=== PATIENT | female | born 1935 | race Caucasian/White ===

== ENCOUNTER → 2020-07-20 08:42 | Outpatient (REF) | payer SELFPAY | LOC: OLS.ACW200 08:42 | PROVIDERS: Internal Medicine; Referring Provider Family Medicine; Visit Provider Family Medicine | DX: Z03.818 Encounter for observation for suspected exposure to other biological agents ruled out (principal) | CPT/HCPCS: 87635; U0003 ==

== ENCOUNTER → 2020-09-23 09:25 | Outpatient (REF) | payer MEDICARE, SELFPAY ==
[2020-09-23 10:37] LABS: Color, Urine Yellow (Yellow); Glucose, Dipstick Normal (Normal); Ketone-Dipstick Negative (Negative); Leukocyte Esterase-Dipstick 500 /ul (Negative); Nitrite-Dipstick Positive (Negative); Occult Blood-Urine 50 /ul (Negative); Protein-Dipstick 30 mg/dl (Negative); Specific Gravity, Urine 1.015 (1.002-1.030); Urine Bilirubin Dipstick Negative (Negative); Urine Clarity Sl. Cloudy (Clear); Urine Urobilinogen Normal (Normal); Urine pH 6.5 (5.0 - 8.0)
== END ==
LOC: OLS.ACW100 09:25
PROVIDERS: Visit Provider Family Medicine
DX: R41.82 Altered mental status, unspecified (principal); R35.0 Frequency of micturition
CPT/HCPCS: 81002; 87086; 87088; 87186

== ENCOUNTER → 2020-10-28 05:00 | Outpatient (REF) | payer MEDICARE, SELFPAY ==
[2020-10-28 08:18] LABS: Erythrocyte Sedimentation Rate 30 mm/hr (0-30)
[2020-10-28 08:19] LABS: Hematocrit 42.6 % (37-47); Hemoglobin 14.3 g/dL (12.0-15.0); Mean Corp Hgb Conc 33.6 g/dL (32-36); Mean Corpuscular Hgb 31.2 pg (27.0-32.0); Mean Corpuscular Volume 92.8 fL (81-99); Platelet Count 311 K/mm3 (150-450); RBC Distribution Width SD 44.1 fl (35.1-43.9); Red Blood Count 4.59 M/mm3 (4.2-5.4); White Blood Count 8.5 K/mm3 (4.4-11.0)
[2020-10-28 08:23] LABS: Vitamin D,25 Hydroxy 52.9 ng/mL
[2020-10-28 08:25] LABS: Hemoglobin A1c 6.3 % (3.8-5.6)
[2020-10-28 08:27] LABS: ALB/GLOB Ratio 0.9 RATIO (0.9-2.4); AST(SGOT) 13 U/L (15-37); Alanine Aminotransfer ALT/SGPT 20 U/L (13-56); Albumin, Serum 3.3 g/dL (3.2-5.0); Alkaline Phosphatase 92 U/L (45-117); Anion Gap 9 (5-15); BUN 8 mg/dL (7-18); BUN/Creat Ratio 16.8 RATIO (10-20); Calcium,Total 9.8 mg/dL (8.5-10.1); Chloride 105 mmol/L (98-107); Creatinine, Serum 0.48 mg/dL (0.55-1.02); EST Glomerular Filtration Rate 132 mL/min (>60); Est Glom Filt Rate - Afr Amer 160 mL/min (>60); Globulin 3.8 g/dL (2.2-4.2); Glucose 134 mg/dL (74-106); Magnesium 1.6 mg/dL (1.6-2.6); Potassium 3.8 mmol/L (3.5-5.1); Protein, Total 7.1 g/dL (6.4-8.2); Sodium Level 138 mmol/L (136-145); Thyroid Stim Hormone (TSH) 0.48 uIU/mL (0.358-3.74)
== END ==
LOC: OLS.ACW100 05:00
PROVIDERS: Referring Provider Family Medicine; Visit Provider Family Medicine
DX: M62.82 Rhabdomyolysis (principal); R55 Syncope and collapse; A41.9 Sepsis, unspecified organism; N30.00 Acute cystitis without hematuria; N10 Acute pyelonephritis; M62.81 Muscle weakness (generalized); R41.841 Cognitive communication deficit
CPT/HCPCS: 36415; 80053; 82306; 83036; 83735; 84443; 85027; 85652

== ENCOUNTER → 2021-02-24 11:05 | Outpatient (REF) | payer MEDICARE, MEDICAID, SELFPAY ==
[2021-02-24 12:04] LABS: Hematocrit 40.4 % (37-47); Hemoglobin 13.3 g/dL (12.0-15.0); Mean Corp Hgb Conc 32.9 g/dL (32-36); Mean Corpuscular Hgb 31.8 pg (27.0-32.0); Mean Corpuscular Volume 96.7 fL (81-99); Mean Platelet Vol. 9.8 fl (6.2-12.0); Platelet Count 256 K/mm3 (150-450); RBC Distribution Width CV 11.9 % (11.6-14.6); RBC Distribution Width SD 42.2 fl (35.1-43.9); Red Blood Count 4.18 M/mm3 (4.2-5.4); White Blood Count 7.2 K/mm3 (4.4-11.0)
[2021-02-24 12:19] LABS: AST(SGOT) 14 U/L (15-37); Alanine Aminotransfer ALT/SGPT 21 U/L (13-56); Alkaline Phosphatase 110 U/L (45-117); Anion Gap 3 (5-15); BUN 9 mg/dL (7-18); BUN/Creat Ratio 18.7 RATIO (10-20); Bilirubin, Direct 0.18 mg/dL (0.00-0.30); Calcium,Total 9.5 mg/dL (8.5-10.1); Chloride 107 mmol/L (98-107); Cholesterol 120 mg/dL (200); Creatinine, Serum 0.48 mg/dL (0.55-1.02); EST Glomerular Filtration Rate 130 mL/min (>60); Est Glom Filt Rate - Afr Amer 158 mL/min (>60); Globulin 3.5 g/dL (2.2-4.2); Glucose 109 mg/dL (74-106); High Density Lipoprotein 51 mg/dL; Potassium 3.9 mmol/L (3.5-5.1); Protein, Total 6.5 g/dL (6.4-8.2); Sodium Level 142 mmol/L (136-145); Triglycerides 131 mg/dL; Very Low Density Lipoprotein 26 mg/dL (5-40)
== END ==
LOC: OLS.ACW100 11:05
PROVIDERS: Visit Provider Family Medicine
DX: R07.9 Chest pain, unspecified (principal)
CPT/HCPCS: 36415; 80048; 80061; 80076; 85027

== ENCOUNTER → 2021-04-27 05:00 | Outpatient (REF) | payer MEDICARE, MEDICAID, SELFPAY ==
[2021-04-27 09:16] LABS: AST(SGOT) 14 U/L (15-37); Alanine Aminotransfer ALT/SGPT 21 U/L (13-56); Albumin, Serum 2.8 g/dL (3.2-5.0); Alkaline Phosphatase 106 U/L (45-117); Anion Gap 6 (5-15); BUN 11 mg/dL (7-18); BUN/Creat Ratio 23.1 RATIO (10-20); Bilirubin, Direct 0.16 mg/dL (0.00-0.30); Calcium,Total 9.4 mg/dL (8.5-10.1); Chloride 107 mmol/L (98-107); Cholesterol 130 mg/dL (200); Creatinine, Serum 0.48 mg/dL (0.55-1.02); EST Glomerular Filtration Rate 131 mL/min (>60); Est Glom Filt Rate - Afr Amer 159 mL/min (>60); Globulin 3.4 g/dL (2.2-4.2); Glucose 111 mg/dL (74-106); High Density Lipoprotein 48 mg/dL; Potassium 3.9 mmol/L (3.5-5.1); Protein, Total 6.2 g/dL (6.4-8.2); Sodium Level 141 mmol/L (136-145); Thyroid Stim Hormone (TSH) 0.87 uIU/mL (0.358-3.74); Triglycerides 135 mg/dL; Very Low Density Lipoprotein 27 mg/dL (5-40)
[2021-04-27 09:36] LABS: Vitamin D,25 Hydroxy 49.1 ng/mL
== END ==
LOC: OLS.ACW100 05:00
PROVIDERS: Visit Provider Family Medicine
DX: M62.82 Rhabdomyolysis (principal); R55 Syncope and collapse; A41.9 Sepsis, unspecified organism; N30.00 Acute cystitis without hematuria; N10 Acute pyelonephritis; M62.81 Muscle weakness (generalized); R41.841 Cognitive communication deficit; E66.01 Morbid (severe) obesity due to excess calories; I10 Essential (primary) hypertension; E11.9 Type 2 diabetes mellitus without complications; E55.9 Vitamin D deficiency, unspecified
CPT/HCPCS: 36415; 80048; 80061; 80076; 82306; 84443

== ENCOUNTER → 2021-12-21 | Outpatient (REF) | payer MEDICAID, SELFPAY ==
[2021-12-21 09:14] LABS: Hematocrit 41.3 % (37-47); Hemoglobin 13.4 g/dL (12.0-15.0); Mean Corp Hgb Conc 32.4 g/dL (32-36); Mean Corpuscular Hgb 31.3 pg (27.0-32.0); Mean Corpuscular Volume 96.5 fL (81-99); Mean Platelet Vol. 9.8 fl (6.2-12.0); Platelet Count 262 K/mm3 (150-450); RBC Distribution Width CV 12.6 % (11.6-14.6); RBC Distribution Width SD 44.5 fl (35.1-43.9); Red Blood Count 4.28 M/mm3 (4.2-5.4); White Blood Count 7.9 K/mm3 (4.4-11.0)
[2021-12-21 09:29] LABS: Vitamin D,25 Hydroxy 51.9 ng/mL
[2021-12-21 09:38] LABS: Hemoglobin A1c 6.4 % (3.8-5.6)
[2021-12-21 09:50] LABS: ALB/GLOB Ratio 0.8 RATIO (0.9-2.4); AST(SGOT) 15 U/L (15-37); Alanine Aminotransfer ALT/SGPT 23 U/L (13-56); Alkaline Phosphatase 120 U/L (45-117); Anion Gap 4 (5-15); BUN 18 mg/dL (7-18); BUN/Creat Ratio 31.4 RATIO (10-20); Calcium,Total 9.5 mg/dL (8.5-10.1); Chloride 107 mmol/L (98-107); Cholesterol 150 mg/dL (200); Creatinine, Serum 0.57 mg/dL (0.55-1.02); EST Glomerular Filtration Rate 106 mL/min (>60); Est Glom Filt Rate - Afr Amer 128 mL/min (>60); Globulin 3.6 g/dL (2.2-4.2); Glucose 135 mg/dL (74-106); High Density Lipoprotein 57 mg/dL; Potassium 4.1 mmol/L (3.5-5.1); Protein, Total 6.6 g/dL (6.4-8.2); Sodium Level 140 mmol/L (136-145); Triglycerides 105 mg/dL; Very Low Density Lipoprotein 21 mg/dL (5-40)
== END | disposition home or self-care (01) ==
LOC: OLS.ACW100 05:00
PROVIDERS: Referring Provider Family Medicine; Visit Provider Family Medicine
DX: M62.82 Rhabdomyolysis (principal); A41.9 Sepsis, unspecified organism; R55 Syncope and collapse; N30.00 Acute cystitis without hematuria; N10 Acute pyelonephritis; M62.81 Muscle weakness (generalized); R41.841 Cognitive communication deficit
CPT/HCPCS: 36415; 80053; 80061; 82306; 83036; 84443; 85027

== ENCOUNTER → 2022-10-01 | Outpatient (REF) | payer MEDICAID, SELFPAY ==
[2022-10-01 07:49] LABS: Anion Gap 9 (5-15); BUN 13 mg/dL (7-18); BUN/Creat Ratio 23.6 RATIO (10-20); Calcium,Total 9.8 mg/dL (8.5-10.1); Chloride 107 mmol/L (98-107); Creatinine, Serum 0.55 mg/dL (0.55-1.02); EST Glomerular Filtration Rate 111 mL/min (>60); Est Glom Filt Rate - Afr Amer 134 mL/min (>60); Glucose 125 mg/dL (74-106); Potassium 4.3 mmol/L (3.5-5.1); Sodium Level 140 mmol/L (136-145)
== END | disposition home or self-care (01) ==
LOC: OLS.ACW100 05:00
PROVIDERS: Visit Provider Family Medicine
DX: M62.82 Rhabdomyolysis (principal); R55 Syncope and collapse; A41.9 Sepsis, unspecified organism; N30.00 Acute cystitis without hematuria; N10 Acute pyelonephritis; M62.81 Muscle weakness (generalized); R41.841 Cognitive communication deficit
CPT/HCPCS: 36415; 80048

== ENCOUNTER → 2022-10-30 | Outpatient (REF) | payer MEDICAID, SELFPAY ==
[2022-10-30 09:22] LABS: Hemoglobin A1c 6.6 % (3.8-5.6)
[2022-10-30 09:23] LABS: Magnesium 1.8 mg/dL (1.6-2.6)
== END | disposition home or self-care (01) ==
LOC: OLS.ACW100 05:00
PROVIDERS: Visit Provider Family Medicine
DX: Z79.899 Other long term (current) drug therapy (principal); I10 Essential (primary) hypertension; N30.00 Acute cystitis without hematuria; R41.841 Cognitive communication deficit; R55 Syncope and collapse; M62.82 Rhabdomyolysis
CPT/HCPCS: 36415; 83036; 83735

== ENCOUNTER → 2023-01-09 | Outpatient (REF) | payer MEDICAID, SELFPAY ==
[2023-01-09 08:20] LABS: Hemoglobin A1c 8.4 % (3.8-5.6)
== END | disposition home or self-care (01) ==
LOC: OLS.ACW100 05:00
PROVIDERS: Visit Provider Family Medicine
DX: M62.82 Rhabdomyolysis (principal); R55 Syncope and collapse; A41.9 Sepsis, unspecified organism; N30.00 Acute cystitis without hematuria; N10 Acute pyelonephritis; R41.841 Cognitive communication deficit; Z79.899 Other long term (current) drug therapy
CPT/HCPCS: 36415; 83036

== ENCOUNTER → 2023-01-16 | Outpatient (REF) | payer MEDICAID, SELFPAY ==
[2023-01-16 10:05] LABS: Vitamin D,25 Hydroxy 80.6 ng/mL
[2023-01-16 10:09] LABS: Cholesterol 121 mg/dL (200); High Density Lipoprotein 46 mg/dL; Magnesium 2.1 mg/dL (1.6-2.6); Thyroid Stim Hormone (TSH) 1.03 uIU/mL (0.358-3.74); Triglycerides 124 mg/dL; Very Low Density Lipoprotein 25 mg/dL (5-40)
== END | disposition home or self-care (01) ==
LOC: OLS.ACW100 05:00
PROVIDERS: Visit Provider Family Medicine
DX: M62.82 Rhabdomyolysis (principal); R55 Syncope and collapse; A41.9 Sepsis, unspecified organism; N30.00 Acute cystitis without hematuria; N10 Acute pyelonephritis; M62.81 Muscle weakness (generalized); R41.841 Cognitive communication deficit
CPT/HCPCS: 36415; 80061; 82306; 83735; 84443

== ENCOUNTER → 2023-02-14 | Outpatient (REF) | payer MEDICAID, SELFPAY ==
[2023-02-14 10:12] LABS: Anion Gap 6 (5-15); BUN 14 mg/dL (7-18); BUN/Creat Ratio 32.2 RATIO (10-20); Calcium,Total 9.5 mg/dL (8.5-10.1); Chloride 108 mmol/L (98-107); Creatinine, Serum 0.44 mg/dL (0.55-1.02); EST Glomerular Filtration Rate 146 mL/min (>60); Est Glom Filt Rate - Afr Amer 176 mL/min (>60); Glucose 128 mg/dL (74-106); Sodium Level 143 mmol/L (136-145); Uric Acid 4.9 mg/dL (2.6-6.0)
== END | disposition home or self-care (01) ==
LOC: OLS.ACW100 04:00
PROVIDERS: Referring Provider Family Medicine; Visit Provider Family Medicine
DX: M62.82 Rhabdomyolysis (principal); R55 Syncope and collapse; A41.9 Sepsis, unspecified organism; N30.00 Acute cystitis without hematuria; N10 Acute pyelonephritis; M62.81 Muscle weakness (generalized); R41.841 Cognitive communication deficit
CPT/HCPCS: 36415; 80048; 84550

== ENCOUNTER → 2023-06-10 | Outpatient (REF) | payer MEDICAID, SELFPAY ==
[2023-06-10 08:37] LABS: Hematocrit 43.7 % (37-47); Hemoglobin 13.8 g/dL (12.0-15.0); Mean Corp Hgb Conc 31.6 g/dL (32-36); Mean Corpuscular Hgb 30.5 pg (27.0-32.0); Mean Corpuscular Volume 96.7 fL (81-99); Mean Platelet Vol. 10.1 fl (6.2-12.0); Platelet Count 262 K/mm3 (150-450); RBC Distribution Width CV 12.5 % (11.6-14.6); RBC Distribution Width SD 44.8 fl (35.1-43.9); Red Blood Count 4.52 M/mm3 (4.2-5.4); White Blood Count 11.1 K/mm3 (4.4-11.0)
[2023-06-10 08:52] LABS: Anion Gap 2 (5-15); BUN 14 mg/dL (7-18); BUN/Creat Ratio 28.3 RATIO (10-20); Calcium,Total 9.3 mg/dL (8.5-10.1); Chloride 106 mmol/L (98-107); EST Glomerular Filtration Rate 125 mL/min (>60); Est Glom Filt Rate - Afr Amer 152 mL/min (>60); Glucose 209 mg/dL (74-106); Potassium 3.9 mmol/L (3.5-5.1); Sodium Level 135 mmol/L (136-145)
== END | disposition home or self-care (01) ==
LOC: OLS.ACW100 05:00
PROVIDERS: Visit Provider Family Medicine
DX: M62.82 Rhabdomyolysis (principal); R55 Syncope and collapse; A41.9 Sepsis, unspecified organism; N30.00 Acute cystitis without hematuria; I10 Essential (primary) hypertension; M62.81 Muscle weakness (generalized); R41.841 Cognitive communication deficit
CPT/HCPCS: 36415; 80048; 83036; 85027

== ENCOUNTER → 2023-07-12 | Outpatient (REF) | payer MEDICAID, SELFPAY ==
[2023-07-12 09:44] LABS: T3 Total - Triiodothyronine 0.84 ng/mL (0.6-1.81); Vitamin D,25 Hydroxy 61.9 ng/mL
[2023-07-12 09:48] LABS: Cholesterol 124 mg/dL (200); High Density Lipoprotein 46 mg/dL; T4 Total, Thyroxin 10.3 ug/dL (4.8-13.9); Thyroid Stim Hormone (TSH) 0.98 uIU/mL (0.358-3.74); Triglycerides 156 mg/dL; Very Low Density Lipoprotein 31 mg/dL (5-40)
== END | disposition home or self-care (01) ==
LOC: OLS.ACW100 05:00
PROVIDERS: Visit Provider Family Medicine
DX: E03.9 Hypothyroidism, unspecified (principal); M62.82 Rhabdomyolysis; R55 Syncope and collapse; A41.9 Sepsis, unspecified organism; N30.00 Acute cystitis without hematuria; N10 Acute pyelonephritis; M62.81 Muscle weakness (generalized); R41.841 Cognitive communication deficit
CPT/HCPCS: 36415; 80061; 82306; 84436; 84443; 84480

== ENCOUNTER → 2023-10-21 | Outpatient (REF) | payer MEDICAID, SELFPAY ==
[2023-10-21 09:21] LABS: Hematocrit 44.7 % (37-47); Hemoglobin 14.4 g/dL (12.0-15.0); Mean Corp Hgb Conc 32.2 g/dL (32-36); Mean Corpuscular Hgb 30.7 pg (27.0-32.0); Mean Corpuscular Volume 95.3 fL (81-99); Mean Platelet Vol. 9.9 fl (6.2-12.0); Platelet Count 259 K/mm3 (150-450); RBC Distribution Width CV 12.6 % (11.6-14.6); RBC Distribution Width SD 43.8 fl (35.1-43.9); Red Blood Count 4.69 M/mm3 (4.2-5.4); White Blood Count 8.4 K/mm3 (4.4-11.0)
[2023-10-21 10:13] LABS: Anion Gap 6 (5-15); BUN 11 mg/dL (7-18); Calcium,Total 9.7 mg/dL (8.5-10.1); Chloride 107 mmol/L (98-107); EST Glomerular Filtration Rate 124 mL/min (>60); Est Glom Filt Rate - Afr Amer 149 mL/min (>60); Glucose 133 mg/dL (74-106); Sodium Level 140 mmol/L (136-145)
[2023-10-22 09:22] LABS: Color, Urine Yellow (Yellow); Glucose, Dipstick Normal (Normal); Ketone-Dipstick Negative (Negative); Leukocyte Esterase-Dipstick 25 /ul (Negative); Nitrite-Dipstick Negative (Negative); Occult Blood-Urine Negative /ul (Negative); Protein-Dipstick Negative (Negative); Urine Bilirubin Dipstick Negative (Negative); Urine Clarity Sl. Cloudy (Clear); Urine Urobilinogen Normal (Normal)
== END ==
LOC: OLS.ACW100 05:00
PROVIDERS: Visit Provider Family Medicine
DX: N39.0 Urinary tract infection, site not specified (principal); M62.82 Rhabdomyolysis; R55 Syncope and collapse; A41.9 Sepsis, unspecified organism
CPT/HCPCS: 36415; 80048; 81002; 85027; 87086; 87088

== ENCOUNTER → 2023-11-11 | Outpatient (REF) | payer MEDICAID, SELFPAY ==
[2023-11-11 09:48] LABS: Cholesterol 224 mg/dL (200); High Density Lipoprotein 50 mg/dL; Triglycerides 194 mg/dL; Very Low Density Lipoprotein 39 mg/dL (5-40)
== END | disposition home or self-care (01) ==
LOC: OLS.ACW100 05:00
PROVIDERS: Visit Provider Family Medicine
DX: M62.82 Rhabdomyolysis (principal); R55 Syncope and collapse; A41.9 Sepsis, unspecified organism; M62.81 Muscle weakness (generalized); R41.841 Cognitive communication deficit
CPT/HCPCS: 36415; 80061

== ENCOUNTER → 2023-12-10 | Outpatient (REF) | payer MEDICAID, SELFPAY ==
[2023-12-10 08:20] LABS: Hematocrit 45.8 % (37-47); Hemoglobin 14.6 g/dL (12.0-15.0); Mean Corp Hgb Conc 31.9 g/dL (32-36); Mean Corpuscular Volume 97.2 fL (81-99); Mean Platelet Vol. 9.8 fl (6.2-12.0); Platelet Count 295 K/mm3 (150-450); RBC Distribution Width CV 13.1 % (11.6-14.6); RBC Distribution Width SD 47.3 fl (35.1-43.9); Red Blood Count 4.71 M/mm3 (4.2-5.4); White Blood Count 8.7 K/mm3 (4.4-11.0)
[2023-12-10 08:35] LABS: Anion Gap 2 (5-15); BUN 11 mg/dL (7-18); BUN/Creat Ratio 16.4 RATIO (10-20); Calcium,Total 9.6 mg/dL (8.5-10.1); Chloride 104 mmol/L (98-107); Creatinine, Serum 0.67 mg/dL (0.55-1.02); EST Glomerular Filtration Rate 88 mL/min (>60); Est Glom Filt Rate - Afr Amer 107 mL/min (>60); Glucose 190 mg/dL (74-106); Potassium 4.4 mmol/L (3.5-5.1); Sodium Level 138 mmol/L (136-145)
== END | disposition home or self-care (01) ==
LOC: OLS.ACW100 05:00
PROVIDERS: Visit Provider Family Medicine
DX: M62.82 Rhabdomyolysis (principal); R55 Syncope and collapse; A41.9 Sepsis, unspecified organism; N10 Acute pyelonephritis; N30.00 Acute cystitis without hematuria
CPT/HCPCS: 36415; 80048; 83036; 85027

== ENCOUNTER → 2024-01-13 | Outpatient (REF) | payer MEDICAID, SELFPAY ==
[2024-01-13 09:19] LABS: Vitamin D,25 Hydroxy 48.2 ng/mL
== END | disposition home or self-care (01) ==
LOC: OLS.ACW100 04:00
PROVIDERS: Referring Provider Family Medicine; Visit Provider Family Medicine
DX: M62.82 Rhabdomyolysis (principal); R55 Syncope and collapse; A41.9 Sepsis, unspecified organism; N30.00 Acute cystitis without hematuria; N10 Acute pyelonephritis; M62.81 Muscle weakness (generalized); R41.841 Cognitive communication deficit
CPT/HCPCS: 36415; 82306

== ENCOUNTER → 2024-01-17 | Outpatient (REF) | payer MEDICAID, SELFPAY ==
[2024-01-17 08:32] LABS: Vitamin D,25 Hydroxy 38.1 ng/mL
[2024-01-17 08:40] LABS: Cholesterol 243 mg/dL (200); High Density Lipoprotein 44 mg/dL; Magnesium 1.9 mg/dL (1.6-2.6); Thyroid Stim Hormone (TSH) 0.54 uIU/mL (0.358-3.74); Triglycerides 194 mg/dL; Very Low Density Lipoprotein 39 mg/dL (5-40)
== END | disposition home or self-care (01) ==
LOC: OLS.ACW100 05:00
PROVIDERS: Visit Provider Family Medicine
DX: M62.82 Rhabdomyolysis (principal); R55 Syncope and collapse; A41.9 Sepsis, unspecified organism; N30.00 Acute cystitis without hematuria; M62.81 Muscle weakness (generalized); R41.841 Cognitive communication deficit
CPT/HCPCS: 36415; 80061; 82306; 83735; 84443

== ENCOUNTER → 2024-03-01 | Outpatient (REF) | payer MEDICAID, SELFPAY ==
[2024-03-02 08:51] LABS: Mucous, Urine 0 SEEN /hpf (<or=2+); Red Blood Cells-Urine 0 SEEN /hpf (0-5)
[2024-03-02 09:11] LABS: Color, Urine Yellow (Yellow); Glucose, Dipstick Normal (Normal); Ketone-Dipstick Negative (Negative); Leukocyte Esterase-Dipstick 100 /ul (Negative); Nitrite-Dipstick Negative (Negative); Occult Blood-Urine Negative /ul (Negative); Protein-Dipstick 30 mg/dl (Negative); Specific Gravity, Urine 1.025 (1.002-1.030); Urine Bilirubin Dipstick Negative (Negative); Urine Clarity Sl. Cloudy (Clear); Urine Urobilinogen Normal (Normal)
[2024-03-02 09:19] LABS: Bacteria 3+ /hpf (None Seen); Calcium Oxalate Crystals Ur 1+ /hpf (<or=2+); White Blood Cells 10-25 SEEN /hpf (0-5)
[2024-03-02 09:20] LABS: Squamous Epithelial Cells - UA 5-10 SEEN /hpf (5-10)
== END | disposition home or self-care (01) ==
LOC: OLS.ACW100 22:22
PROVIDERS: Visit Provider Family Medicine
DX: M62.82 Rhabdomyolysis (principal); R55 Syncope and collapse; A41.9 Sepsis, unspecified organism; N30.00 Acute cystitis without hematuria; N10 Acute pyelonephritis; M62.81 Muscle weakness (generalized); R41.841 Cognitive communication deficit
CPT/HCPCS: 81001; 87077; 87086; 87088; 87186

== ENCOUNTER → 2024-05-04 | Outpatient (REF) | payer MEDICAID, SELFPAY ==
[2024-05-04 08:56] LABS: Anion Gap 7 (5-15); BUN 15 mg/dL (7-18); BUN/Creat Ratio 31.1 RATIO (10-20); Calcium,Total 9.8 mg/dL (8.5-10.1); Chloride 106 mmol/L (98-107); Creatinine, Serum 0.48 mg/dL (0.55-1.02); EST Glomerular Filtration Rate 129 mL/min (>60); Est Glom Filt Rate - Afr Amer 156 mL/min (>60); Glucose 120 mg/dL (74-106); Sodium Level 140 mmol/L (136-145)
== END | disposition home or self-care (01) ==
LOC: OLS.ACW100 05:00
PROVIDERS: Visit Provider Family Medicine
DX: M62.82 Rhabdomyolysis (principal); R55 Syncope and collapse; A41.9 Sepsis, unspecified organism; N30.00 Acute cystitis without hematuria; N10 Acute pyelonephritis; M62.81 Muscle weakness (generalized); R41.841 Cognitive communication deficit
CPT/HCPCS: 36415; 80048; 83036

== ENCOUNTER → 2024-07-13 | Outpatient (REF) | payer MEDICAID, SELFPAY ==
[2024-07-13 08:16] LABS: Hematocrit 42.5 % (37-47); Hemoglobin 13.7 g/dL (12.0-15.0); Mean Corp Hgb Conc 32.2 g/dL (32-36); Mean Corpuscular Hgb 31.4 pg (27.0-32.0); Mean Corpuscular Volume 97.3 fL (81-99); Mean Platelet Vol. 9.7 fl (6.2-12.0); Platelet Count 241 K/mm3 (150-450); RBC Distribution Width CV 12.6 % (11.6-14.6); RBC Distribution Width SD 44.9 fl (35.1-43.9); Red Blood Count 4.37 M/mm3 (4.2-5.4); White Blood Count 7.8 K/mm3 (4.4-11.0)
[2024-07-13 08:45] LABS: Anion Gap 4 (5-15); BUN 12 mg/dL (7-18); BUN/Creat Ratio 25.4 RATIO (10-20); Calcium,Total 9.3 mg/dL (8.5-10.1); Chloride 108 mmol/L (98-107); Cholesterol 228 mg/dL (200); Creatinine, Serum 0.47 mg/dL (0.55-1.02); EST Glomerular Filtration Rate 132 mL/min (>60); Est Glom Filt Rate - Afr Amer 159 mL/min (>60); Glucose 113 mg/dL (74-106); High Density Lipoprotein 41 mg/dL; Magnesium 1.9 mg/dL (1.6-2.6); Potassium 4.1 mmol/L (3.5-5.1); Sodium Level 141 mmol/L (136-145); T4 Total, Thyroxin 8.4 ug/dL (4.8-13.9); Triglycerides 166 mg/dL; Very Low Density Lipoprotein 33 mg/dL (5-40)
[2024-07-13 09:00] LABS: T3 Total - Triiodothyronine 0.99 ng/mL (0.6-1.81); Vitamin D,25 Hydroxy 36.8 ng/mL
[2024-07-13 09:45] LABS: Hemoglobin A1c 6.8 % (3.8-5.6)
== END | disposition home or self-care (01) ==
LOC: OLS.ACW100 05:00
PROVIDERS: Visit Provider Family Medicine
DX: M62.82 Rhabdomyolysis (principal); R55 Syncope and collapse; N30.00 Acute cystitis without hematuria; N10 Acute pyelonephritis; M62.81 Muscle weakness (generalized); R41.841 Cognitive communication deficit
CPT/HCPCS: 36415; 80048; 80061; 82306; 83036; 83735; 84436; 84443; 84480; 85027

== ENCOUNTER → 2025-01-11 | Outpatient (REF) | payer MEDICAID, SELFPAY ==
[2025-01-11 08:41] LABS: Hematocrit 42.8 % (37-47); Hemoglobin 14.1 g/dL (12.0-15.0); Mean Corp Hgb Conc 32.9 g/dL (32-36); Mean Corpuscular Hgb 31.6 pg (27.0-32.0); Mean Platelet Vol. 9.6 fl (6.2-12.0); Platelet Count 234 K/mm3 (150-450); RBC Distribution Width CV 12.4 % (11.6-14.6); Red Blood Count 4.46 M/mm3 (4.2-5.4); White Blood Count 8.7 K/mm3 (4.4-11.0)
[2025-01-11 09:55] LABS: Anion Gap 10 (5-15); BUN 15 mg/dL (4-19); BUN/Creat Ratio 32.4 RATIO (10-20); Calcium,Total 9.7 mg/dL (7.6-11.0); Carbon Dioxide 26.7 mmol/L (21.0-32.0); Chloride 103 mmol/L (98-108); Cholesterol 243 mg/dL (<=200); Creatinine, Serum 0.45 mg/dL (0.70-1.20); EST Glomerular Filtration Rate 92 (>60); Glucose 143 mg/dL (70-99); High Density Lipoprotein 43 mg/dL; Low Density Lipoprotein Calc. 169 mg/dL; Magnesium 1.9 mg/dL (1.5-2.2); Potassium 4.2 mmol/L (3.3-5.1); Sodium Level 139 mmol/L (133-145); T4 Total, Thyroxin 6.7 ug/dL (4.8-13.9); Triglycerides 154 mg/dL; Very Low Density Lipoprotein 31 mg/dL (5-40); Vitamin D,25 Hydroxy 16.7 ng/mL (30-100); cholesterol:hdl ratio screen 5.68
== END | disposition home or self-care (01) ==
LOC: OLS.ACW100 05:00
PROVIDERS: Visit Provider Family Medicine
DX: M62.82 Rhabdomyolysis (principal); R55 Syncope and collapse; A41.9 Sepsis, unspecified organism; N30.00 Acute cystitis without hematuria; N10 Acute pyelonephritis; M62.81 Muscle weakness (generalized); R41.841 Cognitive communication deficit
CPT/HCPCS: 36415; 80048; 80061; 82306; 83036; 83735; 84436; 84443; 84480; 85027

== ENCOUNTER → 2025-03-15 05:00 | Outpatient (REF) | payer MEDICAID, SELFPAY ==
--- OUTSIDE RECORDS SUMMARY | 2025-03-15 04:02 | XMS RPT_ITS | CCD ---
Author Organization [facility] Care Team Providers Care Environmental Compliance Specialist Name Role Phone Maida Doshi Primary Care Provider [phone] Unavailable Primary Care Provider Unavailabl e Unavailable Primary Care Provider Unavailabl e LÓPEZ AYALA Referring Unavailable PROVIDER, UNKNOWN Attending Unavailable PROVIDER, UNKNOWN Admitting Unavailable PATIENT, SELF Referring Unavailable PROVIDER, UNKNOWN Attending Unavailable PROVIDER, UNKNOWN Admitting Unavailable Dileep NAGEL, Maida Primary Care Provider PATRICIA HARRIS Attending Unavailable PATRICIA HARRIS Referring Unavailable MAIDA DOSHI Primary Care Unavailable MAIDA DOSHI Primary Care Unavailable PATRICIA HARRIS Attending Unavailable MAIDA DOSHI Primary Care Unavailable THERESE DINERO Attending Unavailable Adelfo Banks Attending Provider Unavailamna e Adelfo Banks Attending Unavailable Adelfo Banks Attending Unavailable Adelfo Banks Attending Unavailable Adelfo Banks Attending Unavailable Allergies Allergy Classification Reported Allergen(s) Allergy Type Date of Onset Reaction(s) Facility (5 sources) Adhesive Tape Propensity to adverse reactions to drug 5 [place], [place] (5 sources) Penicillins Propensity to adverse reactions to drug 5 [place] (5 sources) Sulfonamides (Antibiotic) Propensity to adverse reactions to drug 5 [place] (1 source) ADHESIVE TAPE-SILICONES; Translations: [ADHESIVE TAPE-SILICONES] Propensity to adverse reactions to drug (disorder) 0 [facility] Repository Medications Current Medications Medication Drug Class(es) Dates Sig (Normalized) Sig (Original) acetaminophen 500 mg oral tablet (1 source) Start: 06-19-2022 End: 07-03-2022 take 1 tablet by mouth every six hours as needed for pain acetaminophen (TYLENOL) 500 MG tablet Take 1 Tablet by mouth every 6 hours as needed for Pain or Fever for up to 14 days. 30 Tablet 0 06/19/2022 07/03/2022 Active atorvastatin 40 mg oral tablet (3 sources) HMG-CoA Reductase Inhibitor Start: 03-27-2021 atorvastatin (LIPITOR) 40 mg tablet B Yponwdj-Dbwkjf-EK (VITAMIN B50 COMPLEX PO) (5 sources) B Complex-Biotin -FA (VITAMIN B50 COMPLEX PO) Take by mouth 0 Active chlorhexidine gluconate 1.2 mg/ml mouthwash (3 sources) Start: 06-19-2022 End: 07-03-2022 take 15 mL by mouth twice daily chlorhexidine (Peridex) 0.12 % oral solution Take 15 mL by mouth 2 times daily for 14 days. 420 mL 0 06/19/2022 Active citalopram 20 mg oral tablet (2 sources) Serotonin Reuptake Inhibitor Start: 03-25-2020 take 1 tablet by mouth once daily citalopram (CELEXA) 20 MG tablet Indications: Other hyperlipidemia TAKE 1 TABLET BY MOUTH EVERY DAY 90 tablet 1 03/25/2020 Active Start: 04-28-2019 take 1 tablet by mani th once daily citalopram (CELEXA) 20 MG tablet Indications: Other hyperlipidemia TAKE 1 TABLET BY MOUTH EVERY DAY 30 tablet 3 04/28/2019 Active diazePAM 5 mg oral tablet (1 source) Benzodiazepine Start: 09-30-2018 take 1 tablet by mouth once daily as needed diazepam (VALIUM) 5 MG tablet TAKE 1 TABLET BY MOUTH EVERY DAY NEEDED 1 09/30/2018 Active DULoxetine 60 mg delayed release oral capsule (6 sources) Serotonin and Norepinephrine Reuptake Inhibitor Start: 06-02-2022 duloxetine (CYMBALTA) 60 MG capsule Start: 03-14-2021 duloxetine (CY MBALTA) 30 MG capsule ergocalciferol 1.25 mg oral capsule (3 sources) Provitamin D2 Compound Start: 03-27-2021 vitamin D2 ergocalciferol (DRISDOL) 1.25 MG (17836 UT) capsule gabapentin 300 mg oral capsule (5 sources) Anti-epileptic Agent Start: 03-30-2021 gabapentin (NEURONTI N) 300 MG capsule Start: 03-25-2020 End: 06-23-2020 take 1 capsule by mouth once daily gabapentin (NEURONTIN) 100 MG capsule Indications: Neuropathy TAKE 1 CAPSULE BY MOUTH EVERY DAY 90 capsule 1 03/25/2020 06/23/2020 Active Start: 01-20-2020 End: 02-19-2020 take 1 capsule by mouth once daily gabapentin (NEURONTIN) 100 MG capsule Indications: Neuropathy Take 1 capsule by mouth daily for 30 days. 30 capsule 0 01/20/2020 02/19/2020 Active glipiZIDE 10 mg oral tablet (2 sources) Sulfonylurea Start: 01-20-2020 take 1 tablet by mouth twice daily glipiZIDE (GLUCOTROL) 10 MG tablet Indications: Other hyperlipidemia , HTN (hypertension), benign , Thyroid nodule TAKE 1 TABLET BY MOUTH TWICE A DAY 60 tablet 3 01/20/2020 Active Start: 05-15-2019 take 1 tablet by mani twice daily glipiZIDE (GLUCOTROL) 10 MG tablet Indications: Other hyperlipidemia TAKE 1 TABLET BY MOUTH TWICE A DAY 60 tablet 3 05/15/2019 Active Handicap Placard MISC (11 sources) Start: 04-09-[address] MISC by Does not apply route DX arthritis 5 years 1 each 0 04/09/2019 Active Start: 04-08-[address] MISC by Does not apply route DX arthritis 5 years 1 each 0 04/08/2019 Active Start: 12-31-[address] MISC by Does not apply route DX Arthritis 5 years 1 each 0 12/31/2018 Active hydroCHLOROthiazide 12.5 mg / lisinopril 10 mg oral tablet (1 source) Thiazide Diuretic, Angiotensin Converting Enzyme Inhibitor Start: 12-31-2018 take 1 tablet by mouth twice daily lisinopril-hydrochlorothiazide (PRINZIDE;ZESTORETIC) 10-12.5 MG per tablet Indications: HTN (hypertension), benign , Other hyperlipidemia TAKE 1 TABLET BY MOUTH TWICE A DAY 60 tablet 3 12/31/2018 Active ibuprofen 600 mg oral tablet (1 source) Nonsteroidal Anti-inflammat ory Drug Start: 06-19-2022 End: 07-03-2022 take 1 tablet by mouth every six hours as needed for pain ibuprofen (MOTRIN) 600 MG tablet Take 1 Tablet by mouth every 6 hours as needed for Pain for up to 14 days. 30 Tablet 0 06/19/2022 07/03/2022 Active 3 ml insulin glargine 100 unt/ml pen injector (6 sources) Insulin Analog Start: 04-05-2021 Lantus SoloStar 100 UNIT/ML SOPN injection 3 ml insulin lispro 100 unt/ml pen injector (3 sources) Insulin Analog Start: 06-03-2022 HumaLOG KwikPen 100 UNIT/ML SOPN injection levothyroxine sodium 0.1 mg oral tablet (8 sources) l-Thyroxine Start: 05-26-2022 levothyroxine (SYNTHROID) 10 0 MCG tablet Start: 05-12-2020 take 1 tablet by mani th once daily levothyroxine (SYNTHROID) 100 MCG tablet Indications: Other hyperlipidemia , HTN (hypertension), benign TAKE 1 TABLET BY MOUTH EVERY DAY 90 tablet 1 05/12/2020 Active Start: 03-25-2020 take 1 tablet by mani th once daily levothyroxine (SYNTHROID) 100 MCG tablet Indications: Other hyperlipidemia , HTN (hypertension), benign , Thyroid nodule TAKE 1 TABLET BY MOUTH EVERY DAY 90 tablet 1 03/25/2020 Active Start: 01-20-2020 take 1 tablet by mani th once daily levothyroxine (SYNTHROID) 100 MCG tablet Indications: Other hyperlipidemia , HTN (hypertension), benign , Thyroid nodule Take 1 tablet by mouth everyday 30 tablet 3 01/20/2020 Active Start: 06-02-2019 take 1 tablet by mani th once daily levothyroxine (SYNTHROID) 100 MCG tablet Indications: Other hyperlipidemia TAKE 1 TABLET BY MOUTH EVERY DAY 30 tablet 3 06/02/2019 Active lisinopril 5 mg oral tablet (7 sources) Angiotensin Converting Enzyme Inhibitor Start: 04-05-2021 lisinopril (ZESTRIL) 5 MG tablet Start: 05-12-2020 take 1 tablet by mani th once daily lisinopril (PRINIVIL;ZESTRIL) 5 MG tablet Take 1 tablet by mouth daily 30 tablet 3 05/12/2020 Active Start: 04-29-2020 take 1 tablet by mani th once daily lisinopril (PRINIVIL;ZESTRIL) 5 MG tablet Take 1 tablet by mouth daily 30 tablet 3 04/29/2020 Active Start: 01-20-2020 take 1 tablet by mani th once daily lisinopril (PRINIVIL;ZESTRIL) 10 MG tablet Take 1 tablet by mouth daily 30 tablet 5 01/20/2020 Active LORazepam 1 mg oral tablet (3 sources) Benzodiazepine Start: 06-08-2022 LORazepam (ATIVAN) 1 MG tablet meloxicam 7.5 mg oral tablet (2 sources) Nonsteroidal Anti-inflammatory Drug Start: 01-20-2020 take 1 tablet by mouth once daily as needed for pain meloxicam (MOBIC) 7.5 MG tablet Indications: Arthritis , Other hyperlipidemia Take 1 tablet by mouth daily as needed for pain 30 tablet 3 01/20/2020 Active Start: 04-28-2019 take 1 tablet by mani th once daily meloxicam (MOBIC) 7.5 MG tablet Indications: Arthritis , Other hyperlipidemia TAKE 1 TABLET BY MOUTH EVERY DAY 30 tablet 3 04/28/2019 Active Multiple Vitamins-Minerals (MULTIVITAMIN ADULT PO) (3 sources) Multiple Vitamins-Minerals (MULTIVITAMIN ADULT PO) Take by mouth 0 Active pantoprazole 40 mg delayed release oral tablet (3 sources) Proton Pump Inhibitor Start: 022 pantoprazole (PROTONIX) 40 MG tablet VITAMIN E PO (5 sources) take 2000 [IU] by mouth once daily VITAMIN E PO Indications: 2000units daily Take by mouth Indications: 2000units daily 0 Active Problems Active Problems Problem Classification Problem Date Documented Date Episodic/Chronic Anxiety disorders (11 sources) Anxiety; Translations: [Anxiety disorder, unspecified] Onset: 01-01-2019 01-01-2019 Chronic Diabetes mellitus with complications (1 source) Type 2 diabetes mellitus with hyperglycemia; Translations: [Uncontrolled type 2 diabetes mellitus with hyperglycemia (HCC)] Onset: 07-06-2020 Chronic Diabetes mellitus without complication (12 sources) Diabetes mellitus without complication; Translations: [Type 2 diabetes mellitus] Onset: 06-16-2015 06-16-2015 Chronic Disorders of lipid metabolism (12 sources) Hyperlipidemia; Translations: [Hyperlipidemia, unspecified] Onset: 06-16-2015 06-16-2015 Chronic Disorders of teeth and jaw (2 sources) Chronic periodontitis; Translations: [Chronic periodontitis, unspecified] Onset: 06-19-2022 Chronic Essential hypertension (3 sources) Benign hypertension; Translations: [Essential (primary) hypertension] Onset: 07-06-2020 Chronic External cause codes: Fall (1 source) Fall; Translations: [Fall, initial encounter] Mood disorders (11 sources) Depressive disorder; Translations: [Depression] Onset: 06-16-2015 06-16-2015 Chronic Osteoarthritis (11 sources) Arthritis; Translations: [Unspecified osteoarthritis, unspecified site] Onset: 06-16-2015 06-16-2015 Chronic Other aftercare (1 source) Surgical follow-up; Translations: [Encounter for staple removal] Episodic Other connective tissue disease (1 source) Muscle weakness (generalized); Translations: [Muscle weakness (generalized)] Onset: 01-22-2025 Episodic Other connective tissue disease (1 source) Rhabdomyolysis; Translations: [Rhabdomyolysis] Onset: 01-22-2025 Episodic Other nervous system disorders (1 source) Cognitive communication deficit; 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] Onset: 01-22-2025 Chronic Other nutritional; endocrine; and metabolic disorders (10 sources) Morbid obesity; Translations: [Morbid (severe) obesity due to excess calories] Onset: 01-20-2020 01-20-2020 Chronic Other nutritional; endocrine; and metabolic disorders (1 source) Body mass index (BMI) 45.0-49.9, adult; Translations: [Body mass index (BMI) 45.0-49.9, adult ([facility])] Onset: 04-17-2022 Chronic Septicemia (except in labor) (1 source) Sepsis, unspecified organism; Translations: [Sepsis, unspecified organism] Onset: 01-22-2025 Episodic Spondylosis; intervertebral disc disorders; other back problems (3 sources) Degeneration of lumbar intervertebral disc; Translations: [Other intervertebral disc degeneration, lumbar region] Onset: 02-25-2023 02-25-2023 Chronic Spondylosis; intervertebral disc disorders; other back problems (6 sources) Low back pain; Translations: [Lumbar pain] Onset: 02-25-2023 02-22-2023 Episodic Syncope (4 sources) Syncope and collapse; Translations: [Syncope and collapse] Onset: 04-27-2020 Resolved: 04-30-2020 04-30-2020 Episodic Thyroid disorders (12 sources) Hypothyroidism; Translations: [Thyroid nodule] Onset: 06-16-2015 06-16-2015 Chronic Unclassified (1 source) Low back pain, unspecified; Translations: [Low back pain, unspecified] Onset: 02-25-2023 Urinary tract infections (2 sources) Acute pyelonephritis; Translations: [Acute cystitis without hematuria] Onset: 01-22-2025 Episodic Past or Other Problems Problem Classification Problem Date Documented Date Episodic/Chronic Allergic reactions (11 sources) H/O: non-drug allergy; Translations: [Allergy status to unspecified drugs, medicaments and biological substances status] Onset: 06-16-2015 06-16-2015 Episodic Disorders of teeth and jaw (4 sources) Carious exposure of pulp ; Translations: [Dental caries, unspecified] Onset: 06-19-2022 Episodic Other connective tissue disease (1 source) Other symptoms and signs involving the musculoskeletal system; Translations: [Weakness of both lower extremities] Onset: 07-06-2020 Episodic Other injuries and conditions due to external causes (1 source) Injury of head; Translations: [Injury of head, initial encounter] Episodic Other screening for suspected conditions (not mental disorders or infectious disease) (1 source) Blood chemistry abnormal; Translations: [Abnormal finding of blood chemistry, unspecified] Episodic Superficial injury; contusion (1 source) Hematoma of scalp; Translations: [Scalp hematoma, initial encounter] Episodic Unclassified (1 source) Low back pain, unspecified; Translations: [Low back pain, unspecified] Onset: 02-25-2023 Results Test Name Value Interpretation Reference Range Facility Anion gap in Serum or Plasma Ordered By: Adelfo Dhaliwal on 01-11-2025 Anion gap [Moles/Vol] 10 mmol/L - [facility] BUN/creatinine ratioOrdered By: Adelfo Dhaliwal on 01-11-2025 Urea nitrogen/Creatinine [Mass ratio] 32.4 mg/mg High - [facility] CBC-Complete Blood Cnt No Di ffon 01-11-2025 Erythrocyte distribution width (RBC) [Ratio] 12.4 % Normal 11.6-14.6 [facility] Comment on above: Order Comment: 119-1 Performed By: #### L 100.0500 #### [facility] [address] [place], [place], [id number] Hematocrit (Bld) [Volume fraction] 42.8 % Normal 37-47 [facility] Comment on above: Order Comment: 119-1 Performed By: #### L 100.0500 #### [facility] [address] [place], [address] Hemoglobin (Bld) [Mass/Vol] 14.1 g/dL Normal 12.0-15.0 [facility] Comment on above: Order Comment: 119-1 Performed By: #### L 100.0500 #### [facility] [address] [place], [address] MCH (RBC) [Entitic mass] 31.6 pg Normal 27.0-32.0 [facility] Comment on above: Order Comment: 119-1 Performed By: #### L 100.0500 #### [facility] [address] [place], [address] MCHC (RBC) [Mass/Vol] 32.9 g/dL Normal 32-36 [facility] Comment on above: Order Comment: 119-1 Performed By: #### L 100.0500 #### [facility] [address] [place], [address] MCV (RBC) [Entitic vol] 96.0 fL Normal 81-99 [place] Comment on above: Order Comment: 119-1 Performed By: #### L 100.0500 #### [facility] [address] [place], [address] Platelet mean volume (Bld) [Entitic vol] 9.6 fL Normal 6.2-12.0 [facility] Comment on above: Order Comment: 119-1 Performed By: #### L 100.0500 #### [facility] [address] [place], [address] Platelets (Bld) [#/Vol] 234 10*3/uL Normal 150-450 [facility] Comment on above: Order Comment: 119-1 Performed By: #### L 100.0500 #### [facility] [address] [place], [address] RBC (Bld) [#/Vol] 4.46 10*6/uL Normal 4.2-5.4 [facility] Comment on above: Order Comment: 119-1 Performed By: #### L 100.0500 #### [facility] [address] [place], [address] RDW SD 44.0 fl High 35.1-43.9 [facility] Comment on above: Order Comment: 119-1 Performed By: #### L 100.0500 #### [facility] [address] [place], [address] WBC (Bld) [#/Vol] 8.7 10*3/uL Normal 4.4-11.0 [facility] Comment on above: Order Comment: 119-1 Performed By: #### L 100.0500 #### [facility] [address] [place], [address] Calculated very low density lipoprotein (VLDL) cholesterol measurementOrdered By: Adelfo Dhaliwal on 01-11-2025 Calculated very low density lipoprotein (VLDL) cholesterol measurement 31 mg/dL 5-40 [facility] Carbon dioxide, total [Moles /volume] in Central venous bloodOrdered By: Adelfo Dhaliwal on 01-11-2025 CO2 [Moles/Vol] 26.7 mmol/L 21.0-32.0 [facility] Chloride assayOrdered By: Danielle Dhaliwal on 01-11-2025 Chloride [Moles/Vol] 103 mmol/L 98-108 [facility] Erythrocyte distribution wid th ratioOrdered By: Abelino Underwood on 01-11-2025 Erythrocyte distribution width (RBC) [Ratio] 12.4 % 11.6-14.6 [facility] Erythrocyte distribution wid th standard deviationOrdered By: Abelino Underwood on 01-11-2025 Erythrocyte distribution width (RBC) [Ratio] 44.0 fl High 35.1-43.9 [facility] Glomerular filtration rate ( GFR) estimation/1.73 sq m using serum, plasma, or whole bOrdered By: Adelfo Dhaliwal on 01-11-2025 GFR/1.73 sq M.predicted among non-blacks MDRD (S/P/Bld) [Vol rate/Area] 92 mL/min/{1.73_m2} >60 [facility] Comment on above: mL/min/1.73m2 CKD-EP I Creatinine Equation (2020) Hematocrit Auto (Bld) [Volum e fraction]Ordered By: Abelino Underwood on 01-11-2025 Hematocrit (Bld) [Volume fraction] 42.8 % 37-47 [facility] Hemoglobin A1c percentageOrd ered By: Adelfo hDaliwal on 01-11-2025 HbA1c (Bld) [Mass fraction] 8.0 % High <5.7 [facility] Comment on above: Normal < 5.7 % Predi abetic 5.7 - 6.4 % Diabetic >or= 6.5 % Please note range changes. Hemoglobin measurementOrdere d By: Abelino Underwood on 01-11-2025 Hemoglobin (Bld) [Mass/Vol] 14.1 g/dL 12.0-15.0 [facility] LDL calc ser/plasOrdered By: Adelfo Dhaliwal on 01-11-2025 Cholesterol in LDL [Mass/Vol] 169 mg/dL [facility] Comment on above: Dfczncixdw=333-650 m g/dL & Higher Kmpp=416 mg/dL or greater MCV (mean corpuscular volume ) determinationOrdered By: Abelino Underwood on 01-11-2025 MCV (RBC) [Entitic vol] 96.0 fL 81-99 [facility] Magnesium measurement (mass/ volume)Ordered By: Adelfo Dhaliwal on 01-11-2025 Magnesium (Unsp spec) [Mass/Vol] 1.9 mg/dL 1.5-2.2 [facility] Mean corpuscular hemoglobin (MCH) determinationOrdered By: Abelino Underwood on 01-11-2025 MCH (RBC) [Entitic mass] 31.6 pg 27.0-32.0 [facility] Mean corpuscular hemoglobin concentration (MCHC) determinationOrdered By: Abelino Underwood on 01-11-2025 MCHC (RBC) [Mass/Vol] 32.9 g/dL 32-36 [facility] Mean platelet volume determi nationOrdered By: Abelino Underwood on 01-11-2025 Platelet mean volume (Bld) [Entitic vol] 9.6 fL 6.2-12.0 [facility] Platelet countOrdered By: Raphael Barnes on 01-11-2025 Platelets (Bld) [#/Vol] 234 10*3/uL 150-450 [facility] Potassium measurement (mass/ volume)Ordered By: Adelfo Dhaliwal on 01-11-2025 Potassium (Unsp spec) [Mass/Vol] 4.2 mmol/L 3.3-5.1 [facility] RBC Auto (Bld) [#/Vol]Ordere d By: Abelino Underwood on 01-11-2025 RBC (Bld) [#/Vol] 4.46 10*6/uL 4.2-5.4 [facility] Screening total cholesterol/ high density lipoprotein (HDL) cholesterol ratioOrdered By: Adelfo Dhaliwal on 01-11-2025 Cholesterol.total/Choles terol in HDL [Mass ratio] 5.68 {ratio} [facility] Serum creatinine measurement (mass/volume)Ordered By: Adelfo Dhaliwal on 01-11-2025 Creatinine [Mass/Vol] 0.45 mg/dL Low 0.70-1.20 [facility] Serum glucose measurement (m ass/volume)Ordered By: Adelfo Dhaliwal on 01-11-2025 Glucose [Mass/Vol] 143 mg/dL High 70-99 [facility] Serum or plasma calcium ivette urement (mass/volume)Ordered By: Adelfo Dhaliwal on 01-11-2025 Calcium [Mass/Vol] 9.7 mg/dL 7.6-11.0 [facility] Serum or plasma cholesterol in HDL measurement (mass/volume)Ordered By: Adelfo Dhaliwal on 01-11-2025 Cholesterol in HDL [Mass/Vol] 43 mg/dL >40 [facility] Comment on above: National Cholesterol Education Program (NCEP) guidelines:<40 mg/dL: Low HDL-cholesterol (major risk factor for CHD)>= 60 mg/dL: High HDL-cholesterol (negative risk factor for CHD)HDL-cholesterol is affected by a number of factors, e.g. smoking, exercise, hormones, sex and age. Serum or plasma cholesterol measurement (mass/volume)Ordered By: Adelfo Dhaliwal on 01-11-2025 Cholesterol [Mass/Vol] 243 mg/dL High <201 [facility] Comment on above: Cholesterol level, D esirable <200 mg/dLBorderline high cholesterol 200-239 mg/dLHigh cholesterol >=240 mg/dLRecommendations of the NCEP Adult Treatment Panel for the following risk-cutoff thresholds for the [place] population. Serum or plasma triiodothyro nine (T3) measurement (mass/volume)Ordered By: Adelfo Dhaliwal on 01-11-2025 T3 [Mass/Vol] 0.70 ng/mL Low 0.80-2.00 [facility] Serum or plasma urea nitroge n measurement (mass/volume)Ordered By: Adelfo Dhaliwal on 01-11-2025 Urea nitrogen [Mass/Vol] 15 mg/dL 4-19 [facility] Sodium levelOrdered By: Tahir Dhaliwal on 01-11-2025 Sodium [Moles/Vol] 139 mmol/L 133-145 [facility] TSH DL <= 0.005 mIU/L QnOrde red By: Adelfo Dhaliwal on 01-11-2025 TSH Qn 2.080 uIU/mL 0.300-4.200 [facility] ThyroxineOrdered By: Adelfo Dhaliwal on 01-11-2025 T4 [Mass/Vol] 6.7 ug/dL 4.8-13.9 [facility] Triglycerides measurementOrd ered By: Adelfo Dhaliwal on 01-11-2025 Triglyceride [Mass/Vol] 154 mg/dL <199 [facility] Comment on above: The drugs N-Acetylcy steine and Metamizole may falsely depress this assay. Normal range: <150 mg/dLBorderline High: 150-199 mg/dLHigh: 200-499 mg/dLVery High: >500 mg/dL White blood cell (WBC) count Ordered By: Abelino Underwood on 01-11-2025 WBC (Bld) [#/Vol] 8.7 10*3/uL 4.4-11.0 [facility] CBC W Auto Differential pane l (Bld)on 12-23-2024 Basophils (Bld) [#/Vol] 0.05 10*3/uL Normal <0.11 [facility] Comment on above: Order Comment: Speci men Type: BLOOD SPECIMEN Ordering Facility: [facility] Address: [address] [place] [address] Performed By: #### 5 7021-8 #### [facility] CLIA [id number] [address] [place] Basophils/100 WBC (Bld) 0.5 % Normal [facility] Comment on above: Order Comment: Speci men Type: BLOOD SPECIMEN Ordering Facility: [facility] Address: [address] [place] [address] Performed By: #### 5 7021-8 #### [facility] CLIA [id number] [address] [place] [address] [place] Differential cell count method Nom (Bld) Auto Normal [facility] Comment on above: Order Comment: Speci men Type: BLOOD SPECIMEN Ordering Facility: [facility] Address: [address] [place] [address] Performed By: #### 5 7021-8 #### [facility] CLIA [id number] [address] [place] [address] [place] Eosinophils (Bld) [#/Vol] 0.27 10*3/uL Normal <0.46 [facility] Comment on above: Order Comment: Speci men Type: BLOOD SPECIMEN Ordering Facility: [facility] Address: [address] [place] [address] Performed By: #### 5 7021-8 #### [facility] CLIA [id number] [address] [place] Eosinophils/100 WBC (Bld) 2.9 % Normal [facility] Comment on above: Order Comment: Speci men Type: BLOOD SPECIMEN Ordering Facility: [facility] Address: [address] [place] [address] Performed By: #### 5 7021-8 #### [facility] CLIA [id number] [address] [place] Erythrocyte distribution width (RBC) [Ratio] 12.9 % Normal 11.5-15.0 [facility] Comment on above: Order Comment: Speci men Type: BLOOD SPECIMEN Ordering Facility: [facility] Address: [address] [place], [place] [id number] Performed By: #### 5 7021-8 #### [facility] CLIA [id number] [address] Hematocrit (Bld) [Volume fraction] 43.7 % Normal 36.0-46.0 [facility] Comment on above: Order Comment: Speci men Type: BLOOD SPECIMEN [facility] [facility] Address: [address] [place] [address] Performed By: #### 5 7021-8 #### [facility] CLIA [id number] [address] [place] Hemoglobin (Bld) [Mass/Vol] 14.3 g/dL Normal 11.5-15.5 [facility] Comment on above: Order Comment: Speci men Type: BLOOD SPECIMEN Ordering Facility: [facility] Address: [address] [place] [address] Performed By: #### 5 7021-8 #### [facility] CLIA [id number] [address] [place] Immature granulocytes (Bld) [#/Vol] 0.04 10*3/uL Normal <0.10 [facility] Comment on above: Order Comment: Speci men Type: BLOOD SPECIMEN Ordering Facility: [facility] Address: [address] [place] [address] Performed By: #### 5 7021-8 #### [facility] CLIA [id number] [address] Immature granulocytes/100 WBC (Bld) 0.4 % Normal [facility] Comment on above: Order Comment: Speci men Type: BLOOD SPECIMEN Ordering Facility: [facility] Address: [address] [place] [address] Performed By: #### 5 7021-8 #### [facility] CLIA [id number] [address] Lymphocytes (Bld) [#/Vol] 3.54 10*3/uL Normal 1.00-4.00 [facility] Comment on above: Order Comment: Speci men Type: BLOOD SPECIMEN Ordering Facility: [facility] Address: [address] [place] [address] Performed By: #### 5 7021-8 #### [facility] CLIA [id number] [address] Lymphocytes/100 WBC (Bld) 38.6 % Normal [facility] Comment on above: Order Comment: Speci men Type: BLOOD SPECIMEN Ordering Facility: [facility] Address: [address] [place] [address] Performed By: #### 5 7021-8 #### [facility] CLIA [id number] [address] MCH (RBC) [Entitic mass] 31.4 pg Normal 26.0-34.0 [facility] Comment on above: Order Comment: Speci men Type: BLOOD SPECIMEN Ordering Facility: [facility] Address: [address] [place] [address] Performed By: #### 5 7021-8 #### [facility] CLIA [id number] [address] MCHC (RBC) [Mass/Vol] 32.7 g/dL Normal 30.5-36.0 [facility] Comment on above: Order Comment: Speci men Type: BLOOD SPECIMEN Ordering Facility: [facility] Address: [address] [place] [address] Performed By: #### 5 7021-8 #### [facility] CLIA [id number] [address] MCV (RBC) [Entitic vol] 96.0 fL Normal 80.0-100.0 [facility] Comment on above: Order Comment: Speci men Type: BLOOD SPECIMEN Ordering Facility: [facility] Address: [address] [place] [address] Performed By: #### 5 7021-8 #### [facility] CLIA [id number] [address] Monocytes (Bld) [#/Vol] 0.59 10*3/uL Normal <0.87 [facility] Comment on above: Order Comment: Speci men Type: BLOOD SPECIMEN Ordering Facility: [facility] Address: [address] [place] [address] Performed By: #### 5 7021-8 #### [facility] CLIA [id number] 1000 [place] [address] [place] Monocytes/100 WBC (Bld) 6.4 % Normal [facility] Comment on above: Order Comment: Speci men Type: BLOOD SPECIMEN Ordering Facility: [facility] Address: [address] [place] [address] Performed By: #### 5 7021-8 #### [facility] CLIA [id number] 1000 [place] [address] [place] Neutrophils (Bld) [#/Vol] 4.68 10*3/uL Normal 1.45-7.50 [facility] Comment on above: Order Comment: Speci men Type: BLOOD SPECIMEN Ordering Facility: [facility] Address: [address] [place] [address] Performed By: #### 5 7021-8 #### [facility] CLIA [id number] 1000 [place] [address] [place] Neutrophils/100 WBC (Bld) 51.2 % Normal [facility] Comment on above: Order Comment: Speci men Type: BLOOD SPECIMEN Ordering Facility: [facility] Address: [address] [place] [address] Performed By: #### 5 7021-8 #### [facility] CLIA [id number] [address] [place] Nucleated RBC (Bld) [#/Vol] 10*3/uL Normal <0.01 [facility] Comment on above: Order Comment: Speci men Type: BLOOD SPECIMEN Ordering Facility: [facility] Address: [address] [place] [address] Performed By: #### 5 7021-8 #### [facility] CLIA [id number] 1000 [place] [address] [place] Nucleated RBC/100 WBC (Bld) [Ratio] 0.0 /100 WBC Normal [facility] Comment on above: Order Comment: Speci men Type: BLOOD SPECIMEN Ordering Facility: [facility] Address: [address] [place] [address] Performed By: #### 5 7021-8 #### [facility] CLIA [id number] 1000 [place] [address] [place] Platelet mean volume (Bld) [Entitic vol] 9.8 fL Normal 9.0-12.7 [facility] Comment on above: Order Comment: Speci men Type: BLOOD SPECIMEN Ordering Facility: [facility] Address: [address] [place] [address] Performed By: #### 5 7021-8 #### [facility] CLIA [id number] 1000 [place] [address] [place] Platelets (Bld) [#/Vol] 255 10*3/uL Normal 150-400 [facility] Comment on above: Order Comment: Speci men Type: BLOOD SPECIMEN Ordering Facility: [facility] Address: [address] [place] [address] Performed By: #### 5 7021-8 #### [facility] CLIA [id number] [address] [place] [address] [place] RBC (Bld) [#/Vol] 4.55 10*6/uL Normal 3.90-5.20 [facility] Comment on above: Order Comment: Speci men Type: BLOOD SPECIMEN Ordering Facility: [facility] Address: [address] [place] [address] Performed By: #### 5 7021-8 #### [facility] CLIA [id number] [address] [place] [address] [place] WBC (Bld) [#/Vol] 9.17 10*3/uL Normal 3.70-11.00 [facility] Comment on above: Order Comment: Speci men Type: BLOOD SPECIMEN Ordering Facility: [facility] Address: [address] [place] [address] Performed By: #### 5 7021-8 #### [facility] CLIA [id number] [address] [place] Comprehensive metabolic 2000 panelon 12-23-2024 Albumin [Mass/Vol] 3.7 g/dL Low 3.9-4.9 [facility] Comment on above: Order Comment: Speci men Type: BLOOD SPECIMEN Ordering Facility: [facility] Address: [address] [place] [address] Performed By: #### 2 4323-8, 3040-3 #### [facility] CLIA [id number] [address] [place] [address] [place] [facility] ALP [Catalytic activity/Vol] 86 U/L Normal 34-123 [facility] Comment on above: Order Comment: Speci men Type: BLOOD SPECIMEN Ordering Facility: [facility] Address: [address] [place] [address] Performed By: #### 2 4323-8, 0-3 #### [facility] CLIA [id number] [address] [place] ALT [Catalytic activity/Vol] 9 U/L Normal 7-38 [facility] Comment on above: Order Comment: Speci men Type: BLOOD SPECIMEN Ordering Facility: [facility] Address: [address] [place] [address] Performed By: #### 2 4323-8, 0-3 #### [facility] CLIA [id number] [address] [place] [address] [place] Anion gap [Moles/Vol] 8 mmol/L Normal 8-15 [facility] Comment on above: Order Comment: Speci men Type: BLOOD SPECIMEN Ordering Facility: [facility] Address: [address] [place] [address] Performed By: #### 2 4323-8, 0-3 #### [facility] CLIA [id number] [address] [place] AST [Catalytic activity/Vol] 12 U/L Low 13-35 [facility] Comment on above: Order Comment: Speci men Type: BLOOD SPECIMEN Ordering Facility: [facility] Address: [address] [place] [address] Performed By: #### 2 4323-8, 3040-3 #### [facility] CLIA [id number] [address] [place] [address] [place] Bilirubin [Mass/Vol] 0.7 mg/dL Normal 0.2-1.3 [facility] Comment on above: Order Comment: Speci men Type: BLOOD SPECIMEN Ordering Facility: [facility] Address: [address] [place] [address] Performed By: #### 2 4323-8, 3040-3 #### [facility] CLIA [id number] [address] [place] [address] [place] Calcium [Mass/Vol] 9.7 mg/dL Normal 8.5-10.2 [facility] Comment on above: Order Comment: Speci men Type: BLOOD SPECIMEN Ordering Facility: [facility] Address: [address] [place] [address] Performed By: #### 2 4323-8, 0-3 #### [facility] CLIA [id number] [address] [place] [address] [place] Chloride [Moles/Vol] 103 mmol/L Normal 98-107 [facility] Comment on above: Order Comment: Speci men Type: BLOOD SPECIMEN Ordering Facility: [facility] Address: [address] [place] [address] Performed By: #### 2 4323-8, 0-3 #### [facility] CLIA [id number] [address] [place] [address] [place] CO2 [Moles/Vol] 30 mmol/L Normal 22-30 [facility] Comment on above: Order Comment: Speci men Type: BLOOD SPECIMEN Ordering Facility: [facility] Address: [address] [place] [address] Performed By: #### 2 4323-8, 0-3 #### [facility] CLIA [id number] [address] [place] [address] [place] Creatinine [Mass/Vol] 0.47 mg/dL Low 0.58-0.96 [facility] Comment on above: Order Comment: Speci men Type: BLOOD SPECIMEN Ordering Facility: [facility] Address: [address] [place] [address] Performed By: #### 2 4323-8, 3040-3 #### [facility] CLIA [id number] [address] [place] [address] [place] Creatinine and Glomerular filtration rate.predicted panel (S/P/Bld) 91 mL/min/1.73m??? Normal >=60 [facility] Comment on above: Order Comment: Jose garcia Type: BLOOD SPECIMEN Ordering Facility: [facility] Address: [address] [place] [address] Result Comment: Lisa mated Glomerular Filtration Rate (eGFR) is calculated using the 2020 CKD-EPI creatinine equation. This equation utilizes serum creatinine, sex, and age as parameters. The creatinine assay has traceable calibration to isotope dilution-mass spectrometry. Refer to KDIGO guidelines for clinical interpretation. In patients with unstable renal function, e.g. those with acute kidney injury, the eGFR may not accurately reflect actual GFR. Performed By: #### 2 4323-8, 3040-3 #### [facility] CLIA [id number] [address] [place] [address] [place] Glucose [Mass/Vol] 161 mg/dL High 74-99 [facility] Comment on above: Order Comment: Jose garcia Type: BLOOD SPECIMEN Ordering Facility: [facility] Address: [address] [place] [address] Result Comment: The [place] Diabetes Association (ADA) provides guidance for cutoff values for fasting glucose and random glucose. The ADA defines fasting as no caloric intake for at least 8 hours. Fasting plasma glucose results between 100 to 125 mg/dL indicate increased risk for diabetes (prediabetes). Fasting plasma glucose results greater than or equal to 126 mg/dL meet the criteria for diagnosis of diabetes. In the absence of unequivocal hyperglycemia, results should be confirmed by repeat testing. In a patient with classic symptoms of hyperglycemia or hyperglycemic crisis, random plasma glucose results greater than or equal to 200 mg/dL meet the criteria for diagnosis of diabetes. Reference: Standards of Medical Care in Diabetes 2016, [place] [employer]. Diabetes Care. 2016.39(Suppl 1). Performed By: #### 2 4323-8, 3040-3 #### [facility] CLIA [id number] [address] [place] [id number] [place] Potassium [Moles/Vol] 4.5 mmol/L Normal 3.7-5.1 [facility] Comment on above: Order Comment: Jose garcia Type: BLOOD SPECIMEN Ordering Facility: [facility] Address: [address] [place] [address] Performed By: #### 2 4323-8, 3040-3 #### [facility] CLIA [id number] [address] [place] [address] [place] Protein [Mass/Vol] 6.5 g/dL Normal 6.3-8.0 [facility] Comment on above: Order Comment: Speci men Type: BLOOD SPECIMEN Ordering Facility: [facility] Address: [address] [place] [address] Performed By: #### 2 4323-8, 3040-3 #### [facility] CLIA [id number] [address] [place] [address] [place] Sodium [Moles/Vol] 141 mmol/L Normal 136-144 [facility] Comment on above: Order Comment: Speci men Type: BLOOD SPECIMEN Ordering Facility: [facility] Address: [address] [place] [address] Performed By: #### 2 4323-8, 3040-3 #### [facility] CLIA [id number] [address] [place] [address] [place] Urea nitrogen [Mass/Vol] 15 mg/dL Normal 7-21 [facility] Comment on above: Order Comment: Speci men Type: BLOOD SPECIMEN Ordering Facility: [facility] Address: [address] [place] [address] Performed By: #### 2 4323-8, 3040-3 #### [facility] CLIA [id number] [address] [place] [address] [place] Albumin [Mass/Vol] 3.7 g/dL Low 3.9-4.9 [facility] Comment on above: Order Comment: Speci men Type: BLOOD SPECIMEN Ordering Facility: [facility] Address: [address] [place] [address] Performed By: #### 1 9123-9, 54378-6 #### [facility] CLIA [id number] [address] [place] [address] [place] ALP [Catalytic activity/Vol] Normal [facility] Comment on above: Order Comment: Speci men Type: BLOOD SPECIMEN Ordering Facility: [facility] Address: [address] [place] [address] Result Comment: Unab le to assay due to interference from hemolysis. Suggest reorder as clinically indicated. Performed By: #### 1 9122-9, 41618-7 #### [facility] CLIA [id number] [address] ALT [Catalytic activity/Vol] Normal [facility] Comment on above: Order Comment: Speci men Type: BLOOD SPECIMEN Ordering Facility: [facility] Address: [address] [place] [address] Result Comment: Unab le to assay due to interference from hemolysis. Suggest reorder as clinically indicated. Performed By: #### 1 9, 37844-7 #### [facility] CLIA [id number] [address] [place] Anion gap [Moles/Vol] Normal [facility] Comment on above: Order Comment: Speci men Type: BLOOD SPECIMEN Ordering Facility: [facility] Address: [address] [place] [address] Result Comment: Unab le to calculate due to hemolysis. Performed By: #### 1 9, 27405-3 #### [facility] CLIA [id number] [address] [place] AST [Catalytic activity/Vol] Normal [facility] Comment on above: Order Comment: Speci men Type: BLOOD SPECIMEN Ordering Facility: [facility] Address: [address] [place] [address] Result Comment: Unab le to assay due to interference from hemolysis. Suggest reorder as clinically indicated. Performed By: #### 1 9, 92703-3 #### [facility] CLIA [id number] [address] [place] Bilirubin [Mass/Vol] 0.6 mg/dL Normal 0.2-1.3 [facility] Comment on above: Order Comment: Speci men Type: BLOOD SPECIMEN Ordering Facility: [facility] Address: [address] [place] [address] Performed By: #### 1 9122-9, 82274-2 #### [facility] CLIA [id number] [address] [place] [address] [place] Calcium [Mass/Vol] 9.8 mg/dL Normal 8.5-10.2 [facility] Comment on above: Order Comment: Speci men Type: BLOOD SPECIMEN Ordering Facility: [facility] Address: [address] [place] [address] Performed By: #### 1 9123-9, 52231-9 #### [facility] CLIA [id number] [address] [place] Chloride [Moles/Vol] 100 mmol/L Normal 98-107 [facility] Comment on above: Order Comment: Speci men Type: BLOOD SPECIMEN Ordering Facility: [facility] Address: [address] [place] [address] Performed By: #### 1 9123-9, #### [facility] CLIA [id number] [address] [place] CO2 [Moles/Vol] Normal [facility] Comment on above: Order Comment: Speci men Type: BLOOD SPECIMEN Ordering Facility: [facility] Address: [address] [place] [address] Result Comment: Unab le to assay due to interference from hemolysis. Suggest reorder as clinically indicated. Performed By: #### 1 9123-9, 25546-7 #### [facility] CLIA [id number] [address] [place] Creatinine [Mass/Vol] 0.35 mg/dL Low 0.58-0.96 [facility] Comment on above: Order Comment: Speci men Type: BLOOD SPECIMEN Ordering Facility: [facility] Address: [address] [place] [address] Performed By: #### 1 9123-9, #### [facility] CLIA [id number] [address] Creatinine and Glomerular filtration rate.predicted panel (S/P/Bld) 98 mL/min/1.73m??? Normal >=60 [facility] Comment on above: Order Comment: Speci men Type: BLOOD SPECIMEN Ordering Facility: [facility] Address: [address] [place] [address] Result Comment: Lisa mated Glomerular Filtration Rate (eGFR) is calculated using the 2020 CKD-EPI creatinine equation. This equation utilizes serum creatinine, sex, and age as parameters. The creatinine assay has traceable calibration to isotope dilution-mass spectrometry. Refer to KDIGO guidelines for clinical interpretation. In patients with unstable renal function, e.g. those with acute kidney injury, the eGFR may not accurately reflect actual GFR. Performed By: #### 1 9123-9, 39022-8 #### [facility] CLIA [id number] [address] [place] [address] [place] Glucose [Mass/Vol] 150 mg/dL High [address] [place] [address] Comment on above: Order Comment: Jose garcia Type: BLOOD SPECIMEN Ordering Facility: [facility] Address: [address] [place] [address] Result Comment: The [place] Diabetes Association (ADA) provides guidance for cutoff values for fasting glucose and random glucose. The ADA defines fasting as no caloric intake for at least 8 hours. Fasting plasma glucose results between 100 to 125 mg/dL indicate increased risk for diabetes (prediabetes). Fasting plasma glucose results greater than or equal to 126 mg/dL meet the criteria for diagnosis of diabetes. In the absence of unequivocal hyperglycemia, results should be confirmed by repeat testing. In a patient with classic symptoms of hyperglycemia or hyperglycemic crisis, random plasma glucose results greater than or equal to 200 mg/dL meet the criteria for diagnosis of diabetes. Reference: Standards of Medical Care in Diabetes 2016, [place] [employer]. Diabetes Care. 2016.39(Suppl 1). Performed By: #### 1 9123-9, 84528-6 #### [facility] CLIA [id number] [address] [place] [id number] [place] Potassium [Moles/Vol] Normal [facility] Comment on above: Order Comment: Jose garcia Type: BLOOD SPECIMEN Ordering Facility: [facility] Address: [address] [place] [address] Result Comment: Unab le to assay due to interference from hemolysis. Suggest reorder as clinically indicated. Performed By: #### 1 9123-9, 38446-2 #### [facility] CLIA [id number] [address] [place] [address] [place] Protein [Mass/Vol] Normal [facility] Comment on above: Order Comment: Speci men Type: BLOOD SPECIMEN Ordering Facility: [facility] Address: [address] [place] [address] Result Comment: Unab le to assay due to interference from hemolysis. Suggest reorder as clinically indicated. Performed By: #### 1 9123-9, 72193-2 #### [facility] CLIA [id number] [address] [place] [address] [place] Sodium [Moles/Vol] 135 mmol/L Low 136-144 [facility] Comment on above: Order Comment: Speci men Type: BLOOD SPECIMEN Ordering Facility: [facility] Address: [address] [place] [address] Performed By: #### 1 9123-9, 29818-7 #### [facility] CLIA [id number] [address] [place] Urea nitrogen [Mass/Vol] 16 mg/dL Normal 03-01 [facility] Comment on above: Order Comment: Speci men Type: BLOOD SPECIMEN Ordering Facility: [facility] Address: [address] [place] [address] Performed By: #### 1 9123-9, 20656-4 #### [facility] CLIA [id number] [address] [place] ED NOTEon 12-23-2024 ED NOTE HNO ID: [id number] Author: THERESE ZAVALA RN Service: Nursing Author Type: Registered Nurse Type: ED Notes Filed: 12/23/2024 12:59 Note Text: Report given to MMT transport at bedside. [facility] ED NOTE HNO ID: [id number] Author: THERESE ZAVALA RN Service: Nursing Author Type: Registered Nurse Type: ED Notes Filed: 12/23/2024 12:21 Note Text: Report called to nursing facility by this RN. [facility] ED NOTE HNO ID: [id number] Author: MILEY KABA RN Service: ? Author Type: Registered Nurse Type: ED Notes Filed: 12/23/2024 06:17 Note Text: Pt incontinent of large amount of urine. Pt cleaned up and external catheter placed. [facility] ED PROGRESS NOTE (PROVIDER)o n 12-23-2024 ED PROGRESS NOTE (PROVIDER) HNO ID: [id number] Author: THERESE DINERO DO Service: Emergency Medicine Author Type: Physician Type: ED PROGRESS NOTE (PROVIDER) Filed: 12/23/2024 12:38 Note Text: ED CONTINUATION OF CARE NOTE Code Status: Full Code Assumed care from: Dr. Nevarez Presentation / Findings / Interventions / Plan / Items to Follow Up: On reevaluation patient feeling well, remaining workup unremarkable, will DC with follow-up ED Course as of 12/23/24 0837 Others' Documentation Wed December 23, 2024 0627 CBC unremarkable [MB] ED Course User Index [MB] Cameron Nevarez DO Clinical Impressions as of 12/23/24 0837 Uncontrolled type 2 diabetes mellitus with hyperglycemia (HCC) Essential hypertension Weakness of both lower extremities Medical Decision Making SIGNATURE: Therese Dinero DO PATIENT NAME: Raudel Ahumada DATE: December 23, 2024 TIME: 8:37 AM PAGER/CONTACT #: [facility] ED PROV NOTEon 12-23-2024 ED PROV NOTE HNO ID: [id number] Author: CAMERON NEVAREZ DO Service: Emergency Medicine Author Type: Physician Type: ED Provider Notes Filed: 12/23/2024 06:17 Note Text: ED Provider Note Patient Name: Raudel Ahumada : 1935 SERVICE DATE: 12/23/24 History Patient presents with: Altered Level Of Consciousness: Pt BIB EMS from [facility]. Per EMS the long-term staff was unable to wake her this morning. Pt AOx1-2 which is baseline per EMS. Patient is an 89-year-old female past medical history of diabetes, hypertension, hypothyroidism, obesity presenting emergency department today from her nursing facility for concerns of an altered level of consciousness. Nursing staff reports that this morning they called to wake up patient. She awoke to a sternal rub however appeared foggy, her eyes were "not focusing". Patient is normally AxO 1-2 and was ANO 0 for nursing staff. They were concerned and called EMS. EMS reports patient has been alert, AxO 2. Patient reports that earlier today nursing staff kept trying to wake her and she just wanted to sleep. Patient notes some epigastric abdominal pain, states she always has this pain. She denies any headache, vision changes, numbness or weakness in her arms or legs, chest pain, shortness of breath, cough, nausea or vomiting, urinary symptoms, changes in stool. 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 FAMILY HISTORY Problem Relation Age of Onset - No Known Problems Mother Social History Tobacco Use - Smoking status: Never - Smokeless tobacco: Never Vaping Use - Vaping status: Never Used Substance and Sexual Activity - Alcohol use: Not Currently - Drug use: Never - Sexual activity: Not on file ALLERGIES Allergen Reactions - Tape [Adhesive Tape* Unknown Review of Systems Constitutional: Negative for appetite change, fatigue and fever. HENT: Negative for congestion. Eyes: Negative for visual disturbance. Respiratory: Negative for cough and shortness of breath. Cardiovascular: Negative for chest pain. Gastrointestinal: Positive for abdominal pain (chronic). Negative for constipation, diarrhea, nausea and vomiting. Genitourinary: Negative for difficulty urinating, dysuria and hematuria. Musculoskeletal: Negative for arthralgias and myalgias. Skin: Negative for rash. Neurological: Negative for dizziness, syncope, facial asymmetry, speech difficulty, weakness, light-headedness, numbness and headaches. All other systems reviewed and are negative. Physical Exam Vitals [12/23/24 0548] BP Pulse Temp Temp src Resp SpO2 Weight Height 190/93 (!) 52 36.4 ?C (97.5 ?F) Oral 18 (!) 93 % 122.8 kg (270 lb 11.6 oz) -- Physical Exam Vitals and nursing note reviewed. Constitutional: General: She is not in acute distress. Appearance: She is not ill-appearing, toxic-appearing or diaphoretic. HENT: Head: Normocephalic and atraumatic. Mouth/Throat: Mouth: Mucous membranes are moist. Pharynx: Oropharynx is clear. Eyes: Extraocular Movements: Extraocular movements intact. Pupils: Pupils are equal, round, and reactive to light. Cardiovascular: Rate and Rhythm: Normal rate and regular rhythm. Heart sounds: Normal heart sounds. No murmur heard. No friction rub. No gallop. Pulmonary: Effort: Pulmonary effort is normal. Breath sounds: Normal breath sounds. Abdominal: General: Bowel sounds are normal. Palpations: Abdomen is soft. Comments: Epigastric tenderness without guarding. Musculoskeletal: General: Normal range of motion. Cervical back: Normal range of motion and neck supple. Skin: General: Skin is warm and dry. Capillary Refill: Capillary refill takes less than 2 seconds. Coloration: Skin is not cyanotic. Findings: No erythema or rash. Neurological: Mental Status: She is alert. Mental status is at baseline. GCS: GCS eye subscore is 4. GCS verbal subscore is 5. GCS motor subscore is 6. Comments: Patient alert and oriented to person, place, year. Speech is clear. Answers questions and follows commands appropriately. Facial movements are normal. Facial sensation intact. PERRL. EOMI without nystagmus. Visual acuna intact. Tongue protrudes midline without fasciculations. 5/5 strength to shoulder shrug against resistance. 5/5 strength and normal sensation in bilateral upper and lower extremities. Diagnostic Testing ED Labs Ordered and Reviewed - No data to display Procedures ED Course / Clinical Impression ED Course as of 12/23/24 0628 Cameron Nevarez's Documentation SatDecember 23, 2024 0627 CBC unremarkable Clinical Impressions as of 12/23/24 0628 Uncontrolled type 2 diabetes mellitus with hyperglycemia (HCC) Essential hypertension (more content not included)... Normal [facility] Lipase SerPl-cCncon 12-24-19 Lipase [Catalytic activity/Vol] 10 U/L Low 16-61 [facility] Comment on above: Order Comment: Jose garcia Type: BLOOD SPECIMENOrdering Facility: [facility] Address: [address] [place], [place] [id number] Performed By: #### 2 4323-8, 3040-3 ####[facility] [id number] [place] [id number] [place] Magnesium SerPl-mCncon 12-23 Magnesium [Mass/Vol] 2.0 mg/dL Normal 1.7-2.3 [facility] Comment on above: Order Comment: Speci men Type: BLOOD SPECIMEN Ordering Facility: [facility] Address: [address] [place] [address] Performed By: #### 1 9123-9, 21518-0 #### [facility] CLIA [id number] [address] Urinalysis complete panel (U )on 12-23-2024 Bacteria LM.HPF (Urine sed) [#/Area] Rare Abnormal None Seen [facility] Comment on above: Order Comment: Speci men Type: URINE SPECIMEN [facility]ing Facility: [facility] Address: [address] [place] [address] Performed By: #### 2 4356-8 #### [facility] CLIA [id number] [address] Bilirubin Ql (U) Negative Normal Negative [facility] Comment on above: Order Comment: Speci men Type: URINE SPECIMEN [facility]ing Facility: [facility] Address: [address] [place] [address] Performed By: #### 2 4356-8 #### [facility] CLIA [id number] [address] Clarity (Unsp spec) Clear Normal Clear [facility] Comment on above: Order Comment: Speci men Type: URINE SPECIMEN [facility] Facility: [facility] Address: [address] [place] [address] Performed By: #### 2 4356-8 #### [facility] CLIA [id number] [address] Color (U) Yellow Normal Yellow [facility] Comment on above: Order Comment: Speci men Type: URINE SPECIMEN [facility]ing [facility]: [facility] Address: [address] [place] [address] Performed By: #### 2 4356-8 #### [facility] CLIA [id number] [address] Epithelial cells LM.HPF (Urine sed) [#/Area] Few Normal [facility] Comment on above: Order Comment: Speci men Type: URINE SPECIMEN [facility] Address: [address] [place] [address] Performed By: #### 2 4356-8 #### [facility] CLIA [id number] [address] Glucose Test strip (U) [Mass/Vol] Negative Normal Negative [facility] Comment on above: Order Comment: Speci men Type: URINE SPECIMEN [facility]ing Facility: [facility] Address: [facility] [place] [address] Performed By: #### 2 4356-8 #### [facility] CLIA [id number] [address] [place] Hemoglobin Ql (U) Negative Normal Negative [facility] Comment on above: Order Comment: Speci men Type: URINE SPECIMEN [facility]: [facility] Address: [address] [place] [address] Performed By: #### 2 4356-8 #### [facility] CLIA [id number] [address] Ketones Ql (U) Negative Normal Negative [facility] Comment on above: Order Comment: Speci men Type: URINE SPECIMEN [facility] Address: [address] [place] [address] Performed By: #### 2 4356-8 #### [facility] CLIA [id number] [address] Leukocyte esterase Test strip Ql (U) Negative Normal Negative [facility] Comment on above: Order Comment: Speci men Type: URINE SPECIMEN [facility] Address: [address] [place] [address] Performed By: #### 2 4356-8 #### [facility] CLIA [id number] [address] [place] Nitrite Ql (U) Negative Normal Negative [facility] Comment on above: Order Comment: Speci men Type: URINE SPECIMEN [facility] Address: [address] [place] [address] Performed By: #### 2 4356-8 #### [facility] CLIA [id number] [address] [place] pH (U) 7.0 [pH] Normal 5.0-8.0 [facility] Comment on above: Order Comment: Speci men Type: URINE SPECIMEN [facility] Address: [address] [place] [address] Performed By: #### 2 4356-8 #### [facility] CLIA [id number] [address] Protein (U) [Mass/Vol] Negative Normal Negative [facility] Comment on above: Order Comment: Speci men Type: URINE SPECIMEN [facility] Address: [address] [place] [address] Performed By: #### 2 4356-8 #### [facility] CLIA [id number] [address] RBC LM.HPF (Urine sed) [#/Area] 0-3 /HPF Normal 0-3 /HPF [facility] Comment on above: Order Comment: Speci men Type: URINE SPECIMEN [facility] Address: [address] [place] [address] Performed By: #### 2 4356-8 #### [facility] CLIA [id number] [address] Specific gravity (U) [Rel density] 1.015 Normal 1.005-1.030 [facility] Comment on above: Order Comment: Speci men Type: URINE SPECIMEN [facility] Address: [address] [place] [address] Performed By: #### 2 4356-8 #### [facility] CLIA [id number] [address] Urobilinogen Ql (U) 0.2 EU/dL Normal 0.2-1.0 EU/dL [facility] Comment on above: Order Comment: Speci men Type: URINE SPECIMEN [facility] Address: [address] [place] [address] Performed By: #### 2 4356-8 #### [facility] CLIA [id number] [address] WBC LM.HPF (Urine sed) [#/Area] 0-5 /HPF Normal 0-5 /HPF [facility] Comment on above: Order Comment: Speci men Type: URINE SPECIMEN [facility] Address: [address] [place] [id number] Performed By: #### 2 4356-8 #### [facility] CLIA [id number] [address] [place] [address] [place] Basophil percentageOrdered B y: Adelfo Dhaliwal on 11-11-2023 Cholesterol [Mass/Vol] 224 mg/dL <200 [facility] Comment on above: <200 mg/dL Desirable 200-240 mg/dL Borderline >240 mg/dL High Risk Triglyceride [Mass/Vol] 194 mg/dL <199 [facility] Comment on above: The drugs N-Acetylcy steine and Metamizole may falsely depress this assay.Serum Triglycerides Reference Interval Normal <150 mg/dL Borderline high 150 - 199 mg/dL High 200 - 499 mg/dL Very High > or = 500 mg/dL Laboratory - Chemistry and C hemistry - challengeOrdered By: Adelfo Dhaliwal on 11-11-2023 Cholesterol in HDL [Mass/Vol] 50 mg/dL >40 [facility] Comment on above: The drugs N-Acetylcy steine and Metamizole may falsely depress this assay. Reference Range HDL <40 mg/dL Low HDL Cholesterol HDL >or= 60 mg/dL High HDL Cholesterol Cholesterol in LDL [Mass/Vol] 135 mg/dL 0-130 [facility] No Panel InformationOrdered By: Adelfo Dhaliwal on 11-11-2023 VLDL Cholesterol 39 mg/dL 5-40 [facility] FLUAV H1+H3+FLUBV RNA CINTHIA+pr obe Ql (Unsp spec)Ordered By: Adelfo Dhaliwal on 11-03-2023 Influenza Types A & B (PCR) Influenzae A [facility] Basophil percentageOrdered B y: Adelfo Dhaliwal on 10-21-2023 Chloride [Moles/Vol] 107 mmol/L 98-107 [facility] Glucose [Mass/Vol] 133 mg/dL 74-106 [facility] Comment on above: Fasting Glucose resu lt greater than or equal to 126 mg/dL suggests DIABETES MELLITUS per A.D.A. criteria. Hemoglobin (Bld) [Mass/Vol] 14.4 g/dL 12.0-15.0 [facility] Potassium [Moles/Vol] 4.0 mmol/L 3.5-5.1 [facility] Sodium [Moles/Vol] 140 mmol/L 136-145 [facility] WBC (Bld) [#/Vol] 8.4 10*3/uL 4.4-11.0 [facility] Bilirubin Test strip Ql (U)O rdered By: Adelfo Dhaliwal on 10-21-2023 Bilirubin Ql (U) Negative Negative [facility] Culture, urineOrdered By: Danielle Dhaliwal on 10-21-2023 Bacteria identified Cx Nom (U) Mixed Gram Pos & Gram Neg Org [facility] Determination of erythrocyte mean corpuscular volume (MCV)Ordered By: Adelfo Dhaliwal on 10-21-2023 MCV (RBC) [Entitic vol] 95.3 fL 81-99 [facility] Erythrocyte distribution wid th ratioOrdered By: Adelfo Dhaliwal on 10-21-2023 Erythrocyte distribution width (RBC) [Ratio] 12.6 % 11.6-14.6 [facility] Erythrocyte distribution wid th standard deviationOrdered By: Adelfo Dhaliwal on 10-21-2023 Erythrocyte distribution width (RBC) [Entitic vol] 43.8 fL 35.1-43.9 [facility] Hematocrit Auto (Bld) [Volum e fraction]Ordered By: Adelfo Dhaliwal on 10-21-2023 Hematocrit (Bld) [Volume fraction] 44.7 % 37-47 [facility] Ketones Test strip Ql (U)Ord ered By: Adelfo Dhaliwal on 10-21-2023 Ketones Ql (U) Negative Negative [facility] Laboratory - Chemistry and C hemistry - challengeOrdered By: Adelfo Dhaliwal on 10-21-2023 CO2 [Moles/Vol] 27.0 mmol/L 21.0-32.0 [facility] Urea nitrogen/Creatinine [Mass ratio] 22.0 mg/mg 10-20 [facility] Laboratory - Hematology and Cell countsOrdered By: Adelfo Dhaliwal on 10-21-2023 MCH (RBC) [Entitic mass] 30.7 pg 27.0-32.0 [facility] MCHC (RBC) [Mass/Vol] 32.2 g/dL 32-36 [facility] Platelet mean volume (Bld) [Entitic vol] 9.9 fL 6.2-12.0 [facility] Platelets (Bld) [#/Vol] 259 10*3/uL 150-450 [facility] Nitrite Test strip Ql (U)Ord ered By: Adelfo Dhaliwal on 10-21-2023 Nitrite Ql (U) Negative Negative [facility] No Panel InformationOrdered By: Adelfo Dhaliwal on 10-21-2023 Estimated GFR (MDRD) Amer 149 mL/min >60 [facility] Comment on above: GFR Calc Estimated GFR (MDRD) Non-Af Amer 124 mL/min >60 [facility] Comment on above: Non- GFR Calc Protein Test strip Ql (U)Ord ered By: Adelfo Dhaliwal on 10-21-2023 Protein Ql (U) Negative Negative [facility] RBC Auto (Bld) [#/Vol]Ordere d By: Adelfo Dhaliwal on 10-21-2023 RBC (Bld) [#/Vol] 4.69 10*6/uL 4.2-5.4 [facility] Serum or plasma calcium ivette urement (mass/volume)Ordered By: Adelfo Dhaliwal on 10-21-2023 Calcium [Mass/Vol] 9.7 mg/dL 8.5-10.1 [facility] Serum or plasma creatinine m easurement (mass/volume)Ordered By: Adelfo Dhaliwal on 10-21-2023 Creatinine [Mass/Vol] 0.50 mg/dL 0.55-1.02 [facility] Comment on above: The validity of the calculated GFR & GFRAA in patients over 70 years has not been determined. Clinical correlation is essential. Serum or plasma urea nitroge n measurement (mass/volume)Ordered By: Adelfo Dhaliwal on 10-21-2023 Urea nitrogen [Mass/Vol] 11 mg/dL 7-18 [facility] Thin prep Papanicolaou smear with manual screeningOrdered By: Adelfo Dhaliwal on 10-21-2023 Thin prep Papanicolaou smear with manual screening 6 5-15 [facility] Urine blood detectionOrdered By: Adelfo Dhaliwal on 10-21-2023 RBC Ql (U) Negative Negative [facility] Urine clarityOrdered By: Paul Dhaliwal on 10-21-2023 Clarity (U) Sl. Cloudy Clear [facility] Urine color determinationOrd ered By: Adelfo Dhaliwal on 10-21-2023 Color (U) Yellow Yellow [facility] Urine glucose detectionOrder ed By: Adelfo Dhaliwal on 10-21-2023 Glucose Ql (U) Normal mg/dl Normal [facility] Urine leukocyte esterase det ection by dipstickOrdered By: Adelfo Dhaliwal on 10-21-2023 Leukocyte esterase Test strip Ql (U) 25 /ul Negative [facility] Urine pHOrdered By: Adelfo ortiz on 10-21-2023 pH (U) 7.0 [pH] 5.0 - 8.0 [facility] Urine specific gravity measu rementOrdered By: Adelfo Dhaliwal on 10-21-2023 Specific gravity (U) [Rel density] 1.010 1.002-1.030 [facility] Urine urobilinogen measureme ntOrdered By: Adelfo Dhaliwal on 10-21-2023 Urobilinogen Ql (U) Normal mg/dl Normal [facility] Bilirubin Test strip Ql (U)O rdered By: Adelfo Dhaliwal on 07-15-2023 Bilirubin Ql (U) Negative Negative [facility] Culture, urineOrdered By: Danielle Dhaliwal on 07-15-2023 Bacteria identified Cx Nom (U) Culture exhibits no growth. [facility] Bacteria identified Cx Nom (U) Culture exhibits no growth. [facility] Ketones Test strip Ql (U)Ord ered By: Adelfo Dhaliwal on 07-15-2023 Ketones Ql (U) Negative Negative [facility] Nitrite Test strip Ql (U)Ord ered By: Adelfo Dhaliwal on 07-15-2023 Nitrite Ql (U) Negative Negative [facility] Protein Test strip Ql (U)Ord ered By: Adelfo Dhaliwal on 07-15-2023 Protein Ql (U) 30 mg/dl Negative [facility] Urine blood detectionOrdered By: Adelfo Dhaliwal on 07-15-2023 RBC Ql (U) 50 /ul Negative [facility] Urine clarityOrdered By: Paul Dhaliwal on 07-15-2023 Clarity (U) Sl. Cloudy Clear [facility] Urine color determinationOrd ered By: Adelfo Dhaliwal on 07-15-2023 Color (U) Yellow Yellow [facility] Urine glucose detectionOrder ed By: Adelfo Dhaliwal on 07-15-2023 Glucose Ql (U) Normal mg/dl Normal [facility] Urine leukocyte esterase det ection by dipstickOrdered By: Adelfo Dhaliwal on 07-15-2023 Leukocyte esterase Test strip Ql (U) Negative Negative [facility] Urine pHOrdered By: Adelfo ortiz on 07-15-2023 pH (U) 5.0 [pH] 5.0 - 8.0 [facility] Urine specific gravity measu rementOrdered By: Adelfo Dhaliwal on 07-15-2023 Specific gravity (U) [Rel density] 1.025 1.002-1.030 [facility] Urobilinogen Auto test strip Ql (U)Ordered By: Adelfo Dhaliwal on 07-15-2023 Urobilinogen Ql (U) Normal mg/dl Normal [facility] Basophil percentageOrdered B y: Adeflo Dhaliwal on 07-12-2023 Cholesterol [Mass/Vol] 124 mg/dL <200 [facility] Comment on above: <200 mg/dL Desirable 200-240 mg/dL Borderline >240 mg/dL High Risk Triglyceride [Mass/Vol] 156 mg/dL <199 [facility] Comment on above: The drugs N-Acetylcy steine and Metamizole may falsely depress this assay.Serum Triglycerides Reference Interval Normal <150 mg/dL Borderline high 150 - 199 mg/dL High 200 - 499 mg/dL Very High > or = 500 mg/dL Laboratory - Chemistry and C hemistry - challengeOrdered By: Adelfo Dhaliwal on 07-12-2023 T4 [Mass/Vol] 10.3 ug/dL 4.8-13.9 [facility] No Panel InformationOrdered By: Adelfo Dhaliwal on 07-12-2023 Thyroid Stimulating Hormone (TSH) 0.98 uIU/mL 0.358-3.74 [facility] Total Triiodothyronine 0.84 ng/mL 0.6-1.81 [facility] Vitamin D 25-Hydroxy 61.9 ng/mL [facility] Comment on above: Vitamin D 25(OH) Sta tus Range Deficiency <20 ng/mL (50nmol/L) Insufficiency 20 - 30 ng/mL (50 - 75 nmol/L) Sufficiency 30 - 100 ng/mL (75 - 250 nmol/L) Toxicity >100 ng/mL (>250 nmol/L) Serum or plasma cholesterol in HDL measurement (mass/volume)Ordered By: Adelfo Dhaliwal on 07-12-2023 Cholesterol in HDL [Mass/Vol] 46 mg/dL >40 [facility] Comment on above: The drugs N-Acetylcy steine and Metamizole may falsely depress this assay. Reference Range HDL <40 mg/dL Low HDL Cholesterol HDL >or= 60 mg/dL High HDL Cholesterol Serum or plasma cholesterol in VLDL measurement (mass/volume)Ordered By: Adelfo Dhaliwal on 07-12-2023 Cholesterol in VLDL [Mass/Vol] 31 mg/dL 5-40 [facility] Serum or plasma low density lipoprotein (LDL) cholesterol measurement (mass/volume)Ordered By: Adelfo Dhaliwal on 07-12-2023 Cholesterol in LDL [Mass/Vol] 47 mg/dL 0-130 [facility] Basophil percentageOrdered B y: Adelfo Dhaliwal on 06-10-2023 Chloride [Moles/Vol] 106 mmol/L 98-107 [facility] Glucose [Mass/Vol] 209 mg/dL 74-106 [facility] Comment on above: Glucose result great er than or equal to 200 mg/dLsuggests DIABETES MELLITUS per A.D.A. criteria. Potassium [Moles/Vol] 3.9 mmol/L 3.5-5.1 [facility] Sodium [Moles/Vol] 135 mmol/L 136-145 [facility] WBC (Bld) [#/Vol] 11.1 10*3/uL 4.4-11.0 [facility] Blood erythrocytes count (nu mber/volume)Ordered By: Adelfo Dhaliwal on 06-10-2023 RBC (Bld) [#/Vol] 4.52 10*6/uL 4.2-5.4 [facility] Blood hemoglobin measurement (mass/volume)Ordered By: Adelfo Dhaliwal on 06-10-2023 Hemoglobin (Bld) [Mass/Vol] 13.8 g/dL 12.0-15.0 [facility] Blood platelet mean volumeOr dered By: Adelfo Dhaliwal on 06-10-2023 Platelet mean volume (Bld) [Entitic vol] 10.1 fL 6.2-12.0 [facility] Determination of erythrocyte mean corpuscular volume (MCV)Ordered By: Adelfo Dhaliwal on 06-10-2023 MCV (RBC) [Entitic vol] 96.7 fL 81-99 [facility] Hematocrit Auto (Bld) [Volum e fraction]Ordered By: Adelfo Dhaliwal on 06-10-2023 Hematocrit (Bld) [Volume fraction] 43.7 % 37-47 [facility] Laboratory - Chemistry and C hemistry - challengeOrdered By: Adelfo Dhaliwal on 06-10-2023 CO2 [Moles/Vol] 27.0 mmol/L 21.0-32.0 [facility] Urea nitrogen/Creatinine [Mass ratio] 28.3 mg/mg 10-20 [facility] Laboratory - Hematology and Cell countsOrdered By: Adelfo Dhaliwal on 06-10-2023 Erythrocyte distribution width (RBC) [Entitic vol] 44.8 fL 35.1-43.9 [facility] Erythrocyte distribution width (RBC) [Ratio] 12.5 % 11.6-14.6 [facility] MCH (RBC) [Entitic mass] 30.5 pg 27.0-32.0 [facility] MCHC Auto (RBC) [Mass/Vol]Or dered By: Adelfo Dhaliwal on 06-10-2023 MCHC (RBC) [Mass/Vol] 31.6 g/dL 32-36 [facility] No Panel InformationOrdered By: Adelfo Dhaliwal on 06-10-2023 Estimated GFR (MDRD) Amer 152 mL/min >60 [facility] Comment on above: GFR Calc Estimated GFR (MDRD) Non-Af Amer 125 mL/min >60 [facility] Comment on above: Non- GFR Calc Platelets bldOrdered By: Paul Dhaliwal on 06-10-2023 Platelets (Bld) [#/Vol] 262 10*3/uL 150-450 [facility] Serum or plasma calcium ivette urement (mass/volume)Ordered By: Adelfo Dhaliwal on 06-10-2023 Calcium [Mass/Vol] 9.3 mg/dL 8.5-10.1 [facility] Serum or plasma creatinine m easurement (mass/volume)Ordered By: Adelfo Dhaliwal on 06-10-2023 Creatinine [Mass/Vol] 0.50 mg/dL 0.55-1.02 [facility] Comment on above: The validity of the calculated GFR & GFRAA in patients over 70 years has not been determined. Clinical correlation is essential. Serum or plasma urea nitroge n measurement (mass/volume)Ordered By: Adelfo Dhaliwal on 06-10-2023 Urea nitrogen [Mass/Vol] 14 mg/dL 7-18 [facility] Thin prep Papanicolaou smear with manual screeningOrdered By: Adelfo Dhaliwal on 06-10-2023 Thin prep Papanicolaou smear with manual screening 2 5- [facility] Whole blood hemoglobin A1c/t otal hemoglobin ratio (mass fraction)Ordered By: Adelfo Dhaliwal on 06-10-2023 HbA1c (Bld) [Mass fraction] 8.0 % 3.8-5.6 [facility] Comment on above: Normal < 5.7 % Predi abetic 5.7 - 6.4 % Diabetic >or= 6.5 % Please note range changes. Office Visiton 02-25-2023 Follow-up visit [id number] Raudel Ahumada 1935 F Date Provider Department Center 02/25/2023 [id number] [facility] None Family History Problem Relation Age of Onset Diabetes Mother Coronary artery disease Brother Stroke Mother Cancer Brother Heart disease Father Diabetes Brother Heart disease Mother Stroke Brother Heart disease Brother Family Status - Relation Status Age at Mother Brother Father Level of Service:61457 AL OFFICE/OUTPATIENT NEW LOW MDM 30-44 MINUTES Reason for Visit and Comments: Back Pain [12] - Left lower leg Normal [facility] Progress Noteon 02-25-2023 Progress Note [facility] [address] [place] [address] Dept: [phone] Dept Chief Complaint Patient presents with Back Pain Left lower leg Subjective History of Present Illness: Raudel Ahumada is a 87 y.o. female who presents today for evaluation of back pain. Patient was scheduled for chronic low back pain on her schedule. When she presented today she presented for left great toe pain and a dystrophic left great toenail as her presenting symptom and issue. Location: left Onset: about 3 years Injury: no Quality: aching, sharp, and shooting Radiation of symptoms: yes - down left lower extremity Severity: moderate Exacerbating factor(s): prolonged standing, prolonged sitting, and rising from a seated position Relieving factor(s): rest and activity modification Timing: intermittently Low back red flags: Metastatic cancer: No Recent trauma: No Bowel or bladder incontinence: No Urinary retention: No Progressive lower extremity weakness or sensory loss: No Saddle anesthesia: No Spinal surgery in the last year: No IV drug abuse: No Unexplained weight loss: No Immunosuppression: No Chronic steroid use: No Fevers, chills, nights sweats: No Unremitting/rest pain: Yes Imaging to date: X-ray June 2020 Treatment to date: PT/OT/HEP: no Ice: yes, not helpful Heat: yes, not helpful Medications: Tylenol: yes, helpful NSAIDs: no Oral steroids: no Muscle relaxants: no Nerve medications: no Targeted injections: none Assistive devices: wheelchair Prior surgery: no 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 She is a poor historian and cannot accurately update today . 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 Objective There were no vitals taken for this visit. Physical Exam: General: Alert, well appearing, no acute distress. Respiratory: Breathing comfortably on room air. No respiratory distress. Skin: Warm, dry, intact. No visible rashes or erythema overlying area of focused exam. Physical Exam Musculoskeletal: Lumbar back: Tenderness (Diffuse) present. No swelling, deformity, spasms or bony tenderness. Decreased range of motion (Unable to test as the patient is in wheelchair). Negative right straight leg raise test and negative left straight leg raise test. Left foot: Deformity (Dystrophic and deformed left great toenail, no signs of bacterial infection.) present. Comments: Strength Testing Hip Flexors (T12-L3) normal strength right, left old weakness Quad (L2-L4) normal strength right, left old weakness Tibialis Anterior (L4) normal strength right, left old weakness Extensor Hallusis Longus (L5) normal strength right, left weakness Peroneus Longus (S1) normal strength right, left old weakness Gastroc (S1) normal strength right, left weakness Sensation Testing Lateral Thigh (L1-L2) intact to light touch bilateral, no paresthesia Medial Knee (L3) intact to light touch bilateral, no paresthesia Medial Calf, Medial Foot (L4) intact to light touch bilateral, no paresthesia Lateral Calf, 1st web space (L5) intact to light touch bilateral, no paresthesia Lateral Foot (S1) intact to light touch bilateral, no paresthesia External Notes None available Labs Lab Results Component Value Date HGBA1C 6.7 (H) 05/12/2020 Lab Results Component Value Date CREATININE 0.59 05/12/2020 Imaging No imaging available for review Unable to perform lumbar x-rays today in our office due to not enough staff to assist in transfer and safe imaging. EMG/NCT N/A Procedure No procedures completed today Assessment Diagnosis Plan 1. Lumbar pain Ambulatory referral to Physical Therapy 2. Lumbar radiculitis Ambulatory referral to Physical Therapy 3. DDD (degenerative disc disease), lumbar Ambulatory referral to Physical Therapy Plan We did discuss that she will need to see a telemarketer for her left great toenail care. No significant change in her back pain for 3 years. 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 We recommended continued maintenance of her strength level and continued formal physical therapy. We will go ahead and write an order for her to get formal physical therapy at [facility] care for her chronic weakness. Follow-up with neurology for any potential care for her left hemiparesis. Follow up if symptoms worsen or fail to improve, for call our office with any questions at [phone]. Patricia Harris MD 02/25/2023 10:03 AM Please note that portions of this note may have been completed with voice recognition software. (more content not included)... Normal [facility] Basophil percentageOrdered B y: Adelfo Dhaliwal on 02-14-2023 Chloride [Moles/Vol] 108 mmol/L 98-107 [facility] Glucose [Mass/Vol] 128 mg/dL 74-106 [facility] Comment on above: Fasting Glucose resu lt greater than or equal to 126 mg/dL suggests DIABETES MELLITUS per A.D.A. criteria. Potassium [Moles/Vol] 4.0 mmol/L 3.5-5.1 [facility] Sodium [Moles/Vol] 143 mmol/L 136-145 [facility] Laboratory - Chemistry and C hemistry - challengeOrdered By: Adelfo Dhaliwal on 02-14-2023 CO2 [Moles/Vol] 29.0 mmol/L 21.0-32.0 [facility] Urea nitrogen/Creatinine [Mass ratio] 32.2 mg/mg 10-20 [facility] No Panel InformationOrdered By: Adelfo Dhaliwal on 02-14-2023 Estimated GFR (MDRD) Amer 176 mL/min >60 [facility] Comment on above: GFR Calc Estimated GFR (MDRD) Non-Af Amer 146 mL/min >60 [facility] Comment on above: Non- GFR Calc Serum or plasma calcium ivette urement (mass/volume)Ordered By: Adelfo Dhaliwal on 02-14-2023 Calcium [Mass/Vol] 9.5 mg/dL 8.5-10.1 [facility] Serum or plasma creatinine m easurement (mass/volume)Ordered By: Adelfo Dhaliwal on 02-14-2023 Creatinine [Mass/Vol] 0.44 mg/dL 0.55-1.02 [facility] Comment on above: The validity of the calculated GFR & GFRAA in patients over 70 years has not been determined. Clinical correlation is essential. Serum or plasma urea nitroge n measurement (mass/volume)Ordered By: Adelfo Dhaliwal on 02-14-2023 Urea nitrogen [Mass/Vol] 14 mg/dL 7-18 [facility] Serum or plasma uric acid me asurement (mass/volume)Ordered By: Adelfo Dhaliwal on 02-14-2023 Urate [Mass/Vol] 4.9 mg/dL 2.6-6.0 [facility] Comment on above: The drugs N-Acetylcy steine and Metamizole may falsely depress this assay. Thin prep Papanicolaou smear with manual screeningOrdered By: Adelfo Dhaliwal on 02-14-2023 Thin prep Papanicolaou smear with manual screening 6 5-15 [facility] Basophil percentageOrdered B y: Adelfo Dhaliwal on 01-16-2023 Cholesterol [Mass/Vol] 121 mg/dL <200 [facility] Comment on above: <200 mg/dL Desirable 200-240 mg/dL Borderline >240 mg/dL High Risk Triglyceride [Mass/Vol] 124 mg/dL <199 [facility] Comment on above: The drugs N-Acetylcy steine and Metamizole may falsely depress this assay.Serum Triglycerides Reference Interval Normal <150 mg/dL Borderline high 150 - 199 mg/dL High 200 - 499 mg/dL Very High > or = 500 mg/dL Laboratory - Chemistry and C hemistry - challengeOrdered By: Adelfo Dhaliwal on 01-16-2023 Magnesium [Mass/Vol] 2.1 mg/dL 1.6-2.6 [facility] Comment on above: Slight Hemolysis, Re sult may be falsely increased. No Panel InformationOrdered By: Adelfo Dhaliwal on 01-16-2023 Thyroid Stimulating Hormone (TSH) 1.03 uIU/mL 0.358-3.74 [facility] Vitamin D 25-Hydroxy 80.6 ng/mL [facility] Comment on above: Vitamin D 25(OH) Sta tus Range Deficiency <20 ng/mL (50nmol/L) Insufficiency 20 - 30 ng/mL (50 - 75 nmol/L) Sufficiency 30 - 100 ng/mL (75 - 250 nmol/L) Toxicity >100 ng/mL (>250 nmol/L) Serum or plasma cholesterol in HDL measurement (mass/volume)Ordered By: Adelfo Dhaliwal on 01-16-2023 Cholesterol in HDL [Mass/Vol] 46 mg/dL >40 [facility] Comment on above: The drugs N-Acetylcy steine and Metamizole may falsely depress this assay. Reference Range HDL <40 mg/dL Low HDL Cholesterol HDL >or= 60 mg/dL High HDL Cholesterol Serum or plasma cholesterol in VLDL measurement (mass/volume)Ordered By: Adelfo Dhaliwal on 01-16-2023 Cholesterol in VLDL [Mass/Vol] 25 mg/dL 5-40 [facility] Serum or plasma low density lipoprotein (LDL) cholesterol measurement (mass/volume)Ordered By: Adelfo Dhaliwal on 01-16-2023 Cholesterol in LDL [Mass/Vol] 50 mg/dL 0-130 [facility] Whole blood hemoglobin A1c/t otal hemoglobin ratio (mass fraction)Ordered By: Adelfo Dhaliwal on 01-09-2023 HbA1c (Bld) [Mass fraction] 8.4 % 3.8-5.6 [facility] Comment on above: Normal < 5.7 % Predi abetic 5.7 - 6.4 % Diabetic >or= 6.5 % Please note range changes. Telephone Encounteron 2022 Interventional Physiatrist Authentication Interface Message Text Patient is calling to states she had dentures that Dr Ayala took to have them to realign. Patient states the bottom denture was never returned to her. Patient states the dentures were not made in the clinic. They were made outside of [facility]. When she seen Dr Ayala in June 2022 he performed another mold and she is waiting to pick them up. Pls call pt @ [phone] Thank you Normal [facility] [employer] Interface Message Text Spoke with patient regarding her dentures. Explained to her that Dr. Ayala does not make dentures. Provided the contact information for [facility] and explained that if these dentures have been made by a [facility] provider, this is the department that will have them, otherwise she will need to see an outside dentist to have dentures made. Patient understood. Titus Ramirez DMD quilter fixer, PGY-3 Team Pager: [phone] Normal [facility] [email or web address] Authentication Interface Message Text The patient called in looking for her teeth. She wants to speak to about this matter. She says that he took her teeth so he is responsible for replacing them. I tried explaining to he patient that does not make dentures or teeth and she said that she knows that but still wants to speak with him. She said that this is very important as she has not had any teeth since June. Please give pt a call letting her know the best way to go about getting new teeth. She is upset about this and can be reached at [phone] Thank You! Normal [facility] - Chemistry and C hemistry - challengeOrdered By: Adelfo Dhaliwal on 10-30-2022 Magnesium [Mass/Vol] 1.8 mg/dL 1.6-2.6 [facility] Whole blood hemoglobin A1c/t otal hemoglobin ratio (mass fraction)Ordered By: Adelfo Dhaliwal on 10-30-2022 HbA1c (Bld) [Mass fraction] 6.6 % 3.8-5.6 [facility] Comment on above: Normal < 5.7 % Predi abetic 5.7 - 6.4 % Diabetic >or= 6.5 % Please note range changes. Basophil percentageOrdered B y: Adelfo Dhaliwal on 10-01-2022 Chloride [Moles/Vol] 107 mmol/L 98-107 [facility] Glucose [Mass/Vol] 125 mg/dL 74-106 [facility] Comment on above: Fasting Glucose resu lt from 100 to 125 mg/dL suggests IMPAIRED HOMEOSTASIS per A.D.A. criteria. Potassium [Moles/Vol] 4.3 mmol/L 3.5-5.1 [facility] Sodium [Moles/Vol] 140 mmol/L 136-145 [facility] Laboratory - Chemistry and C hemistry - challengeOrdered By: Adelfo Dhaliwal on 10-01-2022 CO2 [Moles/Vol] 24.0 mmol/L 21.0-32.0 [facility] Urea nitrogen/Creatinine [Mass ratio] 23.6 mg/mg 10-20 [facility] No Panel InformationOrdered By: Adelfo Dhaliwal on 10-01-2022 Estimated GFR (MDRD) Amer 134 mL/min >60 [facility] Comment on above: GFR Calc Estimated GFR (MDRD) Non-Af Amer 111 mL/min >60 [facility] Comment on above: Non- GFR Calc Serum or plasma calcium ivette urement (mass/volume)Ordered By: Adelfo Dhaliwal on 10-01-2022 Calcium [Mass/Vol] 9.8 mg/dL 8.5-10.1 [facility] Serum or plasma creatinine m easurement (mass/volume)Ordered By: Adelfo Dhaliwal on 10-01-2022 Creatinine [Mass/Vol] 0.55 mg/dL 0.55-1.02 [facility] Comment on above: The validity of the calculated GFR & GFRAA in patients over 70 years has not been determined. Clinical correlation is essential. Serum or plasma urea nitroge n measurement (mass/volume)Ordered By: Adelfo Dhaliwal on 10-01-2022 Urea nitrogen [Mass/Vol] 13 mg/dL 7-18 [facility] Thin prep Papanicolaou smear with manual screeningOrdered By: Adelfo Dhaliwal on 10-01-2022 Thin prep Papanicolaou smear with manual screening 9 5-15 [facility] Patient Instructionson 06-19 Interventional Physiatrist Authentication Interface Message Text Dental extraction Instructions Biting on Gauze to Control Bleeding Bleeding may occur for some time after you extraction. In most cases this bleeding can be easily controlled by placing a piece of clean gauze DIRECTLY over the empty tooth socket. Then make sure that you bite firmly on this gauze for 30 to 60 minutes. Use the gauze we supplied to you in the bag. Wash your hands with soap and water before touching the gauze and placing it in your mouth. Place the used gauze from your mouth in a plastic bag and dispose the bag in a trash container. Make sure to wash your hands again when you are done touching the used gauze and before touching anything else. If a small amount of bleeding continues after 45 minutes then repeat these instructions. Sometimes biting a tea bag may be helpful in controlling minor bleeding. Very light bleeding for 2 days is not uncommon. If heavy bleeding is still persistent during normal clinic hours than call the Clinic where the extraction was done to speak with an oral surgeon. [facility] [phone]. HELPING THE HEALING PROCESS AND STOPPING THE BLEEDING FOR THE NEXT 24 HOURS (1 DAY) AFTER THE EXTRACTION: DO NOT RINSE YOUR MOUTH OR SPIT 2. DO NOT DRINK ANY HOT LIQUIDS SUCH SOUP, COFFEE, TEA, HOT CHOCOLATE AVOID HEAVY LIFTING, BENDING OR OTHER STENUOUS EXERCISES SLEEP WITH 2 PILLOWS OR IN A RECLINER CHAIR. KEEPING HEAD ELEVATED WILL REDUCE SWELLING. SUTURE WILL DISSOLVE IN 7-10 DAYS FOR THE NEXT 72 HOURS (3 DAYS) AFTER THE EXTRACTION: DO NOT SMOKE OR DRINK ALCOHOL DO NOT DRINK OR SUCK FROM A STRAW OR ANYTHING ELSEDO NOT DRINK. Stitches may have been placed to help healing. Your surgeon will advise you if you need to return to have them removed. TOOTH BRUSHING On the day of the extraction it is best to avoid brushing the teeth right next to the extraction site. On the next day you can start brushing ALL your teeth but in a gentle fashion. Remember to not rinse strongly because it may cause you to start bleeding from the extraction site again. SWELLING AND PAIN After the extraction you may feel some pain and experience some swelling. An ice pack of unopened bag of frozen peas of corn applied to the area should keep the swelling down. Put the ice pack on you face for 10 minutes and then leave it off for the next 20 minutes. You can repeat this patter as you feel is necessary for up to 24 hours after the extraction. To avoid injury, make sure that adults or children avoid biting or chewing on their lips of cheeks, which may be numb following an extraction. If your pain or swelling seems to be getting worse or you feel as though something is not right then call your dentist, as directed above. ANTIBIOTICS AND PAIN MEDICATION If antibiotics have been prescribed then you should take them as directed; this includes taking all the antibiotic (or liquid) pills that were prescribed. If you don't finish them completely a serious infection could result. You may have little of no discomfort after the extraction. If you have minor pain then you may want to take acetaminophen (Tylenol) or ibuprofen (Motrin). It is very important that before taking any medications that you read and follow the directions and warnings that come with these products so you know whether they are right for you and you situation. If you have any questions on whether these medications are right for you, first talk to your doctor or pharmacist before taking the medication. Your surgeon may have given you a written prescription for pain relief. It is important that if you decide to take it you read and understand all the precautions, warnings and directions that come with the medication. If you have any questions on whether the medication is right for you, first talk to your doctor or pharmacist before taking the medication. The pain medication prescription that your dentist gave you may contain a narcotic (like codeine). If so, most narcotic pain medications may upset your stomach. If so, then it is best to take them with food. The pain medication prescription that you were given can also make you drowsy or make you act strangely. If so, you should limit or stop activities such as driving a motor vehicle, operate machinery or other activities that require your full attention. EATING AND DRINKING A soft or liquid diet may be best for you after a difficult extraction. For a simpler extraction just make sure you do your chewing with those teeth that are NOT near the extraction site. POSTOPERATIVE INSTRUCTION AFTER SEDATION / GENERAL ANESTHESIA If you had general anesthesia of IV sedation, do not drive or operate machinery for 24 hours. A responsible adult should be with you for the remainder of the day. When starting oral intake, be sure to consume CLEAR LIQUIDS first. Clear liquids consist of water, Sprite, veto joanne, Jell-O, and non-pulp containing juices such as c (more content not included)... Normal [facility] [employer] [facility] Progress Noteson 06-19-2022 Interventional Physiatrist Authentication Interface Message Text Normal [facility] [employer] [facility] Telephone Encounteron 2021 Interventional Physiatrist Authentication Interface Message Text Keerthi from [facility] called to confirm the Pa was approved. Approval noted 05/28. Please call [phone] to schedule the patient. Thank you! Normal [facility] [employer] [facility] Telephone Encounteron 2021 Interventional Physiatrist Authentication Interface Message Text Patient is calling again asking what's the update of her PA, and when would be the surgery date/time. Please reach out to pt. Thank you! Normal [facility] [employer] [facility] Telephone Encounteron 2021 Interventional Physiatrist Authentication Interface Message Text Steffi Hale emergency worker from [facility] called regarding the patient. Steffi states the patient has decided to use our services for Oral surgery. Patient had a consultation on 04/17, and Steffi would like to go forward with the process. Once the insurance approves the surgery, please call [facility] and speak to the [address] [place] [address] nurse to schedule at [phone]. Thank you! Normal [facility] [employer] Progress Noteson 04-18-2022 Interventional Physiatrist Authentication Interface Message Text Teaching Physician Note: I saw and evaluated the patient. I personally obtained the otero and critical portions of the history and physical exam. I reviewed the resident's documentation and discussed the patient with the resident. I agree with the resident's medical decision making as documented in the resident's note. López Ayala DDS Normal [facility] [employer] Patient Instructionson 04-17 Interventional Physiatrist Authentication Interface Message Text Dental extraction Instructions Biting on Gauze to Control Bleeding Bleeding may occur for some time after you extraction. In most cases this bleeding can be easily controlled by placing a piece of clean gauze DIRECTLY over the empty tooth socket. Then make sure that you bite firmly on this gauze for 30 to 60 minutes. Use the gauze we supplied to you in the bag. Wash your hands with soap and water before touching the gauze and placing it in your mouth. Place the used gauze from your mouth in a plastic bag and dispose the bag in a trash container. Make sure to wash your hands again when you are done touching the used gauze and before touching anything else. If a small amount of bleeding continues after 45 minutes then repeat these instructions. Sometimes biting a tea bag may be helpful in controlling minor bleeding. Very light bleeding for 2 days is not uncommon. If heavy bleeding is still persistent during normal clinic hours than call the Clinic where the extraction was done to speak with an oral surgeon. [facility] [phone]. HELPING THE HEALING PROCESS AND STOPPING THE BLEEDING FOR THE NEXT 24 HOURS (1 DAY) AFTER THE EXTRACTION: DO NOT RINSE YOUR MOUTH OR SPIT 2. DO NOT DRINK ANY HOT LIQUIDS SUCH SOUP, COFFEE, TEA, HOT CHOCOLATE AVOID HEAVY LIFTING, BENDING OR OTHER STENUOUS EXERCISES SLEEP WITH 2 PILLOWS OR IN A RECLINER CHAIR. KEEPING HEAD ELEVATED WILL REDUCE SWELLING. SUTURE WILL DISSOLVE IN 7-10 DAYS FOR THE NEXT 72 HOURS (3 DAYS) AFTER THE EXTRACTION: DO NOT SMOKE OR DRINK ALCOHOL DO NOT DRINK OR SUCK FROM A STRAW OR ANYTHING ELSEDO NOT DRINK. Stitches may have been placed to help healing. Your surgeon will advise you if you need to return to have them removed. TOOTH BRUSHING On the day of the extraction it is best to avoid brushing the teeth right next to the extraction site. On the next day you can start brushing ALL your teeth but in a gentle fashion. Remember to not rinse strongly because it may cause you to start bleeding from the extraction site again. SWELLING AND PAIN After the extraction you may feel some pain and experience some swelling. An ice pack of unopened bag of frozen peas of corn applied to the area should keep the swelling down. Put the ice pack on you face for 10 minutes and then leave it off for the next 20 minutes. You can repeat this patter as you feel is necessary for up to 24 hours after the extraction. To avoid injury, make sure that adults or children avoid biting or chewing on their lips of cheeks, which may be numb following an extraction. If your pain or swelling seems to be getting worse or you feel as though something is not right then call your dentist, as directed above. ANTIBIOTICS AND PAIN MEDICATION If antibiotics have been prescribed then you should take them as directed; this includes taking all the antibiotic (or liquid) pills that were prescribed. If you don't finish them completely a serious infection could result. You may have little of no discomfort after the extraction. If you have minor pain then you may want to take acetaminophen (Tylenol) or ibuprofen (Motrin). It is very important that before taking any medications that you read and follow the directions and warnings that come with these products so you know whether they are right for you and you situation. If you have any questions on whether these medications are right for you, first talk to your doctor or pharmacist before taking the medication. Your surgeon may have given you a written prescription for pain relief. It is important that if you decide to take it you read and understand all the precautions, warnings and directions that come with the medication. If you have any questions on whether the medication is right for you, first talk to your doctor or pharmacist before taking the medication. The pain medication prescription that your dentist gave you may contain a narcotic (like codeine). If so, most narcotic pain medications may upset your stomach. If so, then it is best to take them with food. The pain medication prescription that you were given can also make you drowsy or make you act strangely. If so, you should limit or stop activities such as driving a motor vehicle, operate machinery or other activities that require your full attention. EATING AND DRINKING A soft or liquid diet may be best for you after a difficult extraction. For a simpler extraction just make sure you do your chewing with those teeth that are NOT near the extraction site. POSTOPERATIVE INSTRUCTION AFTER SEDATION / GENERAL ANESTHESIA If you had general anesthesia of IV sedation, do not drive or operate machinery for 24 hours. A responsible adult should be with you for the remainder of the day. When starting oral intake, be sure to consume CLEAR LIQUIDS first. Clear liquids consist of water, Sprite, veto joanne, Jell-O, and non-pulp containing juices such as c (more content not included)... Normal [facility] Progress Noteson 04-17-2022 Interventional Physiatrist Authentication Interface Message Text Tooth #3 Normal [facility] Interventional Physiatrist Authentication Interface Message Text [facility] PATIENT VISIT CHIEF COMPLAINT: Toothache HISTORY OF PRESENT ILLNESS: 86 yo F with pmhx significant for T2DM, obesity, COPD, and asthma presents to the [facility] clinic for consult for extraction of remaining dentition. Pt has had waxing and waning pain that prevents the patient to chew, function, and maintain adequate hygiene. PAST MEDICAL HISTORY: 86 yrs old White female No past medical history on file. There is no problem list on file for this patient. System History Cardiovascular PAD, HLD Pulmonary Asthma, COPD Hematologic Negative history Renal Acute Plyonephritis Hepatic Negative history Endocrine Diabetes Hypothyroidism Musculoskeletal Negative history Neurological Negative history Infectious Disease Negative history Psychiatric Negative history Reproductive Negative history MEDICATIONS: Lantus 3mL (14 units) Levothyroxine 100mcg daily Lisinopril 5mg daily Atorvastatin 40mg daily Gabapentin -100mg TID Duloxetine Pantoprazole ALLERGIES: Patient has no allergy information on record. SURGICAL HX: No past surgical history on file. SOCIAL HX: Tobacco: Never No Significant findings CLINICAL EXAMINATION Extraoral examination: No facial asymmetry nor swelling Tenderness to palpation on the cheek and over the soft tissue at the angle of the mandible No appreciable lymphadenopathy Crepitus of TMJs bilaterally with minimal pain R.L No tenderness to palpation of temporalis and masseter Range of motion within normal limits, PRAMOD ~30mm CN V1, V2, V3, VII intact bilaterally Intraoral examination: Soft tissue pink and moist Oral hygiene poor Oral cancer screen - negative findings Occlusion stable and reproducible Caries #6 #8, #9, #10 #11 12 #14 Fractured #3, #4, #5, #14 No vestibular swelling No FOM edema or ecchymosis Discussion: Pt was very upset that there was no procedure and that the future [place] was [place]. Informed patient about today's appointment was a consultation and all procedures are completed here on [facility], [address], [place]. Discussed sedation. Pt wanted to be asleep, but informed patient due to her pmhx she would not be an ideal candidate due to airway challenges. Pt has a history of COPD and nearly 50 BMI. RADIOGRAPHIC INTERPRETATION: PA taken for #2 and #4 Referring doctor will email radiographs Caries/Retained root tips # 4 and # 5 DIAGNOSIS: Caries and Chronic periodontal disease TREATMENT: Exam, Panorex evaluated, and Awaiting Radiographs PLAN: Extractions # 2, 8, 9, 10, extraction of retained root tips 4,5, 10, 11, 12, 14 under local anesthetic. Pt will decide if she will have procedure completed with us or a local surgeon near [place]. Will also require PANO for patient as there was no pano sent from referring provider prior to the time the appointment. Jules Moore DMD Normal [facility] Basophil percentageon 2021 Bilirubin [Mass/Vol] 0.80 mg/dL 0.20-1.00 [facility] Work Phone: Comment on above: For patients on eltr ombopag therapy, use of Dimension Rogers TBIL is not recommended. Chloride [Moles/Vol] 107 mmol/L 98-107 [facility] Work Phone: Cholesterol [Mass/Vol] 150 mg/dL <200 [facility] Work Phone: Comment on above: <200 mg/dL Desirable 200-240 mg/dL Borderline >240 mg/dL High Risk Glucose [Mass/Vol] 135 mg/dL 74-106 [facility] Work Phone: Comment on above: Fasting Glucose resu lt greater than or equal to 126 mg/dL suggests DIABETES MELLITUS per A.D.A. criteria. Potassium [Moles/Vol] 4.1 mmol/L 3.5-5.1 [facility] Work Phone: Comment on above: Slight Hemolysis, Re sult may be falsely increased. Protein [Mass/Vol] 6.6 g/dL 6.4-8.2 [facility] Work Phone: Sodium [Moles/Vol] 140 mmol/L 136-145 [facility] Work Phone: Triglyceride [Mass/Vol] 105 mg/dL [facility] Work Phone: Comment on above: The drugs N-Acetylcy steine and Metamizole may falsely depress this assay.Serum Triglycerides Reference Interval Normal <150 mg/dL Borderline high 150 - 199 mg/dL High 200 - 499 mg/dL Very High > or = 500 mg/dL WBC (Bld) [#/Vol] 7.9 10*3/uL 4.4-11.0 [facility] Work Phone: Blood erythrocytes count (nu mber/volume)on 12-21-2021 RBC (Bld) [#/Vol] 4.28 10*6/uL 4.2-5.4 [facility] Work Phone: Blood hemoglobin measurement (mass/volume)on 12-21-2021 Hemoglobin (Bld) [Mass/Vol] 13.4 g/dL 12.0-15.0 [facility] Work Phone: Blood platelet mean volumeon 12-21-2021 Platelet mean volume (Bld) [Entitic vol] 9.8 fL 6.2-12.0 [facility] Work Phone: Determination of erythrocyte mean corpuscular volume (MCV)on 12-21-2021 MCV (RBC) [Entitic vol] 96.5 fL 81-99 [facility] Work Phone: Hematocrit Auto (Bld) [Volum e fraction]on 12-21-2021 Hematocrit (Bld) [Volume fraction] 41.3 % 37-47 [facility] Work Phone: Laboratory - Chemistry and C hemistry - challengeon 12-21-2021 ALP [Catalytic activity/Vol] 120 U/L 45-117 [facility] Work Phone: ALT [Catalytic activity/Vol] 23 U/L 13-56 [facility] Work Phone: CO2 [Moles/Vol] 29.0 mmol/L 21.0-32.0 [facility] Work Phone: Globulin (S) [Mass/Vol] 3.6 g/dL 2.2-4.2 [facility] Work Phone: Urea nitrogen/Creatinine [Mass ratio] 31.4 mg/mg 10-20 [facility] Work Phone: Laboratory - Hematology and Cell countson 12-21-2021 Erythrocyte distribution width (RBC) [Entitic vol] 44.5 fL 35.1-43.9 [facility] Work Phone: Erythrocyte distribution width (RBC) [Ratio] 12.6 % 11.6-14.6 [facility] Work Phone: MCH (RBC) [Entitic mass] 31.3 pg 27.0-32.0 [facility] Work Phone: MCHC Auto (RBC) [Mass/Vol]on 12-21-2021 MCHC (RBC) [Mass/Vol] 32.4 g/dL 32-36 [facility] Work Phone: No Panel Informationon 12-21 Estimated GFR (MDRD) Amer 128 mL/min >60 [facility] Work Phone: Comment on above: GFR Calc Estimated GFR (MDRD) Non-Af Amer 106 mL/min >60 [facility] Work Phone: Comment on above: Non- GFR Calc Thyroid Stimulating Hormone (TSH) 0.70 uIU/mL 0.358-3.74 [facility] Work Phone: Vitamin D 25-Hydroxy 51.9 ng/mL [facility] Work Phone: Comment on above: Vitamin D 25(OH) Sta tus Range Deficiency <20 ng/mL (50nmol/L) Insufficiency 20 - 30 ng/mL (50 - 75 nmol/L) Sufficiency 30 - 100 ng/mL (75 - 250 nmol/L) Toxicity >100 ng/mL (>250 nmol/L) Platelets bldon 12-21-2021 Platelets (Bld) [#/Vol] 262 10*3/uL 150-450 [facility] Work Phone: Serum or plasma albumin ivette urement (mass/volume)on 12-21-2021 Albumin [Mass/Vol] 3.0 g/dL 3.2-5.0 [facility] Work Phone: Serum or plasma albumin/glob ulin mass ratioon 12-21-2021 Albumin/Globulin [Mass ratio] 0.8 {ratio} 0.9-2.4 [facility] Work Phone: Serum or plasma calcium ivette urement (mass/volume)on 12-21-2021 Calcium [Mass/Vol] 9.5 mg/dL 8.5-10.1 [facility] Work Phone: Serum or plasma cholesterol in HDL measurement (mass/volume)on 12-21-2021 Cholesterol in HDL [Mass/Vol] 57 mg/dL [facility] Work Phone: Comment on above: The drugs N-Acetylcy steine and Metamizole may falsely depress this assay. Reference Range HDL <40 mg/dL Low HDL Cholesterol HDL >or= 60 mg/dL High HDL Cholesterol Serum or plasma cholesterol in VLDL measurement (mass/volume)on 12-21-2021 Cholesterol in VLDL [Mass/Vol] 21 mg/dL 5-40 [facility] Work Phone: Serum or plasma creatinine m easurement (mass/volume)on 12-21-2021 Creatinine [Mass/Vol] 0.57 mg/dL 0.55-1.02 [facility] Work Phone: Comment on above: The validity of the calculated GFR & GFRAA in patients over 70 years has not been determined. Clinical correlation is essential. Serum or plasma low density lipoprotein (LDL) cholesterol measurement (mass/volume)on 12-21-2021 Cholesterol in LDL [Mass/Vol] 72 mg/dL 0-130 [facility] Work Phone: Serum or plasma urea nitroge n measurement (mass/volume)on 12-21-2021 Urea nitrogen [Mass/Vol] 18 mg/dL 7-18 [facility] Work Phone: Thin prep Papanicolaou smear with manual screeningon 12-21-2021 Thin prep Papanicolaou smear with manual screening 15 U/L 15-37 [facility] Work Phone: Comment on above: Slight Hemolysis, Re sult may be falsely increased. Thin prep Papanicolaou smear with manual screening 4 5-15 [facility] Work Phone: Whole blood hemoglobin A1c/t otal hemoglobin ratio (mass fraction)on 12-21-2021 HbA1c (Bld) [Mass fraction] 6.4 % 3.8-5.6 [facility] Work Phone: Comment on above: Normal < 5.7 % Predi abetic 5.7 - 6.4 % Diabetic >or= 6.5 % Please note range changes. CR Spine Lumbosacral 4+ View son 06-15-2020 CR Spine Lumbosacral 4+ Views Patient Name: RAUDEL AHUMADA Diagnostic Radiology Exam Date/Time 06/15/2020 14:37:53 EST Exam CR Spine Lumbosacral 4+ Views Ordering Physician MD DOSHI DIANA Accession Number [id number] CPT4 Codes 48998 () Reason For Exam lumbar back pain Report LUMBAR SPINE, 5 VIEWS: INDICATION: Low back pain COMPARISON: No previous studies are available for comparison. Frontal, bilateral oblique, lateral and coned-down lumbosacral spot views of the lumbar spine were obtained. There are 5 typical lumbar vertebrae. The bone mineral density is diminished. The vertebral body heights are within normal limits. Disc space narrowing is present at L4-L5 and L5-S1. 7 mm anterolisthesis is noted at L4-L5. 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 No fracture is noted. The paravertebral soft tissues are unremarkable. 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 Report Dictated on Workstation: [id number] Final Dictating Physician: DO LLOYD ALFRED Signed Date and Time: 06/15/2020 3:14 pm Signed by: DO LLOYD ALFRED Transcribed Date and Time: 06/15/2020 3:16 Normal [facility] XR LUMBAR SPINE (MIN 4 VIEWS )on 06-15-2020 Patient Name: RAUDEL AHUMADA ---Diagnostic Radiology--- Exam Date/Time 06/15/2020 14:37:53 EST Exam CR Spine Lumbosacral 4+ Views Ordering Physician MD DOSHI DIANA Accession Number [id number] CPT4 Codes 60555 () Reason For Exam lumbar back pain Report LUMBAR SPINE, 5 VIEWS: INDICATION: Low back pain COMPARISON: No previous studies are available for comparison. Frontal, bilateral oblique, lateral and coned-down lumbosacral spot views of the lumbar spine were obtained. There are 5 typical lumbar vertebrae. The bone mineral density is diminished. The vertebral body heights are within normal limits. Disc space narrowing is present at L4-L5 and L5-S1. 7 mm anterolisthesis is noted at L4-L5. 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 No fracture is noted. The paravertebral soft tissues are unremarkable. 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 Report Dictated on Workstation: [employer] --- Final --- Dictating Physician: DO LLOYD ALFRED Signed Date and Time: 06/15/2020 3:14 pm Signed by: DO LLOYD ALFRED Transcribed Date and Time: 06/15/2020 3:16 [facility], [facility], [facility] Incoming Radiology Results From [facility] - 06/15/2020 3:16 PM EST Patient Name: RAUDEL HAUMADA ---Diagnostic Radiology--- Exam Date/Time 06/15/2020 14:37:53 EST Exam CR Spine Lumbosacral 4+ Views Ordering Physician MD DILEEP, MAIDA Accession Number [id number] CPT4 Codes 78783 () Reason For Exam lumbar back pain Report LUMBAR SPINE, 5 VIEWS: INDICATION: Low back pain COMPARISON: No previous studies are available for comparison. Frontal, bilateral oblique, lateral and coned-down lumbosacral spot views of the lumbar spine were obtained. There are 5 typical lumbar vertebrae. The bone mineral density is diminished. The vertebral body heights are within normal limits. Disc space narrowing is present at L4-L5 and L5-S1. 7 mm anterolisthesis is noted at L4-L5. 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 No fracture is noted. The paravertebral soft tissues are unremarkable. 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 Report Dictated on Workstation: [id number] --- Final --- Dictating Physician: DO LLOYD ALFRED Signed Date and Time: 06/15/2020 3:14 pm Signed by: DO LLOYD ALFRED Transcribed Date and Time: 06/15/2020 3:16 [place] CBC Auto Differentialon 10-0 -2019 Absolute Baso # 0.1 10*3/uL 0 - 0.2 10*3/uL [place] Absolute Neut # 4.8 10*3/uL 1.8 - 7 10*3/uL [place] Basophils/100 WBC (Bld) 0.9 % 0 - 2 % M [place] Eosinophils (Bld) [#/Vol] 0.2 10*3/uL 0 - 0.5 10*3/uL [place] Eosinophils/100 WBC (Bld) 2.5 % 1 - 6 % [place] Erythrocyte distribution width (RBC) [Ratio] 12.9 % 11.5 - 14.5 % [place] Granulocytes/100 WBC (Bld) 52.8 % 40 - 80 % [place] Hematocrit (Bld) [Volume fraction] 46.8 % 35 - 47 % [place] Hemoglobin (Bld) [Mass/Vol] 16.2 g/dL High 11.7 - 16 g/dL [place] Interpretation and review of laboratory results Abnormal [place] Lymphocytes (Bld) [#/Vol] 3.4 10*3/uL 1 - 4.3 10*3/uL [place] Lymphocytes/100 WBC (Bld) 36.9 % 20 - 40 % [place] MCH (RBC) [Entitic mass] 31.9 pg 26 - 34 pg [place] MCHC (RBC) [Mass/Vol] 34.7 % 32 - 36 % [place] MCV (RBC) [Entitic vol] 91.8 fL 79 - 98 fL [place], [place] Monocytes (Bld) [#/Vol] 0.6 10*3/uL 0 - 0.8 10*3/uL [place] Monocytes/100 WBC (Bld) 6.9 % 2 - 10 % [place] Platelet mean volume (Bld) [Entitic vol] 7.7 fL 7.4 - 10.4 fL [place] Platelets (Bld) [#/Vol] 298 10*3/uL 140 - 440 10*3/uL [place] RBC (Bld) [#/Vol] 5.10 10*6/uL 3.8 - 5.2 10*6/uL [place] WBC (Bld) [#/Vol] 9.1 10*3/uL 3.6 - 10.7 10*3/uL [place] Test Performed by [facility], [address] [place], [place] [address] [place] Comp Metabolic Panelon 05-12 ALT [Catalytic activity/Vol] 17 U/L Normal 0-34 [facility] Comment on above: Result Comment: The ALT test is performed by an updated assay method. Please note that the reference intervals have been changed and are now sex specific. Performed By: #### L IPD2, HEMDF, TSH5, CMP3, HA1C2 #### [facility] [address] [place] [address] Calcium [Mass/Vol] 10.5 mg/dL High 8.4-10.4 [facility] Comment on above: Performed By: #### L IPD2, HEMDF, TSH5, CMP3, HA1C2 #### [facility] [address] [place] [address] ALP [Catalytic activity/Vol] 104 U/L Normal 38-126 [facility] Comment on above: Performed By: #### L IPD2, HEMDF, TSH5, CMP3, HA1C2 #### [facility] [address] [place] [address] Anion gap [Moles/Vol] 9 Normal [facility] Comment on above: Performed By: #### L IPD2, HEMDF, TSH5, CMP3, HA1C2 #### [facility] [address] [place] [address] AST [Catalytic activity/Vol] 20 U/L Normal 15-46 [facility] Comment on above: Performed By: #### L IPD2, HEMDF, TSH5, CMP3, HA1C2 #### [facility] [address] [place] [address] Bilirubin [Mass/Vol] 1.0 mg/dL Normal 0.2-1.3 [facility] Comment on above: Performed By: #### L IPD2, HEMDF, TSH5, CMP3, HA1C2 #### [facility] [address] [place] [address] CO2 [Moles/Vol] 25 mmol/L Normal 22-30 [facility] Comment on above: Performed By: #### L IPD2, HEMDF, TSH5, CMP3, HA1C2 #### [facility] [address] [place] [address] Creatinine [Mass/Vol] 0.59 mg/dL Normal 0.52-1.25 [facility] Comment on above: Performed By: #### L IPD2, HEMDF, TSH5, CMP3, HA1C2 #### [facility] [address] [place] [address] GFR/1.73 sq M predicted among blacks MDRD (S/P/Bld) [Vol rate/Area] mL/min/{1.73_m2} Normal >60 [facility] Comment on above: Performed By: #### L IPD2, HEMDF, TSH5, CMP3, HA1C2 #### [facility] [address] [place] [address] GFR/1.73 sq M predicted among non-blacks MDRD (S/P/Bld) [Vol rate/Area] 83.9 mL/min/{1.73_m2} Normal >60 [facility] Comment on above: Result Comment: KDIG O guidelines provide the following GFR categories: Stage GFR(ml/min/1.73 m2) Terms G1 >=90 Normal or high G2 60-89 Mildly decreased* G3a 45-59 Mildly to moderately decreased G3b 30-44 Moderately to severely decreased G4 15-29 Severely decreased G5 <15 Kidney failure *Relative to young adult level. In the absence of evidence of kidney damage, neither GFR category G1 nor G2 fulfill the criteria for CKD. The CKD-EPI equation is validated in individuals 18 years of age and older. Currently the best equation for estimating glomerular filtration rate (GFR) from serum creatinine in children is the Bedside Sims equation. It is less accurate in patients with extremes of muscle mass, restriction of dietary protein, ingestion of creatine, extra-renal metabolism of creatinine, or treatment with medications that affect renal tubular creatinine secretion. Performed By: #### L IPD2, HEMDF, TSH5, CMP3, HA1C2 #### [facility] [address] [place] [address] Glucose [Mass/Vol] 146 mg/dL High 70-100 [facility] Comment on above: Performed By: #### L IPD2, HEMDF, TSH5, CMP3, HA1C2 #### [facility] [address] [place] [address] Protein [Mass/Vol] 7.1 g/dL Normal 6.3-8.2 [facility] Comment on above: Performed By: #### L IPD2, HEMDF, TSH5, CMP3, HA1C2 #### [facility] [address] [place] [address] Urea nitrogen [Mass/Vol] 20 mg/dL Normal 7-20 [facility] Comment on above: Performed By: #### L IPD2, HEMDF, TSH5, CMP3, HA1C2 #### [facility] [address] [place] [address] Chloride [Moles/Vol] 105 mmol/L Normal 98-107 [facility] Comment on above: Performed By: #### L IPD2, HEMDF, TSH5, CMP3, HA1C2 #### [facility] [address] [place] [address] Potassium [Moles/Vol] 4.1 mmol/L Normal 3.5-5.1 [facility] Comment on above: Performed By: #### L IPD2, HEMDF, TSH5, CMP3, HA1C2 #### [facility] [address] [place] [address] Sodium [Moles/Vol] 139 mmol/L Normal 135-145 [facility] Comment on above: Performed By: #### L IPD2, HEMDF, TSH5, CMP3, HA1C2 #### [facility] [address] [place] [address] Albumin [Mass/Vol] 4.4 g/dL Normal 3.5-5.0 [facility] Comment on above: Performed By: #### L IPD2, HEMDF, TSH5, CMP3, HA1C2 #### [facility] [address] [place] [address] Comprehensive Metabolic Pane denny 05-12-2020 Albumin [Mass/Vol] 4.4 g/dL 3.5 - 5 g/dL [place] ALP [Catalytic activity/Vol] 104 U/L 38 - 126 U/L [place] ALT [Catalytic activity/Vol] 17 U/L 0 - 34 U/L [place] Comment on above: The ALT test is perf ormed by an updated assay method. Please note that the reference intervals have been changed and are now sex specific. Anion gap [Moles/Vol] 9 mmol/L [place] AST [Catalytic activity/Vol] 20 U/L 15 - 46 U/L [place] Bilirubin Ql (U) 1.0 mg/dL 0.2 - 1.3 mg/dL [place] Calcium [Mass/Vol] 10.5 mg/dL High 8.4 - 10. 4 mg/dL [place] Chloride [Moles/Vol] 105 mmol/L 98 - 10 7 mmol/L [place] CO2 [Moles/Vol] 25 mmol/L 22 - 30 mmol/L [place] Creatinine [Mass/Vol] 0.59 mg/dL 0.52 - 1.25 mg/dL [place] EGFR IF NonAfrican Ivorian 83.9 mL/min >60 [place] Comment on above: KDIGO guidelines pro vide the following GFR categories: Stage GFR(ml/min/1.73 m2) Terms G1 >=90 Normal or high G2 60-89 Mildly decreased* G3a 45-59 Mildly to moderately decreased G3b 30-44 Moderately to severely decreased G4 15-29 Severely decreased G5 <15 Kidney failure *Relative to young adult level. In the absence of evidence of kidney damage, neither GFR category G1 nor G2 fulfill the criteria for CKD. The CKD-EPI equation is validated in individuals 18 years of age and older. Currently the best equation for estimating glomerular filtration rate (GFR) from serum creatinine in children is the Bedside Sims equation. It is less accurate in patients with extremes of muscle mass, restriction of dietary protein, ingestion of creatine, extra-renal metabolism of creatinine, or treatment with medications that affect renal tubular creatinine secretion. GFR/1.73 sq M predicted among blacks MDRD (S/P/Bld) [Vol rate/Area] mL/min/{1.73_m2} >60 mL/min [place] Glucose [Mass/Vol] 146 mg/dL High 70 - 100 mg/dL [place] Potassium [Moles/Vol] 4.1 mmol/L 3.5 - 5.1 mmol/L [place] Protein [Mass/Vol] 7.1 g/dL 6.3 - 8.2 g/dL [place] Sodium [Moles/Vol] 139 mmol/L 135 - 145 mmol/L [place] Urea nitrogen [Mass/Vol] 20 mg/dL 7 - 20 mg/d L [place] Hemoglobin A1Con 05-12-2020 HbA1c (Bld) [Mass fraction] 6.7 % High 4.0-6.0 [facility] Comment on above: Result Comment: --Hg bA1C levels may not be accurate in patients who have renal disease, received recent blood transfusions, are anemic, or who have dyshemoglobinemia. Performed By: #### L IPD2, HEMDF, TSH5, CMP3, HA1C2 #### [facility] [address] [place] [address] HbA1c (Bld) [Mass fraction] 146 mg/dL Normal [facility] Comment on above: Performed By: #### L IPD2, HEMDF, TSH5, CMP3, HA1C2 #### [facility] [address] [place] [address] eAG 146 mg/dL [place] HbA1c (Bld) [Mass fraction] 6.7 % High 4 - 6 % [place] Comment on above: --HgbA1C levels may not be accurate in patients who have renal disease, received recent blood transfusions, are anemic, or who have dyshemoglobinemia. Interpretation and review of laboratory results Abnormal [place] Test Performed by [facility], [facility] [address] , [place], [place] [id number] [place] [address] Hemogram w/ Autodiffon 05-12 Abs Baso Cnt 0.1 10*3/uL Normal 0.0-0.2 [facility] Comment on above: Performed By: #### L IPD2, HEMDF, TSH5, CMP3, HA1C2 #### [facility] [address] [place] [address] Abs Neutrophile Cnt 4.8 10*3/uL Normal 1.8-7.0 [facility] Comment on above: Performed By: #### L IPD2, HEMDF, TSH5, CMP3, HA1C2 #### [address] [place] [address] Basophils/100 WBC (Bld) 0.9 % Normal 0.0-2.0 [facility] Comment on above: Performed By: #### L IPD2, HEMDF, TSH5, CMP3, HA1C2 #### [facility] [address] [place] [address] Eosinophils (Bld) [#/Vol] 0.2 10*3/uL Normal 0.0-0.5 [facility] Comment on above: Performed By: #### L IPD2, HEMDF, TSH5, CMP3, HA1C2 #### [facility] [address] [place] [address] Eosinophils/100 WBC (Bld) 2.5 % Normal 1.0-6.0 [facility] Comment on above: Performed By: #### L IPD2, HEMDF, TSH5, CMP3, HA1C2 #### [facility] [address] [place] [address] Erythrocyte distribution width (RBC) [Ratio] 12.9 % Normal 11.5-14.5 [facility] Comment on above: Performed By: #### L IPD2, HEMDF, TSH5, CMP3, HA1C2 #### [facility] [address] [place] [address] Granulocytes/100 WBC (Bld) 52.8 % Normal 40.0-80.0 [facility] Comment on above: Performed By: #### L IPD2, HEMDF, TSH5, CMP3, HA1C2 #### [facility] [address] [place] [address] Hematocrit (Bld) [Volume fraction] 46.8 % Normal 35.0-47.0 [facility] Comment on above: Performed By: #### L IPD2, HEMDF, TSH5, CMP3, HA1C2 #### [facility] [address] [place] [address] Hemoglobin (Bld) [Mass/Vol] 16.2 g/dL High 11.7-16.0 [facility] Comment on above: Performed By: #### L IPD2, HEMDF, TSH5, CMP3, HA1C2 #### [address] [place] [address] Lymphocytes (Bld) [#/Vol] 3.4 10*3/uL Normal 1.0-4.3 [facility] Comment on above: Performed By: #### L IPD2, HEMDF, TSH5, CMP3, HA1C2 #### [facility] [address] [place] [address] Lymphocytes/100 WBC (Bld) 36.9 % Normal 20.0-40.0 [facility] Comment on above: Performed By: #### L IPD2, HEMDF, TSH5, CMP3, HA1C2 #### [facility] [address] [place] [address] MCH (RBC) [Entitic mass] 31.9 pg Normal 26.0-34.0 [facility] Comment on above: Performed By: #### L IPD2, HEMDF, TSH5, CMP3, HA1C2 #### [facility] [address] [place] [address] MCHC (RBC) [Mass/Vol] 34.7 % Normal 32.0-36.0 [facility] Comment on above: Performed By: #### L IPD2, HEMDF, TSH5, CMP3, HA1C2 #### [facility] [address] [place] [address] MCV (RBC) [Entitic vol] 91.8 fL Normal 79.0-98.0 [facility] Comment on above: Performed By: #### L IPD2, HEMDF, TSH5, CMP3, HA1C2 #### [facility] [address] [place] [address] Monocytes (Bld) [#/Vol] 0.6 10*3/uL Normal 0.0-0.8 [facility] Comment on above: Performed By: #### L IPD2, HEMDF, TSH5, CMP3, HA1C2 #### [facility] [address] [place] [address] Monocytes/100 WBC (Bld) 6.9 % Normal 2.0-10.0 [facility] Comment on above: Performed By: #### L IPD2, HEMDF, TSH5, CMP3, HA1C2 #### [facility] [address] [place] [address] Platelet mean volume (Bld) [Entitic vol] 7.7 fL Normal 7.4-10.4 [facility] Comment on above: Performed By: #### L IPD2, HEMDF, TSH5, CMP3, HA1C2 #### [facility] [address] [place] [address] Platelets (Bld) [#/Vol] 298 10*3/uL Normal 140-440 [facility] Comment on above: Performed By: #### L IPD2, HEMDF, TSH5, CMP3, HA1C2 #### [facility] [address] [place] [address] RBC (Bld) [#/Vol] 5.10 10*6/uL Normal 3.80-5.20 [facility] Comment on above: Performed By: #### L IPD2, HEMDF, TSH5, CMP3, HA1C2 #### [facility] [address] [place] [address] WBC (Bld) [#/Vol] 9.1 10*3/uL Normal 3.6-10.7 [facility] Comment on above: Performed By: #### L IPD2, HEMDF, TSH5, CMP3, HA1C2 #### [facility] [address] [place] [address] Lipid Panelon 05-12-2020 Cholesterol in HDL [Mass/Vol] 54 mg/dL Normal 40-60 [facility] Comment on above: Performed By: #### L IPD2, HEMDF, TSH5, CMP3, HA1C2 #### [facility] [address] [place] [address] Cholesterol.total/Choles terol in HDL [Mass ratio] 5 Normal [facility] Comment on above: Result Comment: Ref Range: < 3 Low Risk for CHD 3-6 Mod Risk for CHD > 6 High Risk for CHD Performed By: #### L IPD2, HEMDF, TSH5, CMP3, HA1C2 #### [facility] [address] [place] [address] Protein [Mass/Vol] 151 mg/dL Abnormal <100 [facility] Comment on above: Performed By: #### L IPD2, HEMDF, TSH5, CMP3, HA1C2 #### [facility] [address] [place] [address] Triglyceride [Mass/Vol] 194 mg/dL Abnormal <150 [facility] Comment on above: Performed By: #### L IPD2, HEMDF, TSH5, CMP3, HA1C2 #### [facility] [address] [place] [address] Cholesterol [Mass/Vol] 244 mg/dL Abnormal < 200 [facility] Comment on above: Performed By: #### L IPD2, HEMDF, TSH5, CMP3, HA1C2 #### [facility] [address] [place] [address] Cholesterol [Mass/Vol] 244 mg/dL Abnormal <200 [place], [place] Cholesterol in HDL [Mass/Vol] 54 mg/dL 40 - 60 mg/dL [place] Cholesterol in LDL [Mass/Vol] 151 mg/dL Abnormal <100 [place] Cholesterol.total/Choles terol in HDL [Mass ratio] 5 {ratio} [place] Comment on above: Ref Range: < 3 Low Risk for CHD 3-6 Mod Risk for CHD > 6 High Risk for CHD Triglyceride [Mass/Vol] 194 mg/dL Abnormal <150 M [place], [place] Otheron 05-12-2020 Interpretation and review of laboratory results Abnormal [place] Test Performed by [facility], [address] TSH without Reflexon 020 Interpretation and review of laboratory results Abnormal [place] TSH Qn 7.501 u[IU]/mL High 0.465 - 4.68 u[IU]/mL [place] Test Performed by [facility], [address] , [address] Thyroid Stim. Hormoneon Thyroid Stim. Hormone 7.501 u[IU]/mL High 0.465-4.68 0 [facility] Comment on above: Performed By: #### L IPD2, HEMDF, TSH5, CMP3, HA1C2 #### [facility] [address] [place] [address] Glucose,Bedsideon 04-30-2020 Glucose [Mass/Vol] 131 mg/dL High 70-100 [facility] Comment on above: Result Comment: Test performed by glucose meter. Results may be 10%-15% lower than serum/plasma values. (CLIA ID [id number]) Performed By: #### L IPD2, HEMDF, TSH5, CMP3, HA1C2 #### [facility] [address] [place] [address] Glucose [Mass/Vol] 137 mg/dL High 70-100 [facility] Comment on above: Result Comment: Test performed by glucose meter. Results may be 10%-15% lower than serum/plasma values. (CLIA ID [id number]) Performed By: #### B GLU #### [facility] [address] [place] [address] [id number] 04-30-2020 SARS-CoV-2 SARS-CoV-2 --> Status: F Not Detected Expected Result: Not Detected _ Real-time, RT-PCR performed on the Contin[employer] MAX System by the [facility]. Negative results do not preclude SARS-CoV-2 infection and should not be used as the sole basis for treatment or other patient management decisions. This assay was developed by [employer] and distributed under an Emergency Use Authorization (EUA) granted by the FDA for the qualitative detection of SARS-CoV-2 nucleic acid. Results were determined from a pool consisting of specimens from additional patients. This test was modified, and its performance characteristics, showing minimal loss of sensitivity, have been validated by the [facility]. Approval is pending review by the U. S. Food and Drug Administration. If symptoms are severe and persist, testing a new specimen may be warranted. Additionally, IgG testing may be considered for patients more than 7-10 days post onset of symptoms. Expected Result: Not Detected _ Real-time, RT-PCR performed on the BD MAX System by the [facility] [employer]. Negative results do not preclude SARS-CoV-2 infection and should not be used as the sole basis for treatment or other patient management decisions. This assay was developed by [employer] and distributed under an Emergency Use Authorization (EUA) granted by the FDA for the qualitative detection of SARS-CoV-2 nucleic acid. Results were determined from a pool consisting of specimens from additional patients. This test was modified, and its performance characteristics, showing minimal loss of sensitivity, have been validated by the [facility]. Approval is pending review by the [place]. S. Food and Drug Administration. If symptoms are severe and persist, testing a new specimen may be warranted. Additionally, IgG testing may be considered for patients more than 7-10 days post onset of symptoms. Normal [facility] Comment on above: Order Comment: Speci men Source Comment:Nasopharyngeal Swab Performed By: #### L IPD2, HEMDF, TSH5, CMP3, HA1C2 #### [facility] [address] [place] [address] Basic Metabolic Panelon 04-12 Calcium [Mass/Vol] 9.7 mg/dL Normal 8.4-10.4 [facility] Comment on above: Performed By: #### L IPD2, HEMDF, TSH5, CMP3, HA1C2 #### [facility] [address] [place] [address] Glucose [Mass/Vol] 134 mg/dL High 70-100 [facility] Comment on above: Performed By: #### L IPD2, HEMDF, TSH5, CMP3, HA1C2 #### [facility] [address] [place] [address] Anion gap [Moles/Vol] 7 Normal [facility] Comment on above: Performed By: #### L IPD2, HEMDF, TSH5, CMP3, HA1C2 #### [facility] [address] [place] [address] CO2 [Moles/Vol] 26 mmol/L Normal 22-30 [facility] Comment on above: Performed By: #### L IPD2, HEMDF, TSH5, CMP3, HA1C2 #### [facility] [address] [place] [address] Creatinine [Mass/Vol] 0.48 mg/dL Low 0.52-1.25 [facility] Comment on above: Performed By: #### L IPD2, HEMDF, TSH5, CMP3, HA1C2 #### [facility] [address] [place] [address] GFR/1.73 sq M predicted among blacks MDRD (S/P/Bld) [Vol rate/Area] mL/min/{1.73_m2} Normal >60 [facility] Comment on above: Performed By: #### L IPD2, HEMDF, TSH5, CMP3, HA1C2 #### [facility] [address] [place] [address] GFR/1.73 sq M predicted among non-blacks MDRD (S/P/Bld) [Vol rate/Area] 89.8 mL/min/{1.73_m2} Normal >60 [facility] Comment on above: Result Comment: KDIG O guidelines provide the following GFR categories: Stage GFR(ml/min/1.73 m2) Terms G1 >=90 Normal or high G2 60-89 Mildly decreased* G3a 45-59 Mildly to moderately decreased G3b 30-44 Moderately to severely decreased G4 15-29 Severely decreased G5 <15 Kidney failure *Relative to young adult level. In the absence of evidence of kidney damage, neither GFR category G1 nor G2 fulfill the criteria for CKD. The CKD-EPI equation is validated in individuals 18 years of age and older. Currently the best equation for estimating glomerular filtration rate (GFR) from serum creatinine in children is the Bedside Sims equation. It is less accurate in patients with extremes of muscle mass, restriction of dietary protein, ingestion of creatine, extra-renal metabolism of creatinine, or treatment with medications that affect renal tubular creatinine secretion. Performed By: #### L IPD2, HEMDF, TSH5, CMP3, HA1C2 #### [facility] [address] [place] [address] Urea nitrogen [Mass/Vol] 16 mg/dL Normal 7-20 [facility] Comment on above: Performed By: #### L IPD2, HEMDF, TSH5, CMP3, HA1C2 #### [facility] [address] [place] [address] Chloride [Moles/Vol] 108 mmol/L High 98-107 [facility] Comment on above: Performed By: #### L IPD2, HEMDF, TSH5, CMP3, HA1C2 #### [facility] [address] [place] [address] Potassium [Moles/Vol] 3.8 mmol/L Normal 3.5-5.1 [facility] Comment on above: Performed By: #### L IPD2, HEMDF, TSH5, CMP3, HA1C2 #### [facility] [address] [place] [address] Sodium [Moles/Vol] 141 mmol/L Normal 135-145 [facility] Comment on above: Performed By: #### L IPD2, HEMDF, TSH5, CMP3, HA1C2 #### [facility] [address] [place] [address] Glucose,Bedsideon 04-29-2020 Glucose [Mass/Vol] 250 mg/dL High 70-100 [facility] Comment on above: Result Comment: Test performed by glucose meter. Results may be 10%-15% lower than serum/plasma values. (CLIA ID [id number]) Performed By: #### B GLU #### [facility] [address] [place] [address] Glucose [Mass/Vol] 133 mg/dL High 70-100 [facility] Comment on above: Result Comment: Test performed by glucose meter. Results may be 10%-15% lower than serum/plasma values. (CLIA ID [id number]) Performed By: #### L IPD2, HEMDF, TSH5, CMP3, HA1C2 #### [facility] [address] [place] [address] Glucose [Mass/Vol] 136 mg/dL High 70-100 [facility] Comment on above: Result Comment: Test performed by glucose meter. Results may be 10%-15% lower than serum/plasma values. (CLIA ID [id number]) Performed By: #### L IPD2, HEMDF, TSH5, CMP3, HA1C2 #### [facility] [address] [place] [address] Glucose [Mass/Vol] 154 mg/dL High 70-100 [facility] Comment on above: Result Comment: Test performed by glucose meter. Results may be 10%-15% lower than serum/plasma values. (CLIA ID [id number]) Performed By: #### L IPD2, HEMDF, TSH5, CMP3, HA1C2 #### [facility] [address] [place] [address] Hemogramon 04-29-2020 Erythrocyte distribution width (RBC) [Ratio] 13.1 % Normal 11.5-14.5 [facility] Comment on above: Performed By: #### L IPD2, HEMDF, TSH5, CMP3, HA1C2 #### [facility] [address] [place] [address] Hematocrit (Bld) [Volume fraction] 43.7 % Normal 35.0-47.0 [facility] Comment on above: Performed By: #### L IPD2, HEMDF, TSH5, CMP3, HA1C2 #### [facility] [address] [place] [address] Hemoglobin (Bld) [Mass/Vol] 14.3 g/dL Normal 11.7-16.0 [facility] Comment on above: Performed By: #### L IPD2, HEMDF, TSH5, CMP3, HA1C2 #### [facility] [address] [place] [address] MCH (RBC) [Entitic mass] 30.5 pg Normal 26.0-34.0 [facility] Comment on above: Performed By: #### L IPD2, HEMDF, TSH5, CMP3, HA1C2 #### [facility] [address] [place] [address] MCHC (RBC) [Mass/Vol] 32.8 % Normal 32.0-36.0 [facility] Comment on above: Performed By: #### L IPD2, HEMDF, TSH5, CMP3, HA1C2 #### [facility] [address] [place] [address] MCV (RBC) [Entitic vol] 92.9 fL Normal 79.0-98.[address] [facility] Comment on above: Performed By: #### L IPD2, HEMDF, TSH5, CMP3, HA1C2 #### [facility] [address] [place] [address] Platelet mean volume (Bld) [Entitic vol] 7.4 fL Normal 7.4-10.4 [facility] Comment on above: Performed By: #### L IPD2, HEMDF, TSH5, CMP3, HA1C2 #### [facility] [address] [place] [address] Platelets (Bld) [#/Vol] 249 10*3/uL Normal 140-440 [facility] Comment on above: Performed By: #### L IPD2, HEMDF, TSH5, CMP3, HA1C2 #### [facility] [address] [place] [address] RBC (Bld) [#/Vol] 4.70 10*6/uL Normal 3.80-5.20 [facility] Comment on above: Performed By: #### L IPD2, HEMDF, TSH5, CMP3, HA1C2 #### [facility] [address] [place] [address] WBC (Bld) [#/Vol] 8.6 10*3/uL Normal 3.6-10.7 [facility] Comment on above: Performed By: #### L IPD2, HEMDF, TSH5, CMP3, HA1C2 #### [facility] [address] [place] [address] [facility] CK [Catalytic activity/Vol] 62 U/L Normal 30-170 [facility] Comment on above: Performed By: #### L IPD2, HEMDF, TSH5, CMP3, HA1C2 #### [facility] [address] [place] [address] CTA Head/Neck w/ + w/o contr yony 04-28-2020 CTA Head/Neck w/ + w/o contrast Patient Name: RAUDEL AHUMADA CT Exam Date/Time 04/28/2020 00:51:25 EDT Exam CTA Head/Neck w/ + w/o contrast Ordering Physician GREGORIO KONG Accession Number [id number] CPT4 Codes Q9967 (CT ISOVUE [id number]), [id number] (), 13047 () Reason For Exam also read out noncontrast ct of head, due to fall head lac, possible syncope Report CLINICAL INDICATION: Syncope. Fall. Noncontrast CT head CT angiograms of the intracranial vessels CT angiograms of the extracranial vessels TECHNIQUE: Noncontrast imaging between skull base and vertex was obtained with axial, coronal and sagittal images reconstructed. Following this, CT angiogram of the intracranial and extracranial carotid and vertebral vessels was performed following bolus injection of 75 mL Isovue- 370. The CT angiographic studies of the extracranial vessels were post processed by myself on a 3-D workstation with multiple shaded surface display CT angiographic analyses. COMPARISON: Correlation with unenhanced CT of the head on 06/05/2019. FINDINGS: Noncontrast images of the brain show no intraparenchymal or extra-axial hemorrhage. Parenchymal volume loss and periventricular and deep white matter leukomalacia are similar to the prior study. There is no fracture of the calvarium. Hyperostosis of the internal table is present. No fluid is noted in the visualized paranasal sinuses or mastoid air cells. CTA of the intracranial vessels: The right and left anterior, middle and posterior circulations are intact. There is no critical carotid siphon stenosis. There is no evidence of aneurysm. The cerebral venous structures and major dural sinuses appear normal. CTA of the extracranial vessels: There are patent origins of the right and left common carotid arteries, and the right and left vertebral arteries. The right vertebral artery is dominant. There are no stenoses. The right and left cervical vertebral arteries are patent throughout their lengths to the axis loop. There is no dissection or stenosis. Right ICA: 0% The right carotid bifurcation is widely patent, without atherosclerotic plaque. There is no dissection. The external and internal carotid branches are patent. Left ICA: 0% The left carotid bifurcation is widely patent, without atherosclerotic plaque. There is no dissection. The external and internal carotid branches are patent. Note: All measurement above for ICA stenosis are done by utilizing NASCET criteria. Parotid, submandibular and thyroid glands appear normal. There is no cervical lymphadenopathy. Mild degenerative disc change involves C5-C6 and C6-C7. There is moderate facet arthropathy diffusely. IMPRESSION: Noncontrast imaging shows no evidence of acute ischemia or posttraumatic hemorrhage No critical stenoses or vascular occlusions are noted in the intracranial or extracranial carotid systems Report Dictated on Final Dictating Physician: MD HINOJOSA DIANE Signed Date and Time: 04/28/2020 2:34 am Signed by: MD HINOJOSA DIANE Transcribed Date and Time: 04/28/2020 2:35 Normal [facility] Complete Urinalysison 2019 Bacteria LM.HPF (Urine sed) [#/Area] Moderate (6-50) Abnormal Negative [facility] Comment on above: Result Comment: . Performed By: #### B GLU #### [facility] [address] [place] [address] RBC LM.HPF (Urine sed) [#/Area] Negative Normal 0-2 [facility] Comment on above: Result Comment: . Performed By: #### B GLU #### [facility] [address] [place] [address] Squamous Epithelial 3 - 5 Normal 3-5 [facility] Comment on above: Result Comment: . Performed By: #### B GLU #### [facility] [address] [place] [address] VOLUME, URINE 12 ml Normal [facility] Comment on above: Result Comment: . Performed By: #### B GLU #### [facility] [address] [place] [address] WBC LM.HPF (Urine sed) [#/Area] 6 - 10 Abnormal 0-5 [facility] Comment on above: Result Comment: . Performed By: #### B GLU #### [facility] [address] [place] [address] Appearance (U) Clear Normal Clear [facility] Comment on above: Result Comment: . Performed By: #### B GLU #### [facility] [address] [place] [address] Bilirubin,Urine Negative Normal Negative [facility] Comment on above: Result Comment: . Performed By: #### B GLU #### [facility] [address] [place] [address] Color (U) YELLOW Normal Lt. Yellow [facility] Comment on above: Result Comment: . Performed By: #### B GLU #### [facility] [address] [place] [address] Glucose Ql (U) Normal Normal Normal (<70) [facility] Comment on above: Result Comment: . Performed By: #### B GLU #### [facility] [address] [place] [address] Ketone,Urine Trace Abnormal Negative [facility] Comment on above: Result Comment: . Performed By: #### B GLU #### [place] [address] [place] [address] Leukocytes,Urine 250 Philipp/uL Abnormal Negative [facility] Comment on above: Result Comment: . Performed By: #### B GLU #### [place] [address] [place] [address] Nitrites,Urine Negative Normal Negative [facility] Comment on above: Result Comment: . Performed By: #### B GLU #### [place] [address] [place] [address] Occult Blood,Urine Negative Normal Negative [facility] Comment on above: Result Comment: . Performed By: #### B GLU #### [facility] [address] [place] [address] pH (U) 5.5 Normal 5.0-8.0 [facility] Comment on above: Result Comment: . Performed By: #### B GLU #### [facility] [address] [place] [address] Protein (U) [Mass/Vol] 70 mg/dL Abnormal Negative [facility] Comment on above: Result Comment: . Performed By: #### B GLU #### [place] [address] [place] [address] Specific [place],Urine 1.028 Normal 1.005 - 1.030 [facility] Comment on above: Result Comment: . Performed By: #### B GLU #### [facility] [address] [place] [address] Urobilinogen,Urine Normal Normal Normal (0-1) [facility] Comment on above: Result Comment: . Performed By: #### B GLU #### [facility] [address] [place] [address] Echo Complete w/wo Contrasto n 04-28-2020 Echo Complete w/wo Contrast Patient Name: RAUDEL AHUMADA Ultrasound Exam Date/Time 04/28/2020 09:01:04 EDT Exam Echo Complete w/wo Contrast Ordering Physician [id number] Accession Number [id number] Reason For Exam syncope Report TRANSTHORACIC ECHOCARDIOGRAM PATIENT: Raudel Ahumada STUDY DATE: 04/28/2020 : 1935 AGE: 84 HT/WT: 157.5 cm (62 124.7 kg in) (274.4 lb) GENDER: F BP: 143 / 63 LOCATION: [facility] PATIENT Inpatient [facility] STATUS: *ORDERING PHYSICIAN: * Gregorio Sheehan *FELLOW: * Monika De La Torre *READING PHYSICIAN: * Soren *INTERNATIONAL MARKETING COORDINATOR: Mine Madrigal, DO, FSVM, [facility] [address], AE INDICATIONS: SYNCOPE. CONCLUSIONS SUMMARY: 1. Left ventricle: The cavity size is normal. Wall thickness is normal. Systolic function is normal by the biplane method of disks. The estimated ejection fraction is 67%. There are no regional wall motion abnormalities. Doppler parameters are consistent with abnormal left ventricular relaxation (grade 1 diastolic dysfunction). 2. Right ventricle: The cavity size is normal. Systolic function is normal. Right ventricular systolic pressure is within the normal range. 3. Left atrium: The atrium is normal in size. 4. Right atrium: The atrium is normal in size. 5. Mitral valve: Mildly calcified annulus. Mildly thickened leaflets. 6. Aortic valve: There is mild stenosis. There is trivial, less than 1+ regurgitation. The mean systolic gradient is 9 mm Hg. The peak systolic gradient is 16 mm Hg. The valve area by the velocity-time integral method is 2.1 cm^2. 7. Aorta: The aorta is normal. 8. Pericardium, extracardiac: There is no pericardial effusion. STUDY DATA: Complete transthoracic echocardiogram. Procedure: Image quality was adequate. M-mode, complete 2D, complete spectral Doppler, and color flow Doppler images were acquired and archived for permanent storage and are available for subsequent review. Study status: Routine. Patient status: Inpatient. ECG RHYTHM: NSR FINDINGS LEFT VENTRICLE: The cavity size is normal. Wall thickness is normal. Systolic function is normal by the biplane method of disks. The estimated ejection fraction is 67%. There are no regional wall motion abnormalities. Doppler parameters are consistent with abnormal left ventricular relaxation (grade 1 diastolic dysfunction). RIGHT VENTRICLE: The cavity size is normal. Systolic function is normal. Right ventricular systolic pressure is within the normal range. VENTRICULAR SEPTUM: There is no evidence of a ventricular septal defect. LEFT ATRIUM: The atrium is normal in size. RIGHT ATRIUM: The atrium is normal in size. ATRIAL SEPTUM: Color Doppler shows no shunt. MITRAL VALVE: Mildly calcified annulus. Mildly thickened leaflets. Doppler: There is trivial, less than 1+ regurgitation. The peak diastolic gradient is 3 mm Hg. AORTIC VALVE: Trileaflet; moderately calcified leaflets. Thickening. Doppler: There is mild stenosis. There is trivial, less than 1+ regurgitation. Dimensionless index: 0.59. The valve area by the velocity-time integral method is 2.1 cm^2. The valve area index by the velocity-time integral method is 0.8 cm^2/m^2. The mean systolic gradient is 9 mm Hg. The peak systolic gradient is 16 mm Hg. The peak systolic velocity is 2 m/sec. TRICUSPID VALVE: Structurally normal valve. Doppler: There is trivial, less than 1+ regurgitation. PULMONIC VALVE: Structurally normal valve. Doppler: There is trivial, less than 1+ regurgitation. AORTA: The aorta is normal. PULMONARY ARTERY: Main pulmonary artery: Normal. PERICARDIUM: Prominent epicardial fat is present. There is no pericardial effusion. SYSTEMIC VEINS: Inferior vena cava: The vessel is normal. The IVC collapses by greater than 50% with inspiration. Measurements Value 02/03/2019 Reference Aortic root ID 2.8 cm <4.4 Aortic root ID, STJ, ED 2.2 cm 2.0 - 3.2 Aortic root ID/bsa, STJ, (L) 0.9 cm/m^2 1.1 - 1.9 ED Value 02/03/2019 Reference Ascending aorta ID, A-P, 3.3 cm S Ascending aorta ID/bsa, 1.4 cm/m^2 A-P, S Left ventricle Value 02/03/2019 Reference LV ID, ED 4.4 cm 4.5 3.8 - 5.2 LV ID, ES 3.1 cm 3.5 2.2 - 3.5 LV ID/bsa, ED (L) 1.8 cm/m^2 2.3 - 3.1 LV ID/bsa, ES 1.3 cm/m^2 1.3 - 2.1 LV PW thickness, ED (H) 1.1 cm 1.0 0.6 - 0.9 LV PW/LV ID ratio, ED 0.25 LV wall mass (H) 165 g 66 - 150 LV wall mass/bsa 68 g/m^2 44 - 88 Stroke volume/bsa, 1-p 19.7 ml/m^2 A2C LV end-diastolic volume, 83 ml 91 48 - 140 1-p A4C LV end-systolic volume, 27 ml 38 12 - 60 1-p A4C LV end-diastolic volume, 76 ml 46 - 106 2-p LV end-systolic volume, 25 ml 14 - 42 2-p LV ejection fraction, 2-p 67 % 60 54 - 74 LV E/e', lateral 11.8 LV E/e', medial 17.3 LV E/e', average 14 Ventricular septum Value 02/03/2019 Reference IVS thickness, ED (H) 1.1 cm 0.9 0.6 - 0.9 LVOT Value 02/03/2019 Reference LVOT ID, A-P 2.0 cm 2.0 LVOT mean velocity, S 0.9 m/sec 0.5 LVOT peak gradient, S 5 mm Hg 3 Stroke volume (SV), LVOT 87 ml 63 DP Stroke index (SV/bsa), 36 ml/m^2 27 LVOT DP Aortic valve Value 02/03/2019 Reference Aortic valve peak 2 m/sec 1.9 velocity, S Aortic valve mean 1.4 m/sec 1.3 velocity, S Aortic mean gradient, S 9 mm Hg 8 Aortic peak gradient, S 16 mm Hg 14 DI 0.59 0.46 Aortic valve area, VTI 2.1 cm^2 1.5 Aortic valve area/bsa, 0.8 cm^2/m^2 0.6 VTI Left atrium Value 02/03/2019 Reference LA volume/bsa, ES, 2-p 26 ml/m^2 16 - 34 Mitral valve Value 02/03/2019 Reference Mitral E-wave peak 0.8 m/sec velocity Mitral A-wave peak 1.1 m/sec velocity Mitral deceleration time 251 ms Mitral peak gradient, D 3 mm Hg Mitral A-wave duration 171 ms Mitral E/A ratio, peak 0.8 Pulmonary veins Value 02/03/2019 Reference Pulmonary vein A-wave 164 ms reversal duration PVa-MVa duration -7 ms difference Tricuspid valve Value 02/03/2019 Reference Tricuspid regurg peak 1.6 m/sec <=2.8 velocity Tricuspid peak RV-RA 11 mm Hg gradient Right atrium Value 02/03/2019 Reference RA area, ES, A4C 16 cm^2 10 18 Systemic veins Value 02/03/2019 Reference Estimated RAP 3 mm Hg Right ventricle Value 02/03/2019 Reference RV ID, minor axis, ED, 3.2 cm 2.5 - 4.1 A4C base RV ID, minor axis, ED, 2.8 cm 1.9 - 3.5 A4C mid RV pressure, S, DP 14 mm Hg RV s', lateral (H) 14.2 cm/sec 6.0 - 13.4 Legend: (L) and (H) gary values outside specified reference range. Electronically signed by Soren Madrigal DO, FS, [facility] 04/28/2020 11:33 Prior Signatures: Final Dictated: 04/28/2020 11:33 am Dictating Physician: DO MADRIGAL JOSEPH Signed Date and Time: 04/28/2020 11:33 am Signed by: DO MADRIGAL JOSEPH Normal [facility] Glucose,Bedsideon 04-28-2020 Glucose [Mass/Vol] 187 mg/dL High 70-100 [facility] Comment on above: Result Comment: Test performed by glucose meter. Results may be 10%-15% lower than serum/plasma values. (CLIA ID [id number]) Performed By: #### L IPD2, HEMDF, TSH5, CMP3, HA1C2 #### [facility] [address] [place] [address] Glucose [Mass/Vol] 147 mg/dL High 70-100 [facility] Comment on above: Result Comment: Test performed by glucose meter. Results may be 10%-15% lower than serum/plasma values. (CLIA ID [id number]) Performed By: #### L IPD2, HEMDF, TSH5, CMP3, HA1C2 #### [facility] [address] [place] [address] Glucose [Mass/Vol] 189 mg/dL High 70-100 [facility] Comment on above: Result Comment: Test performed by glucose meter. Results may be 10%-15% lower than serum/plasma values. (CLIA ID [id number]) Performed By: #### L IPD2, HEMDF, TSH5, CMP3, HA1C2 #### [facility] [address] [place] [address] Glucose [Mass/Vol] 165 mg/dL High 70-100 [facility] Comment on above: Result Comment: Test performed by glucose meter. Results may be 10%-15% lower than serum/plasma values. (CLIA ID [id number]) Performed By: #### L IPD2, HEMDF, TSH5, CMP3, HA1C2 #### [facility] [address] [place] [address] Glucose [Mass/Vol] 184 mg/dL High 70-100 [facility] Comment on above: Result Comment: Test performed by glucose meter. Results may be 10%-15% lower than serum/plasma values. (CLIA ID [id number]) Performed By: #### L IPD2, HEMDF, TSH5, CMP3, HA1C2 #### [facility] [address] [place] [address] Lipid Panelon 04-28-2020 Cholesterol in HDL [Mass/Vol] 38 mg/dL Low 40-60 [facility] Comment on above: Performed By: #### L IPD2, HEMDF, TSH5, CMP3, HA1C2 #### [facility] [address] [place] [address] Cholesterol.total/Choles terol in HDL [Mass ratio] 5 Normal [facility] Comment on above: Result Comment: Ref Range: < 3 Low Risk for CHD 3-6 Mod Risk for CHD > 6 High Risk for CHD Performed By: #### L IPD2, HEMDF, TSH5, CMP3, HA1C2 #### [facility] [address] [place] [address] Protein [Mass/Vol] 136 mg/dL Abnormal <100 [facility] Comment on above: Performed By: #### L IPD2, HEMDF, TSH5, CMP3, HA1C2 #### [facility] [address] [place] [address] Cholesterol [Mass/Vol] 203 mg/dL Abnormal < 200 [facility] Comment on above: Performed By: #### L IPD2, HEMDF, TSH5, CMP3, HA1C2 #### [facility] [address] [place] [address] Triglyceride [Mass/Vol] 143 mg/dL Normal <150 [facility] Comment on above: Performed By: #### L IPD2, HEMDF, TSH5, CMP3, HA1C2 #### [facility] [address] [place] [address] MRI Brain w/o Contraston MRI Brain w/o Contrast Patient Name: RAUDEL AHUMADA MRI Exam Date/Time 04/28/2020 11:31:44 EDT Exam MRI Brain w/o Contrast Ordering Physician GREGORIO KONG Accession Number [id number] CPT4 Codes 03453 () Reason For Exam syncope x2 Report EXAMINATION: MRI of the brain without contrast. COMPARISON: None. REASON FOR STUDY: Syncope x2. TECHNIQUE: Multiplanar spin-echo T1 and T2-weighted, FLAIR as well as susceptibility and diffusion-weighted images were obtained. FINDINGS: Brain: Ill-defined bilateral periventricular signal alteration are observed. These have no corresponding foci of restricted diffusion. No mass effect is evident. Ventricles And Cisterns: The ventricular system, cisterns and sulci are prominent. There is no shift of midline structures. Extra-Axial Spaces: No extra-axial abnormality is observed. Orbits: The orbits are symmetric and within normal limits. Sinuses: No abnormality identified. Skull: No skull defect is observed. There is no appreciable scalp lesion. Scalp: No significant findings. CONCLUSION(S): 1. No evidence of acute cerebrovascular accident or intracranial hemorrhage. 2. Chronic microangiopathic changes. 3. Cerebral atrophy. Report Dictated on Final Dictating Physician: MD RIDLEY B NELSON Signed Date and Time: 04/28/2020 12:36 pm Signed by: MD RIDLEY B NELSON Transcribed Date and Time: 04/28/2020 12:37 Normal [facility] Troponin Ion 04-28-2020 Troponin I.cardiac [Mass/Vol] 0.018 ng/mL Normal 0.000-0.034 [facility] Comment on above: Result Comment: . Performed By: #### L IPD2, HEMDF, TSH5, CMP3, HA1C2 #### [facility] [address] [place] [address] CR Chest Portableon 04-27-20 20 CR Chest Portable Patient Name: RAUDEL AHUMADA Diagnostic Radiology Exam Date/Time 04/27/2020 21:35:51 EDT Exam CR Chest Portable Ordering Physician HERB HILLMAN Accession Number [id number] CPT4 Codes 33943 () Reason For Exam syncvope Report PORTABLE CHEST: INDICATION: Syncope COMPARISON: 08/30/2017 Obtained at 2127 hours. A single portable AP radiograph of the chest was obtained. The heart is normal in size. The mediastinal silhouette is normal. The lungs are clear. There are no effusions or infiltrates. There is no pleural thickening. Arthritic changes of the spine and shoulders are present. IMPRESSION: No acute process. Report Dictated on Workstation: [id number] Final Dictating Physician: DO LLOYD ALFRED Signed Date and Time: 04/27/2020 9:41 pm Signed by: DO LLOYD ALFRED Transcribed Date and Time: 04/27/2020 9:42 Normal [facility] Comp Metabolic Panelon 04-27 ALP [Catalytic activity/Vol] 113 U/L Normal 38-126 [facility] Comment on above: Performed By: #### B GLU #### [facility] [address] [place] [address] ALT [Catalytic activity/Vol] 18 U/L Normal 0-34 [facility] Comment on above: Result Comment: The ALT test is performed by an updated assay method. Please note that the reference intervals have been changed and are now sex specific. Performed By: #### B GLU #### [facility] [address] [place] [address] AST [Catalytic activity/Vol] 28 U/L Normal 15-46 [facility] Comment on above: Performed By: #### B GLU #### [facility] [address] [place] [address] Calcium [Mass/Vol] 10.2 mg/dL Normal 8.4-10.4 [facility] Comment on above: Performed By: #### B GLU #### [facility] [address] [place] [address] Glucose [Mass/Vol] 138 mg/dL High 70-100 [facility] Comment on above: Performed By: #### B GLU #### [facility] [address] [place] [address] Protein [Mass/Vol] 7.3 g/dL Normal 6.3-8.2 [facility] Comment on above: Performed By: #### B GLU #### [facility] [address] [place] [address] Urea nitrogen [Mass/Vol] 25 mg/dL High 7-20 [facility] Comment on above: Performed By: #### B GLU #### [facility] [address] [place] [address] Anion gap [Moles/Vol] 8 Normal [facility] Comment on above: Performed By: #### B GLU #### [facility] [address] [place] [address] Bilirubin [Mass/Vol] 0.8 mg/dL Normal 0.2-1.3 [facility] Comment on above: Performed By: #### B GLU #### [facility] [address] [place] [address] CO2 [Moles/Vol] 26 mmol/L Normal 22-30 [facility] Comment on above: Performed By: #### B GLU #### [facility] [address] [place] [address] Creatinine [Mass/Vol] 0.51 mg/dL Low 0.52-1.25 [facility] Comment on above: Performed By: #### B GLU #### [facility] [address] [place] [address] GFR/1.73 sq M predicted among blacks MDRD (S/P/Bld) [Vol rate/Area] mL/min/{1.73_m2} Normal >60 [facility] Comment on above: Performed By: #### B GLU #### [facility] [address] [place] [address] GFR/1.73 sq M predicted among non-blacks MDRD (S/P/Bld) [Vol rate/Area] 88.0 mL/min/{1.73_m2} Normal >60 [facility] Comment on above: Result Comment: KDIG O guidelines provide the following GFR categories: Stage GFR(ml/min/1.73 m2) Terms G1 >=90 Normal or high G2 60-89 Mildly decreased* G3a 45-59 Mildly to moderately decreased G3b 30-44 Moderately to severely decreased G4 15-29 Severely decreased G5 <15 Kidney failure *Relative to young adult level. In the absence of evidence of kidney damage, neither GFR category G1 nor G2 fulfill the criteria for CKD. The CKD-EPI equation is validated in individuals 18 years of age and older. Currently the best equation for estimating glomerular filtration rate (GFR) from serum creatinine in children is the Bedside Sims equation. It is less accurate in patients with extremes of muscle mass, restriction of dietary protein, ingestion of creatine, extra-renal metabolism of creatinine, or treatment with medications that affect renal tubular creatinine secretion. Performed By: #### B GLU #### [facility] [address] [place] [address] Albumin [Mass/Vol] 4.2 g/dL Normal 3.5-5.0 [facility] Comment on above: Performed By: #### B GLU #### [facility] [address] [place] [address] Potassium [Moles/Vol] 3.9 mmol/L Normal 3.5-5.1 [facility] Comment on above: Performed By: #### B GLU #### [facility] [address] [place] [address] Chloride [Moles/Vol] 106 mmol/L Normal 98-107 [facility] Comment on above: Performed By: #### B GLU #### [facility] [address] [place] [address] Sodium [Moles/Vol] 140 mmol/L Normal 135-145 [facility] Comment on above: Performed By: #### B GLU #### [facility] [address] [place] [address] ED Provider Noteon 0 ED Provider Note SHB 4S TELEMETRY eMERGENCY dEPARTMENT eNCOUnter Pt Name: Raudel Ahumada Birthdate 1935 Date of evaluation: 04/27/2020 Provider: Herb Moreno MD CHIEF COMPLAINT Chief Complaint Patient presents with ? Fall patietn states trip/fall over own feet, patietn states left leg doesnt work well". ? Head Laceration 2.5cm posterior head laceration. Patient denies LOC. HISTORY OF PRESENT ILLNESS (Location/Symptom, Timing/Onset,Context /Setting, Quality, Duration, Modifying Factors, Severity) Note limiting factors. Patient is 84-year-old white female living alone who had an episode of falling near a table at home and lacerated her occiput on her scalp. Patient went to the kitchen apparently and tried to rinse out the laceration and fell onto the floor in the kitchen after doing so. Patient is unsure if she lost consciousness. She does not think she did but she is unsure. Patient's daughter says he is also unsure she lives alone and was not [place] falls were unwitnessed. Patient is a diabetic but denies any issues with her blood sugars. Patient noticed that her short-term memory is not as good as it used to be and her daughter corroborates this fact. Raudel Ahumada is a 84 y.o. female who presents to the emergency department Nursing Notes were reviewed. REVIEW OF SYSTEMS (2+ forlevel 4; 10+ for level 5) Review of Systems Constitutional: Negative. HENT: Negative. Eyes: Negative. Respiratory: Negative. Negative for apnea, cough, choking, chest tightness and shortness of breath. Cardiovascular: Negative. Negative for chest pain and leg swelling. Gastrointestinal: Negative. Endocrine: Negative. Genitourinary: Negative. Musculoskeletal: Negative. Negative for joint swelling. Skin: Negative. Allergic/Immunologic : Negative. Neurological: Positive for weakness. Hematological: Negative. Psychiatric/Behavior al: Negative. All other systems reviewed and are negative. PAST MEDICAL HISTORY Past Medical History: Diagnosis Date ? Allergic rhinitis ? Anxiety ? Asthma ? Diabetes (HCC) ? GERD (gastroesophageal reflux disease) ? Headache ? Hyperlipidemia ? Hypertension ? Hypothyroidism ? Pneumonia ? Shingles ? Stomach ulcer ? Water retention SURGICALHISTORY Past Surgical History: Procedure Laterality Date ? CHOLECYSTECTOMY ? DILATION AND CURETTAGE OF UTERUS x2 ? HYSTERECTOMY ? TONSILLECTOMY CURRENT MEDICATIONS Discharge Medication List as of 04/30/2020 3:29 PM CONTINUE these medications which have NOT CHANGED Details gabapentin (NEURONTIN) 100 MG capsule TAKE 1 CAPSULE BY MOUTH EVERY DAY, Disp-90 capsule,R-1Normal citalopram (CELEXA) 20 MG tablet TAKE 1 TABLET BY MOUTH EVERY DAY, Disp-90 tablet,R-1DX Code Needed .Normal levothyroxine (SYNTHROID) 100 MCG tablet TAKE 1 TABLET BY MOUTH EVERY DAY, Disp-90 tablet,R-1Normal !! Handicap [facility] Starting Sat04/09/2019, Disp-1 each, R-0, PrintDX arthritis 5 years !! Handicap [facility] Starting Sat04/08/2019, Disp-1 each, R-0, PrintDX arthritis 5 years B [id number] (VITAMIN B50 COMPLEX PO) Take by mouthHistorical Med VITAMIN E PO Take by mouth Indications: 2000units dailyHistorical Med Multiple Vitamins-Minerals (MULTIVITAMIN ADULT PO) Take by mouthHistorical Med !! Handicap [facility] Starting Sat12/31/2018, Disp-1 each, R-0, PrintDX Arthritis 5 years Lancets [facility] Disp-100 each, R-3, PrintDx E11.9 TEST ONCE DAILY PATIENT USES [employer] Glucose Blood (BLOOD GLUCOSE TEST STRIPS) STRP Test daily fasting dx Dispense as covered by PT insurance, Disp-100 strip, R-0Print !! - Potential duplicate medications found. Please discuss with provider. ALLERGIES Adhesive tape; Pcn [penicillins]; and Sulfa antibiotics FAMILY HISTORY Family History Problem Relation Age of Onset ? Heart Disease Mother ? Stroke Mother ? Diabetes Mother ? Heart Disease Father ? Cancer Brother ? Heart Disease Brother ? Diabetes Brother ? Stroke Brother ? Coronary Art Dis Brother SOCIAL HISTORY Social History Socioeconomic History ? Marital status: Single Spouse name: None ? Number of children: None ? Years of education: None ? Highest education level: None Occupational History ? None Social Needs ? Financial resource strain: None ? Food insecurity Worry: None Inability: None ? Transportation needs Medical: None Non-medical: None Tobacco Use ? Smoking status: Former Smoker ? Smokeless tobacco: Never Used Substance and Sexual Activity ? Alcohol use: No ? Drug use: No ? Sexual activity: None Lifestyle ? Physical activity Days per week: None Minutes per session: None ? Stress: None Relationships ? Social connections Talks on phone: None Gets together: None Attends sikh service: None Active member of club or organization: None Attends meetings of clubs or organizations: None Relationship status: None ? Intimate partner violence Fear of current or ex partner: None Emotionally abused: None Physically abused: None Forced sexual activity: None Other Topics Concern ? None Social History Narrative ? None SCREENINGS NIH Stroke Scale Interval: Baseline Level of Consciousness (1a. ): Alert LOC Questions (1b. ): Answers both correctly LOC Commands (1c. ): Performs both tasks correctly Best Gaze (2. ): Normal Visual (3. ): No visual loss Facial Palsy (4. ): Normal symmetrical movement Motor Arm, Left (5a. ): No drift Motor Arm, Right (5b. ): No drift Motor Leg, Left (6a. ): Some effort against gravity Motor Leg, Right (6b. ): Some effort against gravity Limb Ataxia (7. ): Absent Sensory (8. ): Normal Best Language (9. ): No aphasia Dysarthria (10. ): Normal Extinction and Inattention (11): No abnormality Total: 4Glasgow Coma Scale Eye Opening: Spontaneous Best Verbal Response: Oriented Best Motor Response: Obeys commands [place] Coma Scale Score: 15 PHYSICAL EXAM (5+ for level 4, 8+ for level 5) ED Triage Vitals [04/27/202034] BP Temp Temp Source Pulse Resp SpO2 Height Weight (!) 141/60 98.6 ?F (37 ?C) Oral 84 16 92 % -- -- Physical Exam Vitals signs and nursing note reviewed. Constitutional: Appearance: She is well-developed. She is obese. HENT: Head: Normocephalic. Comments: Patient has a 2-1/2 cm laceration to the occipital scalp posterior to the vertex. Is no palpable step-off or skull fracture. Nose: Nose normal. Eyes: Pupils: Pupils are equal, round, and reactive to light. Neck: Musculoskeletal: Neck supple. Cardiovascular: Rate and Rhythm: Normal rate and regular rhythm. Heart sounds: Normal heart sounds. Pulmonary: Effort: Pulmonary effort is normal. Breath sounds: Normal breath sounds. Abdominal: General: Bowel sounds are normal. There is no distension. Palpations: Abdomen is soft. Tenderness: There is no abdominal tenderness. Musculoskeletal: Normal range of motion. Skin: General: Skin is warm and dry. Capillary Refill: Capillary refill takes less than 2 seconds. Findings: No erythema or rash. Neurological: Mental Status: She is alert and oriented to person, place, and time. Cranial Nerves: No cranial nerve deficit. Comments: Patient has impaired short-term memory and some symmetric weakness of both legs. No focal weakness Psychiatric: Behavior: Behavior normal. Thought Content: Thought content normal. Judgment: Judgment normal. DIAGNOSTIC RESULTS Interpretation per the Radiologist below, if available at the time of this note: No results found. LABS: Labs Reviewed COMPREHENSIVE METABOLIC PANEL - Abnormal; Notable for the following components: Result Value Glucose 138 (*) BUN 25 (*) CREATININE 0.51 (*) All other components within normal limits Narrative: Test Performed by [employer] [facility], [address] , [place] [address] CBC WITH AUTO DIFFERENTIAL - Abnormal; Notable for the following components: Absolute Neut # 7.1 (*) All other components within normal limits Narrative: Test Performed by [facility], [address] , [place] [address] URINALYSIS - Abnormal; Notable for the following components: Total Protein, Urine 70 (*) Ketones, Urine Trace (*) LEUKOCYTES, UA 250 (*) WBC, UA 6-10 (*) Bacteria, UA Moderate (6-50) (*) All other components within normal limits Narrative: Test Performed by [facility], [address] , [place] [address] LIPID PANEL - Abnormal; Notable for the following components: Cholesterol 203 (*) HDL 38 (*) LDL Cholesterol 136 (*) All other components within normal limits Narrative: Test Performed by [facility], [address], [place], [place] [address] BASIC METABOLIC PANEL - Abnormal; Notable for the following components: Chloride 108 (*) Glucose 134 (*) CREATININE 0.48 (*) All other components within normal limits Narrative: Test Performed by [facility], [address] [place], [place] [address] POCT GLUCOSE - Abnormal; Notable for the following components: POC Glucose 184 (*) All other components within normal limits Narrative: [facility]formed by [facility], [address] [place], [place] [address] POCT GLUCOSE - Abnormal; Notable for the following components: POC Glucose 165 (*) All other components within normal limits Narrative: Test Performed by [facility], [address] [place], [place], [place] [address] POCT GLUCOSE - Abnormal; Notable for the following components: POC Glucose 189 (*) All other components within normal limits Narrative: Test Performed by [facility], [address] [place], [place] [address] POCT GLUCOSE - Abnormal; Notable for the following components: POC Glucose 147 (*) All other components within normal limits Narrative: Test Performed by [facility], [address] [place], [place] [address] POCT GLUCOSE - Abnormal; Notable for the following components: POC Glucose 187 (*) All other components within normal limits Narrative: Test Performed by [facility], [address] [place], [place] [address] POCT GLUCOSE - Abnormal; Notable for the following components: POC Glucose 154 (*) All other components within normal limits Narrative: Test Performed by [facility], [address] [place], [place], [place] [address] POCT GLUCOSE - Abnormal; Notable for the following components: POC Glucose 136 (*) All other components within normal limits Narrative: Test Performed by [facility], [address] [place], [place] [address] POCT GLUCOSE - Abnormal; Notable for the following components: POC Glucose 133 (*) All other components within normal limits Narrative: Test Performed by [facility], [address] [place], [place] [address] POCT GLUCOSE - Abnormal; Notable for the following components: POC Glucose 250 (*) All other components within normal limits Narrative: Test Performed by [facility], [address] [place], [place] [address] POCT GLUCOSE - Abnormal; Notable for the following components: POC Glucose 137 (*) All other components within normal limits Narrative: Test Performed by [facility], [address] [place], [place] [address] POCT GLUCOSE - Abnormal; Notable for the following components: POC Glucose 131 (*) All other components within normal limits Narrative: Test Performed by [facility], [address], [place], [place] [address] BRAIN NATRIURETIC PEPTIDE Narrative: Test Performed by [facility], [address] , [place], [place] [address] LIPASE Narrative: Test Performed by [facility], [address] , [place], [place] [address] MAGNESIUM Narrative: Test Performed by [facility], [address] , [place], [place] [address] TROPONIN Narrative: Test Performed by [facility], [address] , [place], [place] [address] CK Narrative: Test Performed by [facility], [address], [place], [place] [address] TROPONIN Narrative: Test Performed by [facility], [address], [place], [place] [address] CBC Narrative: Test Performed by [facility], [address], [place], [place] [address] COVID-19 Narrative: Test Performed by [facility], [address] [place] [id number] Specimen Source Comment:Nasopharynge al Swab POCT GLUCOSE POCT GLUCOSE POCT GLUCOSE POCT GLUCOSE POCT GLUCOSE POCT GLUCOSE POCT GLUCOSE POCT GLUCOSE POCT GLUCOSE POCT GLUCOSE All other labs were within normal range or not returned as of this dictation. EMERGENCY DEPARTMENT COURSE and DIFFERENTIALDIAGNOSI S/MDM: Vitals: Vitals: 04/30/20 0341 04/30/20 0727 04/30/20 1138 04/30/20 1509 BP: (!) 143/59 (!) 147/86 (!) 159/74 137/65 Pulse: 65 69 67 74 Resp: 18 16 16 16 Temp: 99.2 ?F (37.3 ?C) 98.4 ?F (36.9 ?C) 98 ?F (36.7 ?C) 98.2 ?F (36.8 ?C) TempSrc: Temporal Temporal Temporal Temporal SpO2: 96% 91% 93% 93% Weight: Medications diphenhydrAMINE (BENADRYL) injection 25 mg (has no administration in time range) EPINEPHrine PF 1 MG/ML injection 0.3 mg (has no administration in time range) 0.9 % sodium chloride bolus (0 mLs Intravenous Stopped 04/27/202145) acetaminophen (TYLENOL) tablet 1,000 mg (1,000 mg Oral Given 04/27/202114) iopamidol (ISOVUE-370) 76 % injection 75 mL (75 mLs Intravenous Given 04/28/20 0036) MDM Number of Diagnoses or Management Options Injury of head, initial encounter: Laceration of scalp, initial encounter: Syncope and collapse: Diagnosis management comments: Syncope and collapse scalp laceration dementia obesity possible dehydration possible urinary tract infection possible hypoglycemia. Amount and/or Complexity of Data Reviewed Clinical lab tests: ordered and reviewed Tests in the radiology section of CPT?: ordered and reviewed Risk of Complications, Morbidity, and/or Mortality Presenting problems: high Diagnostic procedures: high Management options: high General comments: Patient had a small bolus of fluid she seemed to feel stable. Patient's laceration to her scalp was stapled without incident. Patient remained lucid the entire visit. Patient did appear somewhat weak and we will be admitting her to the hospital for observation on telemetry. . CONSULTS: IP CONSULT TO HOME CARE NEEDS PROCEDURES: Unless otherwise noted below, none Lac Repair Date/Time: 04/27/2020 10:06 PM Performed by: Herb Moreno MD Authorized by: Herb Moreno MD Consent: Consent obtained: Verbal Consent given by: Patient Risks discussed: Infection, pain, poor cosmetic result, need for additional repair, poor wound healing and nerve damage Alternatives discussed: No treatment, delayed treatment, observation and referral Risco protocol: Procedure explained and questions answered to patient or proxy's satisfaction: yes Patient identity confirmed: Verbally with patient Anesthesia (see MAR for exact dosages): Anesthesia method: Local infiltration Local anesthetic: Lidocaine 1% w/o epi Laceration details: Location: Scalp Length (cm): 3 Depth (mm): 5 Repair type: Repair type: Simple Exploration: Hemostasis achieved with: Direct pressure Contaminated: no Treatment: Area cleansed with: Taniya Amount of cleaning: Standard Irrigation solution: Sterile saline Irrigation method: Pressure wash Skin repair: Repair method: Fenton Number of leonid: 8 Approximation: Approximation: Close Post-procedure details: Dressing: Open (no dressing) Patient tolerance of procedure: Tolerated well, no immediate complications FINAL IMPRESSION 1. Syncope and collapse 2. Injury of head, initial encounter 3. Laceration of scalp, initial encounter DISPOSITION/PLAN DISPOSITION Admitted 04/27/2020 10:01:51 PM PATIENT REFERRED TO: Maida Doshi MD [address] [place], [place] [id number] DISCHARGE MEDICATIONS: Discharge Medication List as of 04/30/2020 3:29 PM (Please note: Portions of this note were completed with a voice recognition program. Efforts were made to edit thedictations but occasionally words and phrases are mis-transcribed.) Form [id number] Herb Moreno MD (electronically signed) Emergency Medicine Provider Herb Moreno MD 04/27/20 2209 Herb Moreno MD 05/05/20 1759 Herb Moreno MD 05/05/20 1800 Herb Moreno MD 05/30/20 1724 Herb Moreno MD 05/30/20 1739 Herb Moreno MD 05/30/20 1742 Herb Moreno MD 06/01/202037 Normal [facility] Hemogram w/ Autodiffon 04-27 Abs Baso Cnt 0.1 10*3/uL Normal 0.0-0.2 [facility] Comment on above: Performed By: #### B GLU #### [facility] [address] [place] [address] Abs Neutrophile Cnt 7.1 10*3/uL High 1.8-7.0 [facility] Comment on above: Performed By: #### B GLU #### [facility] [address] [place] [address] Basophils/100 WBC (Bld) 1.2 % Normal 0.0-2.0 [facility] Comment on above: Performed By: #### B GLU #### [facility] [address] [place] [address] Eosinophils (Bld) [#/Vol] 0.2 10*3/uL Normal 0.0-0.5 [facility] Comment on above: Performed By: #### B GLU #### [facility] [address] [place] [address] Eosinophils/100 WBC (Bld) 2.4 % Normal 1.0-6.0 [facility] Comment on above: Performed By: #### B GLU #### [facility] [address] [place] [address] Erythrocyte distribution width (RBC) [Ratio] 13.2 % Normal 11.5-14.5 [facility] Comment on above: Performed By: #### B GLU #### [facility] [address] [place] [address] Granulocytes/100 WBC (Bld) 69.0 % Normal 40.0-80.0 [facility] Comment on above: Performed By: #### B GLU #### [facility] [address] [place] [address] Hematocrit (Bld) [Volume fraction] 45.6 % Normal 35.0-47.0 [facility] Comment on above: Performed By: #### B GLU #### [facility] [address] [place] [address] Hemoglobin (Bld) [Mass/Vol] 15.7 g/dL Normal 11.7-16.0 [facility] Comment on above: Performed By: #### B GLU #### [facility] [address] [place] [address] Lymphocytes (Bld) [#/Vol] 2.3 10*3/uL Normal 1.0-4.3 [facility] Comment on above: Performed By: #### B GLU #### [facility] [address] [place] [address] Lymphocytes/100 WBC (Bld) 21.8 % Normal 20.0-40.0 [facility] Comment on above: Performed By: #### B GLU #### [facility] [address] [place] [address] MCH (RBC) [Entitic mass] 31.5 pg Normal 26.0-34.0 [facility] Comment on above: Performed By: #### B GLU #### [facility] [address] [place] [address] MCHC (RBC) [Mass/Vol] 34.4 % Normal 32.0-36.0 [facility] Comment on above: Performed By: #### B GLU #### [facility] [address] [place] [address] MCV (RBC) [Entitic vol] 91.6 fL Normal 79.0-98.0 [facility] Comment on above: Performed By: #### B GLU #### [facility] [address] [place] [address] Monocytes (Bld) [#/Vol] 0.6 10*3/uL Normal 0.0-0.8 [facility] Comment on above: Performed By: #### B GLU #### [facility] [address] [place] [address] Monocytes/100 WBC (Bld) 5.6 % Normal 2.0-10.0 [facility] Comment on above: Performed By: #### B GLU #### [facility] [address] [place] [address] Platelet mean volume (Bld) [Entitic vol] 7.5 fL Normal 7.4-10.4 [facility] Comment on above: Performed By: #### B GLU #### [facility] [address] [place] [address] Platelets (Bld) [#/Vol] 286 10*3/uL Normal 140-440 [facility] Comment on above: Performed By: #### B GLU #### [facility] [address] [place] [address] RBC (Bld) [#/Vol] 4.98 10*6/uL Normal 3.80-5.20 [facility] Comment on above: Performed By: #### B GLU #### [facility] [address] [place] [address] WBC (Bld) [#/Vol] 10.4 10*3/uL Normal 3.6-10.7 [facility] Comment on above: Performed By: #### B GLU #### [facility] [address] [place] [address] Lipaseon 04-27-2020 Lipase [Catalytic activity/Vol] 75 U/L Normal 23-300 [facility] Comment on above: Performed By: #### B GLU #### [facility] [address] [place] [address] Magnesiumon 04-27-2020 Magnesium [Mass/Vol] 1.6 mg/dL Normal 1.6-2.3 [facility] Comment on above: Performed By: #### B GLU #### [facility] [address] [place] [address] NT pro BNPon 04-27-2020 Natriuretic peptide B (Bld) [Mass/Vol] 212 pg/mL Normal 0-450 [facility] Comment on above: Performed By: #### B GLU #### [facility] [address] [place] [address] Troponin Ion 04-27-2020 Troponin I.cardiac [Mass/Vol] ng/mL Normal 0.000-0.034 [facility] Comment on above: Result Comment: . Performed By: #### B GLU #### [facility] [address] [place] [address] CBC Auto Differentialon 01-10 Absolute Baso # 0.1 10*3/uL 0 - 0.2 10*3/uL [place] Absolute Neut # 5.1 10*3/uL 1.8 - 7 10*3/uL [place] Basophils/100 WBC (Bld) 1.2 % 0 - 2 % [place] Eosinophils (Bld) [#/Vol] 0.3 10*3/uL 0 - 0.5 10*3/uL [place] Eosinophils/100 WBC (Bld) 3.7 % 1 - 6 % [place] Erythrocyte distribution width (RBC) [Ratio] 12.9 % 11.5 - 14.5 % [place] Granulocytes/100 WBC (Bld) 54.5 % 40 - 80 % [place] Hematocrit (Bld) [Volume fraction] 42.9 % 35 - 47 % [place] Hemoglobin (Bld) [Mass/Vol] 14.6 g/dL 11.7 - 16 g/dL [place] Lymphocytes (Bld) [#/Vol] 3.2 10*3/uL 1 - 4.3 10*3/uL [place] Lymphocytes/100 WBC (Bld) 33.8 % 20 - 40 % [place] MCH (RBC) [Entitic mass] 31.9 pg 26 - 34 pg [place] MCHC (RBC) [Mass/Vol] 34.2 % 32 - 36 % [place] MCV (RBC) [Entitic vol] 93.3 fL 79 - 98 fL [place] Monocytes (Bld) [#/Vol] 0.6 10*3/uL 0 - 0.8 10*3/uL [place] Monocytes/100 WBC (Bld) 6.8 % 2 - 10 % [place] Platelet mean volume (Bld) [Entitic vol] 7.7 fL 7.4 - 10.4 fL [place] Platelets (Bld) [#/Vol] 318 10*3/uL 140 - 440 10*3/uL [place] RBC (Bld) [#/Vol] 4.59 10*6/uL 3.8 - 5.2 10*6/uL [place] WBC (Bld) [#/Vol] 9.4 10*3/uL 3.6 - 10.7 10*3/uL [place] Test Performed by [facility], [address] , [place], [place] [id number] [place] [address] Comp Metabolic Panelon 01-19 ALP [Catalytic activity/Vol] 97 U/L Normal 38-126 [facility] Comment on above: Performed By: #### L IPD2, HEMDF, CMP3, HA1C2, TSH5 #### [facility] [address] [place] [address] ALT [Catalytic activity/Vol] 20 U/L Normal 0-34 [facility] Comment on above: Result Comment: The ALT test is performed by an updated assay method. Please note that the reference intervals have been changed and are now sex specific. Performed By: #### L IPD2, HEMDF, CMP3, HA1C2, TSH5 #### [facility] [address] [place] [address] Calcium [Mass/Vol] 9.9 mg/dL Normal 8.4-10.4 [facility] Comment on above: Performed By: #### L IPD2, HEMDF, CMP3, HA1C2, TSH5 #### [facility] [address] [place] [address] Glucose [Mass/Vol] 121 mg/dL High 70-100 [facility] Comment on above: Performed By: #### L IPD2, HEMDF, CMP3, HA1C2, TSH5 #### [facility] [address] [place] [address] Anion gap [Moles/Vol] 10 Normal [facility] Comment on above: Performed By: #### L IPD2, HEMDF, CMP3, HA1C2, TSH5 #### [facility] [address] [place] [address] AST [Catalytic activity/Vol] 24 U/L Normal 15-46 [facility] Comment on above: Performed By: #### L IPD2, HEMDF, CMP3, HA1C2, TSH5 #### [facility] [address] [place] [address] Bilirubin [Mass/Vol] 1.1 mg/dL Normal 0.2-1.3 [facility] Comment on above: Performed By: #### L IPD2, HEMDF, CMP3, HA1C2, TSH5 #### [facility] [address] [place] [address] CO2 [Moles/Vol] 26 mmol/L Normal 22-30 [facility] Comment on above: Performed By: #### L IPD2, HEMDF, CMP3, HA1C2, TSH5 #### [facility] [address] [place] [address] Creatinine [Mass/Vol] 0.69 mg/dL Normal 0.52-1.25 [facility] Comment on above: Performed By: #### L IPD2, HEMDF, CMP3, HA1C2, TSH5 #### [facility] [address] [place] [address] GFR/1.73 sq M predicted among blacks MDRD (S/P/Bld) [Vol rate/Area] mL/min/{1.73_m2} Normal >60 [facility] Comment on above: Performed By: #### L IPD2, HEMDF, CMP3, HA1C2, TSH5 #### [facility] [address] [place] [address] GFR/1.73 sq M predicted among non-blacks MDRD (S/P/Bld) [Vol rate/Area] 79.8 mL/min/{1.73_m2} Normal >60 [facility] Comment on above: Result Comment: KDIG O guidelines provide the following GFR categories: Stage GFR(ml/min/1.73 m2) Terms G1 >=90 Normal or high G2 60-89 Mildly decreased* G3a 45-59 Mildly to moderately decreased G3b 30-44 Moderately to severely decreased G4 15-29 Severely decreased G5 <15 Kidney failure *Relative to young adult level. In the absence of evidence of kidney damage, neither GFR category G1 nor G2 fulfill the criteria for CKD. The CKD-EPI equation is validated in individuals 18 years of age and older. Currently the best equation for estimating glomerular filtration rate (GFR) from serum creatinine in children is the Bedside Sims equation. It is less accurate in patients with extremes of muscle mass, restriction of dietary protein, ingestion of creatine, extra-renal metabolism of creatinine, or treatment with medications that affect renal tubular creatinine secretion. Performed By: #### L IPD2, HEMDF, CMP3, HA1C2, TSH5 #### [facility] [address] [place] [address] Protein [Mass/Vol] 7.1 g/dL Normal 6.3-8.2 [facility] Comment on above: Performed By: #### L IPD2, HEMDF, CMP3, HA1C2, TSH5 #### [facility] [address] [place] [address] Urea nitrogen [Mass/Vol] 20 mg/dL Normal 7-20 [facility] Comment on above: Performed By: #### L IPD2, HEMDF, CMP3, HA1C2, TSH5 #### [facility] [address] [place] [address] Chloride [Moles/Vol] 104 mmol/L Normal 98-107 [facility] Comment on above: Performed By: #### L IPD2, HEMDF, CMP3, HA1C2, TSH5 #### [facility] [address] [place] [address] Potassium [Moles/Vol] 4.2 mmol/L Normal 3.5-5.1 [facility] Comment on above: Performed By: #### L IPD2, HEMDF, CMP3, HA1C2, TSH5 #### [facility] [address] [place] [address] Sodium [Moles/Vol] 140 mmol/L Normal 135-145 [facility] Comment on above: Performed By: #### L IPD2, HEMDF, CMP3, HA1C2, TSH5 #### [facility] [address] [place] [address] Albumin [Mass/Vol] 4.1 g/dL Normal 3.5-5.0 [facility] Comment on above: Performed By: #### L IPD2, HEMDF, CMP3, HA1C2, TSH5 #### [facility] [address] [place] [address] Comprehensive Metabolic Pane denny 01-20-2020 Albumin [Mass/Vol] 4.1 g/dL 3.5 - 5 g/dL [place] ALP [Catalytic activity/Vol] 97 U/L 38 - 126 U/L [place] ALT [Catalytic activity/Vol] 20 U/L 0 - 34 U/L [place] Comment on above: The ALT test is perf ormed by an updated assay method. Please note that the reference intervals have been changed and are now sex specific. Anion gap [Moles/Vol] 10 mmol/L [place] AST [Catalytic activity/Vol] 24 U/L 15 - 46 U/L [place] Bilirubin Ql (U) 1.1 mg/dL 0.2 - 1.3 mg/dL [place] Calcium [Mass/Vol] 9.9 mg/dL 8.4 - 10. 4 mg/dL [place] Chloride [Moles/Vol] 104 mmol/L 98 - 10 7 mmol/L [place] CO2 [Moles/Vol] 26 mmol/L 22 - 30 mmol/L [place] Creatinine [Mass/Vol] 0.69 mg/dL 0.52 - 1.25 mg/dL [place] EGFR IF NonAfrican [place] 79.8 mL/min >60 [place] Comment on above: KDIGO guidelines pro vide the following GFR categories: Stage GFR(ml/min/1.73 m2) Terms G1 >=90 Normal or high G2 60-89 Mildly decreased* G3a 45-59 Mildly to moderately decreased G3b 30-44 Moderately to severely decreased G4 15-29 Severely decreased G5 <15 Kidney failure *Relative to young adult level. In the absence of evidence of kidney damage, neither GFR category G1 nor G2 fulfill the criteria for CKD. The CKD-EPI equation is validated in individuals 18 years of age and older. Currently the best equation for estimating glomerular filtration rate (GFR) from serum creatinine in children is the Bedside Sims equation. It is less accurate in patients with extremes of muscle mass, restriction of dietary protein, ingestion of creatine, extra-renal metabolism of creatinine, or treatment with medications that affect renal tubular creatinine secretion. GFR/1.73 sq M predicted among blacks MDRD (S/P/Bld) [Vol rate/Area] mL/min/{1.73_m2} >60 mL/min [place] Glucose [Mass/Vol] 121 mg/dL High 70 - 100 mg/dL [place] Potassium [Moles/Vol] 4.2 mmol/L 3.5 - 5.1 mmol/L [place] Protein [Mass/Vol] 7.1 g/dL 6.3 - 8.2 g/dL [place] Sodium [Moles/Vol] 140 mmol/L 135 - 145 mmol/L [place] Urea nitrogen [Mass/Vol] 20 mg/dL 7 - 20 mg/d L [place] Hemoglobin A1Con 01-20-2020 HbA1c (Bld) [Mass fraction] 7.6 % High 4.0-5.7 [facility] Comment on above: Result Comment: --Hg bA1C levels may not be accurate in patients who have renal disease, received recent blood transfusions, are anemic, or who have dyshemoglobinemia. Performed By: #### L IPD2, HEMDF, CMP3, HA1C2, TSH5 #### [facility] [address] [place] [address] HbA1c (Bld) [Mass fraction] 171 mg/dL Normal [facility] Comment on above: Performed By: #### L IPD2, HEMDF, CMP3, HA1C2, TSH5 #### [facility] [address] [place] [address] eAG 171 mg/dL [place] HbA1c (Bld) [Mass fraction] 7.6 % High 4 - 5.7 % [place] Comment on above: --HgbA1C levels may not be accurate in patients who have renal disease, received recent blood transfusions, are anemic, or who have dyshemoglobinemia. Interpretation and review of laboratory results Abnormal [place] Test Performed by [facility], [address] , [place], [place] [id number] [place] [address] Hemogram w/ Autodiffon 01-19 Abs Baso Cnt 0.1 10*3/uL Normal 0.0-0.2 [facility] Comment on above: Performed By: #### L IPD2, HEMDF, CMP3, HA1C2, TSH5 #### [facility] [address] [place] [address] Abs Neutrophile Cnt 5.1 10*3/uL Normal 1.8-7.0 [facility] Comment on above: Performed By: #### L IPD2, HEMDF, CMP3, HA1C2, TSH5 #### [facility] [address] [place] [address] Basophils/100 WBC (Bld) 1.2 % Normal 0.0-2.0 [facility] Comment on above: Performed By: #### L IPD2, HEMDF, CMP3, HA1C2, TSH5 #### [facility] [address] [place] [address] Eosinophils (Bld) [#/Vol] 0.3 10*3/uL Normal 0.0-0.5 [facility] Comment on above: Performed By: #### L IPD2, HEMDF, CMP3, HA1C2, TSH5 #### [facility] [address] [place] [address] Eosinophils/100 WBC (Bld) 3.7 % Normal 1.0-6.0 [facility] Comment on above: Performed By: #### L IPD2, HEMDF, CMP3, HA1C2, TSH5 #### [facility] [address] [place] [address] Erythrocyte distribution width (RBC) [Ratio] 12.9 % Normal 11.5-14.5 [facility] Comment on above: Performed By: #### L IPD2, HEMDF, CMP3, HA1C2, TSH5 #### [facility] [address] [place] [address] Granulocytes/100 WBC (Bld) 54.5 % Normal 40.0-80.0 [facility] Comment on above: Performed By: #### L IPD2, HEMDF, CMP3, HA1C2, TSH5 #### [facility] [address] [place] [address] Hematocrit (Bld) [Volume fraction] 42.9 % Normal 35.0-47.0 [facility] Comment on above: Performed By: #### L IPD2, HEMDF, CMP3, HA1C2, TSH5 #### [facility] [address] [place] [address] Hemoglobin (Bld) [Mass/Vol] 14.6 g/dL Normal 11.7-16.0 [facility] Comment on above: Performed By: #### L IPD2, HEMDF, CMP3, HA1C2, TSH5 #### [facility] [address] [place] [address] Lymphocytes (Bld) [#/Vol] 3.2 10*3/uL Normal 1.0-4.3 [facility] Comment on above: Performed By: #### L IPD2, HEMDF, CMP3, HA1C2, TSH5 #### [facility] [address] [place] [address] Lymphocytes/100 WBC (Bld) 33.8 % Normal 20.0-40.0 [facility] Comment on above: Performed By: #### L IPD2, HEMDF, CMP3, HA1C2, TSH5 #### [facility] [address] [place] [address] MCH (RBC) [Entitic mass] 31.9 pg Normal 26.0-34.0 [facility] Comment on above: Performed By: #### L IPD2, HEMDF, CMP3, HA1C2, TSH5 #### [facility] [address] [place] [address] MCHC (RBC) [Mass/Vol] 34.2 % Normal 32.0-36.0 [facility] Comment on above: Performed By: #### L IPD2, HEMDF, CMP3, HA1C2, TSH5 #### [facility] [address] [place] [address] MCV (RBC) [Entitic vol] 93.3 fL Normal 79.0-98.0 S [facility] Comment on above: Performed By: #### L IPD2, HEMDF, CMP3, HA1C2, TSH5 #### [facility] [address] [place] [address] Monocytes (Bld) [#/Vol] 0.6 10*3/uL Normal 0.0-0.8 [facility] Comment on above: Performed By: #### L IPD2, HEMDF, CMP3, HA1C2, TSH5 #### [facility] [address] [place] [address] Monocytes/100 WBC (Bld) 6.8 % Normal 2.0-10.0 S [facility] Comment on above: Performed By: #### L IPD2, HEMDF, CMP3, HA1C2, TSH5 #### [facility] [address] [place] [address] Platelet mean volume (Bld) [Entitic vol] 7.7 fL Normal 7.4-10.4 [facility] Comment on above: Performed By: #### L IPD2, HEMDF, CMP3, HA1C2, TSH5 #### [facility] [address] [place] [address] Platelets (Bld) [#/Vol] 318 10*3/uL Normal 140-440 [facility] Comment on above: Performed By: #### L IPD2, HEMDF, CMP3, HA1C2, TSH5 #### [facility] [address] [place] [address] RBC (Bld) [#/Vol] 4.59 10*6/uL Normal 3.80-5.20 [facility] Comment on above: Performed By: #### L IPD2, HEMDF, CMP3, HA1C2, TSH5 #### [facility] [address] [place] [address] WBC (Bld) [#/Vol] 9.4 10*3/uL Normal 3.6-10.7 [facility] Comment on above: Performed By: #### L IPD2, HEMDF, CMP3, HA1C2, TSH5 #### [facility] [address] [place] [address] Lipid Panelon 01-20-2020 Cholesterol in HDL [Mass/Vol] 47 mg/dL Normal 40-60 [facility] Comment on above: Performed By: #### B GLU #### [facility] [address] [place] [address] Cholesterol.total/Choles terol in HDL [Mass ratio] 5 Normal [facility] Comment on above: Result Comment: Ref Range: < 3 Low Risk for CHD 3-6 Mod Risk for CHD > 6 High Risk for CHD Performed By: #### B GLU #### [facility] [address] [place] [address] Protein [Mass/Vol] 156 mg/dL Abnormal <100 [facility] Comment on above: Performed By: #### B GLU #### [facility] [address] [place] [address] Triglyceride [Mass/Vol] 195 mg/dL Abnormal <150 [facility] Comment on above: Performed By: #### B GLU #### [facility] [address] [place] [address] Cholesterol [Mass/Vol] 242 mg/dL Abnormal < 200 [facility] Comment on above: Performed By: #### B GLU #### [facility] [address] [place] [address] Cholesterol [Mass/Vol] 242 mg/dL Abnormal <200 [place], [place] Cholesterol in HDL [Mass/Vol] 47 mg/dL 40 - 60 mg/dL [place] Cholesterol in LDL [Mass/Vol] 156 mg/dL Abnormal <100 [place] Cholesterol.total/Choles terol in HDL [Mass ratio] 5 {ratio} [place] Comment on above: Ref Range: < 3 Low Risk for CHD 3-6 Mod Risk for CHD > 6 High Risk for CHD Triglyceride [Mass/Vol] 195 mg/dL Abnormal <150 M [place], [place] Microalbumin / Creatinine Ur ine Ratioon 01-20-2020 Albumin/Creatinine DL <= 20 mg/L (24H U) [Mass ratio] 18.6 mg/L High 0 - 17 mg/L [place] Comment on above: Microalbumin concent rations <30 are considered normal, 30-300 are considered microalbuminuria (or risk of diabetic nephropathy), and >300 are considered clinical albuminuria (clinical nephropathy). Diabetes Care,27, Supplement 1, V12-86, 2004 Albumin/Creatinine DL <= 20 mg/L (U) [Ratio] 9.2 mg/g 0 - 29.9 mg/g [place] Creatinine (U) [Mass/Vol] 201.3 mg/dL No Range [place] Interpretation and review of laboratory results Abnormal [place] Test Performed by [facility], [address] , [place], [place] [address] [place] Microalbumin/Creat Ratioon 0 01-20-2020 Microalb/Creat Ratio 9.2 mg/g Normal 0.0-29.9 [facility] Comment on above: Performed By: #### B GLU #### [facility] [address] [place] [address] Microalbumin, Ur 18.6 mg/L High 0.0-17.0 [facility] Comment on above: Result Comment: Micr oalbumin concentrations <30 are considered normal, 30-300 are considered microalbuminuria (or risk of diabetic nephropathy), and >300 are considered clinical albuminuria (clinical nephropathy). Diabetes Care,27, Supplement 1, U13-83, 2003 Performed By: #### B GLU #### [facility] [address] [place] [address] Creatinine, Ur Random 201.3 mg/dL Normal No Range [facility] Comment on above: Performed By: #### B GLU #### [facility] [address] [place] [address] Otheron 01-20-2020 Interpretation and review of laboratory results Abnormal [place] Test Performed by [facility], [address] TSH without Reflexon 020 TSH Qn 1.553 u[IU]/mL 0.465 - 4.68 u[IU]/mL [place] Test Performed by [facility], [address] , [address] Thyroid Stim. Hormoneon 01-10 Thyroid Stim. Hormone 1.553 u[IU]/mL Normal 0.465-4.68 0 [facility] Comment on above: Performed By: #### B GLU #### [facility] [address] [place] [address] CT Cervical Spine WO Contras ton 06-05-2019 Patient Name: RAUDEL AHUMADA ---CT--- Exam Date/Time 06/05/2019 20:16:[address] Spine Cervical w/o Contrast Ordering Physician MD TARAS, CARLA Accession Number [id number] CPT4 Codes 52236 () Reason For Exam neck pain Report CT CERVICAL SPINE: CLINICAL INDICATION: Fall. Struck back of head Neck pain. TECHNIQUE: 3 mm axial images of the cervical spine were obtained. Coronal and sagittal reconstruction images were provided for review. COMPARISON: None. FINDINGS: There is slight straightening of cervical spine. Cervical vertebra are in anatomic alignment. Vertebral body heights are maintained. Mild right- sided cervical facet osteoarthritis. The surrounding soft tissues of the neck are grossly unremarkable on this noncontrast study. All intervertebral disc spaces are preserved. Evaluation for a disc herniation is limited with CT imaging. IMPRESSION: No fracture or subluxation of the cervical vertebrae. Right-sided cervical facet osteoarthritis. Straightening of cervical spine may be secondary to muscular spasm or positioning. Report Dictated on --- Final --- Dictating Physician: JOHNNY CARLOS DO, I Signed Date and Time: 06/05/2019 8:21 pm Signed by: JOHNNY CARLOS DO, I Transcribed Date and Time: 06/05/2019 8:22 [place], [place] Mike, [facility] Incoming Radiology Results From [facility] - 06/05/2019 8:22 PM EDT Patient Name: RAUDEL AHUMADA ---CT--- Exam Date/Time 06/05/2019 20:16:[address] Spine Cervical w/o Contrast Ordering Physician MD ANGEL BETSY Accession Number [id number] CPT4 Codes 45061 () Reason For Exam neck pain Report CT CERVICAL SPINE: CLINICAL INDICATION: Fall. Struck back of head Neck pain. TECHNIQUE: 3 mm axial images of the cervical spine were obtained. Coronal and sagittal reconstruction images were provided for review. COMPARISON: None. FINDINGS: There is slight straightening of cervical spine. Cervical vertebra are in anatomic alignment. Vertebral body heights are maintained. Mild right- sided cervical facet osteoarthritis. The surrounding soft tissues of the neck are grossly unremarkable on this noncontrast study. All intervertebral disc spaces are preserved. Evaluation for a disc herniation is limited with CT imaging. IMPRESSION: No fracture or subluxation of the cervical vertebrae. Right-sided cervical facet osteoarthritis. Straightening of cervical spine may be secondary to muscular spasm or positioning. Report Dictated on --- Final --- Dictating Physician: JOHNNY CARLOS DO, I Signed Date and Time: 06/05/2019 8:21 pm Signed by: JOHNNY CARLOS DO, I Transcribed Date and Time: 06/05/2019 8:22 [facility], [place] CT Head WO Contraston 2018 Patient Name: RAUDEL AHUMADA ---CT--- Exam Date/Time 06/05/2019 20:16:[address] Head or Brain w/o Contrast Ordering Physician MD ANGEL BETSY Accession Number [id number] CPT4 Codes 31207 () Reason For Exam fall, hematoma to back of head Report CT HEAD WITHOUT CONTRAST: CLINICAL INDICATION: Fall. Headache and dizziness. Posterior scalp hematoma. COMPARISON: none TECHNIQUE: [address] images through the brain. Sagittal and coronal reformatted images provided. FINDINGS: Ventricles and extra-axial spaces: Mild prominence of cerebral ventricles, cisterns and sulci for age, compatible with mild cerebral atrophy. No extra-axial fluid collection. Cerebral and cerebellar parenchyma: Scattered nonspecific foci of low density in periventricular and subcortical white matter for age, compatible with chronic small vessel disease. No mass, mass effect or acute cortical infarct. Hemorrhage: None. Brainstem: Normal. Visualized paranasal sinuses: Normal. Mastoid air cells: Normal. Visualized orbits: Normal. Calvarium and skull base: Hyperostosis frontalis internus. Other: There is a right posterior parietal subgaleal/scalp hematoma. Tiny radiopaque density is seen along the margin of the scalp and may represent foreign body. IMPRESSION: No acute intracranial process. Cerebral atrophy and chronic small vessel ischemic disease. Right posterior parietal subgaleal/scalp hematoma. Possible tiny radiopaque foreign body overlying hematoma. Report Dictated on --- Final --- Dictating Physician: JOHNNY CARLOS DO, I Signed Date and Time: 06/05/2019 8:15 pm Signed by: JOHNNY CARLOS DO, I Transcribed Date and Time: 06/05/2019 8:16 [facility], [place] Mike, [facility] Incoming Radiology Results From [facility] - 06/05/2019 8:16 PM EDT Patient Name: RAUDEL AHUMADA ---CT--- Exam Date/Time 06/05/2019 20:16:[address] Head or Brain w/o Contrast Ordering Physician MD ANGEL BETSY Accession Number [id number] CPT4 Codes 48341 () Reason For Exam fall, hematoma to back of head Report CT HEAD WITHOUT CONTRAST: CLINICAL INDICATION: Fall. Headache and dizziness. Posterior scalp hematoma. COMPARISON: none TECHNIQUE: [address] images through the brain. Sagittal and coronal reformatted images provided. FINDINGS: Ventricles and extra-axial spaces: Mild prominence of cerebral ventricles, cisterns and sulci for age, compatible with mild cerebral atrophy. No extra-axial fluid collection. Cerebral and cerebellar parenchyma: Scattered nonspecific foci of low density in periventricular and subcortical white matter for age, compatible with chronic small vessel disease. No mass, mass effect or acute cortical infarct. Hemorrhage: None. Brainstem: Normal. Visualized paranasal sinuses: Normal. Mastoid air cells: Normal. Visualized orbits: Normal. Calvarium and skull base: Hyperostosis frontalis internus. Other: There is a right posterior parietal subgaleal/scalp hematoma. Tiny radiopaque density is seen along the margin of the scalp and may represent foreign body. IMPRESSION: No acute intracranial process. Cerebral atrophy and chronic small vessel ischemic disease. Right posterior parietal subgaleal/scalp hematoma. Possible tiny radiopaque foreign body overlying hematoma. Report Dictated on --- Final --- Dictating Physician: JOHNNY CARLOS DO, I Signed Date and Time: 06/05/2019 8:15 pm Signed by: JOHNNY CARLOS DO, I Transcribed Date and Time: 06/05/2019 8:16 [place] Vital Signs Date Time Vital Sign Value Performing Clinician Obdulia barnes 05-06-2020 10:36-0400 BP Diastolic 81 mm[Hg] [place], [place] 05-06-2020 10:36-0400 BP Systolic 172 mm[Hg] [place] 05-06-2020 10:33-0400 Body Temperature 97.2 [degF] [facility], [place] 05-06-2020 10:31-0400 BMI (Body Mass Index) 45.71 kg/m2 [facility], [place] 05-06-2020 10:31-0400 Body weight 113.4 kg [place] 05-06-2020 10:31-0400 Pulse (Heart Rate) 65 /min [place], [place] 05-06-2020 10:31-0400 Pulse Oximetry 93 % [facility] , [place] 05-06-2020 10:31-0400 Respiratory Rate 18 /min Johnny Stone [facility], [place] 06-05-2019 20:55-0400 BP Diastolic 59 mm[Hg] Carlaleyla Angel [place], [place] 06-05-2019 20:55-0400 BP Systolic 146 mm[Hg] Carla [place], [place] 06-05-2019 20:55-0400 Pulse (Heart Rate) 62 /min Carla [place], [place] 06-05-2019 20:55-0400 Pulse Oximetry 96 % Carla [place], [place] 06-05-2019 20:55-0400 Respiratory Rate 16 /min Carla [place] 06-05-2019 19:47-0400 BMI (Body Mass Index) 45.73 kg/m2 Carla [place] 06-05-2019 19:47-0400 Body Temperature 98.6 [degF] Carla [place] 06-05-2019 19:47-0400 Body weight 113.4 kg [place], [place] 06-05-2019 19:47-0400 Height 157.5 cm [place] Encounters Encounter Date Encounter Type Care Provider Facility Start: 01-11-2025 End: 01-11-2025 ambulatory Adelfo HERNANDEZ [facility] Work Phone: Start: 01-11-2025 End: 01-11-2025 Departed Referred Adelfo Dhaliwal [facility] [address] Start: 01-11-2025 End: 01-11-2025 ambulatory Adelfo HERNANDEZ Facility:[facility] Start: 12-23-2024 End: 12-23-2024 Emergency department patient visit MAIDA DILEEP Facility:[facility] Start: 07-13-2024 End: 07-13-2024 ambulatory Adelfo HERNANDEZ Facility:[facility] Start: 05-04-2024 End: 05-04-2024 ambulatory Adelfo HERNANDEZ Facility:[facility] Start: 03-01-2024 End: 03-01-2024 ambulatory Adelfo HERNANDEZ Facility:[facility] Start: 11-11-2023 End: 11-11-2023 ambulatory [facility] Work Phone: Start: 11-11-2023 End: 11-11-2023 Departed Referred [facility]-[place] [address] Start: 11-03-2023 Registered Referred [facility] - [address] Start: 10-21-2023 End: 10-21-2023 ambulatory [facility] Work Phone: Start: 10-21-2023 End: 10-21-2023 Departed Referred [facility] - [address] Start: 07-15-2023 Registered Referred [facility] - [address] Start: 07-12-2023 End: 07-12-2023 ambulatory [facility] Work Phone: Start: 07-12-2023 End: 07-12-2023 Departed Referred [facility] - [address] Start: 06-10-2023 End: 06-10-2023 ambulatory [facility] Work Phone: Start: 06-10-2023 End: 06-10-2023 Departed Referred [facility] [address] - [address] Start: 02-25-2023 End: 02-26-2023 ambulatory PATRICIA HARRIS [facility] Start: 02-25-2023 End: 02-25-2023 Office outpatient new 30 minutes Patricia Harris MD Work Phone: [facility] Comment on above: Lumbar pain (Primary Dx); Lumbar radiculitis; DDD (degenerative disc disease), lumbar Start: 02-25-2023 End: 02-25-2023 Subsequent hospital visit by physician Patricia Harris MD Work Phone: [facility] Rad Comment on above: Lumbar pain Start: 02-14-2023 End: 02-14-2023 ambulatory [facility] Work Phone: Start: 02-14-2023 End: 02-14-2023 Departed Referred [facility] - [address] Start: 01-16-2023 End: 01-16-2023 Departed Referred [facility] - [address] Start: 01-09-2023 End: 01-09-2023 ambulatory [facility] Work Phone: Start: 01-09-2023 End: 01-09-2023 Departed Referred [facility] - [address] Start: 12-10-2022 Telephone encounter López Cisneros Ma rtinez DDS Work Phone: [facility] Surgery Start: 10-30-2022 End: 10-30-2022 ambulatory [facility] Work Phone: Start: 10-30-2022 End: 10-30-2022 Departed Referred [facility] - [address] Start: 10-01-2022 End: 10-01-2022 ambulatory [facility] Work Phone: Start: 10-01-2022 End: 10-01-2022 Departed Referred [facility] - [address] Start: 06-19-2022 ambulatory [facility]Z [facility] Start: 06-19-2022 End: 06-19-2022 Patient encounter procedure López Ayala DDS Work Phone: [facility] Surgery Comment on above: 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); Retained tooth root; Chronic periodontitis Start: 04-17-2022 End: 04-24-2022 ambulatory SELF PATIENT Facility:[facility] Start: 12-21-2021 End: 12-21-2021 Departed Referred [facility] - [address] Start: 06-15-2020 End: 06-15-2020 Subsequent hospital visit by physician Maida Doshi Work Phone: [facility] Radiology Start: 05-12-2020 End: 05-12-2020 Subsequent hospital visit by physician Maida Doshi Work Phone: [facility] Laboratory Comment on above: Abnormal finding of blood chemistry, unspecified ; Other hyperlipidemia; HTN (hypertension), benign; Thyroid nodule Start: 05-06-2020 End: 05-06-2020 Emergency department patient visit Johnny Stone Work Phone: [facility] Comment on above: Encounter for staple removal (Primary Dx) Start: 01-20-2020 End: 01-20-2020 Subsequent hospital visit by physician Maida Doshi Work Phone: [facility] Laboratory Comment on above: HTN (hypertension), benign; Diabetes mellitus without complication (HCC) Start: 06-05-2019 End: 06-05-2019 Emergency department patient visit Carla Angel Work Phone: [facility] Comment on above: Scalp hematoma, init ial encounter (Primary Dx); Injury of head, initial encounter; Fall, initial encounter Procedures Date Procedure Procedure Detail Performing Clinician Start: 01-11-2025 Vitamin D, 25-hydrox y measurement Adelfo HERNANDEZ Comment on above: Vitamin D StatusDefi ciency: <20 ng/mL (50nmol/L)Insufficiency: 20-30 ng/mL (50-75 nmol/L)Sufficiency: 30-100 ng/mL (75-250 nmol/L)Toxicity: >100 ng/mL (>250 nmol/L) Start: 11-03-2023 Viral nucleic acid assay Start: 10-21-2023 Urine culture Start: 07-15-2023 Urine culture Start: 06-19-2022 extraction, erupted tooth or exposed root (elevation and/or forceps removal) Jules Moore DMD Work Phone: Start: 10-28-2020 Thyrotropin [Units/v olume] in Serum or Plasma Patricia Harris MD Work Phone: Start: 06-15-2020 Radex spine lumbosac ral minimum 4 views Maida Doshi Work Phone: Start: 05-12-2020 Assay of thyroid stimulating hormone tsh Maida Doshi Work Phone: Start: 05-12-2020 Blood count complete auto&auto difrntl wbc Maida Doshi Work Phone: Start: 05-12-2020 Comprehensive metabo lic panel Maida Doshi Work Phone: Start: 05-12-2020 Hemoglobin glycosylated a1c Maida Doshi Work Phone: Start: 05-12-2020 Lipid panel Maida brown Work Phone: Start: 01-20-2020 Urine albumin quantitative Maida Doshi Work Phone: Start: 01-20-2020 Assay of thyroid stimulating hormone tsh Maida Doshi Work Phone: Start: 01-20-2020 Blood count complete auto&auto difrntl wbc Maida Doshi Work Phone: Start: 01-20-2020 Comprehensive metabo lic panel Maida Doshi Work Phone: Start: 01-20-2020 Hemoglobin glycosylated a1c Maida Doshi Work Phone: Start: 01-20-2020 Lipid panel Maida brown Work Phone: Start: 06-05-2019 Ct cervical spine w/ o contrast material Carla Taras Work Phone: Start: 06-05-2019 Ct head/brain w/o co ntrast material [facility] Work Phone: Plan of Treatment Date Care Activity Detail Author Start: 04-12-2023 Influenza vaccination Influenza Vaccine (#1) [facility] Start: 12-21-2022 Lipid panel Lipid Profile [facility] Start: 06-23-2022 Hemoglobin A1c measurement Hemoglobin A1C [facility] Start: 05-12-2022 Influenza vaccination Influenza Vaccine (#1) [facility] Start: 01-10-2022 Welcome to Medicare Visit (G0402) Welcome to Medicare Visit (G0402) [facility] Start: 10-28-2021 Thyroid stimulating hormone measurement TSH Level [facility] Start: 05-12-2021 Creatinine measurement Creatinine monitoring [facility] [place] [place] Start: 05-12-2021 Potassium monitoring Potassium monitoring [place] Start: 05-12-2021 TSH Qn TSH testing [place] Start: 04-29-2021 Creatinine measurement Creatinine monitoring [place] Start: 04-29-2021 Potassium monitoring Potassium monitoring [place] Start: 01-19-2021 TSH Qn TSH testing [place] Start: 11-02-2020 COVID-19 Vaccine (3 - Booster for Pfizer series) COVID-19 Vaccine (3 - Booster for Pfizer series) [facility] Start: 09-28-2020 COVID-19 Vaccine (2 - Pfizer series) COVID-19 Vaccine (2 - Pfizer series) [facility] Start: 05-12-2020 End: 05-12-2020 Office Visit 05/12/2020 Office Visit Family Medicine Maida Doshi MD [address] [place] [id number] [phone] [facility] Start: 04-12-2020 Influenza vaccination [place] Start: 01-01-2020 Creatinine measurement Creatinine monitoring [place] Start: 01-01-2020 Creatinine monitoring Creatinine monitoring [place] Start: 01-01-2020 Potassium monitoring Potassium monitoring [place] Start: 01-01-2020 TSH Qn TSH testing [place] Start: 01-01-2020 TSH testing TSH testing [place] Start: 04-12-2019 Influenza vaccination Flu vaccine (#1) [place] Start: 01-28-2019 Annual Wellness Visit (AWV) Annual Wellness Visit (AWV) [place] Start: 08-29-2018 Pneumococcal 65+ years Vaccine (2 of 2 - PPSV23) Pneumococcal 65+ years Vaccine (2 of 2 - PPSV23) [place] Start: 08-29-2018 Pneumococcal vaccination Pneumococcal Vaccine(s) (65+ yrs) (2 - PPSV23 if available, else PCV20) [facility] Start: 10-24-2017 Pneumococcal vaccination Pneumococcal Vaccine(s) (65+ yrs) (2 - PPSV23 if available, else PCV20) [facility] Start: 10-24-2017 Pneumococcal Vaccine: 65+ Years (2 - PPSV23 if available, else PCV20) Pneumococcal Vaccine: 65+ Years (2 - PPSV23 if available, else PCV20) [facility] Start: 10-31-2000 Screening for osteoporosis Bone Densitometry [facility] Start: 10-31-1985 Shingles (RZV) Vaccine (1 of 2) Shingles (RZV) Vaccine (1 of 2) [facility] Start: 10-31-1985 Shingles Vaccine (1 of 2) Shingles Vaccine (1 of 2) [place] Start: 10-31-1985 Zoster Vaccines (1 of 2) Zoster Vaccines (1 of 2) [facility] Start: 10-31-1954 DTaP/Tdap/Td vaccine (1 - Tdap) DTaP/Tdap/Td vaccine (1 - Tdap) [place] Start: 10-31-1954 DTaP/Tdap/Td Vaccines (1 - Tdap) DTaP/Tdap/Td Vaccines (1 - Tdap) [facility] Start: 10-31-1953 Tetanus + diphtheria + acellular pertussis vaccine (product) Tdap Booster [facility] Start: 1947 Depresssion Monitoring Depresssion Monitoring [facility] Start: 1935 Diabetic retinal eye exam Eye Exam [facility] Start: 1935 Lipid panel Lipid Profile [facility] Start: 1935 Urine screening for protein Microalbumin [facility] Start: 1935 Basic metabolic 2000 panel - Serum or Plasma Basic Metabolic Panel [facility] Start: 1935 Diabetic foot examination Foot Exam [facility] Start: 1935 Screening for osteoporosis Bone Density Scan [facility] Start: 1935 Thyroid stimulating hormone measurement TSH [facility] Immunizations Immunization Date Immunization Notes Care Provider Fa chris 12-21-2021 Hemoglobin A1C López Ayala DDS Work Phone: [facility] 09-07-2020 Pfizer Monovalent (1 2+ yrs) SARS-COV-2 (COVID-19) vaccine, mRNA, spike protein, LNP, pres. free, 30 mcg/0.3mL dose (DYK=820) López Ayala DDS Work Phone: [facility] 08-17-2020 Pfizer Monovalent (1 2+ yrs) SARS-COV-2 (COVID-19) vaccine, mRNA, spike protein, LNP, pres. free, 30 mcg/0.3mL dose (XNM=[id number]) López Ayala DDS Work Phone: [facility] 08-29-2017 influenza, high dose seasonal, preservative-free [facility] 08-29-2017 pneumococcal conjuga te vaccine, 13 valent [facility] 08-29-2017 influenza virus vaccine, unspecified formulation López Ayala DDS Work Phone: [facility] 09-19-2016 influenza, injectabl e, quadrivalent, contains preservative [facility] 06-16-2015 influenza virus vaccine, unspecified formulation [facility] Work Phone: 06-16-2015 influenza virus vaccine, whole virus López Ayala DDS Work Phone: [facility] Payers Date Payer Category Payer Self-pay [id number] 2024 Unknown [id number] 2022 Unknown [facility] [facility] [employer] [id number] 2022-Present [phone] [address] [place] [address] Indemnity [id number] 2022 Medicare [id number] 2022 Unknown [id number] 2017 Private Health Insurance [facility] MEDICARE SUPP [id number] 2017-Present [phone] [address] [place] [address] [id number] 2015 Medicare xxxxxxxxxxx [id number] 2015 Medicare [id number] 1935 Unknown [id number] 1935 Unknown [id number] Unknown [id number] 462 Unknown [id number] 462 Unknown [id number] 462 Unknown [id number] 462 Social History Date Type Detail Facility Start: 06-05-2019 End: 04-17-2022 Tobacco smoking status SCIS [facility] Start: 06-05-2019 End: 07-31-2022 Alcohol intake Current non-drinker of alcohol (finding) [employer] MARY Start: 1935 Sex Assigned At Not on file [facility] [employer] [place], [place] Exposure to SARS-CoV -2 (event) [facility] to assess [facility] Start: 05-06-2020 End: 05-12-2020 Tobacco smoking status NHIS Former smoker [facility] [employer], MARY Start: 05-06-2020 End: 04-17-2022 Tobacco use and exposure [facility] used [facility] Start: 02-15-2023 End: 02-25-2023 Exposure to SARS-CoV-2 (event) [facility] Start: 06-05-2019 End: 07-31-2022 Alcohol intake [facility] 1935 Sex Assigned At Female [facility] History of tobacco use Current smoker [facility] [employer] Start: 07-31-2022 History of Social function [facility] Tobacco smoking stat us SCIS Unknown if ever smoked [facility] Work Phone: Medical Equipment Procedure Code Equipment Code Equipment Origin al Text Equipment Identifier Dates Test daily fasti ng dx Dispense as covered by PT insurance [id number] Start: 01-14-2017 Dx E11.9 TEST ON CE DAILY PATIENT USES PRODIG[employer] [id number] Start: 01-14-2017 Clinical Notes 06-19-2022 to 02-25-2023 Patricia Harris MD - 02/25/2023 9:45 AM EDTTelephone Encounter - Dial, [place] - 12/10/2022 4:18 PM EDTTelephone Encounter - Dial, [place] - 12/10/2022 4:18 PM Amanda Palmer - 06/19/2022 9:11 AM EST Note Date & Type Note Facility 02-25-2023 History of Presen t illness Narrative Images from the original note were not included. [facility] [address] [place] [address] Dept: [phone] Dept Chief Complaint Patient presents with Back Pain Left lower leg Subjective History of Present Illness: Raudel Ahumada is a 87 y.o. female who presents today for evaluation of back pain. Patient was scheduled for chronic low back pain on her schedule. When she presented today she presented for left great toe pain and a dystrophic left great toenail as her presenting symptom and issue. Location: left Onset: about 3 years Injury: no Quality: aching, sharp, and shooting Radiation of symptoms: yes - down left lower extremity Severity: moderate Exacerbating factor(s): prolonged standing, prolonged sitting, and rising from a seated position Relieving factor(s): rest and activity modification Timing: intermittently Low back red flags: Metastatic cancer: No Recent trauma: No Bowel or bladder incontinence: No Urinary retention: No Progressive lower extremity weakness or sensory loss: No Saddle anesthesia: No Spinal surgery in the last year: No IV drug abuse: No Unexplained weight loss: No Immunosuppression: No Chronic steroid use: No Fevers, chills, nights sweats: No Unremitting/rest pain: Yes Imaging to date: X-ray June 2020 Treatment to date: PT/OT/HEP: no Ice: yes, not helpful Heat: yes, not helpful Medications: Tylenol: yes, helpful NSAIDs: no Oral steroids: no Muscle relaxants: no Nerve medications: no Targeted injections: none Assistive devices: wheelchair Prior surgery: no 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 She is a poor historian and cannot accurately update today . 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 Objective There were no vitals taken for this visit. Physical Exam: General: Alert, well appearing, no acute distress. Respiratory: Breathing comfortably on room air. No respiratory distress. Skin: Warm, dry, intact. No visible rashes or erythema overlying area of focused exam. Physical Exam Musculoskeletal: Lumbar back: Tenderness (Diffuse) present. No swelling, deformity, spasms or bony tenderness. Decreased range of motion (Unable to test as the patient is in wheelchair). Negative right straight leg raise test and negative left straight leg raise test. Left foot: Deformity (Dystrophic and deformed left great toenail, no signs of bacterial infection.) present. Comments: Strength Testing Hip Flexors (T12-L3) normal strength right, left old weakness Quad (L2-L4) normal strength right, left old weakness Tibialis Anterior (L4) normal strength right, left old weakness Extensor Hallusis Longus (L5) normal strength right, left weakness Peroneus Longus (S1) normal strength right, left old weakness Gastroc (S1) normal strength right, left weakness Sensation Testing Lateral Thigh (L1-L2) intact to light touch bilateral, no paresthesia Medial Knee (L3) intact to light touch bilateral, no paresthesia Medial Calf, Medial Foot (L4) intact to light touch bilateral, no paresthesia Lateral Calf, 1st web space (L5) intact to light touch bilateral, no paresthesia Lateral Foot (S1) intact to light touch bilateral, no paresthesia External Notes None available Labs Lab Results Component Value Date HGBA1C 6.7 (H) 05/12/2020 Lab Results Component Value Date CREATININE 0.59 05/12/2020 Imaging No imaging available for review Unable to perform lumbar x-rays today in our office due to not enough staff to assist in transfer and safe imaging. EMG/NCT N/A Procedure No procedures completed today Assessment Diagnosis Plan 1. Lumbar pain Ambulatory referral to Physical Therapy 2. Lumbar radiculitis Ambulatory referral to Physical Therapy 3. DDD (degenerative disc disease), lumbar Ambulatory referral to Physical Therapy Plan We did discuss that she will need to see a telemarketer for her left great toenail care. No significant change in her back pain for 3 years. 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 We recommended continued maintenance of her strength level and continued formal physical therapy. We will go ahead and write an order for her to get formal physical therapy at [facility] care for her chronic weakness. Follow-up with neurology for any potential care for her left hemiparesis. Follow up if symptoms worsen or fail to improve, for call our office with any questions at [phone]. Patricia Harris MD 02/25/2023 10:03 AM Please note that portions of this note may have been completed with voice recognition software. Documentation reviewed prior to signing but minor errors in briquette machine operator helper may have occurred. documented in this encounter [facility] 12-10-2022 Telephone encounter Note Patient is calling to states she had dentures that Dr Ayala took to have them to realign. Patient states the bottom denture was never returned to her. Patient states the dentures were not made in the clinic. They were made outside of [facility]. When she seen Dr Ayala in June 2022 he performed another mold and she is waiting to pick them up. Pls call pt @ [phone] Thank you [facility] 12-10-2022 Miscellaneous Notes Patient is calling to states she had her dentures made in oral surgery and Dr Ayala took them to realign them and she has never had them returned. Pls call pt @ [phone] Thank you Spoke with patient regarding her dentures. Explained to her that Dr. Ayala does not make dentures. Provided the contact information for [facility] and explained that if these dentures have been made by a [facility] provider, this is the department that will have them, otherwise she will need to see an outside dentist to have dentures made. Patient understood. Titus Ramirez DMD Oral & Maxillofacial Surgery, PGY-3 Team Pager: [phone] The patient called in looking for her teeth. She wants to speak to about this matter. She says that he took her teeth so he is responsible for replacing them. I tried explaining to he patient that does not make dentures or teeth and she said that she knows that but still wants to speak with him. She said that this is very important as she has not had any teeth since June. Please give pt a call letting her know the best way to go about getting new teeth. She is upset about this and can be reached at [phone] Thank You! documented in this encounter [facility] 12-10-2022 Miscellaneous Notes Patient is calling to states she had dentures that Dr Ayala took to have them to realign. Patient states the bottom denture was never returned to her. Patient states the dentures were not made in the clinic. They were made outside of [facility]. When she seen Dr Ayala in June 2022 he performed another mold and she is waiting to pick them up. Pls call pt @ [phone] Thank you Spoke with patient regarding her dentures. Explained to her that Dr. Ayala does not make dentures. Provided the contact information for [facility] and explained that if these dentures have been made by a [facility] provider, this is the department that will have them, otherwise she will need to see an outside dentist to have dentures made. Patient understood. Titus Ramirez DMD Oral & Maxillofacial Surgery, PGY-3 Team Pager: [phone] The patient called in looking for her teeth. She wants to speak to about this matter. She says that he took her teeth so he is responsible for replacing them. I tried explaining to he patient that does not make dentures or teeth and she said that she knows that but still wants to speak with him. She said that this is very important as she has not had any teeth since June. Please give pt a call letting her know the best way to go about getting new teeth. She is upset about this and can be reached at [phone] Thank You! documented in this encounter [facility] 12-10-2022 Telephone encounter Note Spoke with patient regarding her dentures. Explained to her that Dr. Ayala does not make dentures. Provided the contact information for [facility] and explained that if these dentures have been made by a [facility] provider, this is the department that will have them, otherwise she will need to see an outside dentist to have dentures made. Patient understood. Titus Ramirez DMD Oral & Maxillofacial Surgery, PGY-3 Team Pager: [phone] [facility] Work Phone: 12-10-2022 Telephone encounter Note The patient called in looking for her teeth. She wants to speak to about this matter. She says that he took her teeth so he is responsible for replacing them. I tried explaining to he patient that does not make dentures or teeth and she said that she knows that but still wants to speak with him. She said that this is very important as she has not had any teeth since June. Please give pt a call letting her know the best way to go about getting new teeth. She is upset about this and can be reached at [phone] Thank You! [facility] 06-26-2022 Note I was personally pre sent for the otero portions of the procedure. López Ayala DDS [employer] 06-26-2022 History of Presen t illness Narrative I was personally present for the otero portions of the procedure. López Ayala DDS ORAL SURGERY PROCEDURE ROOM [facility]): Routine extraction teeth 2, 4, 5, 8, 9, 10, 11, 12, 14 under local anesthetic. PMH: Reviewed, no change. Antibiotic prophylaxis indicated/taken: not applicable Discussed risks, benefits, and alternatives of treatment. 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 Radiograph is correctly matched to the patient,diagnostic quality, correctly oriented for laterality: Yes 2. Time out performed confirming correct surgical site and/or involved teeth verified by the patient and the surgeon: Yes Anesthesia: 20% topical Benzocaine paste on oral mucosa, 2% Xylocaine with 1/100,000 epinephrine: 2 carpules, and 4% Articaine with 1/100,000 epinephrine 2 carpules, infiltration administration only Attending: López Ayala DDS Resident: Jules Moore DMD Circulating Nurse: None Assistants: XOCHILT Puente Alan Martinez, DDS Procedure in Detail: Reflected mucoperiosteal cuff around tooth # 2, 4, 5, 8, 9, 10, 11, 12, 14 under local anesthetic. , atraumatic delivery with elevator and forceps technique with root apices intact. Inspected socket, followed by curettage, peridex irrigation, 3.0 gut chromic suture x4 and gauze placed under masticatory pressure to aid with hemostasis. Complications: none Specimens: Intact teeth Estimated blood loss: Minimal (<5 ml) Disposition: Home Jules Moore DMD OMFS Resident Images from the original note were not included. documented in this encounter [facility] 06-19-2022 Note ORAL SURGERY PROCEDU RE ROOM NOTE [facility] Surgical Product(s): Routine extraction teeth 2, 4, 5, 8, 9, 10, 11, 12, 14 under local anesthetic. PMH: Reviewed, no change. Antibiotic prophylaxis indicated/taken: not applicable Discussed risks, benefits, and alternatives of treatment. 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 Radiograph is correctly matched to the patient,diagnostic quality, correctly oriented for laterality: Yes 2. Time out performed confirming correct surgical site and/or involved teeth verified by the patient and the surgeon: Yes Anesthesia: 20% topical Benzocaine paste on oral mucosa, 2% Xylocaine with 1/100,000 epinephrine: 2 carpules, and 4% Articaine with 1/100,000 epinephrine 2 carpules, infiltration administration only Attending: López Ayala DDS Resident: Jules Moore DMD Circulating Nurse: None Assistants: XOCHILT Puente Alan Martinez, DDS Procedure in Detail: Reflected mucoperiosteal cuff around tooth # 2, 4, 5, 8, 9, 10, 11, 12, 14 under local anesthetic. , atraumatic delivery with elevator and forceps technique with root apices intact. Inspected socket, followed by curettage, peridex irrigation, 3.0 gut chromic suture x4 and gauze placed under masticatory pressure to aid with hemostasis. Complications: none Specimens: Intact teeth Estimated blood loss: Minimal (<5 ml) Disposition: Home Jules Jamie Moore DMD [facility] Resident [facility] 06-19-2022 Instructions TeresaJulesSALAS - 06/19/2022 10:12 AM EST Dental extraction Instructions Biting on Gauze to Control Bleeding Bleeding may occur for some time after you extraction. In most cases this bleeding can be easily controlled by placing a piece of clean gauze DIRECTLY over the empty tooth socket. Then make sure that you bite firmly on this gauze for 30 to 60 minutes. Use the gauze we supplied to you in the bag. Wash your hands with soap and water before touching the gauze and placing it in your mouth. Place the used gauze from your mouth in a plastic bag and dispose the bag in a trash container. Make sure to wash your hands again when you are done touching the used gauze and before touching anything else. If a small amount of bleeding continues after 45 minutes then repeat these instructions. Sometimes biting a tea bag may be helpful in controlling minor bleeding. Very light bleeding for 2 days is not uncommon. If heavy bleeding is still persistent during normal clinic hours than call the Clinic where the extraction was done to speak with an oral surgeon. [facility] [phone]. HELPING THE HEALING PROCESS AND STOPPING THE BLEEDING FOR THE NEXT 24 HOURS (1 DAY) AFTER THE EXTRACTION: DO NOT RINSE YOUR MOUTH OR SPIT 2. DO NOT DRINK ANY HOT LIQUIDS SUCH SOUP, COFFEE, TEA, HOT CHOCOLATE AVOID HEAVY LIFTING, BENDING OR OTHER STENUOUS EXERCISES SLEEP WITH 2 PILLOWS OR IN A RECLINER CHAIR. KEEPING HEAD ELEVATED WILL REDUCE SWELLING. SUTURE WILL DISSOLVE IN 7-10 DAYS FOR THE NEXT 72 HOURS (3 DAYS) AFTER THE EXTRACTION: DO NOT SMOKE OR DRINK ALCOHOL DO NOT DRINK OR SUCK FROM A STRAW OR ANYTHING ELSEDO NOT DRINK. Stitches may have been placed to help healing. Your surgeon will advise you if you need to return to have them removed. TOOTH BRUSHING On the day of the extraction it is best to avoid brushing the teeth right next to the extraction site. On the next day you can start brushing ALL your teeth but in a gentle fashion. Remember to not rinse strongly because it may cause you to start bleeding from the extraction site again. SWELLING AND PAIN After the extraction you may feel some pain and experience some swelling. An ice pack of unopened bag of frozen peas of corn applied to the area should keep the swelling down. Put the ice pack on you face for 10 minutes and then leave it off for the next 20 minutes. You can repeat this patter as you feel is necessary for up to 24 hours after the extraction. To avoid injury, make sure that adults or children avoid biting or chewing on their lips of cheeks, which may be numb following an extraction. If your pain or swelling seems to be getting worse or you feel as though something is not right then call your dentist, as directed above. ANTIBIOTICS AND PAIN MEDICATION If antibiotics have been prescribed then you should take them as directed; this includes taking all the antibiotic (or liquid) pills that were prescribed. If you don't finish them completely a serious infection could result. You may have little of no discomfort after the extraction. If you have minor pain then you may want to take acetaminophen (Tylenol) or ibuprofen (Motrin). It is very important that before taking any medications that you read and follow the directions and warnings that come with these products so you know whether they are right for you and you situation. If you have any questions on whether these medications are right for you, first talk to your doctor or pharmacist before taking the medication. Your surgeon may have given you a written prescription for pain relief. It is important that if you decide to take it you read and understand all the precautions, warnings and directions that come with the medication. If you have any questions on whether the medication is right for you, first talk to your doctor or pharmacist before taking the medication. The pain medication prescription that your dentist gave you may contain a narcotic (like codeine). If so, most narcotic pain medications may upset your stomach. If so, then it is best to take them with food. The pain medication prescription that you were given can also make you drowsy or make you act strangely. If so, you should limit or stop activities such as driving a motor vehicle, operate machinery or other activities that require your full attention. EATING AND DRINKING A soft or liquid diet may be best for you after a difficult extraction. For a simpler extraction just make sure you do your chewing with those teeth that are NOT near the extraction site. POSTOPERATIVE INSTRUCTION AFTER SEDATION / GENERAL ANESTHESIA If you had general anesthesia of IV sedation, do not drive or operate machinery for 24 hours. A responsible adult should be with you for the remainder of the day. When starting oral intake, be sure to consume CLEAR LIQUIDS first. Clear liquids consist of water, Sprite, veto joanne, Jell-O, and non-pulp containing juices such as cranberry and apple juice. Once tolerating clear-liquids, you may advance your diet. Be sure to follow the specific diet instructions from your doctor according to the type of surgery you have had. It is important that you take any narcotic containing pain medications with food. Patients should not participate in any strenuous activity. Standing and sitting up too quickly following surgery can also result in dizziness and exacerbate these problems. It is also important that patients be supervised for an appropriate amount of time following sedation in order to ensure that they remain safe in the post-operative period. Under NO circumstances should a patient drive the day of surgery or participate in any important decisions. NAUSEA & VOMITING Nausea is not uncommon after surgery. Sometimes pain medications may be the cause. In the event of nausea and/or vomiting following surgery, do not take anything by mouth for at least an hour including the prescribed medicine. You should then sip on Coke, tea, or veto joanne. You should sip slowly over a 15-minute period. When the nausea subsides, you can begin taking solid foods and the prescribed medicine. You may take the anti-nausea medication if prescribed. If the above is not helpful, contact your surgeon. Please if you have any questions or concerns please contact us: [facility] . Ask for the oral health therapist cartoonist special effects (after hours). surgery scheduling coordinator Clinic Hours: Mon-Fri 8:30 am to 4:30 pm. 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- Primary Dental caries extending into pulp Retained tooth root Retained dental root Chronic periodontitis Chronic periodontitis, unspecified [facility] Diagnosis Lumbar pain- Primary Lumbago Lumbar radiculitis DDD (degenerative disc disease), lumbar Degeneration of lumbar or lumbosacral intervertebral disc [facility] Lumbar pain Lumbago [facility] Consultation (Routine) - Pending Review Specialty Diagnoses / Procedures Referred By Tish t Referred To Contact Physical Therapy Diagnoses Lumbar pain Lumbar radiculitis DDD (degenerative disc disease), lumbar Procedures AL OFFICE/OUTPATIENT [facility] 60-74 MINUTES Patricia Harris MD [address] [place] [address] Referral ID Status Reason Start Date Expiration Date Visits Requested Visits Authorized [id number] Pending Review Specialty Services Required 02/25/2023 02/25/2024 99 [phone] [facility] ([facility]ative[facility]No reason for referral [facility] Work Phone: Assessments Diagnosis HTN (hypertension), benign Essential hypertension, benign Diabetes mellitus without complication (HCC) Type II or unspecified type diabetes mellitus without mention of complication, not stated as uncontrolled Diagnosis Encounter for staple removal Encounter for removal of sutures Diagnosis Scalp hematoma, initial encounter- Primary Injury of head, initial encounter Fall, initial encounter Diagnosis Abnormal finding of blood chemistry, unspecified Other hyperlipidemia HTN (hypertension), benign Essential hypertension, benign Thyroid nodule Nontoxic uninodular goiter Advance Directives No Advanced Directives Records FoundDocuments on File Type Date Recorded 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 * Stitches and Fenton Removal: General Info (Togolese) documented in this encounter* Attachments The following attachments cannot be sent through Care Everywhere. * Head Injury: Closed: General Info (Togolese) documented in this encounter Summary Purpose Family History No Family History Records FoundNo Family History Records FoundNo Family History Records FoundNo Family History Records FoundNo Family History Records Found Hospital Course Note Hospitalist Discharge Summar y Throughout the encounter I wore an N95 MASK, FACE SHIELD Raudel Ahumada : 1935 Admit date: 04/27/2020 Discharge date: 04/30/2020 Admitting Physician: Gregorio Sheehan MD Primary Care Physician: Maida Doshi MD Visit Status: Admission Code Status: Full Code Discharge Diagnoses: Active Problems: Type 2 diabetes mellitus (HCC) Morbidly obese (HCC) Resolved Problems: Syncope and collapse Syncopal episode due to neurontin - resolved 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 Patient is a 84-year-old lady who fell down at home and sustained a head laceration on the occipital area, she was brought into the Emergency Department and had leonid placed, brain imaging was negative for bleed and stroke. Patient was put on telemetry status, which did no (more content not included)... Chief Complaint and Reason for Visit Chief Complaint LABWORK Chief Complaint LABWORK HALF-WAY LABWORK Chief Complaint LABWORK HALF-WAY LABWORK LABWORK Chief Complaint LABWORK LABWORK HALF-WAY LAB WORK Chief Complaint HALF-WAY LAB WOR K LABWORK Chief Complaint LABWORK LABWORK Chief Complaint Admit Date LABWORK January 11, 2025 5:00a m Additional Source Comments Reason for Visit (unrecogniz ed section and content) Reason Comments Suture / Staple Removal Reason Comments Fall cane got caught in a hole and she tripped and fell backwards and hit the back of her head. no loc,no dizziness. small amt bleeding Reason Comments Back Pain Left lower leg INFORMATION SOURCE (unrecogn ized section and content) DATE CREATED AUTHOR 06/16/2020 [facility] DATE CREATED AUTHOR AUTHOR'S ORGANIZ ATION 12/11/2022 [facility] DATE CREATED AUTHOR AUTHOR'S ORGANIZ ATION 02/26/2023 [facility] DATE CREATED AUTHOR AUTHOR'S ORGANIZ ATION 12/24/2024 [facility] DATE CREATED AUTHOR AUTHOR'S ORGANIZ ATION 01/25/2025 [facility] Goals (unrecognized section and content) Goals may be documented in a n alternate sectionGoals may be documented in an alternate sectionGoals may be documented in an alternate sectionGoals may be documented in an alternate sectionGoals may be documented in an alternate sectionGoals may be documented in an alternate sectionGoals may be documented in an alternate sectionGoals may be documented in an alternate sectionGoals may be documented in an alternate sectionGoals may be documented in an alternate section Care Teams (unrecognized sec tion and content) Team Status: Inactive Member Role Status Dates Adelfo HERNANDEZ Attending Provider Active Team Status: Active Member Role Status Dates Adelfo HERNANDEZ Attending Provider Active Team Status: Inactive Member Role Status Dates Adelfo HERNANDEZ Attending Provider, Referring Provid er Active Environmental Compliance Specialist Relationship Specialty Start Date End Date Maida Doshi MD [address] [place] [address] PCP - General Family Medicine 02/25/23 Environmental Compliance Specialist Relationship Specialty Start Date End Date Maida Doshi MD [address] [place] [address] PCP - General Family Medicine 02/25/23 Team Status: Inactive Member Role Status Dates Adelfo HERNANDEZ Attending Provider Active Star t: January 11, 2025 End: January 11, 2025 FOR RECORDS PERTAINING TO PATIENTS WHO ARE OR HAVE BEEN ENROLLED IN A CHEMICAL DEPENDENCY/SUBSTANCEABUSE PROGRAM, SOME INFORMATION MAY BE OMITTED. This clinical summary was aggregated from multiple sources. Caution should be exercised in using it in the provision of clinical care. This summary normalizes information from multiple sources, and as a consequence, information in this document may materially change the coding, format and clinical context of patient data. In addition, data may be omitted in some cases. CLINICAL DECISIONS SHOULD BE BASED ON THE PRIMARY CLINICAL RECORDS. [facility] resmio [facility]. provides no warranty or guarantee of the accuracy or completeness of information in this document.
[2025-03-15 09:23] LABS: Anion Gap 12 (5-15); BUN 13 mg/dL (4-19); BUN/Creat Ratio 30.2 RATIO (10-20); Calcium,Total 9.9 mg/dL (7.6-11.0); Carbon Dioxide 26.1 mmol/L (21.0-32.0); Chloride 102 mmol/L (98-108); Glucose 131 mg/dL (70-99); Potassium 4.1 mmol/L (3.3-5.1); Vitamin D,25 Hydroxy 29.9 ng/mL (30-100)
== END ==
LOC: OLS.ACW100 05:00
PROVIDERS: Visit Provider Family Medicine
DX: M62.82 Rhabdomyolysis (principal); R55 Syncope and collapse; Z74.1 Need for assistance with personal care; M62.81 Muscle weakness (generalized); R41.841 Cognitive communication deficit; R27.9 Unspecified lack of coordination; E11.9 Type 2 diabetes mellitus without complications
CPT/HCPCS: 36415; 80048; 82306

== ENCOUNTER → 2025-05-05 05:00 | Outpatient (REF) | payer MEDICAID, SELFPAY ==
--- OUTSIDE RECORDS SUMMARY | 2025-05-05 03:59 | XMS RPT_ITS | CCD ---
Author Organization [facility] ion [facility] Care Team Providers Care Behavioral Geneticist Name Role Phone Maida Doshi Primary Care Provider Unavailable Primary Care Provider Unavailabl e Unavailable Primary Care Provider Unavailamna e LÓPEZ AYALA Referring Unavailable PROVIDER, UNKNOWN Attending Unavailable PROVIDER, UNKNOWN Admitting Unavailable PATIENT, SELF Referring Unavailable PROVIDER, UNKNOWN Attending Unavailable PROVIDER, UNKNOWN Admitting Unavailable Dileep NAGEL, Maida Primary Care Provider PATRICIA HARRIS Attending Unavailable PATRICIA HARRIS Referring Unavailable DILEEP MAIDA Primary Care Unavailable DILEEP MAIDA Primary Care Unavailable PATRICIA HARRIS Attending Unavailable DILEEP, MAIDA Primary Care Unavailable THERESE DINERO Attending Unavailable Adelfo Banks Attending Provider Unavailamna e Adelfo Banks Attending Unavailable Adelfo Banks Attending Unavailable Adelfo Banks Attending Unavailable Adelfo Banks Attending Unavailable Allergies Allergy Classification Reported Allergen(s) Allergy Type Date of Onset Reaction(s) Facility (5 sources) Adhesive Tape Propensity to adverse reactions to drug 5 [place], [place] (5 sources) Penicillins Propensity to adverse reactions to drug 5 [place] (5 sources) Sulfonamides (Antibiotic) Propensity to adverse reactions to drug 5 [place] (1 source) ADHESIVE TAPE-SILICONES; Translations: [ADHESIVE TAPE-SILICONES] Propensity to adverse reactions to drug (disorder) 0 [facility] Other [place] [facility] Medications Current Medications Medication Drug Class(es) [...] 03-27-2021 atorvastatin (LIPITOR) 40 mg tablet B Eplvxvu-Dbvrog-SR (VITAMIN B50 COMPLEX PO) (5 sources) B [...] 03-27-2021 vitamin D2 ergocalciferol (DRISDOL) 1.25 MG (82266 UT) capsule gabapentin 300 mg oral capsule [...] Start: 05-15-2019 take 1 tablet by mani th twice daily glipiZIDE (GLUCOTROL) 10 MG tablet [...] Problem Classification Problem Date Documented Date Episodic/Chronic Administrative/social admission (1 source) Need for assistance with personal care; Translations: [Need for assistance with personal care] Onset: 03-20-2025 Episodic Anxiety disorders (11 sources) Anxiety; Translations: [Anxiety disorder, unspecified] Onset: 01-01-2019 01-01-2019 Chronic Diabetes mellitus with complications (1 source) Type 2 diabetes mellitus with hyperglycemia; Translations: [Uncontrolled type 2 diabetes mellitus with hyperglycemia (HCC)] Onset: 07-06-2020 Chronic Diabetes mellitus without complication (13 sources) Diabetes mellitus without complication; Translations: [Type 2 diabetes mellitus] Onset: 06-16-2015 06-16-2015 Chronic Disorders of lipid metabolism (12 sources) Hyperlipidemia; Translations: [Hyperlipidemia, unspecified] Onset: 06-16-2015 06-16-2015 Chronic Disorders of teeth and jaw (2 sources) Chronic periodontitis; Translations: [Chronic periodontitis, unspecified] Onset: 11-08-2022 Chronic Disorders of teeth and jaw (5 sources) Carious exposure of pulp ; Translations: [Dental caries, unspecified] Onset: 06-19-2022 Episodic Essential hypertension (3 sources) Benign hypertension; Translations: [...] staple removal] Episodic Other connective tissue disease (2 sources) Rhabdomyolysis; Translations: [Rhabdomyolysis] Onset: 01-22-2025 Episodic Other connective tissue disease (1 source) Muscle weakness (generalized); Translations: [Muscle weakness (generalized)] Onset: 01-22-2025 Episodic Other nervous system disorders (1 source) Cognitive communication deficit; 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] Onset: 01-22-2025 Chronic Other nutritional; endocrine; and metabolic disorders (10 sources) Morbid obesity; Translations: [Morbid (severe) obesity due to excess calories] Onset: 01-20-2020 01-20-2020 Chronic Other nutritional; endocrine; and metabolic disorders (1 source) Body mass index (BMI) 45.0-49.9, adult; Translations: [Body mass index (BMI) 45.0-49.9, adult ([facility])] Onset: 04-17-2022 Chronic Septicemia (except in labor) [...] biological substances status] Onset: 06-16-2015 06-16-2015 Episodic Other connective tissue disease (1 source) [...] 01-11-2025 Anion gap [Moles/Vol] 10 mmol/L - [facility] BUN/creatinine ratioOrdered By: Adelfo Dhaliwal on 01-11-2025 Urea nitrogen/Creatinine [Mass ratio] 32.4 mg/mg High - [facility] CBC-Complete Blood Cnt No Di ffon 01-11-2025 Erythrocyte distribution width (RBC) [Ratio] 12.4 % Normal 11.6-14.6 [facility] Comment on above: Order Comment: 119-1 Performed By: #### L 100.0500 #### [facility] Laboratory [facility] [place], [address] Hematocrit (Bld) [Volume fraction] 42.8 % Normal 37-47 [facility] Comment on above: Order Comment: 119-1 Performed By: #### L 100.0500 #### [facility] Laboratory [address] [place], [address] Hemoglobin (Bld) [Mass/Vol] 14.1 g/dL Normal 12.0-15.0 [facility] Comment on above: Order Comment: 119-1 Performed By: #### L 100.0500 #### [facility] [address] [place], [address] MCH (RBC) [Entitic mass] 31.6 pg Normal 27.0-32.0 [facility] Comment on above: Order Comment: 119-1 Performed By: #### L 100.0500 #### [facility] [address] [place], [address] MCHC (RBC) [Mass/Vol] 32.9 g/dL Normal 32-36 [facility] Comment on above: Order Comment: 119-1 Performed By: #### L 100.0500 #### [facility] [address] [place], [address] MCV (RBC) [Entitic vol] 96.0 fL Normal 81-99 [facility] Comment on above: Order Comment: 119-1 Performed By: #### L 100.0500 #### [facility] [address] [place], [address] Platelet mean volume (Bld) [Entitic vol] 9.6 fL Normal 6.2-12.0 [facility] Comment on above: Order Comment: 119-1 Performed By: #### L 100.0500 #### [facility] [address] [place], [address] Platelets (Bld) [#/Vol] 234 10*3/uL Normal 150-450 [facility] Comment on above: Order Comment: 119-1 Performed By: #### L 100.0500 #### [facility] [address] [place], [place], [id number] (529) RBC (Bld) [#/Vol] 4.46 10*6/uL Normal 4.2-5.4 [facility] Comment on above: Order Comment: 119-1 Performed By: #### L 100.0500 #### [facility] [address] [place], [address] RDW SD 44.0 fl High 35.1-43.9 [facility] Comment on above: Order Comment: 119-1 Performed By: #### L 100.0500 #### [facility] [address] [place], [address] WBC (Bld) [#/Vol] 8.7 10*3/uL Normal 4.4-11.0 [facility] Comment on above: Order Comment: 119-1 Performed By: #### L 100.0500 #### [facility] [address] [place], [place], [id number] Calculated very low density lipoprotein (VLDL) cholesterol measurementOrdered By: Adelfo Dhaliwal on 01-11-2025 Calculated very low density lipoprotein (VLDL) cholesterol measurement 31 mg/dL 5-40 [facility] Carbon dioxide, total [Moles /volume] in Central venous bloodOrdered By: Adelfo Dhaliwal on 01-11-2025 CO2 [Moles/Vol] 26.7 mmol/L 21.0-32.0 [facility] Chloride assayOrdered By: Danielle Dhaliwal on 01-11-2025 Chloride [Moles/Vol] 103 mmol/L 98-108 [facility] Erythrocyte distribution wid th ratioOrdered By: Abelino Underwood on 01-11-2025 Erythrocyte distribution width (RBC) [Ratio] 12.4 % 11.6-14.6 [facility] Erythrocyte distribution wid th standard deviationOrdered By: Abelino Underwood on 01-11-2025 Erythrocyte distribution width (RBC) [Ratio] 44.0 fl High 35.1-43.9 [facility] Glomerular filtration rate ( GFR) estimation/1.73 sq m using serum, plasma, or whole bOrdered By: Adelfo Dhaliwal on 01-11-2025 GFR/1.73 sq M.predicted among non-blacks MDRD (S/P/Bld) [Vol rate/Area] 92 mL/min/{1.73_m2} >60 [facility] Comment on above: mL/min/1.73m2 CKD-EP I Creatinine Equation (2020) Hematocrit Auto (Bld) [Volum e fraction]Ordered By: Abelino Underwood on 01-11-2025 Hematocrit (Bld) [Volume fraction] 42.8 % 37-47 [facility] Hemoglobin A1c percentageOrd ered By: Adelfo Dhaliwal on 01-11-2025 HbA1c (Bld) [Mass fraction] 8.0 % High <5.7 [facility] Comment on above: Normal < 5.7 % Predi abetic 5.7 - 6.4 % Diabetic >or= 6.5 % Please note range changes. Hemoglobin measurementOrdere d By: Abelino Underwood on 01-11-2025 Hemoglobin (Bld) [Mass/Vol] 14.1 g/dL 12.0-15.0 [facility] LDL calc ser/plasOrdered By: Adelfo Dhaliwal on 01-11-2025 Cholesterol in LDL [Mass/Vol] 169 mg/dL [facility] Comment on above: Fmqnldsaow=190-309 m g/dL & Higher Osqv=556 mg/dL or greater MCV (mean corpuscular volume ) determinationOrdered By: Abelino Underwood on 01-11-2025 MCV (RBC) [Entitic vol] 96.0 fL 81-99 [facility] Magnesium measurement (mass/ volume)Ordered By: Adelfo Dhaliwal on 01-11-2025 Magnesium (Unsp spec) [Mass/Vol] 1.9 mg/dL 1.5-2.2 [facility] Mean corpuscular hemoglobin (MCH) determinationOrdered By: Abelino Underwood on 01-11-2025 MCH (RBC) [Entitic mass] 31.6 pg 27.0-32.0 [facility] Mean corpuscular hemoglobin concentration (MCHC) determinationOrdered By: Abelino Underwood on 01-11-2025 MCHC (RBC) [Mass/Vol] 32.9 g/dL 32-36 [facility] Mean platelet volume determi nationOrdered By: Abelino Underwood on 01-11-2025 Platelet mean volume (Bld) [Entitic vol] 9.6 fL 6.2-12.0 [facility] Platelet countOrdered By: Raphael Barnes on 01-11-2025 Platelets (Bld) [#/Vol] 234 10*3/uL 150-450 [facility] Potassium measurement (mass/ volume)Ordered By: Adelfo Dhaliwal on 01-11-2025 Potassium (Unsp spec) [Mass/Vol] 4.2 mmol/L 3.3-5.1 [facility] RBC Auto (Bld) [#/Vol]Ordere d By: Abelino Underwood on 01-11-2025 RBC (Bld) [#/Vol] 4.46 10*6/uL 4.2-5.4 [facility] Screening total cholesterol/ high density lipoprotein (HDL) cholesterol ratioOrdered By: Adelfo Dhaliwal on 01-11-2025 Cholesterol.total/Choles terol in HDL [Mass ratio] 5.68 {ratio} [facility] Serum creatinine measurement (mass/volume)Ordered By: Adelfo Dhaliwal on 01-11-2025 Creatinine [Mass/Vol] 0.45 mg/dL Low 0.70-1.20 [facility] Serum glucose measurement (m ass/volume)Ordered By: Adelfo Dhaliwal on 01-11-2025 Glucose [Mass/Vol] 143 mg/dL High 70-99 [facility] Serum or plasma calcium ivette urement (mass/volume)Ordered By: Adelfo Dhaliwal on 01-11-2025 Calcium [Mass/Vol] 9.7 mg/dL 7.6-11.0 [facility] Serum or plasma cholesterol in HDL measurement (mass/volume)Ordered By: Adelfo Dhaliwal on 01-11-2025 Cholesterol in HDL [Mass/Vol] 43 mg/dL >40 [facility] Comment on above: National Cholesterol Education Program (NCEP) guidelines:<40 mg/dL: Low HDL-cholesterol (major risk factor for CHD)>= 60 mg/dL: High HDL-cholesterol (negative risk factor for CHD)HDL-cholesterol is affected by a number of factors, e.g. smoking, exercise, hormones, sex and age. Serum or plasma cholesterol measurement (mass/volume)Ordered By: Adelfo Dhaliwal on 01-11-2025 Cholesterol [Mass/Vol] 243 mg/dL High <201 [facility] Comment on above: Cholesterol level, D esirable <200 mg/dLBorderline high cholesterol 200-239 mg/dLHigh cholesterol >=240 mg/dLRecommendations of the NCEP Adult Treatment Panel for the following risk-cutoff thresholds for the [place] population. Serum or plasma triiodothyro nine (T3) measurement (mass/volume)Ordered By: Adelfo Dhaliwal on 01-11-2025 T3 [Mass/Vol] 0.70 ng/mL Low 0.80-2.00 [facility] Serum or plasma urea nitroge n measurement (mass/volume)Ordered By: Adelfo Dhaliwal on 01-11-2025 Urea nitrogen [Mass/Vol] 15 mg/dL 4-19 [facility] Sodium levelOrdered By: Tahir Dhaliwal on 01-11-2025 Sodium [Moles/Vol] 139 mmol/L 133-145 [facility] TSH DL <= 0.005 mIU/L QnOrde red By: Adelfo Dhaliwal on 01-11-2025 TSH Qn 2.080 uIU/mL 0.300-4.200 [facility] ThyroxineOrdered By: Adelfo Dhaliwal on 01-11-2025 T4 [Mass/Vol] 6.7 ug/dL 4.8-13.9 [facility] Triglycerides measurementOrd ered By: Adelfo Dhaliwal on 01-11-2025 Triglyceride [Mass/Vol] 154 mg/dL <199 [facility] Comment on above: The drugs N-Acetylcy steine and Metamizole may falsely depress this assay. Normal range: <150 mg/dLBorderline High: 150-199 mg/dLHigh: 200-499 mg/dLVery High: >500 mg/dL White blood cell (WBC) count Ordered By: Abelino Underwood on 01-11-2025 WBC (Bld) [#/Vol] 8.7 10*3/uL 4.4-11.0 [facility] CBC W Auto Differential pane l (Bld)on 12-23-2024 Basophils (Bld) [#/Vol] 0.05 10*3/uL Normal <0.11 [facility] Comment on above: Order Comment: Speci men Type: BLOOD SPECIMEN Ordering Facility: [facility] Address: [address] [place] [address] Performed By: #### 5 7021-8 #### [facility] CLIA [id number] [address] [place] [address] [place] Basophils/100 WBC (Bld) 0.5 % Normal [facility] Comment on above: Order Comment: Speci men Type: BLOOD SPECIMEN Ordering Facility: [facility] Address: [address] [place] [address] Performed By: #### 5 7021-8 #### [facility] CLIA [id number] [address] [place] [address] [place] Differential cell count method Nom (Bld) Auto Normal [facility] Comment on above: Order Comment: Speci men Type: BLOOD SPECIMEN Ordering Facility: [facility] Address: [address] [place] [address] Performed By: #### 5 7021-8 #### [facility] CLIA [id number] [address] [place] [address] [place] Eosinophils (Bld) [#/Vol] 0.27 10*3/uL Normal <0.46 [facility] Comment on above: Order Comment: Speci men Type: BLOOD SPECIMEN Ordering Facility: [facility] Address: [address] [place] [address] Performed By: #### 5 7021-8 #### [facility] CLIA [id number] [address] [place] Eosinophils/100 WBC (Bld) 2.9 % Normal [facility] Comment on above: Order Comment: Speci men Type: BLOOD SPECIMEN Ordering Facility: [facility] Address: [address] [place] [address] Performed By: #### 5 7021-8 #### [facility] CLIA [id number] [address] [place] Erythrocyte distribution width (RBC) [Ratio] 12.9 % Normal 11.5-15.0 [facility] Comment on above: Order Comment: Speci men Type: BLOOD SPECIMEN Ordering Facility: [facility] Address: [address] [place] [address] Performed By: #### 5 7021-8 #### [facility] CLIA [id number] [address] [place] Hematocrit (Bld) [Volume fraction] 43.7 % Normal 36.0-46.0 [facility] Comment on above: Order Comment: Speci men Type: BLOOD SPECIMEN Ordering Facility: [facility] Address: [address] [place] [address] Performed By: #### 5 7021-8 #### [facility] CLIA [id number] [address] [place] Hemoglobin (Bld) [Mass/Vol] 14.3 g/dL Normal 11.5-15.5 [facility] Comment on above: Order Comment: Speci men Type: BLOOD SPECIMEN Ordering Facility: [facility] Address: [address] [place] [address] Performed By: #### 5 7021-8 #### [facility] CLIA [id number] [address] [place] Immature granulocytes (Bld) [#/Vol] 0.04 10*3/uL Normal <0.10 [facility] Comment on above: Order Comment: Speci men Type: BLOOD SPECIMEN Ordering Facility: [facility] Address: [address] [place] [address] Performed By: #### 5 7021-8 #### [facility] CLIA [id number] [address] [place] Immature granulocytes/100 WBC (Bld) 0.4 % Normal [facility] Comment on above: Order Comment: Speci men Type: BLOOD SPECIMEN Ordering Facility: [facility] Address: [address] [place] [address] Performed By: #### 5 7021-8 #### [facility] CLIA [id number] [address] Lymphocytes (Bld) [#/Vol] 3.54 10*3/uL Normal 1.00-4.00 [facility] Comment on above: Order Comment: Speci men Type: BLOOD SPECIMEN Ordering Facility: [facility] Address: [address] [place] [address] Performed By: #### 5 7021-8 #### [facility] CLIA [id number] [address] Lymphocytes/100 WBC (Bld) 38.6 % Normal [facility] Comment on above: Order Comment: Speci men Type: BLOOD SPECIMEN Ordering Facility: [facility] Address: [address] [place] [address] Performed By: #### 5 7021-8 #### [facility] CLIA [id number] [address] MCH (RBC) [Entitic mass] 31.4 pg Normal 26.0-34.0 [facility] Comment on above: Order Comment: Speci men Type: BLOOD SPECIMEN Ordering Facility: [facility] Address: [address] [place] [address] Performed By: #### 5 7021-8 #### [facility] CLIA [id number] [address] MCHC (RBC) [Mass/Vol] 32.7 g/dL Normal 30.5-36.0 [facility] Comment on above: Order Comment: Speci men Type: BLOOD SPECIMEN Ordering Facility: [facility] Address: [address] [place] [address] Performed By: #### 5 7021-8 #### [facility] CLIA [id number] [address] MCV (RBC) [Entitic vol] 96.0 fL Normal 80.0-100.0 [facility] Comment on above: Order Comment: Speci men Type: BLOOD SPECIMEN Ordering Facility: [facility] Address: [address] [place] [address] Performed By: #### 5 7021-8 #### [facility] CLIA [id number] [address] [place] [address] [place] Monocytes (Bld) [#/Vol] 0.59 10*3/uL Normal <0.87 [facility] Comment on above: Order Comment: Speci men Type: BLOOD SPECIMEN Ordering Facility: [facility] Address: [address] [place] [address] Performed By: #### 5 7021-8 #### [facility] CLIA [id number] [address] [place] [address] [place] Monocytes/100 WBC (Bld) 6.4 % Normal [facility] Comment on above: Order Comment: Speci men Type: BLOOD SPECIMEN Ordering Facility: [facility] Address: [address] [place] [address] Performed By: #### 5 7021-8 #### [facility] CLIA [id number] [address] [place] [address] [place] Neutrophils (Bld) [#/Vol] 4.68 10*3/uL Normal 1.45-7.50 [facility] Comment on above: Order Comment: Speci men Type: BLOOD SPECIMEN Ordering Facility: [facility] Address: [address] [place] [address] Performed By: #### 5 7021-8 #### [facility] CLIA [id number] [address] [place] Neutrophils/100 WBC (Bld) 51.2 % Normal [facility] Comment on above: Order Comment: Speci men Type: BLOOD SPECIMEN Ordering Facility: [facility] Address: [address] [place] [address] Performed By: #### 5 7021-8 #### [facility] CLIA [id number] [address] [place] [address] [place] Nucleated RBC (Bld) [#/Vol] 10*3/uL Normal <0.01 [facility] Comment on above: Order Comment: Speci men Type: BLOOD SPECIMEN Ordering Facility: [facility] Address: [address] [place] [address] Performed By: #### 5 7021-8 #### [facility] CLIA [id number] [address] [place] [address] [place] Nucleated RBC/100 WBC (Bld) [Ratio] 0.0 /100 WBC Normal [facility] Comment on above: Order Comment: Speci men Type: BLOOD SPECIMEN Ordering Facility: [facility] Address: [address] [place] [address] Performed By: #### 5 7021-8 #### [facility] CLIA [id number] [address] [place] [address] [place] Platelet mean volume (Bld) [Entitic vol] 9.8 fL Normal 9.0-12.7 [facility] Comment on above: Order Comment: Speci men Type: BLOOD SPECIMEN Ordering Facility: [facility] Address: [address] [place] [address] Performed By: #### 5 7021-8 #### [facility] CLIA [id number] [address] [place] [address] [place] Platelets (Bld) [#/Vol] 255 10*3/uL Normal 150-400 [facility] Comment on above: Order Comment: Speci men Type: BLOOD SPECIMEN Ordering Facility: [facility] Address: [address] [place] [address] Performed By: #### 5 7021-8 #### [facility] CLIA [id number] [address] [place] [address] [place] RBC (Bld) [#/Vol] 4.55 10*6/uL Normal 3.90-5.20 [facility] Comment on above: Order Comment: Speci men Type: BLOOD SPECIMEN Ordering Facility: [facility] Address: [address] [place] [address] Performed By: #### 5 7021-8 #### [facility] CLIA [id number] [address] [place] [address] [place] WBC (Bld) [#/Vol] 9.17 10*3/uL Normal 3.70-11.00 [facility] Comment on above: Order Comment: Speci men Type: BLOOD SPECIMEN Ordering Facility: [facility] Address: [address] [place] [address] Performed By: #### 5 7021-8 #### [facility] CLIA [id number] [address] [place] [address] [place] Comprehensive metabolic 2000 panelon 12-23-2024 Albumin [Mass/Vol] 3.7 g/dL Low 3.9-4.9 [facility] Comment on above: Order Comment: Speci men Type: BLOOD SPECIMEN Ordering Facility: [facility] Address: [address] [place] [address] Performed By: #### 2 4323-8, 3040-3 #### [facility] CLIA [id number] [address] [place] ALP [Catalytic activity/Vol] 86 U/L Normal 34-123 [facility] Comment on above: Order Comment: Speci men Type: BLOOD SPECIMEN Ordering Facility: [facility] Address: [address] [place] [address] Performed By: #### 2 4323-8, 3040-3 #### [facility] CLIA [id number] [address] ALT [Catalytic activity/Vol] 9 U/L Normal 7-38 [facility] Comment on above: Order Comment: Speci men Type: BLOOD SPECIMEN Ordering Facility: [facility] Address: [address] [place] [address] Performed By: #### 2 4323-8, 3040-3 #### [facility] CLIA [id number] [address] Anion gap [Moles/Vol] 8 mmol/L Normal 8-15 [facility] Comment on above: Order Comment: Speci men Type: BLOOD SPECIMEN Ordering Facility: [facility] Address: [address] [place] [address] Performed By: #### 2 4323-8, 3040-3 #### [facility] CLIA [id number] [address] AST [Catalytic activity/Vol] 12 U/L Low 13-35 [facility] Comment on above: Order Comment: Speci men Type: BLOOD SPECIMEN Ordering Facility: [facility] Address: [address] [place] [address] Performed By: #### 2 4323-8, 3040-3 #### [facility] CLIA [id number] [address] [place] [address] [place] Bilirubin [Mass/Vol] 0.7 mg/dL Normal 0.2-1.3 [facility] Comment on above: Order Comment: Speci men Type: BLOOD SPECIMEN Ordering Facility: [facility] Address: [address] [place] [address] Performed By: #### 2 4323-8, 3040-3 #### [facility] CLIA [id number] [address] [place] [address] [place] Calcium [Mass/Vol] 9.7 mg/dL Normal 8.5-10.2 [facility] Comment on above: Order Comment: Speci men Type: BLOOD SPECIMEN Ordering Facility: [facility] Address: [address] [place] [address] Performed By: #### 2 4323-8, 0-3 #### [facility] CLIA [id number] [address] [place] [address] [place] Chloride [Moles/Vol] 103 mmol/L Normal 98-107 [facility] Comment on above: Order Comment: Speci men Type: BLOOD SPECIMEN Ordering Facility: [facility] Address: [address] [place] [address] Performed By: #### 2 4323-8, 0-3 #### [facility] CLIA [id number] [address] [place] [address] [place] CO2 [Moles/Vol] 30 mmol/L Normal 22-30 [facility] Comment on above: Order Comment: Speci men Type: BLOOD SPECIMEN Ordering Facility: [facility] Address: [address] [place] [address] Performed By: #### 2 4323-8, 3040-3 #### [facility] CLIA [id number] [address] [place] [address] [place] Creatinine [Mass/Vol] 0.47 mg/dL Low 0.58-0.96 [facility] Comment on above: Order Comment: Speci men Type: BLOOD SPECIMEN Ordering Facility: [facility] Address: [address] [place] [address] Performed By: #### 2 4323-8, 3040-3 #### [facility] CLIA [id number] [address] [place] [address] [place] Creatinine and Glomerular filtration rate.predicted panel (S/P/Bld) 91 mL/min/1.73m??? Normal >=60 [facility] Comment on above: Order Comment: Jose garcia Type: BLOOD SPECIMEN Ordering Facility: [facility] Address: [address] [place] [address] Result Comment: Lisa mated Glomerular Filtration Rate [...] actual GFR. Performed By: #### 2 4323-8, 3039-3 #### [facility] CLIA [id number] [address] [place] [address] [place] Glucose [Mass/Vol] 161 mg/dL High 74-99 [facility] Comment on above: Order Comment: Jose garcia Type: BLOOD SPECIMEN Ordering Facility: [facility] Address: [address] [place] [address] Result Comment: The [employer] (ADA) provides guidance for cutoff [...] Standards of Medical Care in Diabetes 2016, [employer]. Diabetes Care. 2016.39(Suppl 1). Performed By: #### 2 4323-8, 0-3 #### [facility] CLIA [id number] [address] [place] [address] [place] Potassium [Moles/Vol] 4.5 mmol/L Normal 3.7-5.1 [facility] Comment on above: Order Comment: Speci men Type: BLOOD SPECIMEN Ordering Facility: [facility] Address: [address] [place] [address] Performed By: #### 2 4323-8, 3040-3 #### [facility] CLIA [id number] [address] [place] [address] [place] Protein [Mass/Vol] 6.5 g/dL Normal 6.3-8.0 [facility] Comment on above: Order Comment: Speci men Type: BLOOD SPECIMEN Ordering Facility: [facility] Address: [address] [place] [address] Performed By: #### 2 4323-8, 3040-3 #### [facility] CLIA [id number] [address] [place] [address] [place] Sodium [Moles/Vol] 141 mmol/L Normal 136-144 [facility] Comment on above: Order Comment: Speci men Type: BLOOD SPECIMEN Ordering Facility: [facility] Address: [address] [place] [address] Performed By: #### 2 4323-8, 3040-3 #### [facility] CLIA [id number] [address] [place] [address] [place] Urea nitrogen [Mass/Vol] 15 mg/dL Normal 7-21 [facility] Comment on above: Order Comment: Speci men Type: BLOOD SPECIMEN Ordering Facility: [facility] Address: [address] [place] [address] Performed By: #### 2 4323-8, 3040-3 #### [facility] CLIA [id number] [address] [place] [address] [place] Albumin [Mass/Vol] 3.7 g/dL Low 3.9-4.9 [facility] Comment on above: Order Comment: Speci men Type: BLOOD SPECIMEN Ordering Facility: [facility] Address: [address] [place] [address] Performed By: #### 1 239, 72526-9 #### [facility] CLIA [id number] [address] [place] [address] [place] ALP [Catalytic activity/Vol] Normal [facility] Comment on above: Order Comment: Speci men Type: BLOOD SPECIMEN Ordering Facility: [facility] Address: [address] [place] [address] Result Comment: Unab le to assay due to interference from hemolysis. Suggest reorder as clinically indicated. Performed By: #### 1 9123-04, 68817-7 #### [facility] CLIA [id number] [address] ALT [Catalytic activity/Vol] Normal [facility] Comment on above: Order Comment: Speci men Type: BLOOD SPECIMEN Ordering Facility: [facility] Address: [address] [place] [address] Result Comment: Unab le to assay due to interference from hemolysis. Suggest reorder as clinically indicated. Performed By: #### 1 9123-04, 88746-1 #### [facility] CLIA [id number] [address] [place] [address] [place] [facility] Anion gap [Moles/Vol] Normal [facility] Comment on above: Order Comment: Speci men Type: BLOOD SPECIMEN Ordering Facility: [facility] Address: [address] [place] [address] Result Comment: Unab le to calculate due to hemolysis. Performed By: #### 1 239, 82099-7 #### [facility] CLIA [id number] [address] [place] [address] [place] AST [Catalytic activity/Vol] Normal [facility] Comment on above: Order Comment: Speci men Type: BLOOD SPECIMEN Ordering Facility: [facility] Address: [address] [place] [address] Result Comment: Unab le to assay due to interference from hemolysis. Suggest reorder as clinically indicated. Performed By: #### 1 23, 23788-2 #### [facility] CLIA [id number] [address] [place] [address] [place] Bilirubin [Mass/Vol] 0.6 mg/dL Normal 0.2-1.3 [facility] Comment on above: Order Comment: Speci men Type: BLOOD SPECIMEN Ordering Facility: [facility] Address: [address] [place] [address] Performed By: #### 1 9, #### [facility] CLIA [id number] [address] [place] [address] [place] Calcium [Mass/Vol] 9.8 mg/dL Normal 8.5-10.2 [facility] Comment on above: Order Comment: Speci men Type: BLOOD SPECIMEN Ordering Facility: [facility] Address: [address] [place] [address] Performed By: #### 1 9, #### [facility] CLIA [id number] [address] [place] [address] [place] Chloride [Moles/Vol] 100 mmol/L Normal 98-107 [facility] Comment on above: Order Comment: Speci men Type: BLOOD SPECIMEN Ordering Facility: [facility] Address: [address] [place] [address] Performed By: #### 1 9, #### [facility] CLIA [id number] [address] [place] [address] [place] CO2 [Moles/Vol] Normal [facility] Comment on above: Order Comment: Speci men Type: BLOOD SPECIMEN Ordering Facility: [facility] Address: [address] [place] [address] Result Comment: Unab le to assay due to interference from hemolysis. Suggest reorder as clinically indicated. Performed By: #### 1 23-9, 55681-8 #### [facility] CLIA [id number] [address] [place] [address] [place] Creatinine [Mass/Vol] 0.35 mg/dL Low 0.58-0.96 [facility] Comment on above: Order Comment: Speci men Type: BLOOD SPECIMEN Ordering Facility: [facility] Address: [address] [place] [address] Performed By: #### 1 239, 56452-2 #### [facility] CLIA [id number] [address] [place] [address] [place] Creatinine and Glomerular filtration rate.predicted panel (S/P/Bld) 98 mL/min/1.73m??? Normal >=60 [facility] Comment on above: Order Comment: Jose garcia Type: BLOOD SPECIMEN Ordering Facility: [facility] Address: [address] [place] [address] Result Comment: Lisa mated Glomerular Filtration Rate [...] actual GFR. Performed By: #### 1 9123-9, 23932-4 #### [facility] CLIA [id number] [address] [place] [address] [place] Glucose [Mass/Vol] 150 mg/dL High 74-99 [facility] Comment on above: Order Comment: Jose garcia Type: BLOOD SPECIMEN Ordering Facility: [facility] Address: [address] [place] [address] Result Comment: The [employer] (ADA) provides guidance for cutoff [...] Standards of Medical Care in Diabetes 2016, [employer]. Diabetes Care. 2016.39(Suppl 1). Performed By: #### 1 9123-9, 65885-7 #### [facility] CLIA [id number] [address] [place] [address] [place] Potassium [Moles/Vol] Normal [facility] Comment on above: Order Comment: Jose garcia Type: BLOOD SPECIMEN Ordering Facility: [facility] Address: [address] [place] [address] Result Comment: Unab le to assay due to interference from hemolysis. Suggest reorder as clinically indicated. Performed By: #### 1 9123-9, 13100-1 #### [facility] CLIA [id number] [address] [place] [address] [place] Protein [Mass/Vol] Normal [facility] Comment on above: Order Comment: Speci men Type: BLOOD SPECIMEN Ordering Facility: [facility] Address: [address] [place] [address] Result Comment: Unab le to assay due to interference from hemolysis. Suggest reorder as clinically indicated. Performed By: #### 1 9123-9, 04226-0 #### [facility] CLIA [id number] [address] [place] [address] [place] Sodium [Moles/Vol] 135 mmol/L Low 136-144 [facility] Comment on above: Order Comment: Speci men Type: BLOOD SPECIMEN Ordering Facility: [facility] Address: [address] [place] [address] Performed By: #### 1 9123-9, 12243-3 #### [facility] CLIA [id number] [address] [place] [address] [place] Urea nitrogen [Mass/Vol] 16 mg/dL Normal 7-21 [facility] Comment on above: Order Comment: Speci men Type: BLOOD SPECIMEN Ordering Facility: [facility] Address: [address] [place] [address] Performed By: #### 1 9123-9, 82816-5 #### [facility] CLIA [id number] [address] [place] [address] [place] ED NOTEon 12-23-2024 ED NOTE HNO ID: [id number] Author: THERESE ZAVALA RN Service: Nursing Author Type: Registered Nurse Type: ED Notes Filed: 12/23/2024 12:59 Note Text: Report given to MMT transport at bedside. [facility] ED NOTE HNO ID: [id number] Author: THERESE ZAVALA RN Service: Nursing Author Type: Registered Nurse Type: ED Notes Filed: 12/23/2024 12:21 Note Text: Report called to nursing facility by this RN. [facility] ED NOTE HNO ID: [id number] Author: MILEY KABA, NINFA Service: ? Author Type: Registered Nurse Type: ED Notes Filed: 12/23/2024 06:17 Note Text: Pt incontinent of large amount of urine. Pt cleaned up and external catheter placed. [facility] ED PROGRESS NOTE (PROVIDER)o n 12-23-2024 ED PROGRESS NOTE (PROVIDER) HNO ID: [id number] Author: THERESE DINERO DO Service: Emergency Medicine [...] 23, 2024 TIME: 8:37 AM PAGER/CONTACT #: [facility] ED PROV NOTEon 12-23-2024 ED PROV NOTE HNO ID: [id number] Author: CAMERON NEVAREZ DO Service: Emergency Medicine Author Type: Physician Type: ED Provider Notes Filed: 12/23/2024 06:17 Note Text: ED Provider Note Patient Name: Raudel Ahumada : 1935 SERVICE DATE: 12/23/24 History Patient presents with: Altered Level Of Consciousness: Pt BIB EMS from [facility]. Per EMS the [facility]dc staff was unable to wake her this [...] changes in stool. History provided by: Patient paper supervisor used: No PAST MEDICAL HISTORY Diagnosis Date [...] Clinical Impression ED Course as of 12/23/24 06 Cameron Nevarez's Documentation SatDecember 23, 2024 0627 CBC unremarkable Clinical Impressions as of 12/23/24 0628 Uncontrolled type 2 diabetes mellitus with hyperglycemia (HCC) Essential hypertension (more content not included)... Normal [facility] Lipase SerPl-cCncon 12-24-19 25 Lipase [Catalytic activity/Vol] 10 U/L Low 16- [facility] Comment on above: Order Comment: Speci men Type: BLOOD SPECIMENOrdering Facility: [facility] Address: [address] [place], [place] [address] Performed By: #### 2 4323-8, 3040-3 ####[facility] [id number] [address] Magnesium SerPl-mCncon 12-23 Magnesium [Mass/Vol] 2.0 mg/dL Normal 1.7-2.3 [facility] Comment on above: Order Comment: Speci men Type: BLOOD SPECIMEN Ordering Facility: [facility] Address: [address] [place] [address] Performed By: #### 1 9123-9, 85170-6 #### [facility] CLIA [id number] [address] Urinalysis complete panel (U )on 12-23-2024 Bacteria LM.HPF (Urine sed) [#/Area] Rare Abnormal None Seen [facility] Comment on above: Order Comment: Speci men Type: URINE SPECIMEN Ordering Facility: [facility] Address: [address] [place] [address] Performed By: #### 2 4356-8 #### [facility] CLIA [id number] [address] Bilirubin Ql (U) Negative Normal Negative [facility] Comment on above: Order Comment: Speci men Type: URINE SPECIMEN Ordering Facility: [facility] Address: [address] [place] [address] Performed By: #### 2 4356-8 #### [facility] CLIA [id number] [address] Clarity (Unsp spec) Clear Normal Clear [facility] Comment on above: Order Comment: Speci men Type: URINE SPECIMEN Ordering Facility: [facility] Address: [address] [place] [address] Performed By: #### 2 4356-8 #### [facility] CLIA [id number] [address] Color (U) Yellow Normal Yellow [facility] Comment on above: Order Comment: Speci men Type: URINE SPECIMEN Ordering Facility: [facility] Address: [address] [place] [address] Performed By: #### 2 4356-8 #### [facility] CLIA [id number] [address] Epithelial cells LM.HPF (Urine sed) [#/Area] Few Normal [facility] Comment on above: Order Comment: Speci men Type: URINE SPECIMEN Ordering Facility: [facility] Address: [address] [place] [address] Performed By: #### 2 4356-8 #### [facility] CLIA [id number] [address] [place] Glucose Test strip (U) [Mass/Vol] Negative Normal Negative [facility] Comment on above: Order Comment: Speci men Type: URINE SPECIMEN Ordering Facility: [facility] Address: [address] [place] [address] Performed By: #### 2 4356-8 #### [facility] CLIA [id number] [address] Hemoglobin Ql (U) Negative Normal Negative [facility] Comment on above: Order Comment: Speci men Type: URINE SPECIMEN Ordering Facility: [facility] Address: [address] [place] [address] Performed By: #### 2 4356-8 #### [facility] CLIA [id number] [address] Ketones Ql (U) Negative Normal Negative [facility] Comment on above: Order Comment: Speci men Type: URINE SPECIMEN Ordering Facility: [facility] Address: [address] [place] [address] Performed By: #### 2 4356-8 #### [facility] CLIA [id number] [address] [place] Leukocyte esterase Test strip Ql (U) Negative Normal Negative [facility] Comment on above: Order Comment: Speci men Type: URINE SPECIMEN Ordering Facility: [facility] Address: [address] [place] [address] Performed By: #### 2 4356-8 #### [facility] CLIA [id number] [address] [place] [address] [place] Nitrite Ql (U) Negative Normal Negative [facility] Comment on above: Order Comment: Speci men Type: URINE SPECIMEN Ordering Facility: [facility] Address: [address] [place] [address] Performed By: #### 2 4356-8 #### [facility] CLIA [id number] [address] pH (U) 7.0 [pH] Normal 5.0-8.0 [facility] Comment on above: Order Comment: Speci men Type: URINE SPECIMEN Ordering Facility: [facility] Address: [address] [place] [address] Performed By: #### 2 4356-8 #### [facility] CLIA [id number] [address] Protein (U) [Mass/Vol] Negative Normal Negative [facility] Comment on above: Order Comment: Speci men Type: URINE SPECIMEN Ordering Facility: [facility] Address: [address] [place] [address] Performed By: #### 2 4356-8 #### [facility] CLIA [id number] [address] RBC LM.HPF (Urine sed) [#/Area] 0-3 /HPF Normal 0-3 /HPF [facility] Comment on above: Order Comment: Speci men Type: URINE SPECIMEN Ordering Facility: [facility] Address: [address] [place] [address] Performed By: #### 2 4356-8 #### [facility] CLIA [id number] [address] Specific gravity (U) [Rel density] 1.015 Normal 1.005-1.030 [facility] Comment on above: Order Comment: Speci men Type: URINE SPECIMEN Ordering Facility: [facility] Address: [address] [place] [address] Performed By: #### 2 4356-8 #### [facility] CLIA [id number] [address] Urobilinogen Ql (U) 0.2 EU/dL Normal 0.2-1.0 EU/dL [facility] Comment on above: Order Comment: Speci men Type: URINE SPECIMEN Ordering Facility: [facility] Address: [address] [place], [place] [address] [place] [address] Performed By: #### 2 4356-8 #### [facility] CLIA [id number] [address] [place] [address] [place] WBC LM.HPF (Urine sed) [#/Area] 0-5 /HPF Normal 0-5 /HPF [facility] Comment on above: Order Comment: Speci men Type: URINE SPECIMEN Ordering Facility: [facility] Address: [address] [id number] Performed By: #### 2 4356-8 #### [facility] CLIA [id number] [address] [place] [address] [place] Basophil percentageOrdered B y: Adelfo Dhaliwal on 11-11-2023 Cholesterol [Mass/Vol] 224 mg/dL <200 [facility] Comment on above: <200 mg/dL Desirable 200-240 mg/dL Borderline >240 mg/dL High Risk Triglyceride [Mass/Vol] 194 mg/dL <199 [facility] Comment on above: The drugs N-Acetylcy steine and Metamizole may falsely depress this assay.Serum Triglycerides Reference Interval Normal <150 mg/dL Borderline high 150 - 199 mg/dL High 200 - 499 mg/dL Very High > or = 500 mg/dL Laboratory - Chemistry and C hemistry - challengeOrdered By: Adelfo Dhaliwal on 11-11-2023 Cholesterol in HDL [Mass/Vol] 50 mg/dL >40 [facility] Comment on above: The drugs N-Acetylcy steine and Metamizole may falsely depress this assay. Reference Range HDL <40 mg/dL Low HDL Cholesterol HDL >or= 60 mg/dL High HDL Cholesterol Cholesterol in LDL [Mass/Vol] 135 mg/dL 0-130 [facility] No Panel InformationOrdered By: Adelfo Dhaliwal on 11-11-2023 VLDL Cholesterol 39 mg/dL 5-40 [facility] FLUAV H1+H3+FLUBV RNA CINTHIA+pr obe Ql (Unsp spec)Ordered By: Adelfo Dhaliwal on 11-03-2023 Influenza Types A & B (PCR) Influenzae A [facility] Basophil percentageOrdered B y: Adelfo Dhaliwal on 03-11-2024 Chloride [Moles/Vol] 107 mmol/L 98-107 [facility] Glucose [Mass/Vol] 133 mg/dL 74-106 [facility] Comment on above: Fasting Glucose resu lt greater than or equal to 126 mg/dL suggests DIABETES MELLITUS per A.D.A. criteria. Hemoglobin (Bld) [Mass/Vol] 14.4 g/dL 12.0-15.0 [facility] Potassium [Moles/Vol] 4.0 mmol/L 3.5-5.1 [facility] Sodium [Moles/Vol] 140 mmol/L 136-145 [facility] WBC (Bld) [#/Vol] 8.4 10*3/uL 4.4-11.0 [facility] Bilirubin Test strip Ql (U)O rdered By: Adelfo Dhaliwal on 10-21-2023 Bilirubin Ql (U) Negative Negative [facility] Culture, urineOrdered By: anselmo Dhaliwal on 10-21-2023 Bacteria identified Cx Nom (U) Mixed Gram Pos & Gram Neg Org [facility] Determination of erythrocyte mean corpuscular volume (MCV)Ordered By: Adelfo Dhaliwal on 10-21-2023 MCV (RBC) [Entitic vol] 95.3 fL 81-99 [facility] Erythrocyte distribution wid th ratioOrdered By: Adelfo Dhaliwal on 10-21-2023 Erythrocyte distribution width (RBC) [Ratio] 12.6 % 11.6-14.6 [facility] Erythrocyte distribution wid th standard deviationOrdered By: Adelfo Dhaliwal on 10-21-2023 Erythrocyte distribution width (RBC) [Entitic vol] 43.8 fL 35.1-43.9 [facility] Hematocrit Auto (Bld) [Volum e fraction]Ordered By: Adelfo Dhaliwal on 10-21-2023 Hematocrit (Bld) [Volume fraction] 44.7 % 37-47 [facility] Ketones Test strip Ql (U)Ord ered By: Adelfo Dhaliwal on 10-21-2023 Ketones Ql (U) Negative Negative [facility] Laboratory - Chemistry and C hemistry - challengeOrdered By: Adelfo Dhaliwal on 10-21-2023 CO2 [Moles/Vol] 27.0 mmol/L 21.0-32.0 [facility] Urea nitrogen/Creatinine [Mass ratio] 22.0 mg/mg 10-20 [facility] Laboratory - Hematology and Cell countsOrdered By: Adelfo Dhaliwal on 10-21-2023 MCH (RBC) [Entitic mass] 30.7 pg 27.0-32.0 [facility] MCHC (RBC) [Mass/Vol] 32.2 g/dL 32-36 [facility] Platelet mean volume (Bld) [Entitic vol] 9.9 fL 6.2-12.0 [facility] Platelets (Bld) [#/Vol] 259 10*3/uL 150-450 [facility] Nitrite Test strip Ql (U)Ord ered By: Adelfo Dhaliwal on 10-21-2023 Nitrite Ql (U) Negative Negative [facility] No Panel InformationOrdered By: Adelfo Dhaliwal on 10-21-2023 Estimated GFR (MDRD) Amer 149 mL/min >60 [facility] Comment on above: GFR Calc Estimated GFR (MDRD) Non-Af Amer 124 mL/min >60 [facility] Comment on above: Non- GFR Calc Protein Test strip Ql (U)Ord ered By: Adelfo Dhaliwal on 10-21-2023 Protein Ql (U) Negative Negative [facility] RBC Auto (Bld) [#/Vol]Ordere d By: Adelfo Dhaliwal on 10-21-2023 RBC (Bld) [#/Vol] 4.69 10*6/uL 4.2-5.4 [facility] Serum or plasma calcium ivette urement (mass/volume)Ordered By: Adelfo Dhaliwal on 10-21-2023 Calcium [Mass/Vol] 9.7 mg/dL 8.5-10.1 [facility] Serum or plasma creatinine m easurement (mass/volume)Ordered By: Adelfo Dhaliwal on 10-21-2023 Creatinine [Mass/Vol] 0.50 mg/dL 0.55-1.02 [facility] Comment on above: The validity of the calculated GFR & GFRAA in patients over 70 years has not been determined. Clinical correlation is essential. Serum or plasma urea nitroge n measurement (mass/volume)Ordered By: Adelfo Dhaliwal on 10-21-2023 Urea nitrogen [Mass/Vol] 11 mg/dL 7-18 [facility] Thin prep Papanicolaou smear with manual screeningOrdered By: Adelfo Dhaliwal on 10-21-2023 Thin prep Papanicolaou smear with manual screening 6 5-15 [facility] Urine blood detectionOrdered By: Adelfo Dhaliwal on 10-21-2023 RBC Ql (U) Negative Negative [facility] Urine clarityOrdered By: Paul Dhaliwal on 10-21-2023 Clarity (U) Sl. Cloudy Clear [facility] Urine color determinationOrd ered By: Adelfo Dhaliwal on 10-21-2023 Color (U) Yellow Yellow [facility] Urine glucose detectionOrder ed By: Adelfo Dhaliwal on 10-21-2023 Glucose Ql (U) Normal mg/dl Normal [facility] Urine leukocyte esterase det ection by dipstickOrdered By: Adelfo Dhaliwal on 10-21-2023 Leukocyte esterase Test strip Ql (U) 25 /ul Negative [facility] Urine pHOrdered By: Adelfo ortiz on 10-21-2023 pH (U) 7.0 [pH] 5.0 - 8.0 [facility] Urine specific gravity measu rementOrdered By: Adelfo Dhaliwal on 10-21-2023 Specific gravity (U) [Rel density] 1.010 1.002-1.030 [facility] Urine urobilinogen measureme ntOrdered By: Adelfo Dhaliwal on 10-21-2023 Urobilinogen Ql (U) Normal mg/dl Normal [facility] Bilirubin Test strip Ql (U)O rdered By: Adelfo Dhaliwal on 07-15-2023 Bilirubin Ql (U) Negative Negative [facility] Culture, urineOrdered By: Danielle Dhaliwal on 07-15-2023 Bacteria identified Cx Nom (U) Culture exhibits no growth. [facility] Bacteria identified Cx Nom (U) Culture exhibits no growth. [facility] Ketones Test strip Ql (U)Ord ered By: Adelfo Dhaliwal on 07-15-2023 Ketones Ql (U) Negative Negative [facility] Nitrite Test strip Ql (U)Ord ered By: Adelfo Dhaliwal on 07-15-2023 Nitrite Ql (U) Negative Negative [facility] Protein Test strip Ql (U)Ord ered By: Adelfo Dhaliwal on 07-15-2023 Protein Ql (U) 30 mg/dl Negative [facility] Urine blood detectionOrdered By: Adelfo Dhaliwal on 07-15-2023 RBC Ql (U) 50 /ul Negative [facility] Urine clarityOrdered By: Paul Dhaliwal on 07-15-2023 Clarity (U) Sl. Cloudy Clear [facility] Urine color determinationOrd ered By: Adelfo Dhaliwal on 07-15-2023 Color (U) Yellow Yellow [facility] Urine glucose detectionOrder ed By: Adelfo Dhaliwal on 07-15-2023 Glucose Ql (U) Normal mg/dl Normal [facility] Urine leukocyte esterase det ection by dipstickOrdered By: Adelfo Dhaliwal on 07-15-2023 Leukocyte esterase Test strip Ql (U) Negative Negative [facility] Urine pHOrdered By: Adelfo ortiz on 07-15-2023 pH (U) 5.0 [pH] 5.0 - 8.0 [facility] Urine specific gravity measu rementOrdered By: Adelfo Dhaliwal on 07-15-2023 Specific gravity (U) [Rel density] 1.025 1.002-1.030 [facility] Urobilinogen Auto test strip Ql (U)Ordered By: Adelfo Dhaliwal on 07-15-2023 Urobilinogen Ql (U) Normal mg/dl Normal [facility] Basophil percentageOrdered B y: Adelfo Dhaliwal on 07-12-2023 Cholesterol [Mass/Vol] 124 mg/dL <200 [facility] Comment on above: <200 mg/dL Desirable 200-240 mg/dL Borderline >240 mg/dL High Risk Triglyceride [Mass/Vol] 156 mg/dL <199 [facility] Comment on above: The drugs N-Acetylcy steine and Metamizole may falsely depress this assay.Serum Triglycerides Reference Interval Normal <150 mg/dL Borderline high 150 - 199 mg/dL High 200 - 499 mg/dL Very High > or = 500 mg/dL Laboratory - Chemistry and C hemistry - challengeOrdered By: Adelfo Dhaliwal on 07-12-2023 T4 [Mass/Vol] 10.3 ug/dL 4.8-13.9 [facility] No Panel InformationOrdered By: Adelfo Dhaliwal on 07-12-2023 Thyroid Stimulating Hormone (TSH) 0.98 uIU/mL 0.358-3.74 [facility] Total Triiodothyronine 0.84 ng/mL 0.6-1.81 [facility] Vitamin D 25-Hydroxy 61.9 ng/mL [facility] Comment on above: Vitamin D 25(OH) Sta tus Range Deficiency <20 ng/mL (50nmol/L) Insufficiency 20 - 30 ng/mL (50 - 75 nmol/L) Sufficiency 30 - 100 ng/mL (75 - 250 nmol/L) Toxicity >100 ng/mL (>250 nmol/L) Serum or plasma cholesterol in HDL measurement (mass/volume)Ordered By: Adelfo Dhaliwal on 07-12-2023 Cholesterol in HDL [Mass/Vol] 46 mg/dL >40 [facility] Comment on above: The drugs N-Acetylcy steine and Metamizole may falsely depress this assay. Reference Range HDL <40 mg/dL Low HDL Cholesterol HDL >or= 60 mg/dL High HDL Cholesterol Serum or plasma cholesterol in VLDL measurement (mass/volume)Ordered By: Adelfo Dhaliwal on 07-12-2023 Cholesterol in VLDL [Mass/Vol] 31 mg/dL 5-40 [facility] Serum or plasma low density lipoprotein (LDL) cholesterol measurement (mass/volume)Ordered By: Adelfo Dhaliwal on 07-12-2023 Cholesterol in LDL [Mass/Vol] 47 mg/dL 0-130 [facility] Basophil percentageOrdered B y: Adelfo Dhaliwal on 06-10-2023 Chloride [Moles/Vol] 106 mmol/L 98-107 [facility] Glucose [Mass/Vol] 209 mg/dL 74-106 [facility] Comment on above: Glucose result great er than or equal to 200 mg/dLsuggests DIABETES MELLITUS per A.D.A. criteria. Potassium [Moles/Vol] 3.9 mmol/L 3.5-5.1 [facility] Sodium [Moles/Vol] 135 mmol/L 136-145 [facility] WBC (Bld) [#/Vol] 11.1 10*3/uL 4.4-11.0 [facility] Blood erythrocytes count (nu mber/volume)Ordered By: Adelfo Dhaliwal on 06-10-2023 RBC (Bld) [#/Vol] 4.52 10*6/uL 4.2-5.4 [facility] Blood hemoglobin measurement (mass/volume)Ordered By: Adelfo Dhaliwal on 06-10-2023 Hemoglobin (Bld) [Mass/Vol] 13.8 g/dL 12.0-15.0 [facility] Blood platelet mean volumeOr dered By: Adelfo Dhaliwal on 06-10-2023 Platelet mean volume (Bld) [Entitic vol] 10.1 fL 6.2-12.0 [facility] Determination of erythrocyte mean corpuscular volume (MCV)Ordered By: Adelfo Dhaliwal on 06-10-2023 MCV (RBC) [Entitic vol] 96.7 fL 81-99 [facility] Hematocrit Auto (Bld) [Volum e fraction]Ordered By: Adelfo Dhaliwal on 06-10-2023 Hematocrit (Bld) [Volume fraction] 43.7 % 37-47 [facility] Laboratory - Chemistry and C hemistry - challengeOrdered By: Adelfo Dhaliwal on 06-10-2023 CO2 [Moles/Vol] 27.0 mmol/L 21.0-32.0 [facility] Urea nitrogen/Creatinine [Mass ratio] 28.3 mg/mg 10-20 [facility] Laboratory - Hematology and Cell countsOrdered By: Adelfo Dhaliwal on 06-10-2023 Erythrocyte distribution width (RBC) [Entitic vol] 44.8 fL 35.1-43.9 [facility] Erythrocyte distribution width (RBC) [Ratio] 12.5 % 11.6-14.6 [facility] MCH (RBC) [Entitic mass] 30.5 pg 27.0-32.0 [facility] MCHC Auto (RBC) [Mass/Vol]Or dered By: Adelfo Dhaliwal on 06-10-2023 MCHC (RBC) [Mass/Vol] 31.6 g/dL 32-36 [facility] No Panel InformationOrdered By: Adelfo Dhaliwal on 06-10-2023 Estimated GFR (MDRD) Amer 152 mL/min >60 [facility] Comment on above: GFR Calc Estimated GFR (MDRD) Non-Af Amer 125 mL/min >60 [facility] Comment on above: Non- GFR Calc Platelets bldOrdered By: Paul Dhaliwal on 06-10-2023 Platelets (Bld) [#/Vol] 262 10*3/uL 150-450 [facility] Serum or plasma calcium ivette urement (mass/volume)Ordered By: Adelfo Dhaliwal on 06-10-2023 Calcium [Mass/Vol] 9.3 mg/dL 8.5-10.1 [facility] Serum or plasma creatinine m easurement (mass/volume)Ordered By: Adelfo Dhaliwal on 06-10-2023 Creatinine [Mass/Vol] 0.50 mg/dL 0.55-1.02 [facility] Comment on above: The validity of the calculated GFR & GFRAA in patients over 70 years has not been determined. Clinical correlation is essential. Serum or plasma urea nitroge n measurement (mass/volume)Ordered By: Adelfo Dhaliwal on 06-10-2023 Urea nitrogen [Mass/Vol] 14 mg/dL - [facility] Thin prep Papanicolaou smear with manual screeningOrdered By: Adelfo Dhaliwal on 06-10-2023 Thin prep Papanicolaou smear with manual screening 2 5-15 [facility] Whole blood hemoglobin A1c/t otal hemoglobin ratio (mass fraction)Ordered By: Adelfo Dhaliwal on 06-10-2023 HbA1c (Bld) [Mass fraction] 8.0 % 3.8-5.6 [facility] Comment on above: Normal < 5.7 % Predi abetic 5.7 - 6.4 % Diabetic >or= 6.5 % Please note range changes. Office Visiton 02-25-2023 Follow-up visit [id number] Raudel Ahumada 1935 F Date Provider Department Center 02/25/2023 [id number] HARRIS MG SM WAD None Family History Problem Relation Age of Onset Diabetes Mother Coronary artery disease Brother Stroke Mother Cancer Brother Heart disease Father Diabetes Brother Heart disease Mother Stroke Brother Heart disease Brother Family Status - Relation Status Age at Mother Brother Father Level of Service:62594 [facility] OFFICE/OUTPATIENT NEW LOW MDM 30-44 MINUTES Reason for Visit and Comments: Back Pain [12] - Left lower leg Normal [facility] Progress Noteon 02-25-2023 Progress Note [facility] [address] [place] [address] Dept: [phone] Dept Chief Complaint Patient presents with Back [...] surgery: no 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 No significant change in her back pain for 3 years. 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 We recommended continued maintenance of her strength level and continued formal physical therapy. We will go ahead and write an order for her to get formal physical therapy at [facility] care for her chronic weakness. Follow-up with neurology for any potential care for her left hemiparesis. Follow up if symptoms worsen or fail to improve, for call our office with any questions at [phone]. Patricia Harris MD 02/25/2023 10:03 AM Please note that portions of this note may have been completed with voice recognition software. (more content not included)... Normal [facility] Basophil percentageOrdered B y: Adelfo Dhaliwal on 02-14-2023 Chloride [Moles/Vol] 108 mmol/L 98-107 [facility] Glucose [Mass/Vol] 128 mg/dL 74-106 [facility] Comment on above: Fasting Glucose resu lt greater than or equal to 126 mg/dL suggests DIABETES MELLITUS per A.D.A. criteria. Potassium [Moles/Vol] 4.0 mmol/L 3.5-5.1 [facility] Sodium [Moles/Vol] 143 mmol/L 136-145 [facility] Laboratory - Chemistry and C hemistry - challengeOrdered By: Adelfo Dhaliwal on 02-14-2023 CO2 [Moles/Vol] 29.0 mmol/L 21.0-32.0 [facility] Urea nitrogen/Creatinine [Mass ratio] 32.2 mg/mg 10-20 [facility] No Panel InformationOrdered By: Adelfo Dhaliwal on 02-14-2023 Estimated GFR (MDRD) Amer 176 mL/min >60 [facility] Comment on above: GFR Calc Estimated GFR (MDRD) Non-Af Amer 146 mL/min >60 [facility] Comment on above: Non- GFR Calc Serum or plasma calcium ivette urement (mass/volume)Ordered By: Adelfo Dhaliwal on 02-14-2023 Calcium [Mass/Vol] 9.5 mg/dL 8.5-10.1 [facility] Serum or plasma creatinine m easurement (mass/volume)Ordered By: Adelfo Dhaliwal on 02-14-2023 Creatinine [Mass/Vol] 0.44 mg/dL 0.55-1.02 [facility] Comment on above: The validity of the calculated GFR & GFRAA in patients over 70 years has not been determined. Clinical correlation is essential. Serum or plasma urea nitroge n measurement (mass/volume)Ordered By: Adelfo Dhaliwal on 02-14-2023 Urea nitrogen [Mass/Vol] 14 mg/dL 7-18 [facility] Serum or plasma uric acid me asurement (mass/volume)Ordered By: Adelfo Dhaliwal on 02-14-2023 Urate [Mass/Vol] 4.9 mg/dL 2.6-6.0 [facility] Comment on above: The drugs N-Acetylcy steine and Metamizole may falsely depress this assay. Thin prep Papanicolaou smear with manual screeningOrdered By: Adelfo Dhaliwal on 02-14-2023 Thin prep Papanicolaou smear with manual screening 6 5-15 [facility] Basophil percentageOrdered B y: Adelfo Dhaliwal on 01-16-2023 Cholesterol [Mass/Vol] 121 mg/dL <200 [facility] Comment on above: <200 mg/dL Desirable 200-240 mg/dL Borderline >240 mg/dL High Risk Triglyceride [Mass/Vol] 124 mg/dL <199 [facility] Comment on above: The drugs N-Acetylcy steine and Metamizole may falsely depress this assay.Serum Triglycerides Reference Interval Normal <150 mg/dL Borderline high 150 - 199 mg/dL High 200 - 499 mg/dL Very High > or = 500 mg/dL Laboratory - Chemistry and C hemistry - challengeOrdered By: Adelfo Dhaliwal on 01-16-2023 Magnesium [Mass/Vol] 2.1 mg/dL 1.6-2.6 [facility] Comment on above: Slight Hemolysis, Re sult may be falsely increased. No Panel InformationOrdered By: Adelfo Dhaliwal on 01-16-2023 Thyroid Stimulating Hormone (TSH) 1.03 uIU/mL 0.358-3.74 [facility] Vitamin D 25-Hydroxy 80.6 ng/mL [facility] Comment on above: Vitamin D 25(OH) Sta tus Range Deficiency <20 ng/mL (50nmol/L) Insufficiency 20 - 30 ng/mL (50 - 75 nmol/L) Sufficiency 30 - 100 ng/mL (75 - 250 nmol/L) Toxicity >100 ng/mL (>250 nmol/L) Serum or plasma cholesterol in HDL measurement (mass/volume)Ordered By: Adelfo Dhaliwal on 01-16-2023 Cholesterol in HDL [Mass/Vol] 46 mg/dL >40 [facility] Comment on above: The drugs N-Acetylcy steine and Metamizole may falsely depress this assay. Reference Range HDL <40 mg/dL Low HDL Cholesterol HDL >or= 60 mg/dL High HDL Cholesterol Serum or plasma cholesterol in VLDL measurement (mass/volume)Ordered By: Adelfo Dhaliwal on 01-16-2023 Cholesterol in VLDL [Mass/Vol] 25 mg/dL 5-40 [facility] Serum or plasma low density lipoprotein (LDL) cholesterol measurement (mass/volume)Ordered By: Adelfo Dhaliwal on 01-16-2023 Cholesterol in LDL [Mass/Vol] 50 mg/dL 0-130 [facility] Whole blood hemoglobin A1c/t otal hemoglobin ratio (mass fraction)Ordered By: Adelfo Dhaliwal on 01-09-2023 HbA1c (Bld) [Mass fraction] 8.4 % 3.8-5.6 [facility] Comment on above: Normal < 5.7 % Predi abetic 5.7 - 6.4 % Diabetic >or= 6.5 % Please note range changes. Telephone Encounteron 2022 [employer] Authentication Interface Message Text Patient is calling [...] pick them up. Pls call pt @ [phone] Thank you Normal [facility] [employer] Interface Message Text Spoke with patient regarding her dentures. Explained to her that Dr. Ayala does not make dentures. Provided the contact information for [facility] and explained that if these dentures have been made by a [facility] provider, this is the department that will have them, otherwise she will need to see an outside dentist to have dentures made. Patient understood. Titus Ramirez DMD chartered financial analyst, PGY-3 Team Pager: [phone] Normal [facility] [employer] Authentication Interface Message Text The patient called [...] about this and can be reached at [phone] Thank You! Normal [facility] Laboratory - Chemistry and C hemistry - challengeOrdered By: Adelfo Dhaliwal on 10-30-2022 Magnesium [Mass/Vol] 1.8 mg/dL 1.6-2.6 [facility] Whole blood hemoglobin A1c/t otal hemoglobin ratio (mass fraction)Ordered By: Adelfo Dhaliwal on 10-30-2022 HbA1c (Bld) [Mass fraction] 6.6 % 3.8-5.6 [facility] Comment on above: Normal < 5.7 % Predi abetic 5.7 - 6.4 % Diabetic >or= 6.5 % Please note range changes. Basophil percentageOrdered B y: Adelfo Dhaliwal on 10-01-2022 Chloride [Moles/Vol] 107 mmol/L 98-107 [facility] Glucose [Mass/Vol] 125 mg/dL 74-106 [facility] Comment on above: Fasting Glucose resu lt from 100 to 125 mg/dL suggests IMPAIRED HOMEOSTASIS per A.D.A. criteria. Potassium [Moles/Vol] 4.3 mmol/L 3.5-5.1 [facility] Sodium [Moles/Vol] 140 mmol/L 136-145 [facility] Laboratory - Chemistry and C hemistry - challengeOrdered By: Adelfo Dhaliwal on 10-01-2022 CO2 [Moles/Vol] 24.0 mmol/L 21.0-32.0 [facility] Urea nitrogen/Creatinine [Mass ratio] 23.6 mg/mg - [facility] No Panel InformationOrdered By: Adelfo Dhaliwal on 10-01-2022 Estimated GFR (MDRD) Amer 134 mL/min >60 [facility] Comment on above: GFR Calc Estimated GFR (MDRD) Non-Af Amer 111 mL/min >60 [facility] Comment on above: Non- GFR Calc Serum or plasma calcium ivette urement (mass/volume)Ordered By: Adelfo Dhaliwal on 10-01-2022 Calcium [Mass/Vol] 9.8 mg/dL 8.5-10.1 [facility] Serum or plasma creatinine m easurement (mass/volume)Ordered By: Adelfo Dhaliwal on 10-01-2022 Creatinine [Mass/Vol] 0.55 mg/dL 0.55-1.02 [facility] Comment on above: The validity of the calculated GFR & GFRAA in patients over 70 years has not been determined. Clinical correlation is essential. Serum or plasma urea nitroge n measurement (mass/volume)Ordered By: Adelfo Dhaliwal on 10-01-2022 Urea nitrogen [Mass/Vol] 13 mg/dL 7-18 [facility] Thin prep Papanicolaou smear with manual screeningOrdered By: Adelfo Dhaliwal on 10-01-2022 Thin prep Papanicolaou smear with manual screening 9 5-15 [facility] Patient Instructionson 06-19 [employer] Authentication Interface Message Text Dental extraction Instructions [...] done to speak with an oral surgeon. [facility] [phone]. HELPING THE HEALING PROCESS AND STOPPING THE [...] c (more content not included)... Normal [facility] [facility] Progress Noteson 06-19-2022 [employer] Authentication Interface Message Text Normal [facility] Telephone Encounteron 2021 [employer] Authentication Interface Message Text Keerthi from [facility] called to confirm the Pa was approved. Approval noted 05/28. Please call [phone] to schedule the patient. Thank you! Normal [facility] Telephone Encounteron 2021 [employer] Authentication Interface Message Text Patient is calling again asking what's the update of her PA, and when would be the surgery date/time. Please reach out to pt. Thank you! Normal [facility] Telephone Encounteron 2021 [employer] Authentication Interface Message Text Steffi aHle floorworker from [facility] called regarding the patient. Steffi states the patient has decided to use our services for Oral surgery. Patient had a consultation on 04/17, and Steffi would like to go forward with the process. Once the insurance approves the surgery, please call [facility] and speak to the [address] [place] [address] nurse to schedule at [phone]. Thank you! Normal [facility] Progress Noteson 04-18-2022 [employer] Authentication Interface Message Text Teaching Physician Note: I saw and evaluated the patient. I personally obtained the otero and critical portions of the history and physical exam. I reviewed the resident's documentation and discussed the patient with the resident. I agree with the resident's medical decision making as documented in the resident's note. López Ayala DDS Normal [facility] Patient Instructionson 04-17 [employer] Authentication Interface Message Text Dental extraction Instructions [...] done to speak with an oral surgeon. [facility] [phone]. HELPING THE HEALING PROCESS AND STOPPING THE [...] c (more content not included)... Normal [facility] Progress Noteson 04-17-2022 [employer] Authentication Interface Message Text Tooth #3 Normal [facility] [place] [employer] Authentication Interface Message Text [facility] PATIENT VISIT CHIEF COMPLAINT: Toothache HISTORY OF PRESENT ILLNESS: 86 yo F with pmhx significant for T2DM, obesity, COPD, and asthma presents to the [facility] clinic for consult for extraction of remaining [...] that the future [place]. Informed patient about today's appointment was a consultation and all procedures are completed here on main [place], [address], or [place]. Discussed sedation. Pt wanted to be asleep, [...] with us or a local surgeon near [place]. Will also require PANO for patient as there was no pano sent from referring provider prior to the time the appointment. Jules Moore DMD Normal [facility] Basophil percentageon 2021 Bilirubin [Mass/Vol] 0.80 mg/dL 0.20-1.00 [facility] Work Phone: Comment on above: For patients on eltr ombopag therapy, use of Dimension [place] TBIL is not recommended. Chloride [Moles/Vol] 107 mmol/L 98-107 [facility] Work Phone: Cholesterol [Mass/Vol] 150 mg/dL <200 [facility] Work Phone: Comment on above: <200 mg/dL Desirable 200-240 mg/dL Borderline >240 mg/dL High Risk Glucose [Mass/Vol] 135 mg/dL 74-106 [facility] Work Phone: Comment on above: Fasting Glucose resu lt greater than or equal to 126 mg/dL suggests DIABETES MELLITUS per A.D.A. criteria. Potassium [Moles/Vol] 4.1 mmol/L 3.5-5.1 [facility] Work Phone: Comment on above: Slight Hemolysis, Re sult may be falsely increased. Protein [Mass/Vol] 6.6 g/dL 6.4-8.2 [facility] Work Phone: Sodium [Moles/Vol] 140 mmol/L 136-145 [facility] Work Phone: Triglyceride [Mass/Vol] 105 mg/dL [facility] Work Phone: Comment on above: The drugs N-Acetylcy steine and Metamizole may falsely depress this assay.Serum Triglycerides Reference Interval Normal <150 mg/dL Borderline high 150 - 199 mg/dL High 200 - 499 mg/dL Very High > or = 500 mg/dL WBC (Bld) [#/Vol] 7.9 10*3/uL 4.4-11.0 [facility] Work Phone: Blood erythrocytes count (nu mber/volume)on 12-21-2021 RBC (Bld) [#/Vol] 4.28 10*6/uL 4.2-5.4 [facility] Work Phone: Blood hemoglobin measurement (mass/volume)on 12-21-2021 Hemoglobin (Bld) [Mass/Vol] 13.4 g/dL 12.0-15.0 [facility] Work Phone: Blood platelet mean volumeon 12-21-2021 Platelet mean volume (Bld) [Entitic vol] 9.8 fL 6.2-12.0 [facility] Work Phone: Determination of erythrocyte mean corpuscular volume (MCV)on 12-21-2021 MCV (RBC) [Entitic vol] 96.5 fL 81-99 [facility] Work Phone: Hematocrit Auto (Bld) [Volum e fraction]on 12-21-2021 Hematocrit (Bld) [Volume fraction] 41.3 % 37-47 [facility] Work Phone: Laboratory - Chemistry and C hemistry - challengeon 12-21-2021 ALP [Catalytic activity/Vol] 120 U/L 45-117 [facility] Work Phone: ALT [Catalytic activity/Vol] 23 U/L 13-56 [facility] Work Phone: CO2 [Moles/Vol] 29.0 mmol/L 21.0-32.0 [facility] Work Phone: Globulin (S) [Mass/Vol] 3.6 g/dL 2.2-4.2 [facility] Work Phone: Urea nitrogen/Creatinine [Mass ratio] 31.4 mg/mg 10-20 [facility] Work Phone: Laboratory - Hematology and Cell countson 12-21-2021 Erythrocyte distribution width (RBC) [Entitic vol] 44.5 fL 35.1-43.9 [facility] Work Phone: Erythrocyte distribution width (RBC) [Ratio] 12.6 % 11.6-14.6 [facility] Work Phone: MCH (RBC) [Entitic mass] 31.3 pg 27.0-32.0 [facility] Work Phone: MCHC Auto (RBC) [Mass/Vol]on 12-21-2021 MCHC (RBC) [Mass/Vol] 32.4 g/dL 32-36 [facility] Work Phone: No Panel Informationon 12-21 Estimated GFR (MDRD) Amer 128 mL/min >60 [facility] Work Phone: Comment on above: GFR Calc Estimated GFR (MDRD) Non-Af Amer 106 mL/min >60 [facility] Work Phone: Comment on above: Non- GFR Calc Thyroid Stimulating Hormone (TSH) 0.70 uIU/mL 0.358-3.74 [facility] Work Phone: Vitamin D 25-Hydroxy 51.9 ng/mL [facility] Work Phone: Comment on above: Vitamin D 25(OH) Sta tus Range Deficiency <20 ng/mL (50nmol/L) Insufficiency 20 - 30 ng/mL (50 - 75 nmol/L) Sufficiency 30 - 100 ng/mL (75 - 250 nmol/L) Toxicity >100 ng/mL (>250 nmol/L) Platelets bldon 12-21-2021 Platelets (Bld) [#/Vol] 262 10*3/uL 150-450 [facility] Work Phone: Serum or plasma albumin ivette urement (mass/volume)on 12-21-2021 Albumin [Mass/Vol] 3.0 g/dL 3.2-5.0 [facility] Work Phone: Serum or plasma albumin/glob ulin mass ratioon 12-21-2021 Albumin/Globulin [Mass ratio] 0.8 {ratio} 0.9-2.4 [facility] Work Phone: Serum or plasma calcium ivette urement (mass/volume)on 12-21-2021 Calcium [Mass/Vol] 9.5 mg/dL 8.5-10.1 [facility] Work Phone: Serum or plasma cholesterol in HDL measurement (mass/volume)on 12-21-2021 Cholesterol in HDL [Mass/Vol] 57 mg/dL [facility] Work Phone: Comment on above: The drugs N-Acetylcy steine and Metamizole may falsely depress this assay. Reference Range HDL <40 mg/dL Low HDL Cholesterol HDL >or= 60 mg/dL High HDL Cholesterol Serum or plasma cholesterol in VLDL measurement (mass/volume)on 12-21-2021 Cholesterol in VLDL [Mass/Vol] 21 mg/dL 5-40 [facility] Work Phone: Serum or plasma creatinine m easurement (mass/volume)on 12-21-2021 Creatinine [Mass/Vol] 0.57 mg/dL 0.55-1.02 [facility] Work Phone: Comment on above: The validity of the calculated GFR & GFRAA in patients over 70 years has not been determined. Clinical correlation is essential. Serum or plasma low density lipoprotein (LDL) cholesterol measurement (mass/volume)on 12-21-2021 Cholesterol in LDL [Mass/Vol] 72 mg/dL 0-130 [facility] Work Phone: Serum or plasma urea nitroge n measurement (mass/volume)on 12-21-2021 Urea nitrogen [Mass/Vol] 18 mg/dL 7-18 [facility] Work Phone: Thin prep Papanicolaou smear with manual screeningon 12-21-2021 Thin prep Papanicolaou smear with manual screening 15 U/L 15- [facility] Work Phone: Comment on above: Slight Hemolysis, Re sult may be falsely increased. Thin prep Papanicolaou smear with manual screening 4 5-15 [facility] Work Phone: Whole blood hemoglobin A1c/t otal hemoglobin ratio (mass fraction)on 12-21-2021 HbA1c (Bld) [Mass fraction] 6.4 % 3.8-5.6 [facility] Work Phone: Comment on above: Normal < 5.7 % Predi abetic 5.7 - 6.4 % Diabetic >or= 6.5 % Please note range changes. CR Spine Lumbosacral 4+ View son 06-15-2020 CR Spine Lumbosacral 4+ Views Patient Name: RAUDEL AHUMADA Diagnostic Radiology Exam Date/Time 06/15/2020 14:37:53 EST Exam CR Spine Lumbosacral 4+ Views Ordering Physician MD DOSHI DIANA Accession Number [id number] CPT4 Codes 37396 () Reason For Exam lumbar back pain [...] Transcribed Date and Time: 06/15/2020 3:16 Normal [facility] XR LUMBAR SPINE (MIN 4 VIEWS )on 06-15-2020 Patient Name: RAUDEL AHUMADA ---Diagnostic Radiology--- Exam Date/Time 06/15/2020 14:37:53 EST Exam CR Spine Lumbosacral 4+ Views Ordering Physician MD DILEEP, MAIDA Accession Number [id number] CPT4 Codes 68923 () Reason For Exam lumbar back pain [...] ALFRED Transcribed Date and Time: 06/15/2020 3:16 [facility] [place], [facility], [facility] Incoming Radiology Results From [employer] - 06/15/2020 3:16 PM EST Patient Name: RAUDEL AHUMADA ---Diagnostic Radiology--- Exam Date/Time 06/15/2020 14:37:53 EST Exam CR Spine Lumbosacral 4+ Views Ordering Physician MD DILEEP, MAIDA Accession Number [id number] CPT4 Codes 01902 () Reason For Exam lumbar back pain [...] ALFRED Transcribed Date and Time: 06/15/2020 3:16 [place], [place] CBC Auto Differentialon 10-0 Absolute Baso # 0.1 10*3/uL 0 - 0.2 10*3/uL [place] Absolute Neut # 4.8 10*3/uL 1.8 - 7 10*3/uL [place] Basophils/100 WBC (Bld) 0.9 % 0 - 2 % M [place] Eosinophils (Bld) [#/Vol] 0.2 10*3/uL 0 - 0.5 10*3/uL [place] Eosinophils/100 WBC (Bld) 2.5 % 1 - 6 % [place] Erythrocyte distribution width (RBC) [Ratio] 12.9 % 11.5 - 14.5 % [place] Granulocytes/100 WBC (Bld) 52.8 % 40 - 80 % [place] Hematocrit (Bld) [Volume fraction] 46.8 % 35 - 47 % [place] Hemoglobin (Bld) [Mass/Vol] 16.2 g/dL High 11.7 - 16 g/dL [place] Interpretation and review of laboratory results Abnormal [place] Lymphocytes (Bld) [#/Vol] 3.4 10*3/uL 1 - 4.3 10*3/uL [place] Lymphocytes/100 WBC (Bld) 36.9 % 20 - 40 % [place] MCH (RBC) [Entitic mass] 31.9 pg 26 - 34 pg [place] MCHC (RBC) [Mass/Vol] 34.7 % 32 - 36 % [place] MCV (RBC) [Entitic vol] 91.8 fL 79 - 98 fL [place] Monocytes (Bld) [#/Vol] 0.6 10*3/uL 0 - 0.8 10*3/uL [place] Monocytes/100 WBC (Bld) 6.9 % 2 - 10 % [place] Platelet mean volume (Bld) [Entitic vol] 7.7 fL 7.4 - 10.4 fL [place] Platelets (Bld) [#/Vol] 298 10*3/uL 140 - 440 10*3/uL [place] RBC (Bld) [#/Vol] 5.10 10*6/uL 3.8 - 5.2 10*6/uL [place] WBC (Bld) [#/Vol] 9.1 10*3/uL 3.6 - 10.7 10*3/uL [place] Test Performed by [facility], [address] [place], [place] [address] [place] Comp Metabolic Panelon 05-12 ALT [Catalytic activity/Vol] 17 U/L Normal 0-34 [facility] Comment on above: Result Comment: The ALT test is performed by an updated assay method. Please note that the reference intervals have been changed and are now sex specific. Performed By: #### L IPD2, HEMDF, TSH5, CMP3, HA1C2 #### [facility] [address] [place] [address] Calcium [Mass/Vol] 10.5 mg/dL High 8.4-10.4 [facility] Comment on above: Performed By: #### L IPD2, HEMDF, TSH5, CMP3, HA1C2 #### [facility] [address] [place] [address] ALP [Catalytic activity/Vol] 104 U/L Normal 38-126 [facility] Comment on above: Performed By: #### L IPD2, HEMDF, TSH5, CMP3, HA1C2 #### [facility] [address] [place] [address] Anion gap [Moles/Vol] 9 Normal [facility] Comment on above: Performed By: #### L IPD2, HEMDF, TSH5, CMP3, HA1C2 #### [facility] [address] [place] [address] AST [Catalytic activity/Vol] 20 U/L Normal 15-46 [facility] Comment on above: Performed By: #### L IPD2, HEMDF, TSH5, CMP3, HA1C2 #### [facility] [address] [place] [address] Bilirubin [Mass/Vol] 1.0 mg/dL Normal 0.2-1.3 [facility] Comment on above: Performed By: #### L IPD2, HEMDF, TSH5, CMP3, HA1C2 #### [facility] [address] [place] [address] CO2 [Moles/Vol] 25 mmol/L Normal 22-30 [facility] Comment on above: Performed By: #### L IPD2, HEMDF, TSH5, CMP3, HA1C2 #### [facility] [address] [place] [address] Creatinine [Mass/Vol] 0.59 mg/dL Normal 0.52-1.25 [facility] Comment on above: Performed By: #### L IPD2, HEMDF, TSH5, CMP3, HA1C2 #### [facility] [address] [place] [address] GFR/1.73 sq M predicted among blacks MDRD (S/P/Bld) [Vol rate/Area] mL/min/{1.73_m2} Normal >60 [facility] Comment on above: Performed By: #### L IPD2, HEMDF, TSH5, CMP3, HA1C2 #### [facility] [address] [place] [address] GFR/1.73 sq M predicted among non-blacks MDRD (S/P/Bld) [Vol rate/Area] 83.9 mL/min/{1.73_m2} Normal >60 [facility] Comment on above: Result Comment: KDIG O [...] L IPD2, HEMDF, TSH5, CMP3, HA1C2 #### [facility] [address] [place] [address] Glucose [Mass/Vol] 146 mg/dL High 70-100 [facility] Comment on above: Performed By: #### L IPD2, HEMDF, TSH5, CMP3, HA1C2 #### [facility] [address] [place] [address] Protein [Mass/Vol] 7.1 g/dL Normal 6.3-8.2 [facility] Comment on above: Performed By: #### L IPD2, HEMDF, TSH5, CMP3, HA1C2 #### [facility] [address] [place] [address] Urea nitrogen [Mass/Vol] 20 mg/dL Normal 7-20 [facility] Comment on above: Performed By: #### L IPD2, HEMDF, TSH5, CMP3, HA1C2 #### [facility] [address] [place] [address] Chloride [Moles/Vol] 105 mmol/L Normal 98-107 [facility] Comment on above: Performed By: #### L IPD2, HEMDF, TSH5, CMP3, HA1C2 #### [facility] [address] [place] [address] Potassium [Moles/Vol] 4.1 mmol/L Normal 3.5-5.1 [facility] Comment on above: Performed By: #### L IPD2, HEMDF, TSH5, CMP3, HA1C2 #### [facility] [address] [place] [address] Sodium [Moles/Vol] 139 mmol/L Normal 135-145 [facility] Comment on above: Performed By: #### L IPD2, HEMDF, TSH5, CMP3, HA1C2 #### [facility] [address] [place] [address] Albumin [Mass/Vol] 4.4 g/dL Normal 3.5-5.0 [facility] Comment on above: Performed By: #### L IPD2, HEMDF, TSH5, CMP3, HA1C2 #### [facility] [address] [place] [address] Comprehensive Metabolic Pane denny 05-12-2020 Albumin [Mass/Vol] 4.4 g/dL 3.5 - 5 g/dL [place] [employer] ALP [Catalytic activity/Vol] 104 U/L 38 - 126 U/L [place] ALT [Catalytic activity/Vol] 17 U/L 0 - 34 U/L [place] Comment on above: The ALT test is perf ormed by an updated assay method. Please note that the reference intervals have been changed and are now sex specific. Anion gap [Moles/Vol] 9 mmol/L [place] AST [Catalytic activity/Vol] 20 U/L 15 - 46 U/L [place] Bilirubin Ql (U) 1.0 mg/dL 0.2 - 1.3 mg/dL [place] Calcium [Mass/Vol] 10.5 mg/dL High 8.4 - 10. 4 mg/dL [place] Chloride [Moles/Vol] 105 mmol/L 98 - 10 7 mmol/L [place] CO2 [Moles/Vol] 25 mmol/L 22 - 30 mmol/L [place] Creatinine [Mass/Vol] 0.59 mg/dL 0.52 - 1.25 mg/dL [place] EGFR IF NonAfrican Iranian 83.9 mL/min >60 [place] Comment on above: KDIGO guidelines pro [...] MDRD (S/P/Bld) [Vol rate/Area] mL/min/{1.73_m2} >60 mL/min [place] Glucose [Mass/Vol] 146 mg/dL High 70 - 100 mg/dL [place] Potassium [Moles/Vol] 4.1 mmol/L 3.5 - 5.1 mmol/L [place] Protein [Mass/Vol] 7.1 g/dL 6.3 - 8.2 g/dL [place] Sodium [Moles/Vol] 139 mmol/L 135 - 145 mmol/L [place] Urea nitrogen [Mass/Vol] 20 mg/dL 7 - 20 mg/d L [place] Hemoglobin A1Con 05-12-2020 HbA1c (Bld) [Mass fraction] 6.7 % High 4.0-6.0 [facility] Comment on above: Result Comment: --Hg bA1C levels may not be accurate in patients who have renal disease, received recent blood transfusions, are anemic, or who have dyshemoglobinemia. Performed By: #### L IPD2, HEMDF, TSH5, CMP3, HA1C2 #### [facility] [address] [place] [address] HbA1c (Bld) [Mass fraction] 146 mg/dL Normal [facility] Comment on above: Performed By: #### L IPD2, HEMDF, TSH5, CMP3, HA1C2 #### [facility] [address] [place] [address] eAG 146 mg/dL [place] HbA1c (Bld) [Mass fraction] 6.7 % High 4 - 6 % [place] Comment on above: --HgbA1C levels may not be accurate in patients who have renal disease, received recent blood transfusions, are anemic, or who have dyshemoglobinemia. Interpretation and review of laboratory results Abnormal [place] Test Performed by [facility], [address] , [place], [place] [id number] [place] [address] Hemogram w/ Autodiffon 05-12 Abs Baso Cnt 0.1 10*3/uL Normal 0.0-0.2 [facility] Comment on above: Performed By: #### L IPD2, HEMDF, TSH5, CMP3, HA1C2 #### [facility] [address] [place] [address] Abs Neutrophile Cnt 4.8 10*3/uL Normal 1.8-7.0 [facility] Comment on above: Performed By: #### L IPD2, HEMDF, TSH5, CMP3, HA1C2 #### [facility] [address] [place] [address] Basophils/100 WBC (Bld) 0.9 % Normal 0.0-2.0 [facility] Comment on above: Performed By: #### L IPD2, HEMDF, TSH5, CMP3, HA1C2 #### [facility] [address] [place] [address] Eosinophils (Bld) [#/Vol] 0.2 10*3/uL Normal 0.0-0.5 [facility] Comment on above: Performed By: #### L IPD2, HEMDF, TSH5, CMP3, HA1C2 #### [facility] [address] [place] [address] Eosinophils/100 WBC (Bld) 2.5 % Normal 1.0-6.0 [facility] Comment on above: Performed By: #### L IPD2, HEMDF, TSH5, CMP3, HA1C2 #### [facility] [address] [place] [address] Erythrocyte distribution width (RBC) [Ratio] 12.9 % Normal 11.5-14.5 [facility] Comment on above: Performed By: #### L IPD2, HEMDF, TSH5, CMP3, HA1C2 #### [facility] [address] [place] [address] Granulocytes/100 WBC (Bld) 52.8 % Normal 40.0-80.0 [facility] Comment on above: Performed By: #### L IPD2, HEMDF, TSH5, CMP3, HA1C2 #### [facility] [address] [place] [address] Hematocrit (Bld) [Volume fraction] 46.8 % Normal 35.0-47.0 [facility] Comment on above: Performed By: #### L IPD2, HEMDF, TSH5, CMP3, HA1C2 #### [facility] [address] [place] [address] Hemoglobin (Bld) [Mass/Vol] 16.2 g/dL High 11.7-16.0 [facility] Comment on above: Performed By: #### L IPD2, HEMDF, TSH5, CMP3, HA1C2 #### [facility] [address] [place] [address] Lymphocytes (Bld) [#/Vol] 3.4 10*3/uL Normal 1.0-4.3 [facility] Comment on above: Performed By: #### L IPD2, HEMDF, TSH5, CMP3, HA1C2 #### [facility] [address] [place] [address] Lymphocytes/100 WBC (Bld) 36.9 % Normal 20.0-40.0 [facility] Comment on above: Performed By: #### L IPD2, HEMDF, TSH5, CMP3, HA1C2 #### [facility] [address] [place] [address] MCH (RBC) [Entitic mass] 31.9 pg Normal 26.0-34.0 [facility] Comment on above: Performed By: #### L IPD2, HEMDF, TSH5, CMP3, HA1C2 #### [facility] [address] [place] [address] MCHC (RBC) [Mass/Vol] 34.7 % Normal 32.0-36.0 [facility] Comment on above: Performed By: #### L IPD2, HEMDF, TSH5, CMP3, HA1C2 #### [facility] [address] [place] [address] MCV (RBC) [Entitic vol] 91.8 fL Normal 79.0-98.0 [facility] Comment on above: Performed By: #### L IPD2, HEMDF, TSH5, CMP3, HA1C2 #### [facility] [address] [place] [address] Monocytes (Bld) [#/Vol] 0.6 10*3/uL Normal 0.0-0.8 [facility] Comment on above: Performed By: #### L IPD2, HEMDF, TSH5, CMP3, HA1C2 #### [facility] [address] [place] [address] Monocytes/100 WBC (Bld) 6.9 % Normal 2.0-10.0 [facility] Comment on above: Performed By: #### L IPD2, HEMDF, TSH5, CMP3, HA1C2 #### [facility] [address] [place] [address] Platelet mean volume (Bld) [Entitic vol] 7.7 fL Normal 7.4-10.4 [facility] Comment on above: Performed By: #### L IPD2, HEMDF, TSH5, CMP3, HA1C2 #### [facility] [address] [place] [address] Platelets (Bld) [#/Vol] 298 10*3/uL Normal 140-440 [facility] Comment on above: Performed By: #### L IPD2, HEMDF, TSH5, CMP3, HA1C2 #### [facility] [address] [place] [address] RBC (Bld) [#/Vol] 5.10 10*6/uL Normal 3.80-5.20 [facility] Comment on above: Performed By: #### L IPD2, HEMDF, TSH5, CMP3, HA1C2 #### [facility] [address] [place] [address] WBC (Bld) [#/Vol] 9.1 10*3/uL Normal 3.6-10.7 [facility] Comment on above: Performed By: #### L IPD2, HEMDF, TSH5, CMP3, HA1C2 #### [facility] [address] [place] [address] Lipid Panelon 05-12-2020 Cholesterol in HDL [Mass/Vol] 54 mg/dL Normal 40-60 [facility] Comment on above: Performed By: #### L IPD2, HEMDF, TSH5, CMP3, HA1C2 #### [facility] [address] [place] [address] Cholesterol.total/Choles terol in HDL [Mass ratio] 5 Normal [facility] Comment on above: Result Comment: Ref Range: < 3 Low Risk for CHD 3-6 Mod Risk for CHD > 6 High Risk for CHD Performed By: #### L IPD2, HEMDF, TSH5, CMP3, HA1C2 #### [facility] [address] [place] [address] Protein [Mass/Vol] 151 mg/dL Abnormal <100 [facility] Comment on above: Performed By: #### L IPD2, HEMDF, TSH5, CMP3, HA1C2 #### [facility] [address] [place] [address] Triglyceride [Mass/Vol] 194 mg/dL Abnormal <150 [facility] Comment on above: Performed By: #### L IPD2, HEMDF, TSH5, CMP3, HA1C2 #### [facility] [address] [place] [address] Cholesterol [Mass/Vol] 244 mg/dL Abnormal < 200 [facility] Comment on above: Performed By: #### L IPD2, HEMDF, TSH5, CMP3, HA1C2 #### [facility] [address] [place] [address] Cholesterol [Mass/Vol] 244 mg/dL Abnormal <200 [place] Cholesterol in HDL [Mass/Vol] 54 mg/dL 40 - 60 mg/dL [place] Cholesterol in LDL [Mass/Vol] 151 mg/dL Abnormal <100 [place] Cholesterol.total/Choles terol in HDL [Mass ratio] 5 {ratio} [place] Comment on above: Ref Range: < 3 Low Risk for CHD 3-6 Mod Risk for CHD > 6 High Risk for CHD Triglyceride [Mass/Vol] 194 mg/dL Abnormal <150 M [place] Otheron 05-12-2020 Interpretation and review of laboratory results Abnormal [place] Test Performed by [facility], [address] , [address] TSH without Reflexon 020 Interpretation and review of laboratory results Abnormal [place] TSH Qn 7.501 u[IU]/mL High 0.465 - 4.68 u[IU]/mL [place] Test Performed by [facility], [address] , [address] Thyroid Stim. Hormoneon Thyroid Stim. Hormone 7.501 u[IU]/mL High 0.465-4.68 0 [facility] Comment on above: Performed By: #### L IPD2, HEMDF, TSH5, CMP3, HA1C2 #### [facility] [address] [place] [address] Glucose,Bedsideon 04-30-2020 Glucose [Mass/Vol] 131 mg/dL High 70-100 [facility] Comment on above: Result Comment: Test performed by glucose meter. Results may be 10%-15% lower than serum/plasma values. (CLIA ID [id number]) Performed By: #### L IPD2, HEMDF, TSH5, CMP3, HA1C2 #### [facility] [address] [place] [address] Glucose [Mass/Vol] 137 mg/dL High 70-100 [facility] Comment on above: Result Comment: Test performed by glucose meter. Results may be 10%-15% lower than serum/plasma values. (CLIA ID [id number]) Performed By: #### B GLU #### [facility] [address] [place] [address] [id number] 04-30-2020 SARS-CoV-2 SARS-CoV-2 --> Status: F Not Detected Expected Result: Not Detected _ Real-time, RT-PCR performed on the [employer] MAX System by the [facility]. Negative results do not preclude SARS-CoV-2 infection and should not be used as the sole basis for treatment or other patient management decisions. This assay was developed by [employer] and distributed under an Emergency Use Authorization (EUA) granted by the FDA for the qualitative detection of SARS-CoV-2 nucleic acid. Results were determined from a pool consisting of specimens from additional patients. This test was modified, and its performance characteristics, showing minimal loss of sensitivity, have been validated by the [facility]. Approval is pending review by the U. S. Food and Drug Administration. If symptoms are severe and persist, testing a new specimen may be warranted. Additionally, IgG testing may be considered for patients more than 7-10 days post onset of symptoms. Expected Result: Not Detected _ Real-time, RT-PCR performed on the [employer] MAX System by the [facility]. Negative results do not preclude SARS-CoV-2 infection and should not be used as the sole basis for treatment or other patient management decisions. This assay was developed by [employer] and distributed under an Emergency Use Authorization (EUA) granted by the FDA for the qualitative detection of SARS-CoV-2 nucleic acid. Results were determined from a pool consisting of specimens from additional patients. This test was modified, and its performance characteristics, showing minimal loss of sensitivity, have been validated by the [facility]. Approval is pending review by the U. S. Food and Drug Administration. If symptoms are severe and persist, testing a new specimen may be warranted. Additionally, IgG testing may be considered for patients more than 7-10 days post onset of symptoms. Normal [facility] Comment on above: Order Comment: Speci men Source Comment:Nasopharyngeal Swab Performed By: #### L IPD2, HEMDF, TSH5, CMP3, HA1C2 #### [facility] [address] [place] [address] Basic Metabolic Panelon 04-12 Calcium [Mass/Vol] 9.7 mg/dL Normal 8.4-10.4 [facility] Comment on above: Performed By: #### L IPD2, HEMDF, TSH5, CMP3, HA1C2 #### [facility] [address] [place] [address] Glucose [Mass/Vol] 134 mg/dL High 70-100 [facility] Comment on above: Performed By: #### L IPD2, HEMDF, TSH5, CMP3, HA1C2 #### [facility] [address] [place] [address] Anion gap [Moles/Vol] 7 Normal [facility] Comment on above: Performed By: #### L IPD2, HEMDF, TSH5, CMP3, HA1C2 #### [facility] [address] [place] [address] CO2 [Moles/Vol] 26 mmol/L Normal 22-30 [facility] Comment on above: Performed By: #### L IPD2, HEMDF, TSH5, CMP3, HA1C2 #### [facility] [address] [place] [address] Creatinine [Mass/Vol] 0.48 mg/dL Low 0.52-1.25 [facility] Comment on above: Performed By: #### L IPD2, HEMDF, TSH5, CMP3, HA1C2 #### [facility] [address] [place] [address] GFR/1.73 sq M predicted among blacks MDRD (S/P/Bld) [Vol rate/Area] mL/min/{1.73_m2} Normal >60 [facility] Comment on above: Performed By: #### L IPD2, HEMDF, TSH5, CMP3, HA1C2 #### [facility] [address] [place] [address] GFR/1.73 sq M predicted among non-blacks MDRD (S/P/Bld) [Vol rate/Area] 89.8 mL/min/{1.73_m2} Normal >60 [facility] Comment on above: Result Comment: KDIG O [...] L IPD2, HEMDF, TSH5, CMP3, HA1C2 #### [facility] [address] [place] [address] Urea nitrogen [Mass/Vol] 16 mg/dL Normal 7-20 [facility] Comment on above: Performed By: #### L IPD2, HEMDF, TSH5, CMP3, HA1C2 #### [facility] [address] [place] [address] Chloride [Moles/Vol] 108 mmol/L High 98-107 [facility] Comment on above: Performed By: #### L IPD2, HEMDF, TSH5, CMP3, HA1C2 #### [facility] [address] [place] [address] Potassium [Moles/Vol] 3.8 mmol/L Normal 3.5-5.1 [facility] Comment on above: Performed By: #### L IPD2, HEMDF, TSH5, CMP3, HA1C2 #### [facility] [address] [place] [address] Sodium [Moles/Vol] 141 mmol/L Normal 135-145 [facility] Comment on above: Performed By: #### L IPD2, HEMDF, TSH5, CMP3, HA1C2 #### [facility] [address] [place] [address] Glucose,Bedsideon 04-29-2020 Glucose [Mass/Vol] 250 mg/dL [facility] [address] [facility] Comment on above: Result Comment: Test performed by glucose meter. Results may be 10%-15% lower than serum/plasma values. (CLIA ID [id number]) Performed By: #### B GLU #### [facility] [address] [place] [address] Glucose [Mass/Vol] 133 mg/dL [facility] [address] [facility] Comment on above: Result Comment: Test performed by glucose meter. Results may be 10%-15% lower than serum/plasma values. (CLIA ID [id number]) Performed By: #### L IPD2, HEMDF, TSH5, CMP3, HA1C2 #### [facility] [address] [place] [address] Glucose [Mass/Vol] 136 mg/dL [facility] 70-100 [facility] Comment on above: Result Comment: Test performed by glucose meter. Results may be 10%-15% lower than serum/plasma values. (CLIA ID [id number]) Performed By: #### L IPD2, HEMDF, TSH5, CMP3, HA1C2 #### [facility] [address] [place] [address] Glucose [Mass/Vol] 154 mg/dL [facility] [address] [facility] Comment on above: Result Comment: Test performed by glucose meter. Results may be 10%-15% lower than serum/plasma values. (CLIA ID [id number]) Performed By: #### L IPD2, HEMDF, TSH5, CMP3, HA1C2 #### [facility] [address] [place] [address] Hemogramon 04-29-2020 Erythrocyte distribution width (RBC) [Ratio] 13.1 % Normal 11.5-14.5 [facility] Comment on above: Performed By: #### L IPD2, HEMDF, TSH5, CMP3, HA1C2 #### [facility] [address] [place] [address] Hematocrit (Bld) [Volume fraction] 43.7 % Normal 35.0-47.0 [facility] Comment on above: Performed By: #### L IPD2, HEMDF, TSH5, CMP3, HA1C2 #### [facility] [address] [place] [address] Hemoglobin (Bld) [Mass/Vol] 14.3 g/dL Normal 11.7-16.0 [facility] Comment on above: Performed By: #### L IPD2, HEMDF, TSH5, CMP3, HA1C2 #### [facility] [address] [place] [address] MCH (RBC) [Entitic mass] 30.5 pg Normal 26.0-34.0 [facility] Comment on above: Performed By: #### L IPD2, HEMDF, TSH5, CMP3, HA1C2 #### [facility] [address] [place] [address] MCHC (RBC) [Mass/Vol] 32.8 % Normal 32.0-36.0 [facility] Comment on above: Performed By: #### L IPD2, HEMDF, TSH5, CMP3, HA1C2 #### [facility] [address] [place] [address] MCV (RBC) [Entitic vol] 92.9 fL Normal 79.0-98.0 [facility] Comment on above: Performed By: #### L IPD2, HEMDF, TSH5, CMP3, HA1C2 #### [facility] [address] [place] [address] Platelet mean volume (Bld) [Entitic vol] 7.4 fL Normal 7.4-10.4 [facility] Comment on above: Performed By: #### L IPD2, HEMDF, TSH5, CMP3, HA1C2 #### [facility] [address] [place] [address] Platelets (Bld) [#/Vol] 249 10*3/uL Normal 140-440 [facility] Comment on above: Performed By: #### L IPD2, HEMDF, TSH5, CMP3, HA1C2 #### [facility] [address] [place] [address] RBC (Bld) [#/Vol] 4.70 10*6/uL Normal 3.80-5.20 [facility] Comment on above: Performed By: #### L IPD2, HEMDF, TSH5, CMP3, HA1C2 #### [facility] [address] [place] [address] WBC (Bld) [#/Vol] 8.6 10*3/uL Normal 3.6-10.7 [facility] Comment on above: Performed By: #### L IPD2, HEMDF, TSH5, CMP3, HA1C2 #### [facility] [address] [place] [address] CKon 04-28-2020 CK [Catalytic activity/Vol] 62 U/L Normal 30-170 [facility] Comment on above: Performed By: #### L IPD2, HEMDF, TSH5, CMP3, HA1C2 #### [facility] [address] [place] [address] CTA Head/Neck w/ + w/o contr yony 04-28-2020 CTA Head/Neck w/ + w/o contrast Patient Name: RAUDEL AHUMADA CT Exam Date/Time 04/28/2020 00:51:25 EDT Exam CTA Head/Neck w/ + w/o contrast Ordering Physician GREGORIO KONG Accession Number [id number] CPT4 Codes Q9967 (CT ISOVUE 370MG/[id number]), 85379 (), 80565 () Reason For Exam also read out [...] Report Dictated on Final Dictating Physician: MD HINOJOAS DIANE Signed Date and Time: 04/28/2020 2:34 am Signed by: MD HINOJOSA DIANE Transcribed Date and Time: 04/28/2020 2:35 Normal [facility] Complete Urinalysison 2019 Bacteria LM.HPF (Urine sed) [#/Area] Moderate (6-50) Abnormal Negative [facility] Comment on above: Result Comment: . Performed By: #### B GLU #### [facility] [address] [place] [address] RBC LM.HPF (Urine sed) [#/Area] Negative Normal 0-2 [facility] Comment on above: Result Comment: . Performed By: #### B GLU #### [facility] [address] [place] [address] Squamous Epithelial 3 - 5 Normal 3-5 [facility] Comment on above: Result Comment: . Performed By: #### B GLU #### [facility] [address] [place] [address] VOLUME, URINE 12 ml Normal [facility] Comment on above: Result Comment: . Performed By: #### B GLU #### [facility] [address] [place] [address] WBC LM.HPF (Urine sed) [#/Area] 6 - 10 Abnormal 0-5 [facility] Comment on above: Result Comment: . Performed By: #### B GLU #### [facility] [address] [place] [address] Appearance (U) Clear Normal Clear [facility] Comment on above: Result Comment: . Performed By: #### B GLU #### [facility] [address] [place] [address] Bilirubin,Urine Negative Normal Negative [facility] Comment on above: Result Comment: . Performed By: #### B GLU #### [facility] [address] [place] [address] Color (U) YELLOW Normal Lt. Yellow [facility] Comment on above: Result Comment: . Performed By: #### B GLU #### [facility] [address] [place] [address] Glucose Ql (U) Normal Normal Normal (<70) [facility] Comment on above: Result Comment: . Performed By: #### B GLU #### [facility] [address] [place] [address] Ketone,Urine Trace Abnormal Negative [facility] Comment on above: Result Comment: . Performed By: #### B GLU #### [place] [address] [place] [address] Leukocytes,Urine 250 Philipp/uL Abnormal Negative [facility] Comment on above: Result Comment: . Performed By: #### B GLU #### [place] [address] [place] [address] Nitrites,Urine Negative Normal Negative [facility] Comment on above: Result Comment: . Performed By: #### B GLU #### [facility] [address] [place] [address] Occult Blood,Urine Negative Normal Negative [facility] Comment on above: Result Comment: . Performed By: #### B GLU #### [facility] [address] [place] [address] pH (U) 5.5 Normal 5.0-8.0 [facility] Comment on above: Result Comment: . Performed By: #### B GLU #### [facility] [address] [place] [address] Protein (U) [Mass/Vol] 70 mg/dL Abnormal Negative [facility] Comment on above: Result Comment: . Performed By: #### B GLU #### [facility] [address] [place] [address] Specific [place],Urine 1.028 Normal 1.005 - 1.030 [facility] Comment on above: Result Comment: . Performed By: #### B GLU #### [facility] [address] [place] [address] Urobilinogen,Urine Normal Normal Normal (0-1) [facility] Comment on above: Result Comment: . Performed By: #### B GLU #### [facility] [address] [place] [address] Echo Complete w/wo Contrasto n 04-28-2020 Echo Complete w/wo Contrast Patient Name: RAUDEL AHUMADA Ultrasound Exam Date/Time 04/28/2020 09:01:04 EDT Exam Echo Complete w/wo Contrast Ordering Physician [id number] -GREGORIO SHEEHAN Accession Number [id number] Reason For Exam syncope Report TRANSTHORACIC ECHOCARDIOGRAM PATIENT: Raudel Ahumada STUDY DATE: 04/28/2020 : 1935 AGE: 84 HT/WT: 157.5 cm (62 124.7 kg in) (274.4 lb) GENDER: F BP: 143 / 63 LOCATION: [facility] PATIENT Inpatient [facility] STATUS: *ORDERING PHYSICIAN: * Gregorio Sheehan *FELLOW: * Monika De La Torre *READING PHYSICIAN: Mine Doty *RADIO TIME BUYER: Mine Madrigal DO, FS, [facility] [address], AE INDICATIONS: SYNCOPE. CONCLUSIONS SUMMARY: 1. [...] RA area, ES, A4C 16 cm^2 10 - 18 Systemic veins Value 02/03/2019 Reference Estimated [...] Electronically signed by Soren Madrigal DO, FS, [facility] 04/28/2020 11:33 Prior Signatures: Final Dictated: 04/28/2020 11:33 am Dictating Physician: DO MADRIGAL JOSEPH Signed Date and Time: 04/28/2020 11:33 am Signed by: DO MADRIGAL JOSEPH Normal [facility] Glucose,Bedsideon 04-28-2020 Glucose [Mass/Vol] 187 mg/dL High 70-100 [facility] Comment on above: Result Comment: Test performed by glucose meter. Results may be 10%-15% lower than serum/plasma values. (CLIA ID [id number]) Performed By: #### L IPD2, HEMDF, TSH5, CMP3, HA1C2 #### [facility] [address] [place] [address] Glucose [Mass/Vol] 147 mg/dL High 70-100 [facility] Comment on above: Result Comment: Test performed by glucose meter. Results may be 10%-15% lower than serum/plasma values. (CLIA ID [id number]) Performed By: #### L IPD2, HEMDF, TSH5, CMP3, HA1C2 #### [facility] [address] [place] [address] Glucose [Mass/Vol] 189 mg/dL High 70-100 [facility] Comment on above: Result Comment: Test performed by glucose meter. Results may be 10%-15% lower than serum/plasma values. (CLIA ID [id number]) Performed By: #### L IPD2, HEMDF, TSH5, CMP3, HA1C2 #### [facility] [address] [place] [address] Glucose [Mass/Vol] 165 mg/dL High 70-100 [facility] Comment on above: Result Comment: Test performed by glucose meter. Results may be 10%-15% lower than serum/plasma values. (CLIA ID [id number]) Performed By: #### L IPD2, HEMDF, TSH5, CMP3, HA1C2 #### [facility] [address] [place] [address] Glucose [Mass/Vol] 184 mg/dL High 70-100 [facility] Comment on above: Result Comment: Test performed by glucose meter. Results may be 10%-15% lower than serum/plasma values. (CLIA ID [id number]) Performed By: #### L IPD2, HEMDF, TSH5, CMP3, HA1C2 #### [facility] [address] [place] [address] Lipid Panelon 04-28-2020 Cholesterol in HDL [Mass/Vol] 38 mg/dL Low 40-60 [facility] Comment on above: Performed By: #### L IPD2, HEMDF, TSH5, CMP3, HA1C2 #### [facility] [address] [place] [address] Cholesterol.total/Choles terol in HDL [Mass ratio] 5 Normal [facility] Comment on above: Result Comment: Ref Range: < 3 Low Risk for CHD 3-6 Mod Risk for CHD > 6 High Risk for CHD Performed By: #### L IPD2, HEMDF, TSH5, CMP3, HA1C2 #### [facility] [address] [place] [address] Protein [Mass/Vol] 136 mg/dL Abnormal <100 [facility] Comment on above: Performed By: #### L IPD2, HEMDF, TSH5, CMP3, HA1C2 #### [facility] [address] [place] [address] Cholesterol [Mass/Vol] 203 mg/dL Abnormal < 200 [facility] Comment on above: Performed By: #### L IPD2, HEMDF, TSH5, CMP3, HA1C2 #### [facility] [address] [place] [address] Triglyceride [Mass/Vol] 143 mg/dL Normal <150 [facility] Comment on above: Performed By: #### L IPD2, HEMDF, TSH5, CMP3, HA1C2 #### [facility] [address] [place] [address] MRI Brain w/o Contraston MRI Brain w/o Contrast Patient Name: RAUDEL AHUMADA MRI Exam Date/Time 04/28/2020 11:31:44 EDT Exam MRI Brain w/o Contrast Ordering Physician GREGORIO KONG Accession Number [id number] CPT4 Codes 65004 () Reason For Exam syncope x2 Report [...] Transcribed Date and Time: 04/28/2020 12:37 Normal [facility] Troponin Ion 04-28-2020 Troponin I.cardiac [Mass/Vol] 0.018 ng/mL Normal 0.000-0.034 [facility] Comment on above: Result Comment: . Performed By: #### L IPD2, HEMDF, TSH5, CMP3, HA1C2 #### [facility] [address] [place] [address] CR Chest Portableon 04-27-20 20 CR Chest Portable Patient Name: RAUDEL AHUMADA Diagnostic Radiology Exam Date/Time 04/27/2020 21:35:51 EDT Exam CR Chest Portable Ordering Physician HERB HILLMAN Accession Number [id number] CPT4 Codes 52916 () Reason For Exam syncvope Report PORTABLE [...] Transcribed Date and Time: 04/27/2020 9:42 Normal [facility] Comp Metabolic Panelon 04-27 ALP [Catalytic activity/Vol] 113 U/L Normal 38-126 [facility] Comment on above: Performed By: #### B GLU #### [facility] [address] [place] [address] ALT [Catalytic activity/Vol] 18 U/L Normal 0-34 [facility] Comment on above: Result Comment: The ALT test is performed by an updated assay method. Please note that the reference intervals have been changed and are now sex specific. Performed By: #### B GLU #### [facility] [address] [place] [address] AST [Catalytic activity/Vol] 28 U/L Normal 15-46 [facility] Comment on above: Performed By: #### B GLU #### [facility] [address] [place] [address] Calcium [Mass/Vol] 10.2 mg/dL Normal 8.4-10.4 [facility] Comment on above: Performed By: #### B GLU #### [facility] [address] [place] [address] Glucose [Mass/Vol] 138 mg/dL High 70-100 [facility] Comment on above: Performed By: #### B GLU #### [facility] [address] [place] [address] Protein [Mass/Vol] 7.3 g/dL Normal 6.3-8.2 [facility] Comment on above: Performed By: #### B GLU #### [facility] [address] [place] [address] Urea nitrogen [Mass/Vol] 25 mg/dL High 7-20 [facility] Comment on above: Performed By: #### B GLU #### [facility] [address] [place] [address] Anion gap [Moles/Vol] 8 Normal [facility] Comment on above: Performed By: #### B GLU #### [facility] [address] [place] [address] Bilirubin [Mass/Vol] 0.8 mg/dL Normal 0.2-1.3 [facility] Comment on above: Performed By: #### B GLU #### [facility] [address] [place] [address] CO2 [Moles/Vol] 26 mmol/L Normal 22-30 [facility] Comment on above: Performed By: #### B GLU #### [facility] [address] [place] [address] Creatinine [Mass/Vol] 0.51 mg/dL Low 0.52-1.25 [facility] Comment on above: Performed By: #### B GLU #### [facility] [address] [place] [address] GFR/1.73 sq M predicted among blacks MDRD (S/P/Bld) [Vol rate/Area] mL/min/{1.73_m2} Normal >60 [facility] Comment on above: Performed By: #### B GLU #### [facility] [address] [place] [address] GFR/1.73 sq M predicted among non-blacks MDRD (S/P/Bld) [Vol rate/Area] 88.0 mL/min/{1.73_m2} Normal >60 [facility] Comment on above: Result Comment: KDIG O [...] secretion. Performed By: #### B GLU #### [facility] [address] [place] [address] Albumin [Mass/Vol] 4.2 g/dL Normal 3.5-5.0 [facility] Comment on above: Performed By: #### B GLU #### [facility] [address] [place] [address] Potassium [Moles/Vol] 3.9 mmol/L Normal 3.5-5.1 [facility] Comment on above: Performed By: #### B GLU #### [facility] [address] [place] [address] Chloride [Moles/Vol] 106 mmol/L Normal 98-107 [facility] Comment on above: Performed By: #### B GLU #### [facility] [address] [place] [address] Sodium [Moles/Vol] 140 mmol/L Normal 135-145 [facility] Comment on above: Performed By: #### B GLU #### [facility] [address] [place] [address] ED Provider Noteon 0 ED Provider Note [...] and her daughter corroborates this fact. Raudel Ahumaad is a 84 y.o. female who presents [...] MOUTH EVERY DAY, Disp-90 tablet,R-1Normal !! Handicap [facility] Starting Sat04/09/2019, Disp-1 each, R-0, PrintDX arthritis 5 years !! Handicap [facility] Starting Sat04/08/2019, Disp-1 each, R-0, PrintDX arthritis 5 years B Puioutu-Fviqof-UQ (VITAMIN B50 COMPLEX PO) Take by mouthHistorical Med VITAMIN E PO Take by mouth Indications: 2000units dailyHistorical Med Multiple Vitamins-Minerals (MULTIVITAMIN ADULT PO) Take by mouthHistorical Med !! Handicap [facility] Starting Sat12/31/2018, Disp-1 each, R-0, PrintDX Arthritis 5 years Lancets [facility] Disp-100 each, R-3, PrintDx E11.9 TEST ONCE DAILY PATIENT USES PRODIGY Glucose Blood (BLOOD GLUCOSE TEST STRIPS) STRP [...] on phone: None Gets together: None Attends faith service: None Active member of club or [...] Response: Oriented Best Motor Response: Obeys commands [place] Coma Scale Score: 15 PHYSICAL EXAM (5+ [...] within normal limits Narrative: [facility], [address] , [place] [address] CBC WITH AUTO DIFFERENTIAL - Abnormal; Notable for the following components: Absolute Neut # 7.1 (*) All other components within normal limits Narrative: Test Performed by [employer], [address] , [place] [address] URINALYSIS - Abnormal; Notable for the following components: Total Protein, Urine 70 (*) Ketones, Urine Trace (*) LEUKOCYTES, UA 250 (*) WBC, UA 6-10 (*) Bacteria, UA Moderate (6-50) (*) All other components within normal limits Narrative: [facility], [address] , [place] [address] LIPID PANEL - Abnormal; Notable for the following components: Cholesterol 203 (*) HDL 38 (*) LDL Cholesterol 136 (*) All other components within normal limits Narrative: Test Performed by [facility], [address] [place] [address] BASIC METABOLIC PANEL - Abnormal; Notable for the following components: Chloride 108 (*) Glucose 134 (*) CREATININE 0.48 (*) All other components within normal limits Narrative: Test Performed by [facility] [employer], [address] [place] [address] POCT GLUCOSE - Abnormal; Notable for the following components: POC Glucose 184 (*) All other components within normal limits Narrative: Test Performed by [facility], [address] [place] [address] POCT GLUCOSE - Abnormal; Notable for the following components: POC Glucose 165 (*) All other components within normal limits Narrative: Test Performed by [facility] [employer], [address] [place] [address] POCT GLUCOSE - Abnormal; Notable for the following components: POC Glucose 189 (*) All other components within normal limits Narrative: Test Performed by [facility], [address] [place] [address] POCT GLUCOSE - Abnormal; Notable for the following components: POC Glucose 147 (*) All other components within normal limits Narrative: Test Performed by [facility] [employer], [address] [place] [address] POCT GLUCOSE - Abnormal; Notable for the following components: POC Glucose 187 (*) All other components within normal limits Narrative: Test Performed by [facility], [address] [place] [address] POCT GLUCOSE - Abnormal; Notable for the following components: POC Glucose 154 (*) All other components within normal limits Narrative: Test Performed by [facility], [address] [place] [address] POCT GLUCOSE - Abnormal; Notable for the following components: POC Glucose 136 (*) All other components within normal limits Narrative: Test Performed by [facility], [address] [place] [address] POCT GLUCOSE - Abnormal; Notable for the following components: POC Glucose 133 (*) All other components within normal limits Narrative: Test Performed by [facility], [address] [place] [address] POCT GLUCOSE - Abnormal; Notable for the following components: POC Glucose 250 (*) All other components within normal limits Narrative: Test Performed by [facility], [address], [place], [place] [address] POCT GLUCOSE - Abnormal; Notable for the following components: POC Glucose 137 (*) All other components within normal limits Narrative: Test Performed by [facility], [address] [address], [place], [place] [address] POCT GLUCOSE - Abnormal; Notable for the following components: POC Glucose 131 (*) All other components within normal limits Narrative: Test Performed by [facility], [address], [place], [place] [address] BRAIN NATRIURETIC PEPTIDE Narrative: Test Performed by [facility], [address] , [place], [place] [address] LIPASE Narrative: Test Performed by [facility], [address] , [place] [address] MAGNESIUM Narrative: Test Performed by [facility], [address] , [place], [place] [address] TROPONIN Narrative: Test Performed by [facility], [address] , [place], [place] [address] CK Narrative: Test Performed by [facility], [address], [place], [place] [address] TROPONIN Narrative: Test Performed by [facility], [address], [place], [place] [address] CBC Narrative: Test Performed by [facility], [address], [place], [place] [address] COVID-19 Narrative: Test Performed by [facility], [address] [place] [id number] Specimen Source Comment:Nasopharynge al Swab POCT GLUCOSE [...] No treatment, delayed treatment, observation and referral [place] protocol: Procedure explained and questions answered to [...] method: Pressure wash Skin repair: Repair method: [place] Number of leonid: 8 Approximation: Approximation: Close Post-procedure details: Dressing: Open (no dressing) Patient tolerance of procedure: Tolerated well, no immediate complications FINAL IMPRESSION 1. Syncope and collapse 2. Injury of head, initial encounter 3. Laceration of scalp, initial encounter DISPOSITION/PLAN DISPOSITION Admitted 04/27/2020 10:01:51 PM PATIENT REFERRED TO: Maida Doshi MD [address] [place] [address] DISCHARGE MEDICATIONS: Discharge Medication List as of [...] 05/30/20 1742 Herb Moreno MD 06/01/202037 Normal [facility] Hemogram w/ Autodiffon 04-27 Abs Baso Cnt 0.1 10*3/uL Normal 0.0-0.2 [facility] Comment on above: Performed By: #### B GLU #### [facility] [address] [place] [address] Abs Neutrophile Cnt 7.1 10*3/uL High 1.8-7.0 [facility] Comment on above: Performed By: #### B GLU #### [facility] [address] [facility] [place] [address] Basophils/100 WBC (Bld) 1.2 % Normal 0.0-2.0 [facility] Comment on above: Performed By: #### B GLU #### [facility] [address] [place] [address] Eosinophils (Bld) [#/Vol] 0.2 10*3/uL Normal 0.0-0.5 [facility] Comment on above: Performed By: #### B GLU #### [facility] [address] [place] [address] Eosinophils/100 WBC (Bld) 2.4 % Normal 1.0-6.0 [facility] Comment on above: Performed By: #### B GLU #### [facility] [address] [place] [address] Erythrocyte distribution width (RBC) [Ratio] 13.2 % Normal 11.5-14.5 [facility] Comment on above: Performed By: #### B GLU #### [facility] [address] [place] [address] Granulocytes/100 WBC (Bld) 69.0 % Normal 40.0-80.0 [facility] Comment on above: Performed By: #### B GLU #### [facility] [address] [place] [address] Hematocrit (Bld) [Volume fraction] 45.6 % Normal 35.0-47.0 [facility] Comment on above: Performed By: #### B GLU #### [facility] [address] [place] [address] Hemoglobin (Bld) [Mass/Vol] 15.7 g/dL Normal 11.7-16.0 [facility] Comment on above: Performed By: #### B GLU #### [facility] [address] [place] [address] Lymphocytes (Bld) [#/Vol] 2.3 10*3/uL Normal 1.0-4.3 [facility] Comment on above: Performed By: #### B GLU #### [facility] [address] [place] [address] Lymphocytes/100 WBC (Bld) 21.8 % Normal 20.0-40.0 [facility] Comment on above: Performed By: #### B GLU #### [facility] [address] [place] [address] MCH (RBC) [Entitic mass] 31.5 pg Normal 26.0-34.0 [facility] Comment on above: Performed By: #### B GLU #### [facility] [address] [place] [address] MCHC (RBC) [Mass/Vol] 34.4 % Normal 32.0-36.0 [facility] Comment on above: Performed By: #### B GLU #### [facility] [address] [place] [address] MCV (RBC) [Entitic vol] 91.6 fL Normal 79.0-98.0 [facility] Comment on above: Performed By: #### B GLU #### [facility] [address] [place] [address] Monocytes (Bld) [#/Vol] 0.6 10*3/uL Normal 0.0-0.8 [facility] Comment on above: Performed By: #### B GLU #### [place] [address] [place] [address] Monocytes/100 WBC (Bld) 5.6 % Normal 2.0-10.0 [facility] Comment on above: Performed By: #### B GLU #### [facility] [address] [place] [address] Platelet mean volume (Bld) [Entitic vol] 7.5 fL Normal 7.4-10.4 [facility] Comment on above: Performed By: #### B GLU #### [facility] [address] [place] [address] Platelets (Bld) [#/Vol] 286 10*3/uL Normal 140-440 [facility] Comment on above: Performed By: #### B GLU #### [facility] [address] [place] [address] RBC (Bld) [#/Vol] 4.98 10*6/uL Normal 3.80-5.20 [facility] Comment on above: Performed By: #### B GLU #### [facility] [address] [place] [address] WBC (Bld) [#/Vol] 10.4 10*3/uL Normal 3.6-10.7 [facility] Comment on above: Performed By: #### B GLU #### [facility] [address] [place] [address] Lipaseon 04-27-2020 Lipase [Catalytic activity/Vol] 75 U/L Normal 23-300 [facility] Comment on above: Performed By: #### B GLU #### [facility] [address] [place] [address] Magnesiumon 04-27-2020 Magnesium [Mass/Vol] 1.6 mg/dL Normal 1.6-2.3 [facility] Comment on above: Performed By: #### B GLU #### [facility] [address] [place] [address] NT pro BNPon 04-27-2020 Natriuretic peptide B (Bld) [Mass/Vol] 212 pg/mL Normal 0-450 [facility] Comment on above: Performed By: #### B GLU #### [facility] [address] [place] [address] Troponin Ion 04-27-2020 Troponin I.cardiac [Mass/Vol] ng/mL Normal 0.000-0.034 [facility] Comment on above: Result Comment: . Performed By: #### B GLU #### [facility] [address] [place] [address] CBC Auto Differentialon 01-10 Absolute Baso # 0.1 10*3/uL 0 - 0.2 10*3/uL [place] Absolute Neut # 5.1 10*3/uL 1.8 - 7 10*3/uL [place] Basophils/100 WBC (Bld) 1.2 % 0 - 2 % M [place] Eosinophils (Bld) [#/Vol] 0.3 10*3/uL 0 - 0.5 10*3/uL [place] Eosinophils/100 WBC (Bld) 3.7 % 1 - 6 % [place] Erythrocyte distribution width (RBC) [Ratio] 12.9 % 11.5 - 14.5 % [place] Granulocytes/100 WBC (Bld) 54.5 % 40 - 80 % [place] Hematocrit (Bld) [Volume fraction] 42.9 % 35 - 47 % [place] Hemoglobin (Bld) [Mass/Vol] 14.6 g/dL 11.7 - 16 g/dL [place] Lymphocytes (Bld) [#/Vol] 3.2 10*3/uL 1 - 4.3 10*3/uL [place] Lymphocytes/100 WBC (Bld) 33.8 % 20 - 40 % [place] MCH (RBC) [Entitic mass] 31.9 pg 26 - 34 pg [place] MCHC (RBC) [Mass/Vol] 34.2 % 32 - 36 % [place] MCV (RBC) [Entitic vol] 93.3 fL 79 - 98 fL [place] Monocytes (Bld) [#/Vol] 0.6 10*3/uL 0 - 0.8 10*3/uL [place] Monocytes/100 WBC (Bld) 6.8 % 2 - 10 % [place] Platelet mean volume (Bld) [Entitic vol] 7.7 fL 7.4 - 10.4 fL [place] Platelets (Bld) [#/Vol] 318 10*3/uL 140 - 440 10*3/uL [place] RBC (Bld) [#/Vol] 4.59 10*6/uL 3.8 - 5.2 10*6/uL [place] WBC (Bld) [#/Vol] 9.4 10*3/uL 3.6 - 10.7 10*3/uL [place] Test Performed by [facility], [address] , [place], [place] [id number] [place] [address] Comp Metabolic Panelon 01-19 ALP [Catalytic activity/Vol] 97 U/L Normal 38-126 [facility] Comment on above: Performed By: #### L IPD2, HEMDF, CMP3, HA1C2, TSH5 #### [facility] [address] [place] [address] ALT [Catalytic activity/Vol] 20 U/L Normal 0-34 [facility] Comment on above: Result Comment: The ALT test is performed by an updated assay method. Please note that the reference intervals have been changed and are now sex specific. Performed By: #### L IPD2, HEMDF, CMP3, HA1C2, TSH5 #### [facility] [address] [place] [address] Calcium [Mass/Vol] 9.9 mg/dL Normal 8.4-10.4 [facility] Comment on above: Performed By: #### L IPD2, HEMDF, CMP3, HA1C2, TSH5 #### [facility] [address] [place] [address] Glucose [Mass/Vol] 121 mg/dL High 70-100 [facility] Comment on above: Performed By: #### L IPD2, HEMDF, CMP3, HA1C2, TSH5 #### [facility] [address] [place] [address] Anion gap [Moles/Vol] 10 Normal [facility] Comment on above: Performed By: #### L IPD2, HEMDF, CMP3, HA1C2, TSH5 #### [facility] [address] [place] [address] AST [Catalytic activity/Vol] 24 U/L Normal 15-46 [facility] Comment on above: Performed By: #### L IPD2, HEMDF, CMP3, HA1C2, TSH5 #### [facility] [address] [place] [address] Bilirubin [Mass/Vol] 1.1 mg/dL Normal 0.2-1.3 [facility] Comment on above: Performed By: #### L IPD2, HEMDF, CMP3, HA1C2, TSH5 #### [facility] [address] [place] [address] CO2 [Moles/Vol] 26 mmol/L Normal 22-30 [facility] Comment on above: Performed By: #### L IPD2, HEMDF, CMP3, HA1C2, TSH5 #### [facility] [address] [place] [address] Creatinine [Mass/Vol] 0.69 mg/dL Normal 0.52-1.25 [facility] Comment on above: Performed By: #### L IPD2, HEMDF, CMP3, HA1C2, TSH5 #### [facility] [address] [place] [address] GFR/1.73 sq M predicted among blacks MDRD (S/P/Bld) [Vol rate/Area] mL/min/{1.73_m2} Normal >60 [facility] Comment on above: Performed By: #### L IPD2, HEMDF, CMP3, HA1C2, TSH5 #### [facility] [address] [place] [address] GFR/1.73 sq M predicted among non-blacks MDRD (S/P/Bld) [Vol rate/Area] 79.8 mL/min/{1.73_m2} Normal >60 [facility] Comment on above: Result Comment: KDIG O [...] L IPD2, HEMDF, CMP3, HA1C2, TSH5 #### [facility] [address] [place] [address] Protein [Mass/Vol] 7.1 g/dL Normal 6.3-8.2 [facility] Comment on above: Performed By: #### L IPD2, HEMDF, CMP3, HA1C2, TSH5 #### [facility] [address] [place] [address] Urea nitrogen [Mass/Vol] 20 mg/dL Normal 7-20 [facility] Comment on above: Performed By: #### L IPD2, HEMDF, CMP3, HA1C2, TSH5 #### [facility] [address] [place] [address] Chloride [Moles/Vol] 104 mmol/L Normal 98-107 [facility] Comment on above: Performed By: #### L IPD2, HEMDF, CMP3, HA1C2, TSH5 #### [facility] [address] [place] [address] Potassium [Moles/Vol] 4.2 mmol/L Normal 3.5-5.1 [facility] Comment on above: Performed By: #### L IPD2, HEMDF, CMP3, HA1C2, TSH5 #### [facility] [address] [place] [address] Sodium [Moles/Vol] 140 mmol/L Normal 135-145 [facility] Comment on above: Performed By: #### L IPD2, HEMDF, CMP3, HA1C2, TSH5 #### [facility] [address] [place] [address] Albumin [Mass/Vol] 4.1 g/dL Normal 3.5-5.0 [facility] Comment on above: Performed By: #### L IPD2, HEMDF, CMP3, HA1C2, TSH5 #### [facility] [address] [place] [address] Comprehensive Metabolic Pane denny 01-20-2020 Albumin [Mass/Vol] 4.1 g/dL 3.5 - 5 g/dL [place] ALP [Catalytic activity/Vol] 97 U/L 38 - 126 U/L [place] ALT [Catalytic activity/Vol] 20 U/L 0 - 34 U/L [place] Comment on above: The ALT test is perf ormed by an updated assay method. Please note that the reference intervals have been changed and are now sex specific. Anion gap [Moles/Vol] 10 mmol/L [place] AST [Catalytic activity/Vol] 24 U/L 15 - 46 U/L [place] Bilirubin Ql (U) 1.1 mg/dL 0.2 - 1.3 mg/dL [place] Calcium [Mass/Vol] 9.9 mg/dL 8.4 - 10. 4 mg/dL [place] Chloride [Moles/Vol] 104 mmol/L 98 - 10 7 mmol/L [place] CO2 [Moles/Vol] 26 mmol/L 22 - 30 mmol/L [place] Creatinine [Mass/Vol] 0.69 mg/dL 0.52 - 1.25 mg/dL [place] EGFR IF NonAfrican Iranian 79.8 mL/min >60 [place] Comment on above: KDIGO guidelines pro [...] MDRD (S/P/Bld) [Vol rate/Area] mL/min/{1.73_m2} >60 mL/min [place] Glucose [Mass/Vol] 121 mg/dL High 70 - 100 mg/dL [place] Potassium [Moles/Vol] 4.2 mmol/L 3.5 - 5.1 mmol/L [place] Protein [Mass/Vol] 7.1 g/dL 6.3 - 8.2 g/dL [place] Sodium [Moles/Vol] 140 mmol/L 135 - 145 mmol/L [place] Urea nitrogen [Mass/Vol] 20 mg/dL 7 - 20 mg/d L [place] Hemoglobin A1Con 01-20-2020 HbA1c (Bld) [Mass fraction] 7.6 % High 4.0-5.7 [facility] Comment on above: Result Comment: --Hg bA1C levels may not be accurate in patients who have renal disease, received recent blood transfusions, are anemic, or who have dyshemoglobinemia. Performed By: #### L IPD2, HEMDF, CMP3, HA1C2, TSH5 #### [facility] [address] [place] [address] HbA1c (Bld) [Mass fraction] 171 mg/dL Normal [facility] Comment on above: Performed By: #### L IPD2, HEMDF, CMP3, HA1C2, TSH5 #### [facility] [address] [place] [address] eAG 171 mg/dL [place] HbA1c (Bld) [Mass fraction] 7.6 % High 4 - 5.7 % [place] Comment on above: --HgbA1C levels may not be accurate in patients who have renal disease, received recent blood transfusions, are anemic, or who have dyshemoglobinemia. Interpretation and review of laboratory results Abnormal [place] Test Performed by [facility], [address] , [place], [place] [id number] [place] [address] Hemogram w/ Autodiffon 01-19 Abs Baso Cnt 0.1 10*3/uL Normal 0.0-0.2 [facility] Comment on above: Performed By: #### L IPD2, HEMDF, CMP3, HA1C2, TSH5 #### [facility] [address] [place] [address] Abs Neutrophile Cnt 5.1 10*3/uL Normal 1.8-7.0 [facility] Comment on above: Performed By: #### L IPD2, HEMDF, CMP3, HA1C2, TSH5 #### [facility] [address] [place] [address] Basophils/100 WBC (Bld) 1.2 % Normal 0.0-2.0 [facility] Comment on above: Performed By: #### L IPD2, HEMDF, CMP3, HA1C2, TSH5 #### [facility] [address] [place] [address] Eosinophils (Bld) [#/Vol] 0.3 10*3/uL Normal 0.0-0.5 [facility] Comment on above: Performed By: #### L IPD2, HEMDF, CMP3, HA1C2, TSH5 #### [facility] [address] [place] [address] Eosinophils/100 WBC (Bld) 3.7 % Normal 1.0-6.0 [facility] Comment on above: Performed By: #### L IPD2, HEMDF, CMP3, HA1C2, TSH5 #### [facility] [address] [place] [address] Erythrocyte distribution width (RBC) [Ratio] 12.9 % Normal 11.5-14.5 [facility] Comment on above: Performed By: #### L IPD2, HEMDF, CMP3, HA1C2, TSH5 #### [facility] [address] [place] [address] Granulocytes/100 WBC (Bld) 54.5 % Normal 40.0-80.0 [facility] Comment on above: Performed By: #### L IPD2, HEMDF, CMP3, HA1C2, TSH5 #### [facility] [address] [place] [address] Hematocrit (Bld) [Volume fraction] 42.9 % Normal 35.0-47.0 [facility] Comment on above: Performed By: #### L IPD2, HEMDF, CMP3, HA1C2, TSH5 #### [facility] [address] [place] [address] Hemoglobin (Bld) [Mass/Vol] 14.6 g/dL Normal 11.7-16.0 [facility] Comment on above: Performed By: #### L IPD2, HEMDF, CMP3, HA1C2, TSH5 #### [facility] [address] [place] [address] Lymphocytes (Bld) [#/Vol] 3.2 10*3/uL Normal 1.0-4.3 [facility] Comment on above: Performed By: #### L IPD2, HEMDF, CMP3, HA1C2, TSH5 #### [facility] [address] [place] [address] Lymphocytes/100 WBC (Bld) 33.8 % Normal 20.0-40.0 [facility] Comment on above: Performed By: #### L IPD2, HEMDF, CMP3, HA1C2, TSH5 #### [facility] [address] [place] [address] MCH (RBC) [Entitic mass] 31.9 pg Normal 26.0-34.0 [facility] Comment on above: Performed By: #### L IPD2, HEMDF, CMP3, HA1C2, TSH5 #### [facility] [address] [place] [address] MCHC (RBC) [Mass/Vol] 34.2 % Normal 32.0-36.0 [facility] Comment on above: Performed By: #### L IPD2, HEMDF, CMP3, HA1C2, TSH5 #### [facility] [address] [place] [address] MCV (RBC) [Entitic vol] 93.3 fL Normal 79.0-98.0 [facility] Comment on above: Performed By: #### L IPD2, HEMDF, CMP3, HA1C2, TSH5 #### [facility] [address] [place] [address] Monocytes (Bld) [#/Vol] 0.6 10*3/uL Normal 0.0-0.8 [facility] Comment on above: Performed By: #### L IPD2, HEMDF, CMP3, HA1C2, TSH5 #### [facility] [address] [place] [address] Monocytes/100 WBC (Bld) 6.8 % Normal 2.0-10.0 [facility] Comment on above: Performed By: #### L IPD2, HEMDF, CMP3, HA1C2, TSH5 #### [facility] [address] [place] [address] Platelet mean volume (Bld) [Entitic vol] 7.7 fL Normal 7.4-10.4 [facility] Comment on above: Performed By: #### L IPD2, HEMDF, CMP3, HA1C2, TSH5 #### [facility] [address] [place] [address] Platelets (Bld) [#/Vol] 318 10*3/uL Normal 140-440 [facility] Comment on above: Performed By: #### L IPD2, HEMDF, CMP3, HA1C2, TSH5 #### [facility] [address] [place] [address] RBC (Bld) [#/Vol] 4.59 10*6/uL Normal 3.80-5.20 [facility] Comment on above: Performed By: #### L IPD2, HEMDF, CMP3, HA1C2, TSH5 #### [facility] [address] [place] [address] WBC (Bld) [#/Vol] 9.4 10*3/uL Normal 3.6-10.7 [facility] Comment on above: Performed By: #### L IPD2, HEMDF, CMP3, HA1C2, TSH5 #### [facility] [address] [place] [address] Lipid Panelon 01-20-2020 Cholesterol in HDL [Mass/Vol] 47 mg/dL Normal 40-60 [facility] Comment on above: Performed By: #### B GLU #### [facility] [address] [place] [address] Cholesterol.total/Choles terol in HDL [Mass ratio] 5 Normal [facility] Comment on above: Result Comment: Ref Range: < 3 Low Risk for CHD 3-6 Mod Risk for CHD > 6 High Risk for CHD Performed By: #### B GLU #### [facility] [address] [place] [address] Protein [Mass/Vol] 156 mg/dL Abnormal <100 [facility] Comment on above: Performed By: #### B GLU #### [facility] [address] [place] [address] Triglyceride [Mass/Vol] 195 mg/dL Abnormal <150 [facility] Comment on above: Performed By: #### B GLU #### [facility] [address] [place] [address] Cholesterol [Mass/Vol] 242 mg/dL Abnormal < 200 [facility] Comment on above: Performed By: #### B GLU #### [facility] [address] [place] [address] Cholesterol [Mass/Vol] 242 mg/dL Abnormal <200 [place] Cholesterol in HDL [Mass/Vol] 47 mg/dL 40 - 60 mg/dL [place] Cholesterol in LDL [Mass/Vol] 156 mg/dL Abnormal <100 [place] Cholesterol.total/Choles terol in HDL [Mass ratio] 5 {ratio} [place] Comment on above: Ref Range: < 3 Low Risk for CHD 3-6 Mod Risk for CHD > 6 High Risk for CHD Triglyceride [Mass/Vol] 195 mg/dL Abnormal <150 [place] Microalbumin / Creatinine Ur ine Ratioon 01-20-2020 Albumin/Creatinine DL <= 20 mg/L (24H U) [Mass ratio] 18.6 mg/L High 0 - 17 mg/L [place] Comment on above: Microalbumin concent rations <30 are considered normal, 30-300 are considered microalbuminuria (or risk of diabetic nephropathy), and >300 are considered clinical albuminuria (clinical nephropathy). Diabetes Care,27, Supplement 1, Z00-50, 2004 Albumin/Creatinine DL <= 20 mg/L (U) [Ratio] 9.2 mg/g 0 - 29.9 mg/g [place] Creatinine (U) [Mass/Vol] 201.3 mg/dL No [place] Interpretation and review of laboratory results Abnormal [place] Test Performed by [facility], [address] , [place], [place] [address] [place] Microalbumin/Creat Ratioon 0 01-20-2020 Microalb/Creat Ratio 9.2 mg/g Normal 0.0-29.9 [facility] Comment on above: Performed By: #### B GLU #### [facility] [address] [place] [address] Microalbumin, Ur 18.6 mg/L High 0.0-17.0 [facility] Comment on above: Result Comment: Micr oalbumin concentrations <30 are considered normal, 30-300 are considered microalbuminuria (or risk of diabetic nephropathy), and >300 are considered clinical albuminuria (clinical nephropathy). Diabetes Care,27, Supplement 1, O59-11, 2003 Performed By: #### B GLU #### [facility] [address] [place] [address] Creatinine, Ur Random 201.3 mg/dL Normal No Range [facility] Comment on above: Performed By: #### B GLU #### [facility] [address] [place] [address] Otheron 01-20-2020 Interpretation and review of laboratory results Abnormal [place] Test Performed by [facility], [address] TSH without Reflexon 020 TSH Qn 1.553 u[IU]/mL 0.465 - 4.68 u[IU]/mL [place] Test Performed by [facility], [address] Thyroid Stim. Hormoneon 01-10 Thyroid Stim. Hormone 1.553 u[IU]/mL Normal 0.465-4.68 0 [facility] Comment on above: Performed By: #### B GLU #### [facility] [address] [place] [address] CT Cervical Spine WO Contras ton 06-05-2019 Patient Name: RAUDEL AHUMADA ---CT--- Exam Date/Time 06/05/2019 20:16:[address] Spine Cervical w/o Contrast Ordering Physician MD ANGEL BETSY Accession Number [id number] CPT4 Codes 07665 () Reason For Exam neck pain Report [...] I Transcribed Date and Time: 06/05/2019 8:22 [place], [place], [facility] Incoming Radiology Results From [facility], [facility]1983 - 06/05/2019 8:22 PM EDT Patient Name: RAUDEL AHUMADA ---CT--- Exam Date/Time 06/05/2019 20:16:[address] Spine Cervical w/o Contrast Ordering Physician MD ANGEL BETSY Accession Number [id number] CPT4 Codes 88752 () Reason For Exam neck pain Report [...] I Transcribed Date and Time: 06/05/2019 8:22 [place] CT Head WO Contraston 2018 Patient Name: RAUDEL AHUMADA ---CT--- Exam Date/Time 06/05/2019 20:16:[address] Head or Brain w/o Contrast Ordering Physician MD ANGEL BETSY Accession Number [id number] CPT4 Codes 25603 () Reason For Exam fall, hematoma to [...] I Transcribed Date and Time: 06/05/2019 8:16 [place], [facility] Incoming Radiology Results From [facility] - 06/05/2019 8:16 PM EDT Patient Name: RAUDEL AHUMADA ---CT--- Exam Date/Time 06/05/2019 20:16:[address] Head or Brain w/o Contrast Ordering Physician MD ANGEL BETSY Accession Number [id number] CPT4 Codes 30835 () Reason For Exam fall, hematoma to [...] I Transcribed Date and Time: 06/05/2019 8:16 [facility], [place] Vital Signs Date Time Vital Sign Value Performing Clinician Obdulia barnes 05-06-2020 10:36-0400 BP Diastolic 81 mm[Hg] [place], [place] 05-06-2020 10:36-0400 BP Systolic 172 mm[Hg] [place], [place] 05-06-2020 10:33-0400 Body Temperature 97.2 [degF] Johnny [facility], [place] 05-06-2020 10:31-0400 BMI (Body Mass Index) 45.71 kg/m2 Johnny Stone [facility], [place] 05-06-2020 10:31-0400 Body weight 113.4 kg Johnny Stone [place], [place] 05-06-2020 10:31-0400 Pulse (Heart Rate) 65 /min [facility] [place] [place] 05-06-2020 10:31-0400 Pulse Oximetry 93 % Johnny Michaud [place], [place] 05-06-2020 10:31-0400 Respiratory Rate 18 /min Johnny Stone [place], [place] 06-05-2019 20:55-0400 BP Diastolic 59 mm[Hg] [place], [place] 06-05-2019 20:55-0400 BP Systolic 146 mm[Hg] [place] 06-05-2019 20:55-0400 Pulse (Heart Rate) 62 /min [place] 06-05-2019 20:55-0400 Pulse Oximetry 96 % [place] 06-05-2019 20:55-0400 Respiratory Rate 16 /min [place] 06-05-2019 19:47-0400 BMI (Body Mass Index) 45.73 kg/m2 Carla [place] 06-05-2019 19:47-0400 Body Temperature 98.6 [degF] [place], [place] 06-05-2019 19:47-0400 Body weight 113.4 kg [place] 06-05-2019 19:47-0400 Height 157.5 cm [place] Encounters Encounter Date Encounter Type Care Provider Facility Start: 03-15-2025 ambulatory Adelfo HERNANDEZ [facility] ity:[facility] Start: 01-11-2025 End: 01-11-2025 ambulatory Adelfo HERNANDEZ [facility] Work Phone: Start: 01-11-2025 End: 01-11-2025 Departed Referred Adelfo Dhaliwal -[facility] [address] Start: 01-11-2025 End: 01-11-2025 ambulatory Adelfo HERNANDEZ Facility:[facility] Start: 12-23-2024 End: 05-14-2025 Emergency department patient visit MAIDA STOKESSKI Facility:[facility] Start: 07-13-2024 End: 07-13-2024 ambulatory Adelfo Sheaer DAVID Facility:[facility] Start: 05-04-2024 End: 05-04-2024 ambulatory Adelfo Sheaopal HERNANDEZ Facility:[facility] Start: 11-11-2023 End: 11-11-2023 ambulatory [facility] Work Phone: Start: 11-11-2023 End: 11-11-2023 Departed Referred [facility] [address] Start: 11-03-2023 Registered Referred [facility] [address] Start: 10-21-2023 End: 10-21-2023 ambulatory [facility] Work Phone: Start: 10-21-2023 End: 10-21-2023 Departed Referred [facility] [place] [facility] [address] Start: 07-15-2023 [facility] Start: 07-12-2023 End: 07-12-2023 ambulatory [facility] Work Phone: Start: 07-12-2023 End: 07-12-2023 Departed Referred [facility] [address] Start: 06-10-2023 End: 06-10-2023 ambulatory [facility] Work Phone: Start: 06-10-2023 End: 06-10-2023 Departed Referred [facility] - [address] Start: 02-25-2023 End: 02-26-2023 ambulatory PATRICIA HARRIS [facility] Start: 02-25-2023 End: 02-25-2023 Office outpatient new 30 minutes Patricia Harris MD Work Phone: [facility] Comment on above: Lumbar pain (Primary Dx); Lumbar radiculitis; DDD (degenerative disc disease), lumbar Start: 02-25-2023 End: 02-25-2023 Subsequent hospital visit by physician Patricia Harris MD Work Phone: [facility] Comment on above: Lumbar pain Start: 02-14-2023 End: 02-14-2023 ambulatory [facility] Work Phone: Start: 02-14-2023 End: 02-14-2023 Departed Referred [facility] - [address] Start: 01-16-2023 End: 01-16-2023 Departed Referred [facility] - [address] Start: 01-09-2023 End: 01-09-2023 ambulatory [facility] Work Phone: Start: 01-09-2023 End: 01-09-2023 Departed Referred [facility] Start: 12-10-2022 Telephone encounter López marcos DDS Work Phone: [facility] Start: 10-30-2022 End: 10-30-2022 ambulatory [facility] Work Phone: Start: 10-30-2022 End: 10-30-2022 Departed Referred [facility] - [address] Start: 10-01-2022 End: 10-01-2022 ambulatory [facility] Work Phone: Start: 10-01-2022 End: 10-01-2022 Departed Referred [facility] - [address] Start: 06-19-2022 ambulatory LÓPEZ AYALA Facili ty:[facility] Start: 06-19-2022 End: 06-19-2022 Patient encounter procedure López Ayala DDS Work Phone: [facility] Comment on above: 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 Start: 05-12-2020 End: 05-12-2020 Subsequent hospital visit by physician Maida Doshi Work Phone: [facility] Comment on above: Abnormal finding of blood chemistry, unspecified ; Other hyperlipidemia; HTN (hypertension), benign; Thyroid nodule Start: 05-06-2020 End: 05-06-2020 Emergency department patient visit Johnny Stone Work Phone: [facility] ED Comment on above: Encounter for staple removal (Primary Dx) Start: 01-20-2020 End: 01-20-2020 Subsequent hospital visit by physician Maida Doshi Work Phone: [facility] Comment on above: HTN (hypertension), benign; Diabetes mellitus without complication (HCC) Start: 06-05-2019 End: 06-05-2019 Emergency department patient visit Carla Angel Work Phone: [facility] ED Comment on above: Scalp hematoma, init ial [...] Assay of thyroid stimulating hormone tsh Maida Cai Work Phone: Start: 05-12-2020 Blood count complete auto&auto difrntl wbc Maida Doshi Work Phone: Start: 05-12-2020 Comprehensive metabo lic panel Maida Doshi Work Phone: Start: 05-12-2020 Hemoglobin glycosylated a1c Maida Doshi Work Phone: Start: 05-12-2020 Lipid panel Maida Katz nevye Work Phone: Start: 01-20-2020 Urine albumin quantitative [...] Ct cervical spine w/ o contrast material [facility] Work Phone: Start: 06-05-2019 Ct head/brain w/o co ntrast material [facility] Work Phone: Plan of Treatment Date Care Activity Detail Author Start: 04-12-2023 Influenza vaccination Influenza Vaccine (#1) [facility] Start: 12-21-2022 Lipid panel Lipid Profile [facility] Start: 06-23-2022 Hemoglobin A1c measurement Hemoglobin A1C [facility] Start: 05-12-2022 Influenza vaccination Influenza Vaccine (#1) [facility] Start: 01-10-2022 Welcome to Medicare Visit (G0402) Welcome to Medicare Visit (G0402) [facility] Start: 10-28-2021 Thyroid stimulating hormone measurement TSH Level [facility] Start: 05-12-2021 Creatinine measurement Creatinine monitoring [facility] [place] Start: 05-12-2021 Potassium monitoring Potassium monitoring [place] Start: 05-12-2021 TSH Qn TSH testing [place] Start: 04-29-2021 Creatinine measurement Creatinine monitoring [place] Start: 04-29-2021 Potassium monitoring Potassium [place] Start: 01-19-2021 TSH Qn [place]SH testing [place] Start: 11-02-2020 COVID-19 Vaccine (3 - Booster for Pfizer series) COVID-19 Vaccine (3 - Booster for Pfizer series) [facility] Start: 09-28-2020 COVID-19 Vaccine (2 - Pfizer series) COVID-19 Vaccine (2 - Pfizer series) [facility] Start: 05-12-2020 End: 05-12-2020 Office Visit 05/12/2020 Office Visit Family Medicine Maida Doshi MD [address] [place] [id number] [facility] Start: 04-12-2020 Influenza vaccination [place] Start: 01-01-2020 Creatinine measurement Creatinine monitoring [place] Start: 01-01-2020 Creatinine monitoring Creatinine monitoring [place] Start: 01-01-2020 Potassium monitoring Potassium monitoring [place] Start: 01-01-2020 TSH Qn TSH testing [place] Start: 01-01-2020 TSH testing TSH testing [place] Start: 04-12-2019 Influenza vaccination Flu vaccine (#1) [place] Start: 01-28-2019 Annual Wellness Visit (AWV) Annual Wellness Visit (AWV) [place] Start: 08-29-2018 Pneumococcal 65+ years Vaccine (2 of 2 - PPSV23) Pneumococcal 65+ years Vaccine (2 of 2 - PPSV23) [place] Start: 08-29-2018 Pneumococcal vaccination Pneumococcal Vaccine(s) (65+ yrs) (2 - PPSV23 if available, else PCV20) [facility] Start: 10-24-2017 Pneumococcal vaccination Pneumococcal Vaccine(s) (65+ yrs) (2 - PPSV23 if available, else PCV20) [facility] Start: 10-24-2017 Pneumococcal Vaccine: 65+ Years (2 - PPSV23 if available, else PCV20) Pneumococcal Vaccine: 65+ Years (2 - PPSV23 if available, else PCV20) [facility] Start: 10-31-2000 Screening for osteoporosis Bone [facility]ensitometry [facility] Start: 10-31-1985 Shingles (RZV) Vaccine (1 of 2) Shingles (RZV) Vaccine (1 of 2) [facility] Start: 10-31-1985 Shingles Vaccine (1 of 2) Shingles Vaccine (1 of 2) [place] Start: 10-31-1985 Zoster Vaccines (1 of 2) Zoster Vaccines (1 of 2) [facility] Start: 10-31-1954 DTaP/Tdap/Td vaccine (1 - Tdap) DTaP/Tdap/Td vaccine (1 - Tdap) [place] Start: 10-31-1954 DTaP/Tdap/Td Vaccines (1 - Tdap) DTaP/Tdap/Td Vaccines (1 - Tdap) [facility] Start: 10-31-1953 Tetanus + diphtheria + acellular pertussis vaccine (product) Tdap Booster [facility] Start: 1947 Depresssion Monitoring Depresssion Monitoring [facility] Start: 1935 Diabetic retinal eye exam Eye Exam [facility] Start: 1935 Lipid panel Lipid Profile [facility] Start: 1935 Urine screening for protein Microalbumin [facility] Start: 1935 Basic metabolic 2000 panel - Serum or Plasma Basic Metabolic Panel [facility] Start: 1935 Diabetic foot examination Foot Exam [facility] Start: 1935 Screening for osteoporosis Bone Density Scan [facility] Start: 1935 Thyroid stimulating hormone measurement TSH [facility] Immunizations Immunization Date Immunization Notes Care Provider Fa cilimaile 12-21-2021 Hemoglobin A1C López Ayala DDS Work Phone: [facility] 09-07-2020 Pfizer Monovalent (1 2+ yrs) SARS-COV-2 (COVID-19) vaccine, mRNA, spike protein, LNP, pres. free, 30 mcg/0.3mL dose (OMM=592) López Ayala DDS Work Phone: [facility] 08-17-2020 Pfizer Monovalent (1 2+ yrs) SARS-COV-2 (COVID-19) vaccine, mRNA, spike protein, LNP, pres. free, 30 mcg/0.3mL dose (PRG=182) López Ayala DDS Work Phone: [facility] 08-29-2017 influenza, high dose seasonal, preservative-free [facility], [place] 08-29-2017 pneumococcal conjuga te vaccine, 13 valent [facility] 08-29-2017 influenza virus vaccine, unspecified formulation López Ayala DDS Work Phone: [facility] 09-19-2016 influenza, injectabl e, quadrivalent, contains preservative [facility] 06-16-2015 influenza virus vaccine, unspecified formulation [facility] Work Phone: 06-16-2015 influenza virus vaccine, whole virus López Ayala DDS Work Phone: [facility] Payers Date Payer Category Payer Self-pay [id number] 2024 Unknown [id number] 2022 Unknown [employer] [id number] 2022-Present [phone] [address] [place] [address] Indemnity [id number] 2022 Medicare [id number] 2022 Unknown [id number] 2017 Private Health Insurance [employer] HE[employer] MEDICARE SUPP [id number] 2017-Present [phone] [address] [place] [address] [id number] 2015 Medicare xxxxxxxxxxx [id number] 2015 Medicare [id number] 1935 Unknown [id number] 1935 Unknown [id number] Unknown [id number] Unknown [id number] Unknown [id number] Unknown [id number] Social History Date Type Detail Facility Start: 06-05-2019 End: 04-17-2022 Tobacco smoking status ORIS Never smoker [facility] Start: 06-05-2019 End: 07-31-2022 Alcohol intake Current non-drinker of alcohol (finding) [place], [place] Start: 1935 Sex Assigned At Not on file M [place], [place] Exposure to SARS-CoV -2 (event) Unable to assess [place] Start: 05-06-2020 End: 05-12-2020 Tobacco smoking status NHIS [facility] Start: 05-06-2020 End: 04-17-2022 Tobacco use and exposure Never used [facility] Start: 02-15-2023 End: 02-25-2023 Exposure to SARS-CoV-2 (event) Not sure [facility] MARY STEPHEN Start: 06-05-2019 End: 07-31-2022 Alcohol intake No [facility] MARY STEPHEN Start: 1935 Sex Assigned At Female W [facility] History of tobacco use Current smoker [facility] Start: 07-31-2022 History of Social function [facility] Tobacco smoking stat us ORIS Unknown if ever smoked [facility] Work Phone: Medical Equipment Procedure Code Equipment Code Equipment Origin al Text Equipment Identifier Dates Test daily fasti ng dx Dispense as covered by PT insurance [id number] Start: 01-14-2017 Dx E11.9 TEST ON CE DAILY PATIENT USES PRODIGY [id number] Start: 01-14-2017 Clinical Notes 06-19-2022 to 02-25-2023 Patricia Harris MD - 02/25/2023 9:45 AM EDTTelephone Encounter - Dial, [place] - 12/10/2022 4:18 PM EDTTelephone Encounter - Dial, [place] - 12/10/2022 4:18 PM Amanda Palmer - 06/19/2022 9:11 AM EST Note Date & Type Note Facility 02-25-2023 History of Presen t illness Narrative Images from the original note were not included. 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 No significant change in her back pain for 3 years. 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 We recommended continued maintenance of her strength level and continued formal physical therapy. We will go ahead and write an order for her to get formal physical therapy at [facility] care for her chronic weakness. Follow-up with neurology for any potential care for her left hemiparesis. Follow up if symptoms worsen or fail to improve, for call our office with any questions at [phone]. Patricia Harris MD 02/25/2023 10:03 AM Please note that portions of this note may have been completed with voice recognition software. Documentation reviewed prior to signing but minor errors in ribbon cutter may have occurred. documented in this encounter [facility] 12-10-2022 Telephone encounter Note Patient is calling [...] pick them up. Pls call pt @ [phone] Thank you [facility] 12-10-2022 Miscellaneous Notes Patient is calling to states she had her dentures made in oral surgery and Dr Ayala took them to realign them and she has never had them returned. Pls call pt @ [phone] Thank you Spoke with patient regarding her dentures. Explained to her that Dr. Ayala does not make dentures. Provided the contact information for [facility] and explained that if these dentures have been made by a [facility] provider, this is the department that will have them, otherwise she will need to see an outside dentist to have dentures made. Patient understood. Titus Ramirez DMD Oral & Maxillofacial Surgery, PGY-3 Team Pager: [phone] The patient called in looking for her [...] about this and can be reached at [phone] Thank You! documented in this encounter [facility] 12-10-2022 Miscellaneous Notes Patient is calling [...] pick them up. Pls call pt @ [phone] Thank you Spoke with patient regarding her dentures. Explained to her that Dr. Ayala does not make dentures. Provided the contact information for [facility] and explained that if these dentures have been made by a [facility] provider, this is the department that will have them, otherwise she will need to see an outside dentist to have dentures made. Patient understood. Titus Ramirez DMD Oral & Maxillofacial Surgery, PGY-3 Team Pager: [phone] The patient called in looking for her [...] about this and can be reached at [phone] Thank You! documented in this encounter [facility] 12-10-2022 Telephone encounter Note Spoke with patient regarding her dentures. Explained to her that Dr. Ayala does not make dentures. Provided the contact information for [facility] and explained that if these dentures have been made by a [facility] provider, this is the department that will have them, otherwise she will need to see an outside dentist to have dentures made. Patient understood. Titus Ramirez DMD Oral & Maxillofacial Surgery, PGY-3 Team Pager: [phone] [facility] Work Phone: 12-10-2022 Telephone encounter Note The [...] about this and can be reached at [phone] Thank You! [facility] 06-26-2022 Note I was personally pre sent for the otero portions of the procedure. López Ayala DDS [facility] 06-26-2022 History of Presen t illness Narrative I was personally present for the otero portions of the procedure. López Ayala DDS ORAL SURGERY PROCEDURE ROOM NOTE [facility] Product(s): Routine extraction teeth 2, 4, 5, 8, 9, 10, 11, 12, 14 under local anesthetic. PMH: Reviewed, no change. Antibiotic prophylaxis indicated/taken: not applicable Discussed risks, benefits, and alternatives of treatment. 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 documented in this encounter [facility] 06-19-2022 Note ORAL SURGERY PROCEDU RE ROOM NOTE [facility] Product(s): Routine extraction teeth 2, 4, 5, 8, 9, 10, 11, 12, 14 under local anesthetic. PMH: Reviewed, no change. Antibiotic prophylaxis indicated/taken: not applicable Discussed risks, benefits, and alternatives of treatment. 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 [facility] [phone]. HELPING THE HEALING PROCESS AND STOPPING THE [...] any questions or concerns please contact us: [facility] . Ask for the residential carpenter loss prevention research engineer (after hours). 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 documented in this encounter [facility] Evaluation note No assessment inform ation available [facility] Work Phone: Evaluation note Diagnosis Chronic [...] Lumbar pain Lumbago documented in this [facility] (narrative)* Consultation (Routine) - Pending Review Specialty Diagnoses / Procedures Referred By Tish thibodeaux Referred To Contact Physical Therapy Diagnoses Lumbar pain Lumbar radiculitis DDD (degenerative disc disease), lumbar Procedures [facility] OFFICE/OUTPATIENT [facility] 60-74 MINUTES Patricia Harris MD [address] [place] [address] Referral ID Status Reason Start Date Expiration Date Visits Requested Visits Authorized [id number] Pending Review Specialty Services Required 02/25/2023 02/25/[address] [facility] (narrative)No reason for referral [facility] Work Phone: Assessments Diagnosis HTN (hypertension), [...] FoundDocuments on File Type Date Recorded Patient Predatory Hunter Expl anation Advance Directives and Living Will Power of [place] Documents on File Type Date Recorded Patient Predatory Hunter Expl anation ACP-Advance Directive ACP-Power of [place] Latest Code Status on File Code Status Date Activated Date Inactivated Comments Full Code 04/28/2020 2:42 AM 04/30/2020 6:01 PM Discharge Instructions * Attachments The following attachments cannot be sent through Care Everywhere. * Stitches and Leonid Removal: General Info (Comoran) documented in this encounter* Attachments The following attachments cannot be sent through Care Everywhere. * Head Injury: Closed: General Info (Comoran) documented in this encounter Summary Purpose Family [...] syncopal episode head laceration healed well Procedures: Chantilly placed on a head laceration on the [...] Visit Chief Complaint LABWORK Chief Complaint LABWORK [facility] LABWORK Chief Complaint LABWORK [facility] LABWORK LABWORK Chief Complaint LABWORK LABWORK [facility] LAB WORK Chief Complaint [facility] LAB WOR K LABWORK Chief Complaint LABWORK [...] section and content) DATE CREATED AUTHOR 06/16/2020 [facility] DATE CREATED AUTHOR AUTHOR'S ORGANIZ ATION 12/11/2022 [facility] DATE CREATED AUTHOR AUTHOR'S ORGANIZ ATION 02/26/2023 [facility] DATE CREATED AUTHOR AUTHOR'S ORGANIZ ATION 12/24/2024 [facility] DATE CREATED AUTHOR AUTHOR'S ORGANIZ ATION 03/22/2025 [facility] Goals (unrecognized section and content) Goals may [...] HERNANDEZ Attending Provider, Referring Provid er Active Behavioral Geneticist Relationship Specialty Start Date End Date Maida Doshi MD [address] [place] [address] PCP - General Family Medicine 02/25/23 Behavioral Geneticist Relationship Specialty Start Date End Date Maida Doshi MD [address] [place] [address] PCP - General Family Medicine 02/25/23 Team [...] BE BASED ON THE PRIMARY CLINICAL RECORDS. [facility]. provides no warranty or guarantee of the accuracy or completeness of [phone] in [phone] [id number]
[2025-05-05 08:00] LABS: Mucous, Urine 0 SEEN /hpf (<or=2+); Red Blood Cells-Urine 0 SEEN /hpf (0-5)
[2025-05-05 08:25] LABS: Hematocrit 45.2 % (37-47); Hemoglobin 14.9 g/dL (12.0-15.0); Mean Corp Hgb Conc 33.0 g/dL (32-36); Mean Corpuscular Volume 95.4 fL (81-99); Mean Platelet Vol. 10.1 fl (6.2-12.0); Platelet Count 245 K/mm3 (150-450); RBC Distribution Width CV 12.7 % (11.6-14.6); RBC Distribution Width SD 45.1 fl (35.1-43.9); Red Blood Count 4.74 M/mm3 (4.2-5.4); White Blood Count 10.4 K/mm3 (4.4-11.0)
[2025-05-05 08:29] LABS: Color, Urine Yellow (Yellow); Glucose, Dipstick Normal (Normal); Ketone-Dipstick Negative (Negative); Leukocyte Esterase-Dipstick 500 /ul (Negative); Nitrite-Dipstick Negative (Negative); Occult Blood-Urine 25 /ul (Negative); Protein-Dipstick 15 mg/dl (Negative); Specific Gravity, Urine 1.020 (1.002-1.030); Urine Bilirubin Dipstick Negative (Negative)
[2025-05-05 08:39] LABS: Squamous Epithelial Cells - UA 0-5 SEEN /hpf (5-10)
[2025-05-05 08:40] LABS: Anion Gap 13 (5-15); BUN 14 mg/dL (4-19); BUN/Creat Ratio 33.3 RATIO (10-20); Calcium,Total 9.9 mg/dL (7.6-11.0); Carbon Dioxide 24.7 mmol/L (21.0-32.0); Chloride 103 mmol/L (98-108); Glucose 131 mg/dL (70-99); Potassium 4.1 mmol/L (3.3-5.1)
== END ==
LOC: OLS.ACW100 05:00
PROVIDERS: Visit Provider Family Medicine
DX: M62.82 Rhabdomyolysis (principal); R55 Syncope and collapse; Z74.1 Need for assistance with personal care; M62.81 Muscle weakness (generalized); R41.841 Cognitive communication deficit; R27.9 Unspecified lack of coordination; E11.9 Type 2 diabetes mellitus without complications; R53.1 Weakness
CPT/HCPCS: 36415; 80048; 81001; 85027; 87077; 87086; 87088; 87186

== ENCOUNTER → 2025-05-19 05:00 | Outpatient (REF) | payer MEDICAID, SELFPAY ==
[2025-05-19 08:27] LABS: Anion Gap 11 (5-15); BUN 16 mg/dL (4-19); BUN/Creat Ratio 31.5 RATIO (10-20); Calcium,Total 9.8 mg/dL (7.6-11.0); Carbon Dioxide 26.8 mmol/L (21.0-32.0); Chloride 104 mmol/L (98-108); Glucose 120 mg/dL (70-99); Potassium 4.3 mmol/L (3.3-5.1)
== END ==
LOC: OLS.ACW100 05:00
PROVIDERS: Visit Provider Family Medicine
DX: M62.82 Rhabdomyolysis (principal); R55 Syncope and collapse; Z74.1 Need for assistance with personal care; M62.81 Muscle weakness (generalized); R41.841 Cognitive communication deficit; R27.9 Unspecified lack of coordination; E11.9 Type 2 diabetes mellitus without complications
CPT/HCPCS: 36415; 80048

== ENCOUNTER → 2025-06-02 01:00 | Outpatient (REF) | payer MEDICAID, SELFPAY ==
--- OUTSIDE RECORDS SUMMARY | 2025-06-02 06:26 | XMS RPT_ITS | CCD ---
Author Organization [facility] ion [facility] ACCOUNTING SYSTEMS MANAGER [facility] Care Team Providers Care Button And Buckle Maker Name Role Phone Maida Doshi Primary Care [...] DINERO Attending Unavailable Adelfo Banks Attending Provider Unavailabl e Adelfo Banks Attending Unavailable Adelfo Banks Attending Unavailable Adelfo Banks Attending Unavailable Adelfo Banks Attending Unavailable Adelfo Banks Attending Unavailable Allergies Allergy Classification Reported Allergen(s) Allergy Type Date of Onset Reaction(s) Facility (5 sources) Adhesive Tape Propensity to adverse reactions to drug 5 [place] (5 sources) Penicillins Propensity to adverse reactions to drug [place] (5 sources) Sulfonamides (Antibiotic) Propensity to adverse reactions to drug 5 [place] (1 source) ADHESIVE TAPE-SILICONES; Translations: [ADHESIVE TAPE-SILICONES] Propensity to adverse reactions to drug (disorder) 0 [facility] Other [place] Repository Medications Current Medications Medication Drug Class(es) [...] 03-27-2021 atorvastatin (LIPITOR) 40 mg tablet B Mexesie-Uduagx-YO (VITAMIN B50 COMPLEX PO) (5 sources) B [...] Start: 04-28-2019 take 1 tablet by mani once daily citalopram (CELEXA) 20 MG tablet [...] 03-27-2021 vitamin D2 ergocalciferol (DRISDOL) 1.25 MG (56651 UT) capsule gabapentin 300 mg oral capsule [...] Translations: [Chronic periodontitis, unspecified] Onset: 06-19-2022 Chronic Disorders of teeth and jaw (5 sources) Carious exposure of pulp ; Translations: [Dental caries, unspecified] Onset: 06-19-2022 Episodic Essential hypertension (3 sources) Benign hypertension; Translations: [Essential (primary) hypertension] Onset: 07-06-2020 Chronic External cause codes: Fall (1 source) Fall; Translations: [Fall, initial encounter] Malaise and fatigue (1 source) Weakness; Translations: [Weakness] Onset: 05-10-2025 Episodic Mood disorders (11 sources) Depressive disorder; Translations: [...] Translations: [Body mass index (BMI) 45.0-49.9, adult ([facility])] Onset: 04-17-2022 Chronic Spondylosis; intervertebral disc disorders; other back problems (3 sources) Degeneration of lumbar intervertebral disc; Translations: [Other intervertebral disc degeneration, lumbar region] Onset: 02-25-2023 02-25-2023 Chronic Spondylosis; intervertebral disc disorders; other back problems (6 sources) Low back pain; Translations: [Lumbar pain] Onset: 02-25-2023 02-22-2023 Episodic Thyroid disorders (12 sources) Hypothyroidism; Translations: [Thyroid nodule] Onset: 06-16-2015 06-16-2015 Chronic Unclassified (1 source) Low back pain, unspecified; Translations: [Low back pain, unspecified] Onset: 02-25-2023 Past or Other Problems Problem Classification Problem Date Documented Date Episodic/Chronic Allergic reactions (11 sources) H/O: non-drug allergy; Translations: [Allergy status to unspecified drugs, medicaments and biological substances status] Onset: 06-16-2015 06-16-2015 Episodic Other connective tissue disease (1 source) Other symptoms and signs involving the musculoskeletal system; Translations: [Weakness of both lower extremities] Onset: 07-06-2020 Episodic Other connective tissue disease (1 source) Muscle weakness (generalized); Translations: [Muscle weakness (generalized)] Onset: 01-22-2025 Episodic Other injuries and conditions due to external causes (1 source) Injury of head; Translations: [Injury of head, initial encounter] Episodic Other screening for suspected conditions (not mental disorders or infectious disease) (1 source) Blood chemistry abnormal; Translations: [Abnormal finding of blood chemistry, unspecified] Episodic Septicemia (except in labor) (1 source) Sepsis, unspecified organism; Translations: [Sepsis, unspecified organism] Onset: 01-22-2025 Episodic Superficial injury; contusion (1 source) Hematoma of scalp; Translations: [Scalp hematoma, initial encounter] Episodic Syncope (4 sources) Syncope and collapse; Translations: [Syncope and collapse] Onset: 04-27-2020 Resolved: 04-30-2020 04-30-2020 Episodic Unclassified (1 source) Low back pain, unspecified; Translations: [Low back pain, unspecified] Onset: 02-25-2023 Urinary tract infections (2 sources) Acute pyelonephritis; Translations: [Acute cystitis without hematuria] Onset: 01-22-2025 Episodic Results Test Name Value Interpretation Reference Range Facility Anion gap in Serum or Plasma Ordered By: Adelfo Dhaliwal on 01-11-2025 Anion gap [Moles/Vol] 10 mmol/L 12-24 [facility] BUN/creatinine ratioOrdered By: Adelfo Dhaliwal on 01-11-2025 Urea nitrogen/Creatinine [Mass ratio] 32.4 mg/mg High 05-31 [facility] CBC-Complete Blood Cnt No Di ffon 01-11-2025 Erythrocyte distribution width (RBC) [Ratio] 12.4 % Normal 11.6-14.6 [facility] Comment on above: Order Comment: 119-1 Performed By: #### L 100.0500 #### [facility] [address] [place], [address] Hematocrit (Bld) [Volume fraction] 42.8 % Normal 37-47 [facility] Comment on above: Order Comment: 119-1 Performed By: #### L 100.0500 #### [facility] [address] [place], [address] Hemoglobin (Bld) [Mass/Vol] 14.1 g/dL Normal 12.0-15.0 [facility] Comment on above: Order Comment: 119-1 Performed By: #### L 100.0500 #### [facility] [address] [place], [address] MCH (RBC) [Entitic mass] 31.6 pg Normal 27.0-32.0 [facility] Comment on above: Order Comment: 119-1 Performed By: #### L 100.0500 #### [facility] [address] [place], [address] MCHC (RBC) [Mass/Vol] 32.9 g/dL Normal 32-36 [facility] Comment on above: Order Comment: 119-1 Performed By: #### L 100.0500 #### [facility] [address] [place], [address] MCV (RBC) [Entitic vol] 96.0 fL Normal 81-99 [facility] Comment on above: Order Comment: 119-1 Performed By: #### L 100.0500 #### [facility] [address] [place], [address] Platelet mean volume (Bld) [Entitic vol] 9.6 fL Normal 6.2-12.0 [facility] Comment on above: Order Comment: 119-1 Performed By: #### L 100.0500 #### [facility] [address] [place], [address] Platelets (Bld) [#/Vol] 234 10*3/uL Normal 150-450 [facility] Comment on above: Order Comment: 119-1 Performed By: #### L 100.0500 #### [facility] [address] [place], [address] RBC (Bld) [#/Vol] 4.46 10*6/uL Normal 4.2-5.4 [facility] Comment on above: Order Comment: 119-1 Performed By: #### L 100.0500 #### [facility] [address] [place], [address] RDW SD 44.0 fl High 35.1-43.9 [facility] Comment on above: Order Comment: 119-1 Performed By: #### L 100.0500 #### [facility] [address] [place], [address] WBC (Bld) [#/Vol] 8.7 10*3/uL Normal 4.4-11.0 [facility] Comment on above: Order Comment: 119-1 Performed By: #### L 100.0500 #### [facility] [address] [place], [address] Calculated very low density lipoprotein (VLDL) cholesterol measurementOrdered By: Adelfo Dhaliwal on 01-11-2025 Calculated very low density lipoprotein (VLDL) cholesterol measurement 31 mg/dL 5-40 [facility] Carbon dioxide, total [Moles /volume] in Central venous bloodOrdered By: Adelfo Dhaliwal on 01-11-2025 CO2 [Moles/Vol] 26.7 mmol/L 21.0-32.0 [facility] Chloride assayOrdered By: Danielle Dhaliwal on 01-11-2025 Chloride [Moles/Vol] 103 mmol/L 98-108 [facility] Erythrocyte distribution wid th ratioOrdered By: Abelino Underwood on 01-11-2025 Erythrocyte distribution width (RBC) [Ratio] 12.4 % 11.6-14.6 [facility] Erythrocyte distribution wid th standard deviationOrdered By: Abelino Underwood on 01-11-2025 Erythrocyte distribution width (RBC) [Ratio] 44.0 fl High 35.1-43.9 [facility] Glomerular filtration rate ( GFR) estimation/1.73 sq m using serum, plasma, or whole bOrdered By: Adelfo Dhaliwal on 01-11-2025 GFR/1.73 sq M.predicted among non-blacks MDRD (S/P/Bld) [Vol rate/Area] 92 mL/min/{1.73_m2} >60 [facility] Comment on above: mL/min/1.73m2 CKD-EP I Creatinine Equation (2020) Hematocrit Auto (Bld) [Volum e fraction]Ordered By: Abelino Underwood on 01-11-2025 Hematocrit (Bld) [Volume fraction] 42.8 % 37-47 [facility] Hemoglobin A1c percentageOrd ered By: Adelfo Dhaliwal on 01-11-2025 HbA1c (Bld) [Mass fraction] 8.0 % High <5.7 [facility] Comment on above: Normal < 5.7 % Predi abetic 5.7 - 6.4 % Diabetic >or= 6.5 % Please note range changes. Hemoglobin measurementOrdere d By: Abelino Underwood on 01-11-2025 Hemoglobin (Bld) [Mass/Vol] 14.1 g/dL 12.0-15.0 [facility] LDL calc ser/plasOrdered By: Adelfo Dhaliwal on 01-11-2025 Cholesterol in LDL [Mass/Vol] 169 mg/dL [facility] Comment on above: Ipuzdicsyg=853-009 m g/dL & Higher Osgr=441 mg/dL or greater MCV (mean corpuscular volume ) determinationOrdered By: Abelino Underwood on 01-11-2025 MCV (RBC) [Entitic vol] 96.0 fL 81-99 [facility] Magnesium measurement (mass/ volume)Ordered By: Adelfo Dhaliwal on 01-11-2025 Magnesium (Unsp spec) [Mass/Vol] 1.9 mg/dL 1.5-2.2 [facility] Mean corpuscular hemoglobin (MCH) determinationOrdered By: Abelino Underwood on 01-11-2025 MCH (RBC) [Entitic mass] 31.6 pg 27.0-32.0 [facility] Mean corpuscular hemoglobin concentration (MCHC) determinationOrdered By: Abelino Underwood on 01-11-2025 MCHC (RBC) [Mass/Vol] 32.9 g/dL 32-36 [facility] Mean platelet volume determi nationOrdered By: Abelino Underwood on 01-11-2025 Platelet mean volume (Bld) [Entitic vol] 9.6 fL 6.2-12.0 [facility] Platelet countOrdered By: Raphael Barnes on 01-11-2025 Platelets (Bld) [#/Vol] 234 10*3/uL 150-450 [facility] Potassium measurement (mass/ volume)Ordered By: Adelfo Dhaliwal on 01-11-2025 Potassium (Unsp spec) [Mass/Vol] 4.2 mmol/L 3.3-5.1 [facility] RBC Auto (Bld) [#/Vol]Ordere d By: Abelino Underwood on 01-11-2025 RBC (Bld) [#/Vol] 4.46 10*6/uL 4.2-5.4 [facility] Screening total cholesterol/ high density lipoprotein (HDL) cholesterol ratioOrdered By: Adelfo Dhaliwal on 01-11-2025 Cholesterol.total/Choles terol in HDL [Mass ratio] 5.68 {ratio} [facility] Serum creatinine measurement (mass/volume)Ordered By: Adelfo Dhaliwal on 01-11-2025 Creatinine [Mass/Vol] 0.45 mg/dL Low 0.70-1.20 [facility] Serum glucose measurement (m ass/volume)Ordered By: Adelfo Dhaliwal on 01-11-2025 Glucose [Mass/Vol] 143 mg/dL High 70-99 [facility] Serum or plasma calcium ivette urement (mass/volume)Ordered By: Adelfo Dhaliwal on 01-11-2025 Calcium [Mass/Vol] 9.7 mg/dL 7.6-11.0 [facility] Serum or plasma cholesterol in HDL measurement (mass/volume)Ordered By: Adelfo Dhaliwal on 01-11-2025 Cholesterol in HDL [Mass/Vol] 43 mg/dL >40 [facility] Comment on above: National Cholesterol Education Program (NCEP) guidelines:<40 mg/dL: Low HDL-cholesterol (major risk factor for CHD)>= 60 mg/dL: High HDL-cholesterol (negative risk factor for CHD)HDL-cholesterol is affected by a number of factors, e.g. smoking, exercise, hormones, sex and age. Serum or plasma cholesterol measurement (mass/volume)Ordered By: Adelfo Dhaliwal on 01-11-2025 Cholesterol [Mass/Vol] 243 mg/dL High <201 [facility] Comment on above: Cholesterol level, D esirable <200 mg/dLBorderline high cholesterol 200-239 mg/dLHigh cholesterol >=240 mg/dLRecommendations of the NCEP Adult Treatment Panel for the following risk-cutoff thresholds for the [place] population. Serum or plasma triiodothyro nine (T3) measurement (mass/volume)Ordered By: Adelfo Dhaliwal on 01-11-2025 T3 [Mass/Vol] 0.70 ng/mL Low 0.80-2.00 [facility] Serum or plasma urea nitroge n measurement (mass/volume)Ordered By: Adelfo Dhaliwal on 01-11-2025 Urea nitrogen [Mass/Vol] 15 mg/dL 4-19 [facility] Sodium levelOrdered By: Tahir Dhaliwal on 01-11-2025 Sodium [Moles/Vol] 139 mmol/L 133-145 [facility] TSH DL <= 0.005 mIU/L QnOrde red By: Adelfo Dhaliwal on 01-11-2025 TSH Qn 2.080 uIU/mL 0.300-4.200 [facility] ThyroxineOrdered By: Adelfo Dhaliwal on 01-11-2025 T4 [Mass/Vol] 6.7 ug/dL 4.8-13.9 [facility] Triglycerides measurementOrd ered By: Adelfo Dhaliwal on 01-11-2025 Triglyceride [Mass/Vol] 154 mg/dL <199 [facility] Comment on above: The drugs N-Acetylcy steine and Metamizole may falsely depress this assay. Normal range: <150 mg/dLBorderline High: 150-199 mg/dLHigh: 200-499 mg/dLVery High: >500 mg/dL White blood cell (WBC) count Ordered By: Abelino Underwood on 01-11-2025 WBC (Bld) [#/Vol] 8.7 10*3/uL 4.4-11.0 [facility] CBC W Auto Differential pane l (Bld)on 12-23-2024 Basophils (Bld) [#/Vol] 0.05 10*3/uL Normal <0.11 [facility] Comment on above: Order Comment: Speci men Type: BLOOD SPECIMEN Ordering Facility: [facility] Address: [address] [place] [address] Performed By: #### 5 7021-8 #### [facility] CLIA [id number] [address] [place] [address] [place] Basophils/100 WBC (Bld) 0.5 % Normal [facility] Comment on above: Order Comment: Speci men Type: BLOOD SPECIMEN Ordering Facility: [facility] Address: [address] [place] [address] Performed By: #### 5 7021-8 #### [facility] CLIA [id number] [address] [place] [address] [place] Differential cell count method Nom (Bld) Auto Normal [facility] Comment on above: Order Comment: Speci men Type: BLOOD SPECIMEN Ordering Facility: [facility] Address: [address] [place] [address] Performed By: #### 5 7021-8 #### [facility] CLIA [id number] [address] [place] [address] [place] Eosinophils (Bld) [#/Vol] 0.27 10*3/uL Normal <0.46 [facility] Comment on above: Order Comment: Speci men Type: BLOOD SPECIMEN Ordering Facility: [facility] Address: [address] [place] [address] Performed By: #### 5 7021-8 #### [facility] CLIA [id number] [address] [place] [address] [place] Eosinophils/100 WBC (Bld) 2.9 % Normal [facility] Comment on above: Order Comment: Speci men Type: BLOOD SPECIMEN Ordering Facility: [facility] Address: [address] [place] [address] Performed By: #### 5 7021-8 #### [facility] CLIA [id number] [address] [place] Erythrocyte distribution width (RBC) [Ratio] 12.9 % Normal 11.5-15.0 [facility] Comment on above: Order Comment: Speci men Type: BLOOD SPECIMEN Ordering Facility: [facility] Address: [address] [place] [address] Performed By: #### 5 7021-8 #### [facility] CLIA [id number] [address] [place] [address] [place] Hematocrit (Bld) [Volume fraction] 43.7 % Normal 36.0-46.0 [facility] Comment on above: Order Comment: Speci men Type: BLOOD SPECIMEN Ordering Facility: [facility] Address: [address] [place] [address] Performed By: #### 5 7021-8 #### [facility] CLIA [id number] [address] [place] Hemoglobin (Bld) [Mass/Vol] 14.3 g/dL Normal 11.5-15.5 [facility] Comment on above: Order Comment: Speci men Type: BLOOD SPECIMEN Ordering Facility: [facility] Address: [address] [place] [address] Performed By: #### 5 7021-8 #### [facility] CLIA [id number] [address] [place] Immature granulocytes (Bld) [#/Vol] 0.04 10*3/uL Normal <0.10 [facility] Comment on above: Order Comment: Speci men Type: BLOOD SPECIMEN Ordering Facility: [facility] Address: [address] [place] [address] Performed By: #### 5 7021-8 #### [facility] CLIA [id number] [address] Immature granulocytes/100 WBC (Bld) 0.4 % Normal [facility] Comment on above: Order Comment: Speci men Type: BLOOD SPECIMEN Ordering Facility: [facility] Address: [address] [place] [address] Performed By: #### 5 7021-8 #### [facility] CLIA [id number] [address] Lymphocytes (Bld) [#/Vol] 3.54 10*3/uL Normal 1.00-4.00 [facility] Comment on above: Order Comment: Speci men Type: BLOOD SPECIMEN Ordering Facility: [facility] Address: [address] [place] [address] Performed By: #### 5 7021-8 #### [facility] CLIA [id number] [address] Lymphocytes/100 WBC (Bld) 38.6 % Normal [facility] Comment on above: Order Comment: Speci men Type: BLOOD SPECIMEN Ordering Facility: [facility] Address: [address] [place] [address] Performed By: #### 5 7021-8 #### [facility] CLIA [id number] [address] MCH (RBC) [Entitic mass] 31.4 pg Normal 26.0-34.0 [facility] Comment on above: Order Comment: Speci men Type: BLOOD SPECIMEN Ordering Facility: [facility] Address: [address] [place] [address] Performed By: #### 5 7021-8 #### [facility] CLIA [id number] [address] MCHC (RBC) [Mass/Vol] 32.7 g/dL Normal 30.5-36.0 [facility] Comment on above: Order Comment: Speci men Type: BLOOD SPECIMEN Ordering Facility: [facility] Address: [address] [place] [address] Performed By: #### 5 7021-8 #### [facility] CLIA [id number] [address] MCV (RBC) [Entitic vol] 96.0 fL Normal 80.0-100.[address] [facility] Comment on above: Order Comment: Speci men Type: BLOOD SPECIMEN Ordering Facility: [facility] Address: [address] [place] [address] Performed By: #### 5 7021-8 #### [facility] CLIA [id number] [address] [place] [address] [place] Monocytes (Bld) [#/Vol] 0.59 10*3/uL Normal <0.87 [facility] Comment on above: Order Comment: Speci men Type: BLOOD SPECIMEN Ordering Facility: [facility] Address: [address] [place] [address] Performed By: #### 5 7021-8 #### [facility] CLIA [id number] [address] [place] [address] [place] Monocytes/100 WBC (Bld) 6.4 % Normal [facility] Comment on above: Order Comment: Speci men Type: BLOOD SPECIMEN Ordering Facility: [facility] Address: [address] [place] [address] Performed By: #### 5 7021-8 #### [facility] CLIA [id number] [address] [place] [address] [place] Neutrophils (Bld) [#/Vol] 4.68 10*3/uL Normal 1.45-7.50 [facility] Comment on above: Order Comment: Speci men Type: BLOOD SPECIMEN Ordering Facility: [facility] Address: [address] [place] [address] Performed By: #### 5 7021-8 #### [facility] CLIA [id number] [address] [place] Neutrophils/100 WBC (Bld) 51.2 % Normal [facility] Comment on above: Order Comment: Speci men Type: BLOOD SPECIMEN Ordering Facility: [facility] Address: [address] [place] [address] Performed By: #### 5 7021-8 #### [facility] CLIA [id number] [address] [place] [address] [place] Nucleated RBC (Bld) [#/Vol] 10*3/uL Normal <0.01 [facility] Comment on above: Order Comment: Speci men Type: BLOOD SPECIMEN Ordering Facility: [facility] Address: [address] [place] [address] Performed By: #### 5 7021-8 #### [facility] CLIA [id number] [address] [place] Nucleated RBC/100 WBC (Bld) [Ratio] 0.0 /100 WBC Normal [facility] Comment on above: Order Comment: Speci men Type: BLOOD SPECIMEN Ordering Facility: [facility] Address: [address] [place] [address] Performed By: #### 5 7021-8 #### [facility] CLIA [id number] [address] [place] Platelet mean volume (Bld) [Entitic vol] 9.8 fL Normal 9.0-12.7 [facility] Comment on above: Order Comment: Speci men Type: BLOOD SPECIMEN Ordering Facility: [facility] Address: [address] [place] [address] Performed By: #### 5 7021-8 #### [facility] CLIA [id number] [address] [place] Platelets (Bld) [#/Vol] 255 10*3/uL Normal 150-400 [facility] Comment on above: Order Comment: Speci men Type: BLOOD SPECIMEN Ordering Facility: [facility] Address: [address] [place] [address] Performed By: #### 5 7021-8 #### [facility] CLIA [id number] [address] [place] RBC (Bld) [#/Vol] 4.55 10*6/uL Normal 3.90-5.20 [facility] Comment on above: Order Comment: Speci men Type: BLOOD SPECIMEN Ordering Facility: [facility] Address: [address] [place] [address] Performed By: #### 5 7021-8 #### [facility] CLIA [id number] [address] [place] WBC (Bld) [#/Vol] 9.17 10*3/uL Normal 3.70-11.00 [facility] Comment on above: Order Comment: Speci men Type: BLOOD SPECIMEN Ordering Facility: [facility] Address: [address] [place] [address] Performed By: #### 5 7021-8 #### [facility] CLIA [id number] [address] Comprehensive metabolic 2000 panelon 12-23-2024 Albumin [Mass/Vol] 3.7 g/dL Low 3.9-4.9 [facility] Comment on above: Order Comment: Speci men Type: BLOOD SPECIMEN Ordering Facility: [facility] Address: [address] [place] [address] Performed By: #### 2 4323-8, 3040-3 #### [facility] CLIA [id number] [address] [place] [address] [place] ALP [Catalytic activity/Vol] 86 U/L Normal 34-123 [facility] Comment on above: Order Comment: Speci men Type: BLOOD SPECIMEN Ordering Facility: [facility] Address: [address] [place] [address] Performed By: #### 2 4323-8, 3040-3 #### [facility] CLIA [id number] [address] STATES [facility] ALT [Catalytic activity/Vol] 9 U/L Normal 7-38 [facility] Comment on above: Order Comment: Speci men Type: BLOOD SPECIMEN Ordering Facility: [facility] Address: [address] [place] [address] Performed By: #### 2 4323-8, 3040-3 #### [facility] CLIA [id number] [address] Anion gap [Moles/Vol] 8 mmol/L Normal 8-15 [facility] Comment on above: Order Comment: Speci men Type: BLOOD SPECIMEN Ordering Facility: [facility] Address: [address] [place] [address] Performed By: #### 2 4323-8, 3040-3 #### [facility] CLIA [id number] [address] [place] AST [Catalytic activity/Vol] 12 U/L Low 13-35 [facility] Comment on above: Order Comment: Speci men Type: BLOOD SPECIMEN Ordering Facility: [facility] Address: [address] [place] [address] Performed By: #### 2 4323-8, 3040-3 #### [facility] CLIA [id number] [address] [place] [address] [place] Bilirubin [Mass/Vol] 0.7 mg/dL Normal 0.2-1.3 [facility] Comment on above: Order Comment: Speci men Type: BLOOD SPECIMEN Ordering Facility: [facility] Address: [address] [place] [address] Performed By: #### 2 4323-8, 0-3 #### [facility] CLIA [id number] [address] [place] [address] [place] Calcium [Mass/Vol] 9.7 mg/dL Normal 8.5-10.2 [facility] Comment on above: Order Comment: Speci men Type: BLOOD SPECIMEN Ordering Facility: [facility] Address: [address] [place] [address] Performed By: #### 2 4323-8, 0-3 #### [facility] CLIA [id number] [address] [place] [address] [place] Chloride [Moles/Vol] 103 mmol/L Normal 98-107 [facility] Comment on above: Order Comment: Speci men Type: BLOOD SPECIMEN Ordering Facility: [facility] Address: [address] [place] [address] Performed By: #### 2 4323-8, 0-3 #### [facility] CLIA [id number] [address] [place] [address] [place] CO2 [Moles/Vol] 30 mmol/L Normal 22-30 [facility] Comment on above: Order Comment: Speci men Type: BLOOD SPECIMEN Ordering Facility: [facility] Address: [address] [place] [address] Performed By: #### 2 4323-8, 3040-3 #### [facility] CLIA [id number] [address] [place] [address] [place] Creatinine [Mass/Vol] 0.47 mg/dL Low 0.58-0.96 [facility] Comment on above: Order Comment: Jose garcia Type: BLOOD SPECIMEN Ordering Facility: [facility] Address: [address] [place] [address] Performed By: #### 2 4323-8, 3040-3 #### [facility] CLIA [id number] [address] [place] [address] [place] Creatinine and Glomerular filtration rate.predicted panel (S/P/Bld) 91 mL/min/1.73m??? Normal >=60 [facility] Comment on above: Order Comment: Jose garcia Type: BLOOD SPECIMEN Ordering Facility: [facility] Address: [address] [place] [address] Result Comment: Lisa mated Glomerular Filtration Rate [...] Performed By: #### 2 4323-8, 3040-3 #### [facility] CLIA [id number] [address] [place] [address] [place] Glucose [Mass/Vol] 161 mg/dL High 74-99 [facility] Comment on above: Order Comment: Jose garcia Type: BLOOD SPECIMEN Ordering Facility: [facility] Address: [address] [place] [address] Result Comment: The [place] [employer] Association (ADA) provides guidance for cutoff [...] Standards of Medical Care in Diabetes 2016, [place] [employer]. Diabetes Care. 2016.39(Suppl 1). Performed By: #### 2 4323-8, 3040-3 #### [facility] CLIA [id number] [address] [place] [address] [place] Potassium [Moles/Vol] 4.5 mmol/L Normal 3.7-5.1 [facility] Comment on above: Order Comment: Speci men Type: BLOOD SPECIMEN Ordering Facility: [facility] Address: [address] [place] [address] Performed By: #### 2 4323-8, 3040-3 #### [facility] CLIA [id number] [address] [place] [address] [place] Protein [Mass/Vol] 6.5 g/dL Normal 6.3-8.0 [facility] Comment on above: Order Comment: Speci men Type: BLOOD SPECIMEN Ordering Facility: [facility] Address: [address] [place] [address] Performed By: #### 2 4323-8, 3040-3 #### [facility] CLIA [id number] [address] [place] [address] [place] Sodium [Moles/Vol] 141 mmol/L Normal 136-144 [facility] Comment on above: Order Comment: Speci men Type: BLOOD SPECIMEN Ordering Facility: [facility] Address: [address] [place] [address] Performed By: #### 2 4323-8, 3040-3 #### [facility] CLIA [id number] [address] [place] [address] [place] Urea nitrogen [Mass/Vol] 15 mg/dL Normal 7-21 [facility] Comment on above: Order Comment: Speci men Type: BLOOD SPECIMEN Ordering Facility: [facility] Address: [facility] [place] [address] Performed By: #### 2 4323-8, 3040-3 #### [facility] CLIA [id number] [address] [place] [address] [place] Albumin [Mass/Vol] 3.7 g/dL Low 3.9-4.9 [facility] Comment on above: Order Comment: Speci men Type: BLOOD SPECIMEN Ordering Facility: [facility] Address: [address] [place] [address] Performed By: #### 1 9123-04, 76204-9 #### [facility] CLIA [id number] [address] ALP [Catalytic activity/Vol] Normal [facility] Comment on above: Order Comment: Speci men Type: BLOOD SPECIMEN Ordering Facility: [facility] Address: [address] [place] [address] Result Comment: Unab le to assay due to interference from hemolysis. Suggest reorder as clinically indicated. Performed By: #### 1 9123-04, 12548-4 #### [facility] CLIA [id number] [address] STATES OF [facility] ALT [Catalytic activity/Vol] Normal [facility] Comment on above: Order Comment: Speci men Type: BLOOD SPECIMEN Ordering Facility: [facility] Address: [address] [place] [address] Result Comment: Unab le to assay due to interference from hemolysis. Suggest reorder as clinically indicated. Performed By: #### 1 9, 93338-8 #### [facility] CLIA [id number] [address] STATES [facility] Anion gap [Moles/Vol] Normal [facility] Comment on above: Order Comment: Speci men Type: BLOOD SPECIMEN Ordering Facility: [facility] Address: [address] [place] [address] Result Comment: Unab le to calculate due to hemolysis. Performed By: #### 1 9, 54926-4 #### [facility] CLIA [id number] [address] [place] AST [Catalytic activity/Vol] [facility] Comment on above: Order Comment: Speci men Type: BLOOD SPECIMEN Ordering Facility: [facility] Address: [address] [place] [address] Result Comment: Unab le to assay due to interference from hemolysis. Suggest reorder as clinically indicated. Performed By: #### 1 9122-9, 06050-6 #### [facility] CLIA [id number] [address] [place] [address] [place] Bilirubin [Mass/Vol] 0.6 mg/dL Normal 0.2-1.3 [facility] Comment on above: Order Comment: Speci men Type: BLOOD SPECIMEN Ordering Facility: [facility] Address: [address] [place] [address] Performed By: #### 1 9123-9, 77506-7 #### [facility] CLIA [id number] [address] [place] [address] [place] Calcium [Mass/Vol] 9.8 mg/dL Normal 8.5-10.2 [facility] Comment on above: Order Comment: Speci men Type: BLOOD SPECIMEN Ordering Facility: [facility] Address: [address] [place] [address] Performed By: #### 1 9123-9, 00245-3 #### [facility] CLIA [id number] [address] [place] [address] [place] Chloride [Moles/Vol] 100 mmol/L Normal 98-107 [facility] Comment on above: Order Comment: Speci men Type: BLOOD SPECIMEN Ordering Facility: [facility] Address: [address] [place] [address] Performed By: #### 1 9123-9, 79284-3 #### [facility] CLIA [id number] [address] [place] [address] [place] CO2 [Moles/Vol] Normal [facility] Comment on above: Order Comment: Speci men Type: BLOOD SPECIMEN Ordering Facility: [facility] Address: [address] [place] [address] Result Comment: Unab le to assay due to interference from hemolysis. Suggest reorder as clinically indicated. Performed By: #### 1 9123-9, 64257-8 #### [facility] CLIA [id number] [address] [place] [address] [place] Creatinine [Mass/Vol] 0.35 mg/dL Low 0.58-0.96 [facility] Comment on above: Order Comment: Speci men Type: BLOOD SPECIMEN Ordering Facility: [facility] Address: [address] [place] [address] Performed By: #### 1 9123-9, 82596-7 #### [facility] CLIA [id number] [address] [place] [address] [place] [facility] Creatinine and Glomerular filtration rate.predicted panel (S/P/Bld) 98 mL/min/1.73m??? Normal >=60 [facility] Comment on above: Order Comment: Jose garcia Type: BLOOD SPECIMEN Ordering Facility: [facility] Address: [address] [place] [address] Result Comment: Lisa mated Glomerular Filtration Rate [...] actual GFR. Performed By: #### 1 9123-9, 19508-7 #### [facility] CLIA [id number] [address] [place] [address] [place] Glucose [Mass/Vol] 150 mg/dL High 74-99 [facility] Comment on above: Order Comment: Jose garcia Type: BLOOD SPECIMEN Ordering Facility: [facility] Address: [address] [place] [address] Result Comment: The [place] Diabetes Association (ADA) provides guidance for cutoff [...] Standards of Medical Care in Diabetes 2016, [place] [employer]. Diabetes Care. 2016.39(Suppl 1). Performed By: #### 1 9123-9, 13084-6 #### [facility] CLIA [id number] [address] [place] [address] [place] Potassium [Moles/Vol] Normal [facility] Comment on above: Order Comment: Speci men Type: BLOOD SPECIMEN Ordering Facility: [facility] Address: [address] [place] [address] Result Comment: Unab le to assay due to interference from hemolysis. Suggest reorder as clinically indicated. Performed By: #### 1 9123-9, 14847-9 #### [facility] CLIA [id number] [address] [place] [address] [place] Protein [Mass/Vol] [facility] Comment on above: Order Comment: Speci men Type: BLOOD SPECIMEN Ordering Facility: [facility] Address: [address] [place] [address] Result Comment: Unab le to assay due to interference from hemolysis. Suggest reorder as clinically indicated. Performed By: #### 1 9123-9, 04240-6 #### [facility] CLIA [id number] [address] Sodium [Moles/Vol] 135 mmol/L Low 136-144 [facility] Comment on above: Order Comment: Speci men Type: BLOOD SPECIMEN Ordering Facility: [facility] Address: [address] [place] [address] Performed By: #### 1 9123-9, 13677-7 #### [facility] CLIA [id number] [address] Urea nitrogen [Mass/Vol] 16 mg/dL Normal 7-21 [facility] Comment on above: Order Comment: Speci men Type: BLOOD SPECIMEN Ordering Facility: [facility] Address: [address] [place] [address] Performed By: #### 1 9123-9, 60175-4 #### [facility] CLIA [id number] [address] OF [facility] ED NOTEon 12-23-2024 ED NOTE HNO ID: [id number] Author: THERESE ZAVALA, NINFA Service: Nursing Author Type: Registered Nurse Type: ED Notes Filed: 12/23/2024 12:59 Note Text: Report given to MMT transport at bedside. [facility] ED NOTE HNO ID: [id number] Author: THERESE ZAVALA, RN Service: Nursing Author Type: Registered Nurse Type: ED Notes Filed: 12/23/2024 12:21 Note Text: Report called to nursing facility by this RN. [facility] ED NOTE HNO ID: [id number] Author: MILEY KABA, NINFA Service: ? Author Type: Registered Nurse Type: ED Notes Filed: 12/23/2024 06:17 Note Text: Pt incontinent of large amount of urine. Pt cleaned up and external catheter placed. [facility] ED PROGRESS NOTE (PROVIDER)o n 12-23-2024 ED PROGRESS NOTE (PROVIDER) HNO ID: [id number] Author: THERESE DINERO DO Service: Emergency Medicine [...] 23, 2024 TIME: 8:37 AM PAGER/CONTACT #: [facility] ED PROV NOTEon 12-23-2024 ED PROV NOTE HNO ID: [id number] Author: CAMERON NEVAREZ DO Service: Emergency Medicine Author Type: Physician Type: ED Provider Notes Filed: 12/23/2024 06:17 Note Text: ED Provider Note Patient Name: Raudel Ahumada : 1935 SERVICE DATE: 12/23/24 History Patient presents with: Altered Level Of Consciousness: Pt BIB EMS from [facility]. Per EMS the jail staff was unable to wake her this [...] changes in stool. 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 Normal [facility] Lipase SerPl-cCncon 12-24-19 Lipase [Catalytic activity/Vol] 10 U/L Low 16-61 [facility] Comment on above: Order Comment: Speci men Type: BLOOD SPECIMENOrdering Facility: [facility] Address: [address] [place] [address] Performed By: #### 2 4323-8, 3040-3 ####[facility] [id number] [place] [address] [place] Magnesium SerPl-mCncon 12-23 Magnesium [Mass/Vol] 2.0 mg/dL Normal 1.7-2.3 [facility] Comment on above: Order Comment: Speci men Type: BLOOD SPECIMEN Ordering Facility: [facility] Address: [address] [place] [address] Performed By: #### 1 9123-9, 76044-8 #### [facility] CLIA [id number] [address] Urinalysis complete panel (U )on 12-23-2024 Bacteria LM.HPF (Urine sed) [#/Area] Rare Abnormal None Seen [facility] Comment on above: Order Comment: Speci men Type: URINE SPECIMEN Ordering Facility: [facility] Address: [address] [place] [address] Performed By: #### 2 4356-8 #### [facility] CLIA [id number] [address] [place] [address] Bilirubin Ql (U) Negative Normal Negative [facility] Comment on above: Order Comment: Speci men Type: URINE SPECIMEN Ordering Facility: [facility] Address: [address] [place] [address] Performed By: #### 2 4356-8 #### [facility] CLIA [id number] [address] [place] [address] [place] Clarity (Unsp spec) Clear Normal Clear [facility] Comment on above: Order Comment: Speci men Type: URINE SPECIMEN Ordering Facility: [facility] Address: [address] [place] [address] Performed By: #### 2 4356-8 #### [facility] CLIA [id number] [address] Color (U) Yellow Normal Yellow [facility] Comment on above: Order Comment: Speci men Type: URINE SPECIMEN Ordering Facility: [facility] Address: [address] [place] [address] Performed By: #### 2 4356-8 #### [facility] CLIA [id number] [address] Epithelial cells LM.HPF (Urine sed) [#/Area] Few Normal [facility] Comment on above: Order Comment: Speci men Type: URINE SPECIMEN Ordering Facility: [facility] Address: [address] [place] [address] Performed By: #### 2 4356-8 #### [facility] CLIA [id number] [address] [place] Glucose Test strip (U) [Mass/Vol] Negative Normal Negative [facility] Comment on above: Order Comment: Speci men Type: URINE SPECIMEN Ordering Facility: [facility] Address: [address] [place] [address] Performed By: #### 2 4356-8 #### [facility] CLIA [id number] [address] Hemoglobin Ql (U) Negative Normal Negative [facility] Comment on above: Order Comment: Speci men Type: URINE SPECIMEN Ordering Facility: [facility] Address: [address] [place] [address] Performed By: #### 2 4356-8 #### [facility] CLIA [id number] [address] Ketones Ql (U) Negative Normal Negative [facility] Comment on above: Order Comment: Speci men Type: URINE SPECIMEN Ordering Facility: [facility] Address: [address] [place] [address] Performed By: #### 2 4356-8 #### [facility] CLIA [id number] [address] [place] Leukocyte esterase Test strip Ql (U) Negative Normal Negative [facility] Comment on above: Order Comment: Speci men Type: URINE SPECIMEN Ordering Facility: [facility] Address: [address] [place] [address] Performed By: #### 2 4356-8 #### [facility] CLIA [id number] [address] [place] [address] [place] Nitrite Ql (U) Negative Normal Negative [facility] Comment on above: Order Comment: Speci men Type: URINE SPECIMEN Ordering Facility: [facility] Address: [address] [place] [address] Performed By: #### 2 4356-8 #### [facility] CLIA [id number] [address] [place] pH (U) 7.0 [pH] Normal 5.0-8.0 [facility] Comment on above: Order Comment: Speci men Type: URINE SPECIMEN Ordering Facility: [facility] Address: [address] [place] [address] Performed By: #### 2 4356-8 #### [facility] CLIA [id number] [address] Protein (U) [Mass/Vol] Negative Normal Negative [facility] Comment on above: Order Comment: Speci men Type: URINE SPECIMEN Ordering Facility: [facility] Address: [address] [place] [address] Performed By: #### 2 4356-8 #### [facility] CLIA [id number] [address] [place] [address] [place] RBC LM.HPF (Urine sed) [#/Area] 0-3 /HPF Normal 0-3 /HPF [facility] Comment on above: Order Comment: Speci men Type: URINE SPECIMEN Ordering Facility: [facility] Address: [address] [place] [address] Performed By: #### 2 4356-8 #### [facility] CLIA [id number] [address] [place] Specific gravity (U) [Rel density] 1.015 Normal 1.005-1.030 [facility] Comment on above: Order Comment: Speci men Type: URINE SPECIMEN Ordering Facility: [facility] Address: [address] [place] [address] Performed By: #### 2 4356-8 #### [facility] CLIA [id number] [address] [place] Urobilinogen Ql (U) 0.2 EU/dL Normal 0.2-1.0 EU/dL [facility] Comment on above: Order Comment: Speci men Type: URINE SPECIMEN Ordering Facility: [facility] Address: [address] [place] [address] Performed By: #### 2 4356-8 #### [facility] CLIA [id number] [address] WBC LM.HPF (Urine sed) [#/Area] 0-5 /HPF Normal 0-5 /HPF [facility] Comment on above: Order Comment: Speci men Type: URINE SPECIMEN Ordering Facility: [facility] Address: [address] [place] [address] Performed By: #### 2 4356-8 #### [facility] CLIA [id number] [address] Basophil percentageOrdered B y: Adelfo Dhaliwal on 11-11-2023 Cholesterol [Mass/Vol] 224 mg/dL <200 [facility] Comment on above: <200 mg/dL Desirable 200-240 mg/dL Borderline >240 mg/dL High Risk Triglyceride [Mass/Vol] 194 mg/dL <199 [facility] Comment on above: The drugs N-Acetylcy steine and Metamizole may falsely depress this assay.Serum Triglycerides Reference Interval Normal <150 mg/dL Borderline high 150 - 199 mg/dL High 200 - 499 mg/dL Very High > or = 500 mg/dL Laboratory - Chemistry and C hemistry - challengeOrdered By: Adelfo Dhaliwal on 11-11-2023 Cholesterol in HDL [Mass/Vol] 50 mg/dL >40 [facility] Comment on above: The drugs N-Acetylcy steine and Metamizole may falsely depress this assay. Reference Range HDL <40 mg/dL Low HDL Cholesterol HDL >or= 60 mg/dL High HDL Cholesterol Cholesterol in LDL [Mass/Vol] 135 mg/dL 0-130 [facility] No Panel InformationOrdered By: Adelfo Dhaliwal on 11-11-2023 VLDL Cholesterol 39 mg/dL 5-40 [facility] FLUAV H1+H3+FLUBV RNA CINTHIA+pr obe Ql (Unsp spec)Ordered By: Adelfo Dhaliwal on 11-03-2023 Influenza Types A & B (PCR) Influenzae A [facility] Basophil percentageOrdered B y: Adelfo Dhaliwal on 10-21-2023 Chloride [Moles/Vol] 107 mmol/L 98-107 [facility] Glucose [Mass/Vol] 133 mg/dL 74-106 [facility] Comment on above: Fasting Glucose resu lt greater than or equal to 126 mg/dL suggests DIABETES MELLITUS per A.D.A. criteria. Hemoglobin (Bld) [Mass/Vol] 14.4 g/dL 12.0-15.0 [facility] Potassium [Moles/Vol] 4.0 mmol/L 3.5-5.1 [facility] Sodium [Moles/Vol] 140 mmol/L 136-145 [facility] WBC (Bld) [#/Vol] 8.4 10*3/uL 4.4-11.0 [facility] Bilirubin Test strip Ql (U)O rdered By: Adelfo Dhaliwal on 10-21-2023 Bilirubin Ql (U) Negative Negative [facility] Culture, urineOrdered By: Danielle Dhaliwal on 10-21-2023 Bacteria identified Cx Nom (U) Mixed Gram Pos & Gram Neg Org [facility] Determination of erythrocyte mean corpuscular volume (MCV)Ordered By: Adelfo Dhaliwal on 10-21-2023 MCV (RBC) [Entitic vol] 95.3 fL 81-99 [facility] Erythrocyte distribution wid th ratioOrdered By: Adelfo Dhaliwal on 10-21-2023 Erythrocyte distribution width (RBC) [Ratio] 12.6 % 11.6-14.6 [facility] Erythrocyte distribution wid th standard deviationOrdered By: Adelfo Dhaliwal on 10-21-2023 Erythrocyte distribution width (RBC) [Entitic vol] 43.8 fL 35.1-43.9 [facility] Hematocrit Auto (Bld) [Volum e fraction]Ordered By: Adelfo Dhaliwal on 10-21-2023 Hematocrit (Bld) [Volume fraction] 44.7 % 37-47 [facility] Ketones Test strip Ql (U)Ord ered By: Adelfo Dhaliwal on 10-21-2023 Ketones Ql (U) Negative Negative [facility] Laboratory - Chemistry and C hemistry - challengeOrdered By: Adelfo Dhaliwal on 10-21-2023 CO2 [Moles/Vol] 27.0 mmol/L 21.0-32.0 [facility] Urea nitrogen/Creatinine [Mass ratio] 22.0 mg/mg 10-20 [facility] Laboratory - Hematology and Cell countsOrdered By: Adelfo Dhaliwal on 10-21-2023 MCH (RBC) [Entitic mass] 30.7 pg 27.0-32.0 [facility] MCHC (RBC) [Mass/Vol] 32.2 g/dL 32-36 [facility] Platelet mean volume (Bld) [Entitic vol] 9.9 fL 6.2-12.0 [facility] Platelets (Bld) [#/Vol] 259 10*3/uL 150-450 [facility] Nitrite Test strip Ql (U)Ord ered By: Adelfo Dhaliwal on 10-21-2023 Nitrite Ql (U) Negative Negative [facility] No Panel InformationOrdered By: Adelfo Dhaliwal on 10-21-2023 Estimated GFR (MDRD) Amer 149 mL/min >60 [facility] Comment on above: GFR Calc Estimated GFR (MDRD) Non-Af Amer 124 mL/min >60 [facility] Comment on above: Non- GFR Calc Protein Test strip Ql (U)Ord ered By: Adelfo Dhaliwal on 10-21-2023 Protein Ql (U) Negative Negative [facility] RBC Auto (Bld) [#/Vol]Ordere d By: Adelfo Dhaliwal on 10-21-2023 RBC (Bld) [#/Vol] 4.69 10*6/uL 4.2-5.4 [facility] Serum or plasma calcium ivette urement (mass/volume)Ordered By: Adelfo Dhaliwal on 10-21-2023 Calcium [Mass/Vol] 9.7 mg/dL 8.5-10.1 [facility] Serum or plasma creatinine m easurement (mass/volume)Ordered By: Adelfo Dhaliwal on 10-21-2023 Creatinine [Mass/Vol] 0.50 mg/dL 0.55-1.02 [facility] Comment on above: The validity of the calculated GFR & GFRAA in patients over 70 years has not been determined. Clinical correlation is essential. Serum or plasma urea nitroge n measurement (mass/volume)Ordered By: Adelfo Dhaliwal on 10-21-2023 Urea nitrogen [Mass/Vol] 11 mg/dL 7-18 [facility] Thin prep Papanicolaou smear with manual screeningOrdered By: Adelfo Dhaliwal on 10-21-2023 Thin prep Papanicolaou smear with manual screening 6 5-15 [facility] Urine blood detectionOrdered By: Adelfo Dhaliwal on 10-21-2023 RBC Ql (U) Negative Negative [facility] Urine clarityOrdered By: Paul Dhaliwal on 10-21-2023 Clarity (U) Sl. Cloudy Clear [facility] Urine color determinationOrd ered By: Adeflo Dhaliwal on 10-21-2023 Color (U) Yellow Yellow [facility] Urine glucose detectionOrder ed By: Adelfo Dhaliwal on 10-21-2023 Glucose Ql (U) Normal mg/dl Normal [facility] Urine leukocyte esterase det ection by dipstickOrdered By: Adelfo Dhaliwal on 10-21-2023 Leukocyte esterase Test strip Ql (U) 25 /ul Negative [facility] Urine pHOrdered By: Adelfo ortiz on 10-21-2023 pH (U) 7.0 [pH] 5.0 - 8.0 [facility] Urine specific gravity measu rementOrdered By: Adelfo Dhaliwal on 10-21-2023 Specific gravity (U) [Rel density] 1.010 1.002-1.030 [facility] Urine urobilinogen measureme ntOrdered By: Adelfo Dhaliwal on 10-21-2023 Urobilinogen Ql (U) Normal mg/dl Normal [facility] Bilirubin Test strip Ql (U)O rdered By: Adelfo Dhaliwal on 07-15-2023 Bilirubin Ql (U) Negative Negative [facility] Culture, urineOrdered By: Danielle Dhaliwal on 07-15-2023 Bacteria identified Cx Nom (U) Culture exhibits no growth. [facility] Bacteria identified Cx Nom (U) Culture exhibits no growth. [facility] Ketones Test strip Ql (U)Ord ered By: Adelfo Dhaliwal on 07-15-2023 Ketones Ql (U) Negative Negative [facility] Nitrite Test strip Ql (U)Ord ered By: Adelfo Dhaliwal on 07-15-2023 Nitrite Ql (U) Negative Negative [facility] Protein Test strip Ql (U)Ord ered By: Adelfo Dhaliwal on 07-15-2023 Protein Ql (U) 30 mg/dl Negative [facility] Urine blood detectionOrdered By: Adelfo Dhaliwal on 07-15-2023 RBC Ql (U) 50 /ul Negative [facility] Urine clarityOrdered By: Paul Dhaliwal on 07-15-2023 Clarity (U) Sl. Cloudy Clear [facility] Urine color determinationOrd ered By: Adelfo Dhaliwal on 07-15-2023 Color (U) Yellow Yellow [facility] Urine glucose detectionOrder ed By: Adelfo Dhaliwal on 07-15-2023 Glucose Ql (U) Normal mg/dl Normal [facility] Urine leukocyte esterase det ection by dipstickOrdered By: Adelfo Dhaliwal on 07-15-2023 Leukocyte esterase Test strip Ql (U) Negative Negative [facility] Urine pHOrdered By: Adelfo ortiz on 07-15-2023 pH (U) 5.0 [pH] 5.0 - 8.0 [facility] Urine specific gravity measu rementOrdered By: Adelfo Dhaliwal on 07-15-2023 Specific gravity (U) [Rel density] 1.025 1.002-1.030 [facility] Urobilinogen Auto test strip Ql (U)Ordered By: Adelfo Dhaliwal on 07-15-2023 Urobilinogen Ql (U) Normal mg/dl Normal [facility] Basophil percentageOrdered B y: Adelfo Dhaliwal on 07-12-2023 Cholesterol [Mass/Vol] 124 mg/dL <200 [facility] Comment on above: <200 mg/dL Desirable 200-240 mg/dL Borderline >240 mg/dL High Risk Triglyceride [Mass/Vol] 156 mg/dL <199 [facility] Comment on above: The drugs N-Acetylcy steine and Metamizole may falsely depress this assay.Serum Triglycerides Reference Interval Normal <150 mg/dL Borderline high 150 - 199 mg/dL High 200 - 499 mg/dL Very High > or = 500 mg/dL Laboratory - Chemistry and C hemistry - challengeOrdered By: Adelfo Dhaliwal on 07-12-2023 T4 [Mass/Vol] 10.3 ug/dL 4.8-13.9 [facility] No Panel InformationOrdered By: Adelfo Dhaliwal on 07-12-2023 Thyroid Stimulating Hormone (TSH) 0.98 uIU/mL 0.358-3.74 [facility] Total Triiodothyronine 0.84 ng/mL 0.6-1.81 [facility] Vitamin D 25-Hydroxy 61.9 ng/mL [facility] Comment on above: Vitamin D 25(OH) Sta tus Range Deficiency <20 ng/mL (50nmol/L) Insufficiency 20 - 30 ng/mL (50 - 75 nmol/L) Sufficiency 30 - 100 ng/mL (75 - 250 nmol/L) Toxicity >100 ng/mL (>250 nmol/L) Serum or plasma cholesterol in HDL measurement (mass/volume)Ordered By: Adelfo Dhaliwal on 07-12-2023 Cholesterol in HDL [Mass/Vol] 46 mg/dL >40 [facility] Comment on above: The drugs N-Acetylcy steine and Metamizole may falsely depress this assay. Reference Range HDL <40 mg/dL Low HDL Cholesterol HDL >or= 60 mg/dL High HDL Cholesterol Serum or plasma cholesterol in VLDL measurement (mass/volume)Ordered By: Adelfo Dhaliwal on 07-12-2023 Cholesterol in VLDL [Mass/Vol] 31 mg/dL 5-40 [facility] Serum or plasma low density lipoprotein (LDL) cholesterol measurement (mass/volume)Ordered By: Adelfo Dhaliwal on 07-12-2023 Cholesterol in LDL [Mass/Vol] 47 mg/dL 0-130 [facility] Basophil percentageOrdered B y: Adelfo Dhaliwal on 06-10-2023 Chloride [Moles/Vol] 106 mmol/L 98-107 [facility] Glucose [Mass/Vol] 209 mg/dL 74-106 [facility] Comment on above: Glucose result great er than or equal to 200 mg/dLsuggests DIABETES MELLITUS per A.D.A. criteria. Potassium [Moles/Vol] 3.9 mmol/L 3.5-5.1 [facility] Sodium [Moles/Vol] 135 mmol/L 136-145 [facility] WBC (Bld) [#/Vol] 11.1 10*3/uL 4.4-11.0 [facility] Blood erythrocytes count (nu mber/volume)Ordered By: Adelfo Dhaliwal on 06-10-2023 RBC (Bld) [#/Vol] 4.52 10*6/uL 4.2-5.4 [facility] Blood hemoglobin measurement (mass/volume)Ordered By: Adelfo Dhaliwal on 06-10-2023 Hemoglobin (Bld) [Mass/Vol] 13.8 g/dL 12.0-15.0 [facility] Blood platelet mean volumeOr dered By: Adelfo Dhaliwal on 06-10-2023 Platelet mean volume (Bld) [Entitic vol] 10.1 fL 6.2-12.0 [facility] Determination of erythrocyte mean corpuscular volume (MCV)Ordered By: Adelfo Dhaliwal on 06-10-2023 MCV (RBC) [Entitic vol] 96.7 fL 81-99 [facility] Hematocrit Auto (Bld) [Volum e fraction]Ordered By: Adelfo Dhaliwal on 06-10-2023 Hematocrit (Bld) [Volume fraction] 43.7 % 37-47 [facility] Laboratory - Chemistry and C hemistry - challengeOrdered By: Adelfo Dhaliwal on 06-10-2023 CO2 [Moles/Vol] 27.0 mmol/L 21.0-32.0 [facility] Urea nitrogen/Creatinine [Mass ratio] 28.3 mg/mg 10-20 [facility] Laboratory - Hematology and Cell countsOrdered By: Adelfo Dhaliwal on 06-10-2023 Erythrocyte distribution width (RBC) [Entitic vol] 44.8 fL 35.1-43.9 [facility] Erythrocyte distribution width (RBC) [Ratio] 12.5 % 11.6-14.6 [facility] MCH (RBC) [Entitic mass] 30.5 pg 27.0-32.0 [facility] MCHC Auto (RBC) [Mass/Vol]Or dered By: Adelfo Dhaliwal on 06-10-2023 MCHC (RBC) [Mass/Vol] 31.6 g/dL 32-36 [facility] No Panel InformationOrdered By: Adelfo Dhaliwal on 06-10-2023 Estimated GFR (MDRD) Amer 152 mL/min >60 [facility] Comment on above: GFR Calc Estimated GFR (MDRD) Non-Af Amer 125 mL/min >60 [facility] Comment on above: Non- GFR Calc Platelets bldOrdered By: Daniellevandana sha Madhuri on 06-10-2023 Platelets (Bld) [#/Vol] 262 10*3/uL 150-450 [facility] Serum or plasma calcium ivette urement (mass/volume)Ordered By: Adelfo Dhaliwal on 06-10-2023 Calcium [Mass/Vol] 9.3 mg/dL 8.5-10.1 [facility] Serum or plasma creatinine m easurement (mass/volume)Ordered By: Adelfo Dhaliwal on 06-10-2023 Creatinine [Mass/Vol] 0.50 mg/dL 0.55-1.02 [facility] Comment on above: The validity of the calculated GFR & GFRAA in patients over 70 years has not been determined. Clinical correlation is essential. Serum or plasma urea nitroge n measurement (mass/volume)Ordered By: Adelfo Dhaliwal on 06-10-2023 Urea nitrogen [Mass/Vol] 14 mg/dL 7-18 [facility] Thin prep Papanicolaou smear with manual screeningOrdered By: Adelfo Dhaliwal on 06-10-2023 Thin prep Papanicolaou smear with manual screening 2 5-15 [facility] Whole blood hemoglobin A1c/t otal hemoglobin ratio (mass fraction)Ordered By: Adelfo Dhaliwal on 06-10-2023 HbA1c (Bld) [Mass fraction] 8.0 % 3.8-5.6 [facility] Comment on above: Normal < 5.7 % Predi abetic 5.7 - 6.4 % Diabetic >or= 6.5 % Please note range changes. Office Visiton 02-25-2023 Follow-up visit [id number] Raudel Ahumada 1935 F Date Provider Department Center 02/25/2023 [id number] HARRIS MG SM WAD None Family History Problem Relation Age of Onset Diabetes Mother Coronary artery disease Brother Stroke Mother Cancer Brother Heart disease Father Diabetes Brother Heart disease Mother Stroke Brother Heart disease Brother Family Status - Relation Status Age at Mother Brother Father Level of Service:68001 IN OFFICE/OUTPATIENT NEW LOW MDM 30-44 MINUTES Reason for Visit and Comments: Back Pain [12] - Left lower leg Normal [facility] Progress Noteon 02-25-2023 Progress Note [facility] [address] [place] [address] Dept: [phone] Dept Chief Complaint Patient presents with Back [...] surgery: no Occupation: Retired- currently living at [facility], 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 No significant change in her back pain for 3 years. 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 We recommended continued maintenance of her strength level and continued formal physical therapy. We will go ahead and write an order for her to get formal physical therapy at [facility] for her chronic weakness. Follow-up with neurology for any potential care for her left hemiparesis. Follow up if symptoms worsen or fail to improve, for call our office with any questions at [phone]. Patricia Harris MD 02/25/2023 10:03 AM Please note that portions of this note may have been completed with voice recognition software. (more content not included)... Normal [facility] Basophil percentageOrdered B y: Adelfo Dhaliwal on 02-14-2023 Chloride [Moles/Vol] 108 mmol/L 98-107 [facility] Glucose [Mass/Vol] 128 mg/dL 74-106 [facility] Comment on above: Fasting Glucose resu lt greater than or equal to 126 mg/dL suggests DIABETES MELLITUS per A.D.A. criteria. Potassium [Moles/Vol] 4.0 mmol/L 3.5-5.1 [facility] Sodium [Moles/Vol] 143 mmol/L 136-145 [facility] Laboratory - Chemistry and C hemistry - challengeOrdered By: Adelfo Dhaliwal on 02-14-2023 CO2 [Moles/Vol] 29.0 mmol/L 21.0-32.0 [facility] Urea nitrogen/Creatinine [Mass ratio] 32.2 mg/mg 10-20 [facility] No Panel InformationOrdered By: Adelfo Dhaliwal on 02-14-2023 Estimated GFR (MDRD) Amer 176 mL/min >60 [facility] Comment on above: GFR Calc Estimated GFR (MDRD) Non-Af Amer 146 mL/min >60 [facility] Comment on above: Non- GFR Calc Serum or plasma calcium ivette urement (mass/volume)Ordered By: Adelfo Dhaliwal on 02-14-2023 Calcium [Mass/Vol] 9.5 mg/dL 8.5-10.1 [facility] Serum or plasma creatinine m easurement (mass/volume)Ordered By: Adelfo Dhaliwal on 02-14-2023 Creatinine [Mass/Vol] 0.44 mg/dL 0.55-1.02 [facility] Comment on above: The validity of the calculated GFR & GFRAA in patients over 70 years has not been determined. Clinical correlation is essential. Serum or plasma urea nitroge n measurement (mass/volume)Ordered By: Adelfo Dhaliwal on 02-14-2023 Urea nitrogen [Mass/Vol] 14 mg/dL 7-18 [facility] Serum or plasma uric acid me asurement (mass/volume)Ordered By: Adelfo Dhaliwal on 02-14-2023 Urate [Mass/Vol] 4.9 mg/dL 2.6-6.0 [facility] Comment on above: The drugs N-Acetylcy steine and Metamizole may falsely depress this assay. Thin prep Papanicolaou smear with manual screeningOrdered By: Adelfo Dhaliwal on 02-14-2023 Thin prep Papanicolaou smear with manual screening 6 5-15 [facility] Basophil percentageOrdered B y: Adelfo Dhaliwal on 01-16-2023 Cholesterol [Mass/Vol] 121 mg/dL <200 [facility] Comment on above: <200 mg/dL Desirable 200-240 mg/dL Borderline >240 mg/dL High Risk Triglyceride [Mass/Vol] 124 mg/dL <199 [facility] Comment on above: The drugs N-Acetylcy steine and Metamizole may falsely depress this assay.Serum Triglycerides Reference Interval Normal <150 mg/dL Borderline high 150 - 199 mg/dL High 200 - 499 mg/dL Very High > or = 500 mg/dL Laboratory - Chemistry and C hemistry - challengeOrdered By: Adelfo Dhaliwal on 01-16-2023 Magnesium [Mass/Vol] 2.1 mg/dL 1.6-2.6 [facility] Comment on above: Slight Hemolysis, Re sult may be falsely increased. No Panel InformationOrdered By: Adelfo Dhaliwal on 01-16-2023 Thyroid Stimulating Hormone (TSH) 1.03 uIU/mL 0.358-3.74 [facility] Vitamin D 25-Hydroxy 80.6 ng/mL [facility] Comment on above: Vitamin D 25(OH) Sta tus Range Deficiency <20 ng/mL (50nmol/L) Insufficiency 20 - 30 ng/mL (50 - 75 nmol/L) Sufficiency 30 - 100 ng/mL (75 - 250 nmol/L) Toxicity >100 ng/mL (>250 nmol/L) Serum or plasma cholesterol in HDL measurement (mass/volume)Ordered By: Adelfo Dhaliwal on 01-16-2023 Cholesterol in HDL [Mass/Vol] 46 mg/dL >40 [facility] Comment on above: The drugs N-Acetylcy steine and Metamizole may falsely depress this assay. Reference Range HDL <40 mg/dL Low HDL Cholesterol HDL >or= 60 mg/dL High HDL Cholesterol Serum or plasma cholesterol in VLDL measurement (mass/volume)Ordered By: Adelfo Dhaliwal on 01-16-2023 Cholesterol in VLDL [Mass/Vol] 25 mg/dL 5-40 [facility] Serum or plasma low density lipoprotein (LDL) cholesterol measurement (mass/volume)Ordered By: Adelfo Dhaliwal on 01-16-2023 Cholesterol in LDL [Mass/Vol] 50 mg/dL 0-130 [facility] Whole blood hemoglobin A1c/t otal hemoglobin ratio (mass fraction)Ordered By: Adelfo Dhaliwal on 01-09-2023 HbA1c (Bld) [Mass fraction] 8.4 % 3.8-5.6 [facility] Comment on above: Normal < 5.7 % Predi abetic 5.7 - 6.4 % Diabetic >or= 6.5 % Please note range changes. Telephone Encounteron 2022 [employer] Aut[employer] Interface Message Text Patient is calling to states she had dentures that Dr Ayala took to have them to realign. Patient states the bottom denture was never returned to her. Patient states the dentures were not made in the clinic. They were made outside of [facility]. When she seen Dr Ayala in June 2022 he performed another mold and she is waiting to pick them up. Pls call pt @ [phone] Thank you Normal [facility] [employer] Interface Message Text Spoke with patient regarding her dentures. Explained to her that Dr. Ayala does not make dentures. Provided the contact information for [facility] and explained that if these dentures have been made by a [facility] [place] provider, this is the department that will have them, otherwise she will need to see an outside dentist to have dentures made. Patient understood. Titus Ramirez DMD footwear factory worker, PGY-3 Team Pager: [phone] [facility] [employer] Aut[employer] Interface Message Text The patient called [...] about this and can be reached at [phone] Thank You! Normal [facility] Laboratory - Chemistry and C hemistry - challengeOrdered By: Adelfo Dhaliwal on 10-30-2022 Magnesium [Mass/Vol] 1.8 mg/dL 1.6-2.6 [facility] Whole blood hemoglobin A1c/t otal hemoglobin ratio (mass fraction)Ordered By: Adelfo Dhaliwal on 10-30-2022 HbA1c (Bld) [Mass fraction] 6.6 % 3.8-5.6 [facility] Comment on above: Normal < 5.7 % Predi abetic 5.7 - 6.4 % Diabetic >or= 6.5 % Please note range changes. Basophil percentageOrdered B y: Adelfo Dhaliwal on 10-01-2022 Chloride [Moles/Vol] 107 mmol/L 98-107 [facility] Glucose [Mass/Vol] 125 mg/dL 74-106 [facility] Comment on above: Fasting Glucose resu lt from 100 to 125 mg/dL suggests IMPAIRED HOMEOSTASIS per A.D.A. criteria. Potassium [Moles/Vol] 4.3 mmol/L 3.5-5.1 [facility] Sodium [Moles/Vol] 140 mmol/L 136-145 [facility] Laboratory - Chemistry and C hemistry - challengeOrdered By: Adelfo Dhailwal on 10-01-2022 CO2 [Moles/Vol] 24.0 mmol/L 21.0-32.0 [facility] Urea nitrogen/Creatinine [Mass ratio] 23.6 mg/mg 10- [facility] No Panel InformationOrdered By: Adelfo Dhaliwal on 10-01-2022 Estimated GFR (MDRD) Amer 134 mL/min >60 [facility] Comment on above: GFR Calc Estimated GFR (MDRD) Non-Af Amer 111 mL/min >60 [facility] Comment on above: Non- GFR Calc Serum or plasma calcium ivette urement (mass/volume)Ordered By: Adelfo Dhaliwal on 10-01-2022 Calcium [Mass/Vol] 9.8 mg/dL 8.5-10.1 [facility] Serum or plasma creatinine m easurement (mass/volume)Ordered By: Adelfo Dhaliwal on 10-01-2022 Creatinine [Mass/Vol] 0.55 mg/dL 0.55-1.02 [facility] Comment on above: The validity of the calculated GFR & GFRAA in patients over 70 years has not been determined. Clinical correlation is essential. Serum or plasma urea nitroge n measurement (mass/volume)Ordered By: Adelfo Dhaliwal on 10-01-2022 Urea nitrogen [Mass/Vol] 13 mg/dL 7-18 [facility] Thin prep Papanicolaou smear with manual screeningOrdered By: Adelfo Dhaliwal on 10-01-2022 Thin prep Papanicolaou smear with manual screening 9 5-15 [facility] Patient Instructionson 06-19 [employer] Authentication Interface Message Text Dental extraction Instructions [...] done to speak with an oral surgeon. [facility] [phone]. HELPING THE HEALING PROCESS AND STOPPING THE [...] c (more content not included)... Normal [facility] Progress Noteson 06-19-2022 [employer] Authentication Interface Message Text Normal [facility] Telephone Encounteron 2021 [employer] Authentication Interface Message Text Keerthi from [facility] called to confirm the Pa was approved. Approval noted 05/28. Please call [phone] to schedule the patient. Thank you! Normal [facility] Telephone Encounteron 2021 [employer] Authentication Interface Message Text Patient is calling again asking what's the update of her PA, and when would be the surgery date/time. Please reach out to pt. Thank you! Normal [facility] Telephone Encounteron 2021 [employer] Authentication Interface Message Text Steffi Hale dairy machine operator farmworker from [facility] called regarding the patient. Steffi states the patient has decided to use our services for Oral surgery. Patient had a consultation on 04/17, and Steffi would like to go forward with the process. Once the insurance approves the surgery, please call [facility] and speak to the [address] [place] [address] nurse to schedule at [phone]. Thank you! Normal [facility] Progress Noteson 04-18-2022 [employer] Authentication Interface Message Text Teaching Physician Note: I saw and evaluated the patient. I personally obtained the otero and critical portions of the history and physical exam. I reviewed the resident's documentation and discussed the patient with the resident. I agree with the resident's medical decision making as documented in the resident's note. López Ayala DDS Normal [facility] Patient Instructionson 04-17 [employer] Aut[employer] Interface Message Text Dental extraction Instructions [...] done to speak with an oral surgeon. [facility] [phone]. HELPING THE HEALING PROCESS AND STOPPING THE [...] c (more content not included)... Normal [facility] Progress Noteson 04-17-2022 [employer] Authentication Interface Message Text Tooth #3 Normal [facility] [employer] Authentication Interface Message Text [facility] PATIENT VISIT CHIEF COMPLAINT: Toothache HISTORY OF PRESENT ILLNESS: 86 yo F with pmhx significant for T2DM, obesity, COPD, and asthma presents to the [facility] clinic for consult for extraction of remaining [...] that the future appointment was not in [place] where she is located. Informed patient about today's appointment was a consultation and all procedures are completed here on main campus, [address] [place]. Discussed sedation. Pt wanted to be asleep, [...] with us or a local surgeon near [place]. Will also require PANO for patient as there was no pano sent from referring provider prior to the time the appointment. Jules Moore DMD Normal [facility] Basophil percentageon 2021 Bilirubin [Mass/Vol] 0.80 mg/dL 0.20-1.00 [facility] Work Phone: Comment on above: For patients on eltr ombopag therapy, use of Dimension [place] TBIL is not recommended. Chloride [Moles/Vol] 107 mmol/L 98-107 [facility] Work Phone: Cholesterol [Mass/Vol] 150 mg/dL <200 [facility] Work Phone: Comment on above: <200 mg/dL Desirable 200-240 mg/dL Borderline >240 mg/dL High Risk Glucose [Mass/Vol] 135 mg/dL 74-106 [facility] Work Phone: Comment on above: Fasting Glucose resu lt greater than or equal to 126 mg/dL suggests DIABETES MELLITUS per A.D.A. criteria. Potassium [Moles/Vol] 4.1 mmol/L 3.5-5.1 [facility] Work Phone: Comment on above: Slight Hemolysis, Re sult may be falsely increased. Protein [Mass/Vol] 6.6 g/dL 6.4-8.2 [facility] Work Phone: Sodium [Moles/Vol] 140 mmol/L 136-145 [facility] Work Phone: Triglyceride [Mass/Vol] 105 mg/dL [facility] Work Phone: Comment on above: The drugs N-Acetylcy steine and Metamizole may falsely depress this assay.Serum Triglycerides Reference Interval Normal <150 mg/dL Borderline high 150 - 199 mg/dL High 200 - 499 mg/dL Very High > or = 500 mg/dL WBC (Bld) [#/Vol] 7.9 10*3/uL 4.4-11.0 [facility] Work Phone: Blood erythrocytes count (nu mber/volume)on 12-21-2021 RBC (Bld) [#/Vol] 4.28 10*6/uL 4.2-5.4 [facility] Work Phone: Blood hemoglobin measurement (mass/volume)on 12-21-2021 Hemoglobin (Bld) [Mass/Vol] 13.4 g/dL 12.0-15.0 [facility] Work Phone: Blood platelet mean volumeon 12-21-2021 Platelet mean volume (Bld) [Entitic vol] 9.8 fL 6.2-12.0 [facility] Work Phone: Determination of erythrocyte mean corpuscular volume (MCV)on 12-21-2021 MCV (RBC) [Entitic vol] 96.5 fL 81-99 [facility] Work Phone: Hematocrit Auto (Bld) [Volum e fraction]on 12-21-2021 Hematocrit (Bld) [Volume fraction] 41.3 % 37-47 [facility] Work Phone: Laboratory - Chemistry and C hemistry - challengeon 12-21-2021 ALP [Catalytic activity/Vol] 120 U/L 45-117 [facility] Work Phone: ALT [Catalytic activity/Vol] 23 U/L 13-56 [facility] Work Phone: CO2 [Moles/Vol] 29.0 mmol/L 21.0-32.0 [facility] Work Phone: Globulin (S) [Mass/Vol] 3.6 g/dL 2.2-4.2 [facility] Work Phone: Urea nitrogen/Creatinine [Mass ratio] 31.4 mg/mg 10-20 [facility] Work Phone: Laboratory - Hematology and Cell countson 12-21-2021 Erythrocyte distribution width (RBC) [Entitic vol] 44.5 fL 35.1-43.9 [facility] Work Phone: Erythrocyte distribution width (RBC) [Ratio] 12.6 % 11.6-14.6 [facility] Work Phone: MCH (RBC) [Entitic mass] 31.3 pg 27.0-32.0 [facility] Work Phone: MCHC Auto (RBC) [Mass/Vol]on 12-21-2021 MCHC (RBC) [Mass/Vol] 32.4 g/dL 32-36 [facility] Work Phone: No Panel Informationon 12-21 Estimated GFR (MDRD) Amer 128 mL/min >60 [facility] Work Phone: Comment on above: GFR Calc Estimated GFR (MDRD) Non-Af Amer 106 mL/min >60 [facility] Work Phone: Comment on above: Non- GFR Calc Thyroid Stimulating Hormone (TSH) 0.70 uIU/mL 0.358-3.74 [facility] Work Phone: Vitamin D 25-Hydroxy 51.9 ng/mL [facility] Work Phone: Comment on above: Vitamin D 25(OH) Sta tus Range Deficiency <20 ng/mL (50nmol/L) Insufficiency 20 - 30 ng/mL (50 - 75 nmol/L) Sufficiency 30 - 100 ng/mL (75 - 250 nmol/L) Toxicity >100 ng/mL (>250 nmol/L) Platelets bldon 12-21-2021 Platelets (Bld) [#/Vol] 262 10*3/uL 150-450 [facility] Work Phone: Serum or plasma albumin ivette urement (mass/volume)on 12-21-2021 Albumin [Mass/Vol] 3.0 g/dL 3.2-5.0 [facility] Work Phone: Serum or plasma albumin/glob ulin mass ratioon 12-21-2021 Albumin/Globulin [Mass ratio] 0.8 {ratio} 0.9-2.4 [facility] Work Phone: Serum or plasma calcium ivette urement (mass/volume)on 12-21-2021 Calcium [Mass/Vol] 9.5 mg/dL 8.5-10.1 [facility] Work Phone: Serum or plasma cholesterol in HDL measurement (mass/volume)on 12-21-2021 Cholesterol in HDL [Mass/Vol] 57 mg/dL [facility] Work Phone: Comment on above: The drugs N-Acetylcy steine and Metamizole may falsely depress this assay. Reference Range HDL <40 mg/dL Low HDL Cholesterol HDL >or= 60 mg/dL High HDL Cholesterol Serum or plasma cholesterol in VLDL measurement (mass/volume)on 12-21-2021 Cholesterol in VLDL [Mass/Vol] 21 mg/dL 5-40 [facility] Work Phone: Serum or plasma creatinine m easurement (mass/volume)on 12-21-2021 Creatinine [Mass/Vol] 0.57 mg/dL 0.55-1.02 [facility] Work Phone: Comment on above: The validity of the calculated GFR & GFRAA in patients over 70 years has not been determined. Clinical correlation is essential. Serum or plasma low density lipoprotein (LDL) cholesterol measurement (mass/volume)on 12-21-2021 Cholesterol in LDL [Mass/Vol] 72 mg/dL 0-130 [facility] Work Phone: Serum or plasma urea nitroge n measurement (mass/volume)on 12-21-2021 Urea nitrogen [Mass/Vol] 18 mg/dL 7-18 [facility] Work Phone: Thin prep Papanicolaou smear with manual screeningon 12-21-2021 Thin prep Papanicolaou smear with manual screening 15 U/L 15-37 [facility] Work Phone: Comment on above: Slight Hemolysis, Re sult may be falsely increased. Thin prep Papanicolaou smear with manual screening 4 5-15 [facility] Work Phone: Whole blood hemoglobin A1c/t otal hemoglobin ratio (mass fraction)on 12-21-2021 HbA1c (Bld) [Mass fraction] 6.4 % 3.8-5.6 [facility] Work Phone: Comment on above: Normal < 5.7 % Predi abetic 5.7 - 6.4 % Diabetic >or= 6.5 % Please note range changes. CR Spine Lumbosacral 4+ View son 06-15-2020 CR Spine Lumbosacral 4+ Views Patient Name: RAUDEL AHUMADA Diagnostic Radiology Exam Date/Time 06/15/2020 14:37:53 EST Exam CR Spine Lumbosacral 4+ Views Ordering Physician MD DILEEP, MAIDA Accession Number [id number] CPT4 Codes 83776 () Reason For Exam lumbar back pain [...] Transcribed Date and Time: 06/15/2020 3:16 Normal [facility] XR LUMBAR SPINE (MIN 4 VIEWS )on 06-15-2020 Patient Name: RAUDEL AHUMADA ---Diagnostic Radiology--- Exam Date/Time 06/15/2020 14:37:53 EST Exam CR Spine Lumbosacral 4+ Views Ordering Physician MD DOSHI DIANA Accession Number [id number] CPT4 Codes 67223 () Reason For Exam lumbar back pain [...] ALFRED Transcribed Date and Time: 06/15/2020 3:16 [facility] [place], [facility] Incoming Radiology Results From [employer] - 06/15/2020 3:16 PM EST Patient Name: RAUDEL AHUMADA ---Diagnostic Radiology--- Exam Date/Time 06/15/2020 14:37:53 EST Exam CR Spine Lumbosacral 4+ Views Ordering Physician MD DOSHI DIANA Accession Number [id number] CPT4 Codes 50623 () Reason For Exam lumbar back pain [...] anterolisthesis at L4-L5. Report Dictated on Workstation: [employer] --- Final --- Dictating Physician: DO LLOYD ALFRED Signed Date and Time: 06/15/2020 3:14 pm Signed by: DO LLOYD ALFRED Transcribed Date and Time: 06/15/2020 3:16 [place] CBC Auto Differentialon 10-0 Absolute Baso # 0.1 10*3/uL 0 - 0.2 10*3/uL [place] Absolute Neut # 4.8 10*3/uL 1.8 - 7 10*3/uL [place] Basophils/100 WBC (Bld) 0.9 % 0 - 2 % [place] Eosinophils (Bld) [#/Vol] 0.2 10*3/uL 0 - 0.5 10*3/uL [place] Eosinophils/100 WBC (Bld) 2.5 % 1 - 6 % [place] Erythrocyte distribution width (RBC) [Ratio] 12.9 % 11.5 - 14.5 % [place] Granulocytes/100 WBC (Bld) 52.8 % 40 - 80 % [place] Hematocrit (Bld) [Volume fraction] 46.8 % 35 - 47 % [place] Hemoglobin (Bld) [Mass/Vol] 16.2 g/dL High 11.7 - 16 g/dL [place] Interpretation and review of laboratory results Abnormal [place] Lymphocytes (Bld) [#/Vol] 3.4 10*3/uL 1 - 4.3 10*3/uL [place] Lymphocytes/100 WBC (Bld) 36.9 % 20 - 40 % [place] MCH (RBC) [Entitic mass] 31.9 pg 26 - 34 pg [place] MCHC (RBC) [Mass/Vol] 34.7 % 32 - 36 % [place] MCV (RBC) [Entitic vol] 91.8 fL 79 - 98 fL [place], [place] Monocytes (Bld) [#/Vol] 0.6 10*3/uL 0 - 0.8 10*3/uL [place] Monocytes/100 WBC (Bld) 6.9 % 2 - 10 % [place] Platelet mean volume (Bld) [Entitic vol] 7.7 fL 7.4 - 10.4 fL [place] Platelets (Bld) [#/Vol] 298 10*3/uL 140 - 440 10*3/uL [place] RBC (Bld) [#/Vol] 5.10 10*6/uL 3.8 - 5.2 10*6/uL [place] WBC (Bld) [#/Vol] 9.1 10*3/uL 3.6 - 10.7 10*3/uL [place] Test Performed by [facility], [address] , [place], [place] [id number] [place] [address] Comp Metabolic Panelon 05-12 ALT [Catalytic activity/Vol] 17 U/L Normal 0-34 [facility] Comment on above: Result Comment: The ALT test is performed by an updated assay method. Please note that the reference intervals have been changed and are now sex specific. Performed By: #### L IPD2, HEMDF, TSH5, CMP3, HA1C2 #### [facility] [address] [place] [address] Calcium [Mass/Vol] 10.5 mg/dL High 8.4-10.4 [facility] Comment on above: Performed By: #### L IPD2, HEMDF, TSH5, CMP3, HA1C2 #### [facility] [address] [place] [address] ALP [Catalytic activity/Vol] 104 U/L Normal 38-126 [facility] Comment on above: Performed By: #### L IPD2, HEMDF, TSH5, CMP3, HA1C2 #### [facility] [address] [place] [address] Anion gap [Moles/Vol] 9 Normal [facility] Comment on above: Performed By: #### L IPD2, HEMDF, TSH5, CMP3, HA1C2 #### [facility] [address] [place] [address] AST [Catalytic activity/Vol] 20 U/L Normal 15-46 [facility] Comment on above: Performed By: #### L IPD2, HEMDF, TSH5, CMP3, HA1C2 #### [facility] [address] [place] [address] Bilirubin [Mass/Vol] 1.0 mg/dL Normal 0.2-1.3 [facility] Comment on above: Performed By: #### L IPD2, HEMDF, TSH5, CMP3, HA1C2 #### [facility] [address] [place] [address] CO2 [Moles/Vol] 25 mmol/L Normal 22-30 [facility] Comment on above: Performed By: #### L IPD2, HEMDF, TSH5, CMP3, HA1C2 #### [facility] [address] [place] [address] Creatinine [Mass/Vol] 0.59 mg/dL Normal 0.52-1.25 [facility] Comment on above: Performed By: #### L IPD2, HEMDF, TSH5, CMP3, HA1C2 #### [facility] [address] [place] [address] GFR/1.73 sq M predicted among blacks MDRD (S/P/Bld) [Vol rate/Area] mL/min/{1.73_m2} Normal >60 [facility] Comment on above: Performed By: #### L IPD2, HEMDF, TSH5, CMP3, HA1C2 #### [facility] [address] [place] [address] GFR/1.73 sq M predicted among non-blacks MDRD (S/P/Bld) [Vol rate/Area] 83.9 mL/min/{1.73_m2} Normal >60 [facility] Comment on above: Result Comment: KDIG [...] L IPD2, HEMDF, TSH5, CMP3, HA1C2 #### [facility] [address] [place] [address] Glucose [Mass/Vol] 146 mg/dL High 70-100 [facility] Comment on above: Performed By: #### L IPD2, HEMDF, TSH5, CMP3, HA1C2 #### [facility] [address] [place] [address] Protein [Mass/Vol] 7.1 g/dL Normal 6.3-8.2 [facility] Comment on above: Performed By: #### L IPD2, HEMDF, TSH5, CMP3, HA1C2 #### [facility] [address] [place] [address] Urea nitrogen [Mass/Vol] 20 mg/dL Normal 7-20 [facility] Comment on above: Performed By: #### L IPD2, HEMDF, TSH5, CMP3, HA1C2 #### [facility] [address] [place] [address] Chloride [Moles/Vol] 105 mmol/L Normal 98-107 [facility] Comment on above: Performed By: #### L IPD2, HEMDF, TSH5, CMP3, HA1C2 #### [facility] [address] [place] [address] Potassium [Moles/Vol] 4.1 mmol/L Normal 3.5-5.1 [facility] Comment on above: Performed By: #### L IPD2, HEMDF, TSH5, CMP3, HA1C2 #### [facility] [address] [place] [address] Sodium [Moles/Vol] 139 mmol/L Normal 135-145 [facility] Comment on above: Performed By: #### L IPD2, HEMDF, TSH5, CMP3, HA1C2 #### [facility] [address] [place] [address] Albumin [Mass/Vol] 4.4 g/dL Normal 3.5-5.0 [facility] Comment on above: Performed By: #### L IPD2, HEMDF, TSH5, CMP3, HA1C2 #### [facility] [address] [place] [address] Comprehensive Metabolic Pane denny 05-12-2020 Albumin [Mass/Vol] 4.4 g/dL 3.5 - 5 g/dL [place] ALP [Catalytic activity/Vol] 104 U/L 38 - 126 U/L [place] ALT [Catalytic activity/Vol] 17 U/L 0 - 34 U/L [place] Comment on above: The ALT test is perf ormed by an updated assay method. Please note that the reference intervals have been changed and are now sex specific. Anion gap [Moles/Vol] 9 mmol/L [place] AST [Catalytic activity/Vol] 20 U/L 15 - 46 U/L [place] Bilirubin Ql (U) 1.0 mg/dL 0.2 - 1.3 mg/dL [place] Calcium [Mass/Vol] 10.5 mg/dL High 8.4 - 10. 4 mg/dL [place] Chloride [Moles/Vol] 105 mmol/L 98 - 10 7 mmol/L [place] CO2 [Moles/Vol] 25 mmol/L 22 - 30 mmol/L [place] Creatinine [Mass/Vol] 0.59 mg/dL 0.52 - 1.25 mg/dL [place] EGFR IF NonAfrican Dominican 83.9 mL/min >60 [place] Comment on above: KDIGO guidelines pro [...] MDRD (S/P/Bld) [Vol rate/Area] mL/min/{1.73_m2} >60 mL/min [place] Glucose [Mass/Vol] 146 mg/dL High 70 - 100 mg/dL [place] Potassium [Moles/Vol] 4.1 mmol/L 3.5 - 5.1 mmol/L [place] Protein [Mass/Vol] 7.1 g/dL 6.3 - 8.2 g/dL [place] Sodium [Moles/Vol] 139 mmol/L 135 - 145 mmol/L [place] Urea nitrogen [Mass/Vol] 20 mg/dL 7 - 20 mg/d [place] Hemoglobin A1Con 05-12-2020 HbA1c (Bld) [Mass fraction] 6.7 % High 4.0-6.0 [facility] Comment on above: Result Comment: --Hg bA1C levels may not be accurate in patients who have renal disease, received recent blood transfusions, are anemic, or who have dyshemoglobinemia. Performed By: #### L IPD2, HEMDF, TSH5, CMP3, HA1C2 #### [facility] [address] [place] [address] HbA1c (Bld) [Mass fraction] 146 mg/dL Normal [facility] Comment on above: Performed By: #### L IPD2, HEMDF, TSH5, CMP3, HA1C2 #### [facility] [address] [place] [address] eAG 146 mg/dL [place] HbA1c (Bld) [Mass fraction] 6.7 % High 4 - 6 % [place] Comment on above: --HgbA1C levels may not be accurate in patients who have renal disease, received recent blood transfusions, are anemic, or who have dyshemoglobinemia. Interpretation and review of laboratory results Abnormal [place] Test Performed by [facility], [address] , [place], [place] [id number] [place] [address] Hemogram w/ Autodiffon 05-12 Abs Baso Cnt 0.1 10*3/uL Normal 0.0-0.2 [facility] Comment on above: Performed By: #### L IPD2, HEMDF, TSH5, CMP3, HA1C2 #### [facility] [address] [place] [address] Abs Neutrophile Cnt 4.8 10*3/uL Normal 1.8-7.0 [facility] Comment on above: Performed By: #### L IPD2, HEMDF, TSH5, CMP3, HA1C2 #### [facility] [address] [place] [address] Basophils/100 WBC (Bld) 0.9 % Normal 0.0-2.0 [facility] Comment on above: Performed By: #### L IPD2, HEMDF, TSH5, CMP3, HA1C2 #### [facility] [address] [place] [address] Eosinophils (Bld) [#/Vol] 0.2 10*3/uL Normal 0.0-0.5 [facility] Comment on above: Performed By: #### L IPD2, HEMDF, TSH5, CMP3, HA1C2 #### [facility] [address] [place] [address] Eosinophils/100 WBC (Bld) 2.5 % Normal 1.0-6.0 [facility] Comment on above: Performed By: #### L IPD2, HEMDF, TSH5, CMP3, HA1C2 #### [facility] [address] [place] [address] Erythrocyte distribution width (RBC) [Ratio] 12.9 % Normal 11.5-14.5 [facility] Comment on above: Performed By: #### L IPD2, HEMDF, TSH5, CMP3, HA1C2 #### [facility] [address] [place] [address] Granulocytes/100 WBC (Bld) 52.8 % Normal 40.0-80.0 [facility] Comment on above: Performed By: #### L IPD2, HEMDF, TSH5, CMP3, HA1C2 #### [facility] [address] [place] [address] Hematocrit (Bld) [Volume fraction] 46.8 % Normal 35.0-47.0 [facility] Comment on above: Performed By: #### L IPD2, HEMDF, TSH5, CMP3, HA1C2 #### [facility] [address] [place] [address] Hemoglobin (Bld) [Mass/Vol] 16.2 g/dL High 11.7-16.0 [facility] Comment on above: Performed By: #### L IPD2, HEMDF, TSH5, CMP3, HA1C2 #### [facility] [address] [place] [address] Lymphocytes (Bld) [#/Vol] 3.4 10*3/uL Normal 1.0-4.3 [facility] Comment on above: Performed By: #### L IPD2, HEMDF, TSH5, CMP3, HA1C2 #### [facility] [address] [place] [address] Lymphocytes/100 WBC (Bld) 36.9 % Normal 20.0-40.0 [facility] Comment on above: Performed By: #### L IPD2, HEMDF, TSH5, CMP3, HA1C2 #### [facility] [address] [place] [address] MCH (RBC) [Entitic mass] 31.9 pg Normal 26.0-34.0 [facility] Comment on above: Performed By: #### L IPD2, HEMDF, TSH5, CMP3, HA1C2 #### [facility] [address] [place] [address] MCHC (RBC) [Mass/Vol] 34.7 % Normal 32.0-36.0 [facility] Comment on above: Performed By: #### L IPD2, HEMDF, TSH5, CMP3, HA1C2 #### [facility] [address] [place] [address] MCV (RBC) [Entitic vol] 91.8 fL Normal 79.0-98.0 [facility] Comment on above: Performed By: #### L IPD2, HEMDF, TSH5, CMP3, HA1C2 #### [facility] [address] [place] [address] Monocytes (Bld) [#/Vol] 0.6 10*3/uL Normal 0.0-0.8 [facility] Comment on above: Performed By: #### L IPD2, HEMDF, TSH5, CMP3, HA1C2 #### [facility] [address] [place] [address] Monocytes/100 WBC (Bld) 6.9 % Normal 2.0-10.0 [facility] Comment on above: Performed By: #### L IPD2, HEMDF, TSH5, CMP3, HA1C2 #### [facility] [address] [place] [address] Platelet mean volume (Bld) [Entitic vol] 7.7 fL Normal 7.4-10.4 [facility] Comment on above: Performed By: #### L IPD2, HEMDF, TSH5, CMP3, HA1C2 #### [facility] [address] [place] [address] Platelets (Bld) [#/Vol] 298 10*3/uL Normal 140-440 [facility] Comment on above: Performed By: #### L IPD2, HEMDF, TSH5, CMP3, HA1C2 #### [facility] [address] [place] [address] RBC (Bld) [#/Vol] 5.10 10*6/uL Normal 3.80-5.20 [facility] Comment on above: Performed By: #### L IPD2, HEMDF, TSH5, CMP3, HA1C2 #### [facility] [address] [place] [address] WBC (Bld) [#/Vol] 9.1 10*3/uL Normal 3.6-10.7 [facility] Comment on above: Performed By: #### L IPD2, HEMDF, TSH5, CMP3, HA1C2 #### [facility] [address] [place] [address] Lipid Panelon 05-12-2020 Cholesterol in HDL [Mass/Vol] 54 mg/dL Normal 40-60 [facility] Comment on above: Performed By: #### L IPD2, HEMDF, TSH5, CMP3, HA1C2 #### [facility] [address] [place] [address] Cholesterol.total/Choles terol in HDL [Mass ratio] 5 Normal [facility] Comment on above: Result Comment: Ref Range: < 3 Low Risk for CHD 3-6 Mod Risk for CHD > 6 High Risk for CHD Performed By: #### L IPD2, HEMDF, TSH5, CMP3, HA1C2 #### [facility] [address] [place] [address] Protein [Mass/Vol] 151 mg/dL Abnormal <100 [facility] Comment on above: Performed By: #### L IPD2, HEMDF, TSH5, CMP3, HA1C2 #### [facility] [address] [place] [address] Triglyceride [Mass/Vol] 194 mg/dL Abnormal <150 [facility] Comment on above: Performed By: #### L IPD2, HEMDF, TSH5, CMP3, HA1C2 #### [facility] [address] [place] [address] Cholesterol [Mass/Vol] 244 mg/dL Abnormal < 200 [facility] Comment on above: Performed By: #### L IPD2, HEMDF, TSH5, CMP3, HA1C2 #### [facility] [address] [place] [address] Cholesterol [Mass/Vol] 244 mg/dL Abnormal <200 [place] Cholesterol in HDL [Mass/Vol] 54 mg/dL 40 - 60 mg/dL [place] Cholesterol in LDL [Mass/Vol] 151 mg/dL Abnormal <100 [place] Cholesterol.total/Choles terol in HDL [Mass ratio] 5 {ratio} [place] Comment on above: Ref Range: < 3 Low Risk for CHD 3-6 Mod Risk for CHD > 6 High Risk for CHD Triglyceride [Mass/Vol] 194 mg/dL Abnormal <150 [place] Otheron 05-12-2020 Interpretation and review of laboratory results Abnormal [place] Test Performed by [facility], [address] , [address] TSH without Reflexon 020 Interpretation and review of laboratory results Abnormal [place] TSH Qn 7.501 u[IU]/mL High 0.465 - 4.68 u[IU]/mL [place] Test Performed by [facility], [address] , [address] Thyroid Stim. Hormoneon Thyroid Stim. Hormone 7.501 u[IU]/mL High 0.465-4.68 0 [facility] Comment on above: Performed By: #### L IPD2, HEMDF, TSH5, CMP3, HA1C2 #### [facility] [address] [place] [address] Glucose,Bedsideon 04-30-2020 Glucose [Mass/Vol] 131 mg/dL High 70-100 [facility] Comment on above: Result Comment: Test performed by glucose meter. Results may be 10%-15% lower than serum/plasma values. (CLIA ID [id number]) Performed By: #### L IPD2, HEMDF, TSH5, CMP3, HA1C2 #### [facility] [address] [place] [address] Glucose [Mass/Vol] 137 mg/dL High 70-100 [facility] Comment on above: Result Comment: Test performed by glucose meter. Results may be 10%-15% lower than serum/plasma values. (CLIA ID [id number]) Performed By: #### B GLU #### [facility] [address] [place] [address] [id number] 04-30-2020 SARS-CoV-2 SARS-CoV-2 --> Status: F Not Detected Expected Result: Not Detected _ Real-time, RT-PCR performed on the [employer] System by the [facility]. Negative results do not preclude SARS-CoV-2 infection and should not be used as the sole basis for treatment or other patient management decisions. This assay was developed by [employer] and distributed under an Emergency Use Authorization (EUA) granted by the FDA for the qualitative detection of SARS-CoV-2 nucleic acid. Results were determined from a pool consisting of specimens from additional patients. This test was modified, and its performance characteristics, showing minimal loss of sensitivity, have been validated by the [facility]. Approval is pending review by the U. S. Food and Drug Administration. If symptoms are severe and persist, testing a new specimen may be warranted. Additionally, IgG testing may be considered for patients more than 7-10 days post onset of symptoms. Expected Result: Not Detected _ Real-time, RT-PCR performed on the [employer] System by the [facility]. Negative results do not preclude SARS-CoV-2 infection and should not be used as the sole basis for treatment or other patient management decisions. This assay was developed by [employer] and distributed under an Emergency Use Authorization (EUA) granted by the FDA for the qualitative detection of SARS-CoV-2 nucleic acid. Results were determined from a pool consisting of specimens from additional patients. This test was modified, and its performance characteristics, showing minimal loss of sensitivity, have been validated by the [facility]. Approval is pending review by the U. S. Food and Drug Administration. If symptoms are severe and persist, testing a new specimen may be warranted. Additionally, IgG testing may be considered for patients more than 7-10 days post onset of symptoms. Normal [facility] Comment on above: Order Comment: Speci men Source Comment:Nasopharyngeal Swab Performed By: #### L IPD2, HEMDF, TSH5, CMP3, HA1C2 #### [facility] [address] [place] [address] Basic Metabolic Panelon -08 19-2020 Calcium [Mass/Vol] 9.7 mg/dL Normal 8.4-10.4 [facility] Comment on above: Performed By: #### L IPD2, HEMDF, TSH5, CMP3, HA1C2 #### [facility] [address] [place] [address] Glucose [Mass/Vol] 134 mg/dL High 70-100 [facility] Comment on above: Performed By: #### L IPD2, HEMDF, TSH5, CMP3, HA1C2 #### [facility] [address] [place] [address] Anion gap [Moles/Vol] 7 Normal [facility] Comment on above: Performed By: #### L IPD2, HEMDF, TSH5, CMP3, HA1C2 #### [facility] [address] [place] [address] CO2 [Moles/Vol] 26 mmol/L Normal 22-30 [facility] Comment on above: Performed By: #### L IPD2, HEMDF, TSH5, CMP3, HA1C2 #### [facility] [address] [place] [address] Creatinine [Mass/Vol] 0.48 mg/dL Low 0.52-1.25 [facility] Comment on above: Performed By: #### L IPD2, HEMDF, TSH5, CMP3, HA1C2 #### [facility] [address] [place] [address] GFR/1.73 sq M predicted among blacks MDRD (S/P/Bld) [Vol rate/Area] mL/min/{1.73_m2} Normal >60 [facility] Comment on above: Performed By: #### L IPD2, HEMDF, TSH5, CMP3, HA1C2 #### [facility] [address] [place] [address] GFR/1.73 sq M predicted among non-blacks MDRD (S/P/Bld) [Vol rate/Area] 89.8 mL/min/{1.73_m2} Normal >60 [facility] Comment on above: Result Comment: KDIG [...] L IPD2, HEMDF, TSH5, CMP3, HA1C2 #### [facility] [address] [place] [address] Urea nitrogen [Mass/Vol] 16 mg/dL Normal 7-20 [facility] Comment on above: Performed By: #### L IPD2, HEMDF, TSH5, CMP3, HA1C2 #### [facility] [address] [place] [address] Chloride [Moles/Vol] 108 mmol/L High 98-107 [facility] Comment on above: Performed By: #### L IPD2, HEMDF, TSH5, CMP3, HA1C2 #### [facility] [address] [place] [address] Potassium [Moles/Vol] 3.8 mmol/L Normal 3.5-5.1 [facility] Comment on above: Performed By: #### L IPD2, HEMDF, TSH5, CMP3, HA1C2 #### [facility] [address] [place] [address] Sodium [Moles/Vol] 141 mmol/L Normal 135-145 [facility] Comment on above: Performed By: #### L IPD2, HEMDF, TSH5, CMP3, HA1C2 #### [facility] [address] [place] [address] Glucose,Bedsideon 04-29-2020 Glucose [Mass/Vol] 250 mg/dL High 70-100 [facility] Comment on above: Result Comment: Test performed by glucose meter. Results may be 10%-15% lower than serum/plasma values. (CLIA ID [id number]) Performed By: #### B GLU #### [facility] [address] [place] [address] Glucose [Mass/Vol] 133 mg/dL High 70-100 [facility] Comment on above: Result Comment: Test performed by glucose meter. Results may be 10%-15% lower than serum/plasma values. (CLIA ID [id number]) Performed By: #### L IPD2, HEMDF, TSH5, CMP3, HA1C2 #### [facility] [address] [place] [address] Glucose [Mass/Vol] 136 mg/dL High 70-100 [facility] Comment on above: Result Comment: Test performed by glucose meter. Results may be 10%-15% lower than serum/plasma values. (CLIA ID [id number]) Performed By: #### L IPD2, HEMDF, TSH5, CMP3, HA1C2 #### [facility] [address] [place] [address] Glucose [Mass/Vol] 154 mg/dL High 70-100 [facility] Comment on above: Result Comment: Test performed by glucose meter. Results may be 10%-15% lower than serum/plasma values. (CLIA ID [id number]) Performed By: #### L IPD2, HEMDF, TSH5, CMP3, HA1C2 #### [facility] [address] [place] [address] Hemogramon 04-29-2020 Erythrocyte distribution width (RBC) [Ratio] 13.1 % Normal 11.5-14.5 [facility] Comment on above: Performed By: #### L IPD2, HEMDF, TSH5, CMP3, HA1C2 #### [facility] [address] [place] [address] Hematocrit (Bld) [Volume fraction] 43.7 % Normal 35.0-47.0 [facility] Comment on above: Performed By: #### L IPD2, HEMDF, TSH5, CMP3, HA1C2 #### [facility] [address] [place] [address] Hemoglobin (Bld) [Mass/Vol] 14.3 g/dL Normal 11.7-16.0 [facility] Comment on above: Performed By: #### L IPD2, HEMDF, TSH5, CMP3, HA1C2 #### [facility] [address] [place] [address] MCH (RBC) [Entitic mass] 30.5 pg Normal 26.0-34.0 [facility] Comment on above: Performed By: #### L IPD2, HEMDF, TSH5, CMP3, HA1C2 #### [facility] [address] [place] [address] MCHC (RBC) [Mass/Vol] 32.8 % Normal 32.0-36.0 [facility] Comment on above: Performed By: #### L IPD2, HEMDF, TSH5, CMP3, HA1C2 #### [facility] [address] [place] [address] MCV (RBC) [Entitic vol] 92.9 fL Normal 79.0-98.0 [facility] Comment on above: Performed By: #### L IPD2, HEMDF, TSH5, CMP3, HA1C2 #### [facility] [address] [place] [address] Platelet mean volume (Bld) [Entitic vol] 7.4 fL Normal 7.4-10.4 [facility] Comment on above: Performed By: #### L IPD2, HEMDF, TSH5, CMP3, HA1C2 #### [facility] [address] [place] [address] Platelets (Bld) [#/Vol] 249 10*3/uL Normal 140-440 [facility] Comment on above: Performed By: #### L IPD2, HEMDF, TSH5, CMP3, HA1C2 #### [facility] [address] [place] [address] RBC (Bld) [#/Vol] 4.70 10*6/uL Normal 3.80-5.20 [facility] Comment on above: Performed By: #### L IPD2, HEMDF, TSH5, CMP3, HA1C2 #### [facility] [address] [place] [address] WBC (Bld) [#/Vol] 8.6 10*3/uL Normal 3.6-10.7 [facility] Comment on above: Performed By: #### L IPD2, HEMDF, TSH5, CMP3, HA1C2 #### [facility] [address] [place] [address] CKon 04-28-2020 CK [Catalytic activity/Vol] 62 U/L Normal 30-170 [facility] Comment on above: Performed By: #### L IPD2, HEMDF, TSH5, CMP3, HA1C2 #### [facility] [address] [place] [address] CTA Head/Neck w/ + w/o contr yony 04-28-2020 CTA Head/Neck w/ + w/o contrast Patient Name: RAUDEL AHUMADA [facility]: [id number] CT Exam Date/Time 04/28/2020 00:51:25 EDT Exam CTA Head/Neck w/ + w/o contrast Ordering Physician GREGORIO KONG Accession Number [id number] CPT4 Codes Q9967 (CT ISOVUE 370MG/[id number]), 11354 (), 10905 () Reason For Exam also read out [...] Transcribed Date and Time: 04/28/2020 2:35 Normal [facility] Complete Urinalysison 2019 Bacteria LM.HPF (Urine sed) [#/Area] Moderate (6-50) Abnormal Negative [facility] Comment on above: Result Comment: . Performed By: #### B GLU #### [facility] [address] [place] [address] RBC LM.HPF (Urine sed) [#/Area] Negative Normal 0-2 [facility] Comment on above: Result Comment: . Performed By: #### B GLU #### [facility] [address] [place] [address] Squamous Epithelial 3 - 5 Normal 3-5 [facility] Comment on above: Result Comment: . Performed By: #### B GLU #### [facility] [address] [place] [address] VOLUME, URINE 12 ml Normal [facility] Comment on above: Result Comment: . Performed By: #### B GLU #### [facility] [address] [place] [address] WBC LM.HPF (Urine sed) [#/Area] 6 - 10 Abnormal 0-5 [facility] Comment on above: Result Comment: . Performed By: #### B GLU #### [facility] [address] [place] [address] Appearance (U) Clear Normal Clear [facility] Comment on above: Result Comment: . Performed By: #### B GLU #### [facility] [address] [place] [address] Bilirubin,Urine Negative Normal Negative [facility] Comment on above: Result Comment: . Performed By: #### B GLU #### [facility] [address] [place] [address] Color (U) YELLOW Normal Lt. Yellow [facility] Comment on above: Result Comment: . Performed By: #### B GLU #### [facility] [address] [place] [address] Glucose Ql (U) Normal Normal Normal (<70) [facility] Comment on above: Result Comment: . Performed By: #### B GLU #### [facility] [address] [place] [address] Ketone,Urine Trace Abnormal Negative [facility] Comment on above: Result Comment: . Performed By: #### B GLU #### [facility] [address] [place] [address] Leukocytes,Urine 250 Philipp/uL Abnormal Negative [facility] Comment on above: Result Comment: . Performed By: #### B GLU #### [facility] [address] [place] [address] Nitrites,Urine Negative Normal Negative [facility] Comment on above: Result Comment: . Performed By: #### B GLU #### [facility] [address] [place] [address] Occult Blood,Urine Negative Normal Negative [facility] Comment on above: Result Comment: . Performed By: #### B GLU #### [facility] [address] [place] [address] pH (U) 5.5 Normal 5.0-8.0 [facility] Comment on above: Result Comment: . Performed By: #### B GLU #### [facility] [address] [place] [address] Protein (U) [Mass/Vol] 70 mg/dL Abnormal Negative [facility] Comment on above: Result Comment: . Performed By: #### B GLU #### [facility] [address] [place] [address] Specific Slinger,Urine 1.028 Normal 1.005 - 1.030 [facility] Comment on above: Result Comment: . Performed By: #### B GLU #### [facility] [address] [place] [address] Urobilinogen,Urine Normal Normal Normal (0-1) [facility] Comment on above: Result Comment: . Performed By: #### B GLU #### [facility] [address] [place] [address] Echo Complete w/wo Contrasto n 04-28-2020 Echo Complete w/wo Contrast Patient Name: RAUDEL AHUMADA Ultrasound Exam Date/Time 04/28/2020 09:01:04 EDT Exam Echo Complete w/wo Contrast Ordering Physician [id number] -GREGORIO SHEEHAN Accession Number [id number] Reason For Exam syncope Report TRANSTHORACIC ECHOCARDIOGRAM PATIENT: Raudel Ahumada STUDY DATE: 04/28/2020 : 1935 AGE: 84 HT/WT: 157.5 cm (62 124.7 kg in) (274.4 lb) GENDER: F BP: 143 / 63 LOCATION: [facility] PATIENT Inpatient [facility] STATUS: *ORDERING PHYSICIAN: * Gregorio Sheehan *FELLOW: Monika Torrez *READING PHYSICIAN: Mine Doty *LAP POLISHER: Mine Madrigal DO, FSVM, FACC RDCS, AE INDICATIONS: SYNCOPE. CONCLUSIONS SUMMARY: 1. Left [...] range. Electronically signed by Soren Madrigal DO, FS [facility] 04/28/2020 11:33 Prior Signatures: Final Dictated: 04/28/2020 11:33 am Dictating Physician: DO MADRIGAL JOSEPH Signed Date and Time: 04/28/2020 11:33 am Signed by: DO MADRIGAL JOSEPH Normal [facility] Glucose,Bedsideon 04-28-2020 Glucose [Mass/Vol] 187 mg/dL High 70-100 [facility] Comment on above: Result Comment: Test performed by glucose meter. Results may be 10%-15% lower than serum/plasma values. (CLIA ID [id number]) Performed By: #### L IPD2, HEMDF, TSH5, CMP3, HA1C2 #### [facility] [address] [place] [address] Glucose [Mass/Vol] 147 mg/dL High 70-100 [facility] Comment on above: Result Comment: Test performed by glucose meter. Results may be 10%-15% lower than serum/plasma values. (CLIA ID [id number]) Performed By: #### L IPD2, HEMDF, TSH5, CMP3, HA1C2 #### [facility] [address] [place] [address] Glucose [Mass/Vol] 189 mg/dL High 70-100 [facility] Comment on above: Result Comment: Test performed by glucose meter. Results may be 10%-15% lower than serum/plasma values. (CLIA ID [id number]) Performed By: #### L IPD2, HEMDF, TSH5, CMP3, HA1C2 #### [facility] [address] [place] [address] Glucose [Mass/Vol] 165 mg/dL High 70-100 [facility] Comment on above: Result Comment: Test performed by glucose meter. Results may be 10%-15% lower than serum/plasma values. (CLIA ID [id number]) Performed By: #### L IPD2, HEMDF, TSH5, CMP3, HA1C2 #### [facility] [address] [place] [address] Glucose [Mass/Vol] 184 mg/dL High 70-100 [facility] Comment on above: Result Comment: Test performed by glucose meter. Results may be 10%-15% lower than serum/plasma values. (CLIA ID [id number]) Performed By: #### L IPD2, HEMDF, TSH5, CMP3, HA1C2 #### [facility] [address] [place] [address] Lipid Panelon 04-28-2020 Cholesterol in HDL [Mass/Vol] 38 mg/dL Low 40-60 [facility] Comment on above: Performed By: #### L IPD2, HEMDF, TSH5, CMP3, HA1C2 #### [facility] [address] [place] [address] Cholesterol.total/Choles terol in HDL [Mass ratio] 5 Normal [facility] Comment on above: Result Comment: Ref Range: < 3 Low Risk for CHD 3-6 Mod Risk for CHD > 6 High Risk for CHD Performed By: #### L IPD2, HEMDF, TSH5, CMP3, HA1C2 #### [facility] [address] [place] [address] Protein [Mass/Vol] 136 mg/dL Abnormal <100 [facility] Comment on above: Performed By: #### L IPD2, HEMDF, TSH5, CMP3, HA1C2 #### [facility] [address] [place] [address] Cholesterol [Mass/Vol] 203 mg/dL Abnormal < 200 [facility] Comment on above: Performed By: #### L IPD2, HEMDF, TSH5, CMP3, HA1C2 #### [facility] [address] [place] [address] Triglyceride [Mass/Vol] 143 mg/dL Normal <150 [facility] Comment on above: Performed By: #### L IPD2, HEMDF, TSH5, CMP3, HA1C2 #### [facility] [address] [place] [address] MRI Brain w/o Contraston MRI Brain w/o Contrast Patient Name: RAUDEL AHUMADA MRI Exam Date/Time 04/28/2020 11:31:44 EDT Exam MRI Brain w/o Contrast Ordering Physician GREGORIO KONG Accession Number [id number] CPT4 Codes 79797 () Reason For Exam syncope x2 Report [...] Transcribed Date and Time: 04/28/2020 12:37 Normal [facility] Troponin Ion 04-28-2020 Troponin I.cardiac [Mass/Vol] 0.018 ng/mL Normal 0.000-0.034 [facility] Comment on above: Result Comment: . Performed By: #### L IPD2, HEMDF, TSH5, CMP3, HA1C2 #### [facility] [address] [place] [address] CR Chest Portableon 04-27-20 20 CR Chest Portable Patient Name: RAUDEL AHUMADA Diagnostic Radiology Exam Date/Time 04/27/2020 21:35:51 EDT Exam CR Chest Portable Ordering Physician HERB HILLMAN Accession Number [id number] CPT4 Codes 52812 () Reason For Exam syncvope Report PORTABLE [...] No acute process. Report Dictated on Workstation: [facility] Final Dictating Physician: DO LOLYD ALFRED Signed Date and Time: 04/27/2020 9:41 pm Signed by: DO LLOYD ALFRED Transcribed Date and Time: 04/27/2020 9:42 Normal [facility] Comp Metabolic Panelon 04-27 ALP [Catalytic activity/Vol] 113 U/L Normal 38-126 [facility] Comment on above: Performed By: #### B GLU #### [facility] [address] [place] [address] ALT [Catalytic activity/Vol] 18 U/L Normal 0-34 [facility] Comment on above: Result Comment: The ALT test is performed by an updated assay method. Please note that the reference intervals have been changed and are now sex specific. Performed By: #### B GLU #### [facility] [address] [place] [address] AST [Catalytic activity/Vol] 28 U/L Normal 15-46 [facility] Comment on above: Performed By: #### B GLU #### [facility] [address] [place] [address] Calcium [Mass/Vol] 10.2 mg/dL Normal 8.4-10.4 [facility] Comment on above: Performed By: #### B GLU #### [facility] [address] [place] [address] Glucose [Mass/Vol] 138 mg/dL High 70-100 [facility] Comment on above: Performed By: #### B GLU #### [facility] [address] [place] [address] Protein [Mass/Vol] 7.3 g/dL Normal 6.3-8.2 [facility] Comment on above: Performed By: #### B GLU #### [facility] [address] [place] [address] Urea nitrogen [Mass/Vol] 25 mg/dL High 7-20 [facility] Comment on above: Performed By: #### B GLU #### [facility] [address] [place] [address] Anion gap [Moles/Vol] 8 Normal [facility] Comment on above: Performed By: #### B GLU #### [facility] [address] [place] [address] Bilirubin [Mass/Vol] 0.8 mg/dL Normal 0.2-1.3 [facility] Comment on above: Performed By: #### B GLU #### [facility] [address] [place] [address] CO2 [Moles/Vol] 26 mmol/L Normal 22-30 [facility] Comment on above: Performed By: #### B GLU #### [facility] [address] [place] [address] Creatinine [Mass/Vol] 0.51 mg/dL Low 0.52-1.25 [facility] Comment on above: Performed By: #### B GLU #### [facility] [address] [place] [address] GFR/1.73 sq M predicted among blacks MDRD (S/P/Bld) [Vol rate/Area] mL/min/{1.73_m2} Normal >60 [facility] Comment on above: Performed By: #### B GLU #### [facility] [address] [place] [address] GFR/1.73 sq M predicted among non-blacks MDRD (S/P/Bld) [Vol rate/Area] 88.0 mL/min/{1.73_m2} Normal >60 [facility] Comment on above: Result Comment: KDIG [...] secretion. Performed By: #### B GLU #### [facility] [address] [place] [address] Albumin [Mass/Vol] 4.2 g/dL Normal 3.5-5.0 [facility] Comment on above: Performed By: #### B GLU #### [facility] [address] [place] [address] Potassium [Moles/Vol] 3.9 mmol/L Normal 3.5-5.1 [facility] Comment on above: Performed By: #### B GLU #### [facility] [address] [place] [address] Chloride [Moles/Vol] 106 mmol/L Normal 98-107 [facility] Comment on above: Performed By: #### B GLU #### [facility] [address] [place] [address] Sodium [Moles/Vol] 140 mmol/L Normal 135-145 [facility] Comment on above: Performed By: #### B GLU #### [facility] [address] [place] [address] ED Provider Noteon 0 ED Provider Note [...] MOUTH EVERY DAY, Disp-90 tablet,R-1Normal !! Handicap [facility] Starting [place]ta 04/09/2019, Disp-1 each, R-0, PrintDX arthritis 5 years !! Handicap [facility] Starting Sat04/08/2019, Disp-1 each, R-0, PrintDX arthritis 5 years B Iblkifd-Wsntxc-EF (VITAMIN B50 COMPLEX PO) Take by mouthHistorical Med VITAMIN E PO Take by mouth Indications: 2000units dailyHistorical Med Multiple Vitamins-Minerals (MULTIVITAMIN ADULT PO) Take by mouthHistorical Med !! Handicap [facility] Starting Sat12/31/2018, Disp-1 each, R-0, PrintDX Arthritis 5 years Lancets [facility] Disp-100 each, R-3, PrintDx E11.9 TEST ONCE DAILY PATIENT USES [employer] Glucose Blood (BLOOD GLUCOSE TEST STRIPS) STRP [...] on phone: None Gets together: None Attends restorationism service: None Active member of club or [...] Response: Oriented Best Motor Response: Obeys commands Ramona Coma Scale Score: 15 PHYSICAL EXAM (5+ [...] within normal limits Narrative: Test Performed by [facility], [address] [place] [address] CBC WITH AUTO DIFFERENTIAL - Abnormal; Notable for the following components: Absolute Neut # 7.1 (*) All other components within normal limits Narrative: Test Performed by [facility], [address] [place] [address] URINALYSIS - Abnormal; Notable for the following components: Total Protein, Urine 70 (*) Ketones, Urine Trace (*) LEUKOCYTES, UA 250 (*) WBC, UA 6-10 (*) Bacteria, UA Moderate (6-50) (*) All other components within normal limits Narrative: Test Performed by [facility], [address] [place] [address] Rd. , [place], [place] [address] LIPID PANEL - Abnormal; Notable for the following components: Cholesterol 203 (*) HDL 38 (*) LDL Cholesterol 136 (*) All other components within normal limits Narrative: Test Performed by [facility], [address] [address] BASIC METABOLIC PANEL - Abnormal; Notable for the following components: Chloride 108 (*) Glucose 134 (*) CREATININE 0.48 (*) All other components within normal limits Narrative: Test Performed by [facility] [employer], [address] [address] POCT GLUCOSE - Abnormal; Notable for the following components: POC Glucose 184 (*) All other components within normal limits Narrative: Test Performed by [facility], [address] [address] POCT GLUCOSE - Abnormal; Notable for the following components: POC Glucose 165 (*) All other components within normal limits Narrative: Test Performed by [facility] [employer], [address] [address] POCT GLUCOSE - Abnormal; Notable for the following components: POC Glucose 189 (*) All other components within normal limits Narrative: Test Performed by [facility] [employer], [address] [place] [address] POCT GLUCOSE - Abnormal; Notable for the following components: POC Glucose 147 (*) All other components within normal limits Narrative: Test Performed by [facility] [employer], [address] [address] POCT GLUCOSE - Abnormal; Notable for the following components: POC Glucose 187 (*) All other components within normal limits Narrative: Test Performed by [facility] [employer], [address] [address] POCT GLUCOSE - Abnormal; Notable for the following components: POC Glucose 154 (*) All other components within normal limits Narrative: Test Performed by [facility] [employer], [address] [address] POCT GLUCOSE - Abnormal; Notable for the following components: POC Glucose 136 (*) All other components within normal limits Narrative: Test Performed by [facility] [employer], [address] [address] POCT GLUCOSE - Abnormal; Notable for the following components: POC Glucose 133 (*) All other components within normal limits Narrative: Test Performed by [facility], [address], [place], [place] [address] POCT GLUCOSE - Abnormal; Notable for the following components: POC Glucose 250 (*) All other components within normal limits Narrative: Test Performed by [facility], [address] [place], [place] [address] POCT GLUCOSE - Abnormal; Notable for the following components: POC Glucose 137 (*) All other components within normal limits Narrative: Test Performed by [facility], [address] [place], [place] [address] POCT GLUCOSE - Abnormal; Notable for the following components: POC Glucose 131 (*) All other components within normal limits Narrative: Test Performed by [facility] [employer], [address] [place], [place], [place] [address] BRAIN NATRIURETIC PEPTIDE Narrative: Test Performed by [facility], [address] , [place], [place] [address] LIPASE Narrative: Test Performed by [facility], [address] , [place], [place] [address] MAGNESIUM Narrative: Test Performed by [facility], [address] , [place] [address] TROPONIN Narrative: Test Performed by [facility], [address] , [place], [place] [address] CK Narrative: Test Performed by [facility], [address] [place], [place], [place] [address] TROPONIN Narrative: Test Performed by [facility], [address] [place], [place], [place] [address] CBC Narrative: Test Performed by [facility], [address] [place], [place] [address] COVID-19 Narrative: Test Performed by [facility], [address] [place] [address] Specimen Source Comment:Nasopharynge al Swab POCT GLUCOSE [...] No treatment, delayed treatment, observation and referral Herminie protocol: Procedure explained and questions answered to [...] method: Pressure wash Skin repair: Repair method: [place] Number of leonid: 8 Approximation: Approximation: Close Post-procedure details: Dressing: Open (no dressing) Patient tolerance of procedure: Tolerated well, no immediate complications FINAL IMPRESSION 1. Syncope and collapse 2. Injury of head, initial encounter 3. Laceration of scalp, initial encounter DISPOSITION/PLAN DISPOSITION Admitted 04/27/2020 10:01:51 PM PATIENT REFERRED TO: Maida Doshi MD [address] [place] [address] DISCHARGE MEDICATIONS: Discharge Medication List as of 04/30/2020 3:29 PM (Please note: Portions of this note were completed with a voice recognition program. Efforts were made to edit thedictations but occasionally words and phrases are mis-transcribed.) Form [id number] Herb Moreno MD (electronically signed) Emergency Medicine Provider Hebr Moreno MD 04/27/20 2209 Herb Moreno MD 05/05/20 1759 Herb Moreno MD 05/05/20 1800 Herb Moreno MD 05/30/20 1724 Herb Moreno MD 05/30/20 1739 Herb Moreno MD 05/30/20 1742 Herb Moreno MD 06/01/20 2038 Normal [facility] Hemogram w/ Autodiffon 04-27 Abs Baso Cnt 0.1 10*3/uL Normal 0.0-0.2 [facility] Comment on above: Performed By: #### B GLU #### [facility] [address] [place] [address] Abs Neutrophile Cnt 7.1 10*3/uL High 1.8-7.0 [facility] Comment on above: Performed By: #### B GLU #### [facility] [address] [place] [address] Basophils/100 WBC (Bld) 1.2 % Normal 0.0-2.0 [facility] Comment on above: Performed By: #### B GLU #### [facility] [address] [place] [address] Eosinophils (Bld) [#/Vol] 0.2 10*3/uL Normal 0.0-0.5 [facility] Comment on above: Performed By: #### B GLU #### [facility] [address] [place] [address] Eosinophils/100 WBC (Bld) 2.4 % Normal 1.0-6.0 [facility] Comment on above: Performed By: #### B GLU #### [facility] [address] [place] [address] Erythrocyte distribution width (RBC) [Ratio] 13.2 % Normal 11.5-14.5 [facility] Comment on above: Performed By: #### B GLU #### [facility] [address] [place] [address] Granulocytes/100 WBC (Bld) 69.0 % Normal 40.0-80.0 [facility] Comment on above: Performed By: #### B GLU #### [facility] [address] [place] [address] Hematocrit (Bld) [Volume fraction] 45.6 % Normal 35.0-47.0 [facility] Comment on above: Performed By: #### B GLU #### [facility] [address] [place] [address] Hemoglobin (Bld) [Mass/Vol] 15.7 g/dL Normal 11.7-16.0 [facility] Comment on above: Performed By: #### B GLU #### [facility] [address] [place] [address] Lymphocytes (Bld) [#/Vol] 2.3 10*3/uL Normal 1.0-4.3 [facility] Comment on above: Performed By: #### B GLU #### [facility] [address] [place] [address] Lymphocytes/100 WBC (Bld) 21.8 % Normal 20.0-40.0 [facility] Comment on above: Performed By: #### B GLU #### [facility] [address] [place] [address] MCH (RBC) [Entitic mass] 31.5 pg Normal 26.0-34.0 [facility] Comment on above: Performed By: #### B GLU #### [facility] [address] [place] [address] MCHC (RBC) [Mass/Vol] 34.4 % Normal 32.0-36.0 [facility] Comment on above: Performed By: #### B GLU #### [facility] [address] [place] [address] MCV (RBC) [Entitic vol] 91.6 fL Normal 79.0-98.0 [facility] Comment on above: Performed By: #### B GLU #### [facility] [address] [place] [address] Monocytes (Bld) [#/Vol] 0.6 10*3/uL Normal 0.0-0.8 [facility] Comment on above: Performed By: #### B GLU #### [facility] [address] [place] [address] Monocytes/100 WBC (Bld) 5.6 % Normal 2.0-10.0 [facility] Comment on above: Performed By: #### B GLU #### [facility] [address] [place] [address] Platelet mean volume (Bld) [Entitic vol] 7.5 fL Normal 7.4-10.4 [facility] Comment on above: Performed By: #### B GLU #### [facility] [address] [place] [address] Platelets (Bld) [#/Vol] 286 10*3/uL Normal 140-440 [facility] Comment on above: Performed By: #### B GLU #### [facility] [address] [place] [address] RBC (Bld) [#/Vol] 4.98 10*6/uL Normal 3.80-5.20 [facility] Comment on above: Performed By: #### B GLU #### [facility] [address] [place] [address] WBC (Bld) [#/Vol] 10.4 10*3/uL Normal 3.6-10.7 [facility] Comment on above: Performed By: #### B GLU #### [facility] [address] [place] [address] Lipaseon 04-27-2020 Lipase [Catalytic activity/Vol] 75 U/L Normal 23-300 [facility] Comment on above: Performed By: #### B GLU #### [facility] [address] [place] [address] Magnesiumon 04-27-2020 Magnesium [Mass/Vol] 1.6 mg/dL Normal 1.6-2.3 [facility] Comment on above: Performed By: #### B GLU #### [facility] [address] [place] [address] NT pro BNPon 04-27-2020 Natriuretic peptide B (Bld) [Mass/Vol] 212 pg/mL Normal 0-450 [facility] Comment on above: Performed By: #### B GLU #### [facility] [address] [place] [address] Troponin Ion 04-27-2020 Troponin I.cardiac [Mass/Vol] ng/mL Normal 0.000-0.034 [facility] Comment on above: Result Comment: . Performed By: #### B GLU #### [facility] [address] [place] [address] CBC Auto Differentialon 01-10 Absolute Baso # 0.1 10*3/uL 0 - 0.2 10*3/uL [place] Absolute Neut # 5.1 10*3/uL 1.8 - 7 10*3/uL [place] Basophils/100 WBC (Bld) 1.2 % 0 - 2 % [place] Eosinophils (Bld) [#/Vol] 0.3 10*3/uL 0 - 0.5 10*3/uL [place] Eosinophils/100 WBC (Bld) 3.7 % 1 - 6 % [place] Erythrocyte distribution width (RBC) [Ratio] 12.9 % 11.5 - 14.5 % [place] Granulocytes/100 WBC (Bld) 54.5 % 40 - 80 % [place] Hematocrit (Bld) [Volume fraction] 42.9 % 35 - 47 % [place] Hemoglobin (Bld) [Mass/Vol] 14.6 g/dL 11.7 - 16 g/dL [place] Lymphocytes (Bld) [#/Vol] 3.2 10*3/uL 1 - 4.3 10*3/uL [place] Lymphocytes/100 WBC (Bld) 33.8 % 20 - 40 % [place] MCH (RBC) [Entitic mass] 31.9 pg 26 - 34 pg [place] MCHC (RBC) [Mass/Vol] 34.2 % 32 - 36 % [place] MCV (RBC) [Entitic vol] 93.3 fL 79 - 98 fL [place], [place] Monocytes (Bld) [#/Vol] 0.6 10*3/uL 0 - 0.8 10*3/uL [place] Monocytes/100 WBC (Bld) 6.8 % 2 - 10 % [place] Platelet mean volume (Bld) [Entitic vol] 7.7 fL 7.4 - 10.4 fL [place] Platelets (Bld) [#/Vol] 318 10*3/uL 140 - 440 10*3/uL [place] RBC (Bld) [#/Vol] 4.59 10*6/uL 3.8 - 5.2 10*6/uL [place] WBC (Bld) [#/Vol] 9.4 10*3/uL 3.6 - 10.7 10*3/uL [place] Test Performed by [facility], [address] , [place], [place] [address] [place] Comp Metabolic Panelon 01-19 ALP [Catalytic activity/Vol] 97 U/L Normal 38-126 [facility] Comment on above: Performed By: #### L IPD2, HEMDF, CMP3, HA1C2, TSH5 #### [facility] [address] [place] [address] ALT [Catalytic activity/Vol] 20 U/L Normal 0-34 [facility] Comment on above: Result Comment: The ALT test is performed by an updated assay method. Please note that the reference intervals have been changed and are now sex specific. Performed By: #### L IPD2, HEMDF, CMP3, HA1C2, TSH5 #### [facility] [address] [place] [address] Calcium [Mass/Vol] 9.9 mg/dL Normal 8.4-10.4 [facility] Comment on above: Performed By: #### L IPD2, HEMDF, CMP3, HA1C2, TSH5 #### [facility] [address] [place] [address] Glucose [Mass/Vol] 121 mg/dL High 70-100 [facility] Comment on above: Performed By: #### L IPD2, HEMDF, CMP3, HA1C2, TSH5 #### [facility] [address] [place] [address] Anion gap [Moles/Vol] 10 Normal [facility] Comment on above: Performed By: #### L IPD2, HEMDF, CMP3, HA1C2, TSH5 #### [facility] [address] [place] [address] AST [Catalytic activity/Vol] 24 U/L Normal 15-46 [facility] Comment on above: Performed By: #### L IPD2, HEMDF, CMP3, HA1C2, TSH5 #### [facility] [address] [place] [address] Bilirubin [Mass/Vol] 1.1 mg/dL Normal 0.2-1.3 [facility] Comment on above: Performed By: #### L IPD2, HEMDF, CMP3, HA1C2, TSH5 #### [facility] [address] [place] [address] CO2 [Moles/Vol] 26 mmol/L Normal 22-30 [facility] Comment on above: Performed By: #### L IPD2, HEMDF, CMP3, HA1C2, TSH5 #### [facility] [address] [place] [address] Creatinine [Mass/Vol] 0.69 mg/dL Normal 0.52-1.25 [facility] Comment on above: Performed By: #### L IPD2, HEMDF, CMP3, HA1C2, TSH5 #### [facility] [address] [place] [address] GFR/1.73 sq M predicted among blacks MDRD (S/P/Bld) [Vol rate/Area] mL/min/{1.73_m2} Normal >60 [facility] Comment on above: Performed By: #### L IPD2, HEMDF, CMP3, HA1C2, TSH5 #### [facility] [address] [place] [address] GFR/1.73 sq M predicted among non-blacks MDRD (S/P/Bld) [Vol rate/Area] 79.8 mL/min/{1.73_m2} Normal >60 [facility] Comment on above: Result Comment: KDIG [...] L IPD2, HEMDF, CMP3, HA1C2, TSH5 #### [facility] [address] [place] [address] Protein [Mass/Vol] 7.1 g/dL Normal 6.3-8.2 [facility] Comment on above: Performed By: #### L IPD2, HEMDF, CMP3, HA1C2, TSH5 #### [facility] [address] [place] [address] Urea nitrogen [Mass/Vol] 20 mg/dL Normal 7-20 [facility] Comment on above: Performed By: #### L IPD2, HEMDF, CMP3, HA1C2, TSH5 #### [facility] [address] [place] [address] Chloride [Moles/Vol] 104 mmol/L Normal 98-107 [facility] Comment on above: Performed By: #### L IPD2, HEMDF, CMP3, HA1C2, TSH5 #### [facility] [address] [place] [address] Potassium [Moles/Vol] 4.2 mmol/L Normal 3.5-5.1 [facility] Comment on above: Performed By: #### L IPD2, HEMDF, CMP3, HA1C2, TSH5 #### [facility] [address] [place] [address] Sodium [Moles/Vol] 140 mmol/L Normal 135-145 [facility] Comment on above: Performed By: #### L IPD2, HEMDF, CMP3, HA1C2, TSH5 #### [facility] [address] [place] [address] Albumin [Mass/Vol] 4.1 g/dL Normal 3.5-5.0 [facility] Comment on above: Performed By: #### L IPD2, HEMDF, CMP3, HA1C2, TSH5 #### [facility] [address] [place] [address] Comprehensive Metabolic Pane denny 01-20-2020 Albumin [Mass/Vol] 4.1 g/dL 3.5 - 5 g/dL [place] ALP [Catalytic activity/Vol] 97 U/L 38 - 126 U/L [place] ALT [Catalytic activity/Vol] 20 U/L 0 - 34 U/L [place] Comment on above: The ALT test is perf ormed by an updated assay method. Please note that the reference intervals have been changed and are now sex specific. Anion gap [Moles/Vol] 10 mmol/L [place], [place] AST [Catalytic activity/Vol] 24 U/L 15 - 46 U/L [place] Bilirubin Ql (U) 1.1 mg/dL 0.2 - 1.3 mg/dL [place] Calcium [Mass/Vol] 9.9 mg/dL 8.4 - 10. 4 mg/dL [place] Chloride [Moles/Vol] 104 mmol/L 98 - 10 7 mmol/L [place] CO2 [Moles/Vol] 26 mmol/L 22 - 30 mmol/L [place] Creatinine [Mass/Vol] 0.69 mg/dL 0.52 - 1.25 mg/dL [place] EGFR IF NonAfrican [place] 79.8 mL/min >60 [place] Comment on above: KDIGO guidelines pro [...] MDRD (S/P/Bld) [Vol rate/Area] mL/min/{1.73_m2} >60 mL/min [place] Glucose [Mass/Vol] 121 mg/dL High 70 - 100 mg/dL [place] Potassium [Moles/Vol] 4.2 mmol/L 3.5 - 5.1 mmol/L [place] Protein [Mass/Vol] 7.1 g/dL 6.3 - 8.2 g/dL [place] Sodium [Moles/Vol] 140 mmol/L 135 - 145 mmol/L [place] Urea nitrogen [Mass/Vol] 20 mg/dL 7 - 20 mg/d L [place] Hemoglobin A1Con 01-20-2020 HbA1c (Bld) [Mass fraction] 7.6 % High 4.0-5.7 [facility] Comment on above: Result Comment: --Hg bA1C levels may not be accurate in patients who have renal disease, received recent blood transfusions, are anemic, or who have dyshemoglobinemia. Performed By: #### L IPD2, HEMDF, CMP3, HA1C2, TSH5 #### [facility] [address] [place] [address] HbA1c (Bld) [Mass fraction] 171 mg/dL Normal [facility] Comment on above: Performed By: #### L IPD2, HEMDF, CMP3, HA1C2, TSH5 #### [facility] [address] [place] [address] eAG 171 mg/dL [place] HbA1c (Bld) [Mass fraction] 7.6 % High 4 - 5.7 % [place] Comment on above: --HgbA1C levels may not be accurate in patients who have renal disease, received recent blood transfusions, are anemic, or who have dyshemoglobinemia. Interpretation and review of laboratory results Abnormal [place] Test Performed by [facility], [address] , [place], [place] [address] [place] [address] Hemogram w/ Autodiffon 01-19 Abs Baso Cnt 0.1 10*3/uL Normal 0.0-0.2 [facility] Comment on above: Performed By: #### L IPD2, HEMDF, CMP3, HA1C2, TSH5 #### [facility] [address] [place] [address] Abs Neutrophile Cnt 5.1 10*3/uL Normal 1.8-7.0 [facility] Comment on above: Performed By: #### L IPD2, HEMDF, CMP3, HA1C2, TSH5 #### [facility] [address] [place] [address] Basophils/100 WBC (Bld) 1.2 % Normal 0.0-2.0 [facility] Comment on above: Performed By: #### L IPD2, HEMDF, CMP3, HA1C2, TSH5 #### [facility] [address] [place] [address] Eosinophils (Bld) [#/Vol] 0.3 10*3/uL Normal 0.0-0.5 [facility] Comment on above: Performed By: #### L IPD2, HEMDF, CMP3, HA1C2, TSH5 #### [facility] [address] [place] [address] Eosinophils/100 WBC (Bld) 3.7 % Normal 1.0-6.0 [facility] Comment on above: Performed By: #### L IPD2, HEMDF, CMP3, HA1C2, TSH5 #### [facility] [address] [place] [address] Erythrocyte distribution width (RBC) [Ratio] 12.9 % Normal 11.5-14.5 [facility] Comment on above: Performed By: #### L IPD2, HEMDF, CMP3, HA1C2, TSH5 #### [facility] [address] [place] [address] Granulocytes/100 WBC (Bld) 54.5 % Normal 40.0-80.0 [facility] Comment on above: Performed By: #### L IPD2, HEMDF, CMP3, HA1C2, TSH5 #### [facility] [address] [place] [address] Hematocrit (Bld) [Volume fraction] 42.9 % Normal 35.0-47.0 [facility] Comment on above: Performed By: #### L IPD2, HEMDF, CMP3, HA1C2, TSH5 #### [facility] [address] [place] [address] Hemoglobin (Bld) [Mass/Vol] 14.6 g/dL Normal 11.7-16.0 [facility] Comment on above: Performed By: #### L IPD2, HEMDF, CMP3, HA1C2, TSH5 #### [facility] [address] [place] [address] Lymphocytes (Bld) [#/Vol] 3.2 10*3/uL Normal 1.0-4.3 [facility] Comment on above: Performed By: #### L IPD2, HEMDF, CMP3, HA1C2, TSH5 #### [facility] [address] [place] [address] Lymphocytes/100 WBC (Bld) 33.8 % Normal 20.0-40.0 [facility] Comment on above: Performed By: #### L IPD2, HEMDF, CMP3, HA1C2, TSH5 #### [facility] [address] [place] [address] MCH (RBC) [Entitic mass] 31.9 pg Normal 26.0-34.0 [facility] Comment on above: Performed By: #### L IPD2, HEMDF, CMP3, HA1C2, TSH5 #### [facility] [address] [place] [address] MCHC (RBC) [Mass/Vol] 34.2 % Normal 32.0-36.0 [facility] Comment on above: Performed By: #### L IPD2, HEMDF, CMP3, HA1C2, TSH5 #### [facility] [address] [place] [address] MCV (RBC) [Entitic vol] 93.3 fL Normal 79.0-98.0 [facility] Comment on above: Performed By: #### L IPD2, HEMDF, CMP3, HA1C2, TSH5 #### [facility] [address] [place] [address] Monocytes (Bld) [#/Vol] 0.6 10*3/uL Normal 0.0-0.8 [facility] Comment on above: Performed By: #### L IPD2, HEMDF, CMP3, HA1C2, TSH5 #### [facility] [address] [place] [address] Monocytes/100 WBC (Bld) 6.8 % Normal 2.0-10.0 [facility] Comment on above: Performed By: #### L IPD2, HEMDF, CMP3, HA1C2, TSH5 #### [facility] [address] [place] [address] Platelet mean volume (Bld) [Entitic vol] 7.7 fL Normal 7.4-10.4 [facility] Comment on above: Performed By: #### L IPD2, HEMDF, CMP3, HA1C2, TSH5 #### [facility] [address] [place] [address] Platelets (Bld) [#/Vol] 318 10*3/uL Normal 140-440 [facility] Comment on above: Performed By: #### L IPD2, HEMDF, CMP3, HA1C2, TSH5 #### [facility] [address] [place] [address] RBC (Bld) [#/Vol] 4.59 10*6/uL Normal 3.80-5.20 [facility] Comment on above: Performed By: #### L IPD2, HEMDF, CMP3, HA1C2, TSH5 #### [facility] [address] [place] [address] WBC (Bld) [#/Vol] 9.4 10*3/uL Normal 3.6-10.7 [facility] Comment on above: Performed By: #### L IPD2, HEMDF, CMP3, HA1C2, TSH5 #### [facility] [address] [place] [address] Lipid Panelon 01-20-2020 Cholesterol in HDL [Mass/Vol] 47 mg/dL Normal 40-60 [facility] Comment on above: Performed By: #### B GLU #### [facility] [address] [place] [address] Cholesterol.total/Choles terol in HDL [Mass ratio] 5 Normal [facility] Comment on above: Result Comment: Ref Range: < 3 Low Risk for CHD 3-6 Mod Risk for CHD > 6 High Risk for CHD Performed By: #### B GLU #### [facility] [address] [place] [address] Protein [Mass/Vol] 156 mg/dL Abnormal <100 [facility] Comment on above: Performed By: #### B GLU #### [facility] [address] [place] [address] Triglyceride [Mass/Vol] 195 mg/dL Abnormal <150 [facility] Comment on above: Performed By: #### B GLU #### [facility] [address] [place] [address] Cholesterol [Mass/Vol] 242 mg/dL Abnormal < 200 [facility] Comment on above: Performed By: #### B GLU #### [facility] [address] [place] [address] Cholesterol [Mass/Vol] 242 mg/dL Abnormal <200 [place] Cholesterol in HDL [Mass/Vol] 47 mg/dL 40 - 60 mg/dL [place] Cholesterol in LDL [Mass/Vol] 156 mg/dL Abnormal <100 [place] Cholesterol.total/Choles terol in HDL [Mass ratio] 5 {ratio} [place] Comment on above: Ref Range: < 3 Low Risk for CHD 3-6 Mod Risk for CHD > 6 High Risk for CHD Triglyceride [Mass/Vol] 195 mg/dL Abnormal <150 [place] Microalbumin / Creatinine Ur ine Ratioon 01-20-2020 Albumin/Creatinine DL <= 20 mg/L (24H U) [Mass ratio] 18.6 mg/L High 0 - 17 mg/L [place] Comment on above: Microalbumin concent rations <30 are considered normal, 30-300 are considered microalbuminuria (or risk of diabetic nephropathy), and >300 are considered clinical albuminuria (clinical nephropathy). Diabetes Care,27, Supplement 1, H18-18, 2004 Albumin/Creatinine DL <= 20 mg/L (U) [Ratio] 9.2 mg/g 0 - 29.9 mg/g [place] Creatinine (U) [Mass/Vol] 201.3 mg/dL No Range [place] Interpretation and review of laboratory results Abnormal [place] Test Performed by [facility], [address] , [place], [place] [address] [place] [address] Microalbumin/Creat Ratioon 0 01-20-2020 Microalb/Creat Ratio 9.2 mg/g Normal 0.0-29.9 [facility] Comment on above: Performed By: #### B GLU #### [facility] [address] [place] [address] Microalbumin, Ur 18.6 mg/L High 0.0-17.0 [facility] Comment on above: Result Comment: Micr oalbumin concentrations <30 are considered normal, 30-300 are considered microalbuminuria (or risk of diabetic nephropathy), and >300 are considered clinical albuminuria (clinical nephropathy). Diabetes Care,27, Supplement 1, L23-39, 2003 Performed By: #### B GLU #### [facility] [address] [place] [address] Creatinine, Ur Random 201.3 mg/dL Normal No Range [facility] Comment on above: Performed By: #### B GLU #### [facility] [address] [place] [address] Otheron 01-20-2020 Interpretation and review of laboratory results Abnormal [place] Test Performed by [facility], [address] TSH without Reflexon 020 TSH Qn 1.553 u[IU]/mL 0.465 - 4.68 u[IU]/mL [place] Test Performed by [facility], [address] Thyroid Stim. Hormoneon 01-10 Thyroid Stim. Hormone 1.553 u[IU]/mL Normal 0.465-4.68 0 [facility] Comment on above: Performed By: #### B GLU #### [facility] [address] [place] [address] CT Cervical Spine WO Contras ton 06-05-2019 Patient Name: RAUDEL AHUMADA ---CT--- Exam Date/Time 06/05/2019 20:16:[address] Spine Cervical w/o Contrast Ordering Physician MD ANGEL BETSY Accession Number [id number] CPT4 Codes 02516 () Reason For Exam neck pain Report [...] I Transcribed Date and Time: 06/05/2019 8:22 [place], [facility] Incoming Radiology Results From [facility] - 06/05/2019 8:22 PM EDT Patient Name: RAUDEL AHUMADA ---CT--- Exam Date/Time 06/05/2019 20:16:[address] Spine Cervical w/o Contrast Ordering Physician MD ANGEL BETSY Accession Number [id number] CPT4 Codes 93649 () Reason For Exam neck pain Report [...] I Transcribed Date and Time: 06/05/2019 8:22 [facility], [place] CT Head WO Contraston 2018 Patient Name: RAUDEL AHUMADA ---CT--- Exam Date/Time 06/05/2019 20:16:[address] Head or Brain w/o Contrast Ordering Physician MD STANLEY, CARLA Accession Number [id number] CPT4 Codes 51897 () Reason For Exam fall, hematoma to [...] I Transcribed Date and Time: 06/05/2019 8:16 [place], [facility] - 06/05/2019 8:16 PM EDT Patient Name: RAUDEL AHUMADA ---CT--- Exam Date/Time 06/05/2019 20:16:[address] Head or Brain w/o Contrast Ordering Physician MD ANGEL BETSY Accession Number [id number] CPT4 Codes 41915 () Reason For Exam fall, hematoma to [...] I Transcribed Date and Time: 06/05/2019 8:16 [facility], [place] Vital Signs Date Time Vital Sign Value Performing Clinician Obdulia barnes 05-06-2020 10:36-0400 BP Diastolic 81 mm[Hg] Johnny [facility] , [place] 05-06-2020 10:36-0400 BP Systolic 172 mm[Hg] Johnny [place], [place] 05-06-2020 10:33-0400 Body Temperature 97.2 [degF] Johnny [facility], [place] 05-06-2020 10:31-0400 BMI (Body Mass Index) 45.71 kg/m2 Johnny Michaud [facility], [place] 05-06-2020 10:31-0400 Body weight 113.4 kg Jonhny Michaud [place], [place] 05-06-2020 10:31-0400 Pulse (Heart Rate) 65 /min Johnny Michaud [facility], [place] 05-06-2020 10:31-0400 Pulse Oximetry 93 % Johnny Michaud [place], [place] 05-06-2020 10:31-0400 Respiratory Rate 18 /min Johnny [place], [place] 06-05-2019 20:55-0400 BP Diastolic 59 mm[Hg] [place], [place] 06-05-2019 20:55-0400 BP Systolic 146 mm[Hg] [place] 06-05-2019 20:55-0400 Pulse (Heart Rate) 62 /min [place] 06-05-2019 20:55-0400 Pulse Oximetry 96 % [place] 06-05-2019 20:55-0400 Respiratory Rate 16 /min [place], [place] 06-05-2019 19:47-0400 BMI (Body Mass Index) 45.73 kg/m2 Car[place], [place] 06-05-2019 19:47-0400 Body Temperature 98.6 [degF] [place] 06-05-2019 19:47-0400 Body weight 113.4 kg [place] 06-05-2019 19:47-0400 Height 157.5 cm [place] Encounters Encounter Date Encounter Type Care Provider Facility Start: 05-19-2025 ambulatory Adelfo HERNANDEZ Facil ity:[facility] Start: 05-05-2025 ambulatory Adelfo HERNANDEZ Facil ity:[facility] Start: 03-15-2025 ambulatory Adelfo HERNANDEZ Facil ity:[facility] Start: 01-11-2025 End: 01-11-2025 ambulatory Adelfo HERNANDEZ [facility] Work Phone: Start: 01-11-2025 End: 01-11-2025 Departed Referred Adelfo Dhaliwal -[facility] [place] [facility] [address] Start: 01-11-2025 End: 01-11-2025 ambulatory Adelfo HERNANDEZ Facility:[facility] Start: 12-23-2024 End: 12-23-2024 Emergency department patient visit MAIDA DOSHI Facility:[facility] Start: 07-13-2024 End: 07-13-2024 ambulatory Adelfo HERNANDEZ Facility:[facility] Start: 11-11-2023 End: 11-11-2023 ambulatory [facility] Work Phone: Start: 11-11-2023 End: 11-11-2023 Departed Referred [facility] [place] [facility] [address] Start: 11-03-2023 Registered Referred [facility] [place] [facility] [address] Start: 10-21-2023 End: 10-21-2023 ambulatory [facility] Work Phone: Start: 10-21-2023 End: 10-21-2023 Departed Referred [facility] [place] [facility] [address] Start: 07-15-2023 Registered Referred [facility] [place] [facility] [address] Start: 07-12-2023 End: 07-12-2023 ambulatory [facility] Work Phone: Start: 07-12-2023 End: 07-12-2023 Departed Referred [facility] [address] Start: 06-10-2023 End: 06-10-2023 ambulatory [facility] Work Phone: Start: 06-10-2023 End: 06-10-2023 Departed Referred [facility] [place] [facility] [address] Start: 02-25-2023 End: 02-26-2023 ambulatory PATRICIA HARRIS [facility] Start: 02-25-2023 End: 02-25-2023 Office outpatient new 30 minutes Patricia Harris MD Work Phone: [facility] Comment on above: Lumbar pain (Primary Dx); Lumbar radiculitis; DDD (degenerative disc disease), lumbar Start: 02-25-2023 End: 02-25-2023 Subsequent hospital visit by physician Patricia Harris MD [facility] Comment on above: Lumbar pain Start: 02-14-2023 End: 02-14-2023 ambulatory [facility] Work Phone: Start: 02-14-2023 End: 02-14-2023 Departed Referred [facility] [address] Start: 01-16-2023 End: 01-16-2023 Departed Referred [facility] 100 Start: 01-09-2023 End: 01-09-2023 ambulatory [facility] Work Phone: Start: 01-09-2023 End: 01-09-2023 Departed Referred [facility] 100 Start: 12-10-2022 Telephone encounter López humphriesz DDS Work Phone: [facility] Start: 10-30-2022 End: 10-30-2022 ambulatory [facility] Work Phone: Start: 10-30-2022 End: 10-30-2022 Departed Referred [facility] - [address] Start: 10-01-2022 End: 10-01-2022 ambulatory [facility] Work Phone: Start: 10-01-2022 End: 10-01-2022 Departed Referred [facility] - [address] Start: 06-19-2022 ambulatory LÓPEZ AYALA Facili ty:[facility] Start: 06-19-2022 End: 06-19-2022 Patient encounter procedure López Ayala DDS Work Phone: [facility] Comment on above: 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); Retained tooth root; Chronic periodontitis Start: 04-17-2022 End: 04-24-2022 ambulatory SELF PATIENT Facility:[facility] Start: 12-21-2021 End: 12-21-2021 Departed Referred [facility] - [address] Start: 06-15-2020 End: 06-15-2020 Subsequent hospital visit by physician Maida [facility] Start: 05-12-2020 End: 05-12-2020 Subsequent hospital visit by physician Maida Doshi Work Phone: [facility] Laboratory Comment on above: Abnormal finding of blood chemistry, unspecified ; Other hyperlipidemia; HTN (hypertension), benign; Thyroid nodule Start: 05-06-2020 End: 05-06-2020 Emergency department patient visit Johnny Stone Work Phone: [facility] ED Comment on above: Encounter for staple removal (Primary Dx) Start: 01-20-2020 End: 01-20-2020 Subsequent hospital visit by physician Maida Doshi Work Phone: [facility] Laboratory Comment on above: HTN (hypertension), benign; Diabetes mellitus without complication (HCC) Start: 06-05-2019 End: 06-05-2019 Emergency department patient visit Carla Angel Work Phone: [facility] ED Comment on above: Scalp hematoma, init [...] Blood count complete auto&auto difrntl wbc Maida Cai Work Phone: Start: 05-12-2020 Comprehensive metabo lic panel Maida Cai Work Phone: Start: 05-12-2020 Hemoglobin glycosylated a1c Maida Doshi Work Phone: Start: 05-12-2020 Lipid panel Maida petersi Work Phone: Start: 01-20-2020 Urine albumin quantitative Maida Doshi Work Phone: Start: 01-20-2020 Assay of thyroid stimulating hormone tsh Maida Doshi Work Phone: Start: 01-20-2020 Blood count complete auto&auto difrntl wbc Maida Doshi Work Phone: Start: 01-20-2020 Comprehensive metabo lic panel Maida Cai Work Phone: Start: 01-20-2020 Hemoglobin glycosylated a1c Maida Doshi Work Phone: Start: 01-20-2020 Lipid panel Maida Orellanah nevski Work Phone: Start: 06-05-2019 Ct cervical spine w/ o contrast material Carla Angel Work Phone: Start: 06-05-2019 Ct head/brain w/o co ntrast material Carla Angel Work Phone: Plan of Treatment Date Care Activity Detail Author Start: 04-12-2023 Influenza vaccination Influenza Vaccine (#1) [facility] Start: 12-21-2022 Lipid panel Lipid Profile [facility] Start: 06-23-2022 Hemoglobin A1c measurement Hemoglobin A1C [facility] Start: 05-12-2022 Influenza vaccination Influenza Vaccine (#1) [facility] Start: 01-10-2022 Welcome to Medicare Visit (G0402) Welcome to Medicare Visit (G0402) [facility] Start: 10-28-2021 Thyroid stimulating hormone measurement TSH Level [facility] Start: 05-12-2021 Creatinine measurement [facility] [place] Start: 05-12-2021 Potassium monitoring Potassium monitoring [facility] [place], [place] Start: 05-12-2021 TSH Qn TSH testing [facility], [place] Start: 04-29-2021 Creatinine measurement Creatinine [facility] [place] Start: 04-29-2021 Potassium monitoring Potassium monitoring [facility], [place] Start: 01-19-2021 TSH Qn TSH testing [facility] Start: 11-02-2020 COVID-19 Vaccine (3 - Booster for Pfizer series) COVID-19 Vaccine (3 - Booster for Pfizer series) [facility] Start: 09-28-2020 COVID-19 Vaccine (2 - Pfizer series) COVID-19 Vaccine (2 - Pfizer series) [facility] Start: 05-12-2020 End: 05-12-2020 Office Visit 05/12/2020 Office Visit Family Medicine Maida Doshi MD [address] [place] [id number] [phone] [facility] Start: 04-12-2020 Influenza vaccination [place] Start: 01-01-2020 Creatinine measurement Creatinine monitoring [facility] [place] Start: 01-01-2020 Creatinine monitoring Creatinine monitoring [facility] , [place] Start: 01-01-2020 Potassium monitoring Potassium monitoring [facility], [place] Start: 01-01-2020 TSH Qn TSH testing [facility], [place] Start: 01-01-2020 TSH testing TSH testing [facility], [place] Start: 04-12-2019 Influenza vaccination Flu vaccine (#1) [place] Start: 01-28-2019 Annual Wellness Visit (AWV) Annual Wellness Visit (AWV) [place] Start: 08-29-2018 Pneumococcal 65+ years Vaccine (2 of 2 - PPSV23) Pneumococcal 65+ years Vaccine (2 of 2 - PPSV23) [place] Start: 08-29-2018 Pneumococcal vaccination Pneumococcal Vaccine(s) (65+ yrs) (2 - PPSV23 if available, else PCV20) [facility] Start: 10-24-2017 Pneumococcal vaccination Pneumococcal Vaccine(s) (65+ yrs) (2 - PPSV23 if available, else PCV20) [facility] Start: 10-24-2017 Pneumococcal Vaccine: 65+ Years (2 - PPSV23 if available, else PCV20) Pneumococcal Vaccine: 65+ Years (2 - PPSV23 if available, else PCV20) [facility] Start: 10-31-2000 Screening for osteoporosis Bone Densitometry [facility] Start: 10-31-1985 Shingles (RZV) Vaccine (1 of 2) Shingles (RZV) Vaccine (1 of 2) [facility] Start: 10-31-1985 Shingles Vaccine (1 of 2) Shingles Vaccine (1 of 2) [place] Start: 10-31-1985 Zoster Vaccines (1 of 2) Zoster Vaccines (1 of 2) [facility] Start: 10-31-1954 DTaP/Tdap/Td vaccine (1 - Tdap) DTaP/Tdap/Td vaccine (1 - Tdap) [place] Start: 10-31-1954 DTaP/Tdap/Td Vaccines (1 - Tdap) DTaP/Tdap/Td Vaccines (1 - Tdap) [facility] Start: 10-31-1953 Tetanus + diphtheria + acellular pertussis vaccine (product) [facility] Start: 1947 Depresssion Monitoring Depresssion Monitoring [facility] Start: 1935 Diabetic retinal eye exam Eye Exam [facility] Start: 1935 Lipid panel Lipid Profile [facility] Start: 1935 Urine screening for protein [facility]albumin [facility] Start: 1935 Basic metabolic 2000 panel - Serum or Plasma Basic Metabolic Panel [facility] Start: 1935 Diabetic foot examination Foot Exam [facility] Start: 1935 Screening for osteoporosis Bone Density Scan [facility] Start: 1935 Thyroid stimulating hormone measurement TSH [facility] Immunizations Immunization Date Immunization Notes Care Provider Fa chris 12-21-2021 Hemoglobin A1C López Ayala DDS Work Phone: [facility] 09-07-2020 Pfizer Monovalent (1 2+ yrs) SARS-COV-2 (COVID-19) vaccine, mRNA, spike protein, LNP, pres. free, 30 mcg/0.3mL dose (DUJ=223) López Ayala DDS Work Phone: [facility] 08-17-2020 Pfizer Monovalent (1 2+ yrs) SARS-COV-2 (COVID-19) vaccine, mRNA, spike protein, LNP, pres. free, 30 mcg/0.3mL dose (RJQ=911) López Ayala DDS Work Phone: [facility] 08-29-2017 influenza, high dose seasonal, preservative-free [facility], [place] 08-29-2017 pneumococcal conjuga te vaccine, 13 valent [facility], [place] 08-29-2017 influenza virus vaccine, unspecified formulation López Ayala DDS Work Phone: [facility] 09-19-2016 influenza, injectabl e, quadrivalent, contains preservative [facility], [place] 06-16-2015 influenza virus vaccine, unspecified formulation [facility] Work Phone: 06-16-2015 influenza virus vaccine, whole virus López Ayala DDS Work Phone: [facility] Payers Date Payer Category Payer Self-pay [id number] 2024 Unknown [id number] 2022 Unknown [facility] [facility] [facility] [id number] 2022-Present [phone] [address] [place] [address] Indemnity [id number] 2022 Medicare [id number] 2022 Unknown [id number] 2017 Private Health Insurance [employer] MEDICARE SUPP [id number] 2017-Present [phone] [address] [place] [address] [id number] 2015 Medicare xxxxxxxxxxx [id number] 2015 Medicare [id number] 1935 Unknown [id number] 1935 Unknown [id number] Unknown [id number] Unknown [id number] Unknown [id number] Unknown [id number] Unknown [id number] Social History Date Type Detail Facility Start: 06-05-2019 End: 04-17-2022 Tobacco smoking status NHIS Never smoker [facility] Start: 06-05-2019 End: 07-31-2022 Alcohol intake Current non-drinker of alcohol (finding) [facility] Start: 1935 Sex Assigned At Not on file [facility] [place] Exposure to SARS-CoV -2 (event) Unable to assess [facility] [employer] MARY Start: 05-06-2020 End: 05-12-2020 Tobacco smoking status NHIS Former smoker [facility] Start: 05-06-2020 End: 04-17-2022 Tobacco use and exposure Never used [facility] Start: 02-15-2023 End: 02-25-2023 Exposure to SARS-CoV-2 (event) Not sure [facility] Start: 06-05-2019 End: 07-31-2022 Alcohol intake No [facility] Start: 1935 Sex Assigned At Female [facility] History of tobacco use Current smoker [facility] [employer] Start: 07-31-2022 History of Social function [facility] if ever smoked [facility] Work Phone: Medical Equipment Procedure Code Equipment Code Equipment Origin al Text Equipment Identifier Dates Test daily fasti ng dx Dispense as covered by PT insurance [id number] Start: 01-14-2017 Dx E11.9 TEST ON CE DAILY PATIENT USES PRODIGY [id number] Start: 01-14-2017 Clinical Notes 06-19-2022 to 02-25-2023 Patricia Harris MD - 02/25/2023 9:45 AM EDTTelephone Encounter - Dial, Adilene - 12/10/2022 4:18 PM EDTTelephone Encounter - Dial, Adilene - 12/10/2022 4:18 PM Amanda Palmer - 06/19/2022 9:11 AM EST Note Date & Type Note Facility 02-25-2023 History of Presen t illness Narrative Images from the original note were not included. 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 No significant change in her back pain for 3 years. 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 We recommended continued maintenance of her strength level and continued formal physical therapy. We will go ahead and write an order for her to get formal physical therapy at [facility] for her chronic weakness. Follow-up with neurology for any potential care for her left hemiparesis. Follow up if symptoms worsen or fail to improve, for call our office with any questions at [phone]. Patricia Harris MD 02/25/2023 10:03 AM Please note that portions of this note may have been completed with voice recognition software. Documentation reviewed prior to signing but minor errors in research associate molecular biology may have occurred. documented in this encounter [facility] 12-10-2022 Telephone encounter Note Patient is calling to states she had dentures that Dr Ayala took to have them to realign. Patient states the bottom denture was never returned to her. Patient states the dentures were not made in the clinic. They were made outside of [facility]. When she seen Dr Ayala in June 2022 he performed another mold and she is waiting to pick them up. Pls call pt @ [phone] Thank you [facility] 12-10-2022 Miscellaneous Notes Patient is calling to states she had her dentures made in oral surgery and Dr Ayala took them to realign them and she has never had them returned. Pls call pt @ [phone] Thank you Spoke with patient regarding her dentures. Explained to her that Dr. Ayala does not make dentures. Provided the contact information for [facility] and explained that if these dentures have been made by a [facility] provider, this is the department that will have them, otherwise she will need to see an outside dentist to have dentures made. Patient understood. Titus Ramirez DMD Oral & Maxillofacial Surgery, PGY-3 Team Pager: [phone] The patient called in looking for her [...] about this and can be reached at [phone] Thank You! documented in this encounter [facility] 12-10-2022 Miscellaneous Notes Patient is calling to states she had dentures that Dr Ayala took to have them to realign. Patient states the bottom denture was never returned to her. Patient states the dentures were not made in the clinic. They were made outside of [facility]. When she seen Dr Ayala in June 2022 he performed another mold and she is waiting to pick them up. Pls call pt @ [phone] Thank you Spoke with patient regarding her dentures. Explained to her that Dr. Ayala does not make dentures. Provided the contact information for [facility] and explained that if these dentures have been made by a [facility] provider, this is the department that will have them, otherwise she will need to see an outside dentist to have dentures made. Patient understood. Titus Ramirez DMD Oral & Maxillofacial Surgery, PGY-3 Team Pager: [phone] The patient called in looking for her [...] about this and can be reached at [phone] Thank You! documented in this encounter [facility] 12-10-2022 Telephone encounter Note Spoke with patient regarding her dentures. Explained to her that Dr. Ayala does not make dentures. Provided the contact information for [facility] and explained that if these dentures have been made by a [facility] provider, this is the department that will have them, otherwise she will need to see an outside dentist to have dentures made. Patient understood. Titus Ramirez DMD Oral & Maxillofacial Surgery, PGY-3 Team Pager: [phone] [facility] Work Phone: 12-10-2022 Telephone encounter Note [...] about this and can be reached at [phone] Thank You! T [facility] 06-26-2022 Note I was personally pre sent for the otero portions of the procedure. López Ayala DDS [facility] 06-26-2022 History of Presen t illness Narrative I was personally present for the otero portions of the procedure. López Ayala DDS ORAL SURGERY PROCEDURE ROOM NOTE [facility] Product(s): Routine extraction teeth 2, 4, 5, 8, 9, 10, 11, 12, 14 under local anesthetic. PMH: Reviewed, no change. Antibiotic prophylaxis indicated/taken: not applicable Discussed risks, benefits, and alternatives of treatment. 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 documented in this encounter [facility] 06-19-2022 Note ORAL SURGERY PROCEDU RE ROOM NOTE [facility] Product(s): Routine extraction teeth 2, 4, 5, 8, 9, 10, 11, 12, 14 under local anesthetic. PMH: Reviewed, no change. Antibiotic prophylaxis indicated/taken: not applicable Discussed risks, benefits, and alternatives of treatment. 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 [facility] [phone]. HELPING THE HEALING PROCESS AND STOPPING THE [...] any questions or concerns please contact us: [facility] . Ask for the floral manager bail bondsman (after hours). 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* Diagnosis Lumbar pain Lumbago [facility] Consultation (Routine) - Pending Review Specialty Diagnoses / Procedures Referred By Tish thibodeaux Referred To Contact Physical Therapy Diagnoses Lumbar pain Lumbar radiculitis DDD (degenerative disc disease), lumbar Procedures IN OFFICE/OUTPATIENT [facility] 60-74 MINUTES Patricia Harris MD [address] [place] [address] Referral ID Status Reason Start Date Expiration Date Visits Requested Visits Authorized [id number] Pending Review Specialty Services Required 02/25/2023 02/25/2024 99 99 [facility] (narrative)No reason for referral information [facility] Work Phone: Assessments Diagnosis HTN (hypertension), [...] FoundDocuments on File Type Date Recorded Patient Health Information Manager Expl anation Advance Directives and Living Will Power of Control Room Agent Documents on File Type Date Recorded Patient Health Information Manager Expl anation ACP-Advance Directive ACP-Power of Control Room Agent Latest Code Status on File Code Status Date Activated Date Inactivated Comments Full Code 04/28/2020 2:42 AM 04/30/2020 6:01 PM Discharge Instructions * Attachments The following attachments cannot be sent through Care Everywhere. * Stitches and [place] Removal: General Info (Filipino) documented in this encounter* Attachments The following attachments cannot be sent through Care Everywhere. * Head Injury: Closed: General Info (Filipino) documented in this encounter Summary Purpose Family History No Family History Records FoundNo Family History Records FoundNo Family History Records FoundNo Family History Records FoundNo Family History Records Found Hospital Course Note Hospitalist Discharge Summar y Throughout the encounter I wore an N95 MASK, FACE SHIELD Raudel Ana Maria Ahumada : 1935 Admit date: 04/27/2020 Discharge [...] Visit Chief Complaint LABWORK Chief Complaint LABWORK LONG TERM LABWORK Chief Complaint LABWORK LONG TERM LABWORK LABWORK Chief Complaint LABWORK LABWORK LONG TERM LAB WORK Chief Complaint LONG TERM LAB WOR K LABWORK Chief Complaint LABWORK LABWORK Chief Complaint Admit Date LABWORK January 11, 2025 5:00a m Additional Source Comments Reason for Visit (unrecogniz ed section and content) Reason Comments Suture / Staple Removal Reason Comments Tori evans got caught in a hole and she tripped and fell backwards and hit the back of her head. no loc,no dizziness. small amt bleeding Reason Comments Back Pain Left lower leg INFORMATION SOURCE (unrecogn ized section and content) DATE CREATED AUTHOR 06/16/[address] [facility] DATE CREATED AUTHOR AUTHOR'S ORGANIZ ATION 12/11/2022 [facility] DATE CREATED AUTHOR AUTHOR'S ORGANIZ ATION 02/26/2023 [facility] DATE CREATED AUTHOR AUTHOR'S ORGANIZ ATION 12/24/2024 [facility] DATE CREATED AUTHOR AUTHOR'S ORGANIZ ATION 05/21/2025 [facility] Goals (unrecognized section and content) Goals may [...] HERNANDEZ Attending Provider, Referring Provid er Active Button And Buckle Maker Relationship Specialty Start Date End Date Maida Doshi MD [address] [place] [id number] PCP - General Family Medicine 02/25/23 [employer] Relationship Specialty Start Date End Date Maida Doshi MD [address] [place] [id number] PCP - General Family Medicine 02/25/23 Team [...] BE BASED ON THE PRIMARY CLINICAL RECORDS. [facility] provides no warranty or guarantee of the accuracy or completeness of information in this document.
== END ==
LOC: OLS.ACW100 01:00
PROVIDERS: Referring Provider Family Medicine; Visit Provider Family Medicine
DX: M62.82 Rhabdomyolysis (principal); R55 Syncope and collapse; Z74.1 Need for assistance with personal care; M62.81 Muscle weakness (generalized); R41.841 Cognitive communication deficit; R27.9 Unspecified lack of coordination; E11.9 Type 2 diabetes mellitus without complications
CPT/HCPCS: 87493

== ENCOUNTER → 2025-06-24 | Outpatient (REF) | payer MEDICAID, SELFPAY ==
--- OUTSIDE RECORDS SUMMARY | 2025-06-24 03:48 | XMS RPT_ITS | CCD ---
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 [facility] Care Team Providers Care Vat House Supervisor Name Role Phone Maida Doshi Primary Care Provider Unavailable Primary Care Provider Unavailabl e Unavailable Primary Care Provider Unavailamna e LÓPEZ AYALA Referring Unavailable PROVIDER, UNKNOWN Attending Unavailable PROVIDER, UNKNOWN Admitting Unavailable PATIENT, SELF Referring Unavailable PROVIDER, UNKNOWN Attending Unavailable PROVIDER, UNKNOWN Admitting Unavailable Maida Doshi MD Primary Care Provider [phone] PATRICIA HARRIS Attending Unavailable PATRICIA HARRIS Referring Unavailable DILEEP, MAIDA Primary Care Unavailable DILEEP, MAIDA Primary Care Unavailable PATRICIA HARRIS Attending Unavailable DILEEP, MAIDA Primary Care Unavailable THERESE DINERO Attending Unavailable Adelfo Banks Attending Provider Unavailabl e Adelfo Banks Attending Unavailable Adelfo Banks Referring Unavailable Adelfo Banks Attending Unavailable Adelfo Banks Attending Unavailable Adelfo Banks Attending Unavailable Adelfo Banks Attending Unavailable Adelfo Banks Attending Unavailable Allergies Allergy Classification Reported Allergen(s) Allergy Type Date of Onset Reaction(s) Facility (5 sources) Adhesive Tape Propensity to adverse reactions to drug 5 [place] (5 sources) Penicillins Propensity to adverse reactions to drug 5 [place] (5 sources) Sulfonamides (Antibiotic) Propensity to adverse reactions to drug 5 [place] (1 source) ADHESIVE TAPE-SILICONES; Translations: [ADHESIVE TAPE-SILICONES] Propensity to adverse reactions to drug (disorder) 0 [facility] Other [place] [facility] Medications Current Medications Medication Drug Class(es) [...] 03-27-2021 atorvastatin (LIPITOR) 40 mg tablet B Ktaccbj-Czvpzp-TB (VITAMIN B50 COMPLEX PO) (5 sources) B [...] 03-27-2021 vitamin D2 ergocalciferol (DRISDOL) 1.25 MG (69750 UT) capsule gabapentin 300 mg oral capsule [...] [Need for assistance with personal care] Onset: 06-08-2025 Episodic Anxiety disorders (11 sources) Anxiety; Translations: [...] Onset: 01-22-2025 Episodic Other connective tissue disease (2 sources) Muscle weakness (generalized); Translations: [Muscle weakness (generalized)] Onset: 01-22-2025 Episodic Other nervous system disorders (2 sources) Cognitive communication deficit; 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] Onset: 01-22-2025 Chronic Other nervous system disorders (1 source) Unspecified lack of coordination; Translations: [Unspecified lack of coordination] Onset: 06-08-2025 Episodic Other nutritional; endocrine; and metabolic disorders (10 sources) Morbid obesity; Translations: [Morbid (severe) obesity due to excess calories] Onset: 01-20-2020 01-20-2020 Chronic Other nutritional; endocrine; and metabolic disorders (1 source) Body mass index (BMI) 45.0-49.9, adult; Translations: [Body mass index (BMI) 45.0-49.9, adult ([facility])] Onset: 04-17-2022 Chronic Spondylosis; intervertebral disc disorders; other back problems (3 sources) Degeneration of lumbar intervertebral disc; Translations: [Other intervertebral disc degeneration, lumbar region] Onset: 02-25-2023 02-25-2023 Chronic Spondylosis; intervertebral disc disorders; other back problems (6 sources) Low back pain; Translations: [Lumbar pain] Onset: 02-25-2023 02-22-2023 Episodic Syncope (5 sources) Syncope and collapse; Translations: [Syncope and [...] 01-11-2025 Anion gap [Moles/Vol] 10 mmol/L - [facility] BUN/creatinine ratioOrdered By: Adelfo Dhaliwal on 01-11-2025 Urea nitrogen/Creatinine [Mass ratio] 32.4 mg/mg High 10- [facility] CBC-Complete Blood Cnt No Di ffon 01-11-2025 Erythrocyte distribution width (RBC) [Ratio] 12.4 % Normal 11.6-14.6 [facility] Comment on above: Order Comment: 119-1 Performed By: #### L 100.0500 #### [facility] [address] [place], [address] Hematocrit (Bld) [Volume fraction] 42.8 % Normal 37-47 [facility] Comment on above: Order Comment: 119-1 Performed By: #### L 100.0500 #### [facility] [address] [place], [address] Hemoglobin (Bld) [Mass/Vol] 14.1 g/dL Normal 12.0-15.0 [facility] Comment on above: Order Comment: 119-1 Performed By: #### L 100.0500 #### [facility] [address] [place], [address] MCH (RBC) [Entitic mass] 31.6 pg Normal 27.0-32.0 [facility] Comment on above: Order Comment: 119-1 Performed By: #### L 100.0500 #### [facility] [address] [place], [address] MCHC (RBC) [Mass/Vol] 32.9 g/dL Normal 32-36 [facility] Comment on above: Order Comment: 119-1 Performed By: #### L 100.0500 #### [facility] [address] [place], [address] MCV (RBC) [Entitic vol] 96.0 fL Normal 81-99 [facility] Comment on above: Order Comment: 119-1 Performed By: #### L 100.0500 #### [facility] [address] [place], [address] Platelet mean volume (Bld) [Entitic vol] 9.6 fL Normal 6.2-12.0 [facility] Comment on above: Order Comment: 119-1 Performed By: #### L 100.0500 #### [facility] [address] [place], [address] Platelets (Bld) [#/Vol] 234 10*3/uL Normal 150-450 [facility] Comment on above: Order Comment: 119-1 Performed By: #### L 100.0500 #### [facility] [address] [place], [address] RBC (Bld) [#/Vol] 4.46 10*6/uL Normal 4.2-5.4 [facility] Comment on above: Order Comment: 119-1 Performed By: #### L 100.0500 #### [facility] [address] [place], [address] RDW SD 44.0 fl High 35.1-43.9 [facility] Comment on above: Order Comment: 119-1 Performed By: #### L 100.0500 #### [facility] [address] [place], [address] WBC (Bld) [#/Vol] 8.7 10*3/uL Normal 4.4-11.0 [facility] Comment on above: Order Comment: 119-1 Performed By: #### L 100.0500 #### [facility] [address] [place], [address] Calculated very low density lipoprotein (VLDL) cholesterol measurementOrdered By: Adelfo Dhaliwal on 01-11-2025 Calculated very low density lipoprotein (VLDL) cholesterol measurement 31 mg/dL 5-40 [facility] Carbon dioxide, total [Moles /volume] in Central venous bloodOrdered By: Adelfo Dhaliwal on 01-11-2025 CO2 [Moles/Vol] 26.7 mmol/L 21.0-32.0 [facility] Chloride assayOrdered By: Danielle Dhaliwal on 01-11-2025 Chloride [Moles/Vol] 103 mmol/L 98-108 [facility] Erythrocyte distribution wid th ratioOrdered By: Abelino Underwood on 01-11-2025 Erythrocyte distribution width (RBC) [Ratio] 12.4 % 11.6-14.6 [facility] Erythrocyte distribution wid th standard deviationOrdered By: Abelino Underwood on 01-11-2025 Erythrocyte distribution width (RBC) [Ratio] 44.0 fl High 35.1-43.9 [facility] Glomerular filtration rate ( GFR) estimation/1.73 sq m using serum, plasma, or whole bOrdered By: Adelfo Dhaliwal on 01-11-2025 GFR/1.73 sq M.predicted among non-blacks MDRD (S/P/Bld) [Vol rate/Area] 92 mL/min/{1.73_m2} >60 [facility] Comment on above: mL/min/1.73m2 CKD-EP I Creatinine Equation (2020) Hematocrit Auto (Bld) [Volum e fraction]Ordered By: Abelino Undrewood on 01-11-2025 Hematocrit (Bld) [Volume fraction] 42.8 % 37-47 [facility] Hemoglobin A1c percentageOrd ered By: Adelfo Dhaliwal on 01-11-2025 HbA1c (Bld) [Mass fraction] 8.0 % High <5.7 [facility] Comment on above: Normal < 5.7 % Predi abetic 5.7 - 6.4 % Diabetic >or= 6.5 % Please note range changes. Hemoglobin measurementOrdere d By: Abelino Underwood on 01-11-2025 Hemoglobin (Bld) [Mass/Vol] 14.1 g/dL 12.0-15.0 [facility] LDL calc ser/plasOrdered By: Adelfo Dhaliwal on 01-11-2025 Cholesterol in LDL [Mass/Vol] 169 mg/dL [facility] Comment on above: Arrrfslxlf=711-926 m g/dL & Higher Dddn=327 mg/dL or greater MCV (mean corpuscular volume ) determinationOrdered By: Abelino Underwood on 01-11-2025 MCV (RBC) [Entitic vol] 96.0 fL 81-99 [facility] Magnesium measurement (mass/ volume)Ordered By: Adelfo Dhaliwal on 01-11-2025 Magnesium (Unsp spec) [Mass/Vol] 1.9 mg/dL 1.5-2.2 [facility] Mean corpuscular hemoglobin (MCH) determinationOrdered By: Ableino Underwood on 01-11-2025 MCH (RBC) [Entitic mass] 31.6 pg 27.0-32.0 [facility] Mean corpuscular hemoglobin concentration (MCHC) determinationOrdered By: Abelino Underwood on 01-11-2025 MCHC (RBC) [Mass/Vol] 32.9 g/dL 32-36 [facility] Mean platelet volume determi nationOrdered By: Abelino Underwood on 01-11-2025 Platelet mean volume (Bld) [Entitic vol] 9.6 fL 6.2-12.0 [facility] Platelet countOrdered By: Raphael Barnes on 01-11-2025 Platelets (Bld) [#/Vol] 234 10*3/uL 150-450 [facility] Potassium measurement (mass/ volume)Ordered By: Adelfo Dhaliwal on 01-11-2025 Potassium (Unsp spec) [Mass/Vol] 4.2 mmol/L 3.3-5.1 [facility] RBC Auto (Bld) [#/Vol]Ordere d By: Abelino Underwood on 01-11-2025 RBC (Bld) [#/Vol] 4.46 10*6/uL 4.2-5.4 [facility] Screening total cholesterol/ high density lipoprotein (HDL) cholesterol ratioOrdered By: Adelfo Dhaliwal on 01-11-2025 Cholesterol.total/Choles terol in HDL [Mass ratio] 5.68 {ratio} [facility] Serum creatinine measurement (mass/volume)Ordered By: Adelfo Dhaliwal on 01-11-2025 Creatinine [Mass/Vol] 0.45 mg/dL Low 0.70-1.20 [facility] Serum glucose measurement (m ass/volume)Ordered By: Adelfo Dhaliwal on 01-11-2025 Glucose [Mass/Vol] 143 mg/dL High 70-99 [facility] Serum or plasma calcium ivette urement (mass/volume)Ordered By: Adelfo Dhaliwal on 01-11-2025 Calcium [Mass/Vol] 9.7 mg/dL 7.6-11.0 [facility] Serum or plasma cholesterol in HDL measurement (mass/volume)Ordered By: Adelfo Dhaliwal on 01-11-2025 Cholesterol in HDL [Mass/Vol] 43 mg/dL >40 [facility] Comment on above: National Cholesterol Education Program (NCEP) guidelines:<40 mg/dL: Low HDL-cholesterol (major risk factor for CHD)>= 60 mg/dL: High HDL-cholesterol (negative risk factor for CHD)HDL-cholesterol is affected by a number of factors, e.g. smoking, exercise, hormones, sex and age. Serum or plasma cholesterol measurement (mass/volume)Ordered By: Adelfo Dhaliwal on 01-11-2025 Cholesterol [Mass/Vol] 243 mg/dL High <201 [facility] Comment on above: Cholesterol level, D esirable <200 mg/dLBorderline high cholesterol 200-239 mg/dLHigh cholesterol >=240 mg/dLRecommendations of the NCEP Adult Treatment Panel for the following risk-cutoff thresholds for the [place] population. Serum or plasma triiodothyro nine (T3) measurement (mass/volume)Ordered By: Adelfo Dhaliwal on 01-11-2025 T3 [Mass/Vol] 0.70 ng/mL Low 0.80-2.00 [facility] Serum or plasma urea nitroge n measurement (mass/volume)Ordered By: Adelfo Dhaliwal on 01-11-2025 Urea nitrogen [Mass/Vol] 15 mg/dL 4-19 [facility] Sodium levelOrdered By: Tahir Dhaliwal on 01-11-2025 Sodium [Moles/Vol] 139 mmol/L 133-145 [facility] TSH DL <= 0.005 mIU/L QnOrde red By: Adelfo Dhaliwal on 01-11-2025 TSH Qn 2.080 uIU/mL 0.300-4.200 [facility] ThyroxineOrdered By: Adelfo Dhaliwal on 01-11-2025 T4 [Mass/Vol] 6.7 ug/dL 4.8-13.9 [facility] Triglycerides measurementOrd ered By: Adelfo Dhaliwal on 01-11-2025 Triglyceride [Mass/Vol] 154 mg/dL <199 [facility] Comment on above: The drugs N-Acetylcy steine and Metamizole may falsely depress this assay. Normal range: <150 mg/dLBorderline High: 150-199 mg/dLHigh: 200-499 mg/dLVery High: >500 mg/dL White blood cell (WBC) count Ordered By: Abelino Underwood on 01-11-2025 WBC (Bld) [#/Vol] 8.7 10*3/uL 4.4-11.0 [facility] CBC W Auto Differential pane l (Bld)on 12-23-2024 Basophils (Bld) [#/Vol] 0.05 10*3/uL Normal <0.11 [facility] Comment on above: Order Comment: Speci men Type: BLOOD SPECIMEN Ordering Facility: [facility] Address: [address] [place] [address] Performed By: #### 5 7021-8 #### [facility] CLIA [id number] [address] [place] Basophils/100 WBC (Bld) 0.5 % Normal [facility] Comment on above: Order Comment: Speci men Type: BLOOD SPECIMEN Ordering Facility: [facility] Address: [address] [place] [address] Performed By: #### 5 7021-8 #### [facility] CLIA [id number] [address] Differential cell count method Nom (Bld) Auto Normal [facility] Comment on above: Order Comment: Speci men Type: BLOOD SPECIMEN Ordering Facility: [facility] Address: [address] [place] [address] Performed By: #### 5 7021-8 #### [facility] CLIA [id number] [address] [place] [address] [place] Eosinophils (Bld) [#/Vol] 0.27 10*3/uL Normal <0.46 [facility] Comment on above: Order Comment: Speci men Type: BLOOD SPECIMEN Ordering Facility: [facility] Address: [address] [place] [address] Performed By: #### 5 7021-8 #### [facility] CLIA [id number] [address] [place] [address] [place] Eosinophils/100 WBC (Bld) 2.9 % Normal [facility] Comment on above: Order Comment: Speci men Type: BLOOD SPECIMEN Ordering Facility: [facility] Address: [facility] [place] [address] Performed By: #### 5 7021-8 #### [facility] CLIA [id number] [address] [place] [address] [place] Erythrocyte distribution width (RBC) [Ratio] 12.9 % Normal 11.5-15.0 [facility] Comment on above: Order Comment: Speci men Type: BLOOD SPECIMEN Ordering Facility: [facility] Address: [address] [place] [address] Performed By: #### 5 7021-8 #### [facility] CLIA [id number] [address] [place] Hematocrit (Bld) [Volume fraction] 43.7 % Normal 36.0-46.0 [facility] Comment on above: Order Comment: Speci men Type: BLOOD SPECIMEN Ordering Facility: [facility] Address: [address] [place] [address] Performed By: #### 5 7021-8 #### [facility] CLIA [id number] [address] [place] [address] [place] Hemoglobin (Bld) [Mass/Vol] 14.3 g/dL Normal 11.5-15.5 [facility] Comment on above: Order Comment: Speci men Type: BLOOD SPECIMEN Ordering Facility: [facility] Address: [address] [place] [address] Performed By: #### 5 7021-8 #### [facility] CLIA [id number] [address] [place] Immature granulocytes (Bld) [#/Vol] 0.04 10*3/uL Normal <0.10 [facility] Comment on above: Order Comment: Speci men Type: BLOOD SPECIMEN Ordering Facility: [facility] Address: [address] [place] [address] Performed By: #### 5 7021-8 #### [facility] CLIA [id number] [address] [place] [address] [place] Immature granulocytes/100 WBC (Bld) 0.4 % Normal [facility] Comment on above: Order Comment: Speci men Type: BLOOD SPECIMEN Ordering Facility: [facility] Address: [address] [place] [address] Performed By: #### 5 7021-8 #### [facility] CLIA [id number] [address] [place] Lymphocytes (Bld) [#/Vol] 3.54 10*3/uL Normal 1.00-4.00 [facility] Comment on above: Order Comment: Speci men Type: BLOOD SPECIMEN Ordering Facility: [facility] Address: [address] [place] [address] Performed By: #### 5 7021-8 #### [facility] CLIA [id number] [address] Lymphocytes/100 WBC (Bld) 38.6 % Normal [facility] Comment on above: Order Comment: Speci men Type: BLOOD SPECIMEN Ordering Facility: [facility] Address: [address] [place] [address] Performed By: #### 5 7021-8 #### [facility] CLIA [id number] [address] MCH (RBC) [Entitic mass] 31.4 pg Normal 26.0-34.0 [facility] Comment on above: Order Comment: Speci men Type: BLOOD SPECIMEN Ordering Facility: [facility] Address: [address] [place] [address] Performed By: #### 5 7021-8 #### [facility] CLIA [id number] [address] [place] [facility] MCHC (RBC) [Mass/Vol] 32.7 g/dL Normal 30.5-36.0 [facility] Comment on above: Order Comment: Speci men Type: BLOOD SPECIMEN Ordering Facility: [facility] Address: [address] [place] [address] Performed By: #### 5 7021-8 #### [facility] CLIA [id number] [address] [place] [address] [place] MCV (RBC) [Entitic vol] 96.0 fL Normal 80.0-100.0 [facility] Comment on above: Order Comment: Speci men Type: BLOOD SPECIMEN Ordering Facility: [facility] Address: [facility] [place] [address] Performed By: #### 5 7021-8 #### [facility] CLIA [id number] [address] [place] [address] [place] Monocytes (Bld) [#/Vol] 0.59 10*3/uL Normal <0.87 [facility] Comment on above: Order Comment: Speci men Type: BLOOD SPECIMEN Ordering Facility: [facility] Address: [address] [place] [address] Performed By: #### 5 7021-8 #### [facility] CLIA [id number] [address] Monocytes/100 WBC (Bld) 6.4 % Normal [facility] Comment on above: Order Comment: Speci men Type: BLOOD SPECIMEN Ordering Facility: [facility] Address: [address] [place] [address] Performed By: #### 5 7021-8 #### [facility] CLIA [id number] [address] [place] [address] [place] Neutrophils (Bld) [#/Vol] 4.68 10*3/uL Normal 1.45-7.50 [facility] Comment on above: Order Comment: Speci men Type: BLOOD SPECIMEN Ordering Facility: [facility] Address: [address] [place] [address] Performed By: #### 5 7021-8 #### [facility] CLIA [id number] [address] [place] [address] [place] Neutrophils/100 WBC (Bld) 51.2 % Normal [facility] Comment on above: Order Comment: Speci men Type: BLOOD SPECIMEN Ordering Facility: [facility] Address: [address] [place] [address] Performed By: #### 5 7021-8 #### [facility] CLIA [id number] [address] [place] [address] [place] Nucleated RBC (Bld) [#/Vol] 10*3/uL Normal <0.01 [facility] Comment on above: Order Comment: Speci men Type: BLOOD SPECIMEN Ordering Facility: [facility] Address: [address] [place] [address] Performed By: #### 5 7021-8 #### [facility] CLIA [id number] [address] [place] [address] [place] Nucleated RBC/100 WBC (Bld) [Ratio] 0.0 /100 WBC Normal [facility] Comment on above: Order Comment: Speci men Type: BLOOD SPECIMEN Ordering Facility: [facility] Address: [address] [place] [address] Performed By: #### 5 7021-8 #### [facility] CLIA [id number] [address] [place] [address] [place] Platelet mean volume (Bld) [Entitic vol] 9.8 fL Normal 9.0-12.7 [facility] Comment on above: Order Comment: Speci men Type: BLOOD SPECIMEN Ordering Facility: [facility] Address: [address] [place] [address] Performed By: #### 5 7021-8 #### [facility] CLIA [id number] [address] [place] [address] [place] Platelets (Bld) [#/Vol] 255 10*3/uL Normal 150-400 [facility] Comment on above: Order Comment: Speci men Type: BLOOD SPECIMEN Ordering Facility: [facility] Address: [address] [place] [address] Performed By: #### 5 7021-8 #### [facility] CLIA [id number] [address] [place] [address] [place] RBC (Bld) [#/Vol] 4.55 10*6/uL Normal 3.90-5.20 [facility] Comment on above: Order Comment: Speci men Type: BLOOD SPECIMEN Ordering Facility: [facility] Address: [address] [place] [address] Performed By: #### 5 7021-8 #### [facility] CLIA [id number] [address] [place] [address] [place] [facility] [place] WBC (Bld) [#/Vol] 9.17 10*3/uL Normal 3.70-11.00 [facility] Comment on above: Order Comment: Speci men Type: BLOOD SPECIMEN Ordering Facility: [facility] Address: [address] [place] [address] Performed By: #### 5 7021-8 #### [facility] CLIA [id number] [address] [place] [address] [place] [facility] [place] Comprehensive metabolic 2000 panelon 12-23-2024 Albumin [Mass/Vol] 3.7 g/dL Low 3.9-4.9 [facility] Comment on above: Order Comment: Speci men Type: BLOOD SPECIMEN Ordering Facility: [facility] Address: [address] [place] [address] Performed By: #### 2 4323-8, 3040-3 #### [facility] CLIA [id number] [address] [place] ALP [Catalytic activity/Vol] 86 U/L Normal 34-123 [facility] Comment on above: Order Comment: Speci men Type: BLOOD SPECIMEN Ordering Facility: [facility] Address: [address] [place] [address] Performed By: #### 2 4323-8, 3040-3 #### [facility] CLIA [id number] [address] ALT [Catalytic activity/Vol] 9 U/L Normal 7-38 [facility] Comment on above: Order Comment: Speci men Type: BLOOD SPECIMEN Ordering Facility: [facility] Address: [address] [place] [address] Performed By: #### 2 4323-8, 3040-3 #### [facility] CLIA [id number] [address] Anion gap [Moles/Vol] 8 mmol/L Normal 8-15 [facility] Comment on above: Order Comment: Speci men Type: BLOOD SPECIMEN Ordering Facility: [facility] Address: [address] [place] [address] Performed By: #### 2 4323-8, 3040-3 #### [facility] CLIA [id number] [address] [place] [address] [place] AST [Catalytic activity/Vol] 12 U/L Low 13-35 [facility] Comment on above: Order Comment: Speci men Type: BLOOD SPECIMEN Ordering Facility: [facility] Address: [address] [place] [address] Performed By: #### 2 4323-8, 0-3 #### [facility] CLIA [id number] [address] [place] [address] [place] Bilirubin [Mass/Vol] 0.7 mg/dL Normal 0.2-1.3 [facility] Comment on above: Order Comment: Speci men Type: BLOOD SPECIMEN Ordering Facility: [facility] Address: [address] [place] [address] Performed By: #### 2 4323-8, 0-3 #### [facility] CLIA [id number] [address] [place] [address] [place] Calcium [Mass/Vol] 9.7 mg/dL Normal 8.5-10.2 [facility] Comment on above: Order Comment: Speci men Type: BLOOD SPECIMEN Ordering Facility: [facility] Address: [address] [place] [address] Performed By: #### 2 4323-8, 0-3 #### [facility] CLIA [id number] [address] [place] [address] [place] Chloride [Moles/Vol] 103 mmol/L Normal 98-107 [facility] Comment on above: Order Comment: Speci men Type: BLOOD SPECIMEN Ordering Facility: [facility] Address: [address] [place] [address] Performed By: #### 2 4323-8, 3040-3 #### [facility] CLIA [id number] [address] [place] [address] [place] CO2 [Moles/Vol] 30 mmol/L Normal 22-30 [facility] Comment on above: Order Comment: Speci men Type: BLOOD SPECIMEN Ordering Facility: [facility] Address: [address] [place] [address] Performed By: #### 2 4323-8, 3040-3 #### [facility] CLIA [id number] [address] [place] [address] [place] Creatinine [Mass/Vol] 0.47 mg/dL Low 0.58-0.96 [facility] Comment on above: Order Comment: Jose garcia Type: BLOOD SPECIMEN Ordering Facility: [facility] Address: [address] [place] [address] Performed By: #### 2 4323-8, 3040-3 #### [facility] CLIA [id number] [address] Creatinine and Glomerular filtration rate.predicted panel (S/P/Bld) 91 mL/min/1.73m??? Normal >=60 [facility] Comment on above: Order Comment: Jose garcia Type: BLOOD SPECIMEN Ordering Facility: [facility] Address: [address] [place] [address] Result Comment: Lisa mated Glomerular Filtration Rate [...] Performed By: #### 2 4323-8, 3040-3 #### [facility] CLIA [id number] [address] [place] Glucose [Mass/Vol] 161 mg/dL High 74-99 [facility] Comment on above: Order Comment: Jose garcia Type: BLOOD SPECIMEN Ordering Facility: [facility] Address: [address] [place] [address] Result Comment: The [place] [employer] (ADA) provides guidance for cutoff [...] Standards of Medical Care in Diabetes 2016, [place] [employer]. Diabetes Care. 2016.39(Suppl 1). Performed By: #### 2 4323-8, 3040-3 #### [facility] CLIA [id number] [address] [place] [address] [place] Potassium [Moles/Vol] 4.5 mmol/L Normal 3.7-5.1 [facility] Comment on above: Order Comment: Jose garcia Type: BLOOD SPECIMEN Ordering Facility: [facility] Address: [address] [place] [address] Performed By: #### 2 4323-8, 0-3 #### [facility] CLIA [id number] [address] [place] [address] [place] Protein [Mass/Vol] 6.5 g/dL Normal 6.3-8.0 [facility] Comment on above: Order Comment: Jose agrcia Type: BLOOD SPECIMEN Ordering Facility: [facility] Address: [address] [place] [address] Performed By: #### 2 4323-8, 0-3 #### [facility] CLIA [id number] [address] [place] [address] [place] Sodium [Moles/Vol] 141 mmol/L Normal 136-144 [facility] Comment on above: Order Comment: Jose garcia Type: BLOOD SPECIMEN Ordering Facility: [facility] Address: [address] [place] [address] Performed By: #### 2 4323-8, 0-3 #### [facility] CLIA [id number] [address] [place] [address] [place] Urea nitrogen [Mass/Vol] 15 mg/dL Normal 7-21 [facility] Comment on above: Order Comment: Jose garcia Type: BLOOD SPECIMEN Ordering Facility: [facility] Address: [address] [place] [address] Performed By: #### 2 4323-8, 0-3 #### [facility] CLIA [id number] [address] [place] [address] [place] Albumin [Mass/Vol] 3.7 g/dL Low 3.9-4.9 [facility] Comment on above: Order Comment: Speci men Type: BLOOD SPECIMEN Ordering Facility: [facility] Address: [address] [place] [address] Performed By: #### 1 9123-9, 59190-2 #### [facility] CLIA [id number] [address] [place] [address] [place] ALP [Catalytic activity/Vol] Normal [facility] Comment on above: Order Comment: Speci men Type: BLOOD SPECIMEN Ordering Facility: [facility] Address: [address] [place] [address] Result Comment: Unab le to assay due to interference from hemolysis. Suggest reorder as clinically indicated. Performed By: #### 1 9123-9, 84574-3 #### [facility] CLIA [id number] [address] ALT [Catalytic activity/Vol] Normal [facility] Comment on above: Order Comment: Speci men Type: BLOOD SPECIMEN Ordering Facility: [facility] Address: [address] [place] [address] Result Comment: Unab le to assay due to interference from hemolysis. Suggest reorder as clinically indicated. Performed By: #### 1 9123-9, 25889-6 #### [facility] CLIA [id number] [address] STATES [facility] Anion gap [Moles/Vol] Normal [facility] Comment on above: Order Comment: Speci men Type: BLOOD SPECIMEN Ordering Facility: [facility] Address: [address] [place] [address] Result Comment: Unab le to calculate due to hemolysis. Performed By: #### 1 9123-9, 77989-5 #### [facility] CLIA [id number] [address] [place] AST [Catalytic activity/Vol] [facility] Comment on above: Order Comment: Speci men Type: BLOOD SPECIMEN Ordering Facility: [facility] Address: [address] [place] [address] Result Comment: Unab le to assay due to interference from hemolysis. Suggest reorder as clinically indicated. Performed By: #### 1 23-9, 42137-6 #### [facility] CLIA [id number] [address] [place] [address] [place] Bilirubin [Mass/Vol] 0.6 mg/dL Normal 0.2-1.3 [facility] Comment on above: Order Comment: Speci men Type: BLOOD SPECIMEN Ordering Facility: [facility] Address: [address] [place] [address] Performed By: #### 1 9, 76816-7 #### [facility] CLIA [id number] [address] [place] [address] [place] Calcium [Mass/Vol] 9.8 mg/dL Normal 8.5-10.2 [facility] Comment on above: Order Comment: Speci men Type: BLOOD SPECIMEN Ordering Facility: [facility] Address: [address] [place] [address] Performed By: #### 1 9, 52538-9 #### [facility] CLIA [id number] [address] [place] [address] [place] Chloride [Moles/Vol] 100 mmol/L Normal 98-107 [facility] Comment on above: Order Comment: Speci men Type: BLOOD SPECIMEN Ordering Facility: [facility] Address: [address] [place] [address] Performed By: #### 1 9, 56737-2 #### [facility] CLIA [id number] [address] [place] [address] [place] CO2 [Moles/Vol] Normal [facility] Comment on above: Order Comment: Speci men Type: BLOOD SPECIMEN Ordering Facility: [facility] Address: [address] [place] [address] Result Comment: Unab le to assay due to interference from hemolysis. Suggest reorder as clinically indicated. Performed By: #### 1 23-9, 11379-3 #### [facility] CLIA [id number] [address] [place] [address] [place] Creatinine [Mass/Vol] 0.35 mg/dL Low 0.58-0.96 [facility] Comment on above: Order Comment: Jose garcia Type: BLOOD SPECIMEN Ordering Facility: [facility] Address: [address] [place] [address] Performed By: #### 1 9123-9, 89478-9 #### [facility] CLIA [id number] [address] [place] [address] [place] Creatinine and Glomerular filtration rate.predicted panel (S/P/Bld) 98 mL/min/1.73m??? Normal >=60 [facility] Comment on above: Order Comment: Jose garcia Type: BLOOD SPECIMEN Ordering Facility: [facility] Address: [address] [place] [address] Result Comment: Lisa mated Glomerular Filtration Rate [...] actual GFR. Performed By: #### 1 9123-9, 10352-4 #### [facility] CLIA [id number] [address] [place] [address] [place] Glucose [Mass/Vol] 150 mg/dL High 74-99 [facility] Comment on above: Order Comment: Jose garcia Type: BLOOD SPECIMEN Ordering Facility: [facility] Address: [address] [place] [address] Result Comment: The [place] [employer] (ADA) provides guidance for cutoff [...] Standards of Medical Care in Diabetes 2016, [place] [employer]. Diabetes Care. 2016.39(Suppl 1). Performed By: #### 1 23-9, 66706-0 #### [facility] CLIA [id number] [address] [place] [address] [place] Potassium [Moles/Vol] Normal [facility] Comment on above: Order Comment: Speci men Type: BLOOD SPECIMEN Ordering Facility: [facility] Address: [address] [place] [address] Result Comment: Unab le to assay due to interference from hemolysis. Suggest reorder as clinically indicated. Performed By: #### 1 23-9, 31563-2 #### [facility] CLIA [id number] [address] [place] [address] [place] Protein [Mass/Vol] Normal [facility] Comment on above: Order Comment: Speci men Type: BLOOD SPECIMEN Ordering Facility: [facility] Address: [address] [place] [address] Result Comment: Unab le to assay due to interference from hemolysis. Suggest reorder as clinically indicated. Performed By: #### 1 23-9, 19029-1 #### [facility] CLIA [id number] [address] [place] [address] [place] Sodium [Moles/Vol] 135 mmol/L Low 136-144 [facility] Comment on above: Order Comment: Speci men Type: BLOOD SPECIMEN Ordering Facility: [facility] Address: [address] [place] [address] Performed By: #### 1 23-9, 29429-0 #### [facility] CLIA [id number] [address] [place] [address] [place] Urea nitrogen [Mass/Vol] 16 mg/dL Normal 7-21 [facility] Comment on above: Order Comment: Taii men Type: BLOOD SPECIMEN Ordering Facility: [facility] Address: [address] [place] [address] Performed By: #### 1 23-9, 64132-3 #### [facility] CLIA [id number] [address] [place] [address] [place] ED NOTEon 12-23-2024 ED NOTE HNO ID: [id number] Author: THERESE ZAVALA RN Service: Nursing Author Type: Registered Nurse Type: ED Notes Filed: 12/23/2024 12:59 Note Text: Report given to MMT transport at bedside. [facility] ED NOTE HNO ID: [id number] Author: THERESE ZAVALA RN Service: Nursing Author Type: Registered Nurse Type: ED Notes Filed: 12/23/2024 12:21 Note Text: Report called to nursing facility by this RN. [facility] ED NOTE HNO ID: [id number] Author: MILEY KABA, NINFA Service: ? Author Type: Registered Nurse Type: ED Notes Filed: 12/23/2024 06:17 Note Text: Pt incontinent of large amount of urine. Pt cleaned up and external catheter placed. [facility] ED PROGRESS NOTE (PROVIDER)o n 12-23-2024 ED PROGRESS NOTE (PROVIDER) HNO ID: [id number] Author: THERESE DINERO DO Service: Emergency Medicine [...] TIME: 8:37 AM PAGER/CONTACT #: [facility] ED PROV NOTEon 12-23-2024 ED PROV NOTE HNO ID: [id number] Author: CAMERON NEVAREZ DO Service: Emergency Medicine Author Type: Physician Type: ED Provider Notes Filed: 12/23/2024 06:17 Note Text: ED Provider Note Patient Name: Raudel Ahumada : 1935 SERVICE DATE: 12/23/24 History Patient presents with: Altered Level Of Consciousness: Pt BIB EMS from [facility]. Per EMS the [facility] staff was unable to wake her this [...] changes in stool. History provided by: Patient diplomatic interpreter/translator used: No PAST MEDICAL HISTORY Diagnosis Date [...] / Clinical Impression ED Course as of 12/23/24627 Cameron Nevarez's Documentation SatDecember 23, 2024 0627 CBC unremarkable Clinical Impressions as of 12/23/24 0628 Uncontrolled type 2 diabetes mellitus with hyperglycemia (HCC) Essential hypertension (more content not included)... Normal [facility] Lipase SerPl-cCncon 12-24-19 25 Lipase [Catalytic activity/Vol] 10 U/L Low 16-61 [facility] Comment on above: Order Comment: Speci men Type: BLOOD SPECIMENOrdering Facility: [facility] Address: [address] [place] [address] Performed By: #### 2 4323-8, 3040-3 ####[facility] [id number] [address] [place] Magnesium SerPl-mCncon 12-23 Magnesium [Mass/Vol] 2.0 mg/dL Normal 1.7-2.3 [facility] Comment on above: Order Comment: Speci men Type: BLOOD SPECIMEN Ordering Facility: [facility] Address: [address] [place] [address] Performed By: #### 1 9123-9, 77999-4 #### [facility] CLIA [id number] [address] Urinalysis complete panel (U )on 12-23-2024 Bacteria LM.HPF (Urine sed) [#/Area] Rare Abnormal None Seen [facility] Comment on above: Order Comment: Speci men Type: URINE SPECIMEN Ordering Facility: [facility] Address: [address] [place] [address] Performed By: #### 2 4356-8 #### [facility] CLIA [id number] [address] Bilirubin Ql (U) Negative Normal Negative [facility] Comment on above: Order Comment: Speci men Type: URINE SPECIMEN Ordering Facility: [facility] Address: [address] [place] [address] Performed By: #### 2 4356-8 #### [facility] CLIA [id number] [address] [place] Clarity (Unsp spec) Clear Normal Clear [facility] Comment on above: Order Comment: Speci men Type: URINE SPECIMEN Ordering Facility: [facility] Address: [address] [place] [address] Performed By: #### 2 4356-8 #### [facility] CLIA [id number] [address] [place] Color (U) Yellow Normal Yellow [facility] Comment on above: Order Comment: Speci men Type: URINE SPECIMEN Ordering Facility: [facility] Address: [address] [place] [address] Performed By: #### 2 4356-8 #### [facility] CLIA [id number] [address] [place] [address] [place] Epithelial cells LM.HPF (Urine sed) [#/Area] Few Normal [facility] Comment on above: Order Comment: Speci men Type: URINE SPECIMEN Ordering Facility: [facility] Address: [address] [place] [address] Performed By: #### 2 4356-8 #### [facility] CLIA [id number] [address] [place] Glucose Test strip (U) [Mass/Vol] Negative Normal Negative [facility] Comment on above: Order Comment: Speci men Type: URINE SPECIMEN Ordering Facility: [facility] Address: [address] [place] [address] Performed By: #### 2 4356-8 #### [facility] CLIA [id number] [address] [place] [address] [place] Hemoglobin Ql (U) Negative Normal Negative [facility] Comment on above: Order Comment: Speci men Type: URINE SPECIMEN Ordering Facility: [facility] Address: [address] [place] [address] Performed By: #### 2 4356-8 #### [facility] CLIA [id number] [address] [place] [address] [place] Ketones Ql (U) Negative Normal Negative [facility] Comment on above: Order Comment: Speci men Type: URINE SPECIMEN Ordering Facility: [facility] Address: [address] [place] [address] Performed By: #### 2 4356-8 #### [facility] CLIA [id number] [address] [place] [address] [place] [facility] [place] Leukocyte esterase Test strip Ql (U) Negative Normal Negative [facility] Comment on above: Order Comment: Speci men Type: URINE SPECIMEN Ordering Facility: [facility] Address: [address] [place] [address] Performed By: #### 2 4356-8 #### [facility] CLIA [id number] [address] [place] [address] [place] Nitrite Ql (U) Negative Normal Negative [facility] Comment on above: Order Comment: Speci men Type: URINE SPECIMEN Ordering Facility: [facility] Address: [address] [place] [address] Performed By: #### 2 4356-8 #### [facility] CLIA [id number] [address] [place] [address] [place] pH (U) 7.0 [pH] Normal 5.0-8.0 [facility] Comment on above: Order Comment: Speci men Type: URINE SPECIMEN Ordering Facility: [facility] Address: [address] [place] [address] Performed By: #### 2 4356-8 #### [facility] CLIA [id number] [address] [place] [address] [place] Protein (U) [Mass/Vol] Negative Normal Negative [facility] Comment on above: Order Comment: Speci men Type: URINE SPECIMEN Ordering Facility: [facility] Address: [address] [place] [address] Performed By: #### 2 4356-8 #### [facility] CLIA [id number] [address] [place] [address] [place] RBC LM.HPF (Urine sed) [#/Area] 0-3 /HPF Normal 0-3 /HPF [facility] Comment on above: Order Comment: Speci men Type: URINE SPECIMEN Ordering Facility: [facility] Address: [address] [place] [address] Performed By: #### 2 4356-8 #### [facility] CLIA [id number] [address] [place] [address] [place] Specific gravity (U) [Rel density] 1.015 Normal 1.005-1.030 [facility] Comment on above: Order Comment: Speci men Type: URINE SPECIMEN Ordering Facility: [facility] Address: [address] [place] [address] Performed By: #### 2 4356-8 #### [facility] CLIA [id number] [address] [place] Urobilinogen Ql (U) 0.2 EU/dL Normal 0.2-1.0 EU/dL [facility] Comment on above: Order Comment: Speci men Type: URINE SPECIMEN Ordering Facility: [facility] Address: [address] [place] [address] Performed By: #### 2 4356-8 #### [facility] CLIA [id number] [address] WBC LM.HPF (Urine sed) [#/Area] 0-5 /HPF Normal 0-5 /HPF [facility] Comment on above: Order Comment: Speci men Type: URINE SPECIMEN Ordering Facility: [facility] Address: [address] [place] [address] Performed By: #### 2 4356-8 #### [facility] CLIA [id number] [address] [place] Basophil percentageOrdered B y: Adelfo Dhaliwal on 11-11-2023 Cholesterol [Mass/Vol] 224 mg/dL <200 [facility] Comment on above: <200 mg/dL Desirable 200-240 mg/dL Borderline >240 mg/dL High Risk Triglyceride [Mass/Vol] 194 mg/dL <199 [facility] Comment on above: The drugs N-Acetylcy steine and Metamizole may falsely depress this assay.Serum Triglycerides Reference Interval Normal <150 mg/dL Borderline high 150 - 199 mg/dL High 200 - 499 mg/dL Very High > or = 500 mg/dL Laboratory - Chemistry and C hemistry - challengeOrdered By: Adelfo Dhaliwal on 11-11-2023 Cholesterol in HDL [Mass/Vol] 50 mg/dL >40 [facility] Comment on above: The drugs N-Acetylcy steine and Metamizole may falsely depress this assay. Reference Range HDL <40 mg/dL Low HDL Cholesterol HDL >or= 60 mg/dL High HDL Cholesterol Cholesterol in LDL [Mass/Vol] 135 mg/dL 0-130 [facility] No Panel InformationOrdered By: Adelfo Dhaliwal on 11-11-2023 VLDL Cholesterol 39 mg/dL 5-40 [facility] FLUAV H1+H3+FLUBV RNA CINTHIA+pr obe Ql (Unsp spec)Ordered By: Adelfo Dhaliwal on 11-03-2023 Influenza Types A & B (PCR) Influenzae A [facility] Basophil percentageOrdered B y: Adelfo Dhaliwal on 10-21-2023 Chloride [Moles/Vol] 107 mmol/L 98-107 [facility] Glucose [Mass/Vol] 133 mg/dL 74-106 [facility] Comment on above: Fasting Glucose resu lt greater than or equal to 126 mg/dL suggests DIABETES MELLITUS per A.D.A. criteria. Hemoglobin (Bld) [Mass/Vol] 14.4 g/dL 12.0-15.0 [facility] Potassium [Moles/Vol] 4.0 mmol/L 3.5-5.1 [facility] Sodium [Moles/Vol] 140 mmol/L 136-145 [facility] WBC (Bld) [#/Vol] 8.4 10*3/uL 4.4-11.0 [facility] Bilirubin Test strip Ql (U)O rdered By: Adelfo Dhaliwal on 10-21-2023 Bilirubin Ql (U) Negative Negative [facility] Culture, urineOrdered By: Danielle Dhaliwal on 10-21-2023 Bacteria identified Cx Nom (U) Mixed Gram Pos & Gram Neg Org [facility] Determination of erythrocyte mean corpuscular volume (MCV)Ordered By: Adelfo Dhaliwal on 10-21-2023 MCV (RBC) [Entitic vol] 95.3 fL 81-99 [facility] Erythrocyte distribution wid th ratioOrdered By: Adelfo Dhaliwal on 10-21-2023 Erythrocyte distribution width (RBC) [Ratio] 12.6 % 11.6-14.6 [facility] Erythrocyte distribution wid th standard deviationOrdered By: Adelfo Dhlaiwal on 10-21-2023 Erythrocyte distribution width (RBC) [Entitic vol] 43.8 fL 35.1-43.9 [facility] Hematocrit Auto (Bld) [Volum e fraction]Ordered By: Adelfo Dhaliwal on 10-21-2023 Hematocrit (Bld) [Volume fraction] 44.7 % 37-47 [facility] Ketones Test strip Ql (U)Ord ered By: Adelfo Dhaliwal on 10-21-2023 Ketones Ql (U) Negative Negative [facility] Laboratory - Chemistry and C hemistry - challengeOrdered By: Adelfo Dhaliwal on 10-21-2023 CO2 [Moles/Vol] 27.0 mmol/L 21.0-32.0 [facility] Urea nitrogen/Creatinine [Mass ratio] 22.0 mg/mg 10-20 [facility] Laboratory - Hematology and Cell countsOrdered By: Adelfo Dhaliwal on 10-21-2023 MCH (RBC) [Entitic mass] 30.7 pg 27.0-32.0 [facility] MCHC (RBC) [Mass/Vol] 32.2 g/dL 32-36 [facility] Platelet mean volume (Bld) [Entitic vol] 9.9 fL 6.2-12.0 [facility] Platelets (Bld) [#/Vol] 259 10*3/uL 150-450 [facility] Nitrite Test strip Ql (U)Ord ered By: Adelfo Dhaliwal on 10-21-2023 Nitrite Ql (U) Negative Negative [facility] No Panel InformationOrdered By: Adelfo Dhaliwal on 10-21-2023 Estimated GFR (MDRD) Amer 149 mL/min >60 [facility] Comment on above: GFR Calc Estimated GFR (MDRD) Non-Af Amer 124 mL/min >60 [facility] Comment on above: Non- GFR Calc Protein Test strip Ql (U)Ord ered By: Adelfo Dhaliwal on 10-21-2023 Protein Ql (U) Negative Negative [facility] RBC Auto (Bld) [#/Vol]Ordere d By: Adelfo Dhaliwal on 10-21-2023 RBC (Bld) [#/Vol] 4.69 10*6/uL 4.2-5.4 [facility] Serum or plasma calcium ivette urement (mass/volume)Ordered By: Adelfo Dhaliwal on 10-21-2023 Calcium [Mass/Vol] 9.7 mg/dL 8.5-10.1 [facility] Serum or plasma creatinine m easurement (mass/volume)Ordered By: Adelfo Dhaliwal on 10-21-2023 Creatinine [Mass/Vol] 0.50 mg/dL 0.55-1.02 [facility] Comment on above: The validity of the calculated GFR & GFRAA in patients over 70 years has not been determined. Clinical correlation is essential. Serum or plasma urea nitroge n measurement (mass/volume)Ordered By: Adelfo Dhaliwal on 10-21-2023 Urea nitrogen [Mass/Vol] 11 mg/dL 7-18 [facility] Thin prep Papanicolaou smear with manual screeningOrdered By: Adelfo Dhaliwal on 10-21-2023 Thin prep Papanicolaou smear with manual screening 6 5-15 [facility] Urine blood detectionOrdered By: Adelfo Dhaliwal on 10-21-2023 RBC Ql (U) Negative Negative [facility] Urine clarityOrdered By: Paul Dhaliwal on 10-21-2023 Clarity (U) Sl. Cloudy Clear [facility] Urine color determinationOrd ered By: Adelfo Dhaliwal on 10-21-2023 Color (U) Yellow Yellow [facility] Urine glucose detectionOrder ed By: Adelfo Dhaliwal on 10-21-2023 Glucose Ql (U) Normal mg/dl Normal [facility] Urine leukocyte esterase det ection by dipstickOrdered By: Adelfo Dhaliwal on 10-21-2023 Leukocyte esterase Test strip Ql (U) 25 /ul Negative [facility] Urine pHOrdered By: Adelfo ortiz on 10-21-2023 pH (U) 7.0 [pH] 5.0 - 8.0 [facility] Urine specific gravity measu rementOrdered By: Adelfo Dhaliwal on 10-21-2023 Specific gravity (U) [Rel density] 1.010 1.002-1.030 [facility] Urine urobilinogen measureme ntOrdered By: Adelfo Dhaliwal on 10-21-2023 Urobilinogen Ql (U) Normal mg/dl Normal [facility] Bilirubin Test strip Ql (U)O rdered By: Adelfo Dhaliwal on 07-15-2023 Bilirubin Ql (U) Negative Negative [facility] Culture, urineOrdered By: Danielle Dhaliwal on 07-15-2023 Bacteria identified Cx Nom (U) Culture exhibits no growth. [facility] Bacteria identified Cx Nom (U) Culture exhibits no growth. [facility] Ketones Test strip Ql (U)Ord ered By: Adelfo Dhaliwal on 07-15-2023 Ketones Ql (U) Negative Negative [facility] Nitrite Test strip Ql (U)Ord ered By: Adelfo Dhaliwal on 07-15-2023 Nitrite Ql (U) Negative Negative [facility] Protein Test strip Ql (U)Ord ered By: Adelfo Dhaliwal on 07-15-2023 Protein Ql (U) 30 mg/dl Negative [facility] Urine blood detectionOrdered By: Adelfo Dhaliwal on 07-15-2023 RBC Ql (U) 50 /ul Negative [facility] Urine clarityOrdered By: Paul Dhaliwal on 07-15-2023 Clarity (U) Sl. Cloudy Clear [facility] Urine color determinationOrd ered By: Adelfo Dhaliwal on 07-15-2023 Color (U) Yellow Yellow [facility] Urine glucose detectionOrder ed By: Adelfo Dhaliwal on 07-15-2023 Glucose Ql (U) Normal mg/dl Normal [facility] Urine leukocyte esterase det ection by dipstickOrdered By: Adelfo Dhaliwal on 07-15-2023 Leukocyte esterase Test strip Ql (U) Negative Negative [facility] Urine pHOrdered By: Adelfo ortiz on 07-15-2023 pH (U) 5.0 [pH] 5.0 - 8.0 [facility] Urine specific gravity measu rementOrdered By: Adelfo Dhaliwal on 07-15-2023 Specific gravity (U) [Rel density] 1.025 1.002-1.030 [facility] Urobilinogen Auto test strip Ql (U)Ordered By: Adelfo Dhaliwal on 07-15-2023 Urobilinogen Ql (U) Normal mg/dl Normal [facility] Basophil percentageOrdered B y: Adelfo Dhaliwal on 07-12-2023 Cholesterol [Mass/Vol] 124 mg/dL <200 [facility] Comment on above: <200 mg/dL Desirable 200-240 mg/dL Borderline >240 mg/dL High Risk Triglyceride [Mass/Vol] 156 mg/dL <199 [facility] Comment on above: The drugs N-Acetylcy steine and Metamizole may falsely depress this assay.Serum Triglycerides Reference Interval Normal <150 mg/dL Borderline high 150 - 199 mg/dL High 200 - 499 mg/dL Very High > or = 500 mg/dL Laboratory - Chemistry and C hemistry - challengeOrdered By: Adelfo Dhaliwal on 07-12-2023 T4 [Mass/Vol] 10.3 ug/dL 4.8-13.9 [facility] No Panel InformationOrdered By: Adelfo Dhaliwal on 07-12-2023 Thyroid Stimulating Hormone (TSH) 0.98 uIU/mL 0.358-3.74 [facility] Total Triiodothyronine 0.84 ng/mL 0.6-1.81 [facility] Vitamin D 25-Hydroxy 61.9 ng/mL [facility] Comment on above: Vitamin D 25(OH) Sta tus Range Deficiency <20 ng/mL (50nmol/L) Insufficiency 20 - 30 ng/mL (50 - 75 nmol/L) Sufficiency 30 - 100 ng/mL (75 - 250 nmol/L) Toxicity >100 ng/mL (>250 nmol/L) Serum or plasma cholesterol in HDL measurement (mass/volume)Ordered By: Adelfo Dhaliwal on 07-12-2023 Cholesterol in HDL [Mass/Vol] 46 mg/dL >40 [facility] Comment on above: The drugs N-Acetylcy steine and Metamizole may falsely depress this assay. Reference Range HDL <40 mg/dL Low HDL Cholesterol HDL >or= 60 mg/dL High HDL Cholesterol Serum or plasma cholesterol in VLDL measurement (mass/volume)Ordered By: Adelfo Dhaliwal on 07-12-2023 Cholesterol in VLDL [Mass/Vol] 31 mg/dL 5-40 [facility] Serum or plasma low density lipoprotein (LDL) cholesterol measurement (mass/volume)Ordered By: Adelfo Dhaliwal on 07-12-2023 Cholesterol in LDL [Mass/Vol] 47 mg/dL 0-130 [facility] Basophil percentageOrdered B y: Adelfo Dhaliwal on 06-10-2023 Chloride [Moles/Vol] 106 mmol/L 98-107 [facility] Glucose [Mass/Vol] 209 mg/dL 74-106 [facility] Comment on above: Glucose result great er than or equal to 200 mg/dLsuggests DIABETES MELLITUS per A.D.A. criteria. Potassium [Moles/Vol] 3.9 mmol/L 3.5-5.1 [facility] Sodium [Moles/Vol] 135 mmol/L 136-145 [facility] WBC (Bld) [#/Vol] 11.1 10*3/uL 4.4-11.0 [facility] Blood erythrocytes count (nu mber/volume)Ordered By: Adelfo Dhaliwal on 06-10-2023 RBC (Bld) [#/Vol] 4.52 10*6/uL 4.2-5.4 [facility] Blood hemoglobin measurement (mass/volume)Ordered By: Adelfo Dhaliwal on 06-10-2023 Hemoglobin (Bld) [Mass/Vol] 13.8 g/dL 12.0-15.0 [facility] Blood platelet mean volumeOr dered By: Adelfo Dhaliwal on 06-10-2023 Platelet mean volume (Bld) [Entitic vol] 10.1 fL 6.2-12.0 [facility] Determination of erythrocyte mean corpuscular volume (MCV)Ordered By: Adelfo Dhaliwal on 06-10-2023 MCV (RBC) [Entitic vol] 96.7 fL 81-99 [facility] Hematocrit Auto (Bld) [Volum e fraction]Ordered By: Adelfo Dhaliwal on 06-10-2023 Hematocrit (Bld) [Volume fraction] 43.7 % 37-47 [facility] Laboratory - Chemistry and C hemistry - challengeOrdered By: Adelfo Dhaliwal on 06-10-2023 CO2 [Moles/Vol] 27.0 mmol/L 21.0-32.0 [facility] Urea nitrogen/Creatinine [Mass ratio] 28.3 mg/mg 10-20 [facility] Laboratory - Hematology and Cell countsOrdered By: Adelfo Dhaliwal on 06-10-2023 Erythrocyte distribution width (RBC) [Entitic vol] 44.8 fL 35.1-43.9 [facility] Erythrocyte distribution width (RBC) [Ratio] 12.5 % 11.6-14.6 [facility] MCH (RBC) [Entitic mass] 30.5 pg 27.0-32.0 [facility] MCHC Auto (RBC) [Mass/Vol]Or dered By: Adelfo Dhaliwal on 06-10-2023 MCHC (RBC) [Mass/Vol] 31.6 g/dL 32-36 [facility] No Panel InformationOrdered By: Adelfo Dhaliwal on 06-10-2023 Estimated GFR (MDRD) Amer 152 mL/min >60 [facility] Comment on above: GFR Calc Estimated GFR (MDRD) Non-Af Amer 125 mL/min >60 [facility] Comment on above: Non- GFR Calc Platelets bldOrdered By: Paul Dhaliwal on 06-10-2023 Platelets (Bld) [#/Vol] 262 10*3/uL 150-450 [facility] Serum or plasma calcium ivette urement (mass/volume)Ordered By: Adelfo Dhaliwal on 06-10-2023 Calcium [Mass/Vol] 9.3 mg/dL 8.5-10.1 [facility] Serum or plasma creatinine m easurement (mass/volume)Ordered By: Adelfo Dhaliwal on 06-10-2023 Creatinine [Mass/Vol] 0.50 mg/dL 0.55-1.02 [facility] Comment on above: The validity of the calculated GFR & GFRAA in patients over 70 years has not been determined. Clinical correlation is essential. Serum or plasma urea nitroge n measurement (mass/volume)Ordered By: Adelfo Dhaliwal on 06-10-2023 Urea nitrogen [Mass/Vol] 14 mg/dL 7-18 [facility] Thin prep Papanicolaou smear with manual screeningOrdered By: Adelfo Dhaliwal on 06-10-2023 Thin prep Papanicolaou smear with manual screening 2 5-15 [facility] Whole blood hemoglobin A1c/t otal hemoglobin ratio (mass fraction)Ordered By: Adelfo Dhaliwal on 06-10-2023 HbA1c (Bld) [Mass fraction] 8.0 % 3.8-5.6 [facility] Comment on above: Normal < 5.7 % Predi abetic 5.7 - 6.4 % Diabetic >or= 6.5 % Please note range changes. Office Visiton 02-25-2023 Follow-up visit [id number] Raudel Ahumada 1935 F Date Provider Department Center 02/25/2023 [id number] [facility] WAD None Family History Problem Relation Age of Onset Diabetes Mother Coronary artery disease Brother Stroke Mother Cancer Brother Heart disease Father Diabetes Brother Heart disease Mother Stroke Brother Heart disease Brother Family Status - Relation Status Age at Mother Brother Father Level of Service:39747 [place] OFFICE/OUTPATIENT NEW LOW MDM 30-44 MINUTES Reason for Visit and Comments: Back Pain [12] - Left lower leg Normal [facility] Progress Noteon 02-25-2023 Progress Note [facility] [address] [place] [address] Dept: [phone] Dept Chief Complaint Patient presents with Back [...] surgery: no Occupation: Retired- currently living at [facility], 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 No significant change in her back pain for 3 years. 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 We recommended continued maintenance of her strength level and continued formal physical therapy. We will go ahead and write an order for her to get formal physical therapy at [facility] for her chronic weakness. Follow-up with neurology for any potential care for her left hemiparesis. Follow up if symptoms worsen or fail to improve, for call our office with any questions at [phone]. Patricia Harris MD 02/25/2023 10:03 AM Please note that portions of this note may have been completed with voice recognition software. (more content not included)... Normal [facility] Basophil percentageOrdered B y: Adelfo Dhaliwal on 02-14-2023 Chloride [Moles/Vol] 108 mmol/L 98-107 [facility] Glucose [Mass/Vol] 128 mg/dL 74-106 [facility] Comment on above: Fasting Glucose resu lt greater than or equal to 126 mg/dL suggests DIABETES MELLITUS per A.D.A. criteria. Potassium [Moles/Vol] 4.0 mmol/L 3.5-5.1 [facility] Sodium [Moles/Vol] 143 mmol/L 136-145 [facility] Laboratory - Chemistry and C hemistry - challengeOrdered By: Adelfo Dhaliwal on 02-14-2023 CO2 [Moles/Vol] 29.0 mmol/L 21.0-32.0 [facility] Urea nitrogen/Creatinine [Mass ratio] 32.2 mg/mg 10-20 [facility] No Panel InformationOrdered By: Adelfo Dhaliwal on 02-14-2023 Estimated GFR (MDRD) Amer 176 mL/min >60 [facility] Comment on above: GFR Calc Estimated GFR (MDRD) Non-Af Amer 146 mL/min >60 [facility] Comment on above: Non- GFR Calc Serum or plasma calcium ivette urement (mass/volume)Ordered By: Adelfo Dhaliwal on 02-14-2023 Calcium [Mass/Vol] 9.5 mg/dL 8.5-10.1 [facility] Serum or plasma creatinine m easurement (mass/volume)Ordered By: Adelfo Dhaliwal on 02-14-2023 Creatinine [Mass/Vol] 0.44 mg/dL 0.55-1.02 [facility] Comment on above: The validity of the calculated GFR & GFRAA in patients over 70 years has not been determined. Clinical correlation is essential. Serum or plasma urea nitroge n measurement (mass/volume)Ordered By: Adelfo Dhaliwal on 02-14-2023 Urea nitrogen [Mass/Vol] 14 mg/dL 7-18 [facility] Serum or plasma uric acid me asurement (mass/volume)Ordered By: Adelfo Dhaliwal on 02-14-2023 Urate [Mass/Vol] 4.9 mg/dL 2.6-6.0 [facility] Comment on above: The drugs N-Acetylcy steine and Metamizole may falsely depress this assay. Thin prep Papanicolaou smear with manual screeningOrdered By: Adelfo Dhaliwal on 02-14-2023 Thin prep Papanicolaou smear with manual screening 6 5-15 [facility] Basophil percentageOrdered B y: Adelfo Dhaliwal on 01-16-2023 Cholesterol [Mass/Vol] 121 mg/dL <200 [facility] Comment on above: <200 mg/dL Desirable 200-240 mg/dL Borderline >240 mg/dL High Risk Triglyceride [Mass/Vol] 124 mg/dL <199 [facility] Comment on above: The drugs N-Acetylcy steine and Metamizole may falsely depress this assay.Serum Triglycerides Reference Interval Normal <150 mg/dL Borderline high 150 - 199 mg/dL High 200 - 499 mg/dL Very High > or = 500 mg/dL Laboratory - Chemistry and C hemistry - challengeOrdered By: Adelfo Dhaliwal on 01-16-2023 Magnesium [Mass/Vol] 2.1 mg/dL 1.6-2.6 [facility] Comment on above: Slight Hemolysis, Re sult may be falsely increased. No Panel InformationOrdered By: Adelfo Dhaliwal on 01-16-2023 Thyroid Stimulating Hormone (TSH) 1.03 uIU/mL 0.358-3.74 [facility] Vitamin D 25-Hydroxy 80.6 ng/mL [facility] Comment on above: Vitamin D 25(OH) Sta tus Range Deficiency <20 ng/mL (50nmol/L) Insufficiency 20 - 30 ng/mL (50 - 75 nmol/L) Sufficiency 30 - 100 ng/mL (75 - 250 nmol/L) Toxicity >100 ng/mL (>250 nmol/L) Serum or plasma cholesterol in HDL measurement (mass/volume)Ordered By: Adelfo Dhaliwal on 01-16-2023 Cholesterol in HDL [Mass/Vol] 46 mg/dL >40 [facility] Comment on above: The drugs N-Acetylcy steine and Metamizole may falsely depress this assay. Reference Range HDL <40 mg/dL Low HDL Cholesterol HDL >or= 60 mg/dL High HDL Cholesterol Serum or plasma cholesterol in VLDL measurement (mass/volume)Ordered By: Adelfo Dhaliwal on 01-16-2023 Cholesterol in VLDL [Mass/Vol] 25 mg/dL 5-40 [facility] Serum or plasma low density lipoprotein (LDL) cholesterol measurement (mass/volume)Ordered By: Adelfo Dhaliwal on 01-16-2023 Cholesterol in LDL [Mass/Vol] 50 mg/dL 0-130 [facility] Whole blood hemoglobin A1c/t otal hemoglobin ratio (mass fraction)Ordered By: Adelfo Dhaliwal on 01-09-2023 HbA1c (Bld) [Mass fraction] 8.4 % 3.8-5.6 [facility] Comment on above: Normal < 5.7 % Predi abetic 5.7 - 6.4 % Diabetic >or= 6.5 % Please note range changes. Telephone Encounteron 2022 Computer Operator Authentication Interface Message Text Patient is calling to states she had dentures that Dr Ayala took to have them to realign. Patient states the bottom denture was never returned to her. Patient states the dentures were not made in the clinic. They were made outside of [facility]. When she seen Dr Ayala in June 2022 he performed another mold and she is waiting to pick them up. Pls call pt @ [phone] Thank you Normal [facility] Computer Operator Authentication Interface Message Text Spoke with patient regarding her dentures. Explained to her that Dr. Ayala does not make dentures. Provided the contact information for [facility] and explained that if these dentures have been made by a [facility] provider, this is the department that will have them, otherwise she will need to see an outside dentist to have dentures made. Patient understood. Titus Ramirez DMD pneumatic system conveyor operator, PGY-3 Team Pager: [phone] Normal [facility] Computer Operator Authentication Interface Message Text The patient called [...] about this and can be reached at [phone] Thank You! Normal [facility] Laboratory - Chemistry and C hemistry - challengeOrdered By: Adelfo Dhaliwal on 10-30-2022 Magnesium [Mass/Vol] 1.8 mg/dL 1.6-2.6 [facility] Whole blood hemoglobin A1c/t otal hemoglobin ratio (mass fraction)Ordered By: Adelfo Dhaliwal on 10-30-2022 HbA1c (Bld) [Mass fraction] 6.6 % 3.8-5.6 [facility] Comment on above: Normal < 5.7 % Predi abetic 5.7 - 6.4 % Diabetic >or= 6.5 % Please note range changes. Basophil percentageOrdered B y: Adelfo Dhaliwal on 10-01-2022 Chloride [Moles/Vol] 107 mmol/L 98-107 [facility] Glucose [Mass/Vol] 125 mg/dL 74-106 [facility] Comment on above: Fasting Glucose resu lt from 100 to 125 mg/dL suggests IMPAIRED HOMEOSTASIS per A.D.A. criteria. Potassium [Moles/Vol] 4.3 mmol/L 3.5-5.1 [facility] Sodium [Moles/Vol] 140 mmol/L 136-145 [facility] Laboratory - Chemistry and C hemistry - challengeOrdered By: Adelfo Dhaliwal on 10-01-2022 CO2 [Moles/Vol] 24.0 mmol/L 21.0-32.0 [facility] Urea nitrogen/Creatinine [Mass ratio] 23.6 mg/mg [facility] No Panel InformationOrdered By: Adelfo Dhaliwal on 10-01-2022 Estimated GFR (MDRD) Amer 134 mL/min >60 [facility] Comment on above: GFR Calc Estimated GFR (MDRD) Non-Af Amer 111 mL/min >60 [facility] Comment on above: Non- GFR Calc Serum or plasma calcium ivette urement (mass/volume)Ordered By: Adelfo Dhaliwal on 10-01-2022 Calcium [Mass/Vol] 9.8 mg/dL 8.5-10.1 [facility] Serum or plasma creatinine m easurement (mass/volume)Ordered By: Adelfo Dhaliwal on 10-01-2022 Creatinine [Mass/Vol] 0.55 mg/dL 0.55-1.02 [facility] Comment on above: The validity of the calculated GFR & GFRAA in patients over 70 years has not been determined. Clinical correlation is essential. Serum or plasma urea nitroge n measurement (mass/volume)Ordered By: Adelfo Dhaliwal on 10-01-2022 Urea nitrogen [Mass/Vol] 13 mg/dL 7-18 [facility] Thin prep Papanicolaou smear with manual screeningOrdered By: Adelfo Dhaliwal on 10-01-2022 Thin prep Papanicolaou smear with manual screening 9 5-15 [facility] Patient Instructionson 06-19 Computer Operator Authentication Interface Message Text Dental extraction Instructions [...] done to speak with an oral surgeon. [facility] [phone]. HELPING THE HEALING PROCESS AND STOPPING THE [...] c (more content not included)... Normal [facility] Progress Noteson 06-19-2022 Computer Operator Authentication Interface Message Text Normal [facility] Telephone Encounteron 2021 Computer Operator Authentication Interface Message Text [facility] called to confirm the Pa was approved. Approval noted 05/28. Please call [phone] to schedule the patient. Thank you! Normal [facility] Telephone Encounteron 2021 Computer Operator Authentication Interface Message Text Patient is calling again asking what's the update of her PA, and when would be the surgery date/time. Please reach out to pt. Thank you! Normal [facility] Telephone Encounteron 2021 Computer Operator Authentication Interface Message Text Steffi Hale recording studio setup worker from [facility] called regarding the patient. Steffi states the patient has decided to use our services for Oral surgery. Patient had a consultation on 04/17, and Steffi would like to go forward with the process. Once the insurance approves the surgery, please call [facility] and speak to the [address] [place] [address] nurse to schedule at [phone]. Thank you! Normal [facility] Progress Noteson 04-18-2022 Computer Operator Authentication Interface Message Text Teaching Physician Note: I saw and evaluated the patient. I personally obtained the otero and critical portions of the history and physical exam. I reviewed the resident's documentation and discussed the patient with the resident. I agree with the resident's medical decision making as documented in the resident's note. Lóepz Ayala DDS Normal [facility] Patient Instructionson 04-17 Computer Operator Authentication Interface Message Text Dental extraction Instructions [...] done to speak with an oral surgeon. [facility] [phone]. HELPING THE HEALING PROCESS AND STOPPING THE [...] c (more content not included)... Normal [facility] Progress Noteson 04-17-2022 Computer Operator Authentication Interface Message Text Tooth #3 Normal [facility] Computer Operator Authentication Interface Message Text [facility] PATIENT VISIT CHIEF COMPLAINT: Toothache HISTORY OF PRESENT ILLNESS: 86 yo F with pmhx significant for T2DM, obesity, COPD, and asthma presents to the [facility] clinic for consult for extraction of remaining [...] that the future appointment was not in [place] is located. Informed patient about today's appointment was a consultation and all procedures are completed here on [facility], [address] or [place]. Discussed sedation. Pt wanted to be asleep, [...] with us or a local surgeon near [place]. Will also require PANO for patient as there was no pano sent from referring provider prior to the time the appointment. Jules Moore DMD Normal [facility] Basophil percentageon 2021 Bilirubin [Mass/Vol] 0.80 mg/dL 0.20-1.00 [facility] Work Phone: Comment on above: For patients on eltr ombopag therapy, use of Dimension [place] TBIL is not recommended. Chloride [Moles/Vol] 107 mmol/L 98-107 [facility] Work Phone: Cholesterol [Mass/Vol] 150 mg/dL <200 [facility] Work Phone: Comment on above: <200 mg/dL Desirable 200-240 mg/dL Borderline >240 mg/dL High Risk Glucose [Mass/Vol] 135 mg/dL 74-106 [facility] Work Phone: Comment on above: Fasting Glucose resu lt greater than or equal to 126 mg/dL suggests DIABETES MELLITUS per A.D.A. criteria. Potassium [Moles/Vol] 4.1 mmol/L 3.5-5.1 [facility] Work Phone: Comment on above: Slight Hemolysis, Re sult may be falsely increased. Protein [Mass/Vol] 6.6 g/dL 6.4-8.2 [facility] Work Phone: Sodium [Moles/Vol] 140 mmol/L 136-145 [facility] Work Phone: Triglyceride [Mass/Vol] 105 mg/dL [facility] Work Phone: Comment on above: The drugs N-Acetylcy steine and Metamizole may falsely depress this assay.Serum Triglycerides Reference Interval Normal <150 mg/dL Borderline high 150 - 199 mg/dL High 200 - 499 mg/dL Very High > or = 500 mg/dL WBC (Bld) [#/Vol] 7.9 10*3/uL 4.4-11.0 [facility] Work Phone: Blood erythrocytes count (nu mber/volume)on 12-21-2021 RBC (Bld) [#/Vol] 4.28 10*6/uL 4.2-5.4 [facility] Work Phone: Blood hemoglobin measurement (mass/volume)on 12-21-2021 Hemoglobin (Bld) [Mass/Vol] 13.4 g/dL 12.0-15.0 [facility] Work Phone: Blood platelet mean volumeon 12-21-2021 Platelet mean volume (Bld) [Entitic vol] 9.8 fL 6.2-12.0 [facility] Work Phone: Determination of erythrocyte mean corpuscular volume (MCV)on 12-21-2021 MCV (RBC) [Entitic vol] 96.5 fL 81-99 [facility] Work Phone: Hematocrit Auto (Bld) [Volum e fraction]on 12-21-2021 Hematocrit (Bld) [Volume fraction] 41.3 % 37-47 [facility] Work Phone: Laboratory - Chemistry and C hemistry - challengeon 12-21-2021 ALP [Catalytic activity/Vol] 120 U/L 45-117 [facility] Work Phone: ALT [Catalytic activity/Vol] 23 U/L 13-56 [facility] Work Phone: CO2 [Moles/Vol] 29.0 mmol/L 21.0-32.0 [facility] Work Phone: Globulin (S) [Mass/Vol] 3.6 g/dL 2.2-4.2 [facility] Work Phone: Urea nitrogen/Creatinine [Mass ratio] 31.4 mg/mg 10-20 [facility] Work Phone: Laboratory - Hematology and Cell countson 12-21-2021 Erythrocyte distribution width (RBC) [Entitic vol] 44.5 fL 35.1-43.9 [facility] Work Phone: Erythrocyte distribution width (RBC) [Ratio] 12.6 % 11.6-14.6 [facility] Work Phone: MCH (RBC) [Entitic mass] 31.3 pg 27.0-32.0 [facility] Work Phone: MCHC Auto (RBC) [Mass/Vol]on 12-21-2021 MCHC (RBC) [Mass/Vol] 32.4 g/dL 32-36 [facility] Work Phone: No Panel Informationon 12-21 Estimated GFR (MDRD) Amer 128 mL/min >60 [facility] Work Phone: Comment on above: GFR Calc Estimated GFR (MDRD) Non-Af Amer 106 mL/min >60 [facility] Work Phone: Comment on above: Non- GFR Calc Thyroid Stimulating Hormone (TSH) 0.70 uIU/mL 0.358-3.74 [facility] Work Phone: Vitamin D 25-Hydroxy 51.9 ng/mL [facility] Work Phone: Comment on above: Vitamin D 25(OH) Sta tus Range Deficiency <20 ng/mL (50nmol/L) Insufficiency 20 - 30 ng/mL (50 - 75 nmol/L) Sufficiency 30 - 100 ng/mL (75 - 250 nmol/L) Toxicity >100 ng/mL (>250 nmol/L) Platelets bldon 12-21-2021 Platelets (Bld) [#/Vol] 262 10*3/uL 150-450 [facility] Work Phone: Serum or plasma albumin ivette urement (mass/volume)on 12-21-2021 Albumin [Mass/Vol] 3.0 g/dL 3.2-5.0 [facility] Work Phone: Serum or plasma albumin/glob ulin mass ratioon 12-21-2021 Albumin/Globulin [Mass ratio] 0.8 {ratio} 0.9-2.4 [facility] Work Phone: Serum or plasma calcium ivette urement (mass/volume)on 12-21-2021 Calcium [Mass/Vol] 9.5 mg/dL 8.5-10.1 [facility] Work Phone: Serum or plasma cholesterol in HDL measurement (mass/volume)on 12-21-2021 Cholesterol in HDL [Mass/Vol] 57 mg/dL [facility] Work Phone: Comment on above: The drugs N-Acetylcy steine and Metamizole may falsely depress this assay. Reference Range HDL <40 mg/dL Low HDL Cholesterol HDL >or= 60 mg/dL High HDL Cholesterol Serum or plasma cholesterol in VLDL measurement (mass/volume)on 12-21-2021 Cholesterol in VLDL [Mass/Vol] 21 mg/dL 5-40 [facility] Work Phone: Serum or plasma creatinine m easurement (mass/volume)on 12-21-2021 Creatinine [Mass/Vol] 0.57 mg/dL 0.55-1.02 [facility] Work Phone: Comment on above: The validity of the calculated GFR & GFRAA in patients over 70 years has not been determined. Clinical correlation is essential. Serum or plasma low density lipoprotein (LDL) cholesterol measurement (mass/volume)on 12-21-2021 Cholesterol in LDL [Mass/Vol] 72 mg/dL 0-130 [facility] Work Phone: Serum or plasma urea nitroge n measurement (mass/volume)on 12-21-2021 Urea nitrogen [Mass/Vol] 18 mg/dL 7-18 [facility] Work Phone: Thin prep Papanicolaou smear with manual screeningon 12-21-2021 Thin prep Papanicolaou smear with manual screening 15 U/L 15-37 [facility] Work Phone: Comment on above: Slight Hemolysis, Re sult may be falsely increased. Thin prep Papanicolaou smear with manual screening 4 5-15 [facility] Work Phone: Whole blood hemoglobin A1c/t otal hemoglobin ratio (mass fraction)on 12-21-2021 HbA1c (Bld) [Mass fraction] 6.4 % 3.8-5.6 [facility] Work Phone: Comment on above: Normal < 5.7 % Predi abetic 5.7 - 6.4 % Diabetic >or= 6.5 % Please note range changes. CR Spine Lumbosacral 4+ View son 06-15-2020 CR Spine Lumbosacral 4+ Views Patient Name: RAUDEL AHUMADA Diagnostic Radiology Exam Date/Time 06/15/2020 14:37:53 EST Exam CR Spine Lumbosacral 4+ Views Ordering Physician MD DILEEP, MAIDA Accession Number [id number] CPT4 Codes 41830 () Reason For Exam lumbar back pain [...] anterolisthesis at L4-L5. Report Dictated on Workstation: [id number] Final Dictating Physician: DO LLOYD ALFRED Signed Date and Time: 06/15/2020 3:14 pm Signed by: DO LLOYD ALFRED Transcribed Date and Time: 06/15/2020 3:16 Normal [facility] XR LUMBAR SPINE (MIN 4 VIEWS )on 06-15-2020 Patient Name: RAUDEL AHUMADA ---Diagnostic Radiology--- Exam Date/Time 06/15/2020 14:37:53 EST Exam CR Spine Lumbosacral 4+ Views Ordering Physician MD DOSHI DIANA Accession Number [id number] CPT4 Codes 00434 () Reason For Exam lumbar back pain [...] ALFRED Transcribed Date and Time: 06/15/2020 3:16 [facility] [place] [place] Mike, [facility] Incoming Radiology Results From [facility] - 06/15/2020 3:16 PM EST Patient Name: RAUDEL AHUMADA ---Diagnostic Radiology--- Exam Date/Time 06/15/2020 14:37:53 EST Exam CR Spine Lumbosacral 4+ Views Ordering Physician MD DILEEP MAIDA Accession Number [id number] CPT4 Codes 66449 () Reason For Exam lumbar back pain [...] ALFRED Transcribed Date and Time: 06/15/2020 3:16 [place], [place] CBC Auto Differentialon 10-0 Absolute Baso # 0.1 10*3/uL 0 - 0.2 10*3/uL [place] Absolute Neut # 4.8 10*3/uL 1.8 - 7 10*3/uL [place] Basophils/100 WBC (Bld) 0.9 % 0 - 2 % [place] Eosinophils (Bld) [#/Vol] 0.2 10*3/uL 0 - 0.5 10*3/uL [place] Eosinophils/100 WBC (Bld) 2.5 % 1 - 6 % [place] Erythrocyte distribution width (RBC) [Ratio] 12.9 % 11.5 - 14.5 % [place] Granulocytes/100 WBC (Bld) 52.8 % 40 - 80 % [place] Hematocrit (Bld) [Volume fraction] 46.8 % 35 - 47 % [place] Hemoglobin (Bld) [Mass/Vol] 16.2 g/dL High 11.7 - 16 g/dL [place] Interpretation and review of laboratory results Abnormal [place] Lymphocytes (Bld) [#/Vol] 3.4 10*3/uL 1 - 4.3 10*3/uL [place] Lymphocytes/100 WBC (Bld) 36.9 % 20 - 40 % [place] MCH (RBC) [Entitic mass] 31.9 pg 26 - 34 pg [place] MCHC (RBC) [Mass/Vol] 34.7 % 32 - 36 % [place] MCV (RBC) [Entitic vol] 91.8 fL 79 - 98 fL [place] Monocytes (Bld) [#/Vol] 0.6 10*3/uL 0 - 0.8 10*3/uL [place] Monocytes/100 WBC (Bld) 6.9 % 2 - 10 % [place] Platelet mean volume (Bld) [Entitic vol] 7.7 fL 7.4 - 10.4 fL [place] Platelets (Bld) [#/Vol] 298 10*3/uL 140 - 440 10*3/uL [place] RBC (Bld) [#/Vol] 5.10 10*6/uL 3.8 - 5.2 10*6/uL [place] WBC (Bld) [#/Vol] 9.1 10*3/uL 3.6 - 10.7 10*3/uL [place] Test Performed by [facility], [address] [place], [place] [address] , [place], [place] [id number] [place] [address] Comp Metabolic Panelon 05-12 ALT [Catalytic activity/Vol] 17 U/L Normal 0-34 [facility] Comment on above: Result Comment: The ALT test is performed by an updated assay method. Please note that the reference intervals have been changed and are now sex specific. Performed By: #### L IPD2, HEMDF, TSH5, CMP3, HA1C2 #### [facility] [address] [place] [address] Calcium [Mass/Vol] 10.5 mg/dL High 8.4-10.4 [facility] Comment on above: Performed By: #### L IPD2, HEMDF, TSH5, CMP3, HA1C2 #### [facility] [address] [place] [address] ALP [Catalytic activity/Vol] 104 U/L Normal 38-126 [facility] Comment on above: Performed By: #### L IPD2, HEMDF, TSH5, CMP3, HA1C2 #### [facility] [address] [place] [address] Anion gap [Moles/Vol] 9 Normal [facility] Comment on above: Performed By: #### L IPD2, HEMDF, TSH5, CMP3, HA1C2 #### [facility] [address] [place] [address] AST [Catalytic activity/Vol] 20 U/L Normal 15-46 [facility] Comment on above: Performed By: #### L IPD2, HEMDF, TSH5, CMP3, HA1C2 #### [facility] [address] [place] [address] Bilirubin [Mass/Vol] 1.0 mg/dL Normal 0.2-1.3 [facility] Comment on above: Performed By: #### L IPD2, HEMDF, TSH5, CMP3, HA1C2 #### [facility] [address] [place] [address] CO2 [Moles/Vol] 25 mmol/L Normal 22-30 [facility] Comment on above: Performed By: #### L IPD2, HEMDF, TSH5, CMP3, HA1C2 #### [facility] [address] [place] [address] Creatinine [Mass/Vol] 0.59 mg/dL Normal 0.52-1.25 [facility] Comment on above: Performed By: #### L IPD2, HEMDF, TSH5, CMP3, HA1C2 #### [facility] [address] [place] [address] GFR/1.73 sq M predicted among blacks MDRD (S/P/Bld) [Vol rate/Area] mL/min/{1.73_m2} Normal >60 [facility] Comment on above: Performed By: #### L IPD2, HEMDF, TSH5, CMP3, HA1C2 #### [facility] [address] [place] [address] GFR/1.73 sq M predicted among non-blacks MDRD (S/P/Bld) [Vol rate/Area] 83.9 mL/min/{1.73_m2} Normal >60 [facility] Comment on above: Result Comment: KDIG [...] L IPD2, HEMDF, TSH5, CMP3, HA1C2 #### [facility] [address] [place] [address] Glucose [Mass/Vol] 146 mg/dL High 70-100 [facility] Comment on above: Performed By: #### L IPD2, HEMDF, TSH5, CMP3, HA1C2 #### [facility] [address] [place] [address] Protein [Mass/Vol] 7.1 g/dL Normal 6.3-8.2 [facility] Comment on above: Performed By: #### L IPD2, HEMDF, TSH5, CMP3, HA1C2 #### [facility] [address] [place] [address] Urea nitrogen [Mass/Vol] 20 mg/dL Normal 7-20 [facility] Comment on above: Performed By: #### L IPD2, HEMDF, TSH5, CMP3, HA1C2 #### [facility] [address] [place] [address] Chloride [Moles/Vol] 105 mmol/L Normal 98-107 [facility] Comment on above: Performed By: #### L IPD2, HEMDF, TSH5, CMP3, HA1C2 #### [facility] [address] [place] [address] Potassium [Moles/Vol] 4.1 mmol/L Normal 3.5-5.1 [facility] Comment on above: Performed By: #### L IPD2, HEMDF, TSH5, CMP3, HA1C2 #### [facility] [address] [place] [address] Sodium [Moles/Vol] 139 mmol/L Normal 135-145 [facility] Comment on above: Performed By: #### L IPD2, HEMDF, TSH5, CMP3, HA1C2 #### [facility] [address] [place] [address] Albumin [Mass/Vol] 4.4 g/dL Normal 3.5-5.0 [facility] Comment on above: Performed By: #### L IPD2, HEMDF, TSH5, CMP3, HA1C2 #### [facility] [address] [place] [address] Comprehensive Metabolic Pane denny 05-12-2020 Albumin [Mass/Vol] 4.4 g/dL 3.5 - 5 g/dL [place] ALP [Catalytic activity/Vol] 104 U/L 38 - 126 U/L [place] ALT [Catalytic activity/Vol] 17 U/L 0 - 34 U/L [place] Comment on above: The ALT test is perf ormed by an updated assay method. Please note that the reference intervals have been changed and are now sex specific. Anion gap [Moles/Vol] 9 mmol/L [place] AST [Catalytic activity/Vol] 20 U/L 15 - 46 U/L [place] Bilirubin Ql (U) 1.0 mg/dL 0.2 - 1.3 mg/dL [place] Calcium [Mass/Vol] 10.5 mg/dL High 8.4 - 10. 4 mg/dL [place] Chloride [Moles/Vol] 105 mmol/L 98 - 10 7 mmol/L [place] CO2 [Moles/Vol] 25 mmol/L 22 - 30 mmol/L [place] Creatinine [Mass/Vol] 0.59 mg/dL 0.52 - 1.25 mg/dL [place] EGFR IF NonAfrican [place]hi 83.9 mL/min >60 [place] Comment on above: KDIGO guidelines pro [...] MDRD (S/P/Bld) [Vol rate/Area] mL/min/{1.73_m2} >60 mL/min [place] Glucose [Mass/Vol] 146 mg/dL High 70 - 100 mg/dL [place] Potassium [Moles/Vol] 4.1 mmol/L 3.5 - 5.1 mmol/L [place] Protein [Mass/Vol] 7.1 g/dL 6.3 - 8.2 g/dL [place] Sodium [Moles/Vol] 139 mmol/L 135 - 145 mmol/L [place] Urea nitrogen [Mass/Vol] 20 mg/dL 7 - 20 mg/d L [place] Hemoglobin A1Con 05-12-2020 HbA1c (Bld) [Mass fraction] 6.7 % High 4.0-6.0 [facility] Comment on above: Result Comment: --Hg bA1C levels may not be accurate in patients who have renal disease, received recent blood transfusions, are anemic, or who have dyshemoglobinemia. Performed By: #### L IPD2, HEMDF, TSH5, CMP3, HA1C2 #### [facility] [address] [place] [address] HbA1c (Bld) [Mass fraction] 146 mg/dL Normal [facility] Comment on above: Performed By: #### L IPD2, HEMDF, TSH5, CMP3, HA1C2 #### [facility] [address] [place] [address] eAG 146 mg/dL [place] HbA1c (Bld) [Mass fraction] 6.7 % High 4 - 6 % [place] Comment on above: --HgbA1C levels may not be accurate in patients who have renal disease, received recent blood transfusions, are anemic, or who have dyshemoglobinemia. Interpretation and review of laboratory results Abnormal [place] Test Performed by [facility], [address] , [address] Hemogram w/ [employer] 05-12 Abs Baso Cnt 0.1 10*3/uL Normal 0.0-0.2 [facility] Comment on above: Performed By: #### L IPD2, HEMDF, TSH5, CMP3, HA1C2 #### [facility] [address] [place] [address] Abs Neutrophile Cnt 4.8 10*3/uL Normal 1.8-7.0 [facility] Comment on above: Performed By: #### L IPD2, HEMDF, TSH5, CMP3, HA1C2 #### [facility] [address] [place] [address] Basophils/100 WBC (Bld) 0.9 % Normal 0.0-2.0 [facility] Comment on above: Performed By: #### L IPD2, HEMDF, TSH5, CMP3, HA1C2 #### [facility] [address] [place] [address] Eosinophils (Bld) [#/Vol] 0.2 10*3/uL Normal 0.0-0.5 [facility] Comment on above: Performed By: #### L IPD2, HEMDF, TSH5, CMP3, HA1C2 #### [facility] [address] [place] [address] Eosinophils/100 WBC (Bld) 2.5 % Normal 1.0-6.0 [facility] Comment on above: Performed By: #### L IPD2, HEMDF, TSH5, CMP3, HA1C2 #### [facility] [address] [place] [address] Erythrocyte distribution width (RBC) [Ratio] 12.9 % Normal 11.5-14.5 [facility] Comment on above: Performed By: #### L IPD2, HEMDF, TSH5, CMP3, HA1C2 #### [facility] [address] [place] [address] Granulocytes/100 WBC (Bld) 52.8 % Normal 40.0-80.0 [facility] Comment on above: Performed By: #### L IPD2, HEMDF, TSH5, CMP3, HA1C2 #### [facility] [address] [place] [address] Hematocrit (Bld) [Volume fraction] 46.8 % Normal 35.0-47.0 [facility] Comment on above: Performed By: #### L IPD2, HEMDF, TSH5, CMP3, HA1C2 #### [facility] [address] [place] [address] Hemoglobin (Bld) [Mass/Vol] 16.2 g/dL High 11.7-16.0 [facility] Comment on above: Performed By: #### L IPD2, HEMDF, TSH5, CMP3, HA1C2 #### [facility] [address] [place] [address] Lymphocytes (Bld) [#/Vol] 3.4 10*3/uL Normal 1.0-4.3 [facility] Comment on above: Performed By: #### L IPD2, HEMDF, TSH5, CMP3, HA1C2 #### [facility] [address] [place] [address] Lymphocytes/100 WBC (Bld) 36.9 % Normal 20.0-40.0 [facility] Comment on above: Performed By: #### L IPD2, HEMDF, TSH5, CMP3, HA1C2 #### [facility] [address] [place] [address] MCH (RBC) [Entitic mass] 31.9 pg Normal 26.0-34.0 [facility] Comment on above: Performed By: #### L IPD2, HEMDF, TSH5, CMP3, HA1C2 #### [facility] [address] [place] [address] MCHC (RBC) [Mass/Vol] 34.7 % Normal 32.0-36.0 [facility] Comment on above: Performed By: #### L IPD2, HEMDF, TSH5, CMP3, HA1C2 #### [facility] [address] [place] [address] MCV (RBC) [Entitic vol] 91.8 fL Normal 79.0-98.0 [facility] Comment on above: Performed By: #### L IPD2, HEMDF, TSH5, CMP3, HA1C2 #### [facility] [address] [place] [address] Monocytes (Bld) [#/Vol] 0.6 10*3/uL Normal 0.0-0.8 [facility] Comment on above: Performed By: #### L IPD2, HEMDF, TSH5, CMP3, HA1C2 #### [facility] [address] [place] [address] Monocytes/100 WBC (Bld) 6.9 % Normal 2.0-10.0 [facility] Comment on above: Performed By: #### L IPD2, HEMDF, TSH5, CMP3, HA1C2 #### [facility] [address] [place] [address] Platelet mean volume (Bld) [Entitic vol] 7.7 fL Normal 7.4-10.4 [facility] Comment on above: Performed By: #### L IPD2, HEMDF, TSH5, CMP3, HA1C2 #### [facility] [address] [place] [address] Platelets (Bld) [#/Vol] 298 10*3/uL Normal 140-440 [facility] Comment on above: Performed By: #### L IPD2, HEMDF, TSH5, CMP3, HA1C2 #### [facility] [address] [place] [address] RBC (Bld) [#/Vol] 5.10 10*6/uL Normal 3.80-5.20 [facility] Comment on above: Performed By: #### L IPD2, HEMDF, TSH5, CMP3, HA1C2 #### [facility] [address] [place] [address] WBC (Bld) [#/Vol] 9.1 10*3/uL Normal 3.6-10.7 [facility] Comment on above: Performed By: #### L IPD2, HEMDF, TSH5, CMP3, HA1C2 #### [facility] [address] [place] [address] Lipid Panelon 05-12-2020 Cholesterol in HDL [Mass/Vol] 54 mg/dL Normal 40-60 [facility] Comment on above: Performed By: #### L IPD2, HEMDF, TSH5, CMP3, HA1C2 #### [facility] [address] [place] [address] Cholesterol.total/Choles terol in HDL [Mass ratio] 5 Normal [facility] Comment on above: Result Comment: Ref Range: < 3 Low Risk for CHD 3-6 Mod Risk for CHD > 6 High Risk for CHD Performed By: #### L IPD2, HEMDF, TSH5, CMP3, HA1C2 #### [facility] [address] [place] [address] Protein [Mass/Vol] 151 mg/dL Abnormal <100 [facility] Comment on above: Performed By: #### L IPD2, HEMDF, TSH5, CMP3, HA1C2 #### [facility] [address] [place] [address] Triglyceride [Mass/Vol] 194 mg/dL Abnormal <150 [facility] Comment on above: Performed By: #### L IPD2, HEMDF, TSH5, CMP3, HA1C2 #### [facility] [address] [place] [address] Cholesterol [Mass/Vol] 244 mg/dL Abnormal < [address] [facility] Comment on above: Performed By: #### L IPD2, HEMDF, TSH5, CMP3, HA1C2 #### [facility] [address] [place] [address] Cholesterol [Mass/Vol] 244 mg/dL Abnormal <200 [place] Cholesterol in HDL [Mass/Vol] 54 mg/dL 40 - 60 mg/dL [place] Cholesterol in LDL [Mass/Vol] 151 mg/dL Abnormal <100 [place] Cholesterol.total/Choles terol in HDL [Mass ratio] 5 {ratio} [place] Comment on above: Ref Range: < 3 Low Risk for CHD 3-6 Mod Risk for CHD > 6 High Risk for CHD Triglyceride [Mass/Vol] 194 mg/dL Abnormal <150 [facility], [place] Otheron 05-12-2020 Interpretation and review of laboratory results Abnormal [place] Test Performed by [facility], [address] , [address] TSH without Reflexon 020 Interpretation and review of laboratory results Abnormal [place] TSH Qn 7.501 u[IU]/mL High 0.465 - 4.68 u[IU]/mL [place] Test Performed by [facility], [address] , [place] [id number] [facility] [place], [place] Thyroid Stim. Hormoneon 10-0 Thyroid Stim. Hormone 7.501 u[IU]/mL High 0.465-4.68 0 [facility] Comment on above: Performed By: #### L IPD2, HEMDF, TSH5, CMP3, HA1C2 #### [facility] [address] [place] [address] Glucose,Bedsideon 04-30-2020 Glucose [Mass/Vol] 131 mg/dL High 70-100 [facility] Comment on above: Result Comment: Test performed by glucose meter. Results may be 10%-15% lower than serum/plasma values. (CLIA ID [id number]) Performed By: #### L IPD2, HEMDF, TSH5, CMP3, HA1C2 #### [facility] [address] [place] [address] Glucose [Mass/Vol] 137 mg/dL High 70-100 [facility] Comment on above: Result Comment: Test performed by glucose meter. Results may be 10%-15% lower than serum/plasma values. (CLIA ID [id number]) Performed By: #### B GLU #### [facility] [address] [place] [address] [id number] 04-30-2020 SARS-CoV-2 SARS-CoV-2 --> Status: F Not Detected Expected Result: Not Detected _ Real-time, RT-PCR performed on the [employer] System by the [facility] Microbiology Service. Negative results do not preclude SARS-CoV-2 infection and should not be used as the sole basis for treatment or other patient management decisions. This assay was developed by [employer] and distributed under an Emergency Use Authorization (EUA) granted by the FDA for the qualitative detection of SARS-CoV-2 nucleic acid. Results were determined from a pool consisting of specimens from additional patients. This test was modified, and its performance characteristics, showing minimal loss of sensitivity, have been validated by the [facility]. Approval is pending review by the U. S. Food and Drug Administration. If symptoms are severe and persist, testing a new specimen may be warranted. Additionally, IgG testing may be considered for patients more than 7-10 days post onset of symptoms. Expected Result: Not Detected _ Real-time, RT-PCR performed on the [employer] System by the [facility] Microbiology Service. Negative results do not preclude SARS-CoV-2 infection and should not be used as the sole basis for treatment or other patient management decisions. This assay was developed by [employer] and distributed under an Emergency Use Authorization (EUA) granted by the FDA for the qualitative detection of SARS-CoV-2 nucleic acid. Results were determined from a pool consisting of specimens from additional patients. This test was modified, and its performance characteristics, showing minimal loss of sensitivity, have been validated by the [facility]. Approval is pending review by the U. S. Food and Drug Administration. If symptoms are severe and persist, testing a new specimen may be warranted. Additionally, IgG testing may be considered for patients more than 7-10 days post onset of symptoms. Normal [facility] Comment on above: Order Comment: Speci men Source Comment:Nasopharyngeal Swab Performed By: #### L IPD2, HEMDF, TSH5, CMP3, HA1C2 #### [facility] [address] [place] [address] Basic Metabolic Panelon 04-12 Calcium [Mass/Vol] 9.7 mg/dL Normal 8.4-10.4 [facility] Comment on above: Performed By: #### L IPD2, HEMDF, TSH5, CMP3, HA1C2 #### [facility] [address] [place] [address] Glucose [Mass/Vol] 134 mg/dL High 70-100 [facility] Comment on above: Performed By: #### L IPD2, HEMDF, TSH5, CMP3, HA1C2 #### [facility] [address] [place] [address] Anion gap [Moles/Vol] 7 Normal [facility] Comment on above: Performed By: #### L IPD2, HEMDF, TSH5, CMP3, HA1C2 #### [facility] [address] [place] [address] CO2 [Moles/Vol] 26 mmol/L Normal 22-30 [facility] Comment on above: Performed By: #### L IPD2, HEMDF, TSH5, CMP3, HA1C2 #### [facility] [address] [place] [address] Creatinine [Mass/Vol] 0.48 mg/dL Low 0.52-1.25 [facility] Comment on above: Performed By: #### L IPD2, HEMDF, TSH5, CMP3, HA1C2 #### [facility] [address] [place] [address] GFR/1.73 sq M predicted among blacks MDRD (S/P/Bld) [Vol rate/Area] mL/min/{1.73_m2} Normal >60 [facility] Comment on above: Performed By: #### L IPD2, HEMDF, TSH5, CMP3, HA1C2 #### [facility] [address] [place] [address] GFR/1.73 sq M predicted among non-blacks MDRD (S/P/Bld) [Vol rate/Area] 89.8 mL/min/{1.73_m2} Normal >60 [facility] Comment on above: Result Comment: KDIG [...] L IPD2, HEMDF, TSH5, CMP3, HA1C2 #### [facility] [address] [place] [address] Urea nitrogen [Mass/Vol] 16 mg/dL Normal 7-20 [facility] Comment on above: Performed By: #### L IPD2, HEMDF, TSH5, CMP3, HA1C2 #### [facility] [address] [place] [address] Chloride [Moles/Vol] 108 mmol/L High 98-107 [facility] Comment on above: Performed By: #### L IPD2, HEMDF, TSH5, CMP3, HA1C2 #### [facility] [address] [place] [address] Potassium [Moles/Vol] 3.8 mmol/L Normal 3.5-5.1 [facility] Comment on above: Performed By: #### L IPD2, HEMDF, TSH5, CMP3, HA1C2 #### [facility] [address] [place] [address] Sodium [Moles/Vol] 141 mmol/L Normal 135-145 [facility] Comment on above: Performed By: #### L IPD2, HEMDF, TSH5, CMP3, HA1C2 #### [facility] [address] [place] [address] Glucose,Bedsideon 04-29-2020 Glucose [Mass/Vol] 250 mg/dL High 70-100 [facility] Comment on above: Result Comment: Test performed by glucose meter. Results may be 10%-15% lower than serum/plasma values. (CLIA ID [id number]) Performed By: #### B GLU #### [facility] [address] [place] [address] Glucose [Mass/Vol] 133 mg/dL High 70-100 [facility] Comment on above: Result Comment: Test performed by glucose meter. Results may be 10%-15% lower than serum/plasma values. (CLIA ID [id number]) Performed By: #### L IPD2, HEMDF, TSH5, CMP3, HA1C2 #### [facility] [address] [place] [address] Glucose [Mass/Vol] 136 mg/dL High 70-100 [facility] Comment on above: Result Comment: Test performed by glucose meter. Results may be 10%-15% lower than serum/plasma values. (CLIA ID [id number]) Performed By: #### L IPD2, HEMDF, TSH5, CMP3, HA1C2 #### [facility] [address] [place] [address] Glucose [Mass/Vol] 154 mg/dL High 70-100 [facility] Comment on above: Result Comment: Test performed by glucose meter. Results may be 10%-15% lower than serum/plasma values. (CLIA ID [id number]) Performed By: #### L IPD2, HEMDF, TSH5, CMP3, HA1C2 #### [facility] [address] [place] [address] Hemogramon 04-29-2020 Erythrocyte distribution width (RBC) [Ratio] 13.1 % Normal 11.5-14.5 [facility] Comment on above: Performed By: #### L IPD2, HEMDF, TSH5, CMP3, HA1C2 #### [facility] [address] [place] [address] Hematocrit (Bld) [Volume fraction] 43.7 % Normal 35.0-47.0 [facility] Comment on above: Performed By: #### L IPD2, HEMDF, TSH5, CMP3, HA1C2 #### [facility] [address] [place] [address] Hemoglobin (Bld) [Mass/Vol] 14.3 g/dL Normal 11.7-16.0 [facility] Comment on above: Performed By: #### L IPD2, HEMDF, TSH5, CMP3, HA1C2 #### [facility] [address] [place] [address] MCH (RBC) [Entitic mass] 30.5 pg Normal 26.0-34.0 [facility] Comment on above: Performed By: #### L IPD2, HEMDF, TSH5, CMP3, HA1C2 #### [facility] [address] [place] [address] MCHC (RBC) [Mass/Vol] 32.8 % Normal 32.0-36.0 [facility] Comment on above: Performed By: #### L IPD2, HEMDF, TSH5, CMP3, HA1C2 #### [facility] [address] [place] [address] MCV (RBC) [Entitic vol] 92.9 fL Normal 79.0-98.0 [facility] Comment on above: Performed By: #### L IPD2, HEMDF, TSH5, CMP3, HA1C2 #### [facility] [address] [place] [address] Platelet mean volume (Bld) [Entitic vol] 7.4 fL Normal 7.4-10.4 [facility] Comment on above: Performed By: #### L IPD2, HEMDF, TSH5, CMP3, HA1C2 #### [facility] [address] [place] [address] Platelets (Bld) [#/Vol] 249 10*3/uL Normal 140-440 [facility] Comment on above: Performed By: #### L IPD2, HEMDF, TSH5, CMP3, HA1C2 #### [facility] [address] [place] [address] RBC (Bld) [#/Vol] 4.70 10*6/uL Normal 3.80-5.20 [facility] Comment on above: Performed By: #### L IPD2, HEMDF, TSH5, CMP3, HA1C2 #### [facility] [address] [place] [address] WBC (Bld) [#/Vol] 8.6 10*3/uL Normal 3.6-10.7 [facility] Comment on above: Performed By: #### L IPD2, HEMDF, TSH5, CMP3, HA1C2 #### [facility] [address] [place] [address] CKon 04-28-2020 CK [Catalytic activity/Vol] 62 U/L Normal 30-170 [facility] Comment on above: Performed By: #### L IPD2, HEMDF, TSH5, CMP3, HA1C2 #### [facility] [address] [place] [address] CTA Head/Neck w/ + w/o contr yony 04-28-2020 CTA Head/Neck w/ + w/o contrast Patient Name: RAUDEL AHUMADA CT Exam Date/Time 04/28/2020 00:51:25 EDT Exam CTA Head/Neck w/ + w/o contrast Ordering Physician GREGORIO KONG Accession Number [id number] CPT4 Codes Q9967 (CT ISOVUE [id number]), [id number] (), [address] () Reason For Exam also read out [...] Transcribed Date and Time: 04/28/2020 2:35 Normal [facility] Complete Urinalysison 2019 Bacteria LM.HPF (Urine sed) [#/Area] Moderate (6-50) Abnormal Negative [facility] [facility] Comment on above: Result Comment: . Performed By: #### B GLU #### [facility] [address] [place] [address] RBC LM.HPF (Urine sed) [#/Area] Negative Normal 0-2 [facility] Comment on above: Result Comment: . Performed By: #### B GLU #### [facility] [address] [facility] [place] [address] Squamous Epithelial 3 - 5 Normal 3-5 [facility] Comment on above: Result Comment: . Performed By: #### B GLU #### [facility] [address] [facility] [place] [address] VOLUME, URINE 12 ml Normal [facility] Comment on above: Result Comment: . Performed By: #### B GLU #### [facility] [address] [facility] [place] [address] WBC LM.HPF (Urine sed) [#/Area] 6 - 10 Abnormal 0-5 [facility] Comment on above: Result Comment: . Performed By: #### B GLU #### [facility] [address] [place] [address] Appearance (U) Clear Normal Clear [facility] Comment on above: Result Comment: . Performed By: #### B GLU #### [facility] [address] [place] [address] Bilirubin,Urine Negative Normal Negative [facility] Comment on above: Result Comment: . Performed By: #### B GLU #### [facility] [address] [place] [address] Color (U) YELLOW Normal Lt. Yellow [facility] Comment on above: Result Comment: . Performed By: #### B GLU #### [facility] [address] [place] [address] Glucose Ql (U) Normal Normal Normal (<70) [facility] Comment on above: Result Comment: . Performed By: #### B GLU #### [facility] [address] [place] [address] Ketone,Urine Trace Abnormal Negative [facility] Comment on above: Result Comment: . Performed By: #### B GLU #### [facility] [address] [place] [address] Leukocytes,Urine 250 Philipp/uL Abnormal Negative [facility] Comment on above: Result Comment: . Performed By: #### B GLU #### [facility] [address] [place] [address] Nitrites,Urine Negative Normal Negative [facility] Comment on above: Result Comment: . Performed By: #### B GLU #### [facility] [address] [place] [address] Occult Blood,Urine Negative Normal Negative [facility] Comment on above: Result Comment: . Performed By: #### B GLU #### [facility] [address] [place] [address] pH (U) 5.5 Normal 5.0-8.0 [facility] Comment on above: Result Comment: . Performed By: #### B GLU #### [facility] [address] [place] [address] Protein (U) [Mass/Vol] 70 mg/dL Abnormal Negative [facility] Comment on above: Result Comment: . Performed By: #### B GLU #### [facility] [address] [place] [address] Specific [place],Urine 1.028 Normal 1.005 - 1.030 [facility] Comment on above: Result Comment: . Performed By: #### B GLU #### [facility] [address] [place] [address] Urobilinogen,Urine Normal Normal Normal (0-1) [facility] Comment on above: Result Comment: . Performed By: #### B GLU #### [facility] [address] [place] [address] Echo Complete w/wo Contrasto n 04-28-2020 Echo Complete w/wo Contrast Patient Name: RAUDEL AHUMADA Ultrasound Exam Date/Time 04/28/2020 09:01:04 EDT Exam Echo Complete w/wo Contrast Ordering Physician [address] Accession Number [id number] Reason For Exam syncope Report TRANSTHORACIC ECHOCARDIOGRAM PATIENT: Raudel Ahumada STUDY DATE: 04/28/2020 : 1935 AGE: 84 HT/WT: 157.5 cm (62 124.7 kg in) (274.4 lb) GENDER: F BP: 143 / 63 LOCATION: [facility] PATIENT Inpatient [facility] STATUS: *ORDERING PHYSICIAN: * Gregorio Sheehan *FELLOW: * Monika De La Torre *READING PHYSICIAN: Mine Doty *PROFILER: Mine Madrigal DO, FSVM, [facility] RDCS, AE INDICATIONS: SYNCOPE. CONCLUSIONS SUMMARY: 1. [...] Electronically signed by Soren Madrigal DO, FS, [facility] 04/28/2020 11:33 Prior Signatures: Final Dictated: 04/28/2020 11:33 am Dictating Physician: DO MADRIGAL JOSEPH Signed Date and Time: 04/28/2020 11:33 am Signed by: DO MADRIGAL JOSEPH Normal [facility] Glucose,Bedsideon 04-28-2020 Glucose [Mass/Vol] 187 mg/dL High 70-100 [facility] Comment on above: Result Comment: Test performed by glucose meter. Results may be 10%-15% lower than serum/plasma values. (CLIA ID [id number]) Performed By: #### L IPD2, HEMDF, TSH5, CMP3, HA1C2 #### [facility] [address] [place] [address] Glucose [Mass/Vol] 147 mg/dL High 70-100 [facility] Comment on above: Result Comment: Test performed by glucose meter. Results may be 10%-15% lower than serum/plasma values. (CLIA ID [id number]) Performed By: #### L IPD2, HEMDF, TSH5, CMP3, HA1C2 #### [facility] [address] [place] [address] Glucose [Mass/Vol] 189 mg/dL High 70-100 [facility] Comment on above: Result Comment: Test performed by glucose meter. Results may be 10%-15% lower than serum/plasma values. (CLIA ID [id number]) Performed By: #### L IPD2, HEMDF, TSH5, CMP3, HA1C2 #### [facility] [address] [place] [address] Glucose [Mass/Vol] 165 mg/dL High 70-100 [facility] Comment on above: Result Comment: Test performed by glucose meter. Results may be 10%-15% lower than serum/plasma values. (CLIA ID [id number]) Performed By: #### L IPD2, HEMDF, TSH5, CMP3, HA1C2 #### [facility] [address] [place] [address] Glucose [Mass/Vol] 184 mg/dL High 70-100 [facility] Comment on above: Result Comment: Test performed by glucose meter. Results may be 10%-15% lower than serum/plasma values. (CLIA ID [id number]) Performed By: #### L IPD2, HEMDF, TSH5, CMP3, HA1C2 #### [facility] [address] [place] [address] Lipid Panelon 04-28-2020 Cholesterol in HDL [Mass/Vol] 38 mg/dL Low 40-60 [facility] Comment on above: Performed By: #### L IPD2, HEMDF, TSH5, CMP3, HA1C2 #### [facility] [address] [place] [address] Cholesterol.total/Choles terol in HDL [Mass ratio] 5 Normal [facility] Comment on above: Result Comment: Ref Range: < 3 Low Risk for CHD 3-6 Mod Risk for CHD > 6 High Risk for CHD Performed By: #### L IPD2, HEMDF, TSH5, CMP3, HA1C2 #### [facility] [address] [place] [address] Protein [Mass/Vol] 136 mg/dL Abnormal <100 [facility] Comment on above: Performed By: #### L IPD2, HEMDF, TSH5, CMP3, HA1C2 #### [facility] [address] [place] [address] Cholesterol [Mass/Vol] 203 mg/dL Abnormal < 200 [facility] Comment on above: Performed By: #### L IPD2, HEMDF, TSH5, CMP3, HA1C2 #### [facility] [address] [place] [address] Triglyceride [Mass/Vol] 143 mg/dL Normal <150 [facility] Comment on above: Performed By: #### L IPD2, HEMDF, TSH5, CMP3, HA1C2 #### [facility] [address] [place] [address] MRI Brain w/o Contraston MRI Brain w/o Contrast Patient Name: RAUDEL AHUMADA MRI Exam Date/Time 04/28/2020 11:31:44 EDT Exam MRI Brain w/o Contrast Ordering Physician GREGORIO KONG Accession Number [id number] CPT4 Codes 81474 () Reason For Exam syncope x2 Report [...] Transcribed Date and Time: 04/28/2020 12:37 Normal [facility] Troponin Ion 04-28-2020 Troponin I.cardiac [Mass/Vol] 0.018 ng/mL Normal 0.000-0.034 [facility] Comment on above: Result Comment: . Performed By: #### L IPD2, HEMDF, TSH5, CMP3, HA1C2 #### [facility] [address] [place] [address] CR Chest Portableon 04-27-20 20 CR Chest Portable Patient Name: RAUDEL AHUMADA Diagnostic Radiology Exam Date/Time 04/27/2020 21:35:51 EDT Exam CR Chest Portable Ordering Physician HERB HILLMAN Accession Number [id number] CPT4 Codes 19943 () Reason For Exam syncvope Report PORTABLE [...] No acute process. Report Dictated on Workstation: [facility] Final Dictating Physician: DO LLOYD ALFRED Signed Date and Time: 04/27/2020 9:41 pm Signed by: DO LLOYD ALFRED Transcribed Date and Time: 04/27/2020 9:42 Normal [facility] Comp Metabolic Panelon 04-27 ALP [Catalytic activity/Vol] 113 U/L Normal 38-126 [facility] Comment on above: Performed By: #### B GLU #### [facility] [address] [place] [address] ALT [Catalytic activity/Vol] 18 U/L Normal 0-34 [facility] Comment on above: Result Comment: The ALT test is performed by an updated assay method. Please note that the reference intervals have been changed and are now sex specific. Performed By: #### B GLU #### [facility] [address] [place] [address] AST [Catalytic activity/Vol] 28 U/L Normal 15-46 [facility] Comment on above: Performed By: #### B GLU #### [facility] [address] [place] [address] Calcium [Mass/Vol] 10.2 mg/dL Normal 8.4-10.4 [facility] Comment on above: Performed By: #### B GLU #### [facility] [address] [place] [address] Glucose [Mass/Vol] 138 mg/dL High 70-100 [facility] Comment on above: Performed By: #### B GLU #### [facility] [address] [place] [address] Protein [Mass/Vol] 7.3 g/dL Normal 6.3-8.2 [facility] Comment on above: Performed By: #### B GLU #### [facility] [address] [place] [address] Urea nitrogen [Mass/Vol] 25 mg/dL High 7-20 [facility] Comment on above: Performed By: #### B GLU #### [facility] [address] [place] [address] Anion gap [Moles/Vol] 8 Normal [facility] Comment on above: Performed By: #### B GLU #### [facility] [address] [place] [address] Bilirubin [Mass/Vol] 0.8 mg/dL Normal 0.2-1.3 [facility] Comment on above: Performed By: #### B GLU #### [facility] [address] [place] [address] CO2 [Moles/Vol] 26 mmol/L Normal 22-30 [facility] Comment on above: Performed By: #### B GLU #### [facility] [address] [place] [address] Creatinine [Mass/Vol] 0.51 mg/dL Low 0.52-1.25 [facility] Comment on above: Performed By: #### B GLU #### [facility] [address] [place] [address] GFR/1.73 sq M predicted among blacks MDRD (S/P/Bld) [Vol rate/Area] mL/min/{1.73_m2} Normal >60 [facility] Comment on above: Performed By: #### B GLU #### [facility] [address] [place] [address] GFR/1.73 sq M predicted among non-blacks MDRD (S/P/Bld) [Vol rate/Area] 88.0 mL/min/{1.73_m2} Normal >60 [facility] Comment on above: Result Comment: KDIG [...] secretion. Performed By: #### B GLU #### [facility] [address] [place] [address] Albumin [Mass/Vol] 4.2 g/dL Normal 3.5-5.0 [facility] Comment on above: Performed By: #### B GLU #### [facility] [address] [place] [address] Potassium [Moles/Vol] 3.9 mmol/L Normal 3.5-5.1 [facility] Comment on above: Performed By: #### B GLU #### [facility] [address] [place] [address] Chloride [Moles/Vol] 106 mmol/L Normal 98-107 [facility] Comment on above: Performed By: #### B GLU #### [facility] [address] [place] [address] Sodium [Moles/Vol] 140 mmol/L Normal 135-145 [facility] Comment on above: Performed By: #### B GLU #### [facility] [address] [place] [address] ED Provider Noteon 0 ED Provider Note SHB 4S TELEMETRY eMERGENCY dEPARTMENT eNCOUnter Pt Name: Raudel Auhmada Birthdate 1935 Date of evaluation: 04/27/2020 Provider: [...] MOUTH EVERY DAY, Disp-90 tablet,R-1Normal !! Handicap [facility] Starting Sat04/09/2019, Disp-1 each, R-0, PrintDX arthritis 5 years !! Handicap [facility] Starting Sat04/08/2019, Disp-1 each, R-0, PrintDX arthritis 5 years B Ualaodc-Pysfuv-KB (VITAMIN B50 COMPLEX PO) Take by mouthHistorical Med VITAMIN E PO Take by mouth Indications: 2000units dailyHistorical Med Multiple Vitamins-Minerals (MULTIVITAMIN ADULT PO) Take by mouthHistorical Med !! Handicap [facility] Starting Sat12/31/2018, Disp-1 each, R-0, PrintDX Arthritis [facility] each, R-3, PrintDx E11.9 TEST ONCE [...] on phone: None Gets together: None Attends sabianist service: None Active member of club or [...] Response: Oriented Best Motor Response: Obeys commands Vik Coma Scale Score: 15 PHYSICAL EXAM (5+ [...] within normal limits Narrative: [facility] by [facility], [address] , [place] [address] CBC WITH AUTO DIFFERENTIAL - Abnormal; Notable for the following components: Absolute Neut # 7.1 (*) All other components within normal limits Narrative: Test Performed by [facility], [address] , [place], [place] [address] URINALYSIS - Abnormal; Notable for the following components: Total Protein, Urine 70 (*) Ketones, Urine Trace (*) LEUKOCYTES, UA 250 (*) WBC, UA 6-10 (*) Bacteria, UA Moderate (6-50) (*) All other components within normal limits Narrative: Test Performed by [facility], [address] , [place], [place] [address] LIPID PANEL - Abnormal; Notable for the following components: Cholesterol 203 (*) HDL 38 (*) LDL Cholesterol 136 (*) All other components within normal limits Narrative: Test Performed by [facility], [address] [facility] [address] [place] [address] BASIC METABOLIC PANEL - Abnormal; Notable for the following components: Chloride 108 (*) Glucose 134 (*) CREATININE 0.48 (*) All other components within normal limits Narrative: Test Performed by [facility], [address] [place] [address] POCT GLUCOSE - Abnormal; Notable for the following components: POC Glucose 184 (*) All other components within normal limits Narrative: Test Performed by [facility], [address] [place] [address] POCT GLUCOSE - Abnormal; Notable for the following components: POC Glucose 165 (*) All other components within normal limits Narrative: Test Performed by [facility], [address] [place] [address] POCT GLUCOSE - Abnormal; Notable for the following components: POC Glucose 189 (*) All other components within normal limits Narrative: Test Performed by [facility], [address] [place] [address] POCT GLUCOSE - Abnormal; Notable for the following components: POC Glucose 147 (*) All other components within normal limits Narrative: Test Performed by [facility], [address] [place] [address] POCT GLUCOSE - Abnormal; Notable for the following components: POC Glucose 187 (*) All other components within normal limits Narrative: Test Performed by [facility], [address] [place] [address] POCT GLUCOSE - Abnormal; Notable for the following components: POC Glucose 154 (*) All other components within normal limits Narrative: Test Performed by [facility], [address] [place] [address] POCT GLUCOSE - Abnormal; Notable for the following components: POC Glucose 136 (*) All other components within normal limits Narrative: Test Performed by [facility], [address] [place], [place], [place] [address] POCT GLUCOSE - Abnormal; Notable for the following components: POC Glucose 133 (*) All other components within normal limits Narrative: Test Performed by [facility], [address] [place], [place] [address] POCT GLUCOSE - Abnormal; Notable for the following components: POC Glucose 250 (*) All other components within normal limits Narrative: Test Performed by [facility], [address] [place], [place] [address] POCT GLUCOSE - Abnormal; Notable for the following components: POC Glucose 137 (*) All other components within normal limits Narrative: Test Performed by [facility], [address] [place], [place], [place] [address] POCT GLUCOSE - Abnormal; Notable for the following components: POC Glucose 131 (*) All other components within normal limits Narrative: Test Performed by [facility], [address] [place], [place], [place] [address] BRAIN NATRIURETIC PEPTIDE Narrative: Test Performed by [facility], [address] , [place], [place] [address] LIPASE Narrative: Test Performed by [facility] [facility], [address] , [place], [place] [address] MAGNESIUM Narrative: Test Performed by [facility], [address] , [place], [place] [address] TROPONIN Narrative: Test Performed by [facility] [employer] [facility], [address] , [place], [place] [address] CK Narrative: Test Performed by [facility], [address] [place], [place], [place] [address] TROPONIN Narrative: Test Performed by [facility], [address] [place], [place] [address] CBC Narrative: Test Performed by [facility], [address] [place], [place] [address] COVID-19 Narrative: Test Performed by [facility], [address] [place] [address] Specimen Source Comment:Nasopharynge al Swab POCT GLUCOSE [...] injection 75 mL (75 mLs Intravenous Given 04/28/2035) MDM Number of Diagnoses or Management Options [...] No treatment, delayed treatment, observation and referral [place] protocol: Procedure explained and questions answered to [...] method: Pressure wash Skin repair: Repair method: Leonid Number of leonid: 8 Approximation: Approximation: Close Post-procedure details: Dressing: Open (no dressing) Patient tolerance of procedure: Tolerated well, no immediate complications FINAL IMPRESSION 1. Syncope and collapse 2. Injury of head, initial encounter 3. Laceration of scalp, initial encounter DISPOSITION/PLAN DISPOSITION Admitted 04/27/2020 10:01:51 PM PATIENT REFERRED TO: Maida Doshi MD [address] [place], [place] [id number] DISCHARGE MEDICATIONS: Discharge Medication List as of [...] 1742 Herb Moreno MD 06/01/20 2038 Normal [facility] Hemogram w/ Autodiffon 04-27 Abs Baso Cnt 0.1 10*3/uL Normal 0.0-0.2 [facility] Comment on above: Performed By: #### B GLU #### [facility] [address] [place] [address] Abs Neutrophile Cnt 7.1 10*3/uL High 1.8-7.0 [facility] Comment on above: Performed By: #### B GLU #### [facility] [address] [place] [address] Basophils/100 WBC (Bld) 1.2 % Normal 0.0-2.0 [facility] Comment on above: Performed By: #### B GLU #### [facility] [address] [place] [address] Eosinophils (Bld) [#/Vol] 0.2 10*3/uL Normal 0.0-0.5 [facility] Comment on above: Performed By: #### B GLU #### [facility] [address] [place] [address] Eosinophils/100 WBC (Bld) 2.4 % Normal 1.0-6.0 [facility] Comment on above: Performed By: #### B GLU #### [facility] [address] [place] [address] Erythrocyte distribution width (RBC) [Ratio] 13.2 % Normal 11.5-14.5 [facility] Comment on above: Performed By: #### B GLU #### [facility] [address] [place] [address] Granulocytes/100 WBC (Bld) 69.0 % Normal 40.0-80.0 [facility] Comment on above: Performed By: #### B GLU #### [facility] [address] [place] [address] Hematocrit (Bld) [Volume fraction] 45.6 % Normal 35.0-47.0 [facility] Comment on above: Performed By: #### B GLU #### [facility] [address] [place] [address] Hemoglobin (Bld) [Mass/Vol] 15.7 g/dL Normal 11.7-16.0 [facility] Comment on above: Performed By: #### B GLU #### [facility] [address] [place] [address] Lymphocytes (Bld) [#/Vol] 2.3 10*3/uL Normal 1.0-4.3 [facility] Comment on above: Performed By: #### B GLU #### [facility] [address] [place] [address] Lymphocytes/100 WBC (Bld) 21.8 % Normal 20.0-40.0 [facility] Comment on above: Performed By: #### B GLU #### [facility] [address] [place] [address] MCH (RBC) [Entitic mass] 31.5 pg Normal 26.0-34.0 [facility] Comment on above: Performed By: #### B GLU #### [facility] [address] [place] [address] MCHC (RBC) [Mass/Vol] 34.4 % Normal 32.0-36.0 [facility] Comment on above: Performed By: #### B GLU #### [facility] [address] [place] [address] MCV (RBC) [Entitic vol] 91.6 fL Normal 79.0-98.0 [facility] Comment on above: Performed By: #### B GLU #### [facility] [address] [place] [address] Monocytes (Bld) [#/Vol] 0.6 10*3/uL Normal 0.0-0.8 [facility] Comment on above: Performed By: #### B GLU #### [facility] [address] [place] [address] Monocytes/100 WBC (Bld) 5.6 % Normal 2.0-10.0 [facility] Comment on above: Performed By: #### B GLU #### [facility] [address] [place] [address] Platelet mean volume (Bld) [Entitic vol] 7.5 fL Normal 7.4-10.4 [facility] Comment on above: Performed By: #### B GLU #### [facility] [address] [place] [address] Platelets (Bld) [#/Vol] 286 10*3/uL Normal 140-440 [facility] Comment on above: Performed By: #### B GLU #### [facility] [address] [place] [address] RBC (Bld) [#/Vol] 4.98 10*6/uL Normal 3.80-5.20 [facility] Comment on above: Performed By: #### B GLU #### [facility] [address] [place] [address] WBC (Bld) [#/Vol] 10.4 10*3/uL Normal 3.6-10.7 [facility] Comment on above: Performed By: #### B GLU #### [facility] [address] [place] [address] Lipaseon 04-27-2020 Lipase [Catalytic activity/Vol] 75 U/L Normal 23-300 [facility] Comment on above: Performed By: #### B GLU #### [facility] [address] [place] [address] Magnesiumon 04-27-2020 Magnesium [Mass/Vol] 1.6 mg/dL Normal 1.6-2.3 [facility] Comment on above: Performed By: #### B GLU #### [facility] [address] [place] [address] NT pro BNPon 04-27-2020 Natriuretic peptide B (Bld) [Mass/Vol] 212 pg/mL Normal 0-450 [facility] Comment on above: Performed By: #### B GLU #### [facility] [address] [place] [address] Troponin Ion 04-27-2020 Troponin I.cardiac [Mass/Vol] ng/mL Normal 0.000-0.034 [facility] Comment on above: Result Comment: . Performed By: #### B GLU #### [facility] [address] [place] [address] CBC Auto Differentialon 01-10 Absolute Baso # 0.1 10*3/uL 0 - 0.2 10*3/uL [place], [place] Absolute Neut # 5.1 10*3/uL 1.8 - 7 10*3/uL [place] Basophils/100 WBC (Bld) 1.2 % 0 - 2 % [place], [place] Eosinophils (Bld) [#/Vol] 0.3 10*3/uL 0 - 0.5 10*3/uL [place] Eosinophils/100 WBC (Bld) 3.7 % 1 - 6 % [place] Erythrocyte distribution width (RBC) [Ratio] 12.9 % 11.5 - 14.5 % [place] Granulocytes/100 WBC (Bld) 54.5 % 40 - 80 % [place] Hematocrit (Bld) [Volume fraction] 42.9 % 35 - 47 % [place], [place] Hemoglobin (Bld) [Mass/Vol] 14.6 g/dL 11.7 - 16 g/dL [place] Lymphocytes (Bld) [#/Vol] 3.2 10*3/uL 1 - 4.3 10*3/uL [place] Lymphocytes/100 WBC (Bld) 33.8 % 20 - 40 % [place] MCH (RBC) [Entitic mass] 31.9 pg 26 - 34 pg [place] MCHC (RBC) [Mass/Vol] 34.2 % 32 - 36 % [place] MCV (RBC) [Entitic vol] 93.3 fL 79 - 98 fL [place] Monocytes (Bld) [#/Vol] 0.6 10*3/uL 0 - 0.8 10*3/uL [place] Monocytes/100 WBC (Bld) 6.8 % 2 - 10 % [place] Platelet mean volume (Bld) [Entitic vol] 7.7 fL 7.4 - 10.4 fL [place] Platelets (Bld) [#/Vol] 318 10*3/uL 140 - 440 10*3/uL [place] RBC (Bld) [#/Vol] 4.59 10*6/uL 3.8 - 5.2 10*6/uL [place] WBC (Bld) [#/Vol] 9.4 10*3/uL 3.6 - 10.7 10*3/uL [place] Test [facility], [address] , [place], [place] [id number] [place] [address] Comp Metabolic Panelon 01-19 ALP [Catalytic activity/Vol] 97 U/L Normal 38-126 [facility] Comment on above: Performed By: #### L IPD2, HEMDF, CMP3, HA1C2, TSH5 #### [facility] [address] [place] [address] ALT [Catalytic activity/Vol] 20 U/L Normal 0-34 [facility] Comment on above: Result Comment: The ALT test is performed by an updated assay method. Please note that the reference intervals have been changed and are now sex specific. Performed By: #### L IPD2, HEMDF, CMP3, HA1C2, TSH5 #### [facility] [address] [place] [address] Calcium [Mass/Vol] 9.9 mg/dL Normal 8.4-10.4 [facility] Comment on above: Performed By: #### L IPD2, HEMDF, CMP3, HA1C2, TSH5 #### [facility] [address] [place] [address] Glucose [Mass/Vol] 121 mg/dL High 70-100 [facility] Comment on above: Performed By: #### L IPD2, HEMDF, CMP3, HA1C2, TSH5 #### [facility] [address] [place] [address] Anion gap [Moles/Vol] 10 Normal [facility] Comment on above: Performed By: #### L IPD2, HEMDF, CMP3, HA1C2, TSH5 #### [facility] [address] [place] [address] AST [Catalytic activity/Vol] 24 U/L Normal 15-46 [facility] Comment on above: Performed By: #### L IPD2, HEMDF, CMP3, HA1C2, TSH5 #### [facility] [address] [place] [address] Bilirubin [Mass/Vol] 1.1 mg/dL Normal 0.2-1.3 [facility] Comment on above: Performed By: #### L IPD2, HEMDF, CMP3, HA1C2, TSH5 #### [facility] [address] [place] [address] CO2 [Moles/Vol] 26 mmol/L Normal 22-30 [facility] Comment on above: Performed By: #### L IPD2, HEMDF, CMP3, HA1C2, TSH5 #### [facility] [address] [place] [address] Creatinine [Mass/Vol] 0.69 mg/dL Normal 0.52-1.25 [facility] Comment on above: Performed By: #### L IPD2, HEMDF, CMP3, HA1C2, TSH5 #### [facility] [address] [place] [address] GFR/1.73 sq M predicted among blacks MDRD (S/P/Bld) [Vol rate/Area] mL/min/{1.73_m2} Normal >60 [facility] Comment on above: Performed By: #### L IPD2, HEMDF, CMP3, HA1C2, TSH5 #### [facility] [address] [place] [address] GFR/1.73 sq M predicted among non-blacks MDRD (S/P/Bld) [Vol rate/Area] 79.8 mL/min/{1.73_m2} Normal >60 [facility] Comment on above: Result Comment: KDIG [...] L IPD2, HEMDF, CMP3, HA1C2, TSH5 #### [facility] [address] [place] [address] Protein [Mass/Vol] 7.1 g/dL Normal 6.3-8.2 [facility] Comment on above: Performed By: #### L IPD2, HEMDF, CMP3, HA1C2, TSH5 #### [facility] [address] [place] [address] Urea nitrogen [Mass/Vol] 20 mg/dL Normal 7-20 [facility] Comment on above: Performed By: #### L IPD2, HEMDF, CMP3, HA1C2, TSH5 #### [facility] [address] [place] [address] Chloride [Moles/Vol] 104 mmol/L Normal 98-107 [facility] Comment on above: Performed By: #### L IPD2, HEMDF, CMP3, HA1C2, TSH5 #### [facility] [address] [place] [address] Potassium [Moles/Vol] 4.2 mmol/L Normal 3.5-5.1 [facility] Comment on above: Performed By: #### L IPD2, HEMDF, CMP3, HA1C2, TSH5 #### [facility] [address] [place] [address] Sodium [Moles/Vol] 140 mmol/L Normal 135-145 [facility] Comment on above: Performed By: #### L IPD2, HEMDF, CMP3, HA1C2, TSH5 #### [facility] [address] [place] [address] Albumin [Mass/Vol] 4.1 g/dL Normal 3.5-5.0 [facility] Comment on above: Performed By: #### L IPD2, HEMDF, CMP3, HA1C2, TSH5 #### [facility] [address] [place] [address] Comprehensive Metabolic Pane denny 01-20-2020 Albumin [Mass/Vol] 4.1 g/dL 3.5 - 5 g/dL [place] ALP [Catalytic activity/Vol] 97 U/L 38 - 126 U/L [place] ALT [Catalytic activity/Vol] 20 U/L 0 - 34 U/L [place] Comment on above: The ALT test is perf ormed by an updated assay method. Please note that the reference intervals have been changed and are now sex specific. Anion gap [Moles/Vol] 10 mmol/L [place] AST [Catalytic activity/Vol] 24 U/L 15 - 46 U/L [place] Bilirubin Ql (U) 1.1 mg/dL 0.2 - 1.3 mg/dL [place] Calcium [Mass/Vol] 9.9 mg/dL 8.4 - 10. 4 mg/dL [place] Chloride [Moles/Vol] 104 mmol/L 98 - 10 7 mmol/L [place] CO2 [Moles/Vol] 26 mmol/L 22 - 30 mmol/L [place] Creatinine [Mass/Vol] 0.69 mg/dL 0.52 - 1.25 mg/dL [place] EGFR IF NonAfrican [place]hi 79.8 mL/min >60 [place] Comment on above: KDIGO guidelines pro [...] MDRD (S/P/Bld) [Vol rate/Area] mL/min/{1.73_m2} >60 mL/min [place] Glucose [Mass/Vol] 121 mg/dL High 70 - 100 mg/dL [place] Potassium [Moles/Vol] 4.2 mmol/L 3.5 - 5.1 mmol/L [place] Protein [Mass/Vol] 7.1 g/dL 6.3 - 8.2 g/dL [place] Sodium [Moles/Vol] 140 mmol/L 135 - 145 mmol/L [place] Urea nitrogen [Mass/Vol] 20 mg/dL 7 - 20 mg/d L [place] Hemoglobin A1Con 01-20-2020 HbA1c (Bld) [Mass fraction] 7.6 % High 4.0-5.7 [facility] Comment on above: Result Comment: --Hg bA1C levels may not be accurate in patients who have renal disease, received recent blood transfusions, are anemic, or who have dyshemoglobinemia. Performed By: #### L IPD2, HEMDF, CMP3, HA1C2, TSH5 #### [facility] [address] [place] [address] HbA1c (Bld) [Mass fraction] 171 mg/dL Normal [facility] Comment on above: Performed By: #### L IPD2, HEMDF, CMP3, HA1C2, TSH5 #### [facility] [address] [place] [address] eAG 171 mg/dL [place] HbA1c (Bld) [Mass fraction] 7.6 % High 4 - 5.7 % [place] Comment on above: --HgbA1C levels may not be accurate in patients who have renal disease, received recent blood transfusions, are anemic, or who have dyshemoglobinemia. Interpretation and review of laboratory results Abnormal [place] Test Performed by [facility], [address] , [place], [place] [address] [place] Hemogram w/ Autodiffon 01-19 Abs Baso Cnt 0.1 10*3/uL Normal 0.0-0.2 [facility] Comment on above: Performed By: #### L IPD2, HEMDF, CMP3, HA1C2, TSH5 #### [facility] [address] [place] [address] Abs Neutrophile Cnt 5.1 10*3/uL Normal 1.8-7.0 [facility] Comment on above: Performed By: #### L IPD2, HEMDF, CMP3, HA1C2, TSH5 #### [facility] [address] [place] [address] Basophils/100 WBC (Bld) 1.2 % Normal 0.0-2.0 [facility] Comment on above: Performed By: #### L IPD2, HEMDF, CMP3, HA1C2, TSH5 #### [facility] [address] [place] [address] Eosinophils (Bld) [#/Vol] 0.3 10*3/uL Normal 0.0-0.5 [facility] Comment on above: Performed By: #### L IPD2, HEMDF, CMP3, HA1C2, TSH5 #### [facility] [address] [place] [address] Eosinophils/100 WBC (Bld) 3.7 % Normal 1.0-6.0 [facility] Comment on above: Performed By: #### L IPD2, HEMDF, CMP3, HA1C2, TSH5 #### [facility] [address] [place] [address] Erythrocyte distribution width (RBC) [Ratio] 12.9 % Normal 11.5-14.5 [facility] Comment on above: Performed By: #### L IPD2, HEMDF, CMP3, HA1C2, TSH5 #### [facility] [address] [place] [address] Granulocytes/100 WBC (Bld) 54.5 % Normal 40.0-80.0 [facility] Comment on above: Performed By: #### L IPD2, HEMDF, CMP3, HA1C2, TSH5 #### [facility] [address] [place] [address] Hematocrit (Bld) [Volume fraction] 42.9 % Normal 35.0-47.0 [facility] Comment on above: Performed By: #### L IPD2, HEMDF, CMP3, HA1C2, TSH5 #### [facility] [address] [place] [address] Hemoglobin (Bld) [Mass/Vol] 14.6 g/dL Normal 11.7-16.0 [facility] Comment on above: Performed By: #### L IPD2, HEMDF, CMP3, HA1C2, TSH5 #### [facility] [address] [place] [address] Lymphocytes (Bld) [#/Vol] 3.2 10*3/uL Normal 1.0-4.3 [facility] Comment on above: Performed By: #### L IPD2, HEMDF, CMP3, HA1C2, TSH5 #### [facility] [address] [place] [address] Lymphocytes/100 WBC (Bld) 33.8 % Normal 20.0-40.0 [facility] Comment on above: Performed By: #### L IPD2, HEMDF, CMP3, HA1C2, TSH5 #### [facility] [address] [place] [address] MCH (RBC) [Entitic mass] 31.9 pg Normal 26.0-34.0 [facility] Comment on above: Performed By: #### L IPD2, HEMDF, CMP3, HA1C2, TSH5 #### [facility] [address] [place] [address] MCHC (RBC) [Mass/Vol] 34.2 % Normal 32.0-36.0 [facility] Comment on above: Performed By: #### L IPD2, HEMDF, CMP3, HA1C2, TSH5 #### [facility] [address] [place] [address] MCV (RBC) [Entitic vol] 93.3 fL Normal 79.0-98.0 [facility] Comment on above: Performed By: #### L IPD2, HEMDF, CMP3, HA1C2, TSH5 #### [facility] [address] [place] [address] Monocytes (Bld) [#/Vol] 0.6 10*3/uL Normal 0.0-0.8 [facility] Comment on above: Performed By: #### L IPD2, HEMDF, CMP3, HA1C2, TSH5 #### [facility] [address] [place] [address] Monocytes/100 WBC (Bld) 6.8 % Normal 2.0-10.0 [facility] Comment on above: Performed By: #### L IPD2, HEMDF, CMP3, HA1C2, TSH5 #### [facility] [address] [place] [address] Platelet mean volume (Bld) [Entitic vol] 7.7 fL Normal 7.4-10.4 [facility] Comment on above: Performed By: #### L IPD2, HEMDF, CMP3, HA1C2, TSH5 #### [facility] [address] [place] [address] Platelets (Bld) [#/Vol] 318 10*3/uL Normal 140-440 [facility] Comment on above: Performed By: #### L IPD2, HEMDF, CMP3, HA1C2, TSH5 #### [facility] [address] [place] [address] RBC (Bld) [#/Vol] 4.59 10*6/uL Normal 3.80-5.20 [facility] Comment on above: Performed By: #### L IPD2, HEMDF, CMP3, HA1C2, TSH5 #### [facility] [address] [place] [address] WBC (Bld) [#/Vol] 9.4 10*3/uL Normal 3.6-10.7 [facility] Comment on above: Performed By: #### L IPD2, HEMDF, CMP3, HA1C2, TSH5 #### [facility] [address] [place] [address] Lipid Panelon 01-20-2020 Cholesterol in HDL [Mass/Vol] 47 mg/dL Normal 40-60 [facility] Comment on above: Performed By: #### B GLU #### [facility] [address] [place] [address] Cholesterol.total/Choles terol in HDL [Mass ratio] 5 Normal [facility] Comment on above: Result Comment: Ref Range: < 3 Low Risk for CHD 3-6 Mod Risk for CHD > 6 High Risk for CHD Performed By: #### B GLU #### [facility] [address] [place] [address] Protein [Mass/Vol] 156 mg/dL Abnormal <100 [facility] Comment on above: Performed By: #### B GLU #### [facility] [address] [place] [address] Triglyceride [Mass/Vol] 195 mg/dL Abnormal <150 [facility] Comment on above: Performed By: #### B GLU #### [facility] [address] [place] [address] Cholesterol [Mass/Vol] 242 mg/dL Abnormal < [address] [facility] Comment on above: Performed By: #### B GLU #### [facility] [address] [place] [address] Cholesterol [Mass/Vol] 242 mg/dL Abnormal <200 [place] Cholesterol in HDL [Mass/Vol] 47 mg/dL 40 - 60 mg/dL [place] Cholesterol in LDL [Mass/Vol] 156 mg/dL Abnormal <100 [place] Cholesterol.total/Choles terol in HDL [Mass ratio] 5 {ratio} [place] Comment on above: Ref Range: < 3 Low Risk for CHD 3-6 Mod Risk for CHD > 6 High Risk for CHD Triglyceride [Mass/Vol] 195 mg/dL Abnormal <150 [place] Microalbumin / Creatinine Ur ine Ratioon 01-20-2020 Albumin/Creatinine DL <= 20 mg/L (24H U) [Mass ratio] 18.6 mg/L High 0 - 17 mg/L [place] Comment on above: Microalbumin concent rations <30 are considered normal, 30-300 are considered microalbuminuria (or risk of diabetic nephropathy), and >300 are considered clinical albuminuria (clinical nephropathy). Diabetes Care,27, Supplement 1, B02-98, 2003 Albumin/Creatinine DL <= 20 mg/L (U) [Ratio] 9.2 mg/g 0 - 29.9 mg/g [place] Creatinine (U) [Mass/Vol] 201.3 mg/dL No Range [facility] [place] Interpretation and review of laboratory results Abnormal [facility], [place] Test Performed by [facility], [address] , [address] Microalbumin/Creat Ratioon 0 01-20-2020 Microalb/Creat Ratio 9.2 mg/g Normal 0.0-29.9 [facility] Comment on above: Performed By: #### B GLU #### [facility] [address] [place] [address] Microalbumin, Ur 18.6 mg/L High 0.0-17.0 [facility] Comment on above: Result Comment: Micr oalbumin concentrations <30 are considered normal, 30-300 are considered microalbuminuria (or risk of diabetic nephropathy), and >300 are considered clinical albuminuria (clinical nephropathy). Diabetes Care,27, Supplement 1, V76-20, 2003 Performed By: #### B GLU #### [facility] [address] [place] [address] Creatinine, Ur Random 201.3 mg/dL Normal No Range [facility] Comment on above: Performed By: #### B GLU #### [facility] [address] [place] [address] Otheron 01-20-2020 Interpretation and review of laboratory results Abnormal [facility] [place] Test Performed by [facility], [address] , [address] TSH without Reflexon 020 TSH Qn 1.553 u[IU]/mL 0.465 - 4.68 u[IU]/mL [place] Test Performed by [facility], [address] Thyroid Stim. Hormoneon 01-10 Thyroid Stim. Hormone 1.553 u[IU]/mL Normal 0.465-4.68 0 [facility] Comment on above: Performed By: #### B GLU #### [facility] [address] [place] [address] CT Cervical Spine WO Contras ton 06-05-2019 Patient Name: RAUDEL AHUMADA ---CT--- Exam Date/Time 06/05/2019 20:16:[address] Spine Cervical w/o Contrast Ordering Physician MD ANGEL BETSY Accession Number [id number] CPT4 Codes 65061 () Reason For Exam neck pain Report [...] I Transcribed Date and Time: 06/05/2019 8:22 [facility] Incoming Radiology Results From [facility] - 06/05/2019 8:22 PM EDT Patient Name: RAUDEL AHUMADA ---CT--- Exam Date/Time 06/05/2019 20:16:[address] Spine Cervical w/o Contrast Ordering Physician MD ANGEL BETSY Accession Number [id number] CPT4 Codes 34503 () Reason For Exam neck pain Report [...] I Transcribed Date and Time: 06/05/2019 8:22 [facility], [place] CT Head WO Contraston 2018 Patient Name: RAUDEL AHUMADA ---CT--- Exam Date/Time 06/05/2019 20:16:[address] Head or Brain w/o Contrast Ordering Physician MD ANGEL BETSY Accession Number [id number] CPT4 Codes 34495 () Reason For Exam fall, hematoma to [...] Date and Time: 06/05/2019 8:16 [facility] [place] [facility] Results From [facility] - 06/05/2019 8:16 PM EDT Patient Name: RAUDEL AHUMADA ---CT--- Exam Date/Time 06/05/2019 20:16:[address] Head or Brain w/o Contrast Ordering Physician MD ANGEL BETSY Accession Number [id number] CPT4 Codes 43799 () Reason For Exam fall, hematoma to [...] I Transcribed Date and Time: 06/05/2019 8:16 [facility] V[facility] Sign[facility] Date Time Vital Sign Value Performing Clinician Obdulia barnes 05-06-2020 10:36-0400 BP Diastolic 81 mm[Hg] Johnny Stone [facility] [place] 05-06-2020 10:36-0400 BP Systolic 172 mm[Hg] Johnny Stone [facility] , [place] 05-06-2020 10:33-0400 Body Temperature 97.2 [degF] Johnny Stone [facility], [place] 05-06-2020 10:31-0400 BMI (Body Mass Index) 45.71 kg/m2 Johnny Michaud [facility], [place] 05-06-2020 10:31-0400 Body weight 113.4 kg Johnny Stone [place], [place] 05-06-2020 10:31-0400 Pulse (Heart Rate) 65 /min Johnny Stone [place], [place] 05-06-2020 10:31-0400 Pulse Oximetry 93 % Johnny Stone [place] 05-06-2020 10:31-0400 Respiratory Rate 18 /min Johnny Stone [place], [place] 06-05-2019 20:55-0400 BP Diastolic 59 mm[Hg] [place], [place] 06-05-2019 20:55-0400 BP Systolic 146 mm[Hg] [place] 06-05-2019 20:55-0400 Pulse (Heart Rate) 62 /min [place], [place] 06-05-2019 20:55-0400 Pulse Oximetry 96 % [place] 06-05-2019 20:55-0400 Respiratory Rate 16 /min [place] 06-05-2019 19:47-0400 BMI (Body Mass Index) 45.73 kg/m2 [place] 06-05-2019 19:47-0400 Body Temperature 98.6 [degF] [place] 06-05-2019 19:47-0400 Body weight 113.4 kg [place] 06-05-2019 19:47-0400 Height 157.5 cm [place] Encounters Encounter Date Encounter Type Care Provider Facility Start: 06-02-2025 ambulatory Adelfo HERNANDEZ Facil ity:[facility] Start: 05-19-2025 ambulatory Adelfo HERNANDEZ Facil ity:[facility] Start: 05-05-2025 ambulatory Adelfo HERNANDEZ Facil ity:[facility] Start: 03-15-2025 ambulatory Adelfo HERNANDEZ Facil ity:[facility] Start: 01-11-2025 End: 01-11-2025 ambulatory Adelfo HERNANDEZ [facility] Work Phone: Start: 01-11-2025 End: 01-11-2025 Departed Referred Adelfo Dhaliwal [facility] [address] Start: 01-11-2025 End: 01-11-2025 ambulatory Adelfo HERNANDEZ Facility:[facility] Start: 12-23-2024 End: 12-23-2024 [facility] Start: 07-13-2024 End: 07-13-2024 ambulatory Adelfo HERNANDEZ Facility:[facility] Start: 11-11-2023 End: 11-11-2023 ambulatory [facility] Work Phone: Start: 11-11-2023 End: 11-11-2023 Departed Referred [facility] [place] [facility] [address] Start: 11-03-2023 Registered Referred [facility] [place] [facility] [address] Start: 10-21-2023 End: 10-21-2023 ambulatory [facility] Work Phone: Start: 10-21-2023 End: 10-21-2023 Departed Referred [facility] [place] [facility] [address] Start: 07-15-2023 Registered Referred [facility] [place] [facility] [address] Start: 07-12-2023 End: 07-12-2023 ambulatory [facility] Work Phone: Start: 07-12-2023 End: 07-12-2023 Departed Referred [facility] [place] [facility] [address] Start: 06-10-2023 End: 06-10-2023 ambulatory [facility] Work Phone: Start: 06-10-2023 End: 06-10-2023 Departed Referred [facility] [place] [facility] [address] Start: 02-25-2023 End: 02-26-2023 ambulatory PATRICIA VIPIN [facility] Start: 02-25-2023 End: 02-25-2023 Office outpatient new 30 minutes Patricia Harris MD Work Phone: [facility] Comment on above: Lumbar pain (Primary Dx); Lumbar radiculitis; DDD (degenerative disc disease), lumbar Start: 02-25-2023 End: 02-25-2023 Subsequent hospital visit by physician Patricia Harris MD Work Phone: [facility] Comment on above: Lumbar pain Start: 02-14-2023 End: 02-14-2023 ambulatory [facility] Work Phone: Start: 02-14-2023 End: 02-14-2023 Departed Referred [facility] [address] Start: 01-16-2023 End: 01-16-2023 Departed Referred [facility] [address] Start: 01-09-2023 End: 01-09-2023 ambulatory [facility] Work Phone: Start: 01-09-2023 End: 01-09-2023 Departed Referred [facility] [address] Start: 12-10-2022 Telephone encounter López marcos DDS [facility] Start: 10-30-2022 End: 10-30-2022 ambulatory [facility] Work Phone: Start: 10-30-2022 End: 10-30-2022 Departed Referred [facility] [address] Start: 10-01-2022 End: 10-01-2022 ambulatory [facility] Work Phone: Start: 10-01-2022 End: 10-01-2022 Departed Referred [facility] - [address] Start: 06-19-2022 ambulatory LÓPEZ AYALA Facili ty:[facility] Start: 06-19-2022 End: 06-19-2022 Patient encounter procedure López Ayala DDS Work Phone: [facility] Oral Surgery Comment on above: 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); Retained tooth root; Chronic periodontitis Start: 04-17-2022 End: 04-24-2022 ambulatory SELF PATIENT Facility:[facility] Start: 12-21-2021 End: 12-21-2021 Departed Referred [facility] [address] Start: 06-15-2020 End: 06-15-2020 Subsequent hospital visit by physician Maida Doshi Work Phone: [facility] Radiology Start: 05-12-2020 End: 05-12-2020 Subsequent hospital visit by physician Maida Doshi Work Phone: [facility] Laboratory Comment on above: Abnormal finding of blood chemistry, unspecified ; Other hyperlipidemia; HTN (hypertension), benign; Thyroid nodule Start: 05-06-2020 End: 05-06-2020 Emergency department patient visit Johnny Stone Work Phone: [facility] ED Comment on above: Encounter for staple removal (Primary Dx) Start: 01-20-2020 End: 01-20-2020 Subsequent hospital visit by physician Maida Doshi Work Phone: [facility] Laboratory Comment on above: HTN (hypertension), benign; Diabetes mellitus without complication (HCC) Start: 06-05-2019 End: 06-05-2019 Emergency department patient visit Carla Angel Work Phone: [facility] ED Comment on above: Scalp hematoma, init [...] exposed root (elevation and/or forceps removal) Jules Teresa MARINA Work Phone: Start: 10-28-2020 Thyrotropin [Units/v olume] in Serum or Plasma Patricia Harris MD Work Phone: Start: 06-15-2020 Radex spine lumbosac ral minimum 4 views Maida Cai Work Phone: Start: 05-12-2020 Assay of thyroid stimulating hormone tsh Maidaritesh Starkeyski Work Phone: Start: 05-12-2020 Blood count complete auto&auto difrntl wbc Maida Starkeyski Work Phone: Start: 05-12-2020 Comprehensive metabo lic panel Maida Starkeyski Work Phone: Start: 05-12-2020 Hemoglobin glycosylated a1c Maida Starkeyski Work Phone: Start: 05-12-2020 Lipid panel Maida Gianna nevski Work Phone: Start: 01-20-2020 Urine albumin quantitative Maida Starkeyski Work Phone: Start: 01-20-2020 Assay of thyroid stimulating hormone tsh Madia Starkeyski Work Phone: Start: 01-20-2020 Blood count complete auto&auto difrntl wbc Maida Starkeyski Work Phone: Start: 01-20-2020 Comprehensive metabo lic panel Maida Lalitoski Work Phone: Start: 01-20-2020 Hemoglobin glycosylated a1c Maida Lalitoski Work Phone: Start: 01-20-2020 Lipid panel Maida Gianna nevski Work Phone: Start: 06-05-2019 Ct cervical spine w/ o contrast material Carla Angel Work Phone: Start: 06-05-2019 Ct head/brain w/o co ntrast material Carla Angel Work Phone: Plan of Treatment Date Care Activity Detail Author Start: 04-12-2023 Influenza vaccination Influenza Vaccine (#1) [facility] Start: 12-21-2022 Lipid panel Lipid Profile [facility] Start: 06-23-2022 Hemoglobin A1c measurement Hemoglobin A1C [facility] [place] [facility] Start: 05-12-2022 Influenza vaccination Influenza Vaccine (#1) [facility] Start: 01-10-2022 Welcome to Medicare Visit (G0402) Welcome to Medicare Visit (G0402) [facility] [place] [facility] Start: 10-28-2021 Thyroid stimulating hormone measurement TSH Level [facility] Start: 05-12-2021 Creatinine measurement Creatinine monitoring [facility] [place] Start: 05-12-2021 Potassium monitoring Potassium monitoring [facility] Start: 05-12-2021 TSH Qn TSH testing [facility] [place], [place] Start: 04-29-2021 Creatinine measurement Creatinine monitoring [facility] Start: 04-29-2021 Potassium monitoring Potassium monitoring [facility] Start: 01-19-2021 TSH Qn TSH testing [facility] [place], [place] Start: 11-02-2020 COVID-19 Vaccine (3 - Booster for Pfizer series) COVID-19 Vaccine (3 - Booster for Pfizer series) [facility] [place] [facility] Start: 09-28-2020 COVID-19 Vaccine (2 - Pfizer series) COVID-19 Vaccine (2 - Pfizer series) [facility] Start: 05-12-2020 End: 05-12-2020 Office Visit 05/12/2020 Office Visit Family Medicine Maida Doshi MD [address] [place] [id number] [facility] Start: 04-12-2020 Influenza vaccination [facility] Start: 01-01-2020 Creatinine measurement Creatinine monitoring [facility] [place] Start: 01-01-2020 Creatinine monitoring Creatinine monitoring [facility] Start: 01-01-2020 Potassium monitoring Potassium monitoring [facility] Start: 01-01-2020 TSH Qn TSH testing [facility] Start: 01-01-2020 TSH testing TSH testing [place] Start: 04-12-2019 Influenza vaccination Flu vaccine (#1) [place] Start: 01-28-2019 Annual Wellness Visit (AWV) Annual Wellness Visit (AWV) [place] Start: 08-29-2018 Pneumococcal 65+ years Vaccine (2 of 2 - PPSV23) Pneumococcal 65+ years Vaccine (2 of 2 - PPSV23) [place] Start: 08-29-2018 Pneumococcal vaccination Pneumococcal Vaccine(s) (65+ yrs) (2 - PPSV23 if available, else PCV20) [facility] [place] [facility] Start: 10-24-2017 Pneumococcal vaccination Pneumococcal Vaccine(s) (65+ yrs) (2 - PPSV23 if available, else PCV20) [facility] Start: 10-24-2017 Pneumococcal Vaccine: 65+ Years (2 - PPSV23 if available, else PCV20) Pneumococcal Vaccine: 65+ Years (2 - PPSV23 if available, else PCV20) [facility] Start: 10-31-2000 Screening for osteoporosis Bone Densitometry [facility] Start: 10-31-1985 Shingles (RZV) Vaccine (1 of 2) Shingles (RZV) Vaccine (1 of 2) [facility] [place] [facility] Start: 10-31-1985 Shingles Vaccine (1 of 2) Shingles Vaccine (1 of 2) [place] Start: 10-31-1985 Zoster Vaccines (1 of 2) Zoster Vaccines (1 of 2) [facility] Start: 10-31-1954 DTaP/Tdap/Td vaccine (1 - Tdap) DTaP/Tdap/Td vaccine (1 - Tdap) [place] Start: 10-31-1954 DTaP/Tdap/Td Vaccines (1 - Tdap) DTaP/Tdap/Td Vaccines (1 - Tdap) [facility] Start: 10-31-1953 Tetanus + diphtheria + acellular pertussis vaccine (product) [facility] Start: 1947 Depresssion Monitoring Depresssion Monitoring [facility] Start: 1935 Diabetic retinal eye exam Eye Exam [facility] [place] [facility] Start: 1935 Lipid panel Lipid Profile [facility] [place] [facility] Start: 1935 Urine screening for protein Microalbumin [facility] [place] [facility] Start: 1935 Basic metabolic 2000 panel - Serum or Plasma Basic Metabolic Panel [facility] Start: 1935 Diabetic foot examination Foot Exam [facility] [place] [facility] Start: 1935 Screening for osteoporosis Bone Density Scan [facility] Start: 1935 Thyroid stimulating hormone measurement TSH [facility] Immunizations Immunization Date Immunization Notes Care Provider Fa cility 12-21-2021 Hemoglobin A1C López Ayala DDS Work Phone: [facility] 09-07-2020 Pfizer Monovalent (1 2+ yrs) SARS-COV-2 (COVID-19) vaccine, mRNA, spike protein, LNP, pres. free, 30 mcg/0.3mL dose (KWW=617) López Ayala DDS Work Phone: [facility] 08-17-2020 Pfizer Monovalent (1 2+ yrs) SARS-COV-2 (COVID-19) vaccine, mRNA, spike protein, LNP, pres. free, 30 mcg/0.3mL dose (RON=200) López Ayala DDS Work Phone: [facility] 08-29-2017 influenza, high dose seasonal, preservative-free [facility] [place] 08-29-2017 pneumococcal conjuga te vaccine, 13 valent [facility] [place] 08-29-2017 influenza virus vaccine, unspecified formulation López Ayala DDS Work Phone: [facility] 09-19-2016 influenza, injectabl e, quadrivalent, contains preservative [facility] [place] 06-16-2015 influenza virus vaccine, unspecified formulation [facility] Work Phone: 06-16-2015 influenza virus vaccine, whole virus López Ayala DDS Work Phone: [facility] Payers Date Payer Category Payer Self-pay [id number] 2024 Unknown [id number] 2022 Unknown [employer] [id number] 2022-Present [phone] [address] [place] [address] Indemnity [id number] 2022 Medicare [id number] 2022 Unknown [id number] 2017 Private Health Insurance [employer] MEDICARE SUPP [id number] 2017-Present [phone] [address] [place] [address] [id number] 2015 Medicare xxxxxxxxxxx [id number] 2015 Medicare [id number] 1935 Unknown [id number] 1935 Unknown [id number] Unknown [id number] 462 Unknown [id number] 462 Unknown [id number] 462 Unknown [id number] 462 Unknown [id number] 462 Unknown [id number] 462 Social History Date Type Detail Facility Start: 06-05-2019 End: 04-17-2022 Tobacco smoking status MNIS [facility] Start: 06-05-2019 End: 07-31-2022 Alcohol intake Current non-drinker of alcohol (finding) [facility] [place] Start: 1935 [facility]igned [facility] [place] Exposure to SARS-CoV -2 (event) Unable to assess [facility] [place] Start: 05-06-2020 End: 05-12-2020 Tobacco smoking status NHIS [facility] [place] Start: 05-06-2020 End: 04-17-2022 Tobacco use and exposure Never used [facility] Start: 02-15-2023 End: 02-25-2023 Exposure to SARS-CoV-2 (event) Not sure [facility] Start: 06-05-2019 End: 07-31-2022 Alcohol intake No [facility] Start: 1935 Sex Assigned At Female [facility] History of tobacco use Current smoker [facility] Start: 07-31-2022 History of Social function [facility] Tobacco smoking stat [facility] Unknown if ever smoked [facility] Work Phone: Medical Equipment Procedure Code Equipment Code Equipment Origin al Text Equipment Identifier Dates Test daily fasti ng dx Dispense as covered by PT insurance [id number] Start: 01-14-2017 Dx E11.9 TEST ON CE DAILY PATIENT USES PRODIGY [id number] Start: 01-14-2017 Clinical Notes 06-19-2022 to 02-25-2023 Patricia Harris MD - 02/25/2023 9:45 AM EDTTelephone Encounter - Dial, Adilene - 12/10/2022 4:18 PM EDTTelephone Encounter - Dial, Adilene - 12/10/2022 4:18 PM Amanda Palmer - 06/19/2022 9:11 AM EST Note Date & Type Note Facility 02-25-2023 History of Presen t illness Narrative Images from the original note were not included. 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 No significant change in her back pain for 3 years. 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 We recommended continued maintenance of her strength level and continued formal physical therapy. We will go ahead and write an order for her to get formal physical therapy at [facility] care for her chronic weakness. Follow-up with neurology for any potential care for her left hemiparesis. Follow up if symptoms worsen or fail to improve, for call our office with any questions at [phone]. Patricia Harris MD 02/25/2023 10:03 AM Please note that portions of this note may have been completed with voice recognition software. Documentation reviewed prior to signing but minor errors in supervisor blasting may have occurred. documented in this encounter [facility] 12-10-2022 Telephone encounter Note Patient is calling to states she had dentures that Dr Ayala took to have them to realign. Patient states the bottom denture was never returned to her. Patient states the dentures were not made in the clinic. They were made outside of [facility]. When she seen Dr Ayala in June 2022 he performed another mold and she is waiting to pick them up. Pls call pt @ [phone] Thank you [facility] 12-10-2022 Miscellaneous Notes Patient is calling to states she had her dentures made in oral surgery and Dr Ayala took them to realign them and she has never had them returned. Pls call pt @ [phone] Thank you Spoke with patient regarding her dentures. Explained to her that Dr. Ayala does not make dentures. Provided the contact information for [facility] and explained that if these dentures have been made by a [facility] provider, this is the department that will have them, otherwise she will need to see an outside dentist to have dentures made. Patient understood. Titus Ramirez DMD Oral & Maxillofacial Surgery, PGY-3 Team Pager: [phone] The patient called in looking for her [...] about this and can be reached at [phone] Thank You! documented in this encounter [facility] 12-10-2022 Miscellaneous Notes Patient is calling to states she had dentures that Dr Ayala took to have them to realign. Patient states the bottom denture was never returned to her. Patient states the dentures were not made in the clinic. They were made outside of [facility]. When she seen Dr Ayala in June 2022 he performed another mold and she is waiting to pick them up. Pls call pt @ [phone] Thank you Spoke with patient regarding her dentures. Explained to her that Dr. Ayala does not make dentures. Provided the contact information for [facility] and explained that if these dentures have been made by a [facility] provider, this is the department that will have them, otherwise she will need to see an outside dentist to have dentures made. Patient understood. Titus Ramirez DMD Oral & Maxillofacial Surgery, PGY-3 Team Pager: [phone] The patient called in looking for her [...] about this and can be reached at [phone] Thank You! documented in this encounter [facility] 12-10-2022 Telephone encounter Note Spoke with patient regarding her dentures. Explained to her that Dr. Ayala does not make dentures. Provided the contact information for [facility] and explained that if these dentures have been made by a [facility] provider, this is the department that will have them, otherwise she will need to see an outside dentist to have dentures made. Patient understood. Titus Ramirez DMD Oral & Maxillofacial Surgery, PGY-3 Team Pager: [phone] [facility] Work Phone: 12-10-2022 Telephone encounter Note The [...] about this and can be reached at [phone] Thank You! [facility] 06-26-2022 Note I was personally pre sent for the otero portions of the procedure. López Ayala DDS [facility] 06-26-2022 History of Presen t illness Narrative I was personally present for the otero portions of the procedure. López Ayala DDS ORAL SURGERY PROCEDURE ROOM NOTE [facility] Surgical Product(s): Routine extraction teeth 2, 4, 5, 8, 9, 10, 11, 12, 14 under local anesthetic. PMH: Reviewed, no change. Antibiotic prophylaxis indicated/taken: not applicable Discussed risks, benefits, and alternatives of treatment. 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 documented in this encounter [facility] 06-19-2022 Note ORAL SURGERY PROCEDU RE ROOM NOTE [facility] Surgical Product(s): Routine extraction teeth 2, 4, 5, 8, 9, 10, 11, 12, 14 under local anesthetic. PMH: Reviewed, no change. Antibiotic prophylaxis indicated/taken: not applicable Discussed risks, benefits, and alternatives of treatment. 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 [facility] [phone]. HELPING THE HEALING PROCESS AND STOPPING THE [...] any questions or concerns please contact us: [facility] . Ask for the behavioral health case manager professional employer consultant (after hours). 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- Primary Dental caries extending into pulp Retained tooth root Retained dental root Chronic periodontitis Chronic periodontitis, unspecified [facility] Lumbar pain- Primary Lumbago Lumbar radiculitis DDD (degenerative disc disease), lumbar Degeneration of lumbar or lumbosacral intervertebral disc [facility] Lumbar pain Lumbago [facility] Consultation (Routine) - Pending Review Specialty Diagnoses / Procedures Referred By Tish thibodeaux Referred To Contact Physical Therapy Diagnoses Lumbar pain Lumbar radiculitis DDD (degenerative disc disease), lumbar Procedures [place] [facility] 60-74 MINUTES Patricia Harris MD [address] [place] [address] Referral ID Status Reason Start Date Expiration Date Visits Requested Visits Authorized [id number] Pending Review Specialty Services Required 02/25/2023 02/25/2024 99 99 [facility] for referral (narrative)No [facility] for [facility] Work Phone: Assessments Diagnosis HTN (hypertension), [...] FoundDocuments on File Type Date Recorded 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 * Stitches and [place] Removal: General Info ([place]se) documented in this encounter* Attachments The following attachments cannot be sent through Care Everywhere. * Head Injury: Closed: General Info ([place]se) documented in this encounter Summary Purpose Family [...] Visit Chief Complaint LABWORK Chief Complaint LABWORK [facility] LABWORK Chief Complaint LABWORK [facility] LABWORK LABWORK Chief Complaint LABWORK LABWORK [facility] LAB WORK Chief Complaint [facility] LAB WOR K LABWORK Chief Complaint LABWORK [...] section and content) DATE CREATED AUTHOR [facility] DATE CREATED AUTHOR AUTHOR'S ORGANIZ ATION 12/11/2022 [facility] DATE CREATED AUTHOR AUTHOR'S ORGANIZ ATION 02/26/2023 [facility] DATE CREATED AUTHOR AUTHOR'S ORGANIZ ATION 12/24/2024 [place] [facility] DATE CREATED AUTHOR AUTHOR'S ORGANIZ ATION 06/09/2025 [facility] Goals (unrecognized section and content) Goals [...] HERNANDEZ Attending Provider, Referring Provid er Active Vat House Supervisor Relationship Specialty Start Date End Date Maida Doshi MD [address] [place] [address] PCP - General Family Medicine 02/25/23 Vat House Supervisor Relationship Specialty Start Date End Date Maida Doshi MD [address] [place] [id number] PCP - General Family Medicine 02/25/23 Team [...] BE BASED ON THE PRIMARY CLINICAL RECORDS. [employer] provides no warranty or guarantee of the accuracy or completeness of information in this document.
[2025-06-24 09:21] LABS: CRP 5.11 mg/L (0.0-3.0)
[2025-06-24 09:23] LABS: AST(SGOT) 19 U/L (<=31); Alanine Aminotransfer ALT/SGPT 14 U/L (<=34); Albumin, Serum 3.4 g/dL (3.4-4.8); Alkaline Phosphatase 69 U/L (35-104); Anion Gap 7 (5-15); BUN 13 mg/dL (4-19); BUN/Creat Ratio 33.2 RATIO (10-20); Calcium,Total 9.7 mg/dL (7.6-11.0); Carbon Dioxide 27.5 mmol/L (21.0-32.0); Chloride 106 mmol/L (98-108); Globulin 2.7 g/dL (2.2-4.2); Glucose 83 mg/dL (70-99); Potassium 4.4 mmol/L (3.3-5.1)
[2025-06-24 09:41] LABS: Hematocrit 46.1 % (37-47); Hemoglobin 15.1 g/dL (12.0-15.0); Mean Corp Hgb Conc 32.8 g/dL (32-36); Mean Corpuscular Volume 96.8 fL (81-99); Mean Platelet Vol. 10.2 fl (6.2-12.0); Platelet Count 244 K/mm3 (150-450); RBC Distribution Width CV 12.7 % (11.6-14.6); RBC Distribution Width SD 45.5 fl (35.1-43.9); Red Blood Count 4.76 M/mm3 (4.2-5.4); White Blood Count 8.8 K/mm3 (4.4-11.0)
== END | disposition home or self-care (01) ==
LOC: OLS.ACW100 05:00
PROVIDERS: Visit Provider Family Medicine
DX: M62.82 Rhabdomyolysis (principal); R55 Syncope and collapse; M62.81 Muscle weakness (generalized); R27.9 Unspecified lack of coordination; E11.9 Type 2 diabetes mellitus without complications
CPT/HCPCS: 36415; 80053; 85027; 85652; 86140

== ENCOUNTER → 2025-07-12 04:00 | Outpatient (REF) | payer MEDICAID, SELFPAY ==
--- OUTSIDE RECORDS SUMMARY | 2025-07-12 03:37 | XMS RPT_ITS | CCD ---
Author Organization [facility] Care Team Providers Care Cna Per Diem Name Role Phone Maida Doshi Primary Care Provider [phone] Unavailable Primary Care Provider Unavailabl e Unavailable Primary Care Provider Unavailamna e LÓPEZ AYALA Referring Unavailable PROVIDER, UNKNOWN Attending Unavailable PROVIDER, UNKNOWN Admitting Unavailable PATIENT, SELF Referring Unavailable PROVIDER, UNKNOWN Attending Unavailable PROVIDER, UNKNOWN Admitting Unavailable Maida Doshi MD Primary Care Provider [phone] PATRICIA HARRIS Attending Unavailable PATRICIA HARRIS Referring [...] Propensity to adverse reactions to drug 5 [place] (5 sources) Penicillins Propensity to adverse reactions to drug 5 [place] (5 sources) Sulfonamides (Antibiotic) Propensity to adverse reactions to drug 5 [place] (1 source) ADHESIVE TAPE-SILICONES; Translations: [ADHESIVE TAPE-SILICONES] Propensity to adverse reactions to drug (disorder) 0 [facility] Other [facility] Medications Current Medications Medication Drug Class(es) [...] 03-27-2021 atorvastatin (LIPITOR) 40 mg tablet B Snpzxsq-Levfou-CL (VITAMIN B50 COMPLEX PO) (5 sources) B [...] 03-27-2021 vitamin D2 ergocalciferol (DRISDOL) 1.25 MG (06264 UT) capsule gabapentin 300 mg oral capsule [...] 01-11-2025 Anion gap [Moles/Vol] 10 mmol/L - [facility] BUN/creatinine ratioOrdered By: Adelfo Dhaliwal on 01-11-2025 Urea nitrogen/Creatinine [Mass ratio] 32.4 mg/mg High 10- [facility] CBC-Complete Blood Cnt No Di ffon 01-11-2025 Erythrocyte distribution width (RBC) [Ratio] 12.4 % Normal 11.6-14.6 [facility] Comment on above: Order Comment: 119-1 Performed By: #### L 100.0500 #### [facility] [address] [place], [address] Hematocrit (Bld) [Volume fraction] 42.8 % Normal 37-47 [facility] Comment on above: Order Comment: 119-1 Performed By: #### L 100.0500 #### [facility] [address] [place], [address] Hemoglobin (Bld) [Mass/Vol] 14.1 g/dL Normal 12.0-15.0 [facility] Comment on above: Order Comment: 119-1 Performed By: #### L 100.0500 #### [facility] [address] [place], [address] MCH (RBC) [Entitic mass] 31.6 pg Normal 27.0-32.0 [facility] Comment on above: Order Comment: 119-1 Performed By: #### L 100.0500 #### [facility] [address] [place], [address] MCHC (RBC) [Mass/Vol] 32.9 g/dL Normal 32-36 [facility] Comment on above: Order Comment: 119-1 Performed By: #### L 100.0500 #### [facility] [address] [place], [address] MCV (RBC) [Entitic vol] 96.0 fL Normal 81-99 [facility] Comment on above: Order Comment: 119-1 Performed By: #### L 100.0500 #### [facility] [address] [place], [address] Platelet mean volume (Bld) [Entitic vol] 9.6 fL Normal 6.2-12.0 [facility] Comment on above: Order Comment: 119-1 Performed By: #### L 100.0500 #### [facility] [address] [place], [address] Platelets (Bld) [#/Vol] 234 10*3/uL Normal 150-450 [facility] Comment on above: Order Comment: 119-1 Performed By: #### L 100.0500 #### [facility] [address] [place], [address] RBC (Bld) [#/Vol] 4.46 10*6/uL Normal 4.2-5.4 [facility] Comment on above: Order Comment: 119-1 Performed By: #### L 100.0500 #### [facility] [address] [place], [address] RDW SD 44.0 fl High 35.1-43.9 [facility] Comment on above: Order Comment: 119-1 Performed By: #### L 100.0500 #### [facility] [address] [place], [address] WBC (Bld) [#/Vol] 8.7 10*3/uL Normal 4.4-11.0 [facility] Comment on above: Order Comment: 119-1 Performed By: #### L 100.0500 #### [facility] [address] [place], [address] Calculated very low density lipoprotein (VLDL) cholesterol measurementOrdered By: Adelfo Dhaliwal on 01-11-2025 Calculated very low density lipoprotein (VLDL) cholesterol measurement 31 mg/dL 5-40 [facility] Carbon dioxide, total [Moles /volume] in Central venous bloodOrdered By: Adelfo Dhaliwal on 01-11-2025 CO2 [Moles/Vol] 26.7 mmol/L 21.0-32.0 [facility] Chloride assayOrdered By: Danielle Dhaliwal on 01-11-2025 Chloride [Moles/Vol] 103 mmol/L 98-108 [facility] Erythrocyte distribution wid th ratioOrdered By: Abelino Underwood on 01-11-2025 Erythrocyte distribution width (RBC) [Ratio] 12.4 % 11.6-14.6 [facility] Erythrocyte distribution wid th standard deviationOrdered By: Abelino Underwood on 01-11-2025 Erythrocyte distribution width (RBC) [Ratio] 44.0 fl High 35.1-43.9 [facility] Glomerular filtration rate ( GFR) estimation/1.73 sq m using serum, plasma, or whole bOrdered By: Adelfo Dhaliwal on 01-11-2025 GFR/1.73 sq M.predicted among non-blacks MDRD (S/P/Bld) [Vol rate/Area] 92 mL/min/{1.73_m2} >60 [facility] Comment on above: mL/min/1.73m2 CKD-EP I Creatinine Equation (2020) Hematocrit Auto (Bld) [Volum e fraction]Ordered By: Abelino Underwood on 01-11-2025 Hematocrit (Bld) [Volume fraction] 42.8 % 37-47 [facility] Hemoglobin A1c percentageOrd ered By: Adelfo Dhaliwal on 01-11-2025 HbA1c (Bld) [Mass fraction] 8.0 % High <5.7 [facility] Comment on above: Normal < 5.7 % Predi abetic 5.7 - 6.4 % Diabetic >or= 6.5 % Please note range changes. Hemoglobin measurementOrdere d By: Abelino Underwood on 01-11-2025 Hemoglobin (Bld) [Mass/Vol] 14.1 g/dL 12.0-15.0 [facility] LDL calc ser/plasOrdered By: Adelfo Dhaliwal on 01-11-2025 Cholesterol in LDL [Mass/Vol] 169 mg/dL [facility] Comment on above: Kmfgyfyuaw=853-209 m g/dL & Higher Irpg=950 mg/dL or greater MCV (mean corpuscular volume ) determinationOrdered By: Abelino Underwood on 01-11-2025 MCV (RBC) [Entitic vol] 96.0 fL 81-99 [facility] Magnesium measurement (mass/ volume)Ordered By: Adelfo Dhaliwal on 01-11-2025 Magnesium (Unsp spec) [Mass/Vol] 1.9 mg/dL 1.5-2.2 [facility] Mean corpuscular hemoglobin (MCH) determinationOrdered By: Abelino Underwood on 01-11-2025 MCH (RBC) [Entitic mass] 31.6 pg 27.0-32.0 [facility] Mean corpuscular hemoglobin concentration (MCHC) determinationOrdered By: Abelino Underwood on 01-11-2025 MCHC (RBC) [Mass/Vol] 32.9 g/dL 32-36 [facility] Mean platelet volume determi nationOrdered By: Abelino Underwood on 01-11-2025 Platelet mean volume (Bld) [Entitic vol] 9.6 fL 6.2-12.0 [facility] Platelet countOrdered By: Raphael Barnes on 01-11-2025 Platelets (Bld) [#/Vol] 234 10*3/uL 150-450 [facility] Potassium measurement (mass/ volume)Ordered By: Adelfo Dhaliwal on 01-11-2025 Potassium (Unsp spec) [Mass/Vol] 4.2 mmol/L 3.3-5.1 [facility] RBC Auto (Bld) [#/Vol]Ordere d By: Abelino Underwood on 01-11-2025 RBC (Bld) [#/Vol] 4.46 10*6/uL 4.2-5.4 [facility] Screening total cholesterol/ high density lipoprotein (HDL) cholesterol ratioOrdered By: Adelfo Dhaliwal on 01-11-2025 Cholesterol.total/Choles terol in HDL [Mass ratio] 5.68 {ratio} [facility] Serum creatinine measurement (mass/volume)Ordered By: Adelfo Dhaliwal on 01-11-2025 Creatinine [Mass/Vol] 0.45 mg/dL Low 0.70-1.20 [facility] Serum glucose measurement (m ass/volume)Ordered By: Adelfo Dhaliwal on 01-11-2025 Glucose [Mass/Vol] 143 mg/dL High 70-99 [facility] Serum or plasma calcium ivette urement (mass/volume)Ordered By: Adelfo Dhaliwal on 01-11-2025 Calcium [Mass/Vol] 9.7 mg/dL 7.6-11.0 [facility] Serum or plasma cholesterol in HDL measurement (mass/volume)Ordered By: Adelfo Dhaliwal on 01-11-2025 Cholesterol in HDL [Mass/Vol] 43 mg/dL >40 [facility] Comment on above: National Cholesterol Education Program (NCEP) guidelines:<40 mg/dL: Low HDL-cholesterol (major risk factor for CHD)>= 60 mg/dL: High HDL-cholesterol (negative risk factor for CHD)HDL-cholesterol is affected by a number of factors, e.g. smoking, exercise, hormones, sex and age. Serum or plasma cholesterol measurement (mass/volume)Ordered By: Adelfo Dhaliwal on 01-11-2025 Cholesterol [Mass/Vol] 243 mg/dL High <201 [facility] Comment on above: Cholesterol level, D esirable <200 mg/dLBorderline high cholesterol 200-239 mg/dLHigh cholesterol >=240 mg/dLRecommendations of the NCEP Adult Treatment Panel for the following risk-cutoff thresholds for the [place] population. Serum or plasma triiodothyro nine (T3) measurement (mass/volume)Ordered By: Adelfo Dhaliwal on 01-11-2025 T3 [Mass/Vol] 0.70 ng/mL Low 0.80-2.00 [facility] Serum or plasma urea nitroge n measurement (mass/volume)Ordered By: Adelfo Dhaliwal on 01-11-2025 Urea nitrogen [Mass/Vol] 15 mg/dL 4-19 [facility] Sodium levelOrdered By: Tahir Dhaliwal on 01-11-2025 Sodium [Moles/Vol] 139 mmol/L 133-145 [facility] TSH DL <= 0.005 mIU/L QnOrde red By: Adelfo Dhaliwal on 01-11-2025 TSH Qn 2.080 uIU/mL 0.300-4.200 [facility] ThyroxineOrdered By: Adelfo Dhaliwal on 01-11-2025 T4 [Mass/Vol] 6.7 ug/dL 4.8-13.9 [facility] Triglycerides measurementOrd ered By: Adelfo Dhaliwal on 01-11-2025 Triglyceride [Mass/Vol] 154 mg/dL <199 [facility] Comment on above: The drugs N-Acetylcy steine and Metamizole may falsely depress this assay. Normal range: <150 mg/dLBorderline High: 150-199 mg/dLHigh: 200-499 mg/dLVery High: >500 mg/dL White blood cell (WBC) count Ordered By: Abelino Underwood on 01-11-2025 WBC (Bld) [#/Vol] 8.7 10*3/uL 4.4-11.0 [facility] CBC W Auto Differential pane l (Bld)on 12-23-2024 Basophils (Bld) [#/Vol] 0.05 10*3/uL Normal <0.11 [facility] Comment on above: Order Comment: Speci men Type: BLOOD SPECIMEN Ordering Facility: [facility] Address: [address] [place] [address] Performed By: #### 5 7021-8 #### [facility] CLIA [id number] [address] [place] Basophils/100 WBC (Bld) 0.5 % Normal [facility] Comment on above: Order Comment: Speci men Type: BLOOD SPECIMEN Ordering Facility: [facility] Address: [address] [place] [address] Performed By: #### 5 7021-8 #### [facility] CLIA [id number] [address] Differential cell count method Nom (Bld) Auto Normal [facility] Comment on above: Order Comment: Speci men Type: BLOOD SPECIMEN Ordering Facility: [facility] Address: [address] [place] [address] Performed By: #### 5 7021-8 #### [facility] CLIA [id number] [address] [place] [address] [place] Eosinophils (Bld) [#/Vol] 0.27 10*3/uL Normal <0.46 [facility] Comment on above: Order Comment: Speci men Type: BLOOD SPECIMEN Ordering Facility: [facility] Address: [address] [place] [address] Performed By: #### 5 7021-8 #### [facility] CLIA [id number] [address] [place] [address] [place] Eosinophils/100 WBC (Bld) 2.9 % Normal [facility] Comment on above: Order Comment: Speci men Type: BLOOD SPECIMEN Ordering Facility: [facility] Address: [facility] [place] [address] Performed By: #### 5 7021-8 #### [facility] CLIA [id number] [address] [place] [address] [place] Erythrocyte distribution width (RBC) [Ratio] 12.9 % Normal 11.5-15.0 [facility] Comment on above: Order Comment: Speci men Type: BLOOD SPECIMEN Ordering Facility: [facility] Address: [address] [place] [address] Performed By: #### 5 7021-8 #### [facility] CLIA [id number] [address] [place] Hematocrit (Bld) [Volume fraction] 43.7 % Normal 36.0-46.0 [facility] Comment on above: Order Comment: Speci men Type: BLOOD SPECIMEN Ordering Facility: [facility] Address: [address] [place] [address] Performed By: #### 5 7021-8 #### [facility] CLIA [id number] [address] [place] [address] [place] Hemoglobin (Bld) [Mass/Vol] 14.3 g/dL Normal 11.5-15.5 [facility] Comment on above: Order Comment: Speci men Type: BLOOD SPECIMEN Ordering Facility: [facility] Address: [address] [place] [address] Performed By: #### 5 7021-8 #### [facility] CLIA [id number] [address] [place] Immature granulocytes (Bld) [#/Vol] 0.04 10*3/uL Normal <0.10 [facility] Comment on above: Order Comment: Speci men Type: BLOOD SPECIMEN Ordering Facility: [facility] Address: [address] [place] [address] Performed By: #### 5 7021-8 #### [facility] CLIA [id number] [address] [place] [address] [place] Immature granulocytes/100 WBC (Bld) 0.4 % Normal [facility] Comment on above: Order Comment: Speci men Type: BLOOD SPECIMEN Ordering Facility: [facility] Address: [address] [place] [address] Performed By: #### 5 7021-8 #### [facility] CLIA [id number] [address] [place] Lymphocytes (Bld) [#/Vol] 3.54 10*3/uL Normal 1.00-4.00 [facility] Comment on above: Order Comment: Speci men Type: BLOOD SPECIMEN Ordering Facility: [facility] Address: [address] [place] [address] Performed By: #### 5 7021-8 #### [facility] CLIA [id number] [address] Lymphocytes/100 WBC (Bld) 38.6 % Normal [facility] Comment on above: Order Comment: Speci men Type: BLOOD SPECIMEN Ordering Facility: [facility] Address: [address] [place] [address] Performed By: #### 5 7021-8 #### [facility] CLIA [id number] [address] MCH (RBC) [Entitic mass] 31.4 pg Normal 26.0-34.0 [facility] Comment on above: Order Comment: Speci men Type: BLOOD SPECIMEN Ordering Facility: [facility] Address: [address] [place] [address] Performed By: #### 5 7021-8 #### [facility] CLIA [id number] [address] STATES [facility] MCHC (RBC) [Mass/Vol] 32.7 g/dL Normal 30.5-36.0 [facility] Comment on above: Order Comment: Speci men Type: BLOOD SPECIMEN Ordering Facility: [facility] Address: [address] [place] [address] Performed By: #### 5 7021-8 #### [facility] CLIA [id number] [address] [place] [address] [place] MCV (RBC) [Entitic vol] 96.0 fL Normal 80.0-100.0 [facility] Comment on above: Order Comment: Speci men Type: BLOOD SPECIMEN Ordering Facility: [facility] Address: [facility] [place] [address] Performed By: #### 5 7021-8 #### [facility] CLIA [id number] [address] [place] [address] [place] Monocytes (Bld) [#/Vol] 0.59 10*3/uL Normal <0.87 [facility] Comment on above: Order Comment: Speci men Type: BLOOD SPECIMEN Ordering Facility: [facility] Address: [address] [place] [address] Performed By: #### 5 7021-8 #### [facility] CLIA [id number] [address] Monocytes/100 WBC (Bld) 6.4 % Normal [facility] Comment on above: Order Comment: Speci men Type: BLOOD SPECIMEN Ordering Facility: [facility] Address: [address] [place] [address] Performed By: #### 5 7021-8 #### [facility] CLIA [id number] [address] [place] [address] [place] Neutrophils (Bld) [#/Vol] 4.68 10*3/uL Normal 1.45-7.50 [facility] Comment on above: Order Comment: Speci men Type: BLOOD SPECIMEN Ordering Facility: [facility] Address: [address] [place] [address] Performed By: #### 5 7021-8 #### [facility] CLIA [id number] [address] [place] [address] [place] Neutrophils/100 WBC (Bld) 51.2 % Normal [facility] Comment on above: Order Comment: Speci men Type: BLOOD SPECIMEN Ordering Facility: [facility] Address: [address] [place] [address] Performed By: #### 5 7021-8 #### [facility] CLIA [id number] [address] [place] [address] [place] Nucleated RBC (Bld) [#/Vol] 10*3/uL Normal <0.01 [facility] Comment on above: Order Comment: Speci men Type: BLOOD SPECIMEN Ordering Facility: [facility] Address: [address] [place] [address] Performed By: #### 5 7021-8 #### [facility] CLIA [id number] [address] [place] [address] [place] Nucleated RBC/100 WBC (Bld) [Ratio] 0.0 /100 WBC Normal [facility] Comment on above: Order Comment: Speci men Type: BLOOD SPECIMEN Ordering Facility: [facility] Address: [address] [place] [address] Performed By: #### 5 7021-8 #### [facility] CLIA [id number] [address] [place] [address] [place] Platelet mean volume (Bld) [Entitic vol] 9.8 fL Normal 9.0-12.7 [facility] Comment on above: Order Comment: Speci men Type: BLOOD SPECIMEN Ordering Facility: [facility] Address: [address] [place] [address] Performed By: #### 5 7021-8 #### [facility] CLIA [id number] [address] [place] [address] [place] Platelets (Bld) [#/Vol] 255 10*3/uL Normal 150-400 [facility] Comment on above: Order Comment: Speci men Type: BLOOD SPECIMEN Ordering Facility: [facility] Address: [address] [place] [address] Performed By: #### 5 7021-8 #### [facility] CLIA [id number] [address] [place] [address] [place] RBC (Bld) [#/Vol] 4.55 10*6/uL Normal 3.90-5.20 [facility] Comment on above: Order Comment: Speci men Type: BLOOD SPECIMEN Ordering Facility: [facility] Address: [address] [place] [address] Performed By: #### 5 7021-8 #### [facility] CLIA [id number] [address] [place] [address] [place] [facility] [place] WBC (Bld) [#/Vol] 9.17 10*3/uL Normal 3.70-11.00 [facility] Comment on above: Order Comment: Speci men Type: BLOOD SPECIMEN Ordering Facility: [facility] Address: [address] [place] [address] Performed By: #### 5 7021-8 #### [facility] CLIA [id number] [address] [place] [address] [place] [facility] [place] Comprehensive metabolic 2000 panelon 12-23-2024 Albumin [Mass/Vol] 3.7 g/dL Low 3.9-4.9 [facility] Comment on above: Order Comment: Speci men Type: BLOOD SPECIMEN Ordering Facility: [facility] Address: [address] [place] [address] Performed By: #### 2 4323-8, 3040-3 #### [facility] CLIA [id number] [address] [place] ALP [Catalytic activity/Vol] 86 U/L Normal 34-123 [facility] Comment on above: Order Comment: Speci men Type: BLOOD SPECIMEN Ordering Facility: [facility] Address: [address] [place] [address] Performed By: #### 2 4323-8, 3040-3 #### [facility] CLIA [id number] [address] ALT [Catalytic activity/Vol] 9 U/L Normal 7-38 [facility] Comment on above: Order Comment: Speci men Type: BLOOD SPECIMEN Ordering Facility: [facility] Address: [address] [place] [address] Performed By: #### 2 4323-8, 3040-3 #### [facility] CLIA [id number] [address] Anion gap [Moles/Vol] 8 mmol/L Normal 8-15 [facility] Comment on above: Order Comment: Speci men Type: BLOOD SPECIMEN Ordering Facility: [facility] Address: [address] [place] [address] Performed By: #### 2 4323-8, 3040-3 #### [facility] CLIA [id number] [address] [place] [address] [place] AST [Catalytic activity/Vol] 12 U/L Low 13-35 [facility] Comment on above: Order Comment: Speci men Type: BLOOD SPECIMEN Ordering Facility: [facility] Address: [address] [place] [address] Performed By: #### 2 4323-8, 0-3 #### [facility] CLIA [id number] [address] [place] [address] [place] Bilirubin [Mass/Vol] 0.7 mg/dL Normal 0.2-1.3 [facility] Comment on above: Order Comment: Speci men Type: BLOOD SPECIMEN Ordering Facility: [facility] Address: [address] [place] [address] Performed By: #### 2 4323-8, 0-3 #### [facility] CLIA [id number] [address] [place] [address] [place] Calcium [Mass/Vol] 9.7 mg/dL Normal 8.5-10.2 [facility] Comment on above: Order Comment: Speci men Type: BLOOD SPECIMEN Ordering Facility: [facility] Address: [address] [place] [address] Performed By: #### 2 4323-8, 0-3 #### [facility] CLIA [id number] [address] [place] [address] [place] Chloride [Moles/Vol] 103 mmol/L Normal 98-107 [facility] Comment on above: Order Comment: Speci men Type: BLOOD SPECIMEN Ordering Facility: [facility] Address: [address] [place] [address] Performed By: #### 2 4323-8, 3040-3 #### [facility] CLIA [id number] [address] [place] [address] [place] CO2 [Moles/Vol] 30 mmol/L Normal 22-30 [facility] Comment on above: Order Comment: Speci men Type: BLOOD SPECIMEN Ordering Facility: [facility] Address: [address] [place] [address] Performed By: #### 2 4323-8, 3040-3 #### [facility] CLIA [id number] [address] [place] [address] [place] Creatinine [Mass/Vol] 0.47 mg/dL Low 0.58-0.96 [facility] Comment on above: Order Comment: Jose garcia Type: BLOOD SPECIMEN Ordering Facility: [facility] Address: [address] [place] [address] Performed By: #### 2 4323-8, 3040-3 #### [facility] CLIA [id number] [address] Creatinine and Glomerular filtration rate.predicted panel (S/P/Bld) 91 mL/min/1.73m??? Normal >=60 [facility] Comment on above: Order Comment: Jose garcia Type: BLOOD SPECIMEN Ordering Facility: [facility] Address: [address] [place] [address] Result Comment: Lisa mated Glomerular Filtration Rate [...] Performed By: #### 2 4323-8, 3040-3 #### [facility] CLIA [id number] [address] [place] Glucose [Mass/Vol] 161 mg/dL High 74-99 [facility] Comment on above: Order Comment: Jose garcia Type: BLOOD SPECIMEN Ordering Facility: [facility] Address: [address] [place] [address] Result Comment: The [place] [employer] (ADA) provides guidance for cutoff [...] Standards of Medical Care in Diabetes 2016, [place] [employer]. Diabetes Care. 2016.39(Suppl 1). Performed By: #### 2 4323-8, 3040-3 #### [facility] CLIA [id number] [address] [place] [address] [place] Potassium [Moles/Vol] 4.5 mmol/L Normal 3.7-5.1 [facility] Comment on above: Order Comment: Jose garcia Type: BLOOD SPECIMEN Ordering Facility: [facility] Address: [address] [place] [address] Performed By: #### 2 4323-8, 0-3 #### [facility] CLIA [id number] [address] [place] [address] [place] Protein [Mass/Vol] 6.5 g/dL Normal 6.3-8.0 [facility] Comment on above: Order Comment: Jose garcia Type: BLOOD SPECIMEN Ordering Facility: [facility] Address: [address] [place] [address] Performed By: #### 2 4323-8, 0-3 #### [facility] CLIA [id number] [address] [place] [address] [place] Sodium [Moles/Vol] 141 mmol/L Normal 136-144 [facility] Comment on above: Order Comment: Jose garcia Type: BLOOD SPECIMEN Ordering Facility: [facility] Address: [address] [place] [address] Performed By: #### 2 4323-8, 0-3 #### [facility] CLIA [id number] [address] [place] [address] [place] Urea nitrogen [Mass/Vol] 15 mg/dL Normal 7-21 [facility] Comment on above: Order Comment: Jose garcia Type: BLOOD SPECIMEN Ordering Facility: [facility] Address: [address] [place] [address] Performed By: #### 2 4323-8, 0-3 #### [facility] CLIA [id number] [address] [place] [address] [place] Albumin [Mass/Vol] 3.7 g/dL Low 3.9-4.9 [facility] Comment on above: Order Comment: Speci men Type: BLOOD SPECIMEN Ordering Facility: [facility] Address: [address] [place] [address] Performed By: #### 1 9123-9, 28137-4 #### [facility] CLIA [id number] [address] [place] [address] [place] ALP [Catalytic activity/Vol] Normal [facility] Comment on above: Order Comment: Speci men Type: BLOOD SPECIMEN Ordering Facility: [facility] Address: [address] [place] [address] Result Comment: Unab le to assay due to interference from hemolysis. Suggest reorder as clinically indicated. Performed By: #### 1 9123-9, 06791-7 #### [facility] CLIA [id number] [address] ALT [Catalytic activity/Vol] Normal [facility] Comment on above: Order Comment: Speci men Type: BLOOD SPECIMEN Ordering Facility: [facility] Address: [address] [place] [address] Result Comment: Unab le to assay due to interference from hemolysis. Suggest reorder as clinically indicated. Performed By: #### 1 9123-9, 57256-7 #### [facility] CLIA [id number] [address] STATES [facility] Anion gap [Moles/Vol] Normal [facility] Comment on above: Order Comment: Speci men Type: BLOOD SPECIMEN Ordering Facility: [facility] Address: [address] [place] [address] Result Comment: Unab le to calculate due to hemolysis. Performed By: #### 1 9123-9, 33063-4 #### [facility] CLIA [id number] [address] [place] AST [Catalytic activity/Vol] [facility] Comment on above: Order Comment: Speci men Type: BLOOD SPECIMEN Ordering Facility: [facility] Address: [address] [place] [address] Result Comment: Unab le to assay due to interference from hemolysis. Suggest reorder as clinically indicated. Performed By: #### 1 23-9, 88248-5 #### [facility] CLIA [id number] [address] [place] [address] [place] Bilirubin [Mass/Vol] 0.6 mg/dL Normal 0.2-1.3 [facility] Comment on above: Order Comment: Speci men Type: BLOOD SPECIMEN Ordering Facility: [facility] Address: [address] [place] [address] Performed By: #### 1 9, 95937-9 #### [facility] CLIA [id number] [address] [place] [address] [place] Calcium [Mass/Vol] 9.8 mg/dL Normal 8.5-10.2 [facility] Comment on above: Order Comment: Speci men Type: BLOOD SPECIMEN Ordering Facility: [facility] Address: [address] [place] [address] Performed By: #### 1 9, 21043-6 #### [facility] CLIA [id number] [address] [place] [address] [place] Chloride [Moles/Vol] 100 mmol/L Normal 98-107 [facility] Comment on above: Order Comment: Speci men Type: BLOOD SPECIMEN Ordering Facility: [facility] Address: [address] [place] [address] Performed By: #### 1 9, 81950-5 #### [facility] CLIA [id number] [address] [place] [address] [place] CO2 [Moles/Vol] Normal [facility] Comment on above: Order Comment: Speci men Type: BLOOD SPECIMEN Ordering Facility: [facility] Address: [address] [place] [address] Result Comment: Unab le to assay due to interference from hemolysis. Suggest reorder as clinically indicated. Performed By: #### 1 23-9, 34703-1 #### [facility] CLIA [id number] [address] [place] [address] [place] Creatinine [Mass/Vol] 0.35 mg/dL Low 0.58-0.96 [facility] Comment on above: Order Comment: Jose garcia Type: BLOOD SPECIMEN Ordering Facility: [facility] Address: [address] [place] [address] Performed By: #### 1 9123-9, 92004-8 #### [facility] CLIA [id number] [address] [place] [address] [place] Creatinine and Glomerular filtration rate.predicted panel (S/P/Bld) 98 mL/min/1.73m??? Normal >=60 [facility] Comment on above: Order Comment: Jose garcia Type: BLOOD SPECIMEN Ordering Facility: [facility] Address: [address] [place] [address] Result Comment: Lisa mated Glomerular Filtration Rate [...] actual GFR. Performed By: #### 1 9123-9, 00077-8 #### [facility] CLIA [id number] [address] [place] [address] [place] Glucose [Mass/Vol] 150 mg/dL High 74-99 [facility] Comment on above: Order Comment: Jose garcia Type: BLOOD SPECIMEN Ordering Facility: [facility] Address: [address] [place] [address] Result Comment: The [place] [employer] (ADA) provides guidance for cutoff [...] Standards of Medical Care in Diabetes 2016, [place] [employer]. Diabetes Care. 2016.39(Suppl 1). Performed By: #### 1 23-9, 95531-5 #### [facility] CLIA [id number] [address] [place] [address] [place] Potassium [Moles/Vol] Normal [facility] Comment on above: Order Comment: Speci men Type: BLOOD SPECIMEN Ordering Facility: [facility] Address: [address] [place] [address] Result Comment: Unab le to assay due to interference from hemolysis. Suggest reorder as clinically indicated. Performed By: #### 1 23-9, 51659-7 #### [facility] CLIA [id number] [address] [place] [address] [place] Protein [Mass/Vol] Normal [facility] Comment on above: Order Comment: Speci men Type: BLOOD SPECIMEN Ordering Facility: [facility] Address: [address] [place] [address] Result Comment: Unab le to assay due to interference from hemolysis. Suggest reorder as clinically indicated. Performed By: #### 1 23-9, 36037-3 #### [facility] CLIA [id number] [address] [place] [address] [place] Sodium [Moles/Vol] 135 mmol/L Low 136-144 [facility] Comment on above: Order Comment: Speci men Type: BLOOD SPECIMEN Ordering Facility: [facility] Address: [address] [place] [address] Performed By: #### 1 23-9, 62923-1 #### [facility] CLIA [id number] [address] [place] [address] [place] Urea nitrogen [Mass/Vol] 16 mg/dL Normal 7-21 [facility] Comment on above: Order Comment: Taii men Type: BLOOD SPECIMEN Ordering Facility: [facility] Address: [address] [place] [address] Performed By: #### 1 23-9, 05691-5 #### [facility] CLIA [id number] [address] [place] [address] [place] ED NOTEon 12-23-2024 ED NOTE HNO ID: [id number] Author: THERESE ZAVALA RN Service: Nursing Author Type: Registered Nurse Type: ED Notes Filed: 12/23/2024 12:59 Note Text: Report given to MMT transport at bedside. [facility] ED NOTE HNO ID: [id number] Author: THERESE ZAVALA RN Service: Nursing Author Type: Registered Nurse Type: ED Notes Filed: 12/23/2024 12:21 Note Text: Report called to nursing facility by this RN. [facility] ED NOTE HNO ID: [id number] Author: MILEY KABA, NNIFA Service: ? Author Type: Registered Nurse Type: ED Notes Filed: 12/23/2024 06:17 Note Text: Pt incontinent of large amount of urine. Pt cleaned up and external catheter placed. [facility] ED PROGRESS NOTE (PROVIDER)o n 12-23-2024 ED PROGRESS NOTE (PROVIDER) HNO ID: [id number] Author: THERESE DINERO DO Service: Emergency Medicine [...] 23, 2024 TIME: 8:37 AM PAGER/CONTACT #: [facility] ED PROV NOTEon 12-23-2024 ED PROV NOTE HNO ID: [id number] Author: CAMERON NEVAREZ DO Service: Emergency Medicine Author Type: Physician Type: ED Provider Notes Filed: 12/23/2024 06:17 Note Text: ED Provider Note Patient Name: Raudel Ahumada : 1935 SERVICE DATE: 12/23/24 History Patient presents with: Altered Level Of Consciousness: Pt BIB EMS from [facility]. Per EMS the half-way staff was unable to wake her this [...] changes in stool. History provided by: Patient tube room cashier used: No PAST MEDICAL HISTORY Diagnosis Date [...] Essential hypertension (more content not included)... Normal [facility] Lipase SerPl-cCncon 12-24-19 25 Lipase [Catalytic activity/Vol] 10 U/L Low 16-61 [facility] Comment on above: Order Comment: Speci men Type: BLOOD SPECIMENOrdering Facility: [facility] Address: [address] [place] [address] Performed By: #### 2 4323-8, 3040-3 ####[facility] [id number] [address] [place] Magnesium SerPl-mCncon 12-23 Magnesium [Mass/Vol] 2.0 mg/dL Normal 1.7-2.3 [facility] Comment on above: Order Comment: Speci men Type: BLOOD SPECIMEN Ordering Facility: [facility] Address: [address] [place] [address] Performed By: #### 1 9123-9, 00328-1 #### [facility] CLIA [id number] [address] Urinalysis complete panel (U )on 12-23-2024 Bacteria LM.HPF (Urine sed) [#/Area] Rare Abnormal None Seen [facility] Comment on above: Order Comment: Speci men Type: URINE SPECIMEN Ordering Facility: [facility] Address: [address] [place] [address] Performed By: #### 2 4356-8 #### [facility] CLIA [id number] [address] Bilirubin Ql (U) Negative Normal Negative [facility] Comment on above: Order Comment: Speci men Type: URINE SPECIMEN Ordering Facility: [facility] Address: [address] [place] [address] Performed By: #### 2 4356-8 #### [facility] CLIA [id number] [address] [place] Clarity (Unsp spec) Clear Normal Clear [facility] Comment on above: Order Comment: Speci men Type: URINE SPECIMEN Ordering Facility: [facility] Address: [address] [place] [address] Performed By: #### 2 4356-8 #### [facility] CLIA [id number] [address] [place] Color (U) Yellow Normal Yellow [facility] Comment on above: Order Comment: Speci men Type: URINE SPECIMEN Ordering Facility: [facility] Address: [address] [place] [address] Performed By: #### 2 4356-8 #### [facility] CLIA [id number] [address] [place] [address] [place] Epithelial cells LM.HPF (Urine sed) [#/Area] Few Normal [facility] Comment on above: Order Comment: Speci men Type: URINE SPECIMEN Ordering Facility: [facility] Address: [address] [place] [address] Performed By: #### 2 4356-8 #### [facility] CLIA [id number] [address] [place] Glucose Test strip (U) [Mass/Vol] Negative Normal Negative [facility] Comment on above: Order Comment: Speci men Type: URINE SPECIMEN Ordering Facility: [facility] Address: [address] [place] [address] Performed By: #### 2 4356-8 #### [facility] CLIA [id number] [address] [place] [address] [place] Hemoglobin Ql (U) Negative Normal Negative [facility] Comment on above: Order Comment: Speci men Type: URINE SPECIMEN Ordering Facility: [facility] Address: [address] [place] [address] Performed By: #### 2 4356-8 #### [facility] CLIA [id number] [address] [place] [address] [place] Ketones Ql (U) Negative Normal Negative [facility] Comment on above: Order Comment: Speci men Type: URINE SPECIMEN Ordering Facility: [facility] Address: [address] [place] [address] Performed By: #### 2 4356-8 #### [facility] CLIA [id number] [address] [place] [address] [place] [facility] [place] Leukocyte esterase Test strip Ql (U) Negative Normal Negative [facility] Comment on above: Order Comment: Speci men Type: URINE SPECIMEN Ordering Facility: [facility] Address: [address] [place] [address] Performed By: #### 2 4356-8 #### [facility] CLIA [id number] [address] [place] [address] [place] Nitrite Ql (U) Negative Normal Negative [facility] Comment on above: Order Comment: Speci men Type: URINE SPECIMEN Ordering Facility: [facility] Address: [address] [place] [address] Performed By: #### 2 4356-8 #### [facility] CLIA [id number] [address] [place] [address] [place] pH (U) 7.0 [pH] Normal 5.0-8.0 [facility] Comment on above: Order Comment: Speci men Type: URINE SPECIMEN Ordering Facility: [facility] Address: [address] [place] [address] Performed By: #### 2 4356-8 #### [facility] CLIA [id number] [address] [place] [address] [place] Protein (U) [Mass/Vol] Negative Normal Negative [facility] Comment on above: Order Comment: Speci men Type: URINE SPECIMEN Ordering Facility: [facility] Address: [address] [place] [address] Performed By: #### 2 4356-8 #### [facility] CLIA [id number] [address] [place] [address] [place] RBC LM.HPF (Urine sed) [#/Area] 0-3 /HPF Normal 0-3 /HPF [facility] Comment on above: Order Comment: Speci men Type: URINE SPECIMEN Ordering Facility: [facility] Address: [address] [place] [address] Performed By: #### 2 4356-8 #### [facility] CLIA [id number] [address] [place] [address] [place] Specific gravity (U) [Rel density] 1.015 Normal 1.005-1.030 [facility] Comment on above: Order Comment: Speci men Type: URINE SPECIMEN Ordering Facility: [facility] Address: [address] [place] [address] Performed By: #### 2 4356-8 #### [facility] CLIA [id number] [address] [place] Urobilinogen Ql (U) 0.2 EU/dL Normal 0.2-1.0 EU/dL [facility] Comment on above: Order Comment: Speci men Type: URINE SPECIMEN Ordering Facility: [facility] Address: [address] [place] [address] Performed By: #### 2 4356-8 #### [facility] CLIA [id number] [address] WBC LM.HPF (Urine sed) [#/Area] 0-5 /HPF Normal 0-5 /HPF [facility] Comment on above: Order Comment: Speci men Type: URINE SPECIMEN Ordering Facility: [facility] Address: [address] [place] [address] Performed By: #### 2 4356-8 #### [facility] CLIA [id number] [address] [place] Basophil percentageOrdered B y: Adelfo Dhaliwal on 11-11-2023 Cholesterol [Mass/Vol] 224 mg/dL <200 [facility] Comment on above: <200 mg/dL Desirable 200-240 mg/dL Borderline >240 mg/dL High Risk Triglyceride [Mass/Vol] 194 mg/dL <199 [facility] Comment on above: The drugs N-Acetylcy steine and Metamizole may falsely depress this assay.Serum Triglycerides Reference Interval Normal <150 mg/dL Borderline high 150 - 199 mg/dL High 200 - 499 mg/dL Very High > or = 500 mg/dL Laboratory - Chemistry and C hemistry - challengeOrdered By: Adelfo Dhaliwal on 11-11-2023 Cholesterol in HDL [Mass/Vol] 50 mg/dL >40 [facility] Comment on above: The drugs N-Acetylcy steine and Metamizole may falsely depress this assay. Reference Range HDL <40 mg/dL Low HDL Cholesterol HDL >or= 60 mg/dL High HDL Cholesterol Cholesterol in LDL [Mass/Vol] 135 mg/dL 0-130 [facility] No Panel InformationOrdered By: Adelfo Dhaliwal on 11-11-2023 VLDL Cholesterol 39 mg/dL 5-40 [facility] FLUAV H1+H3+FLUBV RNA CINTHIA+pr obe Ql (Unsp spec)Ordered By: Adelfo Dhaliwal on 11-03-2023 Influenza Types A & B (PCR) Influenzae A [facility] Basophil percentageOrdered B y: Adelfo Dhaliwal on 10-21-2023 Chloride [Moles/Vol] 107 mmol/L 98-107 [facility] Glucose [Mass/Vol] 133 mg/dL 74-106 [facility] Comment on above: Fasting Glucose resu lt greater than or equal to 126 mg/dL suggests DIABETES MELLITUS per A.D.A. criteria. Hemoglobin (Bld) [Mass/Vol] 14.4 g/dL 12.0-15.0 [facility] Potassium [Moles/Vol] 4.0 mmol/L 3.5-5.1 [facility] Sodium [Moles/Vol] 140 mmol/L 136-145 [facility] WBC (Bld) [#/Vol] 8.4 10*3/uL 4.4-11.0 [facility] Bilirubin Test strip Ql (U)O rdered By: Adelfo Dhaliwal on 10-21-2023 Bilirubin Ql (U) Negative Negative [facility] Culture, urineOrdered By: Danielle Dhaliwal on 10-21-2023 Bacteria identified Cx Nom (U) Mixed Gram Pos & Gram Neg Org [facility] Determination of erythrocyte mean corpuscular volume (MCV)Ordered By: Adelfo Dhaliwal on 10-21-2023 MCV (RBC) [Entitic vol] 95.3 fL 81-99 [facility] Erythrocyte distribution wid th ratioOrdered By: Adelfo Dhaliwal on 10-21-2023 Erythrocyte distribution width (RBC) [Ratio] 12.6 % 11.6-14.6 [facility] Erythrocyte distribution wid th standard deviationOrdered By: Adelfo Dhaliwal on 10-21-2023 Erythrocyte distribution width (RBC) [Entitic vol] 43.8 fL 35.1-43.9 [facility] Hematocrit Auto (Bld) [Volum e fraction]Ordered By: Adelfo Dhaliwal on 10-21-2023 Hematocrit (Bld) [Volume fraction] 44.7 % 37-47 [facility] Ketones Test strip Ql (U)Ord ered By: Adelfo Dhaliwal on 10-21-2023 Ketones Ql (U) Negative Negative [facility] Laboratory - Chemistry and C hemistry - challengeOrdered By: Adelfo Dhaliwal on 10-21-2023 CO2 [Moles/Vol] 27.0 mmol/L 21.0-32.0 [facility] Urea nitrogen/Creatinine [Mass ratio] 22.0 mg/mg 10-20 [facility] Laboratory - Hematology and Cell countsOrdered By: Adelfo Dhaliwal on 10-21-2023 MCH (RBC) [Entitic mass] 30.7 pg 27.0-32.0 [facility] MCHC (RBC) [Mass/Vol] 32.2 g/dL 32-36 [facility] Platelet mean volume (Bld) [Entitic vol] 9.9 fL 6.2-12.0 [facility] Platelets (Bld) [#/Vol] 259 10*3/uL 150-450 [facility] Nitrite Test strip Ql (U)Ord ered By: Adelfo Dhaliwal on 10-21-2023 Nitrite Ql (U) Negative Negative [facility] No Panel InformationOrdered By: Adelfo Dhaliwal on 10-21-2023 Estimated GFR (MDRD) Amer 149 mL/min >60 [facility] Comment on above: GFR Calc Estimated GFR (MDRD) Non-Af Amer 124 mL/min >60 [facility] Comment on above: Non- GFR Calc Protein Test strip Ql (U)Ord ered By: Adelfo Dhaliwal on 10-21-2023 Protein Ql (U) Negative Negative [facility] RBC Auto (Bld) [#/Vol]Ordere d By: Adelfo Dhaliwal on 10-21-2023 RBC (Bld) [#/Vol] 4.69 10*6/uL 4.2-5.4 [facility] Serum or plasma calcium ivette urement (mass/volume)Ordered By: Adelfo Dhaliwal on 10-21-2023 Calcium [Mass/Vol] 9.7 mg/dL 8.5-10.1 [facility] Serum or plasma creatinine m easurement (mass/volume)Ordered By: Adelfo Dhaliwal on 10-21-2023 Creatinine [Mass/Vol] 0.50 mg/dL 0.55-1.02 [facility] Comment on above: The validity of the calculated GFR & GFRAA in patients over 70 years has not been determined. Clinical correlation is essential. Serum or plasma urea nitroge n measurement (mass/volume)Ordered By: Adelfo Dhaliwal on 10-21-2023 Urea nitrogen [Mass/Vol] 11 mg/dL 7-18 [facility] Thin prep Papanicolaou smear with manual screeningOrdered By: Adelfo Dhaliwal on 10-21-2023 Thin prep Papanicolaou smear with manual screening 6 5-15 [facility] Urine blood detectionOrdered By: Adelfo Dhaliwal on 10-21-2023 RBC Ql (U) Negative Negative [facility] Urine clarityOrdered By: Paul Dhaliwal on 10-21-2023 Clarity (U) Sl. Cloudy Clear [facility] Urine color determinationOrd ered By: Adelfo Dhaliwal on 10-21-2023 Color (U) Yellow Yellow [facility] Urine glucose detectionOrder ed By: Adelfo Dhaliwal on 10-21-2023 Glucose Ql (U) Normal mg/dl Normal [facility] Urine leukocyte esterase det ection by dipstickOrdered By: Adelfo Dhaliwal on 10-21-2023 Leukocyte esterase Test strip Ql (U) 25 /ul Negative [facility] Urine pHOrdered By: Adelfo ortiz on 10-21-2023 pH (U) 7.0 [pH] 5.0 - 8.0 [facility] Urine specific gravity measu rementOrdered By: Adelfo Dhaliwal on 10-21-2023 Specific gravity (U) [Rel density] 1.010 1.002-1.030 [facility] Urine urobilinogen measureme ntOrdered By: Adelfo Dhaliwal on 10-21-2023 Urobilinogen Ql (U) Normal mg/dl Normal [facility] Bilirubin Test strip Ql (U)O rdered By: Adelfo Dhaliwal on 07-15-2023 Bilirubin Ql (U) Negative Negative [facility] Culture, urineOrdered By: Danielle Dhaliwal on 07-15-2023 Bacteria identified Cx Nom (U) Culture exhibits no growth. [facility] Bacteria identified Cx Nom (U) Culture exhibits no growth. [facility] Ketones Test strip Ql (U)Ord ered By: Adelfo Dhaliwal on 07-15-2023 Ketones Ql (U) Negative Negative [facility] Nitrite Test strip Ql (U)Ord ered By: Adelfo Dhaliwal on 07-15-2023 Nitrite Ql (U) Negative Negative [facility] Protein Test strip Ql (U)Ord ered By: Adelfo Dhaliwal on 07-15-2023 Protein Ql (U) 30 mg/dl Negative [facility] Urine blood detectionOrdered By: Adelfo Dhaliwal on 07-15-2023 RBC Ql (U) 50 /ul Negative [facility] Urine clarityOrdered By: Paul Dhaliwal on 07-15-2023 Clarity (U) Sl. Cloudy Clear [facility] Urine color determinationOrd ered By: Adelfo Dhaliwal on 07-15-2023 Color (U) Yellow Yellow [facility] Urine glucose detectionOrder ed By: Adelfo Dhaliwla on 07-15-2023 Glucose Ql (U) Normal mg/dl Normal [facility] Urine leukocyte esterase det ection by dipstickOrdered By: Adelfo Dhaliwal on 07-15-2023 Leukocyte esterase Test strip Ql (U) Negative Negative [facility] Urine pHOrdered By: Adelfo ortiz on 07-15-2023 pH (U) 5.0 [pH] 5.0 - 8.0 [facility] Urine specific gravity measu rementOrdered By: Adelfo Dhaliwal on 07-15-2023 Specific gravity (U) [Rel density] 1.025 1.002-1.030 [facility] Urobilinogen Auto test strip Ql (U)Ordered By: Adelfo Dhaliwal on 07-15-2023 Urobilinogen Ql (U) Normal mg/dl Normal [facility] Basophil percentageOrdered B y: Adelfo Dhaliwal on 07-12-2023 Cholesterol [Mass/Vol] 124 mg/dL <200 [facility] Comment on above: <200 mg/dL Desirable 200-240 mg/dL Borderline >240 mg/dL High Risk Triglyceride [Mass/Vol] 156 mg/dL <199 [facility] Comment on above: The drugs N-Acetylcy steine and Metamizole may falsely depress this assay.Serum Triglycerides Reference Interval Normal <150 mg/dL Borderline high 150 - 199 mg/dL High 200 - 499 mg/dL Very High > or = 500 mg/dL Laboratory - Chemistry and C hemistry - challengeOrdered By: Adelfo Dhaliwal on 07-12-2023 T4 [Mass/Vol] 10.3 ug/dL 4.8-13.9 [facility] No Panel InformationOrdered By: Adelfo Dhaliwal on 07-12-2023 Thyroid Stimulating Hormone (TSH) 0.98 uIU/mL 0.358-3.74 [facility] Total Triiodothyronine 0.84 ng/mL 0.6-1.81 [facility] Vitamin D 25-Hydroxy 61.9 ng/mL [facility] Comment on above: Vitamin D 25(OH) Sta tus Range Deficiency <20 ng/mL (50nmol/L) Insufficiency 20 - 30 ng/mL (50 - 75 nmol/L) Sufficiency 30 - 100 ng/mL (75 - 250 nmol/L) Toxicity >100 ng/mL (>250 nmol/L) Serum or plasma cholesterol in HDL measurement (mass/volume)Ordered By: Adelfo Dhaliwal on 07-12-2023 Cholesterol in HDL [Mass/Vol] 46 mg/dL >40 [facility] Comment on above: The drugs N-Acetylcy steine and Metamizole may falsely depress this assay. Reference Range HDL <40 mg/dL Low HDL Cholesterol HDL >or= 60 mg/dL High HDL Cholesterol Serum or plasma cholesterol in VLDL measurement (mass/volume)Ordered By: Adelfo Dhaliwal on 07-12-2023 Cholesterol in VLDL [Mass/Vol] 31 mg/dL 5-40 [facility] Serum or plasma low density lipoprotein (LDL) cholesterol measurement (mass/volume)Ordered By: Adelfo Dhaliwal on 07-12-2023 Cholesterol in LDL [Mass/Vol] 47 mg/dL 0-130 [facility] Basophil percentageOrdered B y: Adelfo Dhaliwal on 06-10-2023 Chloride [Moles/Vol] 106 mmol/L 98-107 [facility] Glucose [Mass/Vol] 209 mg/dL 74-106 [facility] Comment on above: Glucose result great er than or equal to 200 mg/dLsuggests DIABETES MELLITUS per A.D.A. criteria. Potassium [Moles/Vol] 3.9 mmol/L 3.5-5.1 [facility] Sodium [Moles/Vol] 135 mmol/L 136-145 [facility] WBC (Bld) [#/Vol] 11.1 10*3/uL 4.4-11.0 [facility] Blood erythrocytes count (nu mber/volume)Ordered By: Adelfo Dhaliwal on 06-10-2023 RBC (Bld) [#/Vol] 4.52 10*6/uL 4.2-5.4 [facility] Blood hemoglobin measurement (mass/volume)Ordered By: Adelfo Dhaliwal on 06-10-2023 Hemoglobin (Bld) [Mass/Vol] 13.8 g/dL 12.0-15.0 [facility] Blood platelet mean volumeOr dered By: Adelfo Dhaliwal on 06-10-2023 Platelet mean volume (Bld) [Entitic vol] 10.1 fL 6.2-12.0 [facility] Determination of erythrocyte mean corpuscular volume (MCV)Ordered By: Adelfo Dhaliwal on 06-10-2023 MCV (RBC) [Entitic vol] 96.7 fL 81-99 [facility] Hematocrit Auto (Bld) [Volum e fraction]Ordered By: Adelfo Dhaliwal on 06-10-2023 Hematocrit (Bld) [Volume fraction] 43.7 % 37-47 [facility] Laboratory - Chemistry and C hemistry - challengeOrdered By: Adelfo Dhaliwal on 06-10-2023 CO2 [Moles/Vol] 27.0 mmol/L 21.0-32.0 [facility] Urea nitrogen/Creatinine [Mass ratio] 28.3 mg/mg 10-20 [facility] Laboratory - Hematology and Cell countsOrdered By: Adelfo Dhaliwal on 06-10-2023 Erythrocyte distribution width (RBC) [Entitic vol] 44.8 fL 35.1-43.9 [facility] Erythrocyte distribution width (RBC) [Ratio] 12.5 % 11.6-14.6 [facility] MCH (RBC) [Entitic mass] 30.5 pg 27.0-32.0 [facility] MCHC Auto (RBC) [Mass/Vol]Or dered By: Adelfo Dhaliwal on 06-10-2023 MCHC (RBC) [Mass/Vol] 31.6 g/dL 32-36 [facility] No Panel InformationOrdered By: Adelfo Dhaliwal on 06-10-2023 Estimated GFR (MDRD) Amer 152 mL/min >60 [facility] Comment on above: GFR Calc Estimated GFR (MDRD) Non-Af Amer 125 mL/min >60 [facility] Comment on above: Non- GFR Calc Platelets bldOrdered By: Paul Dhaliwal on 06-10-2023 Platelets (Bld) [#/Vol] 262 10*3/uL 150-450 [facility] Serum or plasma calcium ivette urement (mass/volume)Ordered By: Adelfo Dhaliwal on 06-10-2023 Calcium [Mass/Vol] 9.3 mg/dL 8.5-10.1 [facility] Serum or plasma creatinine m easurement (mass/volume)Ordered By: Adelfo Dhaliwal on 06-10-2023 Creatinine [Mass/Vol] 0.50 mg/dL 0.55-1.02 [facility] Comment on above: The validity of the calculated GFR & GFRAA in patients over 70 years has not been determined. Clinical correlation is essential. Serum or plasma urea nitroge n measurement (mass/volume)Ordered By: Adelfo Dhaliwal on 06-10-2023 Urea nitrogen [Mass/Vol] 14 mg/dL 7-18 [facility] Thin prep Papanicolaou smear with manual screeningOrdered By: Adelfo Dhaliwal on 06-10-2023 Thin prep Papanicolaou smear with manual screening 2 5-15 [facility] Whole blood hemoglobin A1c/t otal hemoglobin ratio (mass fraction)Ordered By: Adelfo Dhaliwal on 06-10-2023 HbA1c (Bld) [Mass fraction] 8.0 % 3.8-5.6 [facility] Comment on above: Normal < 5.7 % Predi abetic 5.7 - 6.4 % Diabetic >or= 6.5 % Please note range changes. Office Visiton 02-25-2023 Follow-up visit [id number] Raudel Ahumada 1935 F Date Provider Department Center 02/25/2023 [id number] [facility] WAD None Family History Problem Relation Age of Onset Diabetes Mother Coronary artery disease Brother Stroke Mother Cancer Brother Heart disease Father Diabetes Brother Heart disease Mother Stroke Brother Heart disease Brother Family Status - Relation Status Age at Mother Brother Father Level of Service:57384 NE OFFICE/OUTPATIENT NEW LOW MDM 30-44 MINUTES Reason for Visit and Comments: Back Pain [12] - Left lower leg Normal [facility] Progress Noteon 02-25-2023 Progress Note [facility] [address] [place] [address] Dept: [phone] Dept Chief Complaint Patient presents with Back [...] surgery: no Occupation: Retired- currently living at [facility], 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 No significant change in her back pain for 3 years. 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 We recommended continued maintenance of her strength level and continued formal physical therapy. We will go ahead and write an order for her to get formal physical therapy at [facility] for her chronic weakness. Follow-up with neurology for any potential care for her left hemiparesis. Follow up if symptoms worsen or fail to improve, for call our office with any questions at [phone]. Patricia Harris MD 02/25/2023 10:03 AM Please note that portions of this note may have been completed with voice recognition software. (more content not included)... Normal [facility] Basophil percentageOrdered B y: Adelfo Dhaliwal on 02-14-2023 Chloride [Moles/Vol] 108 mmol/L 98-107 [facility] Glucose [Mass/Vol] 128 mg/dL 74-106 [facility] Comment on above: Fasting Glucose resu lt greater than or equal to 126 mg/dL suggests DIABETES MELLITUS per A.D.A. criteria. Potassium [Moles/Vol] 4.0 mmol/L 3.5-5.1 [facility] Sodium [Moles/Vol] 143 mmol/L 136-145 [facility] Laboratory - Chemistry and C hemistry - challengeOrdered By: Adelfo Dhaliwal on 02-14-2023 CO2 [Moles/Vol] 29.0 mmol/L 21.0-32.0 [facility] Urea nitrogen/Creatinine [Mass ratio] 32.2 mg/mg 10-20 [facility] No Panel InformationOrdered By: Adelfo Dhaliwal on 02-14-2023 Estimated GFR (MDRD) Amer 176 mL/min >60 [facility] Comment on above: GFR Calc Estimated GFR (MDRD) Non-Af Amer 146 mL/min >60 [facility] Comment on above: Non- GFR Calc Serum or plasma calcium ivette urement (mass/volume)Ordered By: Adelfo Dhaliwal on 02-14-2023 Calcium [Mass/Vol] 9.5 mg/dL 8.5-10.1 [facility] Serum or plasma creatinine m easurement (mass/volume)Ordered By: Adelof Dhaliwal on 02-14-2023 Creatinine [Mass/Vol] 0.44 mg/dL 0.55-1.02 [facility] Comment on above: The validity of the calculated GFR & GFRAA in patients over 70 years has not been determined. Clinical correlation is essential. Serum or plasma urea nitroge n measurement (mass/volume)Ordered By: Adelfo Dhaliwal on 02-14-2023 Urea nitrogen [Mass/Vol] 14 mg/dL 7-18 [facility] Serum or plasma uric acid me asurement (mass/volume)Ordered By: Adelfo Dhaliwal on 02-14-2023 Urate [Mass/Vol] 4.9 mg/dL 2.6-6.0 [facility] Comment on above: The drugs N-Acetylcy steine and Metamizole may falsely depress this assay. Thin prep Papanicolaou smear with manual screeningOrdered By: Adelfo Dhaliwal on 02-14-2023 Thin prep Papanicolaou smear with manual screening 6 5-15 [facility] Basophil percentageOrdered B y: Adelfo Dhaliwal on 01-16-2023 Cholesterol [Mass/Vol] 121 mg/dL <200 [facility] Comment on above: <200 mg/dL Desirable 200-240 mg/dL Borderline >240 mg/dL High Risk Triglyceride [Mass/Vol] 124 mg/dL <199 [facility] Comment on above: The drugs N-Acetylcy steine and Metamizole may falsely depress this assay.Serum Triglycerides Reference Interval Normal <150 mg/dL Borderline high 150 - 199 mg/dL High 200 - 499 mg/dL Very High > or = 500 mg/dL Laboratory - Chemistry and C hemistry - challengeOrdered By: Adelfo Dhaliwal on 01-16-2023 Magnesium [Mass/Vol] 2.1 mg/dL 1.6-2.6 [facility] Comment on above: Slight Hemolysis, Re sult may be falsely increased. No Panel InformationOrdered By: Adelfo Dhaliwal on 01-16-2023 Thyroid Stimulating Hormone (TSH) 1.03 uIU/mL 0.358-3.74 [facility] Vitamin D 25-Hydroxy 80.6 ng/mL [facility] Comment on above: Vitamin D 25(OH) Sta tus Range Deficiency <20 ng/mL (50nmol/L) Insufficiency 20 - 30 ng/mL (50 - 75 nmol/L) Sufficiency 30 - 100 ng/mL (75 - 250 nmol/L) Toxicity >100 ng/mL (>250 nmol/L) Serum or plasma cholesterol in HDL measurement (mass/volume)Ordered By: Adelfo Dhaliwal on 01-16-2023 Cholesterol in HDL [Mass/Vol] 46 mg/dL >40 [facility] Comment on above: The drugs N-Acetylcy steine and Metamizole may falsely depress this assay. Reference Range HDL <40 mg/dL Low HDL Cholesterol HDL >or= 60 mg/dL High HDL Cholesterol Serum or plasma cholesterol in VLDL measurement (mass/volume)Ordered By: Adelfo Dhaliwal on 01-16-2023 Cholesterol in VLDL [Mass/Vol] 25 mg/dL 5-40 [facility] Serum or plasma low density lipoprotein (LDL) cholesterol measurement (mass/volume)Ordered By: Adelfo Dhaliwal on 01-16-2023 Cholesterol in LDL [Mass/Vol] 50 mg/dL 0-130 [facility] Whole blood hemoglobin A1c/t otal hemoglobin ratio (mass fraction)Ordered By: Adelfo Dhaliwal on 01-09-2023 HbA1c (Bld) [Mass fraction] 8.4 % 3.8-5.6 [facility] Comment on above: Normal < 5.7 % Predi abetic 5.7 - 6.4 % Diabetic >or= 6.5 % Please note range changes. Telephone Encounteron 2022 [facility] [employer] Interface Message Text Patient is calling to states she had dentures that Dr Ayala took to have them to realign. Patient states the bottom denture was never returned to her. Patient states the dentures were not made in the clinic. They were made outside of [facility]. When she seen Dr Ayala in June 2022 he performed another mold and she is waiting to pick them up. Pls call pt @ [phone] Thank you Normal [facility] [employer] Authentication Interface Message Text Spoke with patient regarding her dentures. Explained to her that Dr. Ayala does not make dentures. Provided the contact information for [facility] and explained that if these dentures have been made by a [facility] provider, this is the department that will have them, otherwise she will need to see an outside dentist to have dentures made. Patient understood. Titus Ramirez DMD marbleizing machine tender, PGY-3 Team Pager: [phone] [facility] [employer] Authentication Interface Message Text The patient called [...] about this and can be reached at [phone] Thank You! Normal [facility] Laboratory - Chemistry and C hemistry - challengeOrdered By: Adelfo Dhaliwal on 10-30-2022 Magnesium [Mass/Vol] 1.8 mg/dL 1.6-2.6 [facility] Whole blood hemoglobin A1c/t otal hemoglobin ratio (mass fraction)Ordered By: Adelfo Dhaliwal on 10-30-2022 HbA1c (Bld) [Mass fraction] 6.6 % 3.8-5.6 [facility] Comment on above: Normal < 5.7 % Predi abetic 5.7 - 6.4 % Diabetic >or= 6.5 % Please note range changes. Basophil percentageOrdered B y: Adelfo Dhaliwal on 10-01-2022 Chloride [Moles/Vol] 107 mmol/L 98-107 [facility] Glucose [Mass/Vol] 125 mg/dL 74-106 [facility] Comment on above: Fasting Glucose resu lt from 100 to 125 mg/dL suggests IMPAIRED HOMEOSTASIS per A.D.A. criteria. Potassium [Moles/Vol] 4.3 mmol/L 3.5-5.1 [facility] Sodium [Moles/Vol] 140 mmol/L 136-145 [facility] Laboratory - Chemistry and C hemistry - challengeOrdered By: Adelfo Dhaliwal on 10-01-2022 CO2 [Moles/Vol] 24.0 mmol/L 21.0-32.0 [facility] Urea nitrogen/Creatinine [Mass ratio] 23.6 mg/mg [facility] No Panel InformationOrdered By: Adelfo Dhaliwal on 10-01-2022 Estimated GFR (MDRD) Amer 134 mL/min >60 [facility] Comment on above: GFR Calc Estimated GFR (MDRD) Non-Af Amer 111 mL/min >60 [facility] Comment on above: Non- GFR Calc Serum or plasma calcium ivette urement (mass/volume)Ordered By: Adelfo Dhaliwal on 10-01-2022 Calcium [Mass/Vol] 9.8 mg/dL 8.5-10.1 [facility] Serum or plasma creatinine m easurement (mass/volume)Ordered By: Adlefo Dhaliwal on 10-01-2022 Creatinine [Mass/Vol] 0.55 mg/dL 0.55-1.02 [facility] Comment on above: The validity of the calculated GFR & GFRAA in patients over 70 years has not been determined. Clinical correlation is essential. Serum or plasma urea nitroge n measurement (mass/volume)Ordered By: Adelfo Dhaliwal on 10-01-2022 Urea nitrogen [Mass/Vol] 13 mg/dL 7-18 [facility] Thin prep Papanicolaou smear with manual screeningOrdered By: Adelfo Dhaliwal on 10-01-2022 Thin prep Papanicolaou smear with manual screening 9 5-15 [facility] Patient Instructionson 06-19 [employer] [facility] [employer]hentication Interface Message Text Dental extraction Instructions [...] done to speak with an oral surgeon. [facility] [phone]. HELPING THE HEALING PROCESS AND STOPPING THE [...] c (more content not included)... Normal [facility] Progress Noteson 06-19-2022 [employer] Authentication Interface Message Text Normal [facility] Telephone Encounteron 2021 [facility] Authentication Interface Message Text Keerthi from [facility] called to confirm the Pa was approved. Approval noted 05/28. Please call [phone] to schedule the patient. Thank you! Normal [facility] Telephone Encounteron 2021 [facility] Authentication Interface Message Text Patient is calling again asking what's the update of her PA, and when would be the surgery date/time. Please reach out to pt. Thank you! Normal [facility] Telephone Encounteron 2021 [employer] Authentication Interface Message Text Steffi Hale marquetry worker from [facility] called regarding the patient. Steffi states the patient has decided to use our services for Oral surgery. Patient had a consultation on 04/17, and Steffi would like to go forward with the process. Once the insurance approves the surgery, please call [facility] and speak to the [address] [place] [address] nurse to schedule at [phone]. Thank you! Normal [facility] Progress Noteson 04-18-2022 [employer] Authentication Interface Message Text Teaching Physician Note: I saw and evaluated the patient. I personally obtained the otero and critical portions of the history and physical exam. I reviewed the resident's documentation and discussed the patient with the resident. I agree with the resident's medical decision making as documented in the resident's note. López Ayala DDS Normal [facility] Patient Instructionson 04-17 [facility] Authentication Interface Message Text Dental extraction Instructions [...] done to speak with an oral surgeon. [facility] [phone]. HELPING THE HEALING PROCESS AND STOPPING THE [...] c (more content not included)... Normal [facility] Progress Noteson 04-17-2022 [employer] Authentication Interface Message Text Tooth #3 Normal [facility] Ash Handler Authentication Interface Message Text [facility] PATIENT VISIT CHIEF COMPLAINT: Toothache HISTORY OF PRESENT ILLNESS: 86 yo F with pmhx significant for T2DM, obesity, COPD, and asthma presents to the [facility] clinic for consult for [...] that the future appointment was not in [place] where she is located. Informed patient about today's appointment was a consultation and all procedures are completed here on [facility], [address] [place]. Discussed sedation. Pt wanted to be asleep, [...] with us or a local surgeon near [place]. Will also require PANO for patient as there was no pano sent from referring provider prior to the time the appointment. Jules Moore DMD Normal [facility] Basophil percentageon 2021 Bilirubin [Mass/Vol] 0.80 mg/dL 0.20-1.00 [facility] Work Phone: Comment on above: For patients on eltr ombopag therapy, use of Dimension [place] TBIL is not recommended. Chloride [Moles/Vol] 107 mmol/L 98-107 [facility] Work Phone: Cholesterol [Mass/Vol] 150 mg/dL <200 [facility] Work Phone: Comment on above: <200 mg/dL Desirable 200-240 mg/dL Borderline >240 mg/dL High Risk Glucose [Mass/Vol] 135 mg/dL 74-106 [facility] Work Phone: Comment on above: Fasting Glucose resu lt greater than or equal to 126 mg/dL suggests DIABETES MELLITUS per A.D.A. criteria. Potassium [Moles/Vol] 4.1 mmol/L 3.5-5.1 [facility] Work Phone: Comment on above: Slight Hemolysis, Re sult may be falsely increased. Protein [Mass/Vol] 6.6 g/dL 6.4-8.2 [facility] Work Phone: Sodium [Moles/Vol] 140 mmol/L 136-145 [facility] Work Phone: Triglyceride [Mass/Vol] 105 mg/dL [facility] Work Phone: Comment on above: The drugs N-Acetylcy steine and Metamizole may falsely depress this assay.Serum Triglycerides Reference Interval Normal <150 mg/dL Borderline high 150 - 199 mg/dL High 200 - 499 mg/dL Very High > or = 500 mg/dL WBC (Bld) [#/Vol] 7.9 10*3/uL 4.4-11.0 [facility] Work Phone: Blood erythrocytes count (nu mber/volume)on 12-21-2021 RBC (Bld) [#/Vol] 4.28 10*6/uL 4.2-5.4 [facility] Work Phone: Blood hemoglobin measurement (mass/volume)on 12-21-2021 Hemoglobin (Bld) [Mass/Vol] 13.4 g/dL 12.0-15.0 [facility] Work Phone: Blood platelet mean volumeon 12-21-2021 Platelet mean volume (Bld) [Entitic vol] 9.8 fL 6.2-12.0 [facility] Work Phone: Determination of erythrocyte mean corpuscular volume (MCV)on 12-21-2021 MCV (RBC) [Entitic vol] 96.5 fL 81-99 [facility] Work Phone: Hematocrit Auto (Bld) [Volum e fraction]on 12-21-2021 Hematocrit (Bld) [Volume fraction] 41.3 % 37-47 [facility] Work Phone: Laboratory - Chemistry and C hemistry - challengeon 12-21-2021 ALP [Catalytic activity/Vol] 120 U/L 45-117 [facility] Work Phone: ALT [Catalytic activity/Vol] 23 U/L 13-56 [facility] Work Phone: CO2 [Moles/Vol] 29.0 mmol/L 21.0-32.0 [facility] Work Phone: Globulin (S) [Mass/Vol] 3.6 g/dL 2.2-4.2 [facility] Work Phone: Urea nitrogen/Creatinine [Mass ratio] 31.4 mg/mg 10-20 [facility] Work Phone: Laboratory - Hematology and Cell countson 12-21-2021 Erythrocyte distribution width (RBC) [Entitic vol] 44.5 fL 35.1-43.9 [facility] Work Phone: Erythrocyte distribution width (RBC) [Ratio] 12.6 % 11.6-14.6 [facility] Work Phone: MCH (RBC) [Entitic mass] 31.3 pg 27.0-32.0 [facility] Work Phone: MCHC Auto (RBC) [Mass/Vol]on 12-21-2021 MCHC (RBC) [Mass/Vol] 32.4 g/dL 32-36 [facility] Work Phone: No Panel Informationon 12-21 Estimated GFR (MDRD) Amer 128 mL/min >60 [facility] Work Phone: Comment on above: GFR Calc Estimated GFR (MDRD) Non-Af Amer 106 mL/min >60 [facility] Work Phone: Comment on above: Non- GFR Calc Thyroid Stimulating Hormone (TSH) 0.70 uIU/mL 0.358-3.74 [facility] Work Phone: Vitamin D 25-Hydroxy 51.9 ng/mL [facility] Work Phone: Comment on above: Vitamin D 25(OH) Sta tus Range Deficiency <20 ng/mL (50nmol/L) Insufficiency 20 - 30 ng/mL (50 - 75 nmol/L) Sufficiency 30 - 100 ng/mL (75 - 250 nmol/L) Toxicity >100 ng/mL (>250 nmol/L) Platelets bldon 12-21-2021 Platelets (Bld) [#/Vol] 262 10*3/uL 150-450 [facility] Work Phone: Serum or plasma albumin ivette urement (mass/volume)on 12-21-2021 Albumin [Mass/Vol] 3.0 g/dL 3.2-5.0 [facility] Work Phone: Serum or plasma albumin/glob ulin mass ratioon 12-21-2021 Albumin/Globulin [Mass ratio] 0.8 {ratio} 0.9-2.4 [facility] Work Phone: Serum or plasma calcium ivette urement (mass/volume)on 12-21-2021 Calcium [Mass/Vol] 9.5 mg/dL 8.5-10.1 [facility] Work Phone: Serum or plasma cholesterol in HDL measurement (mass/volume)on 12-21-2021 Cholesterol in HDL [Mass/Vol] 57 mg/dL [facility] Work Phone: Comment on above: The drugs N-Acetylcy steine and Metamizole may falsely depress this assay. Reference Range HDL <40 mg/dL Low HDL Cholesterol HDL >or= 60 mg/dL High HDL Cholesterol Serum or plasma cholesterol in VLDL measurement (mass/volume)on 12-21-2021 Cholesterol in VLDL [Mass/Vol] 21 mg/dL 5-40 [facility] Work Phone: Serum or plasma creatinine m easurement (mass/volume)on 12-21-2021 Creatinine [Mass/Vol] 0.57 mg/dL 0.55-1.02 [facility] Work Phone: Comment on above: The validity of the calculated GFR & GFRAA in patients over 70 years has not been determined. Clinical correlation is essential. Serum or plasma low density lipoprotein (LDL) cholesterol measurement (mass/volume)on 12-21-2021 Cholesterol in LDL [Mass/Vol] 72 mg/dL 0-130 [facility] Work Phone: Serum or plasma urea nitroge n measurement (mass/volume)on 12-21-2021 Urea nitrogen [Mass/Vol] 18 mg/dL 7-18 [facility] Work Phone: Thin prep Papanicolaou smear with manual screeningon 12-21-2021 Thin prep Papanicolaou smear with manual screening 15 U/L 15-37 [facility] Work Phone: Comment on above: Slight Hemolysis, Re sult may be falsely increased. Thin prep Papanicolaou smear with manual screening 4 5-15 [facility] Work Phone: Whole blood hemoglobin A1c/t otal hemoglobin ratio (mass fraction)on 12-21-2021 HbA1c (Bld) [Mass fraction] 6.4 % 3.8-5.6 [facility] Work Phone: Comment on above: Normal < 5.7 % Predi abetic 5.7 - 6.4 % Diabetic >or= 6.5 % Please note range changes. CR Spine Lumbosacral 4+ View son 06-15-2020 CR Spine Lumbosacral 4+ Views Patient Name: RAUDEL AHUMADA Diagnostic Radiology Exam Date/Time 06/15/2020 14:37:53 EST Exam CR Spine Lumbosacral 4+ Views Ordering Physician MD DILEEP, MAIDA Accession Number [id number] CPT4 Codes 96440 () Reason For Exam lumbar back pain [...] anterolisthesis at L4-L5. Report Dictated on Workstation: [id number] Final Dictating Physician: DO LLOYD ALFRED Signed Date and Time: 06/15/2020 3:14 pm Signed by: DO LLOYD ALFRED Transcribed Date and Time: 06/15/2020 3:16 Normal [facility] XR LUMBAR SPINE (MIN 4 VIEWS )on 06-15-2020 Patient Name: RAUDEL AHUMADA ---Diagnostic Radiology--- Exam Date/Time 06/15/2020 14:37:53 EST Exam CR Spine Lumbosacral 4+ Views Ordering Physician MD DOSHI DIANA Accession Number [id number] CPT4 Codes 54804 () Reason For Exam lumbar back pain [...] ALFRED Transcribed Date and Time: 06/15/2020 3:16 [facility], [facility] Incoming Radiology Results From [facility] - 06/15/2020 3:16 PM EST Patient Name: RAUDEL AHUMADA ---Diagnostic Radiology--- Exam Date/Time 06/15/2020 14:37:53 EST Exam CR Spine Lumbosacral 4+ Views Ordering Physician MD DILEEP MAIDA Accession Number [id number] CPT4 Codes 21812 () Reason For Exam lumbar back pain [...] ALFRED Transcribed Date and Time: 06/15/2020 3:16 [place], [place] CBC Auto Differentialon 10-0 Absolute Baso # 0.1 10*3/uL 0 - 0.2 10*3/uL [place] Absolute Neut # 4.8 10*3/uL 1.8 - 7 10*3/uL [place] Basophils/100 WBC (Bld) 0.9 % 0 - 2 % [place] Eosinophils (Bld) [#/Vol] 0.2 10*3/uL 0 - 0.5 10*3/uL [place] Eosinophils/100 WBC (Bld) 2.5 % 1 - 6 % [place] Erythrocyte distribution width (RBC) [Ratio] 12.9 % 11.5 - 14.5 % [place] Granulocytes/100 WBC (Bld) 52.8 % 40 - 80 % [place] Hematocrit (Bld) [Volume fraction] 46.8 % 35 - 47 % [place] Hemoglobin (Bld) [Mass/Vol] 16.2 g/dL High 11.7 - 16 g/dL [place] Interpretation and review of laboratory results Abnormal [place] Lymphocytes (Bld) [#/Vol] 3.4 10*3/uL 1 - 4.3 10*3/uL [place] Lymphocytes/100 WBC (Bld) 36.9 % 20 - 40 % [place] MCH (RBC) [Entitic mass] 31.9 pg 26 - 34 pg [place] MCHC (RBC) [Mass/Vol] 34.7 % 32 - 36 % [place], [place] MCV (RBC) [Entitic vol] 91.8 fL 79 - 98 fL [place], [place] Monocytes (Bld) [#/Vol] 0.6 10*3/uL 0 - 0.8 10*3/uL [place] Monocytes/100 WBC (Bld) 6.9 % 2 - 10 % [place] Platelet mean volume (Bld) [Entitic vol] 7.7 fL 7.4 - 10.4 [place] Platelets (Bld) [#/Vol] 298 10*3/uL 140 - 440 10*3/uL [place] RBC (Bld) [#/Vol] 5.10 10*6/uL 3.8 - 5.2 10*6/uL [place] WBC (Bld) [#/Vol] 9.1 10*3/uL 3.6 - 10.7 10*3/uL [place] Test Performed by [facility], [address] [place], [place] [address] , [place], [place] [id number] [place] [address] Comp Metabolic Panelon 05-12 ALT [Catalytic activity/Vol] 17 U/L Normal 0-34 [facility] Comment on above: Result Comment: The ALT test is performed by an updated assay method. Please note that the reference intervals have been changed and are now sex specific. Performed By: #### L IPD2, HEMDF, TSH5, CMP3, HA1C2 #### [facility] [address] [place] [address] Calcium [Mass/Vol] 10.5 mg/dL High 8.4-10.4 [facility] Comment on above: Performed By: #### L IPD2, HEMDF, TSH5, CMP3, HA1C2 #### [facility] [address] [place] [address] ALP [Catalytic activity/Vol] 104 U/L Normal 38-126 [facility] Comment on above: Performed By: #### L IPD2, HEMDF, TSH5, CMP3, HA1C2 #### [facility] [address] [place] [address] Anion gap [Moles/Vol] 9 Normal [facility] Comment on above: Performed By: #### L IPD2, HEMDF, TSH5, CMP3, HA1C2 #### [facility] [address] [place] [address] AST [Catalytic activity/Vol] 20 U/L Normal 15-46 [facility] Comment on above: Performed By: #### L IPD2, HEMDF, TSH5, CMP3, HA1C2 #### [facility] [address] [place] [address] Bilirubin [Mass/Vol] 1.0 mg/dL Normal 0.2-1.3 [facility] Comment on above: Performed By: #### L IPD2, HEMDF, TSH5, CMP3, HA1C2 #### [facility] [address] [place] [address] CO2 [Moles/Vol] 25 mmol/L Normal 22-30 [facility] Comment on above: Performed By: #### L IPD2, HEMDF, TSH5, CMP3, HA1C2 #### [facility] [address] [place] [address] Creatinine [Mass/Vol] 0.59 mg/dL Normal 0.52-1.25 [facility] Comment on above: Performed By: #### L IPD2, HEMDF, TSH5, CMP3, HA1C2 #### [facility] [address] [place] [address] GFR/1.73 sq M predicted among blacks MDRD (S/P/Bld) [Vol rate/Area] mL/min/{1.73_m2} Normal >60 [facility] Comment on above: Performed By: #### L IPD2, HEMDF, TSH5, CMP3, HA1C2 #### [facility] [address] [place] [address] GFR/1.73 sq M predicted among non-blacks MDRD (S/P/Bld) [Vol rate/Area] 83.9 mL/min/{1.73_m2} Normal >60 [facility] Comment on above: Result Comment: KDIG [...] L IPD2, HEMDF, TSH5, CMP3, HA1C2 #### [facility] [address] [place] [address] Glucose [Mass/Vol] 146 mg/dL High 70-100 [facility] Comment on above: Performed By: #### L IPD2, HEMDF, TSH5, CMP3, HA1C2 #### [facility] [address] [place] [address] Protein [Mass/Vol] 7.1 g/dL Normal 6.3-8.2 [facility] Comment on above: Performed By: #### L IPD2, HEMDF, TSH5, CMP3, HA1C2 #### [facility] [address] [place] [address] Urea nitrogen [Mass/Vol] 20 mg/dL Normal 7-20 [facility] Comment on above: Performed By: #### L IPD2, HEMDF, TSH5, CMP3, HA1C2 #### [facility] [address] [place] [address] Chloride [Moles/Vol] 105 mmol/L Normal 98-107 [facility] Comment on above: Performed By: #### L IPD2, HEMDF, TSH5, CMP3, HA1C2 #### [facility] [address] [place] [address] Potassium [Moles/Vol] 4.1 mmol/L Normal 3.5-5.1 [facility] Comment on above: Performed By: #### L IPD2, HEMDF, TSH5, CMP3, HA1C2 #### [facility] [address] [place] [address] Sodium [Moles/Vol] 139 mmol/L Normal 135-145 [facility] Comment on above: Performed By: #### L IPD2, HEMDF, TSH5, CMP3, HA1C2 #### [facility] [address] [place] [address] Albumin [Mass/Vol] 4.4 g/dL Normal 3.5-5.0 [facility] Comment on above: Performed By: #### L IPD2, HEMDF, TSH5, CMP3, HA1C2 #### [facility] [address] [place] [address] Comprehensive Metabolic Pane denny 05-12-2020 Albumin [Mass/Vol] 4.4 g/dL 3.5 - 5 g/dL [place] ALP [Catalytic activity/Vol] 104 U/L 38 - 126 U/L [place] ALT [Catalytic activity/Vol] 17 U/L 0 - 34 U/L [place] Comment on above: The ALT test is perf ormed by an updated assay method. Please note that the reference intervals have been changed and are now sex specific. Anion gap [Moles/Vol] 9 mmol/L [place], [place] AST [Catalytic activity/Vol] 20 U/L 15 - 46 U/L [place] Bilirubin Ql (U) 1.0 mg/dL 0.2 - 1.3 mg/dL [place] Calcium [Mass/Vol] 10.5 mg/dL High 8.4 - 10. 4 mg/dL [place] Chloride [Moles/Vol] 105 mmol/L 98 - 10 7 mmol/L [place] CO2 [Moles/Vol] 25 mmol/L 22 - 30 mmol/L [place] Creatinine [Mass/Vol] 0.59 mg/dL 0.52 - 1.25 mg/dL [place] EGFR IF NonAfrican Cypriot 83.9 mL/min >60 [place] Comment on above: KDIGO guidelines pro [...] MDRD (S/P/Bld) [Vol rate/Area] mL/min/{1.73_m2} >60 mL/min [place] Glucose [Mass/Vol] 146 mg/dL High 70 - 100 mg/dL [place] Potassium [Moles/Vol] 4.1 mmol/L 3.5 - 5.1 mmol/L [place] Protein [Mass/Vol] 7.1 g/dL 6.3 - 8.2 g/dL [place] Sodium [Moles/Vol] 139 mmol/L 135 - 145 mmol/L [place] Urea nitrogen [Mass/Vol] 20 mg/dL 7 - 20 mg/d L [place] Hemoglobin A1Con 05-12-2020 HbA1c (Bld) [Mass fraction] 6.7 % High 4.0-6.0 [facility] Comment on above: Result Comment: --Hg bA1C levels may not be accurate in patients who have renal disease, received recent blood transfusions, are anemic, or who have dyshemoglobinemia. Performed By: #### L IPD2, HEMDF, TSH5, CMP3, HA1C2 #### [facility] [address] [place] [address] HbA1c (Bld) [Mass fraction] 146 mg/dL Normal [facility] Comment on above: Performed By: #### L IPD2, HEMDF, TSH5, CMP3, HA1C2 #### [facility] [address] [place] [address] eAG 146 mg/dL [place] HbA1c (Bld) [Mass fraction] 6.7 % High 4 - 6 % [place] Comment on above: --HgbA1C levels may not be accurate in patients who have renal disease, received recent blood transfusions, are anemic, or who have dyshemoglobinemia. Interpretation and review of laboratory results Abnormal [place] Test Performed by [facility], [address] , [address] Hemogram w/ Autodiffon 05-12 Abs Baso Cnt 0.1 10*3/uL Normal 0.0-0.2 [facility] Comment on above: Performed By: #### L IPD2, HEMDF, TSH5, CMP3, HA1C2 #### [facility] [address] [place] [address] Abs Neutrophile Cnt 4.8 10*3/uL Normal 1.8-7.0 [facility] Comment on above: Performed By: #### L IPD2, HEMDF, TSH5, CMP3, HA1C2 #### [facility] [address] [place] [address] Basophils/100 WBC (Bld) 0.9 % Normal 0.0-2.0 [facility] Comment on above: Performed By: #### L IPD2, HEMDF, TSH5, CMP3, HA1C2 #### [facility] [address] [place] [address] Eosinophils (Bld) [#/Vol] 0.2 10*3/uL Normal 0.0-0.5 [facility] Comment on above: Performed By: #### L IPD2, HEMDF, TSH5, CMP3, HA1C2 #### [facility] [address] [place] [address] Eosinophils/100 WBC (Bld) 2.5 % Normal 1.0-6.0 [facility] Comment on above: Performed By: #### L IPD2, HEMDF, TSH5, CMP3, HA1C2 #### [facility] [address] [place] [address] Erythrocyte distribution width (RBC) [Ratio] 12.9 % Normal 11.5-14.5 [facility] Comment on above: Performed By: #### L IPD2, HEMDF, TSH5, CMP3, HA1C2 #### [facility] [address] [place] [address] Granulocytes/100 WBC (Bld) 52.8 % Normal 40.0-80.0 [facility] Comment on above: Performed By: #### L IPD2, HEMDF, TSH5, CMP3, HA1C2 #### [facility] [address] [place] [address] Hematocrit (Bld) [Volume fraction] 46.8 % Normal 35.0-47.0 [facility] Comment on above: Performed By: #### L IPD2, HEMDF, TSH5, CMP3, HA1C2 #### [facility] [address] [place] [address] Hemoglobin (Bld) [Mass/Vol] 16.2 g/dL High 11.7-16.0 [facility] Comment on above: Performed By: #### L IPD2, HEMDF, TSH5, CMP3, HA1C2 #### [facility] [address] [place] [address] Lymphocytes (Bld) [#/Vol] 3.4 10*3/uL Normal 1.0-4.3 [facility] Comment on above: Performed By: #### L IPD2, HEMDF, TSH5, CMP3, HA1C2 #### [facility] [address] [place] [address] Lymphocytes/100 WBC (Bld) 36.9 % Normal 20.0-40.0 [facility] Comment on above: Performed By: #### L IPD2, HEMDF, TSH5, CMP3, HA1C2 #### [facility] [address] [place] [address] MCH (RBC) [Entitic mass] 31.9 pg Normal 26.0-34.0 [facility] Comment on above: Performed By: #### L IPD2, HEMDF, TSH5, CMP3, HA1C2 #### [facility] [address] [place] [address] MCHC (RBC) [Mass/Vol] 34.7 % Normal 32.0-36.0 [facility] Comment on above: Performed By: #### L IPD2, HEMDF, TSH5, CMP3, HA1C2 #### [facility] [address] [place] [address] MCV (RBC) [Entitic vol] 91.8 fL Normal 79.0-98.0 [facility] Comment on above: Performed By: #### L IPD2, HEMDF, TSH5, CMP3, HA1C2 #### [facility] [address] [place] [address] Monocytes (Bld) [#/Vol] 0.6 10*3/uL Normal 0.0-0.8 [facility] Comment on above: Performed By: #### L IPD2, HEMDF, TSH5, CMP3, HA1C2 #### [facility] [address] [place] [address] Monocytes/100 WBC (Bld) 6.9 % Normal 2.0-10.0 [facility] Comment on above: Performed By: #### L IPD2, HEMDF, TSH5, CMP3, HA1C2 #### [facility] [address] [place] [address] Platelet mean volume (Bld) [Entitic vol] 7.7 fL Normal 7.4-10.4 [facility] Comment on above: Performed By: #### L IPD2, HEMDF, TSH5, CMP3, HA1C2 #### [facility] [address] [place] [address] Platelets (Bld) [#/Vol] 298 10*3/uL Normal 140-440 [facility] Comment on above: Performed By: #### L IPD2, HEMDF, TSH5, CMP3, HA1C2 #### [facility] [address] [place] [address] RBC (Bld) [#/Vol] 5.10 10*6/uL Normal 3.80-5.20 [facility] Comment on above: Performed By: #### L IPD2, HEMDF, TSH5, CMP3, HA1C2 #### [facility] [address] [place] [address] WBC (Bld) [#/Vol] 9.1 10*3/uL Normal 3.6-10.7 [facility] Comment on above: Performed By: #### L IPD2, HEMDF, TSH5, CMP3, HA1C2 #### [facility] [address] [place] [address] Lipid Panelon 05-12-2020 Cholesterol in HDL [Mass/Vol] 54 mg/dL Normal 40-60 [facility] Comment on above: Performed By: #### L IPD2, HEMDF, TSH5, CMP3, HA1C2 #### [facility] [address] [place] [address] Cholesterol.total/Choles terol in HDL [Mass ratio] 5 Normal [facility] Comment on above: Result Comment: Ref Range: < 3 Low Risk for CHD 3-6 Mod Risk for CHD > 6 High Risk for CHD Performed By: #### L IPD2, HEMDF, TSH5, CMP3, HA1C2 #### [facility] [address] [place] [address] Protein [Mass/Vol] 151 mg/dL Abnormal <100 [facility] Comment on above: Performed By: #### L IPD2, HEMDF, TSH5, CMP3, HA1C2 #### [facility] [address] [place] [address] Triglyceride [Mass/Vol] 194 mg/dL Abnormal <150 [facility] Comment on above: Performed By: #### L IPD2, HEMDF, TSH5, CMP3, HA1C2 #### [facility] [address] [place] [address] Cholesterol [Mass/Vol] 244 mg/dL Abnormal < 200 [facility] Comment on above: Performed By: #### L IPD2, HEMDF, TSH5, CMP3, HA1C2 #### [facility] [address] [place] [address] Cholesterol [Mass/Vol] 244 mg/dL Abnormal <200 [place] Cholesterol in HDL [Mass/Vol] 54 mg/dL 40 - 60 mg/dL [place] Cholesterol in LDL [Mass/Vol] 151 mg/dL Abnormal <100 [place] Cholesterol.total/Choles terol in HDL [Mass ratio] 5 {ratio} [place] Comment on above: Ref Range: < 3 Low Risk for CHD 3-6 Mod Risk for CHD > 6 High Risk for CHD Triglyceride [Mass/Vol] 194 mg/dL Abnormal <150 M [facility] Otheron 05-12-2020 Interpretation and review of laboratory results Abnormal [place] Test Performed by [facility], [address] , [address] TSH without Reflexon 020 Interpretation and review of laboratory results Abnormal [place] TSH Qn 7.501 u[IU]/mL High 0.465 - 4.68 u[IU]/mL [place] Test Performed by [facility], [address] , [place] [address] [facility] [place], [place] Thyroid Stim. Hormoneon 10-0 Thyroid Stim. Hormone 7.501 u[IU]/mL High 0.465-4.68 0 [facility] Comment on above: Performed By: #### L IPD2, HEMDF, TSH5, CMP3, HA1C2 #### [facility] [address] [place] [address] Glucose,Bedsideon 04-30-2020 Glucose [Mass/Vol] 131 mg/dL High 70-100 [facility] Comment on above: Result Comment: Test performed by glucose meter. Results may be 10%-15% lower than serum/plasma values. (CLIA ID [id number]) Performed By: #### L IPD2, HEMDF, TSH5, CMP3, HA1C2 #### [facility] [address] [place] [address] Glucose [Mass/Vol] 137 mg/dL High 70-100 [facility] Comment on above: Result Comment: Test performed by glucose meter. Results may be 10%-15% lower than serum/plasma values. (CLIA ID [id number]) Performed By: #### B GLU #### [facility] [address] [place] [address] [id number] 04-30-2020 SARS-CoV-2 SARS-CoV-2 --> Status: F Not Detected Expected Result: Not Detected _ Real-time, RT-PCR performed on the [employer] System by the [facility]. Negative results do not preclude SARS-CoV-2 infection and should not be used as the sole basis for treatment or other patient management decisions. This assay was developed by [employer] and distributed under an Emergency Use Authorization (EUA) granted by the FDA for the qualitative detection of SARS-CoV-2 nucleic acid. Results were determined from a pool consisting of specimens from additional patients. This test was modified, and its performance characteristics, showing minimal loss of sensitivity, have been validated by the [facility]. Approval is pending review by the U. S. Food and Drug Administration. If symptoms are severe and persist, testing a new specimen may be warranted. Additionally, IgG testing may be considered for patients more than 7-10 days post onset of symptoms. Expected Result: Not Detected _ Real-time, RT-PCR performed on the [employer] System by the [facility]. Negative results do not preclude SARS-CoV-2 infection and should not be used as the sole basis for treatment or other patient management decisions. This assay was developed by [employer] and [employer] and distributed under an Emergency Use Authorization (EUA) granted by the FDA for the qualitative detection of SARS-CoV-2 nucleic acid. Results were determined from a pool consisting of specimens from additional patients. This test was modified, and its performance characteristics, showing minimal loss of sensitivity, have been validated by the [facility]. Approval is pending review by the U. S. Food and Drug Administration. If symptoms are severe and persist, testing a new specimen may be warranted. Additionally, IgG testing may be considered for patients more than 7-10 days post onset of symptoms. Normal [facility] Comment on above: Order Comment: Speci men Source Comment:Nasopharyngeal Swab Performed By: #### L IPD2, HEMDF, TSH5, CMP3, HA1C2 #### [facility] [address] [place] [address] Basic Metabolic Panelon 04-12 Calcium [Mass/Vol] 9.7 mg/dL Normal 8.4-10.4 [facility] Comment on above: Performed By: #### L IPD2, HEMDF, TSH5, CMP3, HA1C2 #### [facility] [address] [place] [address] Glucose [Mass/Vol] 134 mg/dL High 70-100 [facility] Comment on above: Performed By: #### L IPD2, HEMDF, TSH5, CMP3, HA1C2 #### [facility] [address] [place] [address] Anion gap [Moles/Vol] 7 Normal [facility] Comment on above: Performed By: #### L IPD2, HEMDF, TSH5, CMP3, HA1C2 #### [facility] [address] [place] [address] CO2 [Moles/Vol] 26 mmol/L Normal 22-30 [facility] Comment on above: Performed By: #### L IPD2, HEMDF, TSH5, CMP3, HA1C2 #### [facility] [address] [place] [address] Creatinine [Mass/Vol] 0.48 mg/dL Low 0.52-1.25 [facility] Comment on above: Performed By: #### L IPD2, HEMDF, TSH5, CMP3, HA1C2 #### [facility] [address] [place] [address] GFR/1.73 sq M predicted among blacks MDRD (S/P/Bld) [Vol rate/Area] mL/min/{1.73_m2} Normal >60 [facility] Comment on above: Performed By: #### L IPD2, HEMDF, TSH5, CMP3, HA1C2 #### [facility] [address] [place] [address] GFR/1.73 sq M predicted among non-blacks MDRD (S/P/Bld) [Vol rate/Area] 89.8 mL/min/{1.73_m2} Normal >60 [facility] Comment on above: Result Comment: KDIG [...] L IPD2, HEMDF, TSH5, CMP3, HA1C2 #### [facility] [address] [place] [address] Urea nitrogen [Mass/Vol] 16 mg/dL Normal 7-20 [facility] Comment on above: Performed By: #### L IPD2, HEMDF, TSH5, CMP3, HA1C2 #### [facility] [address] [place] [address] Chloride [Moles/Vol] 108 mmol/L High 98-107 [facility] Comment on above: Performed By: #### L IPD2, HEMDF, TSH5, CMP3, HA1C2 #### [facility] [address] [place] [address] Potassium [Moles/Vol] 3.8 mmol/L Normal 3.5-5.1 [facility] Comment on above: Performed By: #### L IPD2, HEMDF, TSH5, CMP3, HA1C2 #### [facility] [address] [place] [address] Sodium [Moles/Vol] 141 mmol/L Normal 135-145 [facility] Comment on above: Performed By: #### L IPD2, HEMDF, TSH5, CMP3, HA1C2 #### [facility] [address] [place] [address] Glucose,Bedsideon 04-29-2020 Glucose [Mass/Vol] 250 mg/dL High 70-100 [facility] Comment on above: Result Comment: Test performed by glucose meter. Results may be 10%-15% lower than serum/plasma values. (CLIA ID [id number]) Performed By: #### B GLU #### [facility] [address] [place] [address] Glucose [Mass/Vol] 133 mg/dL High 70-100 [facility] Comment on above: Result Comment: Test performed by glucose meter. Results may be 10%-15% lower than serum/plasma values. (CLIA ID [id number]) Performed By: #### L IPD2, HEMDF, TSH5, CMP3, HA1C2 #### [facility] [address] [place] [address] Glucose [Mass/Vol] 136 mg/dL High 70-100 [facility] Comment on above: Result Comment: Test performed by glucose meter. Results may be 10%-15% lower than serum/plasma values. (CLIA ID [id number]) Performed By: #### L IPD2, HEMDF, TSH5, CMP3, HA1C2 #### [facility] [address] [place] [address] Glucose [Mass/Vol] 154 mg/dL High 70-100 [facility] Comment on above: Result Comment: Test performed by glucose meter. Results may be 10%-15% lower than serum/plasma values. (CLIA ID [id number]) Performed By: #### L IPD2, HEMDF, TSH5, CMP3, HA1C2 #### [facility] [address] [place] [address] Hemogramon 04-29-2020 Erythrocyte distribution width (RBC) [Ratio] 13.1 % Normal 11.5-14.5 [facility] Comment on above: Performed By: #### L IPD2, HEMDF, TSH5, CMP3, HA1C2 #### [facility] [address] [place] [address] Hematocrit (Bld) [Volume fraction] 43.7 % Normal 35.0-47.0 [facility] Comment on above: Performed By: #### L IPD2, HEMDF, TSH5, CMP3, HA1C2 #### [facility] [address] [place] [address] Hemoglobin (Bld) [Mass/Vol] 14.3 g/dL Normal 11.7-16.0 [facility] Comment on above: Performed By: #### L IPD2, HEMDF, TSH5, CMP3, HA1C2 #### [facility] [address] [place] [address] MCH (RBC) [Entitic mass] 30.5 pg Normal 26.0-34.0 [facility] Comment on above: Performed By: #### L IPD2, HEMDF, TSH5, CMP3, HA1C2 #### [facility] [address] [place] [address] MCHC (RBC) [Mass/Vol] 32.8 % Normal 32.0-36.0 [facility] Comment on above: Performed By: #### L IPD2, HEMDF, TSH5, CMP3, HA1C2 #### [facility] [address] [place] [address] MCV (RBC) [Entitic vol] 92.9 fL Normal 79.0-98.0 [facility] Comment on above: Performed By: #### L IPD2, HEMDF, TSH5, CMP3, HA1C2 #### [facility] [address] [place] [address] Platelet mean volume (Bld) [Entitic vol] 7.4 fL Normal 7.4-10.4 [facility] Comment on above: Performed By: #### L IPD2, HEMDF, TSH5, CMP3, HA1C2 #### [facility] [address] [place] [address] Platelets (Bld) [#/Vol] 249 10*3/uL Normal 140-440 [facility] Comment on above: Performed By: #### L IPD2, HEMDF, TSH5, CMP3, HA1C2 #### [facility] [address] [place] [address] RBC (Bld) [#/Vol] 4.70 10*6/uL Normal 3.80-5.20 [facility] Comment on above: Performed By: #### L IPD2, HEMDF, TSH5, CMP3, HA1C2 #### [facility] [address] [place] [address] WBC (Bld) [#/Vol] 8.6 10*3/uL Normal 3.6-10.7 [facility] Comment on above: Performed By: #### L IPD2, HEMDF, TSH5, CMP3, HA1C2 #### [facility] [address] [place] [address] CKon 04-28-2020 CK [Catalytic activity/Vol] 62 U/L Normal 30-170 [facility] Comment on above: Performed By: #### L IPD2, HEMDF, TSH5, CMP3, HA1C2 #### [facility] [address] [place] [address] CTA Head/Neck w/ + w/o contr yony 04-28-2020 CTA Head/Neck w/ + w/o contrast Patient Name: RAUDEL AHUMADA CT Exam Date/Time 04/28/2020 00:51:25 EDT Exam CTA Head/Neck w/ + w/o contrast Ordering Physician GREGORIO KONG Accession Number [id number] CPT4 Codes Q9967 (CT ISOVUE [id number]), [address]30 (), 92620 () Reason For Exam also read out [...] Transcribed Date and Time: 04/28/2020 2:35 Normal [facility] Complete Urinalysison 2019 Bacteria LM.HPF (Urine sed) [#/Area] Moderate (6-50) Abnormal Negative [facility] Comment on above: Result Comment: . Performed By: #### B GLU #### [facility] [address] [place] [address] RBC LM.HPF (Urine sed) [#/Area] Negative Normal 0-2 [facility] Comment on above: Result Comment: . Performed By: #### B GLU #### [facility] [address] [facility] [place] [address] Squamous Epithelial 3 - 5 Normal 3-5 [facility] Comment on above: Result Comment: . Performed By: #### B GLU #### [facility] [address] [facility] [place] [address] VOLUME, URINE 12 ml Normal [facility] Comment on above: Result Comment: . Performed By: #### B GLU #### [facility] [address] [facility] [place] [address] WBC LM.HPF (Urine sed) [#/Area] 6 - 10 Abnormal 0-5 [facility] Comment on above: Result Comment: . Performed By: #### B GLU #### [facility] [address] [place] [address] Appearance (U) Clear Normal Clear [facility] Comment on above: Result Comment: . Performed By: #### B GLU #### [facility] [address] [place] [address] Bilirubin,Urine Negative Normal Negative [facility] Comment on above: Result Comment: . Performed By: #### B GLU #### [facility] [address] [place] [address] Color (U) YELLOW Normal Lt. Yellow [facility] Comment on above: Result Comment: . Performed By: #### B GLU #### [facility] [address] [place] [address] Glucose Ql (U) Normal Normal Normal (<70) [facility] Comment on above: Result Comment: . Performed By: #### B GLU #### [facility] [address] [place] [address] Ketone,Urine Trace Abnormal Negative [facility] Comment on above: Result Comment: . Performed By: #### B GLU #### [facility] [address] [place] [address] Leukocytes,Urine 250 Philipp/uL Abnormal Negative [facility] Comment on above: Result Comment: . Performed By: #### B GLU #### [facility] [address] [place] [address] Nitrites,Urine Negative Normal Negative [facility] Comment on above: Result Comment: . Performed By: #### B GLU #### [facility] [address] [place] [address] Occult Blood,Urine Negative Normal Negative [facility] Comment on above: Result Comment: . Performed By: #### B GLU #### [facility] [address] [place] [address] pH (U) 5.5 Normal 5.0-8.0 [facility] Comment on above: Result Comment: . Performed By: #### B GLU #### [facility] [address] [place] [address] Protein (U) [Mass/Vol] 70 mg/dL Abnormal Negative [facility] Comment on above: Result Comment: . Performed By: #### B GLU #### [facility] [address] [place] [address] Specific [place],Urine 1.028 Normal 1.005 - 1.030 [facility] Comment on above: Result Comment: . Performed By: #### B GLU #### [facility] [address] [place] [address] Urobilinogen,Urine Normal Normal Normal (0-1) [facility] Comment on above: Result Comment: . Performed By: #### B GLU #### [facility] [address] [place] [address] Echo Complete w/wo Contrasto n 04-28-2020 Echo Complete w/wo Contrast Patient Name: RAUDEL AHUMADA Ultrasound Exam Date/Time 04/28/2020 09:01:04 EDT Exam Echo Complete w/wo Contrast Ordering Physician [id number] Accession Number [id number] Reason For Exam syncope Report TRANSTHORACIC ECHOCARDIOGRAM PATIENT: Raudel Ahumada STUDY DATE: 04/28/2020 : 1935 AGE: 84 HT/WT: 157.5 cm (62 124.7 kg in) (274.4 lb) GENDER: F BP: 143 / 63 LOCATION: [facility] PATIENT Inpatient [facility] STATUS: *ORDERING PHYSICIAN: * Gregorio Sheehan *FELLOW: * Monika De La Torre *READING PHYSICIAN: Mine Doty *THREAD LASTER: Mine Madrigal DO, FSVM, [facility] RDCS, AE INDICATIONS: SYNCOPE. CONCLUSIONS SUMMARY: [...] Electronically signed by Soren Madrigal DO, FS, [facility] 04/28/2020 11:33 Prior Signatures: Final Dictated: 04/28/2020 11:33 am Dictating Physician: DO MADRIGAL JOSEPH Signed Date and Time: 04/28/2020 11:33 am Signed by: DO MADRIGAL JOSEPH Normal [facility] Glucose,Bedsideon 04-28-2020 Glucose [Mass/Vol] 187 mg/dL High 70-100 [facility] Comment on above: Result Comment: Test performed by glucose meter. Results may be 10%-15% lower than serum/plasma values. (CLIA ID [id number]) Performed By: #### L IPD2, HEMDF, TSH5, CMP3, HA1C2 #### [facility] [address] [place] [address] Glucose [Mass/Vol] 147 mg/dL High 70-100 [facility] Comment on above: Result Comment: Test performed by glucose meter. Results may be 10%-15% lower than serum/plasma values. (CLIA ID [id number]) Performed By: #### L IPD2, HEMDF, TSH5, CMP3, HA1C2 #### [facility] [address] [place] [address] Glucose [Mass/Vol] 189 mg/dL High 70-100 [facility] Comment on above: Result Comment: Test performed by glucose meter. Results may be 10%-15% lower than serum/plasma values. (CLIA ID [id number]) Performed By: #### L IPD2, HEMDF, TSH5, CMP3, HA1C2 #### [facility] [address] [place] [address] Glucose [Mass/Vol] 165 mg/dL High 70-100 [facility] Comment on above: Result Comment: Test performed by glucose meter. Results may be 10%-15% lower than serum/plasma values. (CLIA ID [id number]) Performed By: #### L IPD2, HEMDF, TSH5, CMP3, HA1C2 #### [facility] [address] [place] [address] Glucose [Mass/Vol] 184 mg/dL High 70-100 [facility] Comment on above: Result Comment: Test performed by glucose meter. Results may be 10%-15% lower than serum/plasma values. (CLIA ID [id number]) Performed By: #### L IPD2, HEMDF, TSH5, CMP3, HA1C2 #### [facility] [address] [place] [address] Lipid Panelon 04-28-2020 Cholesterol in HDL [Mass/Vol] 38 mg/dL Low 40-60 [facility] Comment on above: Performed By: #### L IPD2, HEMDF, TSH5, CMP3, HA1C2 #### [facility] [address] [place] [address] Cholesterol.total/Choles terol in HDL [Mass ratio] 5 Normal [facility] Comment on above: Result Comment: Ref Range: < 3 Low Risk for CHD 3-6 Mod Risk for CHD > 6 High Risk for CHD Performed By: #### L IPD2, HEMDF, TSH5, CMP3, HA1C2 #### [facility] [address] [place] [address] Protein [Mass/Vol] 136 mg/dL Abnormal <100 [facility] Comment on above: Performed By: #### L IPD2, HEMDF, TSH5, CMP3, HA1C2 #### [facility] [address] [place] [address] Cholesterol [Mass/Vol] 203 mg/dL Abnormal < 200 [facility] Comment on above: Performed By: #### L IPD2, HEMDF, TSH5, CMP3, HA1C2 #### [facility] [address] [place] [address] Triglyceride [Mass/Vol] 143 mg/dL Normal <150 [facility] Comment on above: Performed By: #### L IPD2, HEMDF, TSH5, CMP3, HA1C2 #### [facility] [address] [place] [address] MRI Brain w/o Contraston MRI Brain w/o Contrast Patient Name: RAUDEL AHUMADA MRI Exam Date/Time 04/28/2020 11:31:44 EDT Exam MRI Brain w/o Contrast Ordering Physician GREGORIO KONG Accession Number [id number] CPT4 Codes 83375 () Reason For Exam syncope x2 Report [...] Transcribed Date and Time: 04/28/2020 12:37 Normal [facility] Troponin Ion 04-28-2020 Troponin I.cardiac [Mass/Vol] 0.018 ng/mL Normal 0.000-0.034 [facility] Comment on above: Result Comment: . Performed By: #### L IPD2, HEMDF, TSH5, CMP3, HA1C2 #### [facility] [address] [place] [address] CR Chest Portableon 04-27-20 20 CR Chest Portable Patient Name: RAUDEL AHUMADA Diagnostic Radiology Exam Date/Time 04/27/2020 21:35:51 EDT Exam CR Chest Portable Ordering Physician HERB HILLMAN Accession Number [id number] CPT4 Codes 44900 () Reason For Exam syncvope Report PORTABLE [...] No acute process. Report Dictated on Workstation: [facility] Final Dictating Physician: DO LLOYD ALFRED Signed Date and Time: 04/27/2020 9:41 pm Signed by: DO LLOYD ALFRED Transcribed Date and Time: 04/27/2020 9:42 Normal [facility] Comp Metabolic Panelon 04-27 ALP [Catalytic activity/Vol] 113 U/L Normal 38-126 [facility] Comment on above: Performed By: #### B GLU #### [facility] [address] [place] [address] ALT [Catalytic activity/Vol] 18 U/L Normal 0-34 [facility] Comment on above: Result Comment: The ALT test is performed by an updated assay method. Please note that the reference intervals have been changed and are now sex specific. Performed By: #### B GLU #### [facility] [address] [place] [address] AST [Catalytic activity/Vol] 28 U/L Normal 15-46 [facility] Comment on above: Performed By: #### B GLU #### [facility] [address] [place] [address] Calcium [Mass/Vol] 10.2 mg/dL Normal 8.4-10.4 [facility] Comment on above: Performed By: #### B GLU #### [facility] [address] [place] [address] Glucose [Mass/Vol] 138 mg/dL High 70-100 [facility] Comment on above: Performed By: #### B GLU #### [facility] [address] [place] [address] Protein [Mass/Vol] 7.3 g/dL Normal 6.3-8.2 [facility] Comment on above: Performed By: #### B GLU #### [facility] [address] [place] [address] Urea nitrogen [Mass/Vol] 25 mg/dL High 7-20 [facility] Comment on above: Performed By: #### B GLU #### [facility] [address] [place] [address] Anion gap [Moles/Vol] 8 Normal [facility] Comment on above: Performed By: #### B GLU #### [facility] [address] [place] [address] Bilirubin [Mass/Vol] 0.8 mg/dL Normal 0.2-1.3 [facility] Comment on above: Performed By: #### B GLU #### [facility] [address] [place] [address] CO2 [Moles/Vol] 26 mmol/L Normal 22-30 [facility] Comment on above: Performed By: #### B GLU #### [facility] [address] [place] [address] Creatinine [Mass/Vol] 0.51 mg/dL Low 0.52-1.25 [facility] Comment on above: Performed By: #### B GLU #### [facility] [address] [place] [address] GFR/1.73 sq M predicted among blacks MDRD (S/P/Bld) [Vol rate/Area] mL/min/{1.73_m2} Normal >60 [facility] Comment on above: Performed By: #### B GLU #### [facility] [address] [place] [address] GFR/1.73 sq M predicted among non-blacks MDRD (S/P/Bld) [Vol rate/Area] 88.0 mL/min/{1.73_m2} Normal >60 [facility] Comment on above: Result Comment: KDIG [...] secretion. Performed By: #### B GLU #### [facility] [address] [place] [address] Albumin [Mass/Vol] 4.2 g/dL Normal 3.5-5.0 [facility] Comment on above: Performed By: #### B GLU #### [facility] [address] [place] [address] Potassium [Moles/Vol] 3.9 mmol/L Normal 3.5-5.1 [facility] Comment on above: Performed By: #### B GLU #### [facility] [address] [place] [address] Chloride [Moles/Vol] 106 mmol/L Normal 98-107 [facility] Comment on above: Performed By: #### B GLU #### [facility] [address] [place] [address] Sodium [Moles/Vol] 140 mmol/L Normal 135-145 [facility] Comment on above: Performed By: #### B GLU #### [facility] [address] [place] [address] ED Provider Noteon 0 ED Provider Note [...] MOUTH EVERY DAY, Disp-90 tablet,R-1Normal !! Handicap [facility] Starting Sat04/09/2019, Disp-1 each, R-0, PrintDX arthritis 5 years !! Handicap [facility] Starting Sat04/08/2019, Disp-1 each, R-0, PrintDX arthritis 5 years B Lzinnzh-Tyqffh-KK (VITAMIN B50 COMPLEX PO) Take by mouthHistorical Med VITAMIN E PO Take by mouth Indications: 2000units dailyHistorical Med Multiple Vitamins-Minerals (MULTIVITAMIN ADULT PO) Take by mouthHistorical Med !! Handicap [facility] Starting Sat12/31/2018, Disp-1 each, R-0, PrintDX Arthritis 5 years [facility] each, R-3, PrintDx E11.9 TEST [...] on phone: None Gets together: None Attends bahai service: None Active member of club or [...] within normal limits Narrative: Test [facility] by [facility], [address] , [place] [address] CBC WITH AUTO DIFFERENTIAL - Abnormal; Notable for the following components: Absolute Neut # 7.1 (*) All other components within normal limits Narrative: Test Performed by [facility], [address] , [place], [place] [address] URINALYSIS - Abnormal; Notable for the following components: Total Protein, Urine 70 (*) Ketones, Urine Trace (*) LEUKOCYTES, UA 250 (*) WBC, UA 6-10 (*) Bacteria, UA Moderate (6-50) (*) All other components within normal limits Narrative: Test Performed by [facility], [address] , [place], [place] [address] LIPID PANEL - Abnormal; Notable for the following components: Cholesterol 203 (*) HDL 38 (*) LDL Cholesterol 136 (*) All other components within normal limits Narrative: Test Performed by [facility], [address] [address] BASIC METABOLIC PANEL - Abnormal; Notable for the following components: Chloride 108 (*) Glucose 134 (*) CREATININE 0.48 (*) All other components within normal limits Narrative: Test Performed by [facility], [address] [place] [address] POCT GLUCOSE - Abnormal; Notable for the following components: POC Glucose 184 (*) All other components within normal limits Narrative: Test Performed by [facility], [address] [place] [address] POCT GLUCOSE - Abnormal; Notable for the following components: POC Glucose 165 (*) All other components within normal limits Narrative: Test Performed by [facility], [address] [place] [address] POCT GLUCOSE - Abnormal; Notable for the following components: POC Glucose 189 (*) All other components within normal limits Narrative: Test Performed by [facility], [address] [place] [address] POCT GLUCOSE - Abnormal; Notable for the following components: POC Glucose 147 (*) All other components within normal limits Narrative: Test Performed by [facility], [address] [place] [address] POCT GLUCOSE - Abnormal; Notable for the following components: POC Glucose 187 (*) All other components within normal limits Narrative: Test Performed by [facility], [address] [place] [address] POCT GLUCOSE - Abnormal; Notable for the following components: POC Glucose 154 (*) All other components within normal limits Narrative: Test Performed by [facility], [address] [place] [address] POCT GLUCOSE - Abnormal; Notable for the following components: POC Glucose 136 (*) All other components within normal limits Narrative: Test Performed by [facility], [address], [place], [place] [address] POCT GLUCOSE - Abnormal; Notable for the following components: POC Glucose 133 (*) All other components within normal limits Narrative: Test Performed by [facility], [address] [place], [place] [address] POCT GLUCOSE - Abnormal; Notable for the following components: POC Glucose 250 (*) All other components within normal limits Narrative: Test Performed by [facility], [address] [place], [place] [address] POCT GLUCOSE - Abnormal; Notable for the following components: POC Glucose 137 (*) All other components within normal limits Narrative: Test Performed by [facility], [address], [place], [place] [address] POCT GLUCOSE - Abnormal; Notable for the following components: POC Glucose 131 (*) All other components within normal limits Narrative: Test Performed by [facility], [address] [place], [place], [place] [address] BRAIN NATRIURETIC PEPTIDE Narrative: Test Performed by [facility], [address] , [place], [place] [address] LIPASE Narrative: Test Performed by [facility], [address] , [place], [place] [address] MAGNESIUM Narrative: Test Performed by [facility], [address] , [place], [place] [address] TROPONIN Narrative: Test Performed by [facility], [address] , [place], [place] [address] CK Narrative: Test Performed by [facility], [address] [place], [place], [place] [address] TROPONIN Narrative: Test Performed by [facility], [address] [place], [place] [address] CBC Narrative: Test Performed by [facility], [address] [place], [place] [address] COVID-19 Narrative: Test Performed by [facility], [address] [place] [address] Specimen Source Comment:Nasopharynge al Swab POCT GLUCOSE [...] No treatment, delayed treatment, observation and referral [place] protocol: Procedure explained and questions answered to [...] method: Pressure wash Skin repair: Repair method: [place] Number of leonid: 8 Approximation: Approximation: Close Post-procedure details: Dressing: Open (no dressing) Patient tolerance of procedure: Tolerated well, no immediate complications FINAL IMPRESSION 1. Syncope and collapse 2. Injury of head, initial encounter 3. Laceration of scalp, initial encounter DISPOSITION/PLAN DISPOSITION Admitted 04/27/2020 10:01:51 PM PATIENT REFERRED TO: Maida Doshi MD [address] [place], [place] [id number] DISCHARGE MEDICATIONS: Discharge Medication List as of [...] [id number] Herb Moreno MD 06/01/20 2038 Normal [facility] Hemogram w/ Autodiffon 04-27 Abs Baso Cnt 0.1 10*3/uL Normal 0.0-0.2 [facility] Comment on above: Performed By: #### B GLU #### [facility] [address] [place] [address] Abs Neutrophile Cnt 7.1 10*3/uL High 1.8-7.0 [facility] Comment on above: Performed By: #### B GLU #### [facility] [address] [place] [address] Basophils/100 WBC (Bld) 1.2 % Normal 0.0-2.0 [facility] Comment on above: Performed By: #### B GLU #### [facility] [address] [place] [address] Eosinophils (Bld) [#/Vol] 0.2 10*3/uL Normal 0.0-0.5 [facility] Comment on above: Performed By: #### B GLU #### [facility] [address] [place] [address] Eosinophils/100 WBC (Bld) 2.4 % Normal 1.0-6.0 [facility] Comment on above: Performed By: #### B GLU #### [facility] [address] [place] [address] Erythrocyte distribution width (RBC) [Ratio] 13.2 % Normal 11.5-14.5 [facility] Comment on above: Performed By: #### B GLU #### [facility] [address] [place] [address] Granulocytes/100 WBC (Bld) 69.0 % Normal 40.0-80.0 [facility] Comment on above: Performed By: #### B GLU #### [facility] [address] [place] [address] Hematocrit (Bld) [Volume fraction] 45.6 % Normal 35.0-47.0 [facility] Comment on above: Performed By: #### B GLU #### [facility] [address] [place] [address] Hemoglobin (Bld) [Mass/Vol] 15.7 g/dL Normal 11.7-16.0 [facility] Comment on above: Performed By: #### B GLU #### [facility] [address] [place] [address] Lymphocytes (Bld) [#/Vol] 2.3 10*3/uL Normal 1.0-4.3 [facility] Comment on above: Performed By: #### B GLU #### [facility] [address] [place] [address] Lymphocytes/100 WBC (Bld) 21.8 % Normal 20.0-40.0 [facility] Comment on above: Performed By: #### B GLU #### [facility] [address] [place] [address] MCH (RBC) [Entitic mass] 31.5 pg Normal 26.0-34.0 [facility] Comment on above: Performed By: #### B GLU #### [facility] [address] [place] [address] MCHC (RBC) [Mass/Vol] 34.4 % Normal 32.0-36.0 [facility] Comment on above: Performed By: #### B GLU #### [facility] [address] [place] [address] MCV (RBC) [Entitic vol] 91.6 fL Normal 79.0-98.0 [facility] Comment on above: Performed By: #### B GLU #### [facility] [address] [place] [address] Monocytes (Bld) [#/Vol] 0.6 10*3/uL Normal 0.0-0.8 [facility] Comment on above: Performed By: #### B GLU #### [facility] [address] [place] [address] Monocytes/100 WBC (Bld) 5.6 % Normal 2.0-10.0 [facility] Comment on above: Performed By: #### B GLU #### [facility] [address] [place] [address] Platelet mean volume (Bld) [Entitic vol] 7.5 fL Normal 7.4-10.4 [facility] Comment on above: Performed By: #### B GLU #### [facility] [address] [place] [address] Platelets (Bld) [#/Vol] 286 10*3/uL Normal 140-440 [facility] Comment on above: Performed By: #### B GLU #### [facility] [address] [place] [address] RBC (Bld) [#/Vol] 4.98 10*6/uL Normal 3.80-5.20 [facility] Comment on above: Performed By: #### B GLU #### [facility] [address] [place] [address] WBC (Bld) [#/Vol] 10.4 10*3/uL Normal 3.6-10.7 [facility] Comment on above: Performed By: #### B GLU #### [facility] [address] [place] [address] Lipaseon 04-27-2020 Lipase [Catalytic activity/Vol] 75 U/L Normal 23-300 [facility] Comment on above: Performed By: #### B GLU #### [facility] [address] [place] [address] Magnesiumon 04-27-2020 Magnesium [Mass/Vol] 1.6 mg/dL Normal 1.6-2.3 [facility] Comment on above: Performed By: #### B GLU #### [facility] [address] [place] [address] NT pro BNPon 04-27-2020 Natriuretic peptide B (Bld) [Mass/Vol] 212 pg/mL Normal 0-450 [facility] Comment on above: Performed By: #### B GLU #### [facility] [address] [place] [address] Troponin Ion 04-27-2020 Troponin I.cardiac [Mass/Vol] ng/mL Normal 0.000-0.034 [facility] Comment on above: Result Comment: . Performed By: #### B GLU #### [facility] [address] [place] [address] CBC Auto Differentialon 01-10 Absolute Baso # 0.1 10*3/uL 0 - 0.2 10*3/uL [place] Absolute Neut # 5.1 10*3/uL 1.8 - 7 10*3/uL [place] Basophils/100 WBC (Bld) 1.2 % 0 - 2 % [place] Eosinophils (Bld) [#/Vol] 0.3 10*3/uL 0 - 0.5 10*3/uL [place] Eosinophils/100 WBC (Bld) 3.7 % 1 - 6 % [place] Erythrocyte distribution width (RBC) [Ratio] 12.9 % 11.5 - 14.5 % [place] Granulocytes/100 WBC (Bld) 54.5 % 40 - 80 % [place] Hematocrit (Bld) [Volume fraction] 42.9 % 35 - 47 % [place] Hemoglobin (Bld) [Mass/Vol] 14.6 g/dL 11.7 - 16 g/dL [place] Lymphocytes (Bld) [#/Vol] 3.2 10*3/uL 1 - 4.3 10*3/uL [place] Lymphocytes/100 WBC (Bld) 33.8 % 20 - 40 % [place] MCH (RBC) [Entitic mass] 31.9 pg 26 - 34 pg [place] MCHC (RBC) [Mass/Vol] 34.2 % 32 - 36 % [place] MCV (RBC) [Entitic vol] 93.3 fL 79 - 98 fL [place] Monocytes (Bld) [#/Vol] 0.6 10*3/uL 0 - 0.8 10*3/uL [place] Monocytes/100 WBC (Bld) 6.8 % 2 - 10 % [place] Platelet mean volume (Bld) [Entitic vol] 7.7 fL 7.4 - 10.4 fL [place] Platelets (Bld) [#/Vol] 318 10*3/uL 140 - 440 10*3/uL [place] RBC (Bld) [#/Vol] 4.59 10*6/uL 3.8 - 5.2 10*6/uL [place] WBC (Bld) [#/Vol] 9.4 10*3/uL 3.6 - 10.7 10*3/uL [place] Test [facility] by [facility], [address] , [place], [place] [id number] [place] [address] Comp Metabolic Panelon 01-19 ALP [Catalytic activity/Vol] 97 U/L Normal 38-126 [facility] Comment on above: Performed By: #### L IPD2, HEMDF, CMP3, HA1C2, TSH5 #### [facility] [address] [place] [address] ALT [Catalytic activity/Vol] 20 U/L Normal 0-34 [facility] Comment on above: Result Comment: The ALT test is performed by an updated assay method. Please note that the reference intervals have been changed and are now sex specific. Performed By: #### L IPD2, HEMDF, CMP3, HA1C2, TSH5 #### [facility] [address] [place] [address] Calcium [Mass/Vol] 9.9 mg/dL Normal 8.4-10.4 [facility] Comment on above: Performed By: #### L IPD2, HEMDF, CMP3, HA1C2, TSH5 #### [facility] [address] [place] [address] Glucose [Mass/Vol] 121 mg/dL High 70-100 [facility] Comment on above: Performed By: #### L IPD2, HEMDF, CMP3, HA1C2, TSH5 #### [facility] [address] [place] [address] Anion gap [Moles/Vol] 10 Normal [facility] Comment on above: Performed By: #### L IPD2, HEMDF, CMP3, HA1C2, TSH5 #### [facility] [address] [place] [address] AST [Catalytic activity/Vol] 24 U/L Normal 15-46 [facility] Comment on above: Performed By: #### L IPD2, HEMDF, CMP3, HA1C2, TSH5 #### [facility] [address] [place] [address] Bilirubin [Mass/Vol] 1.1 mg/dL Normal 0.2-1.3 [facility] Comment on above: Performed By: #### L IPD2, HEMDF, CMP3, HA1C2, TSH5 #### [facility] [address] [place] [address] CO2 [Moles/Vol] 26 mmol/L Normal 22-30 [facility] Comment on above: Performed By: #### L IPD2, HEMDF, CMP3, HA1C2, TSH5 #### [facility] [address] [place] [address] Creatinine [Mass/Vol] 0.69 mg/dL Normal 0.52-1.25 [facility] Comment on above: Performed By: #### L IPD2, HEMDF, CMP3, HA1C2, TSH5 #### [facility] [address] [place] [address] GFR/1.73 sq M predicted among blacks MDRD (S/P/Bld) [Vol rate/Area] mL/min/{1.73_m2} Normal >60 [facility] Comment on above: Performed By: #### L IPD2, HEMDF, CMP3, HA1C2, TSH5 #### [facility] [address] [place] [address] GFR/1.73 sq M predicted among non-blacks MDRD (S/P/Bld) [Vol rate/Area] 79.8 mL/min/{1.73_m2} Normal >60 [facility] Comment on above: Result Comment: KDIG [...] L IPD2, HEMDF, CMP3, HA1C2, TSH5 #### [facility] [address] [place] [address] Protein [Mass/Vol] 7.1 g/dL Normal 6.3-8.2 [facility] Comment on above: Performed By: #### L IPD2, HEMDF, CMP3, HA1C2, TSH5 #### [facility] [address] [place] [address] Urea nitrogen [Mass/Vol] 20 mg/dL Normal 7-20 [facility] Comment on above: Performed By: #### L IPD2, HEMDF, CMP3, HA1C2, TSH5 #### [facility] [address] [place] [address] Chloride [Moles/Vol] 104 mmol/L Normal 98-107 [facility] Comment on above: Performed By: #### L IPD2, HEMDF, CMP3, HA1C2, TSH5 #### [facility] [address] [place] [address] Potassium [Moles/Vol] 4.2 mmol/L Normal 3.5-5.1 [facility] Comment on above: Performed By: #### L IPD2, HEMDF, CMP3, HA1C2, TSH5 #### [facility] [address] [place] [address] Sodium [Moles/Vol] 140 mmol/L Normal 135-145 [facility] Comment on above: Performed By: #### L IPD2, HEMDF, CMP3, HA1C2, TSH5 #### [facility] [address] [place] [address] Albumin [Mass/Vol] 4.1 g/dL Normal 3.5-5.0 [facility] Comment on above: Performed By: #### L IPD2, HEMDF, CMP3, HA1C2, TSH5 #### [facility] [address] [place] [address] Comprehensive Metabolic Pane denny 01-20-2020 Albumin [Mass/Vol] 4.1 g/dL 3.5 - 5 g/dL [place], [place] ALP [Catalytic activity/Vol] 97 U/L 38 - 126 U/L [place] ALT [Catalytic activity/Vol] 20 U/L 0 - 34 U/L [place] Comment on above: The ALT test is perf ormed by an updated assay method. Please note that the reference intervals have been changed and are now sex specific. Anion gap [Moles/Vol] 10 mmol/L [place], [place] AST [Catalytic activity/Vol] 24 U/L 15 - 46 U/L [place] Bilirubin Ql (U) 1.1 mg/dL 0.2 - 1.3 mg/dL [place] Calcium [Mass/Vol] 9.9 mg/dL 8.4 - 10. 4 mg/dL [place] Chloride [Moles/Vol] 104 mmol/L 98 - 10 7 mmol/L [place] CO2 [Moles/Vol] 26 mmol/L 22 - 30 mmol/L [place] Creatinine [Mass/Vol] 0.69 mg/dL 0.52 - 1.25 mg/dL [place] EGFR IF NonAfrican Cypriot 79.8 mL/min >60 [place] Comment on above: KDIGO guidelines pro [...] MDRD (S/P/Bld) [Vol rate/Area] mL/min/{1.73_m2} >60 mL/min [place] Glucose [Mass/Vol] 121 mg/dL High 70 - 100 mg/dL [place] Potassium [Moles/Vol] 4.2 mmol/L 3.5 - 5.1 mmol/L [place] Protein [Mass/Vol] 7.1 g/dL 6.3 - 8.2 g/dL [place] Sodium [Moles/Vol] 140 mmol/L 135 - 145 mmol/L [place] Urea nitrogen [Mass/Vol] 20 mg/dL 7 - 20 mg/d L [place] Hemoglobin A1Con 01-20-2020 HbA1c (Bld) [Mass fraction] 7.6 % High 4.0-5.7 [facility] Comment on above: Result Comment: --Hg bA1C levels may not be accurate in patients who have renal disease, received recent blood transfusions, are anemic, or who have dyshemoglobinemia. Performed By: #### L IPD2, HEMDF, CMP3, HA1C2, TSH5 #### [facility] [address] [place] [address] HbA1c (Bld) [Mass fraction] 171 mg/dL Normal [facility] Comment on above: Performed By: #### L IPD2, HEMDF, CMP3, HA1C2, TSH5 #### [facility] [address] [place] [address] eAG 171 mg/dL [place] HbA1c (Bld) [Mass fraction] 7.6 % High 4 - 5.7 % [place] Comment on above: --HgbA1C levels may not be accurate in patients who have renal disease, received recent blood transfusions, are anemic, or who have dyshemoglobinemia. Interpretation and review of laboratory results Abnormal [place] Test Performed by [facility], [address] , [place], [place] [address] [place] Hemogram w/ Autodiffon 01-19 Abs Baso Cnt 0.1 10*3/uL Normal 0.0-0.2 [facility] Comment on above: Performed By: #### L IPD2, HEMDF, CMP3, HA1C2, TSH5 #### [facility] [address] [place] [address] Abs Neutrophile Cnt 5.1 10*3/uL Normal 1.8-7.0 [facility] Comment on above: Performed By: #### L IPD2, HEMDF, CMP3, HA1C2, TSH5 #### [facility] [address] [place] [address] Basophils/100 WBC (Bld) 1.2 % Normal 0.0-2.0 [facility] Comment on above: Performed By: #### L IPD2, HEMDF, CMP3, HA1C2, TSH5 #### [facility] [address] [place] [address] Eosinophils (Bld) [#/Vol] 0.3 10*3/uL Normal 0.0-0.5 [facility] Comment on above: Performed By: #### L IPD2, HEMDF, CMP3, HA1C2, TSH5 #### [facility] [address] [place] [address] Eosinophils/100 WBC (Bld) 3.7 % Normal 1.0-6.0 [facility] Comment on above: Performed By: #### L IPD2, HEMDF, CMP3, HA1C2, TSH5 #### [facility] [address] [place] [address] Erythrocyte distribution width (RBC) [Ratio] 12.9 % Normal 11.5-14.5 [facility] Comment on above: Performed By: #### L IPD2, HEMDF, CMP3, HA1C2, TSH5 #### [facility] [address] [place] [address] Granulocytes/100 WBC (Bld) 54.5 % Normal 40.0-80.0 [facility] Comment on above: Performed By: #### L IPD2, HEMDF, CMP3, HA1C2, TSH5 #### [facility] [address] [place] [address] Hematocrit (Bld) [Volume fraction] 42.9 % Normal 35.0-47.0 [facility] Comment on above: Performed By: #### L IPD2, HEMDF, CMP3, HA1C2, TSH5 #### [facility] [address] [place] [address] Hemoglobin (Bld) [Mass/Vol] 14.6 g/dL Normal 11.7-16.0 [facility] Comment on above: Performed By: #### L IPD2, HEMDF, CMP3, HA1C2, TSH5 #### [facility] [address] [place] [address] Lymphocytes (Bld) [#/Vol] 3.2 10*3/uL Normal 1.0-4.3 [facility] Comment on above: Performed By: #### L IPD2, HEMDF, CMP3, HA1C2, TSH5 #### [facility] [address] [place] [address] Lymphocytes/100 WBC (Bld) 33.8 % Normal 20.0-40.0 [facility] Comment on above: Performed By: #### L IPD2, HEMDF, CMP3, HA1C2, TSH5 #### [facility] [address] [place] [address] MCH (RBC) [Entitic mass] 31.9 pg Normal 26.0-34.0 [facility] Comment on above: Performed By: #### L IPD2, HEMDF, CMP3, HA1C2, TSH5 #### [facility] [address] [place] [address] MCHC (RBC) [Mass/Vol] 34.2 % Normal 32.0-36.0 [facility] Comment on above: Performed By: #### L IPD2, HEMDF, CMP3, HA1C2, TSH5 #### [facility] [address] [place] [address] MCV (RBC) [Entitic vol] 93.3 fL Normal 79.0-98.0 [facility] Comment on above: Performed By: #### L IPD2, HEMDF, CMP3, HA1C2, TSH5 #### [facility] [address] [place] [address] Monocytes (Bld) [#/Vol] 0.6 10*3/uL Normal 0.0-0.8 [facility] Comment on above: Performed By: #### L IPD2, HEMDF, CMP3, HA1C2, TSH5 #### [facility] [address] [place] [address] Monocytes/100 WBC (Bld) 6.8 % Normal 2.0-10.0 [facility] Comment on above: Performed By: #### L IPD2, HEMDF, CMP3, HA1C2, TSH5 #### [facility] [address] [place] [address] Platelet mean volume (Bld) [Entitic vol] 7.7 fL Normal 7.4-10.4 [facility] Comment on above: Performed By: #### L IPD2, HEMDF, CMP3, HA1C2, TSH5 #### [facility] [address] [place] [address] Platelets (Bld) [#/Vol] 318 10*3/uL Normal 140-440 [facility] Comment on above: Performed By: #### L IPD2, HEMDF, CMP3, HA1C2, TSH5 #### [facility] [address] [place] [address] RBC (Bld) [#/Vol] 4.59 10*6/uL Normal 3.80-5.20 [facility] Comment on above: Performed By: #### L IPD2, HEMDF, CMP3, HA1C2, TSH5 #### [facility] [address] [place] [address] WBC (Bld) [#/Vol] 9.4 10*3/uL Normal 3.6-10.7 [facility] Comment on above: Performed By: #### L IPD2, HEMDF, CMP3, HA1C2, TSH5 #### [facility] [address] [place] [address] Lipid Panelon 01-20-2020 Cholesterol in HDL [Mass/Vol] 47 mg/dL Normal 40-60 [facility] Comment on above: Performed By: #### B GLU #### [facility] [address] [place] [address] Cholesterol.total/Choles terol in HDL [Mass ratio] 5 Normal [facility] Comment on above: Result Comment: Ref Range: < 3 Low Risk for CHD 3-6 Mod Risk for CHD > 6 High Risk for CHD Performed By: #### B GLU #### [facility] [address] [place] [address] Protein [Mass/Vol] 156 mg/dL Abnormal <100 [facility] Comment on above: Performed By: #### B GLU #### [facility] [address] [place] [address] Triglyceride [Mass/Vol] 195 mg/dL Abnormal <150 [facility] Comment on above: Performed By: #### B GLU #### [facility] [address] [place] [address] Cholesterol [Mass/Vol] 242 mg/dL Abnormal < 200 [facility] Comment on above: Performed By: #### B GLU #### [facility] [address] [place] [address] Cholesterol [Mass/Vol] 242 mg/dL Abnormal <200 [place] Cholesterol in HDL [Mass/Vol] 47 mg/dL 40 - 60 mg/dL [place] Cholesterol in LDL [Mass/Vol] 156 mg/dL Abnormal <100 [place] Cholesterol.total/Choles terol in HDL [Mass ratio] 5 {ratio} [place] Comment on above: Ref Range: < 3 Low Risk for CHD 3-6 Mod Risk for CHD > 6 High Risk for CHD Triglyceride [Mass/Vol] 195 mg/dL Abnormal <150 [place] Microalbumin / Creatinine Ur ine Ratioon 01-20-2020 Albumin/Creatinine DL <= 20 mg/L (24H U) [Mass ratio] 18.6 mg/L High 0 - 17 mg/L [place] Comment on above: Microalbumin concent rations <30 are considered normal, 30-300 are considered microalbuminuria (or risk of diabetic nephropathy), and >300 are considered clinical albuminuria (clinical nephropathy). Diabetes Care,27, Supplement 1, I18-41, 2003 Albumin/Creatinine DL <= 20 mg/L (U) [Ratio] 9.2 mg/g 0 - 29.9 mg/g [place] Creatinine (U) [Mass/Vol] 201.3 mg/dL No Range [facility] MARY Interpretation and review of laboratory results Abnormal [facility], [place] Test Performed by [facility], [address] , [address] Microalbumin/Creat Ratioon 0 01-20-2020 Microalb/Creat Ratio 9.2 mg/g Normal 0.0-29.9 [facility] Comment on above: Performed By: #### B GLU #### [facility] [address] [place] [address] Microalbumin, Ur 18.6 mg/L High 0.0-17.0 [facility] Comment on above: Result Comment: Micr oalbumin concentrations <30 are considered normal, 30-300 are considered microalbuminuria (or risk of diabetic nephropathy), and >300 are considered clinical albuminuria (clinical nephropathy). Diabetes Care,27, Supplement 1, D26-88, 2003 Performed By: #### B GLU #### [facility] [address] [place] [address] Creatinine, Ur Random 201.3 mg/dL Normal No Range [facility] Comment on above: Performed By: #### B GLU #### [facility] [address] [place] [address] Otheron 01-20-2020 Interpretation and review of laboratory results Abnormal [facility] MARY Test Performed by [facility], [address] , [address] TSH without Reflexon 020 TSH Qn 1.553 u[IU]/mL 0.465 - 4.68 u[IU]/mL [place] Test Performed by [facility], [address] Thyroid Stim. Hormoneon 01-10 Thyroid Stim. Hormone 1.553 u[IU]/mL Normal 0.465-4.68 0 [facility] Comment on above: Performed By: #### B GLU #### [facility] [address] [place] [address] CT Cervical Spine WO Contras ton 06-05-2019 Patient Name: RAUDEL AHUMADA ---CT--- Exam Date/Time 06/05/2019 20:16:[address] Spine Cervical w/o Contrast Ordering Physician MD ANGEL BETSY Accession Number [id number] CPT4 Codes 33102 () Reason For Exam neck pain Report [...] I Transcribed Date and Time: 06/05/2019 8:22 [facility], [facility] Incoming Radiology Results From [facility] - 06/05/2019 8:22 PM EDT Patient Name: RAUDEL AHUMADA ---CT--- Exam Date/Time 06/05/2019 20:16:[address] Spine Cervical w/o Contrast Ordering Physician MD ANGEL BETSY Accession Number [id number] CPT4 Codes 03692 () Reason For Exam neck pain Report [...] Date and Time: 06/05/2019 8:22 [facility], [place] CT Head WO Contraston 2018 Patient Name: RAUDEL AHUMADA ---CT--- Exam Date/Time 06/05/2019 20:16:[address] Head or Brain w/o Contrast Ordering Physician MD ANGEL BETSY Accession Number [id number] CPT4 Codes 29455 () Reason For Exam fall, hematoma to [...] Date and Time: 06/05/2019 8:16 [facility] [place] [facility] Results From [facility] - 06/05/2019 8:16 PM EDT Patient Name: RAUDEL AHUMADA ---CT--- Exam Date/Time 06/05/2019 20:16:[address] Head or Brain w/o Contrast Ordering Physician MD ANGEL BETSY Accession Number [id number] CPT4 Codes 59444 () Reason For Exam fall, hematoma to [...] I Transcribed Date and Time: 06/05/2019 8:16 [facility] Vital Sign[facility] Date Time Vital Sign Value Performing Clinician Obdulia barnes 05-06-2020 10:36-0400 BP Diastolic 81 mm[Hg] Johnny Stone [facility] [place] 05-06-2020 10:36-0400 BP Systolic 172 mm[Hg] Johnny Stone [facility] , [place] 05-06-2020 10:33-0400 Body Temperature 97.2 [degF] Johnny Stone [facility], [place] 05-06-2020 10:31-0400 BMI (Body Mass Index) 45.71 kg/m2 Johnny Michaud [facility], [place] 05-06-2020 10:31-0400 Body weight 113.4 kg Johnny Stone [place], [place] 05-06-2020 10:31-0400 Pulse (Heart Rate) 65 /min Johnny [place] 05-06-2020 10:31-0400 Pulse Oximetry 93 % Johnny Stone [place], [place] 05-06-2020 10:31-0400 Respiratory Rate 18 /min Johnny Stone [place], [place] 06-05-2019 20:55-0400 BP Diastolic 59 mm[Hg] [place], [place] 06-05-2019 20:55-0400 BP Systolic 146 mm[Hg] [place] 06-05-2019 20:55-0400 Pulse (Heart Rate) 62 /min [place] 06-05-2019 20:55-0400 Pulse Oximetry 96 % [place] 06-05-2019 20:55-0400 Respiratory Rate 16 /min [place] 06-05-2019 19:47-0400 BMI (Body Mass Index) 45.73 kg/m2 [place], [place] 06-05-2019 19:47-0400 Body Temperature 98.6 [degF] [place] 06-05-2019 19:47-0400 Body weight 113.4 kg [place] 06-05-2019 19:47-0400 Height 157.5 cm [place] Encounters Encounter Date Encounter Type Care Provider Facility Start: 06-02-2025 ambulatory Adelfo HERNANDEZ Facil ity:[facility] Start: 05-19-2025 ambulatory Adelfo HERNANDEZ Facil ity:[facility] Start: 05-05-2025 ambulatory Adelfo HERNANDEZ Facil ity:[facility] Start: 03-15-2025 ambulatory Adelfo HERNANDEZ Facil ity:[facility] Start: 01-11-2025 End: 01-11-2025 ambulatory Adelfo HERNANDEZ [facility] Work Phone: Start: 01-11-2025 End: 01-11-2025 Departed Referred Adelfo Dhaliwal [facility] [address] Start: 01-11-2025 End: 01-11-2025 ambulatory Adelfo HERNANDEZ Facility:[facility] Start: 12-23-2024 End: 12-23-2024 [facility] Start: 07-13-2024 End: 07-13-2024 ambulatory Adelfo HERNANDEZ Facility:[facility] Start: 11-11-2023 End: 11-11-2023 ambulatory [facility] Work Phone: Start: 11-11-2023 End: 11-11-2023 Departed Referred [facility] [address] Start: 11-03-[address] [facility] [address] Start: 10-21-2023 End: 10-21-2023 ambulatory [facility] Work Phone: Start: 10-21-2023 End: 10-21-2023 Departed Referred [facility] [address] Start: 07-15-[address] [facility] [address] Start: 07-12-2023 End: 07-12-2023 ambulatory [facility] Work Phone: Start: 07-12-2023 End: 07-12-2023 Departed Referred [facility] [address] Start: 06-10-2023 End: 06-10-2023 ambulatory [facility] Work Phone: Start: 06-10-2023 End: 06-10-2023 Departed Referred [facility] [address] Start: 02-25-2023 End: 02-26-2023 ambulatory PATRICIA VIPIN [facility] Start: 02-25-2023 End: 02-25-2023 Office outpatient new 30 minutes Patricia Harris MD Work Phone: [facility] Comment on above: Lumbar pain (Primary Dx); Lumbar radiculitis; DDD (degenerative disc disease), lumbar Start: 02-25-2023 End: 02-25-2023 Subsequent hospital visit by physician Patricia Harris MD Work Phone: [facility] Comment on above: Lumbar pain Start: 02-14-2023 End: 02-14-2023 ambulatory [facility] Work Phone: Start: 02-14-2023 End: 02-14-2023 Departed Referred [facility] [address] Start: 01-16-2023 End: 01-16-2023 Departed Referred [facility] [address] Start: 01-09-2023 End: 01-09-2023 ambulatory [facility] Work Phone: Start: 01-09-2023 End: 01-09-2023 Departed Referred [facility] [address] Start: 12-10-2022 Telephone encounter López marcos DDS Work Phone: [facility] Start: 10-30-2022 End: 10-30-2022 ambulatory [facility] Work Phone: Start: 10-30-2022 End: 10-30-2022 Departed Referred [facility] [address] Start: 10-01-2022 End: 10-01-2022 ambulatory [facility] Work Phone: Start: 10-01-2022 End: 10-01-2022 Departed Referred [facility] [address] Start: 06-19-2022 ambulatory LÓPEZ AYALA Facili ty:[facility] Start: 06-19-2022 End: 06-19-2022 Patient encounter procedure López Ayala DDS Work Phone: [facility] Surgery Comment on above: 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); Retained tooth root; Chronic periodontitis Start: 04-17-2022 End: 04-24-2022 ambulatory SELF PATIENT Facility:[facility] Start: 12-21-2021 End: 12-21-2021 Departed Referred [facility] [address] Start: 06-15-2020 End: 06-15-2020 Subsequent hospital visit by physician Maida Doshi Work Phone: [facility] Radiology Start: 05-12-2020 End: 05-12-2020 Subsequent hospital visit by physician Maida Doshi Work Phone: [facility] Laboratory Comment on above: Abnormal finding of blood chemistry, unspecified ; Other hyperlipidemia; HTN (hypertension), benign; Thyroid nodule Start: 05-06-2020 End: 05-06-2020 Emergency department patient visit Johnny Stone Work Phone: [facility] ED Comment on above: Encounter for staple removal (Primary Dx) Start: 01-20-2020 End: 01-20-2020 Subsequent hospital visit by physician Maida Doshi Work Phone: [facility] Laboratory Comment on above: HTN (hypertension), benign; Diabetes mellitus without complication (HCC) Start: 06-05-2019 End: 06-05-2019 Emergency department patient visit Carla Angel Work Phone: [facility] ED Comment on above: Scalp hematoma, [...] Assay of thyroid stimulating hormone tsh Maida Starkeyski Work Phone: Start: 01-20-2020 Blood count [...] Start: 04-12-2023 Influenza vaccination Influenza Vaccine (#1) [facility] Start: 12-21-2022 Lipid panel Lipid Profile [facility] Start: 06-23-2022 Hemoglobin A1c measurement [facility] Start: 05-12-2022 Influenza vaccination Influenza Vaccine (#1) [facility] Start: 01-10-2022 Welcome to Medicare Visit (G0402) Welcome to Medicare Visit (G0402) [facility] Start: 10-28-2021 Thyroid stimulating hormone measurement TSH Level [facility] Start: 05-12-2021 Creatinine measurement Creatinine [facility] [place] Start: 05-12-2021 Potassium monitoring Potassium monitoring [facility] [place], [place] Start: 05-12-2021 TSH Qn TSH testing [facility] [place], [place] Start: 04-29-2021 Creatinine measurement Creatinine monitoring [facility] [place] Start: 04-29-2021 Potassium monitoring Potassium monitoring [facility] [place] Start: 01-19-2021 TSH Qn TSH testing [facility] [place] Start: 11-02-2020 COVID-19 Vaccine (3 - Booster for Pfizer series) COVID-19 Vaccine (3 - Booster for Pfizer series) [facility] Start: 09-28-2020 COVID-19 Vaccine (2 - Pfizer series) COVID-19 Vaccine (2 - Pfizer series) [facility] Start: 05-12-2020 End: 05-12-2020 Office Visit 05/12/2020 Office Visit Family Medicine Maida Doshi MD [address] [place] [id number] [facility] Start: 04-12-2020 Influenza vaccination [facility] [place] Start: 01-01-2020 Creatinine measurement Creatinine [facility] [place] Start: 01-01-2020 Creatinine monitoring Creatinine monitoring [facility] [place] Start: 01-01-2020 Potassium monitoring Potassium monitoring [facility] [place] Start: 01-01-2020 TSH Qn TSH testing [facility] Start: 01-01-2020 TSH testing TSH testing [place] Start: 04-12-2019 Influenza vaccination Flu vaccine (#1) [place] Start: 01-28-2019 Annual Wellness Visit (AWV) Annual Wellness Visit (AWV) [place] Start: 08-29-2018 Pneumococcal 65+ years Vaccine (2 of 2 - PPSV23) Pneumococcal 65+ years Vaccine (2 of 2 - PPSV23) [place] Start: 08-29-2018 Pneumococcal vaccination Pneumococcal Vaccine(s) (65+ yrs) (2 - PPSV23 if available, else PCV20) [facility] Start: 10-24-2017 Pneumococcal vaccination Pneumococcal Vaccine(s) (65+ yrs) (2 - PPSV23 if available, else PCV20) [facility] Start: 10-24-2017 Pneumococcal Vaccine: 65+ Years (2 - PPSV23 if available, else PCV20) Pneumococcal Vaccine: 65+ Years (2 - PPSV23 if available, else PCV20) [facility] Start: 10-31-2000 Screening for osteoporosis Bone Densitometry [facility] Start: 10-31-1985 Shingles (RZV) Vaccine (1 of 2) Shingles (RZV) Vaccine (1 of 2) [facility] Start: 10-31-1985 Shingles Vaccine (1 of 2) Shingles Vaccine (1 of 2) [place] Start: 10-31-1985 Zoster Vaccines (1 of 2) Zoster Vaccines (1 of 2) [facility] Start: 10-31-1954 DTaP/Tdap/Td vaccine (1 - Tdap) DTaP/Tdap/Td vaccine (1 - Tdap) [place] Start: 10-31-1954 DTaP/Tdap/Td Vaccines (1 - Tdap) DTaP/Tdap/Td Vaccines (1 - Tdap) [facility] Start: 10-31-1953 Tetanus + diphtheria + acellular pertussis vaccine (product) Tdap [facility] Start: 1947 Depresssion Monitoring Depresssion Monitoring [facility] Start: 1935 Diabetic retinal eye exam Eye Exam [facility] Start: 1935 Lipid panel Lipid Profile [facility] Start: 1935 Urine screening [facility]: [facility] Basic metabolic 2000 panel - Serum or Plasma Basic Metabolic Panel [facility] Start: 1935 Diabetic foot examination [facility] Start: 1935 Screening for osteoporosis Bone Density Scan [facility] Start: 1935 Thyroid stimulating hormone measurement TSH [facility] Immunizations Immunization Date Immunization Notes Care Provider Fa cility 12-21-2021 Hemoglobin A1C López Ayala DDS Work Phone: [facility] 09-07-2020 Pfizer Monovalent (1 2+ yrs) SARS-COV-2 (COVID-19) vaccine, mRNA, spike protein, LNP, pres. free, 30 mcg/0.3mL dose (SUQ=791) López Ayala DDS Work Phone: [facility] 08-17-2020 Pfizer Monovalent (1 2+ yrs) SARS-COV-2 (COVID-19) vaccine, mRNA, spike protein, LNP, pres. free, 30 mcg/0.3mL dose (OSB=027) López Ayala DDS Work Phone: [facility] 08-29-2017 influenza, high dose seasonal, preservative-free [facility] 08-29-2017 pneumococcal conjuga te vaccine, 13 valent [facility] 08-29-2017 influenza virus vaccine, unspecified formulation López Ayala DDS Work Phone: [facility] 09-19-2016 influenza, injectabl e, quadrivalent, contains preservative [facility] 06-16-2015 influenza virus vaccine, unspecified formulation [facility] Work Phone: 06-16-2015 influenza virus vaccine, whole virus López Ayala DDS Work Phone: [facility] Payers Date Payer Category Payer Self-pay [id number] 2024 Unknown [id number] 2022 Unknown [employer] [id number] 2022-Present [phone] [address] [place] [address] Indemnity [id number] 2022 Medicare [id number] 2022 Unknown [id number] 2017 Private Health Insurance [employer] MEDICARE SUPP [id number] 2017-Present [phone] [address] [place] [address] [id number] 2015 Medicare xxxxxxxxxxx [id number] 2015 Medicare [id number] 1935 Unknown [id number] 1935 Unknown [id number] Unknown [id number] 462 Unknown [id number] 462 Unknown [id number] 462 Unknown [id number] 462 Unknown [id number] 462 Unknown [id number] 462 Social History Date Type Detail Facility Start: 06-05-2019 End: 04-17-2022 Tobacco smoking status TXIS Never smoker [facility] Start: 06-05-2019 End: 07-31-2022 Alcohol intake Current non-drinker of alcohol (finding) [facility] Start: 1935 [facility] Exposure to SARS-CoV -2 (event) Unable to assess [facility] Start: 05-06-2020 End: 05-12-2020 Tobacco smoking status [facility] Start: 05-06-2020 End: 04-17-2022 Tobacco use and exposure Never used [facility] Start: 02-15-2023 End: 02-25-2023 Exposure to SARS-CoV-2 (event) Not sure [facility] Start: 06-05-2019 End: 07-31-2022 Alcohol intake No [facility] Start: 1935 Sex Assigned At Female [facility] History of tobacco use Current smoker [facility] Start: 07-31-2022 History of Social function [facility] Tobacco smoking stat [facility] Unknown if ever smoked [facility] Work Phone: Medical Equipment Procedure Code Equipment Code Equipment Origin al Text Equipment Identifier Dates Test daily fasti ng dx Dispense as covered by PT insurance [id number] Start: 01-14-2017 Dx E11.9 TEST ON CE DAILY PATIENT USES PRODIGY [id number] Start: 01-14-2017 Clinical Notes 06-19-2022 to 02-25-2023 Patricia Harris MD - 02/25/2023 9:45 AM EDTTelephone Encounter - Dial, Adilene - 12/10/2022 4:18 PM EDTTelephone Encounter - Dial, Adilene - 12/10/2022 4:18 PM Amanda Palmer - 06/19/2022 9:11 AM EST Note Date & Type Note Facility 02-25-2023 History of Presen t illness Narrative Images from the original note were not included. 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 No significant change in her back pain for 3 years. 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 We recommended continued maintenance of her strength level and continued formal physical therapy. We will go ahead and write an order for her to get formal physical therapy at [facility] care for her chronic weakness. Follow-up with neurology for any potential care for her left hemiparesis. Follow up if symptoms worsen or fail to improve, for call our office with any questions at [phone]. Patricia Harris MD 02/25/2023 10:03 AM Please note that portions of this note may have been completed with voice recognition software. Documentation reviewed prior to signing but minor errors in topography technician may have occurred. documented in this encounter [facility] 12-10-2022 Telephone encounter Note Patient is calling to states she had dentures that Dr Ayala took to have them to realign. Patient states the bottom denture was never returned to her. Patient states the dentures were not made in the clinic. They were made outside of [facility]. When she seen Dr Ayala in June 2022 he performed another mold and she is waiting to pick them up. Pls call pt @ [phone] Thank you [facility] 12-10-2022 Miscellaneous Notes Patient is calling to states she had her dentures made in oral surgery and Dr Ayala took them to realign them and she has never had them returned. Pls call pt @ [phone] Thank you Spoke with patient regarding her dentures. Explained to her that Dr. Ayala does not make dentures. Provided the contact information for [facility] and explained that if these dentures have been made by a [facility] provider, this is the department that will have them, otherwise she will need to see an outside dentist to have dentures made. Patient understood. Titus Ramirez DMD Oral & Maxillofacial Surgery, PGY-3 Team Pager: [phone] The patient called in looking for her [...] about this and can be reached at [phone] Thank You! documented in this encounter [facility] 12-10-2022 Miscellaneous Notes Patient is calling to states she had dentures that Dr Ayala took to have them to realign. Patient states the bottom denture was never returned to her. Patient states the dentures were not made in the clinic. They were made outside of [facility]. When she seen Dr Ayala in June 2022 he performed another mold and she is waiting to pick them up. Pls call pt @ [phone] Thank you Spoke with patient regarding her dentures. Explained to her that Dr. Ayala does not make dentures. Provided the contact information for [facility] and explained that if these dentures have been made by a [facility] provider, this is the department that will have them, otherwise she will need to see an outside dentist to have dentures made. Patient understood. Titus Ramirez DMD Oral & Maxillofacial Surgery, PGY-3 Team Pager: [phone] The patient called in looking for her [...] about this and can be reached at [phone] Thank You! documented in this encounter [facility] 12-10-2022 Telephone encounter Note Spoke with patient regarding her dentures. Explained to her that Dr. Ayala does not make dentures. Provided the contact information for [facility] and explained that if these dentures have been made by a [facility] provider, this is the department that will have them, otherwise she will need to see an outside dentist to have dentures made. Patient understood. Titus Ramirez DMD Oral & Maxillofacial Surgery, PGY-3 Team Pager: [phone] [facility] Work Phone: 12-10-2022 Telephone encounter Note [...] about this and can be reached at [phone] Thank You! [facility] 06-26-2022 Note I was personally pre sent for the otero portions of the procedure. López Ayala DDS [facility] 06-26-2022 History of Presen t illness Narrative I was personally present for the otero portions of the procedure. López Ayala DDS ORAL SURGERY PROCEDURE ROOM NOTE [facility] Product(s): Routine extraction teeth 2, 4, 5, 8, 9, 10, 11, 12, 14 under local anesthetic. PMH: Reviewed, no change. Antibiotic prophylaxis indicated/taken: not applicable Discussed risks, benefits, and alternatives of treatment. 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 documented in this encounter [facility] 06-19-2022 Note ORAL SURGERY PROCEDU RE ROOM NOTE [facility] Product(s): Routine extraction teeth 2, 4, 5, 8, 9, 10, 11, 12, 14 under local anesthetic. PMH: Reviewed, no change. Antibiotic prophylaxis indicated/taken: not applicable Discussed risks, benefits, and alternatives of treatment. 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 [facility] [phone]. HELPING THE HEALING PROCESS AND STOPPING THE [...] any questions or concerns please contact us: [facility] . Ask for the behavioral health consultant regional environmental manager (after hours). press reader Clinic Hours: Mon-Fri 8:30 am to 4:30 pm. 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- Primary Dental caries extending into pulp Retained tooth root Retained dental root Chronic periodontitis Chronic periodontitis, unspecified [facility] Diagnosis Lumbar pain- Primary Lumbago Lumbar radiculitis DDD (degenerative disc disease), lumbar Degeneration of lumbar or lumbosacral intervertebral disc [facility] Lumbar pain Lumbago [facility] (n[facility]ative[facility] Consultation (Routine) - Pending Review Specialty Diagnoses / Procedures Referred By Tish thibodeaux Referred To Contact Physical Therapy Diagnoses Lumbar pain Lumbar radiculitis DDD (degenerative disc disease), lumbar Procedures NE OFFICE/OUTPATIENT [facility] 60-74 MINUTES Patricia Harris MD [address] [place] [address] Referral ID Status Reason Start Date Expiration Date Visits Requested Visits Authorized [id number] Pending Review Specialty Services Required 02/25/2023 02/25/[address] [facility] for referral (narrative)No reason for referral [facility] Work Phone: Assessments Diagnosis HTN (hypertension), benign [...] FoundDocuments on File Type Date Recorded Patient Office System Analyst Expl anation Advance Directives and Living Will Power of Circular Saw Filer Documents on File Type Date Recorded Patient Office System Analyst Expl anation ACP-Advance Directive ACP-Power of Circular Saw Filer Latest Code Status on File Code Status Date Activated Date Inactivated Comments Full Code 04/28/2020 2:42 AM 04/30/2020 6:01 PM Discharge Instructions * Attachments The following attachments cannot be sent through Care Everywhere. * Stitches and Leonid Removal: General Info ([place]ese) documented in this encounter* Attachments The following attachments cannot be sent through Care Everywhere. * Head Injury: Closed: General Info ([place]) documented in this encounter Summary Purpose Family [...] Visit Chief Complaint LABWORK Chief Complaint LABWORK USP LABWORK Chief Complaint LABWORK USP LABWORK LABWORK Chief Complaint LABWORK LABWORK USP LAB WORK Chief Complaint USP LAB WOR K LABWORK Chief Complaint LABWORK [...] section and content) DATE CREATED AUTHOR [facility]16/2020 [facility] DATE CREATED AUTHOR AUTHOR'S ORGANIZ ATION 12/11/2022 [facility] DATE CREATED AUTHOR AUTHOR'S ORGANIZ ATION 02/26/2023 [facility] DATE CREATED AUTHOR AUTHOR'S ORGANIZ ATION 12/24/2024 [facility] DATE CREATED AUTHOR AUTHOR'S ORGANIZ ATION 06/09/2025 [facility] Goals (unrecognized section and content) Goals [...] HERNANDEZ Attending Provider, Referring Provid er Active Cna Per Diem Relationship Specialty Start Date End Date Maida Doshi MD [address] [place] [address] PCP - General Family Medicine 02/25/23 Cna Per Diem Relationship Specialty Start Date End Date Maida Doshi MD [address] [place] [id number] PCP - General Family Medicine 02/25/23 Team [...] BE BASED ON THE PRIMARY CLINICAL RECORDS. [employer] provides no warranty or guarantee of the accuracy or completeness of information in this document.
[2025-07-12 08:29] LABS: Hematocrit 44.5 % (37-47); Hemoglobin 14.0 g/dL (12.0-15.0); Mean Corp Hgb Conc 31.5 g/dL (32-36); Mean Corpuscular Volume 98.9 fL (81-99); Mean Platelet Vol. 10.1 fl (6.2-12.0); Platelet Count 274 K/mm3 (150-450); RBC Distribution Width CV 12.9 % (11.6-14.6); RBC Distribution Width SD 46.9 fl (35.1-43.9); Red Blood Count 4.50 M/mm3 (4.2-5.4); White Blood Count 9.5 K/mm3 (4.4-11.0)
[2025-07-12 08:56] LABS: Anion Gap 9 (5-15); BUN 24 mg/dL (4-19); BUN/Creat Ratio 38.0 RATIO (10-20); Calcium,Total 10.0 mg/dL (7.6-11.0); Carbon Dioxide 26.0 mmol/L (21.0-32.0); Chloride 106 mmol/L (98-108); Cholesterol 234 mg/dL (<=200); Glucose 102 mg/dL (70-99); Low Density Lipoprotein Calc. 148 mg/dL; Magnesium 2.4 mg/dL (1.5-2.2); Potassium 4.6 mmol/L (3.3-5.1); T3 Total - Triiodothyronine 0.82 ng/mL (0.80-2.00); T4 Total, Thyroxin 5.5 ug/dL (4.8-13.9); Triglycerides 243 mg/dL; Very Low Density Lipoprotein 49 mg/dL (5-40); Vitamin D,25 Hydroxy 64.2 ng/mL (30-100); cholesterol:hdl ratio screen 5.56
== END ==
LOC: OLS.ACW100 04:00
PROVIDERS: Referring Provider Family Medicine; Visit Provider Family Medicine
DX: M62.82 Rhabdomyolysis (principal); M62.81 Muscle weakness (generalized)
CPT/HCPCS: 36415; 80048; 80061; 82306; 83036; 83735; 84436; 84443; 84480; 85027